=== PATIENT | female | born 1940 | race Caucasian/White ===

== ENCOUNTER 2020-07-28 12:00 | Outpatient (REF) | payer MEDICARE, OTHER, SELFPAY ==
[2020-07-28 12:43] LABS: MANUAL DIFF FLAG NO
[2020-07-28 12:44] LABS: Basophils Percent Auto 0.4 % (0-2); Eosinophils Absolute Auto 0.2 X10*3/uL (0.0-0.4); Eosinophils Percent Auto 2.5 % (0-4); Hematocrit 37.9 % (37-47); Hemoglobin 11.9 g/dl (12.0-16.0); Imm Gran Abs Auto 0.03 X10*3/uL (0.00-0.03); Imm Gran Pct Auto 0.3 % (0.0-0.4); Lymphocytes Absolute Auto 2.7 X10*3/uL (1.2-4.9); Lymphocytes Percent Auto 28.1 % (20-40); Mean Corpuscular HGB Conc 31.4 g/dl (31.0-35.0); Mean Corpuscular Hemoglobin 23.7 pg (27.0-33.0); Mean Corpuscular Volume 75.5 fL (80-98); Mean Platelet Volume 9.7 fL (9.4-12.3); Monocytes Absolute Auto 0.7 X10*3/uL (0.1-1.2); Monocytes Percent Auto 7.6 % (2-11); Neutrophils Absolute Auto 5.9 X10*3/uL (2.0-8.3); Neutrophils Percent Auto 61.1 % (45-73); Platelet Count 372 X10*3/uL (160-400); Red Blood Count 5.02 X10*6/uL (4.20-5.50); Red Cell Distribution Width 14.3 % (11.0-16.0); White Blood Count 9.7 X10*3/uL (4.8-10.8)
[2020-07-28 12:50] LABS: Estimated Average Glucose 169 mg/dL; Hemoglobin A1c % 7.5 %
[2020-07-28 13:11] LABS: Anion Gap 17 (12-20); Blood Urea Nitrogen 25 mg/dL (9-16); Calcium 9.7 mg/dL (8.4-10.2); Carbon Dioxide 32 mmol/L (22-29); Chloride 98 mmol/L (96-108); Cholesterol 172 mg/dL; Estimated Glomerular Filt Rate 57; Glucose Fasting 95 mg/dL (60-99); HDL Cholesterol 57 mg/dL; LDL Cholesterol Calculated 94 mg/dl; Sodium 143 mmol/L (135-145); Triglycerides 107 mg/dL
== END 2020-07-28 12:01 | disposition home or self-care (01) ==
LOC: HO.LAB 12:00
PROVIDERS: PCP Internal Medicine; Visit Provider Nurse Practitioner Family
DX: I25.10 Atherosclerotic heart disease of native coronary artery without angina pectoris (principal); I10 Essential (primary) hypertension; E11.65 Type 2 diabetes mellitus with hyperglycemia; J32.9 Chronic sinusitis, unspecified
CPT/HCPCS: 36415; 80048; 80061; 83036; 85025

== ENCOUNTER 2020-08-12 09:36 | Outpatient (REF) | payer MEDICARE, OTHER, SELFPAY ==
--- NOTE | 2020-08-12 09:43 | XR_ITS ---
EXAMINATION: XR SHOULDER, LEFT CLINICAL INFORMATION: Pain COMPARISON: None TECHNIQUE: AP external rotation, Grashey, scapular Y, and axillary views of the left shoulder. FINDINGS: Humeral head may be slightly high with respect to the glenoid. Bone alignment is otherwise normal. No fracture or dislocation is seen. There is arthritis at the acromioclavicular joint. There is a small undersurface acromial osteophyte. Soft tissues are unremarkable. XR/XR shoulder LT min 2V IMPRESSION: Arthritis at the acromioclavicular joint and undersurface acromial osteophyte. High humeral head with respect to the glenoid questionable for rotator cuff disease.
== END 2020-08-12 09:37 | disposition home or self-care (01) ==
LOC: HO.XRAY 09:36
PROVIDERS: PCP Internal Medicine; Visit Provider Internal Medicine
DX: E11.65 Type 2 diabetes mellitus with hyperglycemia (principal)
CPT/HCPCS: 73030

== ENCOUNTER 2020-08-17 08:28 | Outpatient (REF) | payer MEDICARE, OTHER, SELFPAY | END 2020-08-17 08:29 | disposition home or self-care (01) | LOC: HO.HOSX 08:28 | PROVIDERS: Visit Provider Orthopaedic Surgery | DX: Z13.89 Encounter for screening for other disorder (principal) ==

== ENCOUNTER → 2020-09-03 09:24 | Outpatient (BNVA) | payer MEDICARE, OTHER, SELFPAY | PROVIDERS: Visit Provider Orthopaedic Surgery | DX: M12.819 Other specific arthropathies, not elsewhere classified, unspecified shoulder (principal) | CPT/HCPCS: 99202 ==

== ENCOUNTER 2020-11-19 09:08 | Outpatient (REF) | payer MEDICARE, OTHER, SELFPAY ==
[2020-11-19 09:42] LABS: MANUAL DIFF FLAG NO
[2020-11-19 09:45] LABS: Basophils Absolute Auto 0.1 X10*3/uL (0.0-0.2); Basophils Percent Auto 0.6 % (0-2); Eosinophils Absolute Auto 0.2 X10*3/uL (0.0-0.4); Eosinophils Percent Auto 2.5 % (0-4); Hematocrit 35.5 % (37-47); Hemoglobin 11.1 g/dl (12.0-16.0); Imm Gran Abs Auto 0.05 X10*3/uL (0.00-0.03); Imm Gran Pct Auto 0.5 % (0.0-0.4); Lymphocytes Absolute Auto 2.7 X10*3/uL (1.2-4.9); Mean Corpuscular HGB Conc 31.3 g/dl (31.0-35.0); Mean Corpuscular Hemoglobin 23.4 pg (27.0-33.0); Mean Corpuscular Volume 74.9 fL (80-98); Mean Platelet Volume 9.5 fL (9.4-12.3); Monocytes Absolute Auto 0.7 X10*3/uL (0.1-1.2); Monocytes Percent Auto 7.9 % (2-11); Neutrophils Absolute Auto 5.6 X10*3/uL (2.0-8.3); Neutrophils Percent Auto 59.5 % (45-73); Platelet Count 347 X10*3/uL (160-400); Red Blood Count 4.74 X10*6/uL (4.20-5.50); Red Cell Distribution Width 14.9 % (11.0-16.0); White Blood Count 9.4 X10*3/uL (4.8-10.8)
[2020-11-19 09:57] LABS: Estimated Average Glucose 169 mg/dL; Hemoglobin A1c % 7.5 %
[2020-11-19 10:08] LABS: Alanine Aminotransferase 15 U/L (0-31); Albumin Level 4.4 g/dL (3.5-5.0); Alkaline Phosphatase 113 U/L (39-117); Anion Gap 14 (12-20); Aspartate Amino Transferase 11 U/L (5-31); Bilirubin Total 0.4 mg/dL (0.0-1.0); Blood Urea Nitrogen 22 mg/dL (9-16); Calcium 9.6 mg/dL (8.4-10.2); Carbon Dioxide 34 mmol/L (22-29); Chloride 99 mmol/L (96-108); Cholesterol 195 mg/dL; Estimated Glomerular Filt Rate 49; Glucose Fasting 98 mg/dL (60-99); HDL Cholesterol 56 mg/dL; Iron 36 mcg/dL (30-160); LDL Cholesterol Calculated 108 mg/dl; Percent Iron Saturation 8 % (15-50); Potassium 4.2 mmol/L (3.3-5.1); Sodium 143 mmol/L (135-145); Total Iron Binding Capacity 441 mcg/dL (228-428); Total Protein 7.7 g/dL (6.5-8.0); Triglycerides 155 mg/dL; Unsaturated Iron Binding 405 ug/dL
[2020-11-19 10:25] LABS: Creatinine Urine 53.17 mg/dL; Microalbum/Creatinine Ratio Ur 379.9 ug/mg cr
[2020-11-19 11:43] LABS: Folate 9.8 ng/mL (> or = 4.0); Vitamin B12 338 pg/mL (200-900)
== END 2020-11-19 09:09 | disposition home or self-care (01) ==
LOC: HO.LAB 09:08
PROVIDERS: PCP Internal Medicine; Visit Provider Internal Medicine
DX: E11.65 Type 2 diabetes mellitus with hyperglycemia (principal); E78.5 Hyperlipidemia, unspecified; D64.9 Anemia, unspecified
CPT/HCPCS: 36415; 80053; 80061; 82043; 82607; 82746; 83036; 83540; 85025

== ENCOUNTER 2021-05-04 07:59 | Outpatient (REF) | payer MEDICARE, OTHER, SELFPAY ==
[2021-05-04 08:22] LABS: MANUAL DIFF FLAG NO
[2021-05-04 09:13] LABS: Basophils Percent Auto 0.4 % (0-2); Eosinophils Absolute Auto 0.2 X10*3/uL (0.0-0.4); Eosinophils Percent Auto 1.6 % (0-4); Hemoglobin 11.8 g/dl (12.0-16.0); Imm Gran Abs Auto 0.04 X10*3/uL (0.00-0.03); Imm Gran Pct Auto 0.4 % (0.0-0.4); Lymphocytes Absolute Auto 2.4 X10*3/uL (1.2-4.9); Lymphocytes Percent Auto 22.9 % (20-40); Mean Corpuscular HGB Conc 31.9 g/dl (31.0-35.0); Mean Corpuscular Hemoglobin 23.5 pg (27.0-33.0); Mean Corpuscular Volume 73.7 fL (80-98); Mean Platelet Volume 9.8 fL (9.4-12.3); Monocytes Absolute Auto 0.7 X10*3/uL (0.1-1.2); Monocytes Percent Auto 6.9 % (2-11); Neutrophils Percent Auto 67.8 % (45-73); Platelet Count 345 X10*3/uL (160-400); Red Blood Count 5.02 X10*6/uL (4.20-5.50); Red Cell Distribution Width 15.3 % (11.0-16.0); White Blood Count 10.3 X10*3/uL (4.8-10.8)
[2021-05-04 09:33] LABS: Creatinine Urine 35.99 mg/dL; Microalbum/Creatinine Ratio Ur 575.1 ug/mg cr
[2021-05-04 09:41] LABS: Alanine Aminotransferase 14 U/L (0-31); Albumin Level 4.4 g/dL (3.5-5.0); Alkaline Phosphatase 113 U/L (39-117); Anion Gap 16 (12-20); Aspartate Amino Transferase 12 U/L (5-31); Bilirubin Total 0.5 mg/dL (0.0-1.0); Blood Urea Nitrogen 20 mg/dL (9-16); Calcium 10.1 mg/dL (8.4-10.2); Carbon Dioxide 29 mmol/L (22-29); Chloride 100 mmol/L (96-108); Cholesterol 183 mg/dL; Estimated Glomerular Filt Rate 48; Glucose Fasting 131 mg/dL (60-99); HDL Cholesterol 57 mg/dL; LDL Cholesterol Calculated 107 mg/dl; Potassium 4.1 mmol/L (3.3-5.1); Sodium 141 mmol/L (135-145); Total Protein 7.8 g/dL (6.5-8.0); Triglycerides 95 mg/dL
[2021-05-08 12:45] LABS: Vitamin D 25-OH, D2 <4 ng/mL; Vitamin D 25-OH, D3 34 ng/mL; Vitamin D 25-OH, Total 34 ng/mL (30-100)
== END 2021-05-04 08:00 | disposition home or self-care (01) ==
LOC: HO.LAB 07:59
PROVIDERS: PCP Internal Medicine; Visit Provider Internal Medicine
DX: E11.65 Type 2 diabetes mellitus with hyperglycemia (principal); D64.9 Anemia, unspecified; E78.5 Hyperlipidemia, unspecified; E55.9 Vitamin D deficiency, unspecified
CPT/HCPCS: 36415; 80053; 80061; 82043; 82306; 85025

== ENCOUNTER → 2021-06-03 11:52 | Outpatient (REF) | payer MEDICARE, OTHER, SELFPAY ==
--- NOTE | 2021-06-03 12:05 | ECG_ITS ---
Test Reason : chest pain Blood Pressure : / mmHG Vent. Rate : 085 BPM Atrial Rate : 085 BPM P-R Int : 212 ms QRS Dur : 126 ms QT Int : 386 ms P-R-T Axes : 084 046 063 degrees QTc Int : 459 ms Sinus rhythm with 1st degree A-V block Right bundle branch block Nonspecific ST abnormality Abnormal ECG No previous ECGs available Referred By: Pam Montoya Electronically Signed By:LIAM CARRANZA MD
== END ==
LOC: HO.CARD 11:52
PROVIDERS: PCP Internal Medicine; Visit Provider Internal Medicine
DX: R07.9 Chest pain, unspecified (principal)
CPT/HCPCS: 93005

== ENCOUNTER 2021-06-23 06:37 | Outpatient (REF) | payer MEDICARE, OTHER, SELFPAY ==
[2021-06-23 06:42] LABS: MANUAL DIFF FLAG NO
[2021-06-23 07:20] LABS: Basophils Absolute Auto 0.1 X10*3/uL (0.0-0.2); Basophils Percent Auto 0.7 % (0-2); Eosinophils Absolute Auto 0.2 X10*3/uL (0.0-0.4); Eosinophils Percent Auto 1.8 % (0-4); Hematocrit 38.2 % (37.0-47.0); Hemoglobin 12.5 g/dl (12.0-16.0); Imm Gran Abs Auto 0.02 X10*3/uL (0.00-0.03); Imm Gran Pct Auto 0.2 % (0.0-0.4); Lymphocytes Absolute Auto 3.2 X10*3/uL (1.2-4.9); Lymphocytes Percent Auto 37.6 % (20-40); Mean Corpuscular HGB Conc 32.7 g/dl (31.0-35.0); Mean Corpuscular Hemoglobin 24.8 pg (27.0-33.0); Mean Corpuscular Volume 75.6 fL (80.0-98.0); Mean Platelet Volume 9.9 fL (9.4-12.3); Monocytes Absolute Auto 0.8 X10*3/uL (0.1-1.2); Monocytes Percent Auto 9.1 % (2-11); Neutrophils Absolute Auto 4.2 x10*3/uL (2.0-8.3); Neutrophils Percent Auto 50.6 % (45-73); Platelet Count 323 X10*3/uL (160-400); Red Blood Count 5.05 X10*6/uL (4.20-5.50); Red Cell Distribution Width 14.3 % (11.0-16.0); White Blood Count 8.4 X10*3/uL (4.8-10.8)
[2021-06-23 07:42] LABS: Alanine Aminotransferase 14 U/L (0-31); Albumin Level 4.6 g/dL (3.5-5.0); Alkaline Phosphatase 92 U/L (39-117); Anion Gap 16 (12-20); Aspartate Amino Transferase 12 U/L (5-31); Bilirubin Total 0.5 mg/dL (0.0-1.0); Blood Urea Nitrogen 31 mg/dL (9-16); Calcium 10.1 mg/dL (8.4-10.2); Carbon Dioxide 31 mmol/L (22-29); Chloride 99 mmol/L (96-108); Estimated Glomerular Filt Rate 42; Glucose Random 147 mg/dL (60-115); Magnesium 1.6 mg/dL (1.6-2.6); Potassium 4.3 mmol/L (3.3-5.1); Sodium 142 mmol/L (135-145); Total Protein 8.1 g/dL (6.5-8.0)
== END 2021-06-23 06:38 | disposition home or self-care (01) ==
LOC: HO.LAB 06:37
PROVIDERS: PCP Internal Medicine; Visit Provider Internal Medicine
DX: I48.91 Unspecified atrial fibrillation (principal); E11.65 Type 2 diabetes mellitus with hyperglycemia; G62.9 Polyneuropathy, unspecified
CPT/HCPCS: 36415; 80053; 83735; 85025

== ENCOUNTER → 2021-07-13 08:53 | Outpatient (BNVA) | payer MEDICARE, OTHER, SELFPAY | PROVIDERS: PCP Internal Medicine; Referring Provider Internal Medicine; Visit Provider Nurse Practitioner Family | DX: G47.19 Other hypersomnia (principal); G47.9 Sleep disorder, unspecified; R06.83 Snoring | CPT/HCPCS: 99202 ==

== ENCOUNTER → 2021-08-12 12:55 | Outpatient (BNVA) | payer MEDICARE, OTHER, SELFPAY | PROVIDERS: PCP Internal Medicine; Referring Provider Internal Medicine; Visit Provider Internal Medicine Cardiovascular Disease | DX: I48.0 Paroxysmal atrial fibrillation (principal) | CPT/HCPCS: 93005; 99202 ==

== ENCOUNTER → 2021-09-01 08:59 | Outpatient (REF) | payer MEDICARE, OTHER, SELFPAY ==
--- NOTE | ~2021-09-01 | MM_ITS ---
EXAMINATION: BONE DENSITOMETRY CLINICAL INDICATION: Encounter for screening for osteoporosis. COMPARISON: This is the patient's baseline examination. TECHNIQUE: Using a GoGoPin DXA System (software version: 13.1) manufactured by [employer], dual-energy x-ray absorptiometry was performed of the lumbar spine and left hip. The images are of good technical quality. Summary results are attached. FINDINGS: AP SPINE L1-L4: BMD 0.934 g/cm2, Z-score -0.1, T-score -2.0, osteopenia. LEFT FEMUR, NECK: BMD 0.694 g/cm2, Z-score -0.2, T-score -2.5, osteoporosis. LEFT FEMUR, TOTAL: BMD 0.858 g/cm2, Z-score 1.0, T-score -1.2, osteopenia. IDENTIFIED RISK FACTORS: Menopause, history of fracture (adult), anticonvulsants, height loss. HISTORY OF FRACTURE: Shoulder. MEDICATIONS: None listed. MM/XR DEXA axial skeleton IMPRESSION: 1. DIAGNOSIS: Osteoporosis based on the lowest T-score value of -2.5 in the femoral neck applying World Health Organization criteria. 2. 10 10-YEAR FRACTURE RISK PREDICTION, FRAX: According to the guidelines, FRAX calculation should only be performed on patients in the osteopenia bone density category. Therefore, FRAX was not performed on this patient. 3. Treatment Recommendations: NOF guidelines recommend consideration for treatment in postmenopausal women and men age 50 and older presenting with the following: -A hip or vertebral (clinical or morphometric) fracture. -T-score less than or equal to -2.5 at the femoral neck or spine after appropriate evaluation to exclude secondary causes. -Low bone mass at the hip or spine and a 10-year fracture probability by FRAX of greater than or equal to 3% for hip fracture or greater than or equal to 20% for major osteoporotic fracture based on the [place] adapted WHO algorithm. 4. Other Recommendations: All treatment decisions require clinical judgment and consideration of individual patient factors, including patient preferences, comorbidities, previous drug use, risk factors not captured in the FRAX model (e.g. frailty, falls, vitamin D deficiency, increased bone turnover, interval significant decline in bone density) and possible under or overestimation of fracture risk by FRAX. Additional medical evaluation for secondary cause of low bone mineral density may be appropriate. FUTURE SCAN RECOMMENDATION: People with diagnosed cases of osteoporosis or at high risk for fracture should have regular bone mineral density tests. For patients eligible for Medicare, routine testing is allowed once every 2 years. The testing frequency can be increased to one year for patients who have rapidly progressing disease, those who are receiving or discontinuing medical therapy to restore bone mass, or have additional risk factors.
== END ==
LOC: HO.SL 08:59
PROVIDERS: Visit Provider Nurse Practitioner Family
DX: Z13.820 Encounter for screening for osteoporosis (principal); G47.19 Other hypersomnia; G47.9 Sleep disorder, unspecified; R06.83 Snoring; R29.890 Loss of height; Z78.0 Asymptomatic menopausal state; Z79.899 Other long term (current) drug therapy
CPT/HCPCS: 77080; 95806

== ENCOUNTER 2021-09-04 07:48 | Outpatient (REF) | payer MEDICARE, OTHER, SELFPAY ==
--- NOTE | ~2021-09-04 | MM_ITS ---
EXAMINATION: MM SCREENING DIGITAL BREAST TOMOSYNTHESIS, BILATERAL CLINICAL INFORMATION: Screening. Asymptomatic. The lifetime risk of breast cancer based on the Tyrer-Cuzick Model is under 2%. COMPARISON: Outside mammography: 07/01/2019 ([facility]) TECHNIQUE: Digital breast tomosynthesis is performed in both the craniocaudal and mediolateral oblique views along with computer-aided detection (CAD). Synthesized 2D images are generated from the tomosynthesis. FINDINGS: The breasts are heterogeneously dense, which may obscure small masses (ACR BI-RADS breast composition Category c). Parenchymal pattern is similar to outside exam. There is no significant mass or architectural abnormality. Biopsy clip marker again seen adjacent to old stable nodule mid upper outer right breast. There are scattered bilateral round and coarse and vascular calcifications again seen. The axilla and skin contours are unremarkable. No significant changes. MM/MM tomosynthesis screening BI IMPRESSION: No mammographic evidence of malignancy. ASSESSMENT: BI-RADS 2: Benign RECOMMENDATION: Routine annual mammography screening. This patient's information was entered into a reminder system with a target due date for their next mammogram.
== END 2021-09-04 07:49 | disposition home or self-care (01) ==
LOC: HO.MAMMO 07:48
PROVIDERS: PCP Internal Medicine; Visit Provider Internal Medicine
DX: Z12.31 Encounter for screening mammogram for malignant neoplasm of breast (principal)
CPT/HCPCS: 77063; 77067

== ENCOUNTER 2021-09-22 14:48 | Outpatient (REF) | payer MEDICARE, OTHER, SELFPAY ==
[2021-09-22 15:55] LABS: MANUAL DIFF FLAG NO
[2021-09-22 16:27] LABS: Basophils Percent Auto 0.5 % (0-2); Eosinophils Absolute Auto 0.1 X10*3/uL (0.0-0.4); Eosinophils Percent Auto 1.4 % (0-4); Hematocrit 34.6 % (37.0-47.0); Imm Gran Abs Auto 0.02 X10*3/uL (0.00-0.03); Imm Gran Pct Auto 0.2 % (0.0-0.4); Lymphocytes Absolute Auto 2.7 X10*3/uL (1.2-4.9); Lymphocytes Percent Auto 31.1 % (20-40); Mean Corpuscular HGB Conc 31.8 g/dl (31.0-35.0); Mean Corpuscular Hemoglobin 24.5 pg (27.0-33.0); Mean Corpuscular Volume 77.1 fL (80.0-98.0); Mean Platelet Volume 9.7 fL (9.4-12.3); Monocytes Absolute Auto 0.6 X10*3/uL (0.1-1.2); Monocytes Percent Auto 7.2 % (2-11); Neutrophils Absolute Auto 5.1 x10*3/uL (2.0-8.3); Neutrophils Percent Auto 59.6 % (45-73); Platelet Count 310 X10*3/uL (160-400); Red Blood Count 4.49 X10*6/uL (4.20-5.50); Red Cell Distribution Width 14.5 % (11.0-16.0); White Blood Count 8.5 X10*3/uL (4.8-10.8)
[2021-09-22 16:56] LABS: Alanine Aminotransferase 13 U/L (0-31); Albumin Level 4.2 g/dL (3.5-5.0); Alkaline Phosphatase 118 U/L (39-117); Anion Gap 13 (12-20); Aspartate Amino Transferase 12 U/L (5-31); Bilirubin Total 0.4 mg/dL (0.0-1.0); Blood Urea Nitrogen 26 mg/dL (9-16); Calcium 9.9 mg/dL (8.4-10.2); Carbon Dioxide 31 mmol/L (22-29); Chloride 100 mmol/L (96-108); Estimated Glomerular Filt Rate 45; Glucose Random 145 mg/dL (60-115); Phosphorus 2.9 mg/dL (2.7-4.5); Potassium 4.5 mmol/L (3.3-5.1); Sodium 139 mmol/L (135-145); Total Protein 7.4 g/dL (6.5-8.0)
[2021-09-22 17:17] LABS: Free T4 (Free Thyroxine) 1.01 ng/dL (0.71-1.85); Thyroid Stimulating Hormone 2.31 uIU/mL (0.32-4.0); Vitamin D 25-OH Total 24.8 ng/mL (>30)
[2021-09-22 17:24] LABS: Creatinine Urine 57.29 mg/dL; Microalbum/Creatinine Ratio Ur 352.5 ug/mg cr
[2021-09-23 14:33] LABS: Calcium (PTHI) 9.6 mg/dL (8.6-10.4); PTHI 54 pg/mL (14-64)
[2021-09-24 15:51] LABS: Calcium, Ionized 4.9 mg/dL (4.8-5.6)
[2021-09-26 11:41] LABS: Alkaline Phosphatase Bone 19.6 mcg/L (see note)
[2021-09-27 13:27] LABS: Prot Elec - Albumin 4.1 g/dL (3.8-4.8); Prot Elec - Alpha1 0.3 g/dL (0.2-0.3); Prot Elec - Alpha2 0.7 g/dL (0.5-0.9); Prot Elec - Beta 1 0.6 g/dL (0.4-0.6); Prot Elec - Beta 2 0.6 g/dL (0.2-0.5); Prot Elec - Gamma 0.9 g/dL (0.8-1.7); Prot Elec - Total Protein 7.2 g/dL (6.1-8.1)
== END 2021-09-22 14:49 | disposition home or self-care (01) ==
LOC: HO.LAB 14:48
PROVIDERS: PCP Internal Medicine; Visit Provider Internal Medicine
DX: M81.0 Age-related osteoporosis without current pathological fracture (principal); E55.9 Vitamin D deficiency, unspecified; D64.9 Anemia, unspecified; I48.0 Paroxysmal atrial fibrillation; E11.9 Type 2 diabetes mellitus without complications
CPT/HCPCS: 36415; 80053; 82043; 82306; 82330; 83970; 84075; 84100; 84165; 84439; 84443; 85025; 99202

== ENCOUNTER 2021-09-23 | Outpatient (REF) | payer MEDICARE, OTHER, SELFPAY ==
[2021-09-29 06:32] LABS: N-Telopeptide 34 (see note); NTXCreaRU 34 mg/dL (20-275)
== END 2021-09-23 00:01 | disposition home or self-care (01) ==
LOC: HO.LNP
PROVIDERS: Visit Provider Internal Medicine
DX: M81.0 Age-related osteoporosis without current pathological fracture (principal)
CPT/HCPCS: 82523

== ENCOUNTER 2021-09-25 08:35 | Outpatient (REF) | payer MEDICARE, OTHER, SELFPAY ==
[2021-09-25 09:28] LABS: Total Volume 24 Hour Urine 1400 mL
[2021-09-25 09:37] LABS: Creatinine, 24Hr Urine 0.6 G/Day (1.0-2.0); Creatinine, mg/dL 43.29
[2021-09-26 18:32] LABS: Calcium, 24 Hr Urine 36 mg/24 h; Calcium/Creatinine Ratio 55 mg/g creat (30-275); Creatinine 24Hr Urine 0.66 g/24 h (0.50-2.15)
== END 2021-09-25 08:36 | disposition home or self-care (01) ==
LOC: HO.LNP 08:35
PROVIDERS: Visit Provider Internal Medicine
DX: M81.0 Age-related osteoporosis without current pathological fracture (principal)
CPT/HCPCS: 82340; 82523; 82570

== ENCOUNTER → 2021-10-01 15:03 | Outpatient (BNVA) | payer MEDICARE, OTHER, SELFPAY | PROVIDERS: PCP Internal Medicine; Visit Provider Nurse Practitioner Family | DX: G47.9 Sleep disorder, unspecified (principal) | CPT/HCPCS: 99212 ==

== ENCOUNTER → 2021-10-07 11:44 | Outpatient (BNV) | payer MEDICARE, OTHER, SELFPAY | PROVIDERS: PCP Internal Medicine; Referring Provider Internal Medicine; Visit Provider Internal Medicine Medical Oncology | DX: R77.9 Abnormality of plasma protein, unspecified (principal); D64.9 Anemia, unspecified | CPT/HCPCS: 99203; 99212; 99213; 99214 ==

== ENCOUNTER 2021-10-14 09:33 | Outpatient (REF) | payer MEDICARE, OTHER, SELFPAY ==
[2021-10-14 10:35] LABS: Alanine Aminotransferase 15 U/L (0-31); Albumin Level 4.3 g/dL (3.5-5.0); Alkaline Phosphatase 116 U/L (39-117); Anion Gap 15 (12-20); Aspartate Amino Transferase 11 U/L (5-31); Bilirubin Total 0.5 mg/dL (0.0-1.0); Blood Urea Nitrogen 24 mg/dL (9-16); Calcium 9.9 mg/dL (8.4-10.2); Carbon Dioxide 27 mmol/L (22-29); Chloride 103 mmol/L (96-108); Cholesterol 191 mg/dL; Estimated Glomerular Filt Rate 49; Glucose Fasting 131 mg/dL (60-99); HDL Cholesterol 61 mg/dL; LDL Cholesterol Calculated 110 mg/dl; Potassium 4.6 mmol/L (3.3-5.1); Sodium 140 mmol/L (135-145); Total Protein 7.6 g/dL (6.5-8.0); Triglycerides 100 mg/dL
[2021-10-20 13:16] LABS: Vitamin D 25-OH, D2 <4 ng/mL; Vitamin D 25-OH, D3 36 ng/mL; Vitamin D 25-OH, Total 36 ng/mL (30-100)
== END 2021-10-14 09:34 | disposition home or self-care (01) ==
LOC: HO.LAB 09:33
PROVIDERS: PCP Internal Medicine; Visit Provider Internal Medicine
DX: E78.5 Hyperlipidemia, unspecified (principal); E11.65 Type 2 diabetes mellitus with hyperglycemia; E55.9 Vitamin D deficiency, unspecified
CPT/HCPCS: 36415; 80053; 80061; 82306

== ENCOUNTER → 2021-12-16 10:22 | Outpatient (BNVA) | payer MEDICARE, OTHER, SELFPAY | PROVIDERS: PCP Internal Medicine; Visit Provider Internal Medicine | DX: M81.0 Age-related osteoporosis without current pathological fracture (principal); E55.9 Vitamin D deficiency, unspecified; M25.512 Pain in left shoulder | CPT/HCPCS: Q3014 ==

== ENCOUNTER 2021-12-17 06:58 | Outpatient (REF) | payer MEDICARE, OTHER, MEDICAID, SELFPAY ==
--- NOTE | ~2021-12-17 | XR_ITS ---
EXAMINATION: XR SHOULDER, LEFT XR HUMERUS, LEFT CLINICAL INFORMATION: Left shoulder pain COMPARISON: None TECHNIQUE: Four views of the left shoulder. 2 views of the left humerus. FINDINGS: Left shoulder: No fracture or dislocation. The glenohumeral joint is well aligned with small marginal osteophytes. Mild hypertrophic degenerative change of the acromioclavicular joint. The visualized lung is clear. The visualized ribs are intact. Left humerus: No fracture or cortical disruption. Appropriate alignment at the elbow. The soft tissues are unremarkable. XR/XR humerus LT IMPRESSION: Mild degenerative change of the left shoulder.
--- NOTE | ~2021-12-17 | XR_ITS ---
EXAMINATION: XR SHOULDER, LEFT XR HUMERUS, LEFT CLINICAL INFORMATION: Left shoulder pain COMPARISON: None TECHNIQUE: Four views of the left shoulder. 2 views of the left humerus. FINDINGS: Left shoulder: No fracture or dislocation. The glenohumeral joint is well aligned with small marginal osteophytes. Mild hypertrophic degenerative change of the acromioclavicular joint. The visualized lung is clear. The visualized ribs are intact. Left humerus: No fracture or cortical disruption. Appropriate alignment at the elbow. The soft tissues are unremarkable. XR/XR shoulder LT min 2V IMPRESSION: Mild degenerative change of the left shoulder.
[2021-12-17 08:01] LABS: Alanine Aminotransferase 11 U/L (0-31); Albumin Level 4.1 g/dL (3.5-5.0); Alkaline Phosphatase 122 U/L (39-117); Anion Gap 13 (12-20); Aspartate Amino Transferase 10 U/L (5-31); Bilirubin Total 0.3 mg/dL (0.0-1.0); Blood Urea Nitrogen 21 mg/dL (9-16); Calcium 9.9 mg/dL (8.4-10.2); Carbon Dioxide 29 mmol/L (22-29); Chloride 103 mmol/L (96-108); Estimated Glomerular Filt Rate 50; Glucose Random 127 mg/dL (60-115); Potassium 4.9 mmol/L (3.3-5.1); Sodium 140 mmol/L (135-145); Total Protein 7.4 g/dL (6.5-8.0)
[2021-12-17 08:16] LABS: Vitamin D 25-OH Total 35.3 ng/mL (>30)
[2021-12-21 13:41] LABS: Calcium (PTHI) 9.6 mg/dL (8.6-10.4); PTHI 48 pg/mL (16-77)
== END 2021-12-17 06:59 | disposition home or self-care (01) ==
LOC: HO.LAB 06:58
PROVIDERS: PCP Internal Medicine; Visit Provider Internal Medicine
DX: M25.512 Pain in left shoulder (principal); E55.9 Vitamin D deficiency, unspecified; M81.0 Age-related osteoporosis without current pathological fracture
CPT/HCPCS: 36415; 73030; 73060; 80053; 82306; 83970; 84100

== ENCOUNTER 2022-01-21 07:06 | Outpatient (REF) | payer MEDICARE, OTHER, MEDICAID, SELFPAY ==
[2022-01-21 07:32] LABS: MANUAL DIFF FLAG NO
[2022-01-21 07:41] LABS: Basophils Percent Auto 0.5 % (0-2); Eosinophils Absolute Auto 0.2 X10*3/uL (0.0-0.4); Eosinophils Percent Auto 3.1 % (0-4); Hematocrit 34.3 % (37.0-47.0); Hemoglobin 10.8 g/dl (12.0-16.0); Imm Gran Abs Auto 0.03 X10*3/uL (0.00-0.03); Imm Gran Pct Auto 0.4 % (0.0-0.4); Lymphocytes Absolute Auto 2.3 X10*3/uL (1.2-4.9); Lymphocytes Percent Auto 29.7 % (20-40); Mean Corpuscular HGB Conc 31.5 g/dl (31.0-35.0); Mean Corpuscular Hemoglobin 24.6 pg (27.0-33.0); Mean Corpuscular Volume 78.1 fL (80.0-98.0); Mean Platelet Volume 9.2 fL (9.4-12.3); Monocytes Absolute Auto 0.6 X10*3/uL (0.1-1.2); Monocytes Percent Auto 8.2 % (2-11); Neutrophils Absolute Auto 4.5 x10*3/uL (2.0-8.3); Neutrophils Percent Auto 58.1 % (45-73); Platelet Count 302 X10*3/uL (160-400); Red Blood Count 4.39 X10*6/uL (4.20-5.50); Red Cell Distribution Width 13.5 % (11.0-16.0); White Blood Count 7.8 X10*3/uL (4.8-10.8)
[2022-01-21 08:12] LABS: Alanine Aminotransferase 9 U/L (0-31); Albumin Level 4.3 g/dL (3.5-5.0); Alkaline Phosphatase 127 U/L (39-117); Anion Gap 13 (12-20); Aspartate Amino Transferase 9 U/L (5-31); Bilirubin Total 0.2 mg/dL (0.0-1.0); Blood Urea Nitrogen 25 mg/dL (9-16); Calcium 9.5 mg/dL (8.4-10.2); Carbon Dioxide 29 mmol/L (22-29); Chloride 105 mmol/L (96-108); Cholesterol 176 mg/dL; Estimated Glomerular Filt Rate 49; Glucose Fasting 123 mg/dL (60-99); HDL Cholesterol 63 mg/dL; LDL Cholesterol Calculated 90 mg/dl; Potassium 4.7 mmol/L (3.3-5.1); Sodium 142 mmol/L (135-145); Total Protein 7.5 g/dL (6.5-8.0); Triglycerides 115 mg/dL
[2022-01-21 08:34] LABS: Vitamin D 25-OH Total 38.7 ng/mL (>30)
[2022-01-21 10:21] LABS: Creatinine Urine 34.46 mg/dL; Microalbum/Creatinine Ratio Ur 838.6 ug/mg cr
== END 2022-01-21 07:07 | disposition home or self-care (01) ==
LOC: HO.LAB 07:06
PROVIDERS: PCP Internal Medicine; Visit Provider Internal Medicine
DX: E78.5 Hyperlipidemia, unspecified (principal); E55.9 Vitamin D deficiency, unspecified; D64.9 Anemia, unspecified; I48.0 Paroxysmal atrial fibrillation; E11.9 Type 2 diabetes mellitus without complications
CPT/HCPCS: 36415; 80053; 80061; 82043; 82306; 85025

== ENCOUNTER 2022-01-28 06:54 | Outpatient (REF) | payer MEDICARE, OTHER, MEDICAID, SELFPAY ==
[2022-01-28 07:40] LABS: MANUAL DIFF FLAG NO
[2022-01-28 07:42] LABS: Basophils Percent Auto 0.3 % (0-2); Eosinophils Absolute Auto 0.2 X10*3/uL (0.0-0.4); Eosinophils Percent Auto 2.2 % (0-4); Hematocrit 32.3 % (37.0-47.0); Hemoglobin 10.4 g/dl (12.0-16.0); Imm Gran Abs Auto 0.04 X10*3/uL (0.00-0.03); Imm Gran Pct Auto 0.4 % (0.0-0.4); Lymphocytes Percent Auto 32.8 % (20-40); Mean Corpuscular HGB Conc 32.2 g/dl (31.0-35.0); Mean Corpuscular Hemoglobin 24.7 pg (27.0-33.0); Mean Corpuscular Volume 76.7 fL (80.0-98.0); Mean Platelet Volume 9.4 fL (9.4-12.3); Monocytes Absolute Auto 0.7 X10*3/uL (0.1-1.2); Monocytes Percent Auto 8.2 % (2-11); Neutrophils Absolute Auto 5.1 x10*3/uL (2.0-8.3); Neutrophils Percent Auto 56.1 % (45-73); Platelet Count 311 X10*3/uL (160-400); Red Blood Count 4.21 X10*6/uL (4.20-5.50); Red Cell Distribution Width 13.5 % (11.0-16.0)
== END 2022-01-28 06:55 | disposition home or self-care (01) ==
LOC: HO.MDS 06:54
PROVIDERS: PCP Internal Medicine; Visit Provider Internal Medicine Medical Oncology
DX: D50.9 Iron deficiency anemia, unspecified (principal)
CPT/HCPCS: 36415; 85025; 96365; J2916

== ENCOUNTER 2022-02-01 14:09 | Outpatient (REF) | payer MEDICARE, OTHER, MEDICAID, SELFPAY | END 2022-02-01 14:10 | disposition home or self-care (01) | LOC: HO.MDS 14:09 | PROVIDERS: Visit Provider Internal Medicine Medical Oncology | DX: D50.9 Iron deficiency anemia, unspecified (principal) | CPT/HCPCS: 96365; J2916 ==

== ENCOUNTER 2022-02-09 12:44 | Outpatient (REF) | payer MEDICARE, OTHER, MEDICAID, SELFPAY | END 2022-02-09 12:45 | disposition home or self-care (01) | LOC: HO.MDS 12:44 | PROVIDERS: Visit Provider Internal Medicine Medical Oncology | DX: D50.9 Iron deficiency anemia, unspecified (principal) | CPT/HCPCS: 96365; J2916 ==

== ENCOUNTER 2022-02-16 10:45 | Outpatient (REF) | payer MEDICARE, MEDICAID, SELFPAY ==
[2022-02-16 11:12] LABS: MANUAL DIFF FLAG NO
[2022-02-16 11:18] LABS: Basophils Percent Auto 0.5 % (0-2); Eosinophils Absolute Auto 0.3 X10*3/uL (0.0-0.4); Eosinophils Percent Auto 3.2 % (0-4); Hematocrit 34.7 % (37.0-47.0); Hemoglobin 11.2 g/dl (12.0-16.0); Imm Gran Abs Auto 0.03 X10*3/uL (0.00-0.03); Imm Gran Pct Auto 0.4 % (0.0-0.4); Lymphocytes Absolute Auto 2.7 X10*3/uL (1.2-4.9); Lymphocytes Percent Auto 33.7 % (20-40); Mean Corpuscular HGB Conc 32.3 g/dl (31.0-35.0); Mean Corpuscular Hemoglobin 25.3 pg (27.0-33.0); Mean Corpuscular Volume 78.3 fL (80.0-98.0); Mean Platelet Volume 9.3 fL (9.4-12.3); Monocytes Absolute Auto 0.6 X10*3/uL (0.1-1.2); Monocytes Percent Auto 7.7 % (2-11); Neutrophils Absolute Auto 4.4 x10*3/uL (2.0-8.3); Neutrophils Percent Auto 54.5 % (45-73); Platelet Count 309 X10*3/uL (160-400); Red Blood Count 4.43 X10*6/uL (4.20-5.50); Red Cell Distribution Width 14.5 % (11.0-16.0); White Blood Count 8.1 X10*3/uL (4.8-10.8)
== END 2022-02-16 10:46 | disposition home or self-care (01) ==
LOC: HO.MDS 10:45
PROVIDERS: Visit Provider Internal Medicine Medical Oncology
DX: D50.9 Iron deficiency anemia, unspecified (principal); M81.0 Age-related osteoporosis without current pathological fracture; M25.512 Pain in left shoulder; E55.9 Vitamin D deficiency, unspecified
CPT/HCPCS: 36415; 85025; 96365; 99212; J2916

== ENCOUNTER 2022-02-23 13:55 | Outpatient (REF) | payer MEDICARE, OTHER, MEDICAID, SELFPAY | END 2022-02-23 13:56 | disposition home or self-care (01) | LOC: HO.MDS 13:55 | PROVIDERS: Visit Provider Internal Medicine Medical Oncology | DX: D50.9 Iron deficiency anemia, unspecified (principal) | CPT/HCPCS: 96365; J2916 ==

== ENCOUNTER 2022-03-02 14:17 | Outpatient (REF) | payer MEDICARE, OTHER, SELFPAY ==
[2022-03-02 14:52] LABS: MANUAL DIFF FLAG NO
[2022-03-02 14:55] LABS: Basophils Absolute Auto 0.1 X10*3/uL (0.0-0.2); Basophils Percent Auto 0.5 % (0-2); Eosinophils Absolute Auto 0.2 X10*3/uL (0.0-0.4); Eosinophils Percent Auto 1.9 % (0-4); Hematocrit 35.4 % (37.0-47.0); Hemoglobin 11.6 g/dl (12.0-16.0); Imm Gran Abs Auto 0.03 X10*3/uL (0.00-0.03); Imm Gran Pct Auto 0.3 % (0.0-0.4); Lymphocytes Percent Auto 31.4 % (20-40); Mean Corpuscular HGB Conc 32.8 g/dl (31.0-35.0); Mean Corpuscular Hemoglobin 25.7 pg (27.0-33.0); Mean Corpuscular Volume 78.3 fL (80.0-98.0); Mean Platelet Volume 9.5 fL (9.4-12.3); Monocytes Absolute Auto 0.7 X10*3/uL (0.1-1.2); Monocytes Percent Auto 7.4 % (2-11); Neutrophils Absolute Auto 5.5 x10*3/uL (2.0-8.3); Neutrophils Percent Auto 58.5 % (45-73); Platelet Count 288 X10*3/uL (160-400); Red Blood Count 4.52 X10*6/uL (4.20-5.50); Red Cell Distribution Width 14.8 % (11.0-16.0); White Blood Count 9.5 X10*3/uL (4.8-10.8)
== END 2022-03-02 14:18 | disposition home or self-care (01) ==
LOC: HO.MDS 14:17
PROVIDERS: Visit Provider Internal Medicine Medical Oncology
DX: D50.9 Iron deficiency anemia, unspecified (principal)
CPT/HCPCS: 36415; 85025; 96365; J2916

== ENCOUNTER 2022-03-09 14:12 | Outpatient (REF) | payer MEDICARE, OTHER, MEDICAID, SELFPAY | END 2022-03-09 14:13 | disposition home or self-care (01) | LOC: HO.MDS 14:12 | PROVIDERS: Visit Provider Internal Medicine Medical Oncology | DX: D50.9 Iron deficiency anemia, unspecified (principal) | CPT/HCPCS: 96365; J2916 ==

== ENCOUNTER 2022-03-17 11:20 | Outpatient (REF) | payer MEDICARE, OTHER, MEDICAID, SELFPAY | END 2022-03-17 11:21 | disposition home or self-care (01) | LOC: HO.MDS 11:20 | PROVIDERS: Visit Provider Internal Medicine Medical Oncology | DX: D50.9 Iron deficiency anemia, unspecified (principal); I48.0 Paroxysmal atrial fibrillation; I45.10 Unspecified right bundle-branch block; I10 Essential (primary) hypertension; I25.10 Atherosclerotic heart disease of native coronary artery without angina pectoris | CPT/HCPCS: 96365; 99212; J2916 ==

== ENCOUNTER 2022-03-22 06:44 | Outpatient (REF) | payer MEDICARE, OTHER, MEDICAID, SELFPAY ==
[2022-03-22 06:58] LABS: MANUAL DIFF FLAG NO
[2022-03-22 07:13] LABS: Basophils Absolute Auto 0.1 X10*3/uL (0.0-0.2); Basophils Percent Auto 0.7 % (0-2); Eosinophils Absolute Auto 0.3 X10*3/uL (0.0-0.4); Eosinophils Percent Auto 3.3 % (0-4); Hematocrit 38.8 % (37.0-47.0); Hemoglobin 12.4 g/dl (12.0-16.0); Imm Gran Abs Auto 0.04 X10*3/uL (0.00-0.03); Imm Gran Pct Auto 0.5 % (0.0-0.4); Lymphocytes Absolute Auto 2.6 X10*3/uL (1.2-4.9); Lymphocytes Percent Auto 29.8 % (20-40); Mean Corpuscular Hemoglobin 25.8 pg (27.0-33.0); Mean Corpuscular Volume 80.7 fL (80.0-98.0); Mean Platelet Volume 9.3 fL (9.4-12.3); Monocytes Absolute Auto 0.7 X10*3/uL (0.1-1.2); Monocytes Percent Auto 7.9 % (2-11); Neutrophils Absolute Auto 5.1 x10*3/uL (2.0-8.3); Neutrophils Percent Auto 57.8 % (45-73); Platelet Count 270 X10*3/uL (160-400); Red Blood Count 4.81 X10*6/uL (4.20-5.50); Red Cell Distribution Width 15.2 % (11.0-16.0); White Blood Count 8.8 X10*3/uL (4.8-10.8)
[2022-03-22 07:38] LABS: Alanine Aminotransferase 13 U/L (0-31); Albumin Level 4.4 g/dL (3.5-5.0); Alkaline Phosphatase 107 U/L (39-117); Anion Gap 17 (12-20); Aspartate Amino Transferase 10 U/L (5-31); Bilirubin Total 0.4 mg/dL (0.0-1.0); Blood Urea Nitrogen 22 mg/dL (9-16); Calcium 9.9 mg/dL (8.4-10.2); Carbon Dioxide 27 mmol/L (22-29); Chloride 103 mmol/L (96-108); Cholesterol 170 mg/dL; Estimated Glomerular Filt Rate 48; Glucose Fasting 113 mg/dL (60-99); HDL Cholesterol 56 mg/dL; LDL Cholesterol Calculated 87 mg/dl; Potassium 4.8 mmol/L (3.3-5.1); Sodium 142 mmol/L (135-145); Total Protein 7.5 g/dL (6.5-8.0); Triglycerides 139 mg/dL
[2022-03-24 12:26] LABS: Calcium (PTHI) 9.7 mg/dL (8.6-10.4); PTHI 43 pg/mL (16-77)
== END 2022-03-22 06:45 | disposition home or self-care (01) ==
LOC: HO.LAB 06:44
PROVIDERS: Internal Medicine; PCP Internal Medicine; Visit Provider Internal Medicine
DX: M81.0 Age-related osteoporosis without current pathological fracture (principal); E11.65 Type 2 diabetes mellitus with hyperglycemia; E78.5 Hyperlipidemia, unspecified; D64.9 Anemia, unspecified
CPT/HCPCS: 36415; 80053; 80061; 83970; 85025

== ENCOUNTER → 2022-04-04 13:23 | Outpatient (BNVA) | payer MEDICARE, OTHER, MEDICAID, SELFPAY | PROVIDERS: PCP Internal Medicine; Visit Provider Internal Medicine | DX: G47.9 Sleep disorder, unspecified (principal); M81.0 Age-related osteoporosis without current pathological fracture | CPT/HCPCS: 96372; 99212 ==

== ENCOUNTER 2022-04-20 13:54 | Outpatient (REF) | payer MEDICARE, OTHER, MEDICAID, SELFPAY ==
--- NOTE | 2022-04-21 16:32 | MHC.AU.MED ---
Medical Clearance for Hearing Instrumentation Date: 04/20/22 Patient Name: Kristin Villagomez Date of : 1940 Primary Care Provider: Referring Provider: SHU Flores We have seen your patient on 04/20/22 and have determined that they are a candidate for amplification (See accompanying report). Specifically, they would benefit from: Hearing aid use in both ears There is a statute that addresses Medical Evaluation Requirements prior to fitting a patient with a hearing aid. According to [place] statute 265 CMR:6.03(1), (a) General. Except as provided in 265 CMR 6.03(1)(b), a certified hearing instrument dispenser shall not sell a hearing aid unless the prospective user has presented to the certified hearing instrument dispenser a written statement signed by a licensed physician that states that the patient's hearing loss has been medically evaluated and the patient may be considered a candidate for a hearing aid. The medical evaluation must have taken place within the preceding six months. Please note: Due to the [place] Statute referenced above, we cannot accept a signature other than that of a licensed physician. VICE PRESIDENT OF HUMAN RESOURCES and PA signatures cannot be accepted. I am in agreement with the above recommendation. There is no medical contraindication for hearing instrumentation. Physician Signature Date Physician Name (Printed)
--- NOTE | 2022-04-21 16:44 | MHC.AU.HAS ---
Hearing Aid Evaluation Date of Visit: 04/20/22 Psych Rn Used: Macedonian- In Person Historical Information: Description of Hearing: Within normal sloping to moderately-severe through 4000 Hz rising to moderate sensorineural hearing loss, bilaterally Hearing Aid Prescription: Based on the individual?s shared listening needs, communication environments, dexterity, desire for connectivity, and personal preferences, the following prescription for amplification has been made: Right ear: Plow Shaker: [employer] Model: SheZoom P70-R Battery Size: Rechargeable Color: Biege 01/H0 Safety Advisor: 1M Type of Dome: Small vented Left ear: Left ear prescription to be same as Right Hearing Aid above: Plan of Care: Patient wishes to purchase hearing aids as prescribed Action Taken/Action Needed: Medical Clearance to be requested from PCP/ENT, Hearing Instrument Fitting to be scheduled when materials arrive Primary Diagnosis: H90.3 Bilateral Sensorineural Hearing Loss Signature: Provider: Noemi Hussein, NEY-A
== END 2022-04-20 13:55 | disposition home or self-care (01) ==
LOC: HO.SH 13:54
PROVIDERS: Visit Provider Nurse Practitioner Family
DX: H90.3 Sensorineural hearing loss, bilateral (principal)
CPT/HCPCS: 92557; 92591

== ENCOUNTER 2022-04-25 07:05 | Outpatient (REF) | payer MEDICARE, OTHER, MEDICAID, SELFPAY ==
[2022-04-25 09:04] LABS: Albumin Level 4.5 g/dL (3.5-5.0); Estimated Glomerular Filt Rate 50
[2022-04-27 12:37] LABS: Calcium (PTHI) 9.2 mg/dL (8.6-10.4); PTHI 95 pg/mL (16-77)
== END 2022-04-25 07:06 | disposition home or self-care (01) ==
LOC: HO.LAB 07:05
PROVIDERS: PCP Internal Medicine; Visit Provider Internal Medicine
DX: M81.0 Age-related osteoporosis without current pathological fracture (principal)
CPT/HCPCS: 36415; 82040; 82565; 83970

== ENCOUNTER 2022-05-26 14:06 | Outpatient (REF) | payer MEDICARE, OTHER, MEDICAID, SELFPAY ==
--- NOTE | ~2022-05-26 | XR_ITS ---
EXAMINATION: XR CHEST CLINICAL INFORMATION: Acute bronchitis COMPARISON: None TECHNIQUE: 2 views of the chest were obtained. FINDINGS: There is opacity seen anteriorly on the lateral view at the lung base, unclear if it is the right middle lobe or lingula. No pleural effusion or pneumothorax. Calcified aortic arch. Normal heart size. Degenerative changes of the shoulders and spine with right humeral head suture anchors. XR/XR chest 2V IMPRESSION: Opacity seen anteriorly on the lateral view, which could reflect pneumonia or pneumonitis in the right middle lobe or lingula. The report will be called to the ordering clinician by a [facility] Physician Icing Coater.
[2022-05-26 14:53] LABS: Influenza A PCR NEGATIVE (Negative); Influenza B PCR NEGATIVE (Negative); Resp Syncy Virus RNA Qual PCR POSITIVE (Negative); SARS COV2 PCR INHOUSE NEGATIVE (Negative)
== END 2022-05-26 14:07 | disposition home or self-care (01) ==
LOC: HO.HMGCX 14:06
PROVIDERS: PCP Internal Medicine; Visit Provider Nurse Practitioner Family
DX: J02.9 Acute pharyngitis, unspecified (principal); Z20.822 Contact with and (suspected) exposure to COVID-19
CPT/HCPCS: 0241U; 71046

== ENCOUNTER → 2022-06-07 12:16 | Outpatient (BNVA) | payer MEDICARE, OTHER, MEDICAID, SELFPAY | PROVIDERS: PCP Internal Medicine; Visit Provider Internal Medicine | DX: K62.5 Hemorrhage of anus and rectum (principal); I48.0 Paroxysmal atrial fibrillation; D64.9 Anemia, unspecified; Z80.0 Family history of malignant neoplasm of digestive organs | CPT/HCPCS: 99202 ==

== ENCOUNTER → 2022-06-14 13:54 | Outpatient (REF) | payer MEDICARE, OTHER, MEDICAID, SELFPAY ==
--- NOTE | 2022-06-14 13:58 | CA_ITS ---
Transthoracic Echocardiogram Patient (Last, First, Middle): Kristin Valdivia T Gender: Female Date of : 1940 Age: 81 Procedure Date: 06/14/2022 Procedure Type: Transthoracic Echocardiogram Location: OP Height: 160.02 cm Weight: 60.78 kg BSA: 1.63 m2 Heart Rate: bpm BP: 150 / 74 mmHg Weatherization Director: LUIS Referring MD: Helen Bai CHARGE MASTER COORDINATORMichael Symptoms: I48.0 - Paroxysmal atrial fibrillation Study Quality: Adequate ECG Rhythm: Sinus Conclusions: - The left ventricular systolic function is normal. The visually estimated ejection fraction is between 55-60%. - There is mild calcification of the aortic valve. - There is mild mitral annular calcification. - There is mild to moderate tricuspid valve regurgitation. - Mild pulmonary hypertension is present. Findings Left Ventricle Normal left ventricular cavity size. There is normal left ventricular wall thickness. The left ventricular systolic function is normal. The visually estimated ejection fraction is between 55-60%. There is no evidence of regional wall motion abnormalities. LV peak GLS -19.7%. Right Ventricle Normal right ventricular cavity size and systolic function. Atria Both atria are normal in size. Aortic Valve There is a normal trileaflet aortic valve. There is mild calcification of the aortic valve. There is no aortic valve stenosis. There is no aortic valve regurgitation. Mitral Valve The mitral valve appears normal. There is mild mitral annular calcification. There is trace mitral valve regurgitation. There is no mitral valve stenosis. Pulmonic Valve The pulmonic valve is likely normal. Tricuspid Valve Normal tricuspid valve structure. There is mild to moderate tricuspid valve regurgitation. Mild pulmonary hypertension is present. Great Vessels The asc aorta is normal in size. Venous The inferior vena cava is normal in size and collapses greater than 50% with inspiration. Pericardium/Pleural There is no evidence of pericardial effusion. Prior Study Comparison No prior study available for comparison. Measurements 2D Linear Measurements IVSd: 0.90 0.6-0.9/0.6-1.0 cm LVIDd: 4.47 3.9-5.3/4.2-5.9 cm LVIDd Index: 2.74 2.4-3.2/2.2-3.1 cm/m2 LVIDs: 2.63 2.0-3.6 cm LVPWd: 0.98 0.7-1.1 cm LA Diam: 3.40 2.7-3.8/3.0-4.0 cm LAIDs Index: 2.09 1.5-2.3 cm/m2 LV Mass: 173.53 67-162/88-224 g LV Mass Index: 106.46 43-95/49-115 g/m2 LVOT Diam: 2.00 3.0+(-)1.3 cm 2D Systolic Function EF 4C: 57.10 >55% Mitral Valve MV VTI: 0.26 MV Pk [place]: 1.13 MV Mn [place]: 0.85 MV Pk Grad: 5.00 MV Mn Grad: 3.00 MV Pk E: 0.91 MV PK A: 1.10 MV Decel Time: 183.00 E/A: 0.80 E'Lateral: 8.49 E'Medial: 6.64 E/E' Med: 13.80 E/E' Lat: 10.80 PHT: 54.00 MVA PHT: 4.07 MVA Continuity: 2.83 Decel Colbert: 4.98 Aortic Valve AoV Pk [place]: 1.48 AoV Mn [place]: 1.13 AoV VTI: 0.33 AoV Pk Grad: 9.00 Aov Mn Grad: 6.00 VINNY Cont.VTI: 2.16 LVOT LVOT Pk [place]: 1.07 LVOT Mn [place]: 0.68 LVOT VTI: 0.23 LVOT Pk Grad: 5.00 LVOT Mn Grad: 2.00 LVOT Diam: 2.00 LVOT Area: 3.14 Diastolic Function MV Pk E: 0.91 MV Pk A: 1.10 E/A: 0.80 E'Medial: 6.64 E/E' Med: 13.80 E' Laterial: 8.49 E/E' Lat: 10.80 Right Ventricle TAPSE (mm): 24.40 TVS' [place]: 13.20 Tricuspid Valve TR Pk [place]: 2.99 TR Pk Grad: 36.00 RA Press: 3.00 RVSP: 39.00 Great Vessels Aorta Sinus of Valsalva: 2.67 2.0-3.[address] Ridge: 2.14 1.7-3.4 cm Ao Asc: 2.60 2.1-3.4 cm Updated in Other Vendor System with Status of Final Donte Mccarthy MD electronically signed on 06/16/2022 12:46:58 PM with status of Final
== END ==
LOC: HO.CARD 13:54
PROVIDERS: PCP Internal Medicine; Visit Provider Nurse Practitioner Family
DX: I45.10 Unspecified right bundle-branch block (principal); I48.0 Paroxysmal atrial fibrillation
CPT/HCPCS: 93306; 93356

== ENCOUNTER 2022-06-20 09:42 | Outpatient (REF) | payer MEDICARE, OTHER, MEDICAID, SELFPAY ==
[2022-06-20 12:06] LABS: Alanine Aminotransferase 21 U/L (0-31); Albumin Level 4.4 g/dL (3.5-5.0); Alkaline Phosphatase 110 U/L (39-117); Anion Gap 16 (12-20); Aspartate Amino Transferase 12 U/L (5-31); Bilirubin Total 0.5 mg/dL (0.0-1.0); Blood Urea Nitrogen 24 mg/dL (9-16); Calcium 9.6 mg/dL (8.4-10.2); Carbon Dioxide 26 mmol/L (22-29); Chloride 102 mmol/L (96-108); Cholesterol 165 mg/dL; Estimated Glomerular Filt Rate 40; Glucose Fasting 161 mg/dL (60-99); HDL Cholesterol 61 mg/dL; LDL Cholesterol Calculated 90 mg/dl; Potassium 4.9 mmol/L (3.3-5.1); Sodium 139 mmol/L (135-145); Total Protein 7.6 g/dL (6.5-8.0); Triglycerides 73 mg/dL
[2022-06-20 12:12] LABS: Vitamin D 25-OH Total 35.4 ng/mL (>30)
[2022-06-20 12:19] LABS: Creatinine Urine 125.22 mg/dL
== END 2022-06-20 09:43 | disposition home or self-care (01) ==
LOC: HO.LAB 09:42
PROVIDERS: PCP Internal Medicine; Visit Provider Internal Medicine
DX: E55.9 Vitamin D deficiency, unspecified (principal); E78.5 Hyperlipidemia, unspecified; E11.65 Type 2 diabetes mellitus with hyperglycemia
CPT/HCPCS: 36415; 80053; 80061; 82043; 82306

== ENCOUNTER 2022-10-03 15:05 | Outpatient (REF) | payer MEDICARE, OTHER, MEDICAID, SELFPAY ==
--- NOTE | ~2022-10-03 | MM_ITS ---
EXAMINATION: MM SCREENING DIGITAL BREAST TOMOSYNTHESIS, BILATERAL CLINICAL INFORMATION: Screening. Asymptomatic. COMPARISON: Mammography: September 04, 2021 and July 01, 2019 TECHNIQUE: Digital breast tomosynthesis is performed in both the craniocaudal and mediolateral oblique views along with computer-aided detection (CAD). Synthesized 2D images are generated from the tomosynthesis. FINDINGS: The breasts are heterogeneously dense, which may obscure small masses (ACR BI-RADS breast composition Category c). There are no new significant masses, abnormal calcifications, or other abnormalities. There are 2 stable circumscribed densities retroareolar region of the right breast. MM/MM tomosynthesis screening BI IMPRESSION: No significant changes from prior exam. ASSESSMENT: BI-RADS 2: Benign RECOMMENDATION: Routine annual mammography screening. This patient's information was entered into a reminder system with a target due date for their next mammogram.
[2022-10-03 16:50] LABS: Alanine Aminotransferase 10 U/L (0-31); Albumin Level 4.4 g/dL (3.5-5.0); Alkaline Phosphatase 99 U/L (39-117); Anion Gap 18 (12-20); Aspartate Amino Transferase 9 U/L (5-31); Bilirubin Total 0.4 mg/dL (0.0-1.0); Blood Urea Nitrogen 26 mg/dL (9-16); Calcium 10.1 mg/dL (8.4-10.2); Carbon Dioxide 28 mmol/L (22-29); Chloride 102 mmol/L (96-108); Estimated Glomerular Filt Rate 45; Glucose Random 123 mg/dL (60-115); Phosphorus 3.4 mg/dL (2.7-4.5); Potassium 4.6 mmol/L (3.3-5.1); Sodium 143 mmol/L (135-145); Total Protein 7.4 g/dL (6.5-8.0)
[2022-10-03 17:07] LABS: Vitamin D 25-OH Total 33.3 ng/mL (>30)
[2022-10-04 11:48] LABS: Calcium (PTHI) 10.1 mg/dL (8.6-10.4); PTHI 44 pg/mL (16-77)
[2022-10-06 19:27] LABS: Alkaline Phosphatase Bone 9.8 mcg/L (see note)
[2022-10-10 16:39] LABS: N-Telopeptide 19 (see note); NTXCreaRU 54 mg/dL (20-275)
== END 2022-10-03 15:06 | disposition home or self-care (01) ==
LOC: HO.MAMMO 15:05
PROVIDERS: Absent Provider Internal Medicine; PCP Internal Medicine; Visit Provider Internal Medicine
DX: Z12.31 Encounter for screening mammogram for malignant neoplasm of breast (principal); M81.0 Age-related osteoporosis without current pathological fracture; E55.9 Vitamin D deficiency, unspecified
CPT/HCPCS: 36415; 77063; 77067; 80053; 82306; 82523; 83970; 84075; 84100

== ENCOUNTER → 2022-10-12 13:27 | Outpatient (BNVA) | payer MEDICARE, OTHER, MEDICAID, SELFPAY | PROVIDERS: PCP Internal Medicine; Visit Provider Internal Medicine | DX: M81.0 Age-related osteoporosis without current pathological fracture (principal); E55.9 Vitamin D deficiency, unspecified | CPT/HCPCS: 96372; 99212 ==

== ENCOUNTER → 2022-10-13 13:50 | Outpatient (BNVA) | payer MEDICARE, OTHER, MEDICAID, SELFPAY | PROVIDERS: PCP Internal Medicine; Referring Provider Internal Medicine; Visit Provider Internal Medicine Cardiovascular Disease | DX: I48.0 Paroxysmal atrial fibrillation (principal); I10 Essential (primary) hypertension | CPT/HCPCS: 93005; 99212 ==

== ENCOUNTER 2022-10-19 06:52 | Outpatient (REF) | payer MEDICARE, OTHER, SELFPAY ==
[2022-10-19 08:25] LABS: Creatinine Urine 43.29 mg/dL; Microalbum/Creatinine Ratio Ur 639.8 ug/mg cr
[2022-10-19 08:27] LABS: Alanine Aminotransferase 11 U/L (0-31); Albumin Level 4.3 g/dL (3.5-5.0); Alkaline Phosphatase 97 U/L (39-117); Anion Gap 13 (12-20); Aspartate Amino Transferase 11 U/L (5-31); Bilirubin Total 0.5 mg/dL (0.0-1.0); Blood Urea Nitrogen 21 mg/dL (9-16); Calcium 9.5 mg/dL (8.4-10.2); Carbon Dioxide 31 mmol/L (22-29); Chloride 105 mmol/L (96-108); Cholesterol 183 mg/dL; Estimated Glomerular Filt Rate 51; Glucose Fasting 104 mg/dL (60-99); HDL Cholesterol 60 mg/dL; LDL Cholesterol Calculated 101 mg/dl; Potassium 5.2 mmol/L (3.3-5.1); Sodium 144 mmol/L (135-145); Total Protein 7.1 g/dL (6.5-8.0); Triglycerides 110 mg/dL
[2022-10-21 15:34] LABS: Calcium (PTHI) 9.5 mg/dL (8.6-10.4); PTHI 43 pg/mL (16-77)
== END 2022-10-19 06:53 | disposition home or self-care (01) ==
LOC: HO.LAB 06:52
PROVIDERS: Internal Medicine; PCP Internal Medicine; Visit Provider Internal Medicine
DX: E11.22 Type 2 diabetes mellitus with diabetic chronic kidney disease (principal); N18.30 Chronic kidney disease, stage 3 unspecified; M81.0 Age-related osteoporosis without current pathological fracture; E55.9 Vitamin D deficiency, unspecified; E78.5 Hyperlipidemia, unspecified
CPT/HCPCS: 36415; 80053; 80061; 82043; 82306; 83970

== ENCOUNTER 2023-01-30 15:18 | Outpatient (AMB) | payer MEDICARE, OTHER, MEDICAID, SELFPAY ==
--- NOTE | 2023-01-30 15:30 | MHC.OFFVIS ---
Intake Vital Signs 01/30/23 15:31 Height 5 ft 3 in Weight 134 lb 7.712 oz BMI 23.8 BP 120/60 Blood Pressure Location Lt brachial Position Sitting Pulse 72 Intake Visit Reasons: 3 month follow up Intake Note: 3 mo follow up. pt states she sometimes has palpitations. Pt states it happens when lying down. Pt states she also gets loss of balance Knife Finisher Required: Yes Knife Finisher Language: Validation Intern Name: [id number] Marissa ma Information Interpreted: clinical only Allergies No Known Allergies Allergy (Verified 01/30/23 15:40) Medication List - Last Reconciled 01/30/23 by Sabas Mcduffie MD [adult diapers As directed] albuterol sulfate 90 mcg/actuation 2 puffs inhalation Q4-6H PRN 30 days amlodipine 5 mg PO DAILY 90 days apixaban (Eliquis) 5 mg PO BID 90 days benzonatate 100 mg PO TID PRN blood sugar diagnostic TEST 3 TIMES DAILY calcium carbonate 600 mg PO DAILY 30 days cholecalciferol (vitamin D3) 25 mcg PO DAILY 90 days commode (bedside commode) As directed denosumab (Prolia) 60 mg subcut [id number] dexamethasone 4 mg PO DAILY dulaglutide (Trulicity) 1.5 mg (0.5 mL) subcut QWEEK 90 days fluticasone propionate 50 mcg/actuation 1 spray intranasal DAILY gabapentin 100 mg PO DAILY 90 days glipizide 5 mg PO DAILY guaifenesin ER 600 mg PO BID isosorbide mononitrate ER 30 mg PO DAILY 90 days levalbuterol tartrate 45 mcg/actuation (Xopenex HFA) 2 puffs inhalation Q4-6H PRN magnesium oxide 400 mg PO DAILY 90 days metformin 1,000 mg PO BID 90 days metoprolol succinate ER 100 mg PO DAILY 90 days omeprazole 40 mg PO DAILY omeprazole 20 mg PO DAILY 90 days rosuvastatin 10 mg PO DAILY 90 days tizanidine 2 mg PO Q8H PRN underpads (Certainty Underpads) Use 1 to 2 times a day HPI HPI Comments History of Present Illness Details Pleasant 82-year-old female with history of paroxysmal atrial fibrillation and hypertension here for follow-up. She recently got admitted to [facility] with pneumonia. She was in the hospital for couple days and then went home and started complaining of some chest discomfort and was brought back to the emergency department and was noticed to be in AFib with RVR. She was treated with rate control and appears she did well after that and reverted back to sinus rhythm. In the office she is in sinus rhythm. She is otherwise not complaining of any other issues. No chest discomfort shortness of breath. She had mild chest discomfort when she went in the emergency department. Taking her medications regularly. Blood pressure control is optimal. 01/30/23: She is here for follow-up. She has been doing well. No chest discomfort shortness of breath. No palpitations. She is taking medications regularly. On apixaban for anticoagulation. She is on Toprol XL 100 mg daily. 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 [facility] Medical History Abnormal EKG Abnormal SPEP Age related osteoporosis Anemia Atrial fibrillation with rapid ventricular response Coronary artery disease GERD (gastroesophageal reflux disease) Hyperlipidemia LDL goal <100 Hypertension Hypomagnesemia Left shoulder pain Left shoulder pain Microalbuminuria Neuropathy JONNY (obstructive sleep apnea) Osteoporosis Physical exam Screening for osteoporosis Type 2 diabetes mellitus with hyperglycemia Urinary incontinence Vitamin D deficiency Surgical History History of surgery on arm Hx of breast biopsy Hx of dilation and curettage Family History Mother Diabetes mellitus Father No problems noted. Sister Lymphoma Breast cancer Brother Colon cancer Social History Household Members: Family Housing: House Are you a primary day care teacher to a significant other at home: No Do you presently have visiting nurse or other home services: Yes (insurance nurse) Alcohol intake: never Patient Tobacco Use Status: Never used Tobacco e-Cigarette/Vaping Use: Never Used Second Hand Smoke Exposure: No service: No Current occupational status: disabled Cognitive needs: No Hearing needs: No Vision needs: Yes Review of Systems Const Denies chills, Denies fatigue, Denies fever(s), Denies frequent falls, Denies weight gain and Denies weight loss Card Denies chest pain, Denies leg edema, Denies lightheadedness, Denies dyspnea, Denies dyspnea on exertion, Denies orthopnea and Denies other (loss of consciousness) Resp Denies cough, Denies dyspnea and Denies dyspnea on exertion GI Denies hematochezia and Denies change in stool character Musc Denies muscle weakness Neuro Denies frequent falls Endo Denies fatigue Physical Exam Vital Signs: BMI result Body Mass Index 23.8 GENERAL APPEARANCE: in no acute distress, pleasant. NECK: no carotid bruit, no jugular venous distention. SKIN: no suspicious lesions, warm and dry. HEART: no murmurs, regular rate and rhythm. LUNGS: clear to auscultation bilaterally. ABDOMEN: soft, nontender. EXTREMITIES: no edema. PERIPHERAL PULSES: equal. NEUROLOGIC: No gross deficits, AAO X 3 Assessment & Plan Assessment & Plan (1) Hypertension: Code(s): I10 - Essential (primary) hypertension Qualifiers: Hypertension type: essential hypertension Qualified Code(s): I10 - Essential (primary) hypertension (2) PAF (paroxysmal atrial fibrillation): Code(s): I48.0 - Paroxysmal atrial fibrillation Plan Pleasant 82-year-old female who is here for follow-up. She has history of paroxysmal atrial fibrillation the setting of pneumonia. She had chest discomfort when she had AFib with RVR. With chest discomfort improved after AFib converted to sinus rhythm. She has not had any further chest discomfort on follow-up. She is in sinus rhythm. Taking Toprol XL and apixaban at this point. Blood pressure control is good. Clinically stable. She was advised to reach out to us if she developed any chest discomfort, palpitations or shortness of breath. Thank you for allowing me to participate in the care of your patient. Please feel free to contact me if you have any questions. Coding Level of Care Code Est Pt Level 4 (45096) Diagnoses Hypertension I10 Hypertension type: essential hypertension PAF (paroxysmal atrial fibrillation) I48.0
[2023-01-30 15:31] VITALS: BP 120/60; PULSE 72; BMI 23.8
== END 2023-01-30 16:06 | disposition home or self-care (01) ==
PROVIDERS: Visit Provider Internal Medicine Cardiovascular Disease
DX: I10 Essential (primary) hypertension (principal); I48.0 Paroxysmal atrial fibrillation
CPT/HCPCS: 99214

== ENCOUNTER → 2023-01-30 15:18 | Outpatient (BNVA) | payer MEDICARE, OTHER, MEDICAID, SELFPAY | PROVIDERS: Visit Provider Internal Medicine Cardiovascular Disease | DX: I48.0 Paroxysmal atrial fibrillation (principal); I25.10 Atherosclerotic heart disease of native coronary artery without angina pectoris; I10 Essential (primary) hypertension; E87.5 Hyperkalemia; Z79.01 Long term (current) use of anticoagulants; Z79.899 Other long term (current) drug therapy | CPT/HCPCS: 99212 ==

== ENCOUNTER 2023-02-15 07:30 | Outpatient (REF) | payer MEDICARE, OTHER, MEDICAID, SELFPAY ==
[2023-02-15 08:57] LABS: Albumin Level 4.2 g/dL (3.5-5.0); Calcium 9.2 mg/dL (8.4-10.2); Potassium 4.4 mmol/L (3.3-5.1)
== END 2023-02-15 07:31 | disposition home or self-care (01) ==
LOC: HO.LAB 07:30
PROVIDERS: Internal Medicine; PCP Internal Medicine; Visit Provider Internal Medicine
DX: E87.5 Hyperkalemia (principal); M81.0 Age-related osteoporosis without current pathological fracture
CPT/HCPCS: 36415; 82040; 82310; 84132

== ENCOUNTER 2023-02-22 15:52 | Outpatient (AMB) | payer MEDICARE, OTHER, SELFPAY ==
[2023-02-22 15:55] VITALS: BP 120/82; BMI 24.0
--- NOTE | 2023-02-22 15:55 | A.OFFPC_ITS ---
Vital Signs 02/22/23 15:55 Height 5 ft 3 in Weight 135 lb 9.349 oz BMI 24.0 BP 120/82 Blood Pressure Location Lt brachial Position Sitting Intake Visit Reasons: dm Intake Note: Patient here for a follow up DM Airport Screener Required: No Accompanied by: Daughter Allergies No Known Allergies Allergy (Verified 02/22/23 16:33) Medication List - Last Reconciled 02/22/23 by Pam Montoya MD [adult diapers As directed] albuterol sulfate 90 mcg/actuation 2 puffs inhalation Q4-6H PRN 30 days amlodipine 5 mg PO DAILY 90 days apixaban (Eliquis) 5 mg PO BID 90 days benzonatate 100 mg PO TID PRN blood sugar diagnostic TEST 3 TIMES DAILY calcium carbonate 600 mg PO DAILY 30 days cholecalciferol (vitamin D3) 25 mcg PO DAILY 90 days commode (bedside commode) As directed denosumab (Prolia) 60 mg subcut [id number] dexamethasone 4 mg PO DAILY dulaglutide (Trulicity) 1.5 mg (0.5 mL) subcut QWEEK 90 days fluticasone propionate 50 mcg/actuation 1 spray intranasal DAILY gabapentin 100 mg PO DAILY 90 days glipizide 5 mg PO DAILY guaifenesin ER 600 mg PO BID isosorbide mononitrate ER 30 mg PO DAILY 90 days levalbuterol tartrate 45 mcg/actuation (Xopenex HFA) 2 puffs inhalation Q4-6H PRN magnesium oxide 400 mg PO DAILY 90 days metformin 1,000 mg PO BID 90 days metoprolol succinate ER 100 mg PO DAILY 90 days omeprazole 40 mg PO DAILY omeprazole 20 mg PO DAILY 90 days rosuvastatin 10 mg PO DAILY 90 days tizanidine 2 mg PO Q8H PRN underpads (Certainty Underpads) Use 1 to 2 times a day Tobacco use date assessed: 12/07/22 Fall risk assessment: No Falls in past year Last assessed Fall Risk: 02/22/23 Dental Screening Dental Screen Date: 02/22/23 Did you have a dental visit in the last 12 months?: Yes Did you have a dental problem in the last 6 months where you did not have access to dental care?: No Was dental information given to patient?: Patient has dentist HPI HPI Comments History of Present Illness Details This is an 82-year-old female with diabetes mellitus type 2 with hyperglycemia, hypertension, paroxysmal atrial fibrillation and hyperlipidemia that comes today accompanied by daughter which is her healthcare proxy for follow-up on her conditions. A1c within goal. Blood pressure stable. On chronic anticoagulation for atrial fibrillation and denies any palpitations. Last LDL was not on goal and rosuvastatin was increased. Will repeat lipid panel for the next appointment. Doing well. [facility] Medical History Abnormal EKG Abnormal SPEP Age related osteoporosis Anemia Atrial fibrillation with rapid ventricular response Coronary artery disease GERD (gastroesophageal reflux disease) Hyperlipidemia LDL goal <100 Hypertension Hypomagnesemia Left shoulder pain Left shoulder pain Microalbuminuria Neuropathy JONNY (obstructive sleep apnea) Osteoporosis Physical exam Screening for osteoporosis Type 2 diabetes mellitus with hyperglycemia Urinary incontinence Vitamin D deficiency Surgical History History of surgery on arm Hx of breast biopsy Hx of dilation and curettage Family History Mother Diabetes mellitus Father No problems noted. Sister Lymphoma Breast cancer Brother Colon cancer Social History Household Members: Family Housing: House Are you a primary child care center assistant director to a significant other at home: No Do you presently have visiting nurse or other home services: Yes (insurance nurse) Alcohol intake: never Patient Tobacco Use Status: Never used Tobacco e-Cigarette/Vaping Use: Never Used Second Hand Smoke Exposure: No service: No Current occupational status: disabled Cognitive needs: No Hearing needs: No Vision needs: Yes Questionnaire Thrive Questionnaire Date Thrive assessed: 08/31/22 LINDSAY-7 AMB Questionnaire LINDSAY-7 Date LINDSAY - 7 assessed: 08/31/22 Source: Developed by Drs. Jayro Wan, Tara Gutierrez, Bryant Reno and colleagues, with an educational adore from [employer]. Review of Systems Const All systems reviewed & are unremarkable except as noted in HPI and below Eyes Reports no additional complaints, Denies change in vision and Denies other visual disturbances Card Denies chest pain at rest, Denies chest pain with activity, Denies edema, Denies irregular heart rhythm, Denies claudication, Denies dyspnea, Denies dyspnea on exertion, Denies orthopnea, Denies paroxysmal nocturnal dyspnea and Denies slow heart rate Resp Denies cough, Denies dyspnea and Denies dyspnea on exertion GI Denies abdominal pain, Denies change in bowel habits, Denies excessive flatus, Denies nausea and Denies vomiting Denies urinary incontinence, Denies urinary hesitancy and Denies urinary urgency Musc Denies abnormal gait, Denies atrophy, Denies deformity and Denies limited range of motion Skin/Breast Denies bleeding lesions, Denies changing lesions and Denies rash Neuro Denies abnormal gait and Denies lack of coordination Physical exam (Primary Care) Vital Signs: Last Vital Signs BP 120/82 02/22/23 15:55 BMI result Body Mass Index 24.0 Tobacco/Smoking Status: Tobacco use Status Tobacco use date assessed 12/07/22 02/22/23 16:07 Patient Tobacco Use Status Never used Tobacco 02/22/23 16:07 e-Cigarette/Vaping Use Never Used 02/22/23 16:07 Thrive Assessment: Date of Thrive Assessment Date Thrive assessed 08/31/22 02/22/23 16:07 Eyes General: appearance normal, both eyes and all related structures Eyelids: Yes eyelids normal Conjunctivae: conjunctivae normal Neck Neck: Yes normal visual inspection and Yes supple Resp Effort & Inspection: normal respiratory effort Auscultation: clear to auscultation bilaterally Cardio Jugular venous distension: no JVD Rate: regular rate Rhythm: regular rhythm Heart sounds: S1 normal heart sound present and S2 normal heart sound present Extrem General: Yes full ROM Office Procedures Advance Care Planning Advance Care Planning discussion: Completed/Scanned Date of discussion: 02/22/23 Who was present: Daughter, patient, infertility medical assistant and me Forms completed: Health Care Proxy Time spent: 1-15 minutes, on File Actual minutes spent: 2 Results AMB Hemoglobin A1c AMB Hemoglobin A1c 6.9 % Last Edit by JIM Mcneill on 02/22/23 16:1 1 Results Reviewed Results Reviewed: Laboratory Last Values Hgb A1c (Clinic) 6.9 % (4.0-6.0) H 02/22/23 16:08 Assessment and Plan Assessment & Plan (1) PAF (paroxysmal atrial fibrillation): Code(s): I48.0 - Paroxysmal atrial fibrillation Plan: Continue metoprolol and chronic anticoagulation. The goal is heart rate control. (2) Hypertension: Code(s): I10 - Essential (primary) hypertension Qualifiers: Hypertension type: essential hypertension Qualified Code(s): I10 - Essential (primary) hypertension Plan: Continue amlodipine. Blood pressure goal is equal or less than 130/80. (3) Hyperlipidemia LDL goal <70: Code(s): E78.5 - Hyperlipidemia, unspecified Plan: Continue rosuvastatin 10 mg once a day. Repeat lipid panel. LDL goal is less than 70. (4) Type 2 diabetes mellitus with hyperglycemia: Code(s): E11.65 - Type 2 diabetes mellitus with hyperglycemia Qualifiers: Diabetes mellitus bed bug exterminator insulin use: without bed bug exterminator use Qualified Code(s): E11.65 - Type 2 diabetes mellitus with hyperglycemia Plan: Continue Trulicity, glipizide and metformin. A1c goal is equal or less than 7% Orders: Orders Comprehensive [place]. Panel Fast 4 Months E78.5 - Hyperlipidemia, unspecified Lipid Panel 4 Months E78.5 - Hyperlipidemia, unspecified Magnesium 4 Months E83.42 - Hypomagnesemia Microalbumin, Random (w Creat) 4 Months E11.9 - Type 2 diabetes mellitus without complications AMB Hemoglobin A1c Today E11.65 - Type 2 diabetes mellitus with hyperglycemia Coding Level of Care Code Est Pt Level 4 (25846) Diagnoses PAF (paroxysmal atrial fibrillation) I48.0 Hypertension I10 Hypertension type: essential hypertension Hyperlipidemia LDL goal <70 E78.5 Type 2 diabetes mellitus with hyperglycemia E11.65 Diabetes mellitus correction insulin use: without bed bug exterminator use CPT Codes Advance Care Planning - Time spent: 1-15 minutes, on File ([id number]) Time Spent (min) 25
== END 2023-02-22 16:47 | disposition home or self-care (01) ==
PROVIDERS: Visit Provider Internal Medicine
DX: I48.0 Paroxysmal atrial fibrillation (principal); I10 Essential (primary) hypertension; E78.5 Hyperlipidemia, unspecified; E11.65 Type 2 diabetes mellitus with hyperglycemia; Z00.00 Encounter for general adult medical examination without abnormal findings
CPT/HCPCS: 1123F; 83036; 99214

== ENCOUNTER 2023-04-10 16:01 | Outpatient (REF) | payer MEDICARE, OTHER, MEDICAID, SELFPAY ==
[2023-04-10 17:26] LABS: Alanine Aminotransferase 10 U/L (0-31); Albumin Level 4.2 g/dL (3.5-5.0); Alkaline Phosphatase 71 U/L (39-117); Anion Gap 11 (12-20); Aspartate Amino Transferase 9 U/L (5-31); Bilirubin Total 0.3 mg/dL (0.0-1.0); Blood Urea Nitrogen 18 mg/dL (9-16); Calcium 9.5 mg/dL (8.4-10.2); Carbon Dioxide 29 mmol/L (22-29); Chloride 104 mmol/L (96-108); Estimated Glomerular Filt Rate 43; Glucose Random 147 mg/dL (60-115); Phosphorus 2.3 mg/dL (2.7-4.5); Potassium 4.3 mmol/L (3.3-5.1); Sodium 140 mmol/L (135-145); Total Protein 7.1 g/dL (6.5-8.0)
[2023-04-10 17:46] LABS: Vitamin D 25-OH Total 50.7 ng/mL (>30)
[2023-04-11 16:14] LABS: Calcium (PTHI) 9.3 mg/dL (8.6-10.4); PTHI 28 pg/mL (16-77)
== END 2023-04-10 16:02 | disposition home or self-care (01) ==
LOC: HO.LAB 16:01
PROVIDERS: PCP Internal Medicine; Visit Provider Internal Medicine
DX: M81.0 Age-related osteoporosis without current pathological fracture (principal); E55.9 Vitamin D deficiency, unspecified
CPT/HCPCS: 36415; 80053; 82306; 83970; 84100

== ENCOUNTER 2023-04-11 10:00 | Outpatient (REF) | payer MEDICARE, OTHER, MEDICAID, SELFPAY ==
[2023-04-18 07:03] LABS: N-Telopeptide 20 (see note); NTXCreaRU 31 mg/dL (20-275)
== END 2023-04-11 10:01 | disposition home or self-care (01) ==
LOC: HO.LNP 10:00
PROVIDERS: Visit Provider Internal Medicine
DX: M81.0 Age-related osteoporosis without current pathological fracture (principal)
CPT/HCPCS: 82523

== ENCOUNTER 2023-04-21 15:39 | Outpatient (AMB) | payer MEDICARE, OTHER, MEDICAID, SELFPAY ==
--- NOTE | 2023-04-21 15:36 | AM.OFFVISNUR ---
Intake Intake Visit Reasons: Prolia Allergies No Known Allergies Allergy (Verified 04/10/23 15:38) Office Meds Prolia 60 mg/mL subcutaneous syringe Performing Provider: Jayro Devine MD Performing Location: [facility] Endocrinology Administered by: Jimmy Hutchinson RN on 04/21/23 15:36 Dose Route Admin Location Dispensed Lot Number Expiration Date NDC Swing Saw Operator 60 mg subcut L arm 1 mL [id number] 09/20/25 AMGEN Coding Assessment & Plan Assessment & Plan Orders: Orders AMB Denosumab Injection Patient Supplied Today M81.0 - Age-related osteoporosis without current pathological fracture
== END 2023-04-21 15:42 | disposition home or self-care (01) ==
LOC: HO.ENCR 15:40
PROVIDERS: PCP Internal Medicine; Visit Provider Internal Medicine Endocrinology, Diabetes & Metabolism
DX: M81.0 Age-related osteoporosis without current pathological fracture (principal)

== ENCOUNTER → 2023-04-21 15:39 | Outpatient (BNVA) | payer MEDICARE, OTHER, MEDICAID, SELFPAY | PROVIDERS: PCP Internal Medicine; Visit Provider Internal Medicine Endocrinology, Diabetes & Metabolism | DX: M81.0 Age-related osteoporosis without current pathological fracture (principal) | CPT/HCPCS: 96372; J0897 ==

== ENCOUNTER 2023-06-07 15:00 | Outpatient (AMB) | payer MEDICARE, OTHER, MEDICAID, SELFPAY ==
[2023-06-07 15:14] VITALS: BP 120/72; PULSE 85; BMI 24.2
--- NOTE | 2023-06-07 15:14 | MHC.OFFVIS ---
Intake Vital Signs 06/07/23 15:14 Height 5 ft 3 in Weight 136 lb 10.986 oz BMI 24.2 BP 120/72 Blood Pressure Location Lt brachial Position Sitting Pulse 85 Intake Visit Reasons: 4 month follow up Intake Note: 4 month follow-up feeling good Instructional Resource Teacher Required: Yes Instructional Resource Teacher Name: Theodore ma Housekeeping Manager: Housekeeping Manager Present Accompanied by: Daughter Allergies No Known Allergies Allergy (Verified 04/10/23 15:38) Medication List - Last Reconciled 06/07/23 by Sabas Mcduffie MD [adult diapers As directed] albuterol sulfate 90 mcg/actuation 2 puffs inhalation Q4-6H PRN 30 days amlodipine 5 mg PO DAILY 90 days apixaban (Eliquis) 5 mg PO BID 90 days blood sugar diagnostic TEST 3 TIMES DAILY cholecalciferol (vitamin D3) 25 mcg PO DAILY 90 days commode (bedside commode) As directed denosumab (Prolia) 60 mg subcut [id number] dulaglutide (Trulicity) 1.5 mg (0.5 mL) subcut QWEEK 90 days gabapentin 100 mg PO DAILY 90 days isosorbide mononitrate ER 30 mg PO DAILY 90 days levalbuterol tartrate 45 mcg/actuation (Xopenex HFA) 2 puffs inhalation Q4-6H PRN magnesium oxide 400 mg PO DAILY 90 days metformin 1,000 mg PO BID 90 days metoprolol succinate ER 100 mg PO DAILY 90 days omeprazole 20 mg PO DAILY 90 days rosuvastatin 10 mg PO DAILY 90 days tizanidine 2 mg PO Q8H PRN underpads (Certainty Underpads) Use 1 to 2 times a day HPI HPI Comments History of Present Illness Details Pleasant 82-year-old female with history of paroxysmal atrial fibrillation and hypertension here for follow-up. She recently got admitted to [facility] with pneumonia. She was in the hospital for couple days and then went home and started complaining of some chest discomfort and was brought back to the emergency department and was noticed to be in AFib with RVR. She was treated with rate control and appears she did well after that and reverted back to sinus rhythm. In the office she is in sinus rhythm. She is otherwise not complaining of any other issues. No chest discomfort shortness of breath. She had mild chest discomfort when she went in the emergency department. Taking her medications regularly. Blood pressure control is optimal. 01/30/23: She is here for follow-up. She has been doing well. No chest discomfort shortness of breath. No palpitations. She is taking medications regularly. On apixaban for anticoagulation. She is on Toprol XL 100 mg daily. Not physically active but does some filler feeder without any significant issues. 06/07/2023: She returns for follow-up. She has been doing well. No significant palpitations. No chest discomfort or shortness of breath. Taking medications regularly. Blood pressure control is good. [facility] Medical History Abnormal EKG Abnormal SPEP Age related osteoporosis Anemia Atrial fibrillation with rapid ventricular response Coronary artery disease GERD (gastroesophageal reflux disease) Hyperlipidemia LDL goal <100 Hypertension Hypomagnesemia Left shoulder pain Left shoulder pain Microalbuminuria Neuropathy JONNY (obstructive sleep apnea) Osteoporosis Physical exam Screening for osteoporosis Type 2 diabetes mellitus with hyperglycemia Urinary incontinence Vitamin D deficiency Surgical History History of surgery on arm Hx of breast biopsy Hx of dilation and curettage Family History Mother Diabetes mellitus Father No problems noted. Sister Lymphoma Breast cancer Brother Colon cancer Social History Household Members: Family Housing: House Are you a primary ambulatory care to a significant other at home: No Do you presently have visiting nurse or other home services: Yes (insurance nurse) Alcohol intake: never Patient Tobacco Use Status: Never used Tobacco e-Cigarette/Vaping Use: Never Used Second Hand Smoke Exposure: No service: No Current occupational status: disabled Cognitive needs: No Hearing needs: No Vision needs: Yes Review of Systems Const Denies chills, Denies fatigue, Denies fever(s), Denies frequent falls, Denies weakness, Denies weight gain and Denies weight loss ENT Denies dizziness Card Denies chest pain, Denies leg edema, Denies lightheadedness, Denies palpitations, Denies dyspnea, Denies dyspnea on exertion, Denies orthopnea and Denies other (loss of consciousness) Resp Denies cough, Denies dyspnea and Denies dyspnea on exertion GI Denies hematochezia and Denies change in stool character Musc Denies abnormal gait, Denies muscle weakness, Denies numbness, Denies radiating pain into limb and Denies tingling Neuro Denies abnormal gait, Denies dizziness, Denies frequent falls, Denies numbness, Denies tingling and Denies weakness Endo Denies fatigue and Denies palpitations Physical Exam Vital Signs: Last Vital Signs Pulse 85 06/07/23 15:14 BP 120/72 06/07/23 15:14 BMI result Body Mass Index 24.2 GENERAL APPEARANCE: in no acute distress, pleasant. NECK: no carotid bruit, no jugular venous distention. SKIN: no suspicious lesions, warm and dry. HEART: no murmurs, regular rate and rhythm. LUNGS: clear to auscultation bilaterally. ABDOMEN: soft, nontender. EXTREMITIES: no edema. PERIPHERAL PULSES: equal. NEUROLOGIC: No gross deficits, AAO X 3 Assessment & Plan Assessment & Plan (1) Hypertension: Code(s): I10 - Essential (primary) hypertension Qualifiers: Hypertension type: essential hypertension Qualified Code(s): I10 - Essential (primary) hypertension (2) PAF (paroxysmal atrial fibrillation): Code(s): I48.0 - Paroxysmal atrial fibrillation Plan Pleasant 82-year-old female who is here for follow-up. Doing well. No chest discomfort shortness of breath. She had previously experienced chest discomfort while she had AFib with RVR and was in the emergency department. Since AFib has been controlled she has no further chest pains. Overall she is clinically stable. Blood pressure control is good too. Continue medications as before. She will see us back in 6 months. Thank you for allowing me to participate in the care of your patient. Please feel free to contact me if you have any questions. Coding Level of Care Code Est Pt Level 4 (07592) Diagnoses Essential hypertension I10 Hypertension type: essential hypertension PAF (paroxysmal atrial fibrillation) I48.0
== END 2023-06-07 16:28 | disposition home or self-care (01) ==
PROVIDERS: PCP Internal Medicine; Visit Provider Internal Medicine Cardiovascular Disease
DX: I10 Essential (primary) hypertension (principal); I48.0 Paroxysmal atrial fibrillation
CPT/HCPCS: 99214

== ENCOUNTER → 2023-06-07 15:00 | Outpatient (BNVA) | payer MEDICARE, OTHER, MEDICAID, SELFPAY | PROVIDERS: PCP Internal Medicine; Visit Provider Internal Medicine Cardiovascular Disease | DX: I48.0 Paroxysmal atrial fibrillation (principal); I10 Essential (primary) hypertension | CPT/HCPCS: 99212 ==

== ENCOUNTER 2023-06-29 09:12 | Outpatient (REF) | payer MEDICARE, OTHER, MEDICAID, SELFPAY ==
[2023-06-29 10:52] LABS: Creatinine Urine 59.06 mg/dL; Microalbum/Creatinine Ratio Ur 433.4 ug/mg cr (<30)
[2023-06-29 10:57] LABS: Alanine Aminotransferase 10 U/L (0-31); Albumin Level 4.2 g/dL (3.5-5.0); Alkaline Phosphatase 79 U/L (39-117); Anion Gap 14 (12-20); Aspartate Amino Transferase 11 U/L (5-31); Bilirubin Total 0.4 mg/dL (0.0-1.0); Blood Urea Nitrogen 19 mg/dL (9-16); Calcium 10.3 mg/dL (8.4-10.2); Carbon Dioxide 32 mmol/L (22-29); Chloride 102 mmol/L (96-108); Cholesterol 110 mg/dL (<200); Estimated Glomerular Filt Rate 48; Glucose Fasting 148 mg/dL (60-99); HDL Cholesterol 52 mg/dL (>40); LDL Cholesterol Calculated 44 mg/dL (<100); Magnesium 1.7 mg/dL (1.6-2.6); Potassium 4.7 mmol/L (3.3-5.1); Sodium 143 mmol/L (135-145); Total Protein 7.7 g/dL (6.5-8.0); Triglycerides 73 mg/dL (<150)
== END 2023-06-29 09:13 | disposition home or self-care (01) ==
LOC: HO.LAB 09:12
PROVIDERS: PCP Internal Medicine; Visit Provider Internal Medicine
DX: E11.9 Type 2 diabetes mellitus without complications (principal); E78.5 Hyperlipidemia, unspecified; E83.42 Hypomagnesemia
CPT/HCPCS: 36415; 80053; 80061; 82043; 82570; 83735

== ENCOUNTER 2023-07-04 15:21 | Outpatient (AMB) | payer MEDICARE, OTHER, MEDICAID, SELFPAY ==
--- NOTE | 2023-07-04 15:23 | MHC.PC.OV ---
Vital Signs 07/04/23 15:26 Height 5 ft 3 in Weight 137 lb BMI 24.3 BP 120/70 Blood Pressure Location Lt brachial Position Sitting Intake Visit Reasons: 4 month f/u Intake Note: Patient here for a 4 month follow up Bale Piler Required: No Accompanied by: Daughter Allergies No Known Allergies Allergy (Verified 07/04/23 15:39) Medication List - Last Reconciled 07/04/23 by Pam Montoya MD [adult diapers As directed] albuterol sulfate 90 mcg/actuation 2 puffs inhalation Q4-6H PRN 30 days amlodipine 5 mg PO DAILY 90 days apixaban (Eliquis) 5 mg PO BID 90 days blood sugar diagnostic TEST 3 TIMES DAILY cholecalciferol (vitamin D3) 25 mcg PO DAILY 90 days commode (bedside commode) As directed denosumab (Prolia) 60 mg subcut [id number] dulaglutide (Trulicity) 1.5 mg (0.5 mL) subcut QWEEK 90 days gabapentin 100 mg PO DAILY 90 days isosorbide mononitrate ER 30 mg PO DAILY 90 days levalbuterol tartrate 45 mcg/actuation (Xopenex HFA) 2 puffs inhalation Q4-6H PRN magnesium oxide 400 mg PO DAILY 90 days metformin 1,000 mg PO BID 90 days metoprolol succinate ER 100 mg PO DAILY 90 days omeprazole 20 mg PO DAILY 90 days rosuvastatin 10 mg PO DAILY 90 days tizanidine 2 mg PO Q8H PRN underpads (Certainty Underpads) Use 1 to 2 times a day Tobacco use date assessed: 12/07/22 Fall risk assessment: No Falls in past year Last assessed Fall Risk: 07/04/23 Dental Screening Dental Screen Date: 07/04/23 Did you have a dental visit in the last 12 months?: No Did you have a dental problem in the last 6 months where you did not have access to dental care?: No Was dental information given to patient?: Patient has dentist HPI HPI Comments History of Present Illness Details This is an 82-year-old female with diabetes mellitus type 2, hypertension, hyperlipidemia and atrial fibrillation that comes accompanied by daughter for follow-up on her conditions. A1c elevated and patient would like to add glipizide 5 mg once a day. She had prednisone about 2 weeks ago which can be the cause of the hyperglycemia. Blood pressure stable. LDL within goal. On chronic anticoagulation for atrial fibrillation that is follow by cardiology. Denies any active bleeding. Denies any chest pain or shortness of breath. [facility] Medical History (Updated 07/04/23 @ 15:54 by Pam Montoya MD) Left shoulder pain Hyperlipidemia LDL goal <100 Abnormal SPEP Vitamin D deficiency Osteoporosis Age related osteoporosis Physical exam Hypomagnesemia Atrial fibrillation with rapid ventricular response Urinary incontinence Abnormal EKG Screening for osteoporosis Neuropathy Microalbuminuria JONNY (obstructive sleep apnea) Left shoulder pain Anemia GERD (gastroesophageal reflux disease) Coronary artery disease Hypertension Type 2 diabetes mellitus with hyperglycemia Surgical History History of surgery on arm Hx of dilation and curettage Hx of breast biopsy Family History Mother Diabetes mellitus Father No problems noted. Sister Lymphoma Breast cancer Brother Colon cancer Social History Household Members: Family Housing: House Are you a primary medication care manager to a significant other at home: No Do you presently have visiting nurse or other home services: Yes (insurance nurse) Alcohol intake: never Patient Tobacco Use Status: Never used Tobacco e-Cigarette/Vaping Use: Never Used Second Hand Smoke Exposure: No service: No Current occupational status: disabled Cognitive needs: No Hearing needs: No Vision needs: Yes Questionnaire Thrive Questionnaire Date Thrive assessed: 08/31/22 LINDSAY-7 AMB Questionnaire LINDSAY-7 Date LINDSAY - 7 assessed: 08/31/22 Source: Developed by Drs. Jayro Wan, Tara Gutierrez, Bryant Reno and colleagues, with an educational adore from [employer]. Review of Systems Const All systems reviewed & are unremarkable except as noted in HPI and below Eyes Reports no additional complaints, Denies change in vision and Denies other visual disturbances Card Denies chest pain at rest, Denies chest pain with activity, Denies edema, Denies irregular heart rhythm, Denies claudication, Denies dyspnea, Denies dyspnea on exertion, Denies orthopnea, Denies paroxysmal nocturnal dyspnea and Denies slow heart rate Resp Denies cough, Denies dyspnea and Denies dyspnea on exertion GI Denies abdominal pain, Denies change in bowel habits, Denies excessive flatus, Denies nausea and Denies vomiting Denies urinary incontinence, Denies urinary hesitancy and Denies urinary urgency Musc Denies abnormal gait, Denies atrophy, Denies deformity and Denies limited range of motion Skin/Breast Denies bleeding lesions, Denies changing lesions and Denies rash Neuro Denies abnormal gait, Denies behavioral changes and Denies lack of coordination Psych Denies behavioral changes Physical exam (Primary Care) Vital Signs: Last Vital Signs BP 120/70 07/04/23 15:26 BMI result Body Mass Index 24.3 Tobacco/Smoking Status: Tobacco use Status Tobacco use date assessed 12/07/22 07/04/23 15:25 Patient Tobacco Use Status Never used Tobacco 07/04/23 15:25 e-Cigarette/Vaping Use Never Used 07/04/23 15:25 Thrive Assessment: Date of Thrive Assessment Date Thrive assessed 08/31/22 07/04/23 15:25 Eyes General: appearance normal, both eyes and all related structures Eyelids: Yes eyelids normal Conjunctivae: conjunctivae normal Neck Neck: Yes normal visual inspection and Yes supple Resp Effort & Inspection: normal respiratory effort Auscultation: clear to auscultation bilaterally Cardio Jugular venous distension: no JVD Rate: regular rate Rhythm: regular rhythm Heart sounds: S1 normal heart sound present and S2 normal heart sound present Extrem General: Yes full ROM Office Procedures Flu Questionnaire Does the patient have a severe egg allergy?: No Results AMB Hemoglobin A1c AMB Hemoglobin A1c 8.1 % Last Edit by JIM Mcneill on 07/04/23 15:40 Immunizations flu vacc [id number] 6mos up(PF) 60 mcg(15 mcgx4)/0.5 mL IM syringe Performing Provider: Pam Montoya MD [facility] Documented (not given) by: JIM Mcneill on 07/04/23 15:30 Reason Not Given: Patient Refused Results Reviewed Results Reviewed: Laboratory Last Values Hgb A1c (Clinic) 8.1 % (4.0-6.0) H 07/04/23 15:23 Assessment and Plan Assessment & Plan (1) Type 2 diabetes mellitus with hyperglycemia: Code(s): E11.65 - Type 2 diabetes mellitus with hyperglycemia Qualifiers: Diabetes mellitus mcc insulin use: without mcc use Qualified Code(s): E11.65 - Type 2 diabetes mellitus with hyperglycemia Plan: Continue metformin and Trulicity. Start glipizide. A1c goal is equal or less than 7%. (2) Hypertension: Code(s): I10 - Essential (primary) hypertension Qualifiers: Hypertension type: essential hypertension Qualified Code(s): I10 - Essential (primary) hypertension Plan: Continue amlodipine. Blood pressure goal is equal or less than 130/80. (3) Atrial fibrillation with rapid ventricular response: Code(s): I48.91 - Unspecified atrial fibrillation Plan: Continue metoprolol and Eliquis. The goal is heart rate control. Follow-up with Cardiology. (4) Hyperlipidemia LDL goal <70: Code(s): E78.5 - Hyperlipidemia, unspecified Plan: Continue statins. LDL goal is less than 70. Orders: Orders Influenza [id number] Immunization Today Z23 - Encounter for immunization Vitamin D 25-OH Total 4 Months E55.9 - Vitamin D deficiency, unspecified Comprehensive [place]. Panel Fast 4 Months E78.5 - Hyperlipidemia, unspecified AMB Hemoglobin A1c Today E11.65 - Type 2 diabetes mellitus with hyperglycemia Lipid Panel 4 Months E78.5 - Hyperlipidemia, unspecified Microalbumin, Random (w Creat) 4 Months E11.9 - Type 2 diabetes mellitus without complications Referrals Ear/Nose/Throat Referral H91.90 - Unspecified hearing loss, unspecified ear Medications: New glipizide 5 mg PO DAILY 90 days 90 tabs 1RF Coding Level of Care Code Est Pt Level 4 (45829) Diagnoses Type 2 diabetes mellitus with hyperglycemia, without long-term current use of insulin E11.65 Diabetes mellitus rn long term care insulin use: without rn long term care use Essential hypertension I10 Hypertension type: essential hypertension Atrial fibrillation with rapid ventricular response I48.91 Hyperlipidemia LDL goal <70 E78.5 Time Spent (min) 23
[2023-07-04 15:26] VITALS: BP 120/70; BMI 24.3
== END 2023-07-04 15:54 | disposition home or self-care (01) ==
PROVIDERS: PCP Internal Medicine; Visit Provider Internal Medicine
DX: E11.65 Type 2 diabetes mellitus with hyperglycemia (principal); I48.91 Unspecified atrial fibrillation; I10 Essential (primary) hypertension; E78.5 Hyperlipidemia, unspecified
CPT/HCPCS: 83036; 99214

== ENCOUNTER 2023-08-03 12:51 | Outpatient (AMB) | payer MEDICARE, OTHER, MEDICAID, SELFPAY ==
[2023-08-03 12:57] VITALS: BP 144/62; PULSE 87; BMI 23.5
--- NOTE | 2023-08-03 12:57 | MHC.OFFVIS ---
Intake Vital Signs 08/03/23 12:57 Height 5 ft 3 in Weight 132 lb 11.492 oz BMI 23.5 BP 144/62 H Blood Pressure Location Lt brachial Position Sitting Pulse 87 Pulse Source Pulse Oximeter Intake Visit Reasons: F/U Osteoporosis/CONFIRMED Intake Note: Patient presents today to follow up on Osteoporosis. Last seen by Dr. Patel on 10/12/2022. Computing Services Director Required: Yes Computing Services Director Language: Analytics Specialist Name: Clemencia medical staff Information Interpreted: non-clinical & clinical Accompanied by: Daughter Allergies No Known Allergies Allergy (Verified 08/03/23 13:03) HPI HPI Comments History of Present Illness Details 83 YO Female with PMHx Osteoporosis, DM2, CKD Stage 3, AFib on chronic AC with eliquis who is seen in F/U for Osteoporosis. The patient last saw Dr. Patel on 10/12/2022 First diagnosed in 2021 with her first DXA. She began treatment for her Osteoporosis with Prolia with her first injection 04/04/2022. After her initial visit we completed a biochemical assessment for secondary causes of Osteoporosis, which did reveal an abnormal SPEP. She was referred to Heme-Onc and underwent additional testing, and per Heme-Onc no evidence of multiple myeloma or MGUS. No history of pathologic fracture or ONJ. Has 0-1 servings of dietary calcium per day in the form of milk and cheese. Takes Calcium citrate 600 mg PO BID. She takes Vitamin D 1000 IU daily. Uses PPI daily and also anticoagulant eliquis since June 2021. Denies ever using antiepileptic or glucocorticoid medication. Does no scheduled exercise. Fracture history: Fractured her R shoulder in 2011 in [place], this was traumatic. 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 Menses was regular. . Breastfed for 9-12 months in total. Menopause was age 49. She did not use HRT. Denies a history of Kidney stones. Denies a family history of Osteoporosis or hip fracture. UTD on dental cleanings and sees dentist every 6 months. No planned upcoming dental work or extractions. DXA: 09/01/2021 FINDINGS: AP SPINE L1-L4: BMD 0.934 g/cm2, Z-score -0.1, T-score -2.0, osteopenia. LEFT FEMUR, NECK: BMD 0.694 g/cm2, Z-score -0.2, T-score -2.5, osteoporosis. LEFT FEMUR, TOTAL: BMD 0.858 g/cm2, Z-score 1.0, T-score -1.2, osteopenia. Labs: Laboratory Tests 10/03/22 10/03/22 10/03/22 15:43 15:45 15:45 Creatinine 1.15 Estimated GFR 45 N-Telopeptide X-li nked 19 25-OH Vitamin D To matias 33.3 PTH Intact 44 Calcium (PTH Intac t) 10.1 Currently on Prolia since 04/14 . No fx in back or hip [facility] Medical History Left shoulder pain Hyperlipidemia LDL goal <100 Abnormal SPEP Vitamin D deficiency Osteoporosis Age related osteoporosis Physical exam Hypomagnesemia Atrial fibrillation with rapid ventricular response Urinary incontinence Abnormal EKG Screening for osteoporosis Neuropathy Microalbuminuria JONNY (obstructive sleep apnea) Left shoulder pain Anemia GERD (gastroesophageal reflux disease) Coronary artery disease Hypertension Type 2 diabetes mellitus with hyperglycemia Surgical History History of surgery on arm Hx of dilation and curettage Hx of breast biopsy Family History Mother Diabetes mellitus Father No problems noted. Sister Lymphoma Breast cancer Brother Colon cancer Social History Household Members: Family Housing: House Are you a primary restorative care technician to a significant other at home: No Do you presently have visiting nurse or other home services: Yes (insurance nurse) Alcohol intake: never Patient Tobacco Use Status: Never used Tobacco e-Cigarette/Vaping Use: Never Used Second Hand Smoke Exposure: No service: No Current occupational status: disabled Cognitive needs: No Hearing needs: No Vision needs: Yes Physical Exam Vital Signs: Last Vital Signs Pulse 87 08/03/23 12:57 BP 144/62 H 08/03/23 12:57 BMI result Body Mass Index 23.5 Assessment & Plan Assessment & Plan (1) Osteoporosis: Code(s): M81.0 - Age-related osteoporosis without current pathological fracture Plan: This 83-year-old female with a history of osteoporosis and negative secondary workup currently being treated with Prolia since 04/04/2022. We will continue Prolia injections but will recheck DEXA bone density. If bone density is stable or improved, could consider converting to oral bisphosphonate for 1 year but would not use intravenous bisphosphonate considering diminished GFR. I talked to her and her daughter about transitioning to a bisphosphonate but they are going to wait after the repeat bone density and next injection of Prolia for discussion about transitioning at next visit Orders: Orders Albumin Level 4 Weeks M81.0 - Age-related osteoporosis without current pathological fracture XR DEXA axial skeleton Today M81.0 - Age-related osteoporosis without current pathological fracture Basic Metabolic Panel 4 Weeks M81.0 - Age-related osteoporosis without current pathological fracture Calcium 4 Weeks M81.0 - Age-related osteoporosis without current pathological fracture Coding Level of Care Code Est Pt Level 3 (76702) Diagnoses Osteoporosis M81.0
== END 2023-08-03 13:49 | disposition home or self-care (01) ==
PROVIDERS: PCP Internal Medicine; Visit Provider Internal Medicine Endocrinology, Diabetes & Metabolism
DX: M81.0 Age-related osteoporosis without current pathological fracture (principal)
CPT/HCPCS: 99213

== ENCOUNTER → 2023-08-03 12:51 | Outpatient (BNVA) | payer MEDICARE, OTHER, MEDICAID, SELFPAY | PROVIDERS: Visit Provider Internal Medicine Endocrinology, Diabetes & Metabolism | DX: M81.0 Age-related osteoporosis without current pathological fracture (principal) | CPT/HCPCS: 99212 ==

== ENCOUNTER 2023-09-15 07:20 | Outpatient (REF) | payer MEDICARE, OTHER, MEDICAID, SELFPAY ==
[2023-09-15 08:47] LABS: Albumin Level 4.2 g/dL (3.5-5.0); Anion Gap 14 (12-20); Blood Urea Nitrogen 18 mg/dL (9-16); Calcium 9.6 mg/dL (8.4-10.2); Carbon Dioxide 26 mmol/L (22-29); Chloride 106 mmol/L (96-108); Estimated Glomerular Filt Rate 47; Glucose Random 165 mg/dL (60-115); Potassium 4.9 mmol/L (3.3-5.1); Sodium 141 mmol/L (135-145)
== END 2023-09-15 07:21 | disposition home or self-care (01) ==
LOC: HO.LAB 07:20
PROVIDERS: Internal Medicine Endocrinology, Diabetes & Metabolism; PCP Internal Medicine; Visit Provider Internal Medicine
DX: M81.0 Age-related osteoporosis without current pathological fracture (principal)
CPT/HCPCS: 36415; 80048; 82040

== ENCOUNTER 2023-09-21 07:50 | Outpatient (AMB) | payer MEDICARE, OTHER, MEDICAID, SELFPAY ==
--- NOTE | 2023-09-21 07:51 | MHC.PC.OV ---
Vital Signs 09/21/23 07:52 09/21/23 09:52 Height 5 ft 3 in Weight 130 lb BMI 23.0 BP 160/68 H 160/70 H Blood Pressure Location Lt brachial Lt brachial Position Sitting Sitting Intake Visit Reasons: 4 month f/u DM Intake Note: Patient here for a 4 month follow up Live Out Nanny Required: No Accompanied by: Daughter Allergies No Known Allergies Allergy (Verified 09/21/23 08:20) Medication List - Last Reconciled 09/21/23 by Pam Montoya MD [adult diapers As directed] albuterol sulfate 90 mcg/actuation 2 puffs inhalation Q4-6H PRN 30 days amlodipine 5 mg PO DAILY 90 days apixaban (Eliquis) 5 mg PO BID 90 days blood sugar diagnostic TEST 3 TIMES DAILY cholecalciferol (vitamin D3) 25 mcg PO DAILY 90 days commode (bedside commode) As directed denosumab (Prolia) 60 mg subcut [id number] dulaglutide (Trulicity) 1.5 mg (0.5 mL) subcut QWEEK 90 days dulaglutide (Trulicity) 0.75 mg (0.5 mL) subcut QWEEK 90 days gabapentin 100 mg PO DAILY 90 days glipizide 10 mg (2 x 5 mg) PO DAILY 90 days isosorbide mononitrate ER 30 mg PO DAILY 90 days levalbuterol tartrate 45 mcg/actuation (Xopenex HFA) 2 puffs inhalation Q4-6H PRN magnesium oxide 400 mg PO DAILY 90 days metformin 1,000 mg PO BID 90 days metoprolol succinate ER 100 mg PO DAILY 90 days omeprazole 20 mg PO DAILY 90 days rosuvastatin 10 mg PO DAILY 90 days tizanidine 2 mg PO Q8H PRN underpads (Certainty Underpads) Use 1 to 2 times a day Tobacco use date assessed: 09/21/23 Fall risk assessment: No Falls in past year Last assessed Fall Risk: 09/21/23 Dental Screening Dental Screen Date: 09/21/23 Did you have a dental visit in the last 12 months?: No Was dental information given to patient?: Patient has dentist HPI HPI Comments History of Present Illness Details This is an 83-year-old female with diabetes mellitus type 2, hypertension, hyperlipidemia, age-related osteoporosis, COPD and paroxysmal atrial fibrillation that comes today accompanied by daughter which is the patient access specialist for follow-up on her conditions. Last A1c was elevated in June and I will discontinue glipizide and start her on Jardiance. Blood pressure elevated today and will be recheck in 3 weeks by nurse navigator. She has not take her blood pressure medications yet. LDL was within goal. Has osteoporosis follow by Endocrinology and they will decide the next office visit if she will be on Prolia or medications. Has COPD follow by pulmonology and only use rescue inhaler as per patient. 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 She follows with cardiology for her atrial fibrillation and is on chronic anticoagulation. She denies any active bleeding. She also has chronic kidney disease stage 3 with GFR of 47 with elevated microalbumin that is follow by Nephrology once a year. Aware she has to avoid NSAIDs. [facility] Medical History (Updated 09/21/23 @ 10:40 by Pam Montoya MD) Left shoulder pain Hyperlipidemia LDL goal <100 Abnormal SPEP Vitamin D deficiency Osteoporosis Age related osteoporosis Physical exam Hypomagnesemia Atrial fibrillation with rapid ventricular response Urinary incontinence Abnormal EKG Screening for osteoporosis Neuropathy Microalbuminuria JONNY (obstructive sleep apnea) Left shoulder pain Anemia GERD (gastroesophageal reflux disease) Coronary artery disease Hypertension Type 2 diabetes mellitus with hyperglycemia Surgical History History of surgery on arm Hx of dilation and curettage Hx of breast biopsy Family History Mother Diabetes mellitus Father No problems noted. Sister Lymphoma Breast cancer Brother Colon cancer Social History Household Members: Family Housing: House Are you a primary director of patient care to a significant other at home: No Do you presently have visiting nurse or other home services: Yes (insurance nurse) Alcohol intake: never Patient Tobacco Use Status: Never used Tobacco e-Cigarette/Vaping Use: Never Used Second Hand Smoke Exposure: No service: No Current occupational status: disabled Cognitive needs: No Hearing needs: No Vision needs: Yes Questionnaire PHQ-9 Over the last 2 weeks, how often have you been bothered by any of the following problems? 1. Little interest or pleasure in doing things: not at all 2. Feeling down, depressed, or hopeless: not at all 3. Trouble falling or staying asleep, or sleeping too much: not at all 4. Feeling tired or having little energy: not at all 5. Poor appetite or overeating: not at all 6. Feeling bad about yourself - or that you are a failure or have let yourself or your family down: not at all 7. Trouble concentrating on things, such as reading the newspaper or watching television: not at all 8. Moving or speaking so slowly that other people could have noticed. Or the opposite - being so fidgety or restless that you have been moving around a lot more than usual: not at all 9. Thoughts that you would be better off or of hurting yourself in some way: not at all Total score: 0 Depression Screening Interpretation: Negative Depression Screening Done: Yes 48531 - PHQ-9 Billing: Yes Source: Developed by Drs. Jayro Wan, Tara Gutierrez, Bryant Reno and colleagues, with an educational adore from [employer]. Thrive Questionnaire Date Thrive assessed: 09/21/23 I am a: Patient What is your living situation today?: I have a steady place to live Within the past 12 months, did the food you bought not last and you didn't have the money to get more?: Never true Within the past 12 months, did you worry whether your food would run out before you got money to buy more?: Never true Do you have trouble paying for medicines?: No Do you have trouble getting transportation to medical appointments?: No Do you have trouble paying your heating and electricity bill?: No Do you have trouble taking care of your child, family member or friend?: No Do you have trouble with day-to-day activities such as bathing, preparing meals, shopping, managing finances, etc.?: Yes Are you currently unemployed and looking for a job?: No Are you interested in more education?: No Please select the resources that you would like help with: None Currently or been in a relationship where the following occur: no concerns reported THRIVE Score: 0 AUDIT C Alcohol Use Questionnaire (AUDIT-C) 1. How often do you have a drink containing alcohol?: Never Total Score: 0 LINDSAY-7 AMB Questionnaire LINDSAY-7 Date LINDSAY - 7 assessed: 09/21/23 Feeling nervous, anxious, or on edge: 1 = Several days Not being able to stop or control worryin = Not at all Worrying too much about different things: 0 = Not at all Trouble relaxin = Not at all Being so restless that it is hard to sit still: 0 = Not at all Becoming easily annoyed or irritable: 0 = Not at all Feeling afraid as if something awful might happen: 0 = Not at all Total LINDSAY-7 score (0-4 normal; 5-9 mild; 10-14 moderate; 15-21 severe): 1 Source: Developed by Drs. Jayro Wan, Tara Gutierrez, Bryant Reno and colleagues, with an educational adore from [employer]. LINDSAY-7 Assessment Billing LINDSAY-7 Assessment Tool: LINDSAY-7 Assessment 62356 Review of Systems Const All systems reviewed & are unremarkable except as noted in HPI and below Eyes Reports no additional complaints, Denies change in vision and Denies other visual disturbances Card Denies chest pain at rest, Denies chest pain with activity, Denies edema, Denies irregular heart rhythm, Denies claudication, Denies dyspnea, Denies dyspnea on exertion, Denies orthopnea, Denies paroxysmal nocturnal dyspnea and Denies slow heart rate Resp Denies cough, Denies dyspnea and Denies dyspnea on exertion GI Denies abdominal pain, Denies change in bowel habits, Denies excessive flatus, Denies nausea and Denies vomiting Denies urinary incontinence, Denies urinary hesitancy and Denies urinary urgency Musc Denies abnormal gait, Denies atrophy, Denies deformity and Denies limited range of motion Skin/Breast Denies bleeding lesions, Denies changing lesions and Denies rash Neuro Denies abnormal gait, Denies behavioral changes and Denies lack of coordination Psych Denies behavioral changes Physical exam (Primary Care) Vital Signs: Last Vital Signs BP 160/70 H 09/21/23 09:52 BMI result Body Mass Index 23.0 Tobacco/Smoking Status: Tobacco use Status Tobacco use date assessed 09/21/23 09/21/23 08:01 Patient Tobacco Use Status Never used Tobacco 09/21/23 07:56 e-Cigarette/Vaping Use Never Used 09/21/23 07:56 PHQ-9: PHQ-9 Score PHQ-9: Total score 0 09/21/23 09:57 Depression Screening Interpretation: Negative Thrive Assessment: Date of Thrive Assessment Date Thrive assessed 09/21/23 09/21/23 07:56 Currently or been in a relationship where the following occur: no concerns reported Eyes General: appearance normal, both eyes and all related structures Eyelids: Yes eyelids normal Conjunctivae: conjunctivae normal Neck Neck: Yes normal visual inspection and Yes supple Resp Effort & Inspection: normal respiratory effort Auscultation: clear to auscultation bilaterally Cardio Jugular venous distension: no JVD Rate: regular rate Rhythm: regular rhythm Heart sounds: S1 normal heart sound present and S2 normal heart sound present Extrem General: Yes full ROM Assessment and Plan Assessment & Plan (1) Type 2 diabetes mellitus with hyperglycemia: Code(s): E11.65 - Type 2 diabetes mellitus with hyperglycemia Qualifiers: Diabetes mellitus senior care insulin use: without senior care use Qualified Code(s): E11.65 - Type 2 diabetes mellitus with hyperglycemia Plan: Continue Trulicity and metformin. Start Jardiance. Discontinue glipizide. A1c goal is equal or less than 7%. (2) Hypertension: Code(s): I10 - Essential (primary) hypertension Qualifiers: Hypertension type: essential hypertension Qualified Code(s): I10 - Essential (primary) hypertension Plan: Continue amlodipine. Blood pressure goal is equal or less than 130/80. Recheck blood pressure with nurse navigator in 3 weeks. (3) PAF (paroxysmal atrial fibrillation): Code(s): I48.0 - Paroxysmal atrial fibrillation Plan: Continue metoprolol and Doac. The goal is heart rate control. Follow-up with Cardiology. (4) COPD (chronic obstructive pulmonary disease): Comment: Follow by pulmonology Dr. Gee Code(s): J44.9 - Chronic obstructive pulmonary disease, unspecified Plan: Continue rescue inhaler as needed. Follow-up with pulmonology. (5) Hyperlipidemia LDL goal <70: Code(s): E78.5 - Hyperlipidemia, unspecified Plan: Continue statins. (6) CKD (chronic kidney disease) stage 3, GFR 30-59 ml/min: Code(s): N18.30 - Chronic kidney disease, stage 3 unspecified Qualifiers: Chronic kidney disease stage 3 subtype: stage 3a (GFR 45-59) Qualified Code(s): N18.31 - Chronic kidney disease, stage 3a Plan: Follow-up with nephrology. Avoid NSAIDs. Keep blood pressure within goal. (7) Age related osteoporosis: Code(s): M81.0 - Age-related osteoporosis without current pathological fracture Qualifiers: Presence of current pathological fracture: without current pathological fracture Qualified Code(s): M81.0 - Age-related osteoporosis without current pathological fracture Plan: Continue Prolia. Follow-up with endocrinology to see if she will keep Prolia or not. Orders: Orders Microalbumin, Random (w Creat) 4 Months E11.9 - Type 2 diabetes mellitus without complications Lipid Panel 4 Months E78.5 - Hyperlipidemia, unspecified Comprehensive Advance. Panel Fast 4 Months E11.65 - Type 2 diabetes mellitus with hyperglycemia Medications: New empagliflozin (Jardiance) 10 mg PO DAILY 90 days 90 tabs 1RF alprazolam 0.5 mg PO DAILY 6 days PRN 6 tabs 0RF anxiety Refilled omeprazole 20 mg PO DAILY 90 days 90 caps 3RF K21.9 - Gastro-esophageal reflux disease without esophagitis Discontinued dulaglutide (Trulicity) Discontinued Reason: Patient Completed Course 1.5 mg (0.5 mL) subcut QWEEK 90 days 6.5 mL 1RF E11.65 - Type 2 diabetes mellitus with hyperglycemia glipizide Discontinued Reason: Patient Completed Course 10 mg (2 x 5 mg) PO DAILY 90 days 180 tabs 1RF Coding Level of Care Code Est Pt Level 4 (01688) Diagnoses Type 2 diabetes mellitus with hyperglycemia, without long-term current use of insulin E11.65 Diabetes mellitus senior care insulin use: without long term care administrator use Essential hypertension I10 Hypertension type: essential hypertension PAF (paroxysmal atrial fibrillation) I48.0 COPD (chronic obstructive pulmonary disease) J44.9 Hyperlipidemia LDL goal <70 E78.5 Stage 3a chronic kidney disease N18.31 Chronic kidney disease stage 3 subtype: stage 3a (GFR 45-59) Age-related osteoporosis without current pathological fracture M81.0 Presence of current pathological fracture: without current pathological fracture Additional Codes LINDSAY-7 Assessment Billing - LINDSAY-7 Assessment Tool: LINDSAY-7 Assessment 40194 ([id number]) Time Spent (min) 25
[2023-09-21 07:52] VITALS: BP 160/68; BMI 23.0
[2023-09-21 09:52] VITALS: BP 160/70
== END 2023-09-21 08:44 | disposition home or self-care (01) ==
PROVIDERS: PCP Internal Medicine; Visit Provider Internal Medicine
DX: E11.65 Type 2 diabetes mellitus with hyperglycemia (principal); I48.0 Paroxysmal atrial fibrillation; J44.9 Chronic obstructive pulmonary disease, unspecified; E78.5 Hyperlipidemia, unspecified; M81.0 Age-related osteoporosis without current pathological fracture
CPT/HCPCS: 99214

== ENCOUNTER 2023-09-29 15:36 | Outpatient (REF) | payer MEDICARE, OTHER, MEDICAID, SELFPAY ==
[2023-09-29 17:34] LABS: Alanine Aminotransferase 10 U/L (0-31); Albumin Level 4.2 g/dL (3.5-5.0); Alkaline Phosphatase 83 U/L (39-117); Anion Gap 16 (12-20); Aspartate Amino Transferase 12 U/L (5-31); Bilirubin Total 0.3 mg/dL (0.0-1.0); Blood Urea Nitrogen 19 mg/dL (9-16); Calcium 9.2 mg/dL (8.4-10.2); Carbon Dioxide 25 mmol/L (22-29); Chloride 105 mmol/L (96-108); Cholesterol 106 mg/dL (<200); Estimated Glomerular Filt Rate 47; Glucose Fasting 152 mg/dL (60-99); HDL Cholesterol 48 mg/dL (>40); LDL Cholesterol Calculated 42 mg/dL (<100); Potassium 4.5 mmol/L (3.3-5.1); Sodium 141 mmol/L (135-145); Total Protein 7.5 g/dL (6.5-8.0); Triglycerides 81 mg/dL (<150)
[2023-09-29 17:56] LABS: Vitamin D 25-OH Total 55.2 ng/mL (>30)
[2023-09-29 22:35] LABS: Creatinine Urine 100.88 mg/dL; Microalbum/Creatinine Ratio Ur 397.5 ug/mg cr (<30)
== END 2023-09-29 15:37 | disposition home or self-care (01) ==
LOC: HO.LAB 15:36
PROVIDERS: PCP Internal Medicine; Visit Provider Internal Medicine Endocrinology, Diabetes & Metabolism
DX: E11.65 Type 2 diabetes mellitus with hyperglycemia (principal); E55.9 Vitamin D deficiency, unspecified; E78.5 Hyperlipidemia, unspecified
CPT/HCPCS: 36415; 80053; 80061; 82043; 82306; 82570

== ENCOUNTER 2023-10-05 13:57 | Outpatient (REF) | payer MEDICARE, OTHER, MEDICAID, SELFPAY ==
--- NOTE | ~2023-10-05 | MM_ITS ---
EXAMINATION: MM SCREENING DIGITAL BREAST TOMOSYNTHESIS, BILATERAL CLINICAL INFORMATION: Screening. Asymptomatic. COMPARISON: Mammography: 10/03/2022, 09/04/2021, 07/01/2019 ([facility]) TECHNIQUE: Digital breast tomosynthesis is performed in both the craniocaudal and mediolateral oblique views along with computer-aided detection (CAD). Synthesized 2D images are generated from the tomosynthesis. FINDINGS: The breasts are heterogeneously dense, which may obscure small masses (ACR BI-RADS breast composition Category c). Parenchymal pattern is similar to prior exams. There is no significant mass or architectural abnormality. Biopsy clip marker again seen adjacent to old stable nodule mid upper outer right breast. There are scattered bilateral round and coarse and vascular calcifications again seen. Calcifications in the posterior one third right breast, lower inner quadrant, are stable. The axilla and skin contours are unremarkable. No significant changes. MM/MM tomosynthesis screening BI IMPRESSION: No mammographic evidence of malignancy. ASSESSMENT: BI-RADS BI-RADS 2 - Benign Findings RECOMMENDATION: Routine annual mammography screening. 1 year F/U This examination should not preclude the clinical evaluation of a suspicious palpable abnormality. This patient's information was entered into a reminder system with a target due date for their next mammogram.
--- NOTE | ~2023-10-05 | MM_ITS ---
EXAMINATION: BONE DENSITOMETRY CLINICAL INDICATION: Age-related osteoporosis without current pathological fracture. COMPARISON: Baseline BD dated 09/01/2021. TECHNIQUE: Using a [employer] DXA System (software version: 13.1) manufactured by [employer], dual-energy x-ray absorptiometry was performed of the lumbar spine and left hip. The images are of good technical quality. Summary results are attached. FINDINGS: LEFT FEMUR, NECK: Current: BMD 0.711 g/cm2, Z-score 0.1, T-score -2.4, osteopenia. Baseline: BMD 0.694 g/cm2. LEFT FEMUR, TOTAL: Current: BMD 0.864 g/cm2, Z-score 1.2, T-score -1.1, osteopenia, 0.7% increase from baseline (<5% change is not significant). Baseline: BMD 0.858 g/cm2. AP SPINE L1-L4: Current: BMD 0.962 g/cm2, Z-score 0.2, T-score -1.8, osteopenia, 3.0% increase from baseline (<5% change is not significant). Baseline: BMD 0.934 g/cm2. IDENTIFIED RISK FACTORS: Menopause, osteoporosis, history of fracture (adult), height loss, anticonvulsant. HISTORY OF FRACTURE: Shoulder. MEDICATIONS: Calcium, vitamin D, Prolia. MM/XR DEXA axial skeleton IMPRESSION: 1. DIAGNOSIS: Osteopenia based on the lowest T-score value of -2.4 in the femoral neck applying World Health Organization criteria. 2. 10-YEAR FRACTURE RISK PREDICTION, FRAX: Not performed in this patient on estrogen or bone building treatments. 3. Treatment Recommendations: NOF guidelines recommend consideration for treatment in postmenopausal women and men age 50 and older presenting with the following: -A hip or vertebral (clinical or morphometric) fracture. -T-score less than or equal to -2.5 at the femoral neck or spine after appropriate evaluation to exclude secondary causes. -Low bone mass at the hip or spine and a 10-year fracture probability by FRAX of greater than or equal to 3% for hip fracture or greater than or equal to 20% for major osteoporotic fracture based on the [place] adapted WHO algorithm. 4. Other Recommendations: All treatment decisions require clinical judgment and consideration of individual patient factors, including patient preferences, comorbidities, previous drug use, risk factors not captured in the FRAX model (e.g. frailty, falls, vitamin D deficiency, increased bone turnover, interval significant decline in bone density) and possible under or overestimation of fracture risk by FRAX. Additional medical evaluation for secondary cause of low bone mineral density may be appropriate. FUTURE SCAN RECOMMENDATION: People with diagnosed cases of osteoporosis or at high risk for fracture should have regular bone mineral density tests. For patients eligible for Medicare, routine testing is allowed once every 2 years. The testing frequency can be increased to one year for patients who have rapidly progressing disease, those who are receiving or discontinuing medical therapy to restore bone mass, or have additional risk factors.
== END 2023-10-05 13:58 | disposition home or self-care (01) ==
LOC: HO.MAMMO 13:57
PROVIDERS: PCP Internal Medicine; Visit Provider Internal Medicine Endocrinology, Diabetes & Metabolism
DX: Z12.31 Encounter for screening mammogram for malignant neoplasm of breast (principal); Z13.820 Encounter for screening for osteoporosis; Z78.0 Asymptomatic menopausal state; M81.0 Age-related osteoporosis without current pathological fracture
CPT/HCPCS: 77063; 77067; 77080

== ENCOUNTER → 2023-10-05 13:59 | Outpatient (BNV) | payer MEDICARE, OTHER, MEDICAID, SELFPAY | PROVIDERS: PCP Internal Medicine; Visit Provider Radiology Diagnostic Radiology | DX: Z12.31 Encounter for screening mammogram for malignant neoplasm of breast (principal) | CPT/HCPCS: 77063; 77067 ==

== ENCOUNTER 2023-10-19 14:40 | Outpatient (AMB) | payer MEDICARE, OTHER, MEDICAID, SELFPAY ==
--- NOTE | 2023-10-19 15:04 | AM.OFFVISNUR ---
Intake Intake Visit Reasons: prolia Allergies No Known Allergies Allergy (Verified 09/21/23 08:20) Office Meds Prolia 60 mg/mL subcutaneous syringe Performing Provider: Jayro Devine [place] [facility] [place] Administered by: Clemencia Hampton LPN on 10/19/23 15:04 Dose Route Admin Location Dispensed Lot Number Expiration Date NDC Multimedia Assistant 60 mg subcut Left upper arm 1 mL [id number] 01/20/26 [employer]GEN Coding Assessment & Plan Assessment & Plan Orders: Orders AMB Denosumab Injection Patient Supplied Today M81.0 - Age-related osteoporosis without current pathological fracture Medications: Discontinued denosumab (Prolia) Discontinued Reason: Doctor's Order 60 mg subcut [id number] 1 mL 2RF
== END 2023-10-19 15:01 | disposition home or self-care (01) ==
PROVIDERS: PCP Internal Medicine; Visit Provider Internal Medicine Endocrinology, Diabetes & Metabolism
DX: M81.0 Age-related osteoporosis without current pathological fracture (principal)

== ENCOUNTER → 2023-10-19 14:40 | Outpatient (BNVA) | payer MEDICARE, OTHER, MEDICAID, SELFPAY | PROVIDERS: PCP Internal Medicine; Visit Provider Internal Medicine Endocrinology, Diabetes & Metabolism | DX: M81.0 Age-related osteoporosis without current pathological fracture (principal); Z79.620 Long term (current) use of immunosuppressive biologic | CPT/HCPCS: 96372; J0897 ==

== ENCOUNTER 2023-12-06 15:15 | Outpatient (AMB) | payer MEDICARE, OTHER, MEDICAID, SELFPAY ==
[2023-12-06 15:23] VITALS: BP 134/60; PULSE 77; BMI 23.2
--- NOTE | 2023-12-06 15:23 | A.OFFVIS_ITS ---
Vital Signs 12/06/23 15:23 Height 5 ft 3 in Weight 130 lb 15.273 oz BMI 23.2 BP 134/60 Blood Pressure Location Lt brachial Position Sitting Pulse 77 Intake Visit Reasons: 6 mth f/up Software Engineer Backend Required: Yes Software Engineer Backend Name: [email or web address] Accompanied by: Daughter Allergies No Known Allergies Allergy (Verified 09/21/23 08:20) Medication List - Last Reconciled 12/06/23 by Sabas Mcduffie MD [adult diapers As directed] albuterol sulfate 90 mcg/actuation 2 puffs inhalation Q4-6H PRN 30 days alendronate 70 mg PO QWEEK alprazolam 0.5 mg PO DAILY PRN 6 days amlodipine 5 mg PO DAILY 90 days apixaban (Eliquis) 5 mg PO BID 90 days blood sugar diagnostic TEST 3 TIMES DAILY cholecalciferol (vitamin D3) 25 mcg PO DAILY 90 days commode (bedside commode) As directed dulaglutide (Trulicity) 0.75 mg (0.5 mL) subcut QWEEK 90 days empagliflozin (Jardiance) 10 mg PO DAILY 90 days gabapentin 100 mg PO DAILY 90 days isosorbide mononitrate ER 30 mg PO DAILY 90 days levalbuterol tartrate 45 mcg/actuation (Xopenex HFA) 2 puffs inhalation Q4-6H PRN magnesium oxide 400 mg PO DAILY 90 days metformin 1,000 mg PO BID 90 days metoprolol succinate ER 100 mg PO DAILY 90 days omeprazole 20 mg PO DAILY 90 days rosuvastatin 10 mg PO DAILY 90 days tizanidine 2 mg PO Q8H PRN underpads (Certainty Underpads) Use 1 to 2 times a day walker As directed HPI Comments Details: Pleasant 83-year-old female with history of paroxysmal atrial fibrillation and hypertension here for follow-up. She recently got admitted to [facility] with pneumonia. She was in the hospital for couple days and then went home and started complaining of some chest discomfort and was brought back to the emergency department and was noticed to be in AFib with RVR. She was treated with rate control and appears she did well after that and reverted back to sinus rhythm. In the office she is in sinus rhythm. She is otherwise not complaining of any other issues. No chest discomfort shortness of breath. She had mild chest discomfort when she went in the emergency department. Taking her medications regularly. Blood pressure control is optimal. 01/30/23: She is here for follow-up. She has been doing well. No chest discomfort shortness of breath. No palpitations. She is taking medications regularly. On apixaban for anticoagulation. She is on Toprol XL 100 mg daily. 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 06/07/2023: She returns for follow-up. She has been doing well. No significant palpitations. No chest discomfort or shortness of breath. Taking medications regularly. Blood pressure control is good. 12/06/2023: She returns for follow-up. She has not had any further chest pains. No palpitations. Taking medications regularly. No concern for bleeding. [facility] Medical History (Updated 10/08/23 @ 13:11 by Pam Montoya MD) Left shoulder pain Hyperlipidemia LDL goal <100 Abnormal SPEP Vitamin D deficiency Osteoporosis Age related osteoporosis Physical exam Hypomagnesemia Atrial fibrillation with rapid ventricular response Urinary incontinence Abnormal EKG Screening for osteoporosis Neuropathy Microalbuminuria JONNY (obstructive sleep apnea) Left shoulder pain Anemia GERD (gastroesophageal reflux disease) Coronary artery disease Hypertension Type 2 diabetes mellitus with hyperglycemia Surgical History History of surgery on arm Hx of dilation and curettage Hx of breast biopsy Family History Mother Diabetes mellitus Father No problems noted. Sister Lymphoma Breast cancer Brother Colon cancer Social History Household Members: Family Housing: House Are you a primary resident care spec to a significant other at home: No Do you presently have visiting nurse or other home services: Yes (insurance nurse) Alcohol intake: never Patient Tobacco Use Status: Never used Tobacco e-Cigarette/Vaping Use: Never Used Second Hand Smoke Exposure: No service: No Current occupational status: disabled Cognitive needs: No Hearing needs: No Vision needs: Yes Review of Systems Const Denies chills, Denies fatigue, Denies fever(s), Denies frequent falls, Denies weakness, Denies weight gain and Denies weight loss ENT Denies dizziness Card Denies chest pain, Denies leg edema, Denies lightheadedness, Denies palpitations, Denies dyspnea and Denies dyspnea on exertion Resp Denies cough, Denies dyspnea and Denies dyspnea on exertion GI Denies hematochezia Musc Denies abnormal gait, Denies muscle weakness, Denies numbness, Denies radiating pain into limb and Denies tingling Neuro Denies abnormal gait, Denies dizziness, Denies frequent falls, Denies numbness, Denies tingling and Denies weakness Endo Denies fatigue and Denies palpitations Physical Exam Vital Signs: Last Vital Signs Pulse 77 12/06/23 15:23 BP 134/60 12/06/23 15:23 BMI result Body Mass Index 23.2 GENERAL APPEARANCE: in no acute distress, pleasant. NECK: no carotid bruit, no jugular venous distention. SKIN: no suspicious lesions, warm and dry. HEART: no murmurs, regular rate and rhythm. LUNGS: clear to auscultation bilaterally. ABDOMEN: soft, nontender. EXTREMITIES: no edema. PERIPHERAL PULSES: equal. NEUROLOGIC: No gross deficits, AAO X 3 Office Procedures EKG Details: Sinus rhythm 77 beats per minute, normal axis, right bundle-branch block, QTC 427 milliseconds. [id number], Complete Assessment & Plan Assessment & Plan (1) Hypertension: Code(s): I10 - Essential (primary) hypertension Category: Medical Qualifiers: Hypertension type: essential hypertension Qualified Code(s): I10 - Essential (primary) hypertension (2) Right bundle branch block: Code(s): I45.10 - Unspecified right bundle-branch block Category: Medical (3) PAF (paroxysmal atrial fibrillation): Code(s): I48.0 - Paroxysmal atrial fibrillation Category: Medical Plan Pleasant 83-year-old female who is here for follow-up. Doing well. No chest discomfort or shortness of breath. She had previously experienced chest discomfort while she had AFib with RVR and was in the emergency department. Since AFib has been controlled she has no further chest pains. Overall she is clinically stable. Blood pressure control is good too. Continue medications as before. She will see us back in 6 months. Thank you for allowing me to participate in the care of your patient. Please feel free to contact me if you have any questions. Coding Level of Care Code Est Pt Level 4 (91200) Diagnoses Essential hypertension I10 Hypertension type: essential hypertension Right bundle branch block I45.10 PAF (paroxysmal atrial fibrillation) I48.0 CPT Codes EKG - CPT: 57892-[id number], Complete ([id number])
== END 2023-12-06 15:53 | disposition home or self-care (01) ==
PROVIDERS: PCP Internal Medicine; Visit Provider Internal Medicine Cardiovascular Disease
DX: I10 Essential (primary) hypertension (principal); I45.10 Unspecified right bundle-branch block; I48.0 Paroxysmal atrial fibrillation
CPT/HCPCS: 93010; 99214

== ENCOUNTER → 2023-12-06 15:15 | Outpatient (BNVA) | payer MEDICARE, OTHER, MEDICAID, SELFPAY | PROVIDERS: PCP Internal Medicine; Visit Provider Internal Medicine Cardiovascular Disease | DX: I48.0 Paroxysmal atrial fibrillation (principal); I45.10 Unspecified right bundle-branch block; I10 Essential (primary) hypertension; R94.31 Abnormal electrocardiogram [ECG] [EKG] | CPT/HCPCS: 93005; 99212 ==

== ENCOUNTER 2024-01-12 07:12 | Outpatient (REF) | payer MEDICARE, OTHER, MEDICAID, SELFPAY ==
[2024-01-12 08:29] LABS: Alanine Aminotransferase 10 U/L (0-31); Albumin Level 4.2 g/dL (3.5-5.0); Alkaline Phosphatase 64 U/L (39-117); Anion Gap 13 (12-20); Aspartate Amino Transferase 10 U/L (5-31); Bilirubin Total 0.3 mg/dL (0.0-1.0); Blood Urea Nitrogen 31 mg/dL (9-16); Calcium 9.9 mg/dL (8.4-10.2); Carbon Dioxide 30 mmol/L (22-29); Chloride 106 mmol/L (96-108); Cholesterol 116 mg/dL (<200); Estimated Glomerular Filt Rate 55; Glucose Fasting 120 mg/dL (60-99); HDL Cholesterol 56 mg/dL (>40); LDL Cholesterol Calculated 47 mg/dL (<100); Sodium 144 mmol/L (135-145); Total Protein 7.4 g/dL (6.5-8.0); Triglycerides 65 mg/dL (<150)
[2024-01-12 09:49] LABS: Creatinine Urine 35.56 mg/dL; Microalbum/Creatinine Ratio Ur 525.8 ug/mg cr (<30)
[2024-01-14 22:53] LABS: TS Negative Control Passed; TS Panel A 4; TS Panel B 2; TS Positive Control Passed; TSpotTB Negative (Negative)
== END 2024-01-12 07:13 | disposition home or self-care (01) ==
LOC: HO.LAB 07:12
PROVIDERS: PCP Internal Medicine; Visit Provider Internal Medicine
DX: E78.5 Hyperlipidemia, unspecified (principal); E11.9 Type 2 diabetes mellitus without complications; Z11.1 Encounter for screening for respiratory tuberculosis
CPT/HCPCS: 36415; 80053; 80061; 82043; 82570; 86481

== ENCOUNTER 2024-01-18 16:54 | Outpatient (AMB) | payer MEDICARE, OTHER, MEDICAID, SELFPAY ==
--- NOTE | 2024-01-18 17:06 | A.OFFPC_ITS ---
Vital Signs 01/18/24 17:09 Height 5 ft 3 in Weight 132 lb BMI 23.4 BP 138/50 L Blood Pressure Location Lt brachial Position Sitting Intake Visit Reasons: Physical Exam Intake Note: Patient here for a physical exam Mechanical Intern Required: No Accompanied by: Grand Child Allergies No Known Allergies Allergy (Verified 01/18/24 17:26) Medication List - Last Reconciled 01/18/24 by Pam Montoya MD [adult diapers As directed] albuterol sulfate 90 mcg/actuation 2 puffs inhalation Q4-6H PRN 30 days alendronate 70 mg PO QWEEK alprazolam 0.5 mg PO DAILY PRN 6 days amlodipine 5 mg PO DAILY 90 days apixaban (Eliquis) 5 mg PO BID 90 days blood sugar diagnostic TEST 3 TIMES DAILY cholecalciferol (vitamin D3) 25 mcg PO DAILY 90 days commode (bedside commode) As directed dulaglutide (Trulicity) 0.75 mg (0.5 mL) subcut QWEEK 90 days empagliflozin (Jardiance) 10 mg PO DAILY 90 days gabapentin 100 mg PO DAILY 90 days isosorbide mononitrate ER 30 mg PO DAILY 90 days levalbuterol tartrate 45 mcg/actuation (Xopenex HFA) 2 puffs inhalation Q4-6H PRN magnesium oxide 400 mg PO DAILY 90 days metformin 1,000 mg PO BID 90 days metoprolol succinate ER 100 mg PO DAILY 90 days omeprazole 20 mg PO DAILY 90 days rosuvastatin 10 mg PO DAILY 90 days tizanidine 2 mg PO Q8H PRN underpads (Certainty Underpads) Use 1 to 2 times a day walker As directed Tobacco use date assessed: 09/21/23 Fall risk assessment: No Falls in past year Last assessed Fall Risk: 01/18/24 Dental Screening Dental Screen Date: 09/21/23 HPI HPI Comments History of Present Illness Details This is an 83-year-old female with diabetes mellitus type 2, chronic kidney disease stage 3, COPD and paroxysmal atrial fibrillation that comes for her physical exam. Mammogram done 2023 was normal. Bone DXA scan done 2023 showed osteopenia and this is follow by Endocrinology as well as diabetes. A1c slightly elevated and dietary changes were advised. Chronic kidney disease is follow by Nephrology and has been stable. COPD has also been stable and requires rescue inhaler less than once a month. Paroxysmal atrial fibrillation is follow by cardiology and the goal is heart rate control. Comes accompanied by granddaughter and complains of eye pain occasionally would like to see Ophthalmology. Also has lost a balance and once a walker with break and seat. [facility] Medical History (Updated 01/19/24 @ 07:52 by Pam Montoya MD) Left shoulder pain Hyperlipidemia LDL goal <100 Abnormal SPEP Vitamin D deficiency Osteoporosis Age related osteoporosis Physical exam Hypomagnesemia Atrial fibrillation with rapid ventricular response Urinary incontinence Abnormal EKG Screening for osteoporosis Neuropathy Microalbuminuria JONNY (obstructive sleep apnea) Left shoulder pain Anemia GERD (gastroesophageal reflux disease) Coronary artery disease Hypertension Type 2 diabetes mellitus with hyperglycemia Surgical History History of surgery on arm Hx of dilation and curettage Hx of breast biopsy Family History Mother Diabetes mellitus Father No problems noted. Sister Lymphoma Breast cancer Brother Colon cancer Social History Household Members: Family Housing: House Are you a primary medicare coordinator to a significant other at home: No Do you presently have visiting nurse or other home services: Yes (insurance nurse) Alcohol intake: never Patient Tobacco Use Status: Never used Tobacco e-Cigarette/Vaping Use: Never Used Second Hand Smoke Exposure: No service: No Current occupational status: disabled Cognitive needs: No Hearing needs: No Vision needs: Yes Questionnaire Thrive Questionnaire Date Thrive assessed: 09/21/23 LINDSAY-7 AMB Questionnaire LINDSAY-7 Date LINDSAY - 7 assessed: 09/21/23 Source: Developed by Drs. Jayro Wan, Tara Gutierrez, Bryant Reno and colleagues, with an educational adore from [employer]. Review of Systems Const All systems reviewed & are unremarkable except as noted in HPI and below Card Denies chest pain at rest, Denies chest pain with activity, Denies edema, Denies irregular heart rhythm, Denies claudication, Denies dyspnea, Denies dyspnea on exertion, Denies orthopnea, Denies paroxysmal nocturnal dyspnea and Denies slow heart rate Resp Denies cough, Denies dyspnea and Denies dyspnea on exertion GI Denies abdominal pain, Denies change in bowel habits, Denies excessive flatus, Denies nausea and Denies vomiting Denies urinary incontinence, Denies urinary hesitancy and Denies urinary urgency Musc Denies abnormal gait, Denies atrophy, Denies deformity and Denies limited range of motion Skin/Breast Denies bleeding lesions, Denies changing lesions and Denies rash Neuro Denies abnormal gait and Denies lack of coordination Physical exam (Primary Care) Vital Signs: Last Vital Signs BP 138/50 L 01/18/24 17:09 BMI result Body Mass Index 23.4 Tobacco/Smoking Status: Tobacco use Status Tobacco use date assessed 09/21/23 01/18/24 17:07 Patient Tobacco Use Status Never used Tobacco 01/18/24 17:07 e-Cigarette/Vaping Use Never Used 01/18/24 17:07 Thrive Assessment: Date of Thrive Assessment Date Thrive assessed 09/21/23 01/18/24 17:07 Const Orientation/consciousness: patient oriented x3 HENMT Head: Yes normal to inspection, Yes normocephalic and Yes atraumatic Ears: external ears normal Eyes General: appearance normal, both eyes and all related structures Eyelids: Yes eyelids normal Conjunctivae: conjunctivae normal Neck Neck: Yes normal visual inspection and Yes supple Resp Effort & Inspection: normal respiratory effort Auscultation: clear to auscultation bilaterally Cardio Jugular venous distension: no JVD Rate: regular rate Rhythm: regular rhythm Heart sounds: S1 normal heart sound present and S2 normal heart sound present GI Inspection: Yes normal to inspection Palpation (GI): Soft to palpation and nontender Auscultation: normal bowel sounds Skin General skin exam: no rashes or lesions noted Neuro General: patient oriented x3 and no focal motor deficits Extrem General: Yes full ROM Psych Appearance: grossly normal Results AMB Hemoglobin A1c AMB Hemoglobin A1c 7.8 % Last Edit by JIM Mcneill on 01/18/24 17:1 9 Results Reviewed Results Reviewed: Laboratory Last Values Hgb A1c (Clinic) 7.8 % (4.0-6.0) H 01/18/24 17:05 Assessment and Plan Assessment & Plan (1) Physical exam: Code(s): Z00.00 - Encounter for general adult medical examination without abnormal findings Plan: Repeat in a year. (2) CKD (chronic kidney disease) stage 3, GFR 30-59 ml/min: Code(s): N18.30 - Chronic kidney disease, stage 3 unspecified Qualifiers: Chronic kidney disease stage 3 subtype: stage 3a (GFR 45-59) Qualified Code(s): N18.31 - Chronic kidney disease, stage 3a Plan: Avoid NSAIDs. Follow-up with nephrology. (3) Type 2 diabetes mellitus with hyperglycemia: Code(s): E11.65 - Type 2 diabetes mellitus with hyperglycemia Qualifiers: Diabetes mellitus residential insulin use: without drilling plant operator use Qualified Code(s): E11.65 - Type 2 diabetes mellitus with hyperglycemia Plan: Continue Jardiance. A1c goal is equal or less than 7%. (4) COPD (chronic obstructive pulmonary disease): Comment: Follow by pulmonology Dr. Gee Code(s): J44.9 - Chronic obstructive pulmonary disease, unspecified Plan: Use rescue inhaler as needed. Follow with pulmonology. (5) PAF (paroxysmal atrial fibrillation): Code(s): I48.0 - Paroxysmal atrial fibrillation Plan: Continue Eliquis. The goal is heart rate control. (6) Eye pain: Code(s): H57.10 - Ocular pain, unspecified eye Qualifiers: Laterality: left Qualified Code(s): H57.12 - Ocular pain, left eye Plan: Referred to Ophthalmology. (7) Loss of balance: Code(s): R26.89 - Other abnormalities of gait and mobility Plan: Walker ordered. Orders: Orders AMB Hemoglobin A1c 01/18/24 E11.65 - Type 2 diabetes mellitus with hyperglycemia Lipid Panel 4 Months E78.5 - Hyperlipidemia, unspecified Comprehensive [place]. Panel Fast 4 Months I48.0 - Paroxysmal atrial fibrillation Microalbumin, Random (w Creat) 4 Months E11.9 - Type 2 diabetes mellitus without complications Referrals Ophthalmology Referral H57.10 - Ocular pain, unspecified eye Medications: Changed From walker As directed 1 ea 0RF G62.9 - Polyneuropathy, unspecified, M81.0 - Age-related osteoporosis without current pathological fracture, R26.89 - Other abnormalities of gait and mobility To walker with brakes and seat 1 ea 0RF G62.9 - Polyneuropathy, unspecified, M81.0 - Age-related osteoporosis without current pathological fracture, R26.89 - Other abnormalities of gait and mobility Coding Level of Care Code Est Pt Level 3 (50901) Est Pt Prev Care >65y(32840) Diagnoses Physical exam Z00.00 Stage 3a chronic kidney disease N18.31 Chronic kidney disease stage 3 subtype: stage 3a (GFR 45-59) Type 2 diabetes mellitus with hyperglycemia, without long-term current use of insulin E11.65 Diabetes mellitus drilling plant operator insulin use: without drilling plant operator use COPD (chronic obstructive pulmonary disease) J44.9 PAF (paroxysmal atrial fibrillation) I48.0 Pain of left eye H57.12 Laterality: left Loss of balance R26.89 Time Spent (min) 35
[2024-01-18 17:09] VITALS: BP 138/50; BMI 23.4
== END 2024-01-18 17:34 | disposition home or self-care (01) ==
PROVIDERS: PCP Internal Medicine; Visit Provider Internal Medicine
DX: E11.65 Type 2 diabetes mellitus with hyperglycemia (principal)
CPT/HCPCS: 83036; 99397

== ENCOUNTER 2024-02-09 06:30 | Outpatient (REF) | payer MEDICARE, OTHER, MEDICAID, SELFPAY ==
[2024-02-09 07:59] LABS: Appearance Urine Clear; Color Urine Yellow; Glucose Urine UA >=1000 mg/dL (Negative); Leukocyte Esterase Urine Negative (Negative); Nitrite Urine Negative (Negative); PH 7.5 (5.0-9.0); UMIC TRIGGER UACC YES; Urine Blood Negative (Negative); Urine Ketones Negative (Negative); Urine Protein 30 (1+) mg/dL (Neg-Trace)
[2024-02-09 08:04] LABS: Bacteria Urine 2+ (None Seen); Hyaline Casts Urine 0-2 /LPF (0-2); RBC Urine 0-2 /HPF (0-2); Squamous Epithelial Cell Urine 0-2 /HPF (0-2); WBC Urine 0-5 /HPF (0-5)
== END 2024-02-09 06:31 | disposition home or self-care (01) ==
LOC: HO.LAB 06:30
PROVIDERS: PCP Internal Medicine; Visit Provider Internal Medicine
DX: R82.90 Unspecified abnormal findings in urine (principal)
CPT/HCPCS: 81001

== ENCOUNTER 2024-02-13 07:00 | Outpatient (REF) | payer MEDICARE, OTHER, MEDICAID, SELFPAY ==
[2024-02-13 09:07] LABS: Appearance Urine Clear; Color Urine Yellow; Glucose Urine UA 500 mg/dL (Negative); Leukocyte Esterase Urine Moderate (2+) (Negative); Nitrite Urine Negative (Negative); UMIC TRIGGER UACC YES; Urine Blood Negative (Negative); Urine Ketones Negative (Negative); Urine Protein 30 (1+) mg/dL (Neg-Trace)
[2024-02-13 09:10] LABS: Bacteria Urine 4+ (None Seen); Hyaline Casts Urine 0-2 /LPF (0-2); RBC Urine 0-2 /HPF (0-2); Squamous Epithelial Cell Urine 0-2 /HPF (0-2); UACC Culture Trigger YES; WBC Urine >50 /HPF (0-5)
== END 2024-02-13 07:01 | disposition home or self-care (01) ==
LOC: HO.LAB 07:00
PROVIDERS: PCP Internal Medicine; Visit Provider Internal Medicine
DX: R30.0 Dysuria (principal); R39.9 Unspecified symptoms and signs involving the genitourinary system
CPT/HCPCS: 81001; 81003; 87086; 87088; 87186

== ENCOUNTER 2024-03-02 08:07 | Outpatient (REF) | payer MEDICARE, OTHER, MEDICAID, SELFPAY ==
[2024-03-02 08:52] LABS: Calcium 9.9 mg/dL (8.4-10.2)
== END 2024-03-02 08:08 | disposition home or self-care (01) ==
LOC: HO.LAB 08:07
PROVIDERS: PCP Internal Medicine; Visit Provider Internal Medicine Endocrinology, Diabetes & Metabolism
DX: M81.0 Age-related osteoporosis without current pathological fracture (principal)
CPT/HCPCS: 36415; 82310

== ENCOUNTER 2024-03-06 14:43 | Outpatient (AMB) | payer MEDICARE, OTHER, MEDICAID, SELFPAY ==
--- NOTE | 2024-03-06 14:45 | MHC.OFFVIS ---
Vital Signs 03/06/24 14:46 Height 5 ft 3 in Weight 134 lb 14.766 oz BMI 23.9 BP 154/48 H Blood Pressure Location Lt brachial Position Sitting Pulse 68 Pulse Source Pulse Oximeter Intake Visit Reasons: Osteoporosis-confirmed Intake Note: Patient present today for Osteoporosis. Procurement Officer Required: Yes Procurement Officer Language: Pediatric Intensive Physician Services: Procurement Officer Present Procurement Officer Name: Jaron [id number] Information Interpreted: non-clinical & clinical Accompanied by: Daughter Allergies No Known Allergies Allergy (Verified 03/06/24 14:56) Medication List - Last Reconciled 03/06/24 by Jayro Devine MD [adult diapers As directed] albuterol sulfate 90 mcg/actuation 2 puffs inhalation Q4-6H PRN 30 days alendronate 70 mg PO QWEEK alprazolam 0.5 mg PO DAILY PRN 6 days amlodipine 5 mg PO DAILY 90 days apixaban (Eliquis) 5 mg PO BID 90 days blood sugar diagnostic TEST 3 TIMES DAILY cholecalciferol (vitamin D3) 25 mcg PO DAILY 90 days commode (bedside commode) As directed dulaglutide (Trulicity) 0.75 mg (0.5 mL) subcut QWEEK 90 days empagliflozin (Jardiance) 10 mg PO DAILY 90 days gabapentin 100 mg PO DAILY 90 days isosorbide mononitrate ER 30 mg PO DAILY 90 days levalbuterol tartrate 45 mcg/actuation (Xopenex HFA) 2 puffs inhalation Q4-6H PRN magnesium oxide 400 mg PO DAILY 90 days metformin 1,000 mg PO BID 90 days metoprolol succinate ER 100 mg PO DAILY 90 days nitrofurantoin macrocrystal 100 mg PO BID 5 days omeprazole 20 mg PO DAILY 90 days rosuvastatin 10 mg PO DAILY 90 days tizanidine 2 mg PO Q8H PRN underpads (Certainty Underpads) Use 1 to 2 times a day walker with brakes and seat HPI Comments Details: 83 YO Female with PMHx Osteoporosis, DM2, CKD Stage 3, AFib on chronic AC with eliquis who is seen in F/U for Osteoporosis. First diagnosed in 2021 with her first DXA. She began treatment for her Osteoporosis with Prolia with her first injection 04/04/2022. After her initial visit we completed a biochemical assessment for secondary causes of Osteoporosis, which did reveal an abnormal SPEP. She was referred to Heme-Onc and underwent additional testing, and per Heme-Onc no evidence of multiple myeloma or MGUS. No history of pathologic fracture or ONJ. Has 0-1 servings of dietary calcium per day in the form of milk and cheese. Takes Calcium citrate 600 mg PO BID. She takes Vitamin D 1000 IU daily. Uses PPI daily and also anticoagulant eliquis since June 2021. Denies ever using antiepileptic or glucocorticoid medication. Does no scheduled exercise. Fracture history: Fractured her R shoulder in 2011 in [place], this was traumatic. Height loss: Has lost 1 inch in height PATIENT CARE ASSISTANT history: Menarche was age 15. Menses was regular. . Breastfed for 9-12 months in total. Menopause was age 49. She did not use HRT. Denies a history of Kidney stones. Denies a family history of Osteoporosis or hip fracture. UTD on dental cleanings and sees dentist every 6 months. No planned upcoming dental work or extractions. DXA: 09/01/2021 FINDINGS: AP SPINE L1-L4: BMD 0.934 g/cm2, Z-score -0.1, T-score -2.0, osteopenia. LEFT FEMUR, NECK: BMD 0.694 g/cm2, Z-score -0.2, T-score -2.5, osteoporosis. LEFT FEMUR, TOTAL: BMD 0.858 g/cm2, Z-score 1.0, T-score -1.2, osteopenia. Labs: Laboratory Tests 10/03/22 10/03/22 10/03/22 15:43 15:45 15:45 Creatinine 1.15 Estimated GFR 45 N-Telopeptide X-linked 19 25-OH Vitamin D Total 33.3 PTH Intact 44 Calcium (PTH Intact) 10.1 Currently on Prolia since 04/14 . No fx in back or hip [facility] Medical History (Updated 01/25/24 @ 11:29 by Pam Montoya MD) Left shoulder pain Hyperlipidemia LDL goal <100 Abnormal SPEP Vitamin D deficiency Osteoporosis Age related osteoporosis Physical exam Hypomagnesemia Atrial fibrillation with rapid ventricular response Urinary incontinence Abnormal EKG Screening for osteoporosis Neuropathy Microalbuminuria JONNY (obstructive sleep apnea) Left shoulder pain Anemia GERD (gastroesophageal reflux disease) Coronary artery disease Hypertension Type 2 diabetes mellitus with hyperglycemia Surgical History History of surgery on arm Hx of dilation and curettage Hx of breast biopsy Family History Mother Diabetes mellitus Father No problems noted. Sister Lymphoma Breast cancer Brother Colon cancer Social History Household Members: Family Housing: House Are you a primary manager of care to a significant other at home: No Do you presently have visiting nurse or other home services: Yes (insurance nurse) Alcohol intake: never Patient Tobacco Use Status: Never used Tobacco e-Cigarette/Vaping Use: Never Used Second Hand Smoke Exposure: No service: No Current occupational status: disabled Cognitive needs: No Hearing needs: No Vision needs: Yes Physical Exam Vital Signs: Last Vital Signs Pulse 68 03/06/24 14:46 BP 154/48 H 03/06/24 14:46 BMI result Body Mass Index 23.9 Assessment & Plan Assessment & Plan (1) Osteoporosis: Code(s): M81.0 - Age-related osteoporosis without current pathological fracture Category: Medical Plan: This 83-year-old female with a history of osteoporosis and negative secondary workup currently being treated with Prolia since 04/04/2022. Receive last Prolia injection 10/19/2023 We will transition to alendronate 70 mg Q weekly on 04/20/2024 and check urine NTX 3 months later . Assuming bone turnover markers suppressed we will give alendronate for full year Orders: Orders Collagen Crosslinks NTX Today M81.0 - Age-related osteoporosis without current pathological fracture Coding Level of Care Code Est Pt Level 3 (89506) Diagnoses Osteoporosis M81.0
[2024-03-06 14:46] VITALS: BP 154/48; PULSE 68; BMI 23.9
== END 2024-03-06 15:10 | disposition home or self-care (01) ==
PROVIDERS: PCP Internal Medicine; Visit Provider Internal Medicine Endocrinology, Diabetes & Metabolism
DX: M81.0 Age-related osteoporosis without current pathological fracture (principal)
CPT/HCPCS: 99213

== ENCOUNTER → 2024-03-06 14:43 | Outpatient (BNVA) | payer MEDICARE, OTHER, MEDICAID, SELFPAY | PROVIDERS: PCP Internal Medicine; Visit Provider Internal Medicine Endocrinology, Diabetes & Metabolism | DX: M81.0 Age-related osteoporosis without current pathological fracture (principal); E11.22 Type 2 diabetes mellitus with diabetic chronic kidney disease; N18.30 Chronic kidney disease, stage 3 unspecified; I48.91 Unspecified atrial fibrillation; Z79.01 Long term (current) use of anticoagulants | CPT/HCPCS: 99212 ==

== ENCOUNTER 2024-04-13 07:20 | Outpatient (REF) | payer MEDICARE, OTHER, MEDICAID, SELFPAY ==
[2024-04-18 16:12] LABS: N-Telopeptide 27 (see note); NTXCreaRU 29 mg/dL (20-275)
== END 2024-04-13 07:21 | disposition home or self-care (01) ==
LOC: HO.LAB 07:20
PROVIDERS: PCP Internal Medicine; Visit Provider Internal Medicine Endocrinology, Diabetes & Metabolism
DX: M81.0 Age-related osteoporosis without current pathological fracture (principal)
CPT/HCPCS: 82523

== ENCOUNTER 2024-06-03 06:46 | Outpatient (REF) | payer MEDICARE, OTHER, MEDICAID, SELFPAY ==
[2024-06-03 07:52] LABS: Appearance Urine Clear; Color Urine Yellow; Glucose Urine UA 500 mg/dL (Negative); Leukocyte Esterase Urine Small (1+) (Negative); Nitrite Urine Negative (Negative); UMIC TRIGGER UACC YES; Urine Blood Negative (Negative); Urine Ketones Negative (Negative); Urine Protein 30 (1+) mg/dL (Neg-Trace)
[2024-06-03 07:58] LABS: Bacteria Urine 4+ (None Seen); Hyaline Casts Urine 0-2 /LPF (0-2); RBC Urine 0-2 /HPF (0-2); Squamous Epithelial Cell Urine 0-2 /HPF (0-2); UACC Culture Trigger YES; WBC Urine 21-50 /HPF (0-5)
[2024-06-03 07:58] LABS: Alanine Aminotransferase 13 U/L (0-31); Alkaline Phosphatase 83 U/L (39-117); Anion Gap 15 (12-20); Aspartate Amino Transferase 13 U/L (5-31); Bilirubin Total 0.3 mg/dL (0.0-1.0); Blood Urea Nitrogen 21 mg/dL (9-16); Calcium 8.9 mg/dL (8.4-10.2); Carbon Dioxide 27 mmol/L (22-29); Chloride 106 mmol/L (96-108); Cholesterol 115 mg/dL (<200); Estimated Glomerular Filt Rate 49; Glucose Fasting 127 mg/dL (60-99); HDL Cholesterol 60 mg/dL (>40); LDL Cholesterol Calculated 42 mg/dL (<100); Potassium 4.5 mmol/L (3.3-5.1); Sodium 143 mmol/L (135-145); Total Protein 7.1 g/dL (6.5-8.0); Triglycerides 66 mg/dL (<150)
[2024-06-03 08:06] LABS: Creatinine Urine 29.98 mg/dL; Microalbum/Creatinine Ratio Ur 610.4 ug/mg cr (<30)
[2024-06-06 05:09] LABS: TS Negative Control Passed; TS Panel A 3; TS Panel B 3; TS Positive Control Passed; TSpotTB Negative (Negative)
== END 2024-06-03 06:47 | disposition home or self-care (01) ==
LOC: HO.LAB 06:46
PROVIDERS: PCP Internal Medicine; Visit Provider Internal Medicine
DX: I48.0 Paroxysmal atrial fibrillation (principal); E11.9 Type 2 diabetes mellitus without complications; E78.5 Hyperlipidemia, unspecified; Z11.1 Encounter for screening for respiratory tuberculosis; R39.9 Unspecified symptoms and signs involving the genitourinary system
CPT/HCPCS: 36415; 80053; 80061; 81001; 82043; 82570; 86481; 87086; 87147

== ENCOUNTER 2024-06-06 15:30 | Outpatient (AMB) | payer MEDICARE, OTHER, MEDICAID, SELFPAY ==
[2024-06-06 15:43] VITALS: BP 132/80; BMI 24.1
--- NOTE | 2024-06-06 15:43 | MHC.PC.OV ---
Vital Signs 06/06/24 15:43 Height 5 ft 3 in Weight 136 lb BMI 24.1 BP 132/80 Blood Pressure Location Lt brachial Position Sitting Intake Visit Reasons: 4 month - see comments Intake Note: Patient here for a 4 month follow up Order Desk Caller Required: No Accompanied by: Daughter Allergies No Known Allergies Allergy (Verified 06/06/24 16:05) Medication List - Last Reconciled 06/06/24 by Pam Montoya MD [adult diapers As directed] albuterol sulfate 90 mcg/actuation 2 puffs inhalation Q4-6H PRN 30 days alendronate 70 mg PO QWEEK alprazolam 0.5 mg PO DAILY PRN 6 days amlodipine 5 mg PO DAILY 90 days apixaban (Eliquis) 5 mg PO BID 90 days blood sugar diagnostic TEST 3 TIMES DAILY cholecalciferol (vitamin D3) 25 mcg PO DAILY 90 days commode (bedside commode) As directed dulaglutide (Trulicity) 1.5 mg (0.5 mL) subcut QWEEK 90 days empagliflozin (Jardiance) 10 mg PO DAILY 90 days gabapentin 100 mg PO DAILY 90 days isosorbide mononitrate ER 30 mg PO DAILY 90 days levalbuterol tartrate 45 mcg/actuation (Xopenex HFA) 2 puffs inhalation Q4-6H PRN magnesium oxide 400 mg PO DAILY 90 days metformin 1,000 mg PO BID 90 days metoprolol succinate ER 100 mg PO DAILY 90 days omeprazole 20 mg PO DAILY 90 days rosuvastatin 10 mg PO DAILY 90 days tizanidine 2 mg PO Q8H PRN underpads (Certainty Underpads) Use 1 to 2 times a day walker with brakes and seat Tobacco use date assessed: 09/21/23 Fall risk assessment: No Falls in past year Last assessed Fall Risk: 06/06/24 Dental Screening Dental Screen Date: 06/06/24 Did you have a dental visit in the last 12 months?: No Did you have a dental problem in the last 6 months where you did not have access to dental care?: No Was dental information given to patient?: Patient has dentist HPI HPI Comments History of Present Illness Details This is an 83-year-old female with diabetes mellitus type 2, hypertension, hyperlipidemia, paroxysmal atrial fibrillation, COPD and chronic kidney disease stage 3 that comes today for follow-up on her conditions. A1c within goal being 7% today. Blood pressure stable. LDL within goal being less than 70. On chronic anticoagulation for atrial fibrillation which is follow by cardiology and the goal is heart rate control. COPD stable with long-acting inhaler and use rescue inhaler less than 2 times a month. Denies any chest pain or shortness on breath. She was advised by me to take Eliquis once a day due to hematuria but last urinalysis showed no hematuria therefore I told her to restart Eliquis twice a day. [facility] Medical History (Updated 06/07/24 @ 17:32 by Pam Montoya MD) Left shoulder pain Hyperlipidemia LDL goal <100 Abnormal SPEP Vitamin D deficiency Osteoporosis Age related osteoporosis Physical exam Hypomagnesemia Atrial fibrillation with rapid ventricular response Urinary incontinence Abnormal EKG Screening for osteoporosis Neuropathy Microalbuminuria JONNY (obstructive sleep apnea) Left shoulder pain Anemia GERD (gastroesophageal reflux disease) Coronary artery disease Hypertension Type 2 diabetes mellitus with hyperglycemia Surgical History History of surgery on arm Hx of dilation and curettage Hx of breast biopsy Family History Mother Diabetes mellitus Father No problems noted. Sister Lymphoma Breast cancer Brother Colon cancer Social History Household Members: Family Housing: House Are you a primary acute care occupational therapist to a significant other at home: No Do you presently have visiting nurse or other home services: Yes (insurance nurse) Alcohol intake: never Patient Tobacco Use Status: Never used Tobacco e-Cigarette/Vaping Use: Never Used Second Hand Smoke Exposure: No service: No Current occupational status: disabled Cognitive needs: No Hearing needs: No Vision needs: Yes Questionnaire Thrive Questionnaire Date Thrive assessed: 09/21/23 LINDSAY-7 AMB Questionnaire LINDSAY-7 Date LINDSAY - 7 assessed: 09/21/23 Source: Developed by Drs. Jayro Wan, Tara Gutierrez, Bryant Reno and colleagues, with an educational adore from [employer]. Review of Systems Const All systems reviewed & are unremarkable except as noted in HPI and below Card Denies chest pain at rest, Denies chest pain with activity, Denies edema, Denies irregular heart rhythm, Denies claudication, Denies dyspnea, Denies dyspnea on exertion, Denies orthopnea, Denies paroxysmal nocturnal dyspnea and Denies slow heart rate Resp Denies cough, Denies dyspnea and Denies dyspnea on exertion Physical exam (Primary Care) Vital Signs: Last Vital Signs BP 132/80 06/06/24 15:43 BMI result Body Mass Index 24.1 Tobacco/Smoking Status: Tobacco use Status Tobacco use date assessed 09/21/23 06/06/24 15:45 Patient Tobacco Use Status Never used Tobacco 06/06/24 15:45 e-Cigarette/Vaping Use Never Used 06/06/24 15:45 Thrive Assessment: Date of Thrive Assessment Date Thrive assessed 09/21/23 06/06/24 15:45 Resp Effort & Inspection: normal respiratory effort Auscultation: clear to auscultation bilaterally Cardio Jugular venous distension: no JVD Rate: regular rate Rhythm: regular rhythm Heart sounds: S1 normal heart sound present and S2 normal heart sound present Extrem General: Yes full ROM Office Procedures Flu Questionnaire Does the patient have a severe egg allergy?: No Results AMB Hemoglobin A1c AMB Hemoglobin A1c 7.0 % Last Edit by JIM Mcneill on 06/06/24 16:10 Immunizations Fluarix Triv [id number] (PF) 45 mcg (15 mcg x 3)/0.5 mL IM syringe Performing Provider: Pam Montoya MD Performing Location: [facility] Documented (not given) by: JIM Mcneill on 06/06/24 15:50 Reason Not Given: Patient Refused Results Reviewed Results Reviewed: Laboratory Last Values Hgb A1c (Clinic) 7.0 % (4.0-6.0) H 06/06/24 15:42 Coding Level of Care Code Est Pt Level 4 (13238) Complex EM visit Add On G2211 Diagnoses COPD (chronic obstructive pulmonary disease) J44.9 PAF (paroxysmal atrial fibrillation) I48.0 Stage 3a chronic kidney disease N18.31 Chronic kidney disease stage 3 subtype: stage 3a (GFR 45-59) Type 2 diabetes mellitus with hyperglycemia, without long-term current use of insulin E11.65 Diabetes mellitus correction insulin use: without intermediate school teacher use Essential hypertension I10 Hypertension type: essential hypertension Hyperlipidemia LDL goal <70 E78.5 Time Spent (min) 25 Assessment & Plan Assessment & Plan (1) COPD (chronic obstructive pulmonary disease): Comment: Follow by pulmonology Dr. Gee Code(s): J44.9 - Chronic obstructive pulmonary disease, unspecified Category: Medical Plan: Continue long-acting inhaler. Use rescue inhaler as needed. (2) PAF (paroxysmal atrial fibrillation): Code(s): I48.0 - Paroxysmal atrial fibrillation Category: Medical Plan: Continue metoprolol. Restart Eliquis twice a day. Follow-up with Cardiology. The goal is heart rate control. (3) CKD (chronic kidney disease) stage 3, GFR 30-59 ml/min: Code(s): N18.30 - Chronic kidney disease, stage 3 unspecified Category: Medical Qualifiers: Chronic kidney disease stage 3 subtype: stage 3a (GFR 45-59) Qualified Code(s): N18.31 - Chronic kidney disease, stage 3a Plan: Avoid NSAIDs. Keep blood pressure within goal. (4) Type 2 diabetes mellitus with hyperglycemia: Code(s): E11.65 - Type 2 diabetes mellitus with hyperglycemia Category: Medical Qualifiers: Diabetes mellitus intermediate school teacher insulin use: without intermediate school teacher use Qualified Code(s): E11.65 - Type 2 diabetes mellitus with hyperglycemia Plan: Continue Trulicity, Jardiance and metformin. A1c goal is equal or less than 7%. (5) Hypertension: Code(s): I10 - Essential (primary) hypertension Category: Medical Qualifiers: Hypertension type: essential hypertension Qualified Code(s): I10 - Essential (primary) hypertension Plan: Continue amlodipine. Blood pressure goal is equal or less than 130/80. (6) Hyperlipidemia LDL goal <70: Code(s): E78.5 - Hyperlipidemia, unspecified Category: Medical Plan: Continue statins. Continue low-cholesterol diet. LDL goal is less than 70. Orders: Orders Influenza [id number] Immunization 06/06/24 Z23 - Encounter for immunization Vitamin D 25-OH Total 4 Months E55.9 - Vitamin D deficiency, unspecified AMB Hemoglobin A1c 06/06/24 E11.65 - Type 2 diabetes mellitus with hyperglycemia Lipid Panel 4 Months E78.5 - Hyperlipidemia, unspecified Microalbumin, Random (w Creat) 4 Months R80.9 - Proteinuria, unspecified Comprehensive [place]. Panel Fast 4 Months N18.31 - Chronic kidney disease, stage 3a Medications: New cane As directed 1 ea 0RF G62.9 - Polyneuropathy, unspecified, R26.89 - Other abnormalities of gait and mobility
== END 2024-06-06 16:23 | disposition home or self-care (01) ==
PROVIDERS: PCP Internal Medicine; Visit Provider Internal Medicine
DX: J44.9 Chronic obstructive pulmonary disease, unspecified (principal); I48.0 Paroxysmal atrial fibrillation; N18.31 Chronic kidney disease, stage 3a; E11.65 Type 2 diabetes mellitus with hyperglycemia; I10 Essential (primary) hypertension; E78.5 Hyperlipidemia, unspecified

== ENCOUNTER → 2024-06-06 15:30 | Outpatient (BNVA) | payer MEDICARE, OTHER, MEDICAID, SELFPAY | PROVIDERS: PCP Internal Medicine; Visit Provider Internal Medicine | DX: J44.9 Chronic obstructive pulmonary disease, unspecified (principal); I48.0 Paroxysmal atrial fibrillation; E11.65 Type 2 diabetes mellitus with hyperglycemia; I12.9 Hypertensive chronic kidney disease with stage 1 through stage 4 chronic kidney disease, or unspecified chronic kidney disease; E11.22 Type 2 diabetes mellitus with diabetic chronic kidney disease; N18.31 Chronic kidney disease, stage 3a; E78.5 Hyperlipidemia, unspecified | CPT/HCPCS: 83036; 90471; 99212 ==

== ENCOUNTER 2024-06-24 12:58 | Outpatient (AMB) | payer MEDICARE, OTHER, MEDICAID, SELFPAY ==
--- NOTE | 2024-06-24 14:48 | MHC.OFFWIV ---
Intake Vital Signs 06/24/24 14:49 Height 5 ft 3 in Weight 137 lb BMI 24.3 BP 110/62 Blood Pressure Location Rt brachial Position Sitting Pulse 91 Pulse Source Pulse Oximeter Temp 98.2 F Temp Source Oral Pulse Oximetry (%) 95 Oxygen Delivery Method Room Air Intake Visit Reasons: EP cough, congestion Intake Note: Patient here for cough, chest congestion, fevers, slight sob and wheezing that has been present for 8 days. Patient Tobacco Use Status: Never used Tobacco Allergies No Known Allergies Allergy (Verified 06/24/24 14:57) Do you need a note to return to daycare/school/sports/work: No HPI HPI Comments History of Present Illness Details Patient is an 83-year-old female with diabetes mellitus type 2, hypertension, hyperlipidemia, paroxysmal atrial fibrillation, COPD and chronic kidney disease stage 3 that comes today complaining of 8 days of a productive cough with white mucus, wheezing and shortness of breath. She is here with her daughter who is interpreting for her. She denies any fevers, headaches, sinus pain or ear pain. Her daughter tells me she has had multiple rounds of pneumonia and usually needs 2 antibiotics to clear her pneumonia. She had a recent hospitalization last winter for bilateral pneumonia. [facility] Medical History (Updated 06/24/24 @ 15:15 by Cristlea Marks PA-C) Left shoulder pain Hyperlipidemia LDL goal <100 Abnormal SPEP Vitamin D deficiency Osteoporosis Age related osteoporosis Physical exam Hypomagnesemia Atrial fibrillation with rapid ventricular response Urinary incontinence Abnormal EKG Screening for osteoporosis Neuropathy Microalbuminuria JONNY (obstructive sleep apnea) Left shoulder pain Anemia GERD (gastroesophageal reflux disease) Coronary artery disease Hypertension Type 2 diabetes mellitus with hyperglycemia Surgical History History of surgery on arm Hx of dilation and curettage Hx of breast biopsy Family History Mother Diabetes mellitus Father No problems noted. Sister Lymphoma Breast cancer Brother Colon cancer Social History Household Members: Family Housing: House Are you a primary landcare officer to a significant other at home: No Do you presently have visiting nurse or other home services: Yes (insurance nurse) Alcohol intake: never Patient Tobacco Use Status: Never used Tobacco e-Cigarette/Vaping Use: Never Used Second Hand Smoke Exposure: No service: No Current occupational status: disabled Cognitive needs: No Hearing needs: No Vision needs: Yes Review of Systems Const All systems reviewed & are unremarkable except as noted in HPI and below Physical Exam Vital Signs: Last Vital Signs Temp 98.2 F 06/24/24 14:49 Pulse 91 06/24/24 14:49 BP 110/62 06/24/24 14:49 Pulse Ox 95 06/24/24 14:49 Oxygen Delivery Method Room Air 06/24/24 14:49 BMI result Body Mass Index 24.3 Const General: cooperative, healthy appearing, comfortable and no acute distress Orientation/consciousness: patient oriented x3 Limitations: no limitations HEENT Head: Yes normal to inspection Ears: hearing grossly normal bilaterally, external ears normal and TM's normal bilaterally General nose exam: Normal external nose present, Normal nares present and No nasal discharge present Face and sinus: Yes normal facial exam and Yes sinuses nontender Mouth: Normal oral and palatal mucosa present and moist mucous membranes Throat: Yes tonsils normal, Yes uvula midline and Yes posterior oropharynx abnormal (Erythema) Eyes General: appearance normal, both eyes and all related structures Neck Neck: Yes normal visual inspection Resp Effort & Inspection: normal respiratory effort, able to speak in complete sentences, no respiratory distress, not tachypneic, no tripod positioning and no use of accessory muscles Auscultation: no crackles, no rales, no rhonchi, no wheezes and diminished lung sounds Cardio Rate: regular rate Rhythm: regular rhythm Heart sounds: normal S1 and S2 Skin General skin exam: no rashes or lesions noted Neuro General: patient oriented x3 Extrem General: Yes normal to inspection and Yes no clubbing, cyanosis or edema Assessment & Plan Assessment & Plan (1) URI (upper respiratory infection): Code(s): J06.9 - Acute upper respiratory infection, unspecified Qualifiers: URI type: unspecified URI Qualified Code(s): J06.9 - Acute upper respiratory infection, unspecified Plan: Vital signs are stable, patient well-appearing, lung sounds are clear but dim. We will send a Z-Sandoval for the anti-inflammatory effects as well as Tessalon Perles. We tested for flu COVID and RSV and I will have the patient get a chest x-ray today to rule out a pneumonia. If they do have pneumonia, I will send a 2nd antibiotic to her pharmacy. She tells me she has plenty of inhalers. Orders: Orders SARS-CoV2/FLU/RSV Today J06.9 - Acute upper respiratory infection, unspecified XR chest 2V Today R05.9 - Cough, unspecified Medications: New azithromycin For 250 mg dose pack: take 500 mg today (day 1), then 250 mg for 4 days (days 2-5) PO 6 tabs 0RF benzonatate 200 mg PO TID PRN 14 caps 0RF cough Coding Level of Care Code Est Pt Level 4 (73055) Diagnoses Upper respiratory tract infection, unspecified type J06.9 URI type: unspecified URI
[2024-06-24 14:49] VITALS: BP 110/62; PULSE 91; TEMP 36.8; O2SAT 95; BMI 24.3
== END 2024-06-24 15:36 | disposition home or self-care (01) ==
PROVIDERS: PCP Internal Medicine; Visit Provider Physician Assistant
DX: J06.9 Acute upper respiratory infection, unspecified (principal)

== ENCOUNTER 2024-06-24 12:58 | Outpatient (REF) | payer MEDICARE, OTHER, MEDICAID, SELFPAY ==
[2024-06-24 20:00] LABS: Influenza A PCR NEGATIVE (Negative); Influenza B PCR NEGATIVE (Negative); Resp Syncy Virus RNA Qual PCR NEGATIVE (Negative); SARS COV2 PCR INHOUSE NEGATIVE (Negative)
== END 2024-06-24 12:59 | disposition home or self-care (01) ==
LOC: HO.LAB 12:58
PROVIDERS: Physician Assistant; PCP Internal Medicine
DX: Z13.89 Encounter for screening for other disorder (principal)
CPT/HCPCS: 0241U; 99212

== ENCOUNTER 2024-06-24 15:13 | Outpatient (REF) | payer MEDICARE, OTHER, MEDICAID, SELFPAY ==
--- NOTE | ~2024-06-24 | XR_ITS ---
EXAMINATION: XR CHEST CLINICAL INFORMATION: R05.9 - Cough, unspecified COMPARISON: None available. TECHNIQUE: 2 views of the chest were obtained. FINDINGS: The cardiac silhouette is normal. There is mild diffuse bronchial wall thickening. There are no areas of consolidation. There are no pleural effusions or pneumothoraces. The bones and soft tissues are unremarkable for the patient's age. XR/XR chest 2V IMPRESSION: Bronchial wall thickening may be infectious and/or inflammatory in etiology. Electronically signed by: Rosa M Connell MD 06/24/2024 04:11 PM ULISES
== END 2024-06-24 15:14 | disposition home or self-care (01) ==
LOC: HO.HMGCX 15:13
PROVIDERS: PCP Internal Medicine; Visit Provider Physician Assistant
DX: R05.9 Cough, unspecified (principal); J06.9 Acute upper respiratory infection, unspecified
CPT/HCPCS: 0241U; 71046; 99212

== ENCOUNTER 2024-06-29 08:11 | Outpatient (REF) | payer MEDICARE, OTHER, MEDICAID, SELFPAY ==
[2024-06-29 10:51] LABS: Appearance Urine Clear; Color Urine Yellow; Glucose Urine UA >=1000 mg/dL (Negative); Leukocyte Esterase Urine Trace (Negative); Nitrite Urine Negative (Negative); PH 5.5 (5.0-9.0); Specific Gravity - Urine 1.015 (1.005-1.025); UMIC TRIGGER UACC YES; Urine Blood Negative (Negative); Urine Ketones Negative (Negative); Urine Protein 100 (2+) mg/dL (Neg-Trace)
[2024-06-29 10:56] LABS: Bacteria Urine None Seen (None Seen); Hyaline Casts Urine 0-2 /LPF (0-2); RBC Urine 0-2 /HPF (0-2); Squamous Epithelial Cell Urine 0-2 /HPF (0-2); UACC Culture Trigger YES
== END 2024-06-29 08:12 | disposition home or self-care (01) ==
LOC: HO.LAB 08:11
PROVIDERS: PCP Internal Medicine; Referring Provider Internal Medicine Endocrinology, Diabetes & Metabolism; Visit Provider Internal Medicine
DX: R30.0 Dysuria (principal)
CPT/HCPCS: 81001; 87086

== ENCOUNTER 2024-07-04 14:03 | Outpatient (AMB) | payer MEDICARE, OTHER, MEDICAID, SELFPAY ==
--- NOTE | 2024-07-04 14:08 | A.OFFVIS_ITS ---
Vital Signs 07/04/24 14:09 Height 5 ft 3 in Weight 136 lb 10.986 oz BMI 24.2 BP 128/62 Blood Pressure Location Rt brachial Position Sitting Pulse 84 Pulse Source Pulse Oximeter Intake Visit Reasons: Osteoporosis Intake Note: Patient present today for Osteoporosis. Sessions Clerk Required: Yes Sessions Clerk Language: Sinhala Accompanied by: Daughter Allergies No Known Allergies Allergy (Verified 06/24/24 14:57) HPI Comments Details: 83 YO Female with PMHx Osteoporosis, DM2, CKD Stage 3, AFib on chronic AC with eliquis who is seen in F/U for Osteoporosis. First diagnosed in 2021 with her first DXA. She began treatment for her Osteoporosis with Prolia with her first injection 04/04/2022. After her initial visit we completed a biochemical assessment for secondary causes of Osteoporosis, which did reveal an abnormal SPEP. She was referred to Heme-Onc and underwent additional testing, and per Heme-Onc no evidence of multiple myeloma or MGUS. No history of pathologic fracture or ONJ. Has 0-1 servings of dietary calcium per day in the form of milk and cheese. Takes Calcium citrate 600 mg PO BID. She takes Vitamin D 1000 IU daily. Uses PPI daily and also anticoagulant eliquis since June 2021. Denies ever using antiepileptic or glucocorticoid medication. Does no scheduled exercise. Fracture history: Fractured her R shoulder in 2011 in [place], this was traumatic. 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 Menses was regular. . Breastfed for 9-12 months in total. Menopause was age 49. She did not use HRT. Denies a history of Kidney stones. Denies a family history of Osteoporosis or hip fracture. UTD on dental cleanings and sees dentist every 6 months. No planned upcoming dental work or extractions. DXA: 09/01/2021 FINDINGS: AP SPINE L1-L4: BMD 0.934 g/cm2, Z-score -0.1, T-score -2.0, osteopenia. LEFT FEMUR, NECK: BMD 0.694 g/cm2, Z-score -0.2, T-score -2.5, osteoporosis. LEFT FEMUR, TOTAL: BMD 0.858 g/cm2, Z-score 1.0, T-score -1.2, osteopenia. Labs: Laboratory Tests 10/03/22 10/03/22 10/03/22 15:43 15:45 15:45 Creatinine 1.15 Estimated GFR 45 N-Telopeptide X-linked 19 25-OH Vitamin D Total 33.3 PTH Intact 44 Calcium (PTH Intact) 10.1 Wason Prolia since 04/14 Transitioned to alendronate in 03/2024 . No fx back or hip PFSH Medical History Left shoulder pain Hyperlipidemia LDL goal <100 Abnormal SPEP Vitamin D deficiency Osteoporosis Age related osteoporosis Physical exam Hypomagnesemia Atrial fibrillation with rapid ventricular response Urinary incontinence Abnormal EKG Screening for osteoporosis Neuropathy Microalbuminuria JONNY (obstructive sleep apnea) Left shoulder pain Anemia GERD (gastroesophageal reflux disease) Coronary artery disease Hypertension Type 2 diabetes mellitus with hyperglycemia Surgical History History of surgery on arm Hx of dilation and curettage Hx of breast biopsy Family History Mother Diabetes mellitus Father No problems noted. Sister Lymphoma Breast cancer Brother Colon cancer Social History Household Members: Family Housing: House Are you a primary group care worker to a significant other at home: No Do you presently have visiting nurse or other home services: Yes (insurance nurse) Alcohol intake: never Patient Tobacco Use Status: Never used Tobacco e-Cigarette/Vaping Use: Never Used Second Hand Smoke Exposure: No service: No Current occupational status: disabled Cognitive needs: No Hearing needs: No Vision needs: Yes Physical Exam Vital Signs: BMI result Body Mass Index 24.2 Assessment & Plan Assessment & Plan (1) Osteoporosis: Code(s): M81.0 - Age-related osteoporosis without current pathological fracture Category: Medical Plan: This 83-year-old female with a history of osteoporosis and negative secondary workup currently being treated with Prolia since 04/04/2022. Receive last Prolia injection 10/19/2023 Plan to continue alendronate 70 mg Q weekly check urine NTX Assuming bone turnover markers suppressed we will give alendronate for full year Orders: Orders Collagen Crosslinks NTX 1 Week M81.0 - Age-related osteoporosis without current pathological fracture Coding Level of Care Code Est Pt Level 3 (62617) Diagnoses Osteoporosis M81.0
[2024-07-04 14:09] VITALS: BP 128/62; PULSE 84; BMI 24.2
== END 2024-07-04 14:31 | disposition home or self-care (01) ==
PROVIDERS: PCP Internal Medicine; Visit Provider Internal Medicine Endocrinology, Diabetes & Metabolism
DX: M81.0 Age-related osteoporosis without current pathological fracture (principal)
CPT/HCPCS: 99213

== ENCOUNTER → 2024-07-04 14:03 | Outpatient (BNVA) | payer MEDICARE, OTHER, MEDICAID, SELFPAY | PROVIDERS: PCP Internal Medicine; Visit Provider Internal Medicine Endocrinology, Diabetes & Metabolism | DX: M81.0 Age-related osteoporosis without current pathological fracture (principal) | CPT/HCPCS: 99212 ==

== ENCOUNTER 2024-07-08 13:20 | Outpatient (AMB) | payer MEDICARE, OTHER, MEDICAID, SELFPAY ==
[2024-07-08 13:39] VITALS: BP 110/50; PULSE 95; BMI 24.3
--- NOTE | 2024-07-08 13:39 | A.OFFVIS_ITS ---
Vital Signs 07/08/24 13:39 Height 5 ft 3 in Weight 137 lb 2.04 oz BMI 24.3 BP 110/50 L Blood Pressure Location Lt brachial Position Sitting Pulse 95 Pulse Source Pulse Oximeter Intake Visit Reasons: 6m follow up Intake Note: 6 myh f/up Artificial Stone Setter Required: Yes Artificial Stone Setter Language: Wool Grower Name: [id number]/[email or web address] Accompanied by: Daughter Allergies No Known Allergies Allergy (Verified 06/24/24 14:57) Medication List - Last Reconciled 07/08/24 by Sabas Mcduffie MD [adult diapers As directed] albuterol sulfate 90 mcg/actuation 2 puffs inhalation Q4-6H PRN 30 days alendronate 70 mg PO QWEEK alprazolam 0.5 mg PO DAILY PRN 6 days amlodipine 5 mg PO DAILY 90 days amoxicillin-pot clavulanate 875-125 mg 1 tab PO Q12H apixaban (Eliquis) 5 mg PO BID 90 days azithromycin For 250 mg dose pack: take 500 mg today (day 1), then 250 mg for 4 days (days 2-5) PO benzonatate 200 mg PO TID PRN blood sugar diagnostic TEST 3 TIMES DAILY cane As directed cholecalciferol (vitamin D3) 25 mcg PO DAILY 90 days commode (bedside commode) As directed dulaglutide (Trulicity) 1.5 mg (0.5 mL) subcut QWEEK 90 days empagliflozin (Jardiance) 10 mg PO DAILY 90 days fluconazole 150 mg PO Q3D 2 doses gabapentin 100 mg PO DAILY 90 days isosorbide mononitrate ER 30 mg PO DAILY 90 days levalbuterol tartrate 45 mcg/actuation (Xopenex HFA) 2 puffs inhalation Q4-6H PRN magnesium oxide 400 mg PO DAILY 90 days metformin 1,000 mg PO BID 90 days metoprolol succinate ER 100 mg PO DAILY 90 days omeprazole 20 mg PO DAILY 90 days [One touch Ultra Blue test strips USe once a day] rosuvastatin 10 mg PO DAILY 90 days tizanidine 2 mg PO Q8H PRN underpads (Certainty Underpads) Use 1 to 2 times a day walker with brakes and seat HPI Comments Details: Pleasant 83-year-old female with history of paroxysmal atrial fibrillation and hypertension here for follow-up. She recently got admitted to [facility] with pneumonia. She was in the hospital for couple days and then went home and started complaining of some chest discomfort and was brought back to the emergency department and was noticed to be in AFib with RVR. She was treated with rate control and appears she did well after that and reverted back to sinus rhythm. In the office she is in sinus rhythm. She is otherwise not complaining of any other issues. No chest discomfort shortness of breath. She had mild chest discomfort when she went in the emergency department. Taking her medications regularly. Blood pressure control is optimal. 01/30/23: She is here for follow-up. She has been doing well. No chest discomfort shortness of breath. No palpitations. She is taking medications regularly. On apixaban for anticoagulation. She is on Toprol XL 100 mg daily. 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 06/07/2023: She returns for follow-up. She has been doing well. No significant palpitations. No chest discomfort or shortness of breath. Taking medications regularly. Blood pressure control is good. 12/06/2023: She returns for follow-up. She has not had any further chest pains. No palpitations. Taking medications regularly. No concern for bleeding. 07/08/2024: She is here for follow-up. She is denying palpitations. No consistent chest pains. Occasionally feels left-sided sharp chest pains. She is recovering from pneumonia and is completing antibiotic course. Taking medicines otherwise regularly. COUNTS INCLUDE 234 BEDS AT THE [facility] Medical History Left shoulder pain Hyperlipidemia LDL goal <100 Abnormal SPEP Vitamin D deficiency Osteoporosis Age related osteoporosis Physical exam Hypomagnesemia Atrial fibrillation with rapid ventricular response Urinary incontinence Abnormal EKG Screening for osteoporosis Neuropathy Microalbuminuria JONNY (obstructive sleep apnea) Left shoulder pain Anemia GERD (gastroesophageal reflux disease) Coronary artery disease Hypertension Type 2 diabetes mellitus with hyperglycemia Surgical History History of surgery on arm Hx of dilation and curettage Hx of breast biopsy Family History Mother Diabetes mellitus Father No problems noted. Sister Lymphoma Breast cancer Brother Colon cancer Social History Household Members: Family Housing: House Are you a primary critical care technician to a significant other at home: No Do you presently have visiting nurse or other home services: Yes (insurance nurse) Alcohol intake: never Patient Tobacco Use Status: Never used Tobacco e-Cigarette/Vaping Use: Never Used Second Hand Smoke Exposure: No service: No Current occupational status: disabled Cognitive needs: No Hearing needs: No Vision needs: Yes Review of Systems Const Denies chills, Denies fatigue, Denies fever(s), Denies frequent falls, Denies weakness, Denies weight gain and Denies weight loss ENT Denies dizziness Card Denies chest pain, Denies leg edema, Denies lightheadedness, Denies palpitation s, Denies dyspnea and Denies dyspnea on exertion Resp Denies cough, Denies dyspnea and Denies dyspnea on exertion GI Denies hematochezia Musc Denies abnormal gait, Denies muscle weakness, Denies numbness, Denies radiating pain into limb and Denies tingling Neuro Denies abnormal gait, Denies dizziness, Denies frequent falls, Denies numbness, Denies tingling and Denies weakness Endo Denies fatigue and Denies palpitations Physical Exam Vital Signs: Last Vital Signs Pulse 95 07/08/24 13:39 BP 110/50 L 07/08/24 13:39 BMI result Body Mass Index 24.3 GENERAL APPEARANCE: in no acute distress, pleasant. NECK: no carotid bruit, no jugular venous distention. SKIN: no suspicious lesions, warm and dry. HEART: no murmurs, regular rate and rhythm. LUNGS: clear to auscultation bilaterally. ABDOMEN: soft, nontender. EXTREMITIES: no edema. PERIPHERAL PULSES: equal. NEUROLOGIC: No gross deficits, AAO X 3 Assessment & Plan Assessment & Plan (1) Hypertension: Code(s): I10 - Essential (primary) hypertension Category: Medical Qualifiers: Hypertension type: essential hypertension Qualified Code(s): I10 - Essential (primary) hypertension (2) Right bundle branch block: Code(s): I45.10 - Unspecified right bundle-branch block Category: Medical (3) PAF (paroxysmal atrial fibrillation): Code(s): I48.0 - Paroxysmal atrial fibrillation Category: Medical Plan Pleasant 83-year-old female who is here for follow-up. Doing well. No concerning chest discomfort or shortness of breath. She is been stable from atrial fibrillation point of view. She recently had pneumonia and has been on antibiotics. Some sharp chest pains which could be related to pneumonia. Continue anticoagulation with apixaban 5 mg twice a day. Clinically stable and will see us back in 6 months. Thank you for allowing me to participate in the care of your patient. Please feel free to contact me if you have any questions. Coding Level of Care Code Est Pt Level 4 (28051) Diagnoses Essential hypertension I10 Hypertension type: essential hypertension Right bundle branch block I45.10 PAF (paroxysmal atrial fibrillation) I48.0
== END 2024-07-08 14:04 | disposition home or self-care (01) ==
PROVIDERS: PCP Internal Medicine; Visit Provider Internal Medicine Cardiovascular Disease
DX: I10 Essential (primary) hypertension (principal); I45.10 Unspecified right bundle-branch block; I48.0 Paroxysmal atrial fibrillation
CPT/HCPCS: 99214

== ENCOUNTER → 2024-07-08 13:20 | Outpatient (BNVA) | payer MEDICARE, OTHER, MEDICAID, SELFPAY | PROVIDERS: PCP Internal Medicine; Visit Provider Internal Medicine Cardiovascular Disease | DX: I48.0 Paroxysmal atrial fibrillation (principal); I10 Essential (primary) hypertension; I45.10 Unspecified right bundle-branch block | CPT/HCPCS: 99212 ==

== ENCOUNTER 2024-07-12 09:23 | Outpatient (REF) | payer MEDICARE, OTHER, MEDICAID, SELFPAY ==
[2024-07-12 18:15] LABS: Bacterial Vaginosis PCR NEGATIVE (Negative); Candida Group PCR NOT DETECTED (Not Detect); Candida glab krusei PCR NOT DETECTED (Not Detect); Trichomonas vaginalis PCR NOT DETECTED (Not Detect)
== END 2024-07-12 09:24 | disposition home or self-care (01) ==
LOC: HO.LAB 09:23
PROVIDERS: PCP Internal Medicine; Visit Provider Advanced Practice Midwife
DX: N89.8 Other specified noninflammatory disorders of vagina (principal)
CPT/HCPCS: 0352U; 99202

== ENCOUNTER 2024-07-12 09:23 | Outpatient (AMB) | payer MEDICARE, OTHER, MEDICAID, SELFPAY ==
--- NOTE | 2024-07-12 09:28 | A.OFFVIS_ITS ---
Vital Signs 07/12/24 09:29 Height 5 ft 3 in Weight 137 lb BMI 24.3 BP 118/60 Intake Visit Reasons: disorder of vag/Internal Referral Intake Note: Daughter Liz Information Clerk Brokerage Required: Yes Information Clerk Brokerage Language: Prepared Foods Supervisor Services: Information Clerk Brokerage Present Information Clerk Brokerage Name: Samara Director Strategic Planning: Director Strategic Planning Present (Samara) Accompanied by: Daughter Allergies No Known Allergies Allergy (Verified 07/12/24 09:29) HPI Comments Details: Patient is here today with concerns of vaginal discharge, accompanied by her daughter Liz Philippe who is her FIBER PRODUCT CUTTING MACHINE OPERATOR. She reports the discharge does not have an odor it is clear in color, she denies pelvic pain, or urinary symptoms. She has not been sexually active in over 40 years. [facility] Medical History Left shoulder pain Hyperlipidemia LDL goal <100 Abnormal SPEP Vitamin D deficiency Osteoporosis Age related osteoporosis Physical exam Hypomagnesemia Atrial fibrillation with rapid ventricular response Urinary incontinence Abnormal EKG Screening for osteoporosis Neuropathy Microalbuminuria JONYN (obstructive sleep apnea) Left shoulder pain Anemia GERD (gastroesophageal reflux disease) Coronary artery disease Hypertension Type 2 diabetes mellitus with hyperglycemia Surgical History History of surgery on arm Hx of dilation and curettage Hx of breast biopsy Family History Mother Diabetes mellitus Father No problems noted. Sister Lymphoma Breast cancer Brother Colon cancer Social History Household Members: Family Housing: House Are you a primary patient care secretary to a significant other at home: No Do you presently have visiting nurse or other home services: Yes (insurance nurse) Alcohol intake: never Patient Tobacco Use Status: Never used Tobacco e-Cigarette/Vaping Use: Never Used Second Hand Smoke Exposure: No service: No Current occupational status: disabled Cognitive needs: No Hearing needs: No Vision needs: Yes Review of Systems Const All systems reviewed & are unremarkable except as noted in HPI and below Physical Exam Vital Signs: Last Vital Signs BP 118/60 07/12/24 09:29 BMI result Body Mass Index 24.3 Const General: cooperative, healthy appearing and no acute distress Orientation/consciousness: patient oriented x3 GI Inspection: Yes normal to inspection Palpation (GI): Soft to palpation and Other GI palpation findings present (Nontender) Rectal Exam - Female: visual inspection normal General: Yes bladder normal to palpation External Female Exam: normal appearance of the urethra Speculum Exam - Vagina: normal appearance of the vagina, normal palpation, normal vaginal discharge (Clear scant amount) and vagina atrophic Speculum Exam - Cervix: normal appearance of the cervix and normal palpation Bimanual exam- vagina & uterus: normal bimanual exam, normal palpation, uterine size normal, bladder normal to palpation, normal palpation, uterine shape normal and non-tender Bimanual Exam- Adnexa, other: normal adnexae Neuro General: patient oriented x3 Assessment & Plan Assessment & Plan (1) Vaginal pruritus: Code(s): N89.8 - Other specified noninflammatory disorders of vagina Category: Medical (2) Vaginal discharge: Code(s): N89.8 - Other specified noninflammatory disorders of vagina Plan BV panel taken, await results for final plan of care. The patient expressed understanding and agreement with the plan of care. All of her questions and concerns were addressed to the best of my ability. This note is constructed using voice recognition software. While every effort has been made to ensure accuracy, architectural manager errors may have been included. Orders: Orders Bacterial Vaginosis Panel Today N89.8 - Other specified noninflammatory disorders of vagina Coding Level of Care Code New Pt Level 3 (02127) Diagnoses Vaginal pruritus N89.8 Vaginal discharge N89.8
[2024-07-12 09:29] VITALS: BP 118/60; BMI 24.3
== END 2024-07-12 10:08 | disposition home or self-care (01) ==
PROVIDERS: PCP Internal Medicine; Visit Provider Advanced Practice Midwife
DX: N89.8 Other specified noninflammatory disorders of vagina (principal)
CPT/HCPCS: 99203

== ENCOUNTER 2024-09-21 08:47 | Outpatient (REF) | payer MEDICARE, OTHER, MEDICAID, SELFPAY ==
[2024-09-21 09:01] LABS: MANUAL DIFF FLAG NO
[2024-09-21 09:26] LABS: Basophils Percent Auto 0.5 % (0-2); Eosinophils Absolute Auto 0.1 X10*3/uL (0.0-0.4); Eosinophils Percent Auto 1.3 % (0-4); Hematocrit 36.7 % (37.0-47.0); Hemoglobin 12.1 g/dl (12.0-16.0); Imm Gran Abs Auto 0.04 X10*3/uL (0.00-0.03); Imm Gran Pct Auto 0.5 % (0.0-0.4); Lymphocytes Absolute Auto 2.2 X10*3/uL (1.2-4.9); Lymphocytes Percent Auto 28.9 % (20-40); Mean Corpuscular Hemoglobin 25.7 pg (27.0-33.0); Mean Corpuscular Volume 77.9 fL (80.0-98.0); Mean Platelet Volume 9.3 fL (9.4-12.3); Monocytes Absolute Auto 0.7 X10*3/uL (0.1-1.2); Monocytes Percent Auto 9.4 % (2-11); Neutrophils Absolute Auto 4.4 x10*3/uL (2.0-8.3); Neutrophils Percent Auto 59.4 % (45-73); Platelet Count 262 X10*3/uL (160-400); Red Blood Count 4.71 X10*6/uL (4.20-5.50); Red Cell Distribution Width 13.5 % (11.0-16.0); White Blood Count 7.4 X10*3/uL (4.8-10.8)
[2024-09-21 11:20] LABS: Microalbum/Creatinine Ratio Ur 412.6 ug/mg cr (<30)
[2024-09-21 11:32] LABS: Alanine Aminotransferase 17 U/L (0-31); Albumin Level 4.1 g/dL (3.5-5.0); Alkaline Phosphatase 70 U/L (39-117); Anion Gap 13 (12-20); Aspartate Amino Transferase 15 U/L (5-31); Bilirubin Total 0.5 mg/dL (0.0-1.0); Blood Urea Nitrogen 27 mg/dL (9-16); Calcium 9.7 mg/dL (8.4-10.2); Carbon Dioxide 28 mmol/L (22-29); Chloride 107 mmol/L (96-108); Cholesterol 115 mg/dL (<200); Estimated Glomerular Filt Rate 57; Glucose Fasting 138 mg/dL (60-99); HDL Cholesterol 55 mg/dL (>40); LDL Cholesterol Calculated 42 mg/dL (<100); Potassium 4.8 mmol/L (3.3-5.1); Sodium 143 mmol/L (135-145); Total Protein 7.7 g/dL (6.5-8.0); Triglycerides 90 mg/dL (<150)
[2024-09-21 11:48] LABS: Vitamin D 25-OH Total 53.3 ng/mL (>30)
== END 2024-09-21 08:48 | disposition home or self-care (01) ==
LOC: HO.LAB 08:47
PROVIDERS: PCP Internal Medicine; Visit Provider Internal Medicine
DX: R80.9 Proteinuria, unspecified (principal); N18.31 Chronic kidney disease, stage 3a; E55.9 Vitamin D deficiency, unspecified; D64.9 Anemia, unspecified; E78.5 Hyperlipidemia, unspecified
CPT/HCPCS: 36415; 80053; 80061; 82043; 82306; 82570; 85025

== ENCOUNTER 2024-10-10 15:50 | Outpatient (REF) | payer MEDICARE, OTHER, MEDICAID, SELFPAY ==
--- OUTSIDE RECORDS SUMMARY | 2024-10-10 17:57 | XMS_ITS | Clinical Summary ---
Author Organization [facility]. Address [address] [address] Phone Care Team Providers Care Men'S Leather Dress Belt Maker Name Role Phone Pam Wills MD Primary Care Provider [phone] Allergies No known active allergies Medications amLODIPine (NORVASC) 5 MG tablet Take 5 mg by mouth 1 (one) time each day 05/08/2021 Active Trulicity 1.5 MG/0.5ML solution pen-injector INJECT 1 DOSE UNDER THE SKIN ONCE A WEEK 03/30/2021 Active gabapentin (NEURONTIN) 100 MG capsule Take 100 mg by mouth 1 (one) time each day 05/08/2021 Active OneTouch Ultra test strip TEST THREE TIMES DAILY 04/16/2021 Active metFORMIN (GLUCOPHAGE) 1000 MG tablet Take 1,000 mg by mouth 2 (two) times a day 04/13/2021 Active omeprazole (PriLOSEC) [address] capsule Take 20 mg by mouth 1 (one) time each day 05/08/2021 Active potassium chloride 10 MEQ CR tablet Take 10 mEq by mouth 1 (one) time each day Do not crush, chew, or split. Active ALBUTEROL IN Inhale Active apixaban (ELIQUIS) 5 MG tablet Take 5 mg by mouth 2 (two) times a day Active Magnesium 400 MG tablet Take by mouth Active METOPROLOL SUCCINATE PO Take 100 mg by mouth daily Active isosorbide mononitrate (IMDUR) 30 MG 24 hr tablet Take 30 mg by mouth 1 (one) time each day Do not crush or chew. Active magnesium oxide (MAG-OX) 400 MG tablet Take 400 mg by mouth 1 (one) time each day Active hydrOXYzine (ATARAX) 25 MG tablet Take 25 mg by mouth 3 (three) times a day if needed for itching Active metoprolol tartrate (LOPRESSOR) 100 MG tablet Take 100 mg by mouth 2 (two) times a day Active Active Problems Problem Noted Date Diagnosed Date Proteinuria 05/11/2021 Stage 3a chronic kidney disease 05/11/2021 Type 2 diabetes mellitus wit h diabetic chronic kidney disease 05/11/2021 Renal osteodystrophy 05/11/2021 Family History Relation Status Comments Father Mother Social History Tobacco Use Types Packs/Day Years Used Date Smoking Tobacco: Never Assessed Tobacco Cessation:Counseling Given: No Alcohol Use Standard Drinks/Week Comments Never 0 (1 standard drink = 0.6 oz pur e alcohol) Comments Unknown Sex and Gender Information Value Date Recorded Sex Assigned at Not on file Legal Sex Female 11:15 AM EDT Gender Identity Not on file Sexual Orientation Not on file Last Filed Vital Signs Vital Sign Reading Time Taken Comments Blood Pressure 161/66 05/22/2024 2:49 PM EDT Pulse 76 05/22/2024 2:49 PM EDT Temperature - - Respiratory Rate - - Oxygen Saturation 95% 05/22/2024 2:49 PM EDT Inhaled Oxygen Concentration - - Weight 62.5 kg (137 lb 12.8 oz) 05/22/2024 2:49 PM EDT Height - - Body Mass Index - - Plan of Treatment Upcoming Encounters Date Type Department Care Team (Late st Contact Info) Description 11/20/2024 3:00 PM EDT Office Visit [facility] [address] [phone] Jaylon Barreto MD [address] [address] Health Maintenance Due Date Last Done Comments Diabetes: Ophthalmology Exam 05/11/2021 Diabetes: Pedal Pulse Checked 05/11/2021 Diabetes: Sensory Foot Exam 05/11/2021 Diabetes: Visual Foot Exam 05/11/2021 Influenza Vaccine (#1) 2024 05/29/2015 Diabetes: Hemoglobin A1C 12/02/2024 025, 06/05/2019, 11/13/2015 Pneumococcal Vaccine: 65+ Years Completed 05/03/2017, 05/01/2015 Hepatitis B Vaccine Aged Out No longe r eligible based on patient's age to complete this topic Procedures Procedure Name Priority Date/Time Associated Diagnosis Comments EXT RESULT ENTRY Routine 11/13/2015 from Last 3 Months or Most Recently Relevant to Health Maintenance Results * (ABNORMAL) EXT RESULT ENTRY (11/13/2015) Sodium 143 137 - 147 Potassium 4.9 3.4 - 5.5 Chloride 99 99 - 108 Bicarbonate (CO2) 30 22 - 30 mmol/L Anion Gap 14 <=30 MMOL/L BUN 23(A) 4 - 21 mg/dL Creatinine 1.10 0.50 - 1.10 mg/dL Calcium 9.9 8.7 - 10.7 mg/dL Hemoglobin A1C 8.5(A) 4.0 - 6.0 Cholesterol 164 0 - 200 11/13/2015 Historical Provider LAB BLOOD ORDERABLES Lesa l Result from Last 3 Months or Most Recently Relevant to Health Maintenance Insurance [employer] MEDICARE [employer]ARE Care Teams Men'S Leather Dress Belt Maker Relationship Specialty Start Date End Date Pam Wills MD [address] [place], [place] PCP - General Internal Medicine 05/11/21
--- OUTSIDE RECORDS SUMMARY | 2024-10-10 17:57 | XMS_ITS | Encounter Summary ---
Author Organization [facility] Address [address] [facility] [address] [place] [address] Phone Care Team Providers Care Vamp Throater Name Role Phone Pam Wills MD Primary Care Provider Encounter Details Date Type Department Care Team (Late Contact Info) Description 08/03/2021 Documentation Only [facility] [address] [facility] [address] [place] [phone] Jaylon Barreto MD [address] [phone] Social History Tobacco Use Types Packs/Day Years Used Date Smoking Tobacco: Never Assessed Comments Unknown Sex and Gender Information Value Date Recorded Sex Assigned at Not on file Legal Sex Female 11:15 AM EDT Gender Identity Not on file Sexual Orientation Not on file COVID-19 Exposure Response Date Recorded In the last month, have you been in contact with someone who was confirmed or suspected to have Coronavirus / COVID-19? No / Unsure 07/08/2021 8:27 AM EST documented as of this encounter Plan of Treatment Upcoming Encounters Date Type Department Care Team (Late Contact Info) Description 11/20/2024 3:00 PM EDT [facility] Visit [facility] [address] [phone] Jaylon Barreto MD [address] [phone] documented as of this encounter Visit Diagnoses Not on filedocumented in this encounter Care Teams Vamp Throater Relationship Specialty Start Date End Date Pam Wills MD [address] [place], [place] PCP - General Internal Medicine 05/11/21 documented as of this encounter
--- OUTSIDE RECORDS SUMMARY | 2024-10-10 17:57 | XMS_ITS | Clinical Summary ---
Author Organization 175 [facility] Address [address] [place] [address] Phone Care Team Providers Care Customer Service Specialist Name Role Phone Best Diaz MD Primary Care Provider [phone] Allergies No known active allergies Medications magnesium oxide (MAG-OX) 400 mg magnesium tablet Take 1 tablet (400 mg total) by mouth 1 (one) time each day. Active albuterol HFA (PROAIR HFA ; PROVENTIL HFA ; VENTOLIN HFA) 90 mcg/actuation inhaler Inhale 1-2 puffs by mouth every 6 (six) hours if needed for wheezing or shortness of breath (Cough). 02/25/20 23 Active amLODIPine (NORVASC) 5 mg tablet Take 1 tablet (5 mg total) by mouth 1 (one) time each day. 11/12/19 20 Active apixaban (ELIQUIS) 5 mg tablet Take 1 tablet (5 mg total) by mouth 2 (two) times a day. Active azelastine-fluti casone 137-50 mcg/spray spray,non-aeroso l Administer 1 spray into affected nostril(s) 2 (two) times a day. 04/25/20 17 Active budesonide (PULMICORT) 0.25 mg/2 mL nebulizer solution Inhale 2 mL (0.25 mg total) by mouth 1 (one) time each day. 10/06/19 025 Active calcium carbonate-vit D3-min 600 mg calcium- 400 unit tablet Take 1 tablet by mouth 2 (two) times a day. 05/01/20 Active cholecalciferol (VITAMIN D-3) 25 mcg (1,000 unit) capsule Take 1 capsule (1,000 Units total) by mouth 1 (one) time each day. 01/12/20 Active denosumab (Prolia) 60 mg/mL syringe syringe Inject 1 mL (60 mg total) under the skin 1 (one) time. 02/19/20 Active dulaglutide (Trulicity) 1.5 mg/0.5 mL pen injector injection Inject 0.5 mL (1.5 mg total) under the skin 1 (one) time per week. Monday12/10/19 Active fluticasone-salm eterol (ADVAIR DISKUS) 250-50 mcg/dose diskus inhaler Inhale 1 puff by mouth. Active fluticasone propionate (FLONASE) 50 mcg/actuation nasal spray Administer 2 sprays into affected nostril(s) 1 (one) time each day if needed for allergies. 10/10/19 Active gabapentin (NEURONTIN) 100 mg capsule Take 1 capsule (100 mg total) by mouth at bedtime. 11/12/19 Active hydrOXYzine HCL (ATARAX) 25 mg tablet Take 1 tablet (25 mg total) by mouth 3 times daily as needed. Active isosorbide mononitrate (IMDUR) 30 mg 24 hr tablet Take 1 tablet (30 mg total) by mouth 1 (one) time each day. 02/05/20 Active metFORMIN (GLUCOPHAGE) 1,000 mg tablet Take 1 tablet (1,000 mg total) by mouth 2 (two) times a day with meals. 11/12/19 Active montelukast (SINGULAIR) 10 mg tablet Take 1 tablet (10 mg total) by mouth at bedtime. 11/12/19 Active omeprazole (PriLOSEC) [address] capsule Take 1 capsule (20 mg total) by mouth 1 (one) time each day. 05/05/20 Active tiZANidine (ZANAFLEX) 2 mg tablet Take 1 tablet (2 mg total) by mouth 1 (one) time each day. Active ipratropium (ATROVENT) 0.02 % nebulizer solutionIndicati ons:COPD exacerbation (CMS/HCC) Take 2.5 mL (0.5 mg total) by nebulization 4 (four) times a day. 75 mL 08/28/19 25 026 Active Additional Information Patient taking differently:0.5 mg nebulization4 times daily PRN, WHEEZING/SOB, Reported on 09/04/2024 metoprolol succinate (TOPROL-XL) 100 mg 24 hr tabletIndication s:hypertension Take 1 tablet (100 mg total) by mouth 1 (one) time each day. Do not crush or chew. Active alendronate (FOSAMAX) 70 mg tablet Take 1 tablet (70 mg total) by mouth every 7 (seven) days. 08/22/19 25 Active Jardiance 10 mg tablet Take 1 tablet (10 mg total) by mouth 1 (one) time each day. 06/16/20 24 Active rosuvastatin (CRESTOR) 10 mg tablet Take 1 tablet (10 mg total) by mouth 1 (one) time each day. 08/11/19 25 Active guaiFENesin (HUMIBID 3) 400 mg tablet Take 1 tablet (400 mg total) by mouth 3 (three) times a day for 10 days. 30 each 09/06/19 25 025 benzonatate (TESSALON) 200 mg capsule Take 1 capsule (200 mg total) by mouth 3 (three) times a day if needed for cough. Do not crush or chew. 42 capsule 09/06/19 25 025 cefpodoxime (VANTIN) 200 mg tablet Take 1 tablet (200 mg total) by mouth 2 (two) times a day for 5 days. 10 each 09/07/19 25 025 azithromycin (ZITHROMAX) 500 mg tablet Take 1 tablet (500 mg total) by mouth 1 (one) time each day for 5 days. 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 Continue with Wixela 500 mcg twice a day Continue with Pulmicort Adrenal adenoma 10/21/2016 Mass of colon 08/22/2016 Anxiety 10/09/2015 Insomnia 10/09/2015 Arthritis 05/01/2015 CAD (coronary artery disease) 05/01/2015 Resolved Problems Problem Noted Date Diagnosed Date Resolved Date Sepsis with acute renal fail ure without septic shock, due to unspecified organism, unspecified acute renal failure type 09/04/2024 Encounters Date Type Department Care Team Description 09/04/2024 8:45 AM EST - 09/06/2024 12:42 PM [facility] Hospital Encounter [facility] Unit [address] [place] [phone] Osmany Oquendo MD Bukalo, Nermina, MD Zipagan, James T, MD Sepsis with acute renal failure without septic shock, due to unspecified organism, unspecified acute renal failure type (CMS/HCC) (Primary Dx) Discharge Disposition: Home-Health Care [facility] 08/28/2024 5:53 PM EST - 08/29/2024 1:35 AM [facility] Emergency [facility] Emergency [address] [place] [phone] COPD exacerbation (CMS/HCC) (Primary Dx) Discharge Disposition: Home or Self Care 08/27/2024 2:00 AM EST - 08/27/2024 3:33 AM [facility] Emergency [facility] Emergency [address] [place] [phone] Marshall Smith MD Pneumonia of right middle lobe due to infectious organism (Primary Dx) Discharge Disposition: Home or Self Care from Last 3 Months Immunizations Name Administration Dates Next Due Influenza trivalent, 0.5mL, preservative free (Fluarix; FluLaval; Fluzone) ages 6mo and older (Afluria) 3 years and older 05/29/2015 Influenza trivalent, with pr eservative (Fluzone; Afluria) 6mo and older 05/03/2017 Pneumococcal conjugate 13 va lent (Prevnar 13, PCV13) 2mo and older 05/03/2017 Pneumococcal polysaccharide 23 valent (Pneumovax 23) 2yo and older 05/01/2015 Surgical History Surgery Date Site/Laterality Comments BREAST LUMPECTOMY PROCEDURE: HISTORICAL BREAST LUMPECTOMY SHOULDER SURGERY PROCEDURE: HISTORICAL SHOULDER SURGERY Medical History Medical History Date Comments CAD (coronary artery disease) 05/01/2015 DX :CAD (coronary artery disease) Adrenal adenoma 10/21/2016 DX:Adrenal adeno ma Allergic rhinitis 04/25/2017 DX:Allergic rh initis Anxiety 10/09/2015 DX:Anxiety Arthritis 05/01/2015 DX:Arthritis Asthma 04/25/2017 DX:Asthma Diabetes mellitus type 2 wit h neurological manifestations (CMS/HCC) 05/03/2017 DX:Diabetes sudhir itus type 2 with neurological manifestations (HCC) Hyperlipidemia 05/03/2017 DX:Hyperlipidemi a Hypertension 05/03/2017 DX:Hypertension Insomnia 10/09/2015 DX:Insomnia Mass of colon 08/22/2016 DX:Mass of colon Social History Tobacco Use Types Packs/Day Years Used Date Smoking Tobacco: Never Smokeless Tobacco: Never Alcohol Use Standard Drinks/Week Comments No 0 (1 standard drink = 0.6 oz pur e alcohol) Interpersonal Safety Answer Date Record ed Physical Abuse 09/05/2024 Verbal Abuse 09/05/2024 Comments Unknown Sex and Gender Information Value Date Recorded Sex Assigned at Female 08/28/2024 8:55 PM EST Legal Sex Female 8:25 AM EST Gender Identity Female 08/28/2024 8:55 PM EST Sexual Orientation Straight 08/28/2024 8: 55 PM EST Obstetrics History Last Filed Vital Signs Vital Sign Reading Time Taken Comments Blood Pressure 152/63 09/06/2024 8:18 AM EST Pulse 78 09/06/2024 8:18 AM EST Temperature 36.8 ??C (98.2 ??F) 09/06/2024 8:18 AM ES T Respiratory Rate 15 09/06/2024 8:18 AM EST Oxygen Saturation 97% 09/06/2024 8:18 AM EST Inhaled Oxygen Concentration - - Weight 59.9 kg (132 lb) 09/04/2024 8:50 AM EST Height 157.5 cm (5' 2 ) 09/04/2024 8:50 AM EST Body Mass Index 24.14 09/04/2024 8:50 AM EST Plan of Treatment Upcoming Encounters Date Type Department Care Team (Late st Contact Info) Description 10/22/2024 11:30 AM EDT Office Visit Pulmonolgy - [place] [address] [phone] Fco Parsons MD [address] [address] 12/03/2024 1:30 PM EDT Office Visit Infectious Disease - [place] [address] [phone] Natalie Govea MD [address] [address] Health Maintenance Due Date Last Done Comments Diabetes: Annual Foot Exam 1950 Diabetes: Annual Retina Eye Exam 1950 DTaP,Tdap,and Td Vaccines (1 - Tdap) 1958 Zoster Vaccines (1 of 2) 1989 RSV Immunization Patients 60+ Years Old (1 - 1-dose 75+ series) 2014 Depression Screening 06/26/2022 Medicare Annual Wellness Visit 06/26/2022 Osteoporosis Screening (Bone Density Screening) 06/26/2022 Social Influencers of Health Screening 06/26/2022 Diabetes: Annual Urine Albumin-Creatinine Ratio (uACR) 07/09/2022 06/05/2019 COVID-19 Vaccine ( - season) 2024 Influenza Vaccine (#1) 2024 05/03/2017, 2014 Breast Cancer Screening 04/04/2024 07/11/20 19, 07/01/2019, 06/28/2018 Cholesterol Screening (Lipid Panel) 06/05/2024 06/05/2019 Diabetes: Blood Sugar Control Test (HGBA1C) 03/04/2025 09/04/2024, 06/05/2019, 06/05/2019 Diabetes: Annual GFR (Glomerular Filtration Rate) 09/05/2025 09/05/2024, 09/04/2024, 08/28/2024, Additional history exists Hypertension/CHF/CAD Annual BMP Blood Test 09/05/2025 09/05/2024, 09/04/2024, 08/28/2024, Additional history exists Falls Risk Assessment 09/06/2025 09/06/2024 Pneumococcal Vaccine: 50+ Years Completed 05/03/2017, 05/01/2015 HIB Vaccines Aged Out No longer eligi ble based on patient's age to complete this topic HPV Vaccines Aged Out No longer eligi ble based on patient's age to complete this topic Hepatitis A Vaccines Aged Out No long er eligible based on patient's age to complete this topic Hepatitis B Vaccines Aged Out No long er eligible based on patient's age to complete this topic IPV Vaccines Aged Out No longer eligi ble based on patient's age to complete this topic MMR Vaccines Aged Out No longer eligi ble based on patient's age to complete this topic Meningococcal ACWY Vaccine Aged Out N o longer eligible based on patient's age to complete this topic Meningococcal B Vacine Aged Out No lo nger eligible based on patient's age to complete this topic RSV Immunization Patients Under 20 months Aged Out No longer eligible based on patient's age to complete this topic Varicella Vaccines Aged Out No longer eligible based on patient's age to complete this topic Procedures Procedure Name Priority Date/Time Associated Diagnosis Comments ECG ANNOTATED 09/07/2024 POCT GLUCOSE BLOOD Routine 09/06/2024 11 :30 AM EST POCT GLUCOSE BLOOD Routine 09/06/2024 8: 19 AM EST COMPLETE BLOOD COUNT Timed 09/06/2024 6:53 AM EST SST - GOLD Routine 09/06/2024 6:52 AM EST EXTRA TUBES Routine 09/06/2024 6:52 AM EST POCT GLUCOSE BLOOD Routine 09/05/2024 8: 27 PM EST POCT GLUCOSE BLOOD Routine 09/05/2024 3: 57 PM EST HEPATIC FUNCTION PANEL STAT 12:31 PM EST ACTIVATED PARTIAL THROMBOPLASTIN TIME STAT 09/05/2024 12:31 PM EST PROTHROMBIN TIME WITH INR STAT 09/05/2024 12:31 PM EST POCT GLUCOSE BLOOD Routine 09/05/2024 11 :38 AM EST POCT GLUCOSE BLOOD Routine 09/05/2024 7: 34 AM EST CBC WITH AUTO DIFFERENTIAL STAT 09/05/2024 6:38 AM EST CBC AND DIFFERENTIAL STAT 09/05/2024 6:38 AM EST BASIC METABOLIC PANEL STAT 09/05/2024 6:38 AM EST LACTATE STAT 09/05/2024 6:38 AM EST POCT GLUCOSE BLOOD Routine 09/04/2024 8: 52 PM EST POCT GLUCOSE BLOOD Routine 09/04/2024 5: 07 PM EST LEGIONELLA ANTIGEN URINE, EIA STAT 09/04/2024 12:28 PM EST STREPTOCOCCUS PNEUMONIAE ANTIBODIES, IGG, 23 SEROTYPES Routine 09/04/2024 11:55 AM EST POCT GLUCOSE BLOOD Routine 09/04/2024 11 :38 AM EST LACTATE STAT 09/04/2024 11:20 AM EST TROPONIN I HIGH SENSITIVITY STAT 09/04/2024 10:[address] CHEST WO CONTRAST STAT 09/04/2024 9:19 AM EST HEMOGLOBIN A1C Add-On 09/04/2024 9:10 AM EST LACTATE STAT 09/04/2024 9:10 AM EST CBC WITH AUTO DIFFERENTIAL STAT 09/04/2024 9:10 AM EST CBC AND DIFFERENTIAL STAT 09/04/2024 9:10 AM EST CULTURE BLOOD STAT 09/04/2024 9:10 AM EST TROPONIN I HIGH SENSITIVITY STAT 09/04/2024 9:02 AM EST RESPIRATORY VIRUS PANEL MOLECULAR STUDY STAT 09/04/2024 9:02 AM EST B-TYPE NATRIURETIC PEPTIDE STAT 09/04/2024 9:00 AM EST BASIC METABOLIC PANEL STAT 09/04/2024 9:00 AM EST CULTURE BLOOD STAT 09/04/2024 9:00 AM EST ECG 12-LEAD STAT 09/04/2024 8:56 AM EST [facility]ITICAL [facility]ARE 30-74 MINUTES Routine 09/04/2024 8:41 AM EST POCT GLUCOSE BLOOD Routine 08/28/2024 9: 53 PM EST RESPIRATORY VIRUS PANEL MOLECULAR STUDY STAT 08/28/2024 8:50 PM EST ECG 12-LEAD STAT 08/28/2024 7:38 PM EST TROPONIN I HIGH SENSITIVITY STAT 08/28/2024 7:30 PM EST XR CHEST 2 VIEWS STAT 08/28/2024 6:40 PM EST CBC WITH AUTO DIFFERENTIAL STAT 08/28/2024 6:18 PM EST B-TYPE NATRIURETIC PEPTIDE STAT 08/28/2024 6:18 PM EST MAGNESIUM STAT 08/28/2024 6:18 PM EST LIPASE STAT 08/28/2024 6:18 PM EST COMPREHENSIVE METABOLIC PANEL STAT 08/28/2024 6:18 PM EST CBC AND DIFFERENTIAL STAT 08/28/2024 6:18 PM EST TROPONIN I HIGH SENSITIVITY STAT 08/28/2024 6:18 PM EST ECG 12-LEAD STAT 08/28/2024 6:09 PM EST ECG ANNOTATED 08/28/2024 XR CHEST 2 VIEWS STAT 08/27/2024 1:34 AM EST TROPONIN I HIGH SENSITIVITY STAT 08/27/2024 12:53 AM EST ECG 12-LEAD STAT 08/27/2024 12:48 AM EST ECG ANNOTATED 08/27/2024 CBC WITH AUTO DIFFERENTIAL STAT 08/26/2024 11:04 PM EST B-TYPE NATRIURETIC PEPTIDE STAT 08/26/2024 11:04 PM EST MAGNESIUM STAT 08/26/2024 11:04 PM EST LIPASE STAT 08/26/2024 11:04 PM EST COMPREHENSIVE METABOLIC PANEL STAT 08/26/2024 11:04 PM EST CBC AND DIFFERENTIAL STAT 08/26/2024 11:04 PM EST TROPONIN I HIGH SENSITIVITY STAT 08/26/2024 11:04 PM EST ECG 12-LEAD STAT 08/26/2024 10:59 PM EST RESPIRATORY VIRUS PANEL MOLECULAR STUDY STAT 08/26/2024 10:47 PM EST DOMINIC SCREENING DIGITAL Routine 07/01/2019 4:51 PM EST Encounter for screening mammogram for malignant neoplasm of breast HM URINE ALBUMIN CREATININE RATIO Routine 06/05/2019 LIPID PANEL Routine 06/05/2019 from Last 3 Months or Most Recently Relevant to Health Maintenance Results * ECG-Annotated (09/07/2024) Only the most recent of3 resultswithin the time period is included. us Provider Onbase MD ECG ORDERABLES Final Result * (ABNORMAL) POCT Glucose, blood (09/06/2024 11:30 AM EST) Only the most recent of10 resultswithin the time period is included. Glucose POCT 330(H) 70 - 100 mg/dL 09/06/2024 11:32 AM EST [facility] Blood Capillary blood specimen / Unknown 09/06/2024 11:30 AM EST 09/06/2024 11:33 AM EST John Cope MD LAB POINT OF CARE TE ST DOCKED DEVICE UNSOLICITED RESULTS Final Result [facility] [address] [place] [address], [place] [phone] * (ABNORMAL) CBC - Every 3 Days (09/06/2024 6:53 AM EST) WBC 11.8(H) 4.8 - 10.8 K/[facility] LAB HEMETOLOGY METHOD 09/06/2024 7:36 AM EST [facility] RBC 5.00(H) 3.80 - 4.80 M/mcL LAB HEMETOLOGY METHOD 09/06/2024 7:36 AM [facility] Hemoglobin 12.9 11.5 - 16.0 g/dL LAB HEMETOLOGY METHOD 09/06/2024 7:36 AM [facility] Hematocrit 38.8 35.0 - 47.0 % LAB HEMETOLOGY METHOD 09/06/2024 7:36 AM [facility] MCV 77.4(L) 79.0 - 98.0 FL LAB HEMETOLOGY METHOD 09/06/2024 7:36 AM [facility] MCH 25.7(L) 27.0 - 32.0 pcg LAB HEMETOLOGY METHOD 09/06/2024 7:36 AM [facility] MCHC 33.2 32.0 - 37.0 g/dL LAB HEMETOLOGY METHOD 09/06/2024 7:36 AM [facility] RDW 13.5 11.0 - 15.0 % LAB HEMETOLOGY METHOD 09/06/2024 7:36 AM [facility] Platelets 328 130 - 400 K/mcL LAB HEMETOLOGY METHOD 09/06/2024 7:36 AM [facility] MPV 9.2 7.0 - 11.0 FL LAB HEMETOLOGY METHOD 09/06/2024 7:36 AM [facility] NRBC 0.0 <1.0 % LAB HEMETOLOGY METHOD 09/06/2024 7:36 AM [facility] NRBC Absolute 0.00 <0.10 K/mcL LAB HEMETOLOGY METHOD 09/06/2024 7:36 AM [facility] Blood Venous blood specimen / Unknown Venipuncture / Unknown 09/06/2024 6:53 AM EST 09/06/2024 7:20 AM EST us John Cope MD LAB BLOOD ORDERABLES Final Re sult Performing Organization Address City/[facility]/ZIP Co de Phone Number [facility] [address] [place] [address], [place] [phone] * SST tube (09/06/2024 6:52 AM EST) Extra Tube Hold for add-ons. 09/06/2024 9:01 AM EST [facility] Comment:Auto resulted. Blood Venous blood specimen / Unknown Venipuncture / Unknown 09/06/2024 6:52 AM EST 09/06/2024 7:29 AM EST us John Cope MD LAB BLOOD ORDERABLES Final Re sult Performing Organization Address [facility]/ZIP Co de Phone Number [facility] [address] [place] [address], [place] [phone] * Activated Partial Thromboplastin Time - STAT (09/05/2024 12:31 PM EST) aPTT 24.1 24.1 - 39.3 sec LAB COAGULATION METHOD 09/05/2024 12:56 PM EST [facility] Blood Venous blood specimen / Unknown Venipuncture / Unknown 09/05/2024 12:31 PM EST 09/05/2024 12:42 PM EST us John Cope MD LAB BLOOD ORDERABLES Final Re sult Performing Organization Address [facility]/ZIP Co de Phone Number [facility] [address] [place] [address], [place] [phone] * Prothrombin Time with INR - STAT (09/05/2024 12:31 PM EST) Protime 12.3 10.6 - 13.9 sec LAB COAGULATION METHOD 09/05/2024 12:56 PM [facility] INR 1.0 LAB COAGULATION METHOD 09/05/2024 12:56 PM [facility] Blood Venous blood specimen / Unknown Venipuncture / Unknown 09/05/2024 12:31 PM EST 09/05/2024 12:42 PM EST us John Cope MD LAB BLOOD ORDERABLES Final Re sult [facility] [address] [place] [address], [place] [phone] * Hepatic Function Panel - STAT (09/05/2024 12:31 PM EST) Total Protein 6.9 6.0 - 8.0 g/dL LAB CHEMISTRY METHOD 09/05/2024 1:20 PM [facility] Albumin 3.5 3.2 - 5.0 g/dL LAB CHEMISTRY METHOD 09/05/2024 1:20 PM [facility] Total Bilirubin 0.8 0.0 - 1.4 mg/dL LAB CHEMISTRY METHOD 09/05/2024 1:20 PM [facility] Bilirubin, Direct 0.2 0.0 - 0.3 mg/dL LAB CHEMISTRY METHOD 09/05/2024 1:20 PM [facility] Bilirubin, Indirect 0.6 0.0 - 1.1 mg/dL LAB CHEMISTRY METHOD 09/05/2024 1:20 PM [facility] ALT (SGPT) 21 10 - 60 unit/L LAB CHEMISTRY METHOD 09/05/2024 1:20 PM [facility] AST (SGOT) 13 10 - 42 unit/L LAB CHEMISTRY METHOD 09/05/2024 1:20 PM [facility] Alkaline Phosphatase 67 42 - 121 unit/L LAB CHEMISTRY METHOD 09/05/2024 1:20 PM [facility] Blood Venous blood specimen / Unknown Venipuncture / Unknown 09/05/2024 12:31 PM EST 09/05/2024 12:42 PM EST us John Cope MD LAB BLOOD ORDERABLES Final Re sult [facility] [address] [place] [address], * (ABNORMAL) CBC auto differential (09/05/2024 6:38 AM EST) Only the most recent of4 resultswithin the time period is included. WBC 11.7(H) 4.8 - 10.8 K/mcL LAB HEMETOLOGY METHOD 09/05/2024 7:05 AM [facility] RBC 4.90(H) 3.80 - 4.80 M/mcL LAB HEMETOLOGY METHOD 09/05/2024 7:05 AM [facility] Hemoglobin 12.7 11.5 - 16.0 g/dL LAB HEMETOLOGY METHOD 09/05/2024 7:05 AM [facility] Hematocrit 38.0 35.0 - 47.0 % LAB HEMETOLOGY METHOD 09/05/2024 7:05 AM [facility] MCV 77.4(L) 79.0 - 98.0 FL LAB HEMETOLOGY METHOD 09/05/2024 7:05 AM [facility] MCH 25.9(L) 27.0 - 32.0 pcg LAB HEMETOLOGY METHOD 09/05/2024 7:05 AM [facility] MCHC 33.4 32.0 - 37.0 g/dL LAB HEMETOLOGY METHOD 09/05/2024 7:05 AM [facility] RDW 13.4 11.0 - 15.0 % LAB HEMETOLOGY METHOD 09/05/2024 7:05 AM [facility] Platelets 339 130 - 400 K/mcL LAB HEMETOLOGY METHOD 09/05/2024 7:05 AM [facility] MPV 9.2 7.0 - 11.0 FL LAB HEMETOLOGY METHOD 09/05/2024 7:05 AM [facility] NRBC 0.0 <1.0 % LAB HEMETOLOGY METHOD 09/05/2024 7:05 AM [facility] NRBC Absolute 0.00 <0.10 K/mcL LAB HEMETOLOGY METHOD 09/05/2024 7:05 AM [facility] Neutrophils Relative 65.4 % LAB HEMETOLOGY METHOD 09/05/2024 7:05 AM [facility] Lymphocytes Relative 25.1 % LAB HEMETOLOGY METHOD 09/05/2024 7:05 AM [facility] Monocytes Relative 7.9 % LAB HEMETOLOGY METHOD 09/05/2024 7:05 AM [facility] Eosinophils Relative 0.4 % LAB HEMETOLOGY METHOD 09/05/2024 7:05 AM [facility] Basophils Relative 0.1 % LAB HEMETOLOGY METHOD 09/05/2024 7:05 AM [facility] Immature Granulocytes Relative 1.1 % LAB HEMETOLOGY METHOD 09/05/2024 7:05 AM [facility] Neutrophils Absolute 7.66(H) 1.50 - 7.00 K/mcL LAB HEMETOLOGY METHOD 09/05/2024 7:05 AM [facility] Lymphocytes Absolute 2.94 1.00 - 5.00 K/mcL LAB HEMETOLOGY METHOD 09/05/2024 7:05 AM [facility] Monocytes Absolute 0.93 0.20 - 1.00 K/mcL LAB HEMETOLOGY METHOD 09/05/2024 7:05 AM [facility] Eosinophils Absolute 0.05 0.00 - 0.50 K/mcL LAB HEMETOLOGY METHOD 09/05/2024 7:05 AM EST [facility] Basophils Absolute 0.01 0.00 - 0.20 K/[facility] HEMETOLOGY METHOD 09/05/2024 7:05 AM [facility] Immature Granulocytes Absolute 0.13(H) 0.00 - 0.03 K/[facility] HEMETOLOGY METHOD 09/05/2024 7:05 AM EST [facility] Blood Venous blood specimen / Unknown Venipuncture / Unknown 09/05/2024 6:38 AM EST 09/05/2024 6:47 AM EST [facility] BLOOD ORDERABLES Final Res ult Performing Organization Address [facility]/ZIP Co de Phone Number [facility] [address] [place] [address], * Lactate (09/05/2024 6:38 AM EST) Only the most recent of3 resultswithin the time period is included. Lactate 1.5 0.4 - 2.0 mmol/L LAB CHEMISTRY METHOD 09/05/2024 7:19 AM EST [facility] Blood Venous blood specimen / Unknown Venipuncture / Unknown 09/05/2024 6:38 AM EST 09/05/2024 6:47 AM EST [facility] [place] [facility] BLOOD ORDERABLES Final Res ult Performing Organization Address [facility]/ZIP Co de Phone Number [facility] [address] [place] [address], [place] [phone] * (ABNORMAL) Basic metabolic panel (09/05/2024 6:38 AM EST) Only the most recent of2 resultswithin the time period is included. Sodium 138 133 - 145 mmol/L LAB CHEMISTRY METHOD 09/05/2024 7:21 AM [facility] Potassium 4.5 3.5 - 5.5 mmol/L LAB CHEMISTRY METHOD 09/05/2024 7:21 AM [facility] Chloride 104 96 - 110 mmol/L LAB CHEMISTRY METHOD 09/05/2024 7:21 AM [facility] CO2 30 21 - 32 mmol/L LAB CHEMISTRY METHOD 09/05/2024 7:21 AM [facility] Anion Gap 4 3 - 11 LAB CHEMISTRY METHOD 09/05/2024 7:21 AM [facility] Glucose 171(H) 70 - 100 mg/dL LAB CHEMISTRY METHOD 09/05/2024 7:21 AM [facility] BUN 36(H) 5 - 25 mg/dL LAB CHEMISTRY METHOD 09/05/2024 7:21 AM [facility] Creatinine 1.08 0.50 - 1.10 mg/dL LAB CHEMISTRY METHOD 09/05/2024 7:21 AM [facility] eGFR 50(L) >=60 mL/min/1. 73m2 LAB CHEMISTRY METHOD 09/05/2024 7:21 AM [facility] Comment:Calculation based on the??Chronic Kidney Disease Epidemiology Collaboration (CKD-EPI) equation refit??without adjustment for race. BUN/Creatinine Ratio 33.3 LAB CHEMISTRY METHOD 09/05/2024 7:21 AM [facility] Calcium 10.2 8.5 - 10.5 mg/dL LAB CHEMISTRY METHOD 09/05/2024 7:21 AM [facility] Blood Venous blood specimen / Unknown Venipuncture / Unknown 09/05/2024 6:38 AM EST 09/05/2024 6:46 AM EST us Andres GARCIA LAB BLOOD ORDERABLES Final Res ult [facility] [address] [place] [address], * Legionella antigen urine, EIA (09/04/2024 12:28 PM EST) Legionella Antigen, Ur Negative Negative 09/04/2024 2:21 PM EST [facility] Urine Urine specimen from urethra / Unknown Non-blood Collection / Unknown 09/04/2024 12:28 PM EST 09/04/2024 12:42 PM EST Narrative [facility] - 09/04/2024 2:21 PM EST Negative for Legionella pneumophilia serogroup 1 antigen. This presumptive result suggests no current or recent infection due to L. pneumophilia serogroup 1. Culture is recommended if Legionella infection is till suspected, as other serogroups and species of Legionella are not detected by this test. us Laron Maldonado MD LAB URINE ORDERABLES Final Res ult [facility] [address] [place] [address], * Streptococcus pneumoniae antibodies, IgG, 23 serotypes (09/04/2024 11:55 AM EST) Pathologist [facility] Serotype 1 (1) 1.1 >=1.0 mcg/mL 09/10/2024 3:22 PM EST [facility] Serotype 2 (2) 4.9 >=1.0 mcg/mL 09/10/2024 3:22 PM EST [facility] Serotype 3 (3) 0.2 >=1.0 mcg/mL 09/10/2024 3:22 PM EST [facility] Serotype 4 (4) 0.1 >=1.0 mcg/mL 09/10/2024 3:22 PM EST [facility] Serotype 5 (5) 0.2 >=1.0 mcg/mL 09/10/2024 3:22 PM EST [facility] Serotype 8 (8) 0.5 >=1.0 mcg/mL 09/10/2024 3:22 PM EST [facility] Serotype 9 (9N) 0.3 >=1.0 mcg/mL 09/10/2024 3:22 PM EST [facility] Serotype 12F (12) 0.3 >=1.0 mcg/mL 09/10/2024 3:22 PM EST [facility] Serotype 14 (14) 5.7 >=1.0 mcg/mL 09/10/2024 3:22 PM EST [facility] Serotype 17 (17F) 0.2 >=1.0 mcg/mL 09/10/2024 3:22 PM EST [facility] Serotype 19 (19F) 1.0 >=1.0 mcg/mL 09/10/2024 3:22 PM EST [facility] Serotype 20 (20) 1.5 >=1.0 mcg/mL 09/10/2024 3:22 PM EST [facility] Serotype 22F (22) 0.5 >=1.0 mcg/mL 09/10/2024 3:22 PM EST [facility] Serotype 23 (23F) 0.2 >=1.0 mcg/mL 09/10/2024 3:22 PM EST [facility] Serotype 6B 0.1 >=1.0 mcg/mL 09/10/2024 3:22 PM EST [facility] Serotype 10A 0.8 >=1.0 mcg/mL 09/10/2024 3:22 PM EST [facility] Serotype 11A 0.1 >=1.0 mcg/mL 09/10/2024 3:22 PM EST [facility] Serotype 7F 0.6 >=1.0 mcg/mL 09/10/2024 3:22 PM EST [facility] Serotype 15B 0.9 >=1.0 mcg/mL 09/10/2024 3:22 PM EST [facility] Serotype 18C 0.1 >=1.0 mcg/mL 09/10/2024 3:22 PM EST [facility] Serotype 19A SEE BELOW >=1.0 mcg/mL 09/10/2024 3:22 PM EST [facility] Comment:RESULT: Unable to pe rform test due to a reagent issue. Serotype 9V 0.1 >=1.0 mcg/mL 09/10/2024 3:22 PM EST [facility] Serotype 33F 0.6 >=1.0 mcg/mL 09/10/2024 3:22 PM EST [facility] Interpretation SEE BELOW 09/10/2024 3:22 PM EST [facility] Comment: Overall interpretation of pneumococcal antibody serology panel can be based on the reported 22 serotypes. Evaluation of the immune response following pneumococcal vaccination can be assessed by measuring serotype-specific Streptococcus pneumonia IgG antibodies. Either of the following conditions is consistent with a normal response to Streptococcus pneumonia vaccination: 1. When comparing pre and post-vaccination samples, antibody concentrations increased by at least 2-fold for either >50% of serotypes in children <6 years of age or >70% of serotypes for individuals >6 years of age. 2. In either a pre- or post-vaccination sample, antibody concentrations >=1.0 mcg/mL for either >50% of serotypes for children <6 years of age or >70% of serotypes for individuals >6 years of age. Results >=1.0 mcg/mL or those showing a >=2-fold change are consistent with an immune response, but are not necessarily sufficient to provide protection against infection. ADDITIONAL INFORMATION This test was developed and its performance characteristics determined by [facility] in a manner consistent with CLIA requirements. This test has not been cleared or approved by the U.S. Food and Drug Administration. Test Performed by: [facility] [place] [address] [employer] Engine Mechanic: Iris Ruiz Ph.D.; CLIA# [id number] Blood Venous blood specimen / Unknown Venipuncture / Unknown 09/04/2024 11:55 AM EST 09/04/2024 12:00 PM EST us Laron Maldonado MD LAB BLOOD ORDERABLES Final Res ult [facility] [address] [place] [address] * Troponin I high sensitivity (09/04/2024 10:37 AM EST) Only the most recent of6 resultswithin the time period is included. [facility] High Sensitivity Troponin I 6 <=54 ng/L LAB CHEMISTRY METHOD 09/04/2024 11:09 AM EST [facility] Blood Venous blood specimen / Unknown Venipuncture / Unknown 09/04/2024 10:37 AM EST 09/04/2024 10:44 AM EST Narrative [facility] - 09/04/2024 11:09 AM EST High levels of biotin in samples may falsely decrease hsTroponin values. ??Use caution when interpreting hsTroponin results in patients taking biotin who exhibit renal impairment (eGFR <60) or in patients taking more than 20 mg/day of biotin. us Osmany Britni Oquendo MD LAB BLOOD ORDERABLES Final Resu lt [facility] ([facility]) [facility] [address] [place] [address], [place] [phone] * CT Chest wo Contrast (09/04/2024 9:19 AM EST) Anatomical Region Laterality Modality Body Computed Tomogra phy 09/04/2024 9:37 AM EST Impressions 09/04/2024 9:41 AM EST No acute findings in the chest. 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 Hepatic steatosis with hepatic surface nodularity raising the possibility of early cirrhosis. -------- FINAL REPORT -------- Dictated By: JUSTIN MONCADA Dictated Date: 09/04/2024 09:37 ET Assigned Physician: JUSTIN MONCADA Reviewed and Electronically Signed By: JUSTIN MONCADA Signed Date: 09/04/2024 09:41 ET Workstation ID: [id number] Transcribed By: Self Edit Transcribed Date: 09/04/2024 09:37 ET Narrative 09/04/2024 9:41 AM EST PROCEDURE: Chest CT INDICATION: Cough TECHNIQUE: Chest CT without contrast. Multi planar reformats were created and interpreted. The examination was performed utilizing dose reduction techniques. ??Total DLP 200 COMPARISON: ??10/28/[address] abdomen/pelvis 07/06/2016 FINDINGS: LUNGS/PLEURA: Improved diffuse bronchial wall thickening, centrilobular nodularity, mild bronchiectasis, mucous plugging, and atelectasis most pronounced in the right middle and lower lobes. ??No new consolidation, pleural effusion, or pneumothorax. MEDIASTINUM: Small thyroid nodules are similar compared to prior. ??No mediastinal or hilar lymphadenopathy. ??Esophagus is within normal limits. ??Cardiac chambers are normal in size. ??No pericardial effusion. ??No significant coronary artery calcifications CHEST WALL: No axillary lymphadenopathy or superficial hematoma. UPPER ABDOMEN:Hepatic steatosis with hepatomegaly and nodular liver contour suggesting cirrhosis. ??Right adrenal nodule is unchanged compatible with an adenoma. BONES: Right rotator cuff repair. ??Degenerative changes seen throughout the bones. Procedure Note Justin Moncada MD - 09/04/2024 PROCEDURE: Chest CT INDICATION: Cough TECHNIQUE: Chest CT without contrast. Multi planar reformats were createdand interpreted. The examination was performed utilizing dose reductiontechniques. Total DLP 200 COMPARISON: 10/28/[address] abdomen/pelvis 07/06/2016 FINDINGS: LUNGS/PLEURA: Improved diffuse bronchial wall thickening, centrilobularnodularity, mild bronchiectasis, mucous plugging, and atelectasis mostpronounced in the right middle and lower lobes. No new consolidation,pleural effusion, or pneumothorax. MEDIASTINUM: Small thyroid nodules are similar compared to prior. Nomediastinal or hilar lymphadenopathy. Esophagus is within normal limits.Cardiac chambers are normal in size. No pericardial effusion. Nosignificant coronary artery calcifications CHEST WALL: No axillary lymphadenopathy or superficial hematoma. UPPER ABDOMEN:Hepatic steatosis with hepatomegaly and nodular livercontour suggesting cirrhosis. Right adrenal nodule is unchangedcompatible with an adenoma. BONES: Right rotator cuff repair. Degenerative changes seen throughoutthe bones. IMPRESSION: No acute findings in the chest. 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 Hepatic steatosis with hepatic surface nodularity raising the possibilityof early cirrhosis. -------- FINAL REPORT -------- Dictated By: JUSTIN MONCADA Dictated Date: 09/04/2024 09:37 ET Assigned Physician: JUSTIN MONCADA Reviewed and Electronically Signed By: JUSTIN MONCADA Signed Date: 09/04/2024 09:41 ET Workstation ID: [id number] Transcribed By: Self Edit Transcribed Date: 09/04/2024 09:37 ET Osmany Oquendo MD IMG CT PROCEDURES Final Result * Blood Culture, Peripheral Draw #2 (09/04/2024 9:10 AM EST) Only the most recent of2 resultswithin the time period is included. [facility] Culture, Blood No growth at 5 days 09/09/2024 10:01 AM EST [facility] Blood Venous blood specimen / Unknown Venipuncture / Unknown 09/04/2024 9:10 AM EST 09/04/2024 9:21 AM EST Osmany Oquendo MD LAB MICROBIOLOGY - GENERAL ORDE RABLES Final Result Performing Organization Address [facility]/ZIP Co de Phone Number [facility] [address] [place] [address], [place] [phone] * (ABNORMAL) Hemoglobin A1c (09/04/2024 9:10 AM EST) [facility] Hemoglobin A1C 8.5(H) <6.5 % LAB CHEMISTRY METHOD 09/04/2024 5:11 PM EST [facility] Mean Bld Glu Estim. 197 mg/dL LAB CHEMISTRY METHOD 09/04/2024 5:11 PM EST [facility] Blood Venous blood specimen / Unknown Venipuncture / Unknown 09/04/2024 9:10 AM EST 09/04/2024 9:26 AM EST Laron Maldonado MD LAB BLOOD ORDERABLES Final Res ult Performing Organization Address [facility]/ZIP Co de Phone Number [facility] [address] [place] [address], [place] [phone] * Respiratory virus panel molecular study (09/04/2024 9:02 AM EST) Only the most recent of3 resultswithin the time period is included. [facility] Adenovirus Detection by PCR Not Detected Not Detected LAB MICROBIOLOGY METHOD 09/04/2024 10:45 AM [facility] Influenza A PCR Not Detected Not Detected LAB MICROBIOLOGY METHOD 09/04/2024 10:45 AM [facility] Influenza B PCR Not Detected Not Detected LAB MICROBIOLOGY METHOD 09/04/2024 10:45 AM [facility] Coronavirus 229E Not Detected Not Detected LAB MICROBIOLOGY METHOD 09/04/2024 10:45 AM [facility] Coronavirus HKU1 Not Detected Not Detected LAB MICROBIOLOGY METHOD 09/04/2024 10:45 AM [facility] Coronavirus OC43 Not Detected Not Detected LAB MICROBIOLOGY METHOD 09/04/2024 10:45 AM [facility] Coronavirus NL63 Not Detected Not Detected LAB MICROBIOLOGY METHOD 09/04/2024 10:45 AM [facility] Parainfluenza Virus 1 Not Detected Not Detected LAB MICROBIOLOGY METHOD 09/04/2024 10:45 AM [facility] Parainfluenza Virus 2 Not Detected Not Detected LAB MICROBIOLOGY METHOD 09/04/2024 10:45 AM [facility] Parainfluenza Virus 3 Not Detected Not Detected LAB MICROBIOLOGY METHOD 09/04/2024 10:45 AM [facility] Parainfluenza Virus 4 Not Detected Not Detected LAB MICROBIOLOGY METHOD 09/04/2024 10:45 AM [facility] RSV PCR Not Detected Not Detected LAB MICROBIOLOGY METHOD 09/04/2024 10:45 AM [facility] Human Metapneumovirus A and B Not Detected Not Detected LAB MICROBIOLOGY METHOD 09/04/2024 10:45 AM [facility] Rhinovirus/Entero virus Not Detected Not Detected LAB MICROBIOLOGY METHOD 09/04/2024 10:45 AM [facility] Bordetella pertussis Not Detected Not Detected LAB MICROBIOLOGY METHOD 09/04/2024 10:45 AM EST [facility] Bordetella parapertussis Not Detected Not Detected LAB MICROBIOLOGY METHOD 09/04/2024 10:45 AM EST [facility] Mycoplasma pneumo by PCR Not Detected Not Detected LAB MICROBIOLOGY METHOD 09/04/2024 10:45 AM EST [facility] Chlamydia pneumoniae Not Detected Not Detected LAB MICROBIOLOGY METHOD 09/04/2024 10:45 AM EST [facility] SARS COV-2 Not Detected Not Detected LAB MICROBIOLOGY METHOD 09/04/2024 10:45 AM [facility] Swab Nasopharyngeal structure / Unknown Non-blood Collection / Unknown 09/04/2024 9:02 AM EST 09/04/2024 9:26 AM EST [facility] - 09/04/2024 10:45 AM EST Testing was performed using the [employer] ([email or web address]) Respiratory Pathogen PCR Assay. All results must be correlated with the clinical findings. Results should not be used as the sole basis for diagnosis. False Negative results may occur from the presence of sequence variants in the region targeted by the assay or the presence of inhibitors. Results may be affected by concurrent antiviral/antimicrobial therapy or levels of organisms that are below the limit of detection. [facility] Britni Oquendo MD LAB [facility]BIOLOGY - [facility] Final Result [facility] [address] [place] [address], * B-type natriuretic peptide (09/04/2024 9:00 AM EST) Only the most recent of3 resultswithin the time period is included. BNP 75 <=100 pcg/mL LAB CHEMISTRY METHOD 09/04/2024 10:21 AM EST [facility] Blood Venous blood specimen / Unknown Venipuncture / Unknown 09/04/2024 9:00 AM EST 09/04/2024 9:26 AM EST us Osmany Oquendo MD LAB BLOOD ORDERABLES Final Resu lt Performing Organization Address [facility]/ZIP Co de Phone Number [facility] [address] [place] [address], * ECG 12 lead (09/04/2024 8:56 AM EST) Only the most recent of5 resultswithin the time period is included. Ventricular Rate ECG 116 BPM [facility] Atrial Rate 116 BPM [facility] P-R Interval 162 ms [facility] QRS Duration 120 ms G[facility] Q-T Interval 338 ms GEM[facility] QTc 469 ms GEMUSE P Wave [place] 36 degrees GEMUSE R [place] 61 degrees GEMUSE T [place] 61 degrees GEMUSE ECG Interpretation Sinus tachycardia Possible Left atrial enlargement Right bundle branch block Abnormal ECG When compared with ECG of 28-AUG-2024 19:38, Premature atrial complexes are no longer Present ST now depressed in Anterior leads Confirmed by FALGUNI REDDY ([id number]) on 09/04/2024 4:05:47 PM [facility] 09/04/2024 8:56 AM EST 09/04/2024 4:05 PM EST us Osmany Oquendo MD ECG ORDERABLES Final Result Performing Organization Address [facility] Co de Phone Number [facility] * [facility] 30-74 MINUTES (09/04/2024 8:41 AM EST) Narrative Osmany Oquendo MD - 09/04/2024 8:41 AM EST Osmany Oquendo MD ? 09/09/2024 ??4:00 PM Critical Care Performed by: Osmany Oquendo MD Authorized by: Osmany Oquendo MD ?? Critical care provider statement: ??Critical care time (minutes): ??45 ??Critical care time was exclusive of: ??Separately billable procedures and treating other patients ??Critical care was necessary to treat or prevent imminent or life-threatening deterioration of the following conditions: ??Sepsis ??Critical care was time spent personally by me on the following activities: ??Development of treatment plan with patient or surrogate, discussions with consultants, pulse oximetry, re-evaluation of patient's condition, review of old charts, ordering and review of radiographic studies, ordering and review of laboratory studies, ordering and performing treatments and interventions, examination of patient, evaluation of patient's response to treatment and obtaining history from patient or surrogate ??I assumed direction of critical care for this patient from another provider in my specialty: no ?Care discussed with: admitting provider ?? Comments: ?? 84-year-old female presents with a chief complaint of shortness of breath, productive cough, found to have an elevated white blood cell count, tachycardia, as well as tachypnea on exam. ??Given that she met SIRS criteria as well as a source of infection likely in the lungs and given this, she meets sepsis criteria. ??She also has an DANIELLE and lactic acidosis and meets criteria for sepsis with endorgan damage. Osmany Oquendo MD IN CLINIC/BEDSIDE ORDERABLES Fi nal Result * XR Chest 2 Views (08/28/2024 6:40 PM EST) Only the most recent of2 resultswithin the time period is included. Anatomical Region Laterality Modality Body Radiographic Rosey ging 08/29/2024 12:1 4 AM EST Impressions 08/29/2024 12:16 AM EST FINDINGS/IMPRESSION: NO ACUTE FINDINGS. Normal heart size without pulmonary vascular congestion or effusion. ??No consolidation. ??No pneumothorax. ??Degenerative osseous changes and post procedure changes of the right shoulder. -------- FINAL REPORT -------- Dictated By: Antwan Delgado Dictated Date: 08/29/2024 00:14 ET Assigned Physician: Antwan Delgado Reviewed and Electronically Signed By: Antwan Delgado Signed Date: 08/29/2024 00:16 ET Workstation ID: [id number] Transcribed By: Self Edit Transcribed Date: 08/29/2024 00:14 ET Narrative 08/29/2024 12:16 AM EST XR CHEST 2 VIEWS INDICATION: chest pain TECHNIQUE: XR CHEST 2 VIEWS COMPARISON: 08/27/2024 Procedure Note Antwan Delgado MD - 08/29/2024 XR CHEST 2 VIEWS INDICATION: chest pain TECHNIQUE: XR CHEST 2 VIEWS COMPARISON: 08/27/2024 IMPRESSION: FINDINGS/IMPRESSION: NO ACUTE FINDINGS. Normal heart size without pulmonary vascular congestion or effusion. Noconsolidation. No pneumothorax. Degenerative osseous changes and postprocedure changes of the right shoulder. -------- FINAL REPORT -------- Dictated By: Antwan Delgado Dictated Date: 08/29/2024 00:14 ET Assigned Physician: Antwan Delgado Reviewed and Electronically Signed By: Antwan Delgado Signed Date: 08/29/2024 00:16 ET Workstation ID: [id number] Transcribed By: Self Edit Transcribed Date: 08/29/2024 00:14 ET Asa Giles MD IMG XR PROCEDURES Final R esult * Magnesium (08/28/2024 6:18 PM EST) Only the most recent of2 resultswithin the time period is included. Magnesium 1.9 1.9 - 2.6 mg/dL LAB CHEMISTRY METHOD 08/28/2024 7:45 PM EST [facility] Blood Venous blood specimen / Unknown Venipuncture / Unknown 08/28/2024 6:18 PM EST 08/28/2024 7:04 PM EST Asa Giles MD LAB BLOOD ORDERABLES Lesa l Result [facility] [address] [place] [address], [place] [phone] * (ABNORMAL) Lipase (08/28/2024 6:18 PM EST) Only the most recent of2 resultswithin the time period is included. Lipase 111(H) 13 - 75 unit/L LAB CHEMISTRY METHOD 08/28/2024 7:45 PM EST [facility] Blood Venous blood specimen / Unknown Venipuncture / Unknown 08/28/2024 6:18 PM EST 08/28/2024 7:04 PM EST us Asa Giles MD LAB BLOOD ORDERABLES Lesa reginald Result [facility] [address] [place] [address], * (ABNORMAL) Comprehensive metabolic panel (08/28/2024 6:18 PM EST) Only the most recent of2 resultswithin the time period is included. Sodium 135 133 - 145 mmol/L LAB CHEMISTRY METHOD 08/28/2024 7:46 PM [facility] Potassium 3.8 3.5 - 5.5 mmol/L LAB CHEMISTRY METHOD 08/28/2024 7:46 PM [facility] Chloride 99 96 - 110 mmol/L LAB CHEMISTRY METHOD 08/28/2024 7:46 PM [facility] CO2 25 21 - 32 mmol/L LAB CHEMISTRY METHOD 08/28/2024 7:46 PM [facility] Anion Gap 11 3 - 11 LAB CHEMISTRY METHOD 08/28/2024 7:46 PM [facility] Glucose 182(H) 70 - 100 mg/dL LAB CHEMISTRY METHOD 08/28/2024 7:46 PM [facility] BUN 20 5 - 25 mg/dL LAB CHEMISTRY METHOD 08/28/2024 7:46 PM [facility] Creatinine 1.23(H) 0.50 - 1.10 mg/dL LAB CHEMISTRY METHOD 08/28/2024 7:46 PM [facility] eGFR 43(L) >=60 mL/min/1. 73m2 LAB CHEMISTRY METHOD 08/28/2024 7:46 PM [facility] Comment:Calculation based on the??Chronic Kidney Disease Epidemiology Collaboration (CKD-EPI) equation refit??without adjustment for race. BUN/Creatinine Ratio 16.3 LAB CHEMISTRY METHOD 08/28/2024 7:46 PM [facility] Calcium 9.2 8.5 - 10.5 mg/dL LAB CHEMISTRY METHOD 08/28/2024 7:46 PM [facility] AST (SGOT) 16 10 - 42 unit/L LAB CHEMISTRY METHOD 08/28/2024 7:46 PM [facility] ALT (SGPT) 24 10 - 60 unit/L LAB CHEMISTRY METHOD 08/28/2024 7:46 PM [facility] Alkaline Phosphatase 81 42 - 121 unit/L LAB CHEMISTRY METHOD 08/28/2024 7:46 PM [facility] Total Protein 7.4 6.0 - 8.0 g/dL LAB CHEMISTRY METHOD 08/28/2024 7:46 PM [facility] Albumin 3.8 3.2 - 5.0 g/dL LAB CHEMISTRY METHOD 08/28/2024 7:46 PM [facility] Total Bilirubin 0.4 0.0 - 1.4 mg/dL LAB CHEMISTRY METHOD 08/28/2024 7:46 PM [facility] Blood Venous blood specimen / Unknown Venipuncture / Unknown 08/28/2024 6:18 PM EST 08/28/2024 7:04 PM EST us Asa Giles MD LAB BLOOD ORDERABLES Lesa l Result [facility] [address] [place] [address], * DOMINIC SCREENING DIGITAL (07/01/2019 4:51 PM EST) Anatomical Region Laterality Modality Mammography 07/01/2019 12:3 0 PM EST Narrative 07/01/2019 4:51 PM [facility] Diagnostic Imaging Department [address] [place] [address] Patient: ??KRISTIN VALDIVIA ?/Age/Sex: 1940 - 78 - F Unit#: ??[id number] ? Location/Status: ??SPDIMAM/REG CLI ? Mnemonic/Ordering Site: ??DIGSC/SPMAM Ordering Physician: ??GRISELDA VELAZQUEZ MD Dominic Screening Digital - 07/01/191316 INDICATION: SCREENING COMPARISON: No prior studies are available for comparison. TECHNIQUE: CC and MLO views of the breasts were obtained, using full field digital mammography with 3D tomosynthesis views in the MLO projection. Computer aided detection with the [employer] 7.2-H was employed. Patient reports 2 sisters with breast cancer diagnosed in their 50's. FINDINGS: The breasts contain heterogeneously dense tissues, which may lower sensitivity of mammography in this patient. No suspicious masses, suspicious microcalcifications, or areas of architectural distortion are identified. ??Benign-appearing breast and vascular calcifications are present bilaterally. Metallic biopsy marker is present on the right. ?? There are no secondary signs of breast malignancy. ??Compared to the prior exam, no adverse interval change. IMPRESSION: ??No specific mammographic evidence of breast malignancy. Lack of an imaging correlate should not deter or delay biopsy of a clinically significant palpable finding. BI-RADS ??- Category 2 - Benign finding 3342F, 7025F Annual screening mammography is recommended. Patient entered into a reminder system with a target date for the next mammogram. ([id number] / [id number]) , ??[id number] Dictating Physician: ??BRODY SMITH MD Electronically Signed by: ??BRODY SMITH MD Dic Date/Time: ??07/01/19 1646 Sign date/Time: ??07/01/19 1651 Procedure Note Brody Smith - 07/13/2022 [facility] Diagnostic Imaging Department [address] [place] [id number] Patient: MERI MCGREGORKRISTINO.B./Age/Sex: 1940 - 78 - F Unit#: [id number] Location/Status: SPDIMA/REG CLI Mnemonic/Ordering Site: [facility] Ordering Physician: GRISELDA VELAZQUEZ MD Dominic Screening Digital - 07/01/19 - 1317 INDICATION: SCREENING COMPARISON: No prior studies are available for comparison. TECHNIQUE: CC and MLO views of the breasts were obtained, using full field digital mammography with 3D tomosynthesis views in the MLO projection. Computer aided detection with the [employer] 7.2-H was employed. Patient reports 2 sisters with breast cancer diagnosed in their 50's. FINDINGS: The breasts contain heterogeneously dense tissues, which may lowersensitivity of mammography in this patient. No suspicious masses, suspicious microcalcifications, or areas ofarchitectural distortion are identified. Benign-appearing breast and vascularcalcifications are present bilaterally. Metallic biopsy marker is present on the right.There are no secondary signs of breast malignancy. Compared to the prior exam,no adverse interval change. IMPRESSION: No specific mammographic evidence of breast malignancy. Lack of an imaging correlate should not deter or delay biopsy of aclinically significant palpable finding. BI-RADS - Category 2 - Benign finding 3342F, 7025F Annual screening mammography is recommended. Patient entered into a reminder system with a target date for the next mammogram. [id number] / [id number]) , [id number] Dictating Physician: BRODY SMITH MD Electronically Signed by: BRODY SMITH MD Dic Date/Time: 07/01/19 1646 Sign date/Time: 07/01/19 1651 Griselda Velazquez MD IMG BI PROCEDURES Final Result * HM Urine Albumin Creatinine Ratio (06/05/2019) Urine Albumin Creatinine Ratio abstracted Historical Provider HEALTH MAINTENANCE Final Result * (ABNORMAL) Lipid panel (06/05/2019) LDL/HDL Ratio 3 0 - 4 Triglycerides 136 0 - 150 mg/dL Cholesterol 192 0 - 200 mg/dL HDL 56 >=40 mg/dL LDL Cholesterol 109(A) 0 - 100 mg/dL Blood Venous blood specimen / Unknown Historical Provider LAB BLOOD ORDERABLES Lesa l Result from Last 3 Months or Most Recently Relevant to Health Maintenance Insurance [employer] MEDICARE MEDICAID - [place] Advance Directives Documents on File Type Date Recorded 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 Health Care Decision (hx) 03/17/2017 AD MCG[place]AN DIRECTIVE Health Care Decision (hx) 03/17/2017 AD [place]CG[place] DIRECTIVE Health Care Decision (hx) 03/17/2017 AD [place]CG[place] DIRECTIVE Health Care Decision (hx) 03/17/2017 AD [place]CG[place] DIRECTIVE Health Care Decision (hx) 03/17/2017 AD [place]CG[place] DIRECTIVE Health Care Decision (hx) 03/17/2017 AD [place]CG[place] DIRECTIVE Health Care Decision (hx) 03/17/2017 AD [place]CG[place] DIRECTIVE Health Care Decision (hx) 03/17/2017 AD [place]CG[place]AN DIRECTIVE Health Care Decision (hx) 03/17/2017 AD MCG[place]AN DIRECTIVE Health Care Decision (hx) 03/17/2017 AD MCG[place] DIRECTIVE Health Care Decision (hx) 03/17/2017 AD [place]CG[place] DIRECTIVE Health Care Decision (hx) 03/17/2017 Liz Oliva DVANCE DIRECTIVE Healthcare Agents on File Name Relationship Healthcare Agent Relationshi p Communication Liz Starr Daughter Health Care Agent [phone] (Mobile) Care Teams Customer Service Specialist Relationship Specialty Start Date End Date Best Diaz MD [address] [place] [address] [address] [facility] [place] [address] PCP - General 07/13/23
--- OUTSIDE RECORDS SUMMARY | 2024-10-10 17:58 | XMS_ITS | Clinical Summary ---
Author Organization [email or web address] [facility] Address [address] [place] [address] Care Team Providers Care Money Examiner Name Role Phone Pam Wills MD Primary Care Provid er Allergies No known active allergies Medications Medication Sig Dispensed Refills Start Date End Date Status amLODIPine (NORVASC) tablet 5 mg Take 5 mg by mouth. 0 11/12/2019 Active apixaban (ELIQUIS) 5 MG TABS tablet Take 5 mg by mouth. 0 Active Cholecalciferol (Vitamin D3) 25 MCG (1000 UT) CAPS 0 01/11/2022 Active Prolia 60 MG/ML SOSY injection 0 02/18/2022 Active dulaglutide (Trulicity) 1.5 MG/0.5ML subcutaneous pen-injector INJECT 1 DOSE UNDER THE SKIN ONCE A WEEK 0 12/09/2020 Active gabapentin (NEURONTIN) 100 MG capsule Take 100 mg by mouth. 0 11/12/2019 Active hydrOXYzine (ATARAX) 25 MG tablet Take 25 mg by mouth 3 (three) times a day as needed. 0 Active isosorbide mononitrate (IMDUR) 30 MG 24 hr tablet Take 30 mg by mouth. 0 02/05/2020 Active Magnesium 400 MG TABS Take by mouth. 0 Active metFORMIN (GLUCOPHAGE) tablet 1000 mg Take 1,000 mg by mouth. 0 11/12/2019 Active metoprolol tartrate (LOPRESSOR) 100 MG tablet Take 100 mg by mouth. 0 Active omeprazole (PriLOSEC) 20 MG capsule Take 20 mg by mouth. 0 05/05/2020 Active potassium chloride ER (K-DUR) 10 MEQ tablet Take 10 mEq by mouth. 0 11/12/2019 Active Active Problems No known active problems Social History Tobacco Use Types Packs/Day Years Used Date Smoking Tobacco: Never Smokeless Tobacco: Never Alcohol Use Standard Drinks/Week Comments Never 0 (1 standard drink = 0.6 oz pur e alcohol) Sex and Gender Information Value Date Recorded Sex Assigned at Not on file Gender Identity Not on file Sexual Orientation Not on file Job Start Date Occupation Industry Not on file Not on file Not on file Last Filed Vital Signs Vital Sign Reading Time Taken Comments Blood Pressure 147/51 04/11/2022 8:04 AM EDT Pulse 76 04/11/2022 8:04 AM EDT Temperature 36.7 ??C (98 ??F) 04/11/2022 8:04 AM EDT Respiratory Rate - - Oxygen Saturation 96% 04/11/2022 8:04 AM EDT Inhaled Oxygen Concentration - - Weight 61.7 kg (136 lb) 04/11/2022 8:04 AM EDT Height - - Body Mass Index - - Plan of Treatment Health Maintenance Due Date Last Done Comments COVID-19 Vaccine (#1) 01/14/1941 Depression Screening 1951 Preventative Health Evaluation 1957 DTap / Tdap / Td (1 - Tdap) 1958 Shingrix-Zoster Vaccine (1 o f 2) 1989 Fall Risk Assessment 2004 Osteoporosis Screening (DEXA Scan) 2004 RSV Adult > 60+ Yrs or (1 - 1-dose 75+ series) 2014 Influenza Vaccine (#1) 2024 05/03/2017 Pneumococcal Vaccine Completed 05/03/2017, 05/01/2015 Hepatitis B Vaccines Aged Out No long er eligible based on patient's age to complete this topic RSV Ped < 20 months Aged Out No longe r eligible based on patient's age to complete this topic Care Teams Money Examiner Relationship Specialty Start Date End Date Pam Wills MD [address] [facility] [address] [facility] [place] [address] PCP - General Internal Medicine 02/02/22
== END 2024-10-10 15:51 | disposition home or self-care (01) ==
LOC: HO.MAMMO 15:50
PROVIDERS: PCP Internal Medicine; Visit Provider Internal Medicine
DX: Z12.31 Encounter for screening mammogram for malignant neoplasm of breast (principal)
CPT/HCPCS: 77063; 77067

== ENCOUNTER → 2024-10-10 16:15 | Outpatient (BNV) | payer MEDICARE, OTHER, MEDICAID, SELFPAY | PROVIDERS: PCP Internal Medicine; Visit Provider Internal Medicine | DX: Z12.31 Encounter for screening mammogram for malignant neoplasm of breast (principal) | CPT/HCPCS: 77063; 77067 ==

== ENCOUNTER 2024-10-16 07:55 | Outpatient (AMB) | payer MEDICARE, OTHER, MEDICAID, SELFPAY ==
--- NOTE | 2024-10-16 08:07 | MHC.PC.OV ---
Vital Signs 10/16/24 08:11 Height 5 ft 3 in Weight 136 lb BMI 24.1 BP 140/80 H Blood Pressure Location Lt brachial Position Sitting Intake Visit Reasons: dm Network Director Required: Yes Network Director Language: Rolled Seat Trimmer Name: Pam Montoya MD Information Interpreted: non-clinical & clinical Accompanied by: Daughter Allergies amlodipine Adverse Reaction (Intermediate, Verified 10/16/24 08:43) leg edema empagliflozin [From Jardiance] Adverse Reaction (Verified 10/16/24 08:43) vaginal candidiasis Medication List - Last Reconciled 10/16/24 by Pam Montoya MD [adult diapers As directed] albuterol sulfate 90 mcg/actuation 2 puffs inhalation Q4-6H PRN 30 days alendronate 70 mg PO QWEEK amlodipine 5 mg PO DAILY 90 days apixaban (Eliquis) 5 mg PO BID 90 days blood sugar diagnostic TEST 3 TIMES DAILY blood-glucose meter (Next Big Sound Ultra2 Meter) As directed- TID cane As directed cholecalciferol (vitamin D3) 25 mcg PO DAILY 90 days commode (bedside commode) As directed dulaglutide (Trulicity) 1.5 mg (0.5 mL) subcut QWEEK 90 days empagliflozin (Jardiance) 10 mg PO DAILY 90 days gabapentin 100 mg PO DAILY 90 days isosorbide mononitrate ER 30 mg PO DAILY 90 days levalbuterol tartrate 45 mcg/actuation (Xopenex HFA) 2 puffs inhalation Q4-6H PRN magnesium oxide 400 mg PO DAILY 90 days metformin 1,000 mg PO BID 90 days metoprolol succinate ER 100 mg PO DAILY 90 days omeprazole 20 mg PO DAILY 90 days [One touch Ultra Blue test strips Use 3 times a day] prednisone 10 mg PO DIRECTED 8 days rosuvastatin 10 mg PO DAILY 90 days tizanidine 2 mg PO Q8H PRN underpads (Certainty Underpads) Use 1 to 2 times a day walker with brakes and seat Tobacco use date assessed: 10/16/24 Fall risk assessment: No Falls in past year Last assessed Fall Risk: 10/16/24 Dental Screening Dental Screen Date: 10/16/24 Did you have a dental visit in the last 12 months?: No Did you have a dental problem in the last 6 months where you did not have access to dental care?: No Was dental information given to patient?: Patient has dentist HPI HPI Comments History of Present Illness Details The patient is an 84-year-old female presenting with a follow-up for management of her chronic conditions, including hypertension, diabetes, and COPD. She has a long-standing history of hypertension that has recently worsened to a reading of 140/80 mmHg, despite ongoing treatment with amlodipine. There are concerns about peripheral edema potentially related to amlodipine. Her diabetes is not optimally controlled, as evidenced by an increase in HbA1c from 7 to 9.1%. Additionally, the patient is managing diabetes-related neuropathy with gabapentin and recently started Jardiance. The intention of Jardiance was to control blood glucose but has resulted in unwanted side effects, including vaginal candidiasis. Hyperlipidemia is stable with controlled LDL cholesterol. Osteopenia is addressed with alendronate. She suffers from microalbuminuria, indicating possible kidney dysfunction. Previously, she had respiratory issues, including bacterial pneumonia and episodes of bronchitis, related to COPD. Lung conditions are attributed to past environmental factors. [facility] Medical History Left shoulder pain Hyperlipidemia LDL goal <100 Abnormal SPEP Vitamin D deficiency Osteoporosis Age related osteoporosis Physical exam Hypomagnesemia Atrial fibrillation with rapid ventricular response Urinary incontinence Abnormal EKG Screening for osteoporosis Neuropathy Microalbuminuria JONNY (obstructive sleep apnea) Left shoulder pain Anemia GERD (gastroesophageal reflux disease) Coronary artery disease Hypertension Type 2 diabetes mellitus with hyperglycemia Surgical History History of surgery on arm Hx of dilation and curettage Hx of breast biopsy Family History Mother Diabetes mellitus Father No problems noted. Sister Lymphoma Breast cancer Brother Colon cancer Social History Household Members: Family Housing: House Are you a primary lawn care specialist to a significant other at home: No Do you presently have visiting nurse or other home services: Yes (insurance nurse) Alcohol intake: never Patient Tobacco Use Status: Never used Tobacco e-Cigarette/Vaping Use: Never Used Second Hand Smoke Exposure: No service: No Current occupational status: disabled Cognitive needs: No Hearing needs: No Vision needs: Yes Questionnaire PHQ-9 Over the last 2 weeks, how often have you been bothered by any of the following problems? 1. Little interest or pleasure in doing things: not at all 2. Feeling down, depressed, or hopeless: not at all 3. Trouble falling or staying asleep, or sleeping too much: not at all 4. Feeling tired or having little energy: not at all 5. Poor appetite or overeating: not at all 6. Feeling bad about yourself - or that you are a failure or have let yourself or your family down: not at all 7. Trouble concentrating on things, such as reading the newspaper or watching television: not at all 8. Moving or speaking so slowly that other people could have noticed. Or the opposite - being so fidgety or restless that you have been moving around a lot more than usual: not at all 9. Thoughts that you would be better off or of hurting yourself in some way: not at all Total score: 0 Depression Screening Interpretation: Negative Depression Screening Done: Yes 00221 - PHQ-9 Billing: Yes Source: Developed by Drs. Jayro Wan, Tara Gutierrez, Bryant Reno and colleagues, with an educational adore from [employer]. Thrive Questionnaire Date Thrive assessed: 10/16/24 I am a: Patient What is your living situation today?: I have a steady place to live Within the past 12 months, did the food you bought not last and you didn't have the money to get more?: Never true Within the past 12 months, did you worry whether your food would run out before you got money to buy more?: Never true Do you have trouble paying for medicines?: No Do you have trouble getting transportation to medical appointments?: No Do you have trouble paying your heating and electricity bill?: No Do you have trouble taking care of your child, family member or friend?: No Do you have trouble with day-to-day activities such as bathing, preparing meals, shopping, managing finances, etc.?: No Are you currently unemployed and looking for a job?: No Are you interested in more education?: No Please select the resources that you would like help with: None Currently or been in a relationship where the following occur: No concerns reported THRIVE Score: 0 AUDIT C Alcohol Use Questionnaire (AUDIT-C) 1. How often do you have a drink containing alcohol?: Never Total Score: 0 Score Reviewed/Action Taken: No LINDSAY-7 AMB Questionnaire LINDSAY-7 Date LINDSAY - 7 assessed: 10/16/24 Feeling nervous, anxious, or on edge: 0 = Not at all Not being able to stop or control worryin = Not at all Worrying too much about different things: 0 = Not at all Trouble relaxin = Not at all Being so restless that it is hard to sit still: 0 = Not at all Becoming easily annoyed or irritable: 0 = Not at all Feeling afraid as if something awful might happen: 0 = Not at all Total LINDSAY-7 score (0-4 normal; 5-9 mild; 10-14 moderate; 15-21 severe): 0 Source: Developed by Drs. Jayro Wan, Tara Gutierrez, Bryant Reno and colleagues, with an educational adore from [employer]. LINDSAY-7 Assessment Billing LINDSAY-7 Assessment Tool: LINDSAY-7 Assessment 82438 Review of Systems Const All systems reviewed & are unremarkable except as noted in HPI and below Card Denies chest pain at rest, Denies chest pain with activity, Denies edema, Denies irregular heart rhythm, Denies claudication, Denies dyspnea, Denies dyspnea on exertion, Denies orthopnea, Denies paroxysmal nocturnal dyspnea and Denies slow heart rate Resp Denies cough, Denies dyspnea and Denies dyspnea on exertion GI Denies abdominal pain, Denies change in bowel habits, Denies excessive flatus, Denies nausea and Denies vomiting Denies urinary incontinence, Denies urinary hesitancy and Denies urinary urgency Neuro Denies lack of coordination Physical exam (Primary Care) Vital Signs: Last Vital Signs BP 140/80 H 10/16/24 08:11 BMI result Body Mass Index 24.1 Tobacco/Smoking Status: Tobacco use Status Tobacco use date assessed 10/16/24 10/16/24 08:17 Patient Tobacco Use Status Never used Tobacco 10/16/24 08:08 e-Cigarette/Vaping Use Never Used 10/16/24 08:08 PHQ-9: PHQ-9 Score PHQ-9: Total score 0 10/16/24 08:21 Depression Screening Interpretation: Negative Thrive Assessment: Date of Thrive Assessment Date Thrive assessed 10/16/24 10/16/24 08:17 Currently or been in a relationship where the following occur: No concerns reported Resp Effort & Inspection: normal respiratory effort Auscultation: clear to auscultation bilaterally Cardio Jugular venous distension: no JVD Rate: regular rate Rhythm: regular rhythm Heart sounds: S1 normal heart sound present and S2 normal heart sound present Extrem General: Yes full ROM Results AMB Hemoglobin A1c AMB Hemoglobin A1c 9.1 % Last Edit by JIM Mcneill on 10/16/24 08:18 Results Reviewed Results Reviewed: Laboratory Last Values Hgb A1c (Clinic) 9.1 % (4.0-6.0) H 10/16/24 08:06 Coding Level of Care Code Est Pt Level 4 (75300) Complex EM visit Add On G2211 Diagnoses COPD (chronic obstructive pulmonary disease) J44.9 Hyperlipidemia LDL goal <70 E78.5 Vaginal pruritus N89.8 PAF (paroxysmal atrial fibrillation) I48.0 Stage 3a chronic kidney disease N18.31 Chronic kidney disease stage 3 subtype: stage 3a (GFR 45-59) Age-related osteoporosis without current pathological fracture M81.0 Presence of current pathological fracture: without current pathological fracture Type 2 diabetes mellitus with hyperglycemia, without long-term current use of insulin E11.65 Diabetes mellitus senior care insulin use: without senior care use Essential hypertension I10 Hypertension type: essential hypertension Additional Codes LINDSAY-7 Assessment Billing - LINDSAY-7 Assessment Tool: LINDSAY-7 Assessment 13338 ([id number]) PHQ-9 - 22122 - PHQ-9 Billing: Yes ([id number]) Time Spent (min) 30 Assessment & Plan Assessment & Plan (1) COPD (chronic obstructive pulmonary disease): Comment: Follow by pulmonology Dr. Gee Code(s): J44.9 - Chronic obstructive pulmonary disease, unspecified Category: Medical (2) Hyperlipidemia LDL goal <70: Code(s): E78.5 - Hyperlipidemia, unspecified Category: Medical (3) Vaginal pruritus: Code(s): N89.8 - Other specified noninflammatory disorders of vagina Category: Medical (4) PAF (paroxysmal atrial fibrillation): Code(s): I48.0 - Paroxysmal atrial fibrillation Category: Medical (5) CKD (chronic kidney disease) stage 3, GFR 30-59 ml/min: Code(s): N18.30 - Chronic kidney disease, stage 3 unspecified Category: Medical Qualifiers: Chronic kidney disease stage 3 subtype: stage 3a (GFR 45-59) Qualified Code(s): N18.31 - Chronic kidney disease, stage 3a (6) Age related osteoporosis: Code(s): M81.0 - Age-related osteoporosis without current pathological fracture Category: Medical Qualifiers: Presence of current pathological fracture: without current pathological fracture Qualified Code(s): M81.0 - Age-related osteoporosis without current pathological fracture (7) Type 2 diabetes mellitus with hyperglycemia: Code(s): E11.65 - Type 2 diabetes mellitus with hyperglycemia Category: Medical Qualifiers: Diabetes mellitus predatory animal exterminator insulin use: without predatory animal exterminator use Qualified Code(s): E11.65 - Type 2 diabetes mellitus with hyperglycemia (8) Hypertension: Code(s): I10 - Essential (primary) hypertension Category: Medical Qualifiers: Hypertension type: essential hypertension Qualified Code(s): I10 - Essential (primary) hypertension Plan Discontinue amlodipine due to peripheral edema and start losartan for better hypertensive and renal management. Discontinue Jardiance, introduce pioglitazone, and adjust gabapentin dosage to better manage diabetes and neuropathy. Continue rosuvastatin for hyperlipidemia and alendronate for osteopenia. Address and review COPD management with a specialist, maintaining focus on lifestyle and adequate dietary intake. Monitor condition and efficacy regularly with follow-up appointments. Patient was informed and verbally consented to the use of an ambient scribe for clinic note documentation during this visit. The patient and I discussed the management changes for her chronic conditions, including ceasing amlodipine and beginning losartan to address hypertension and renal concerns. I explained the discontinuation of Jardiance to resolve vaginal candidiasis and introduced pioglitazone as an alternative for diabetes management. We reviewed potential side effects, especially for new medications affecting blood pressure or glucose control. The patient was informed of regular follow-ups to assess the efficacy and safety of these adjustments. We addressed the benefits of continuing rosuvastatin and alendronate therapy. I provided anticipatory guidance, emphasizing the importance of monitoring symptoms and following the prescribed plan. Orders: Orders AMB Hemoglobin A1c Today E11.65 - Type 2 diabetes mellitus with hyperglycemia Lipid Panel 4 Months E78.5 - Hyperlipidemia, unspecified Microalbumin, Random (w Creat) 4 Months R80.9 - Proteinuria, unspecified Vitamin B12 and Folate 4 Months E53.8 - Deficiency of other specified B group vitamins Vitamin D 25-OH Total 4 Months E55.9 - Vitamin D deficiency, unspecified Comprehensive [place]. Panel Fast 4 Months N18.31 - Chronic kidney disease, stage 3a Referrals Ear/Nose/Throat Referral H91.90 - Unspecified hearing loss, unspecified ear Medications: New losartan 25 mg PO DAILY 90 tabs 0RF 90 days pioglitazone 30 mg PO DAILY 90 tabs 1RF 90 days fluconazole may repeat second dose 72 hrs after first dose if symptoms persist 150 mg PO Q3D 2 tabs 0RF 2 doses Changed From tizanidine 2 mg PO Q8H PRN 14 tabs 0RF muscle spasticity To tizanidine 2 mg PO Q8H PRN 90 tabs 0RF muscle spasticity 30 days From gabapentin 100 mg PO DAILY 90 days 90 caps 0RF To gabapentin 200 mg (2 x 100 mg) PO BEDTIME 180 caps 1RF 90 days Discontinued empagliflozin (Jardiance) Discontinued Reason: Patient Completed Course 10 mg PO DAILY 90 days 90 tabs 1RF amlodipine Discontinued Reason: Patient Completed Course 5 mg PO DAILY 90 days 90 tabs 3RF Patient Instructions: - Stop taking amlodipine and start losartan as directed for blood pressure. - Discontinue Jardiance and take pioglitazone once daily for diabetes management. - Adjust gabapentin dose to 200 mg at bedtime. - Continue taking rosuvastatin for cholesterol management. - Maintain alendronate as previously directed to manage osteopenia. - Monitor blood pressure and glucose regularly and report any unusual symptoms. - Attend all follow-up appointments and adhere to recommended tests and evaluations.
[2024-10-16 08:11] VITALS: BP 140/80; BMI 24.1
== END 2024-10-16 08:53 | disposition home or self-care (01) ==
LOC: HO.HMCH 07:55
PROVIDERS: PCP Internal Medicine; Visit Provider Internal Medicine
DX: I12.9 Hypertensive chronic kidney disease with stage 1 through stage 4 chronic kidney disease, or unspecified chronic kidney disease (principal); J44.9 Chronic obstructive pulmonary disease, unspecified; I48.0 Paroxysmal atrial fibrillation; N18.31 Chronic kidney disease, stage 3a; E11.65 Type 2 diabetes mellitus with hyperglycemia; E78.5 Hyperlipidemia, unspecified; N89.8 Other specified noninflammatory disorders of vagina; M81.0 Age-related osteoporosis without current pathological fracture

== ENCOUNTER → 2024-10-16 07:55 | Outpatient (BNVA) | payer MEDICARE, OTHER, MEDICAID, SELFPAY | PROVIDERS: PCP Internal Medicine; Visit Provider Internal Medicine | DX: J44.9 Chronic obstructive pulmonary disease, unspecified (principal); E78.5 Hyperlipidemia, unspecified; N89.8 Other specified noninflammatory disorders of vagina; I48.0 Paroxysmal atrial fibrillation; M81.0 Age-related osteoporosis without current pathological fracture; I12.9 Hypertensive chronic kidney disease with stage 1 through stage 4 chronic kidney disease, or unspecified chronic kidney disease; E11.22 Type 2 diabetes mellitus with diabetic chronic kidney disease; N18.31 Chronic kidney disease, stage 3a; E11.65 Type 2 diabetes mellitus with hyperglycemia | CPT/HCPCS: 83036; 96127; 99212 ==

== ENCOUNTER 2024-10-26 08:51 | Outpatient (REF) | payer MEDICARE, OTHER, MEDICAID, SELFPAY ==
--- OUTSIDE RECORDS SUMMARY | 2024-10-26 08:53 | XMS_ITS | Encounter Summary ---
Author Organization [facility] Address [address] [facility] [address] [place] [address] Phone Care Team Providers Care Water Leak Repairer Name Role Phone Pam Wills MD Primary Care Provider [phone] Encounter Details Date Type Department Care Team (Late Contact Info) Description 08/03/2021 Documentation Only [facility] [address] [facility] [address] [place] [phone] Jaylon Barreto MD [address] [address] Social History Tobacco Use Types [...] Department Care Team (Late Contact Info) Description 10/21/2025 3:00 PM EDT Office Visit [facility] [address] [address] Jaylon Barreto MD [address] [phone] documented as of this encounter Visit Diagnoses Not on filedocumented in this encounter Care Teams Water Leak Repairer Relationship Specialty Start Date End Date Pam Wills MD [address] [place], [place] PCP - General Internal Medicine 05/11/21 documented as of this encounter
--- OUTSIDE RECORDS SUMMARY | 2024-10-26 08:53 | XMS_ITS | Encounter Summary ---
Author Organization [place] [address] Care Team Providers Care Security Support Analyst Name Role Phone Best Diaz MD Primary Care Provider [phone] Reason for Visit * Reason Onset Date Comments Fitting for DME 10/23/2024 Respiratory [facility] supplies [facility] Encounter Details Date Type Department Care Team (Late st Contact Info) Description 10/23/[address] [place] [address] Rio Diaz MA Fitting for DME ([facility] supplies [facility]) Social History Tobacco Use Types Packs/Day Years [...] Orientation Straight 08/28/2024 8: 55 PM EST documented as of this encounter Functional Status * Are you deaf or do you have serious difficulty hearing? Answer Date of Assessment Author No 08/27/2024 3:32 AM EST Britni Fuentes RN * Are you blind or do you have serious difficulty seeing, even when wearing glasses? Answer Date of Assessment Author No 08/27/2024 3:32 AM Lore Morrison RN * Do you have serious difficulty walking or climbing stairs? Answer Date of Assessment Author No 08/27/2024 3:32 AM Britni Morrison RN * Do you have serious difficulty dressing or bathing? Answer Date of Assessment Author No 08/27/2024 3:32 AM Britni Morrison RN * Because of a physical, mental, or emotional condition, do you have serious difficulty doing errandsalone such as visiting the doctor? Answer Date of Assessment Author No 08/27/2024 3:32 AM Britni Morrison RN documented as of this encounter Mental Status * Because of a physical, mental, or emotional condition, do you have serious difficulty concentrating, remembering, or making decisions? (5 years old or older) Answer Entry Date Author No 08/27/2024 3:32 AM Britni Morrison RN documented in this encounter Progress Notes * Rio Diaz MA - 10/23/2024 2:58 PM EDT Respiratory Supplies faxed to [facility]. documented in this encounter Plan of Treatment Upcoming Encounters Date Type Department Care Team (Late st Contact Info) Description 12/03/2024 1:30 PM EDT Office Visit Infectious Disease - [place] [address] [phone] Natalie Govea MD [address] [address] 05/08/2025 10:45 AM EDT Office Visit Pulmonolgy - [place] [address] [phone] Fco Parsons MD [address] [address] documented as of this encounter Visit Diagnoses Not on filedocumented in this encounter Care Teams Security Support Analyst Relationship Specialty Start Date End Date Best Diaz MD [address] [facility] [place] [address] PCP - General 07/13/23 documented as of this encounter
--- OUTSIDE RECORDS SUMMARY | 2024-10-26 08:53 | XMS_ITS | Encounter Summary ---
Author Organization [facility] Address [address] [place] [address] Care Team Providers Care Spanish Linguist Name Role Phone Best Diaz MD Primary Care Provider [phone] Reason for Visit * Reason Comments Asthma 6 mth f/u asthma Encounter Details Date Type Department Care Team ([facility] st Contact Info) Description 10/22/2024 11:30 AM EDT [facility] [address] [phone] Fco Parsons MD [address] [address] Asthma-COPD overlap syndrome (CMS/HCC) (Primary Dx); PAKO (mycobacterium avium-intracellulare) (CMS/HCC) Social History Tobacco Use Types Packs/Day Years Used Date Smoking Tobacco: Never Smokeless Tobacco: Never Tobacco Cessation:Counseling Given: Not Answered Alcohol Use Standard Drinks/Week Comments No 0 [...] PM EST documented as of this encounter Last Filed Vital Signs Vital Sign Reading Time Taken Comments Blood Pressure 126/58 10/22/2024 11:48 AM EDT Pulse 105 10/22/2024 11:48 AM EDT Temperature 36.6 ??C (97.8 ??F) 10/22/2024 11:48 AM E DT Respiratory Rate 20 10/22/2024 11:48 AM EDT Oxygen Saturation 97% 10/22/2024 11:48 AM EDT Inhaled Oxygen Concentration - - Weight 61.2 kg (135 lb) 10/22/2024 11:48 AM EDT Height 160 cm (5' 3 ) 10/22/2024 11:48 AM EDT Body Mass Index 23.91 10/22/2024 11:48 AM EDT documented in this encounter Functional Status * Are you deaf or do you have serious difficulty hearing? Answer Date of Assessment Author No 08/27/2024 3:32 AM Britni Morrison RN * Are you blind or do [...] Britni Morrison RN documented in this encounter Ordered Prescriptions Prescription Sig Dispense Quantity Refills Last Filled Start Date End Date albuterol HFA (PROAIR HFA ; PROVENTIL HFA ; VENTOLIN HFA) 90 mcg/actuation inhaler Inhale 2 puffs by mouth every 6 (six) hours if needed for wheezing. 6.7 g 3 10/22/2024 10/22/2025 fluticasone-salmet milo (ADVAIR DISKUS) 250-50 mcg/dose diskus inhaler Inhale 1 puff by mouth 2 (two) times a day. 1 each 11 10/22/2024 10/22/2025 documented in this encounter Progress Notes * Fco Parsons MD - 10/22/2024 11:30 AM EDT ADULT PULMONARY CONSULT CHIEF COMPLAINT or REASON FOR CONSULTATION: Asthma (6 mth f/u asthma) HISTORY OF PRESENT ILLNESS: Kristin Villagomez is a 84 y.o. years old, female with a history of chronic bronchiectasis and history of MAC chronic infections. I last saw her 6 months ago, she was admitted for exacerbation in August, this was likely due to viral etiology is multiple members of her family was sick at home. A CT scan of the chest on June 2023 show resolution of some infiltrates and opacities in the rightlung. She is coming today accompanied by her daughter. Currently on Wixela and rarely needs as needed albuterol. She has no chronic cough, chest pain or weight loss. ALLERGIES: No Known Allergies ACTIVE MEDICATIONS: Outpatient Medications Marked as Taking for the 10/22/24 encounter (Office Visit) with Fco Parsons MD Medication Sig Dispense Refill albuterol HFA (PROAIR HFA ; PROVENTIL HFA ; VENTOLIN HFA) 90 mcg/actuation inhaler Inhale 1-2 puffsby mouth every 6 (six) hours if needed for wheezing or shortness of breath (Cough). alendronate (FOSAMAX) 70 mg tablet Take 1 tablet (70 mg total) by mouth every 7 (seven) days. amLODIPine (NORVASC) 5 mg tablet Take 1 tablet (5 mg total) by mouth 1 (one) time each day. apixaban (ELIQUIS) 5 mg tablet Take 1 tablet (5 mg total) by mouth 2 (two) times a day. calcium carbonate-vit D3-min 600 mg calcium- 400 unit tablet Take 1 tablet by mouth 2 (two) times aday. cholecalciferol (VITAMIN D-3) 25 mcg (1,000 unit) capsule Take 1 capsule (1,000 Units total) by mouth 1 (one) time each day. denosumab (Prolia) 60 mg/mL syringe syringe Inject 1 mL (60 mg total) under the skin 1 (one) time. dulaglutide (Trulicity) 1.5 mg/0.5 mL pen injector injection Inject 0.5 mL (1.5 mg total) under theskin 1 (one) time per week. MONDAY fluticasone propionate (FLONASE) 50 mcg/actuation nasal spray Administer 2 sprays into affected nostril(s) 1 (one) time each day if needed for allergies. fluticasone-salmeterol (ADVAIR DISKUS) 250-50 mcg/dose diskus inhaler Inhale 1 puff by mouth 2 (two) times a day. 1 gabapentin (NEURONTIN) 100 mg capsule Take 1 capsule (100 mg total) by mouth at bedtime. isosorbide mononitrate (IMDUR) 30 mg 24 hr tablet Take 1 tablet (30 mg total) by mouth 1 (one) timeeach day. Jardiance 10 mg tablet Take 1 tablet (10 mg total) by mouth 1 (one) time each day. magnesium oxide (MAG-OX) 400 mg magnesium tablet Take 1 tablet (400 mg total) by mouth 1 (one) timeeach day. metFORMIN (GLUCOPHAGE) 1,000 mg tablet Take 1 tablet (1,000 mg total) by mouth 2 (two) times a day with meals. metoprolol succinate (TOPROL-XL) 100 mg 24 hr tablet Take 1 tablet (100 mg total) by mouth 1 (one) time each day. Do not crush or chew. omeprazole (PriLOSEC) [address] capsule Take 1 capsule (20 mg total) by mouth 1 (one) time each day. rosuvastatin (CRESTOR) 10 mg tablet Take 1 tablet (10 mg total) by mouth 1 (one) time each day. tiZANidine (ZANAFLEX) 2 mg tablet Take 1 tablet (2 mg total) by mouth 1 (one) time each day. [DISCONTINUED] fluticasone-salmeterol (ADVAIR DISKUS) 250-50 mcg/dose diskus inhaler Inhale 1 puff by mouth. PROVIDER ATTESTS THAT THE MEDICATION LIST WAS OBTAINED, REVIEWED AND UPDATED. 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 OCCUPATION OR OCCUPATION EXPOSURE: SOCIAL HISTORY Social History Socioeconomic History Marital status: Spouse name: Not on file Number of children: Not on file Years of education: Not on file Highest education level: Not on file Occupational History Not on file Tobacco Use Smoking status: Never Smokeless tobacco: Never Substance and Sexual Activity Alcohol use: No Drug use: No Sexual activity: Not on file Other Topics Concern Not on file Social History Narrative Not on file IMMUNIZATION: Immunization History Administered Date(s) Administered Influenza trivalent, 0.5mL, preservative free (Fluarix; FluLaval; Fluzone) ages 6mo and older (Afluria) 3 years and older 05/29/2015 Influenza trivalent, with preservative (Fluzone; Afluria) 6mo and older 05/03/2017 Pneumococcal conjugate 13 valent (Prevnar 13, PCV13) 2mo and older 05/03/2017 Pneumococcal polysaccharide 23 valent (Pneumovax 23) 2yo and older 05/01/2015 PHYSICAL EXAM: Visit Vitals BP 126/58 (Patient Position: Sitting, BP Cuff Size: Adult) Pulse 105 Temp 36.6 ??C (97.8 ??F) (Temporal) Resp 20 Ht 1.6 m (63 ) Wt 61.2 kg (135 lb) SpO2 97% BMI 23.91 kg/m?? Smoking Status Never BSA 1.64 m?? APPEARANCE: Alert and in no acute distress. Elderly, here with daughter EYES: Conjunctiva and sclera normal. NOSE/SINUS: Nares normal. Septum midline. Mucosa No drainage or sinus tenderness. MOUTH/THROAT: no erythema or exudates. Mallampati class 2 NECK: Neck supple, thyroid symmetric and of normal size. HEART: RRR with normal S1 and S2, no murmurs, no gallops, no JVD appreciated. LUNG: CTA b/l, no wheezing or bronchial bs ABDOMEN: Bowel sounds normoactive, soft, non-tender EXTREMITIES: no clubbing, cyanosis, or edema. LYMPH NODES: No cervical and supra-clavicular lymphadenopathy. NEURO: Awake, alert and oriented x 3, no focalization Derm: no rash DIAGNOSTIC DATA: CARDIOPULMONARY TEST: Last Pulmonary function Test showed: Last Pulmonary function Test showed: Impression FEV1/FVC 53%. FEV1 0.87 and 51%. FVC 70%. No bronchodilator response. TLC 85%. RV 106%. DLCO 56%. Shape of flow volume loop show neither intrathoracic nor extrathoracic obstruction. Moderately severe obstruction. No restriction. When adjusted no decrease in diffusion. Last Resulted: 02/23/23 RADIOLOGIST IMAGING:FINDINGS: LUNGS/PLEURA: Improved diffuse bronchial wall thickening, centrilobular nodularity, mild bronchiectasis, mucous plugging, and atelectasis most pronounced in the right middle and lower lobes. No new consolidation, pleural effusion, or pneumothorax. MEDIASTINUM: Small thyroid nodules are similar compared to prior. No mediastinal or hilar lymphadenopathy. Esophagus is within normal limits. Cardiac chambers are normal in size. No pericardial effusion. No significant coronary artery calcifications CHEST WALL: No axillary lymphadenopathy or superficial hematoma. UPPER ABDOMEN:Hepatic steatosis with hepatomegaly and nodular liver contour suggesting cirrhosis. Right adrenal nodule is unchanged compatible with an adenoma. BONES: Right rotator cuff repair. Degenerative changes seen throughout the bones. IMPRESSION: No acute findings in the chest. 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 Hepatic steatosis with hepatic surface nodularity raising the possibility of early cirrhosis. -------- FINAL REPORT -------- Dictated By: HUGO MURILLO Dictated Date: 09/04/2024 09:37 ET ASSESSMENT: ICD-10-CM ICD-9-CM 1. Asthma-COPD overlap syndrome ([facility]) J44.89 493.20 Respiratory Care Supplies 2. PAKO (mycobacterium avium-intracellulare) ([facility]) A31.0 031.0 PLAN: The patient will continue Wixela and as needed albuterol, the last chest x-ray 6 weeks ago showed no acute infiltrates. She has chronic cough, hemoptysis or significant weight loss. Will continue watching the PAKO infection. I will get her a new Acapella airway clearing device - Follow up with Best Diaz MD for the other co-morbilities. - I spend 32 Minutes on this visit. The patient was educated about his problems, where assessment and plan was reviewed and explained, All questions were answered. This includes: Preparing to see the patient, obtaining and/or reviewing separately obtained history, performing a medically appropriate exam, ordering medications, tests, or procedures, documenting clinical information in the electronic health record, and independently interpreting results. RETURN TO THE NEXT VISIT: Based on physical exam, symptomatology, tests requested and baseline pulmonary evaluation/disease, I instructed the patient to come back to see me in 6 mths for reevaluation after the test has been done or earlier if the patient needed. Thanks Best Diaz MD for allowing me to have the opportunity to assist in the care of this patient. documented in this encounter Plan of Treatment Upcoming Encounters Date Type Department Care Team (Late st Contact Info) Description 12/03/2024 1:30 PM EDT Office Visit Infectious Disease - [place] [address] [phone] Natalie Govea MD [address] [address] 05/08/2025 10:45 AM EDT Office Visit Pulmonolgy - [place] [address] [phone] Fco Parsons MD 175 [facility] [address] [place] [address] documented as of this encounter Visit Diagnoses Diagnosis Asthma-COPD overlap syndrome ([facility])- Primary PAKO (mycobacterium avium-intracellulare) ([facility]) Pulmonary diseases due to other mycobacteria documented in this encounter Discontinued Medications Medication Sig Discontinue Reason Start Date End Da te fluticasone-salmeterol (ADVAIR DISKUS) 250-50 mcg/dose diskus inhaler Inhale 1 puff by mouth. Reorder 10/22/2024 documented as of this encounter Orders General Supply Count Last Ordered Date First Or dered Date RESPIRATORY CARE SUPPLIES 1 10/22/2024 documented in this encounter Care Teams Spanish Linguist Relationship Specialty Start Date End Date Best Diaz MD [address] [place] [address] [address] [facility] [place] [address] PCP - General 07/13/23 documented as of this encounter
--- OUTSIDE RECORDS SUMMARY | 2024-10-26 08:53 | XMS_ITS | Clinical Summary ---
Author Organization [facility]. Address [address] [phone] Phone Care Team Providers Care Academic Success Coordinator Name Role Phone Pam Wills MD Primary Care Provider [phone] Allergies No known active allergies Medications amLODIPine [...] chronic kidney disease 05/11/2021 Renal osteodystrophy 05/11/2021 Encounters Date Type Department Care Team Description 10/17/2024 1:15 PM EDT [facility] Visit [facility] [address] [place] [address] Jaylon Barreto MD Stage 3a chronic kidney disease (HCC) (Primary Dx); Renal osteodystrophy; Persistent proteinuria from Last 3 Months Family History Relation Status Comments Father Mother [...] Sign Reading Time Taken Comments Blood Pressure 140/70 10/17/2024 1:04 PM EDT Pulse 100 10/17/2024 1:04 PM EDT Temperature - - Respiratory Rate - - Oxygen Saturation 94% 10/17/2024 1:04 PM EDT Inhaled Oxygen Concentration - - Weight 62.5 kg (137 lb 12.8 oz) 05/22/2024 2:49 PM EDT Height - - Body Mass Index - - Plan of Treatment Upcoming Encounters Date Type Department Care Team (Late st Contact Info) Description 10/21/2025 3:00 PM EDT Office Visit [facility] [address] [facility] [address] [place] [address] Jaylon Barreto MD [address] [phone] Health Maintenance Due Date Last Done Comments [...] Most Recently Relevant to Health Maintenance Insurance [facility] [place] [address] [facility] [employer] Care Teams Academic Success Coordinator Relationship Specialty Start Date End Date Pam Wills MD [address] [place] [address] PCP - General Internal Medicine 05/11/21
--- OUTSIDE RECORDS SUMMARY | 2024-10-26 08:53 | XMS_ITS | Clinical Summary ---
Author Organization 175 [facility] Address [address] [place] [address] Phone Care Team Providers Care Microbiology Lab Analyst Name Role Phone Best Diaz MD Primary Care Provider [phone] Allergies No known active allergies Medications magnesium [...] mouth 1 (one) time each day. 10/06/19 24 025 Active calcium carbonate-vit D3-min 600 mg [...] 1 (one) time per week. Monday12/10/19 Active fluticasone propionate (FLONASE) 50 mcg/actuation nasal [...] mg total) by mouth at bedtime. 11/12/19 20 Active omeprazole (PriLOSEC) [address] capsule Take 1 capsule (20 mg total) by mouth 1 (one) time each day. 05/05/20 Active tiZANidine (ZANAFLEX) 2 mg tablet Take 1 tablet (2 mg total) by mouth 1 (one) time each day. Active ipratropium (ATROVENT) 0.02 % nebulizer solutionIndicati ons:COPD exacerbation ([facility]) Take 2.5 mL (0.5 mg total) by nebulization 4 (four) times a day. 75 mL 08/28/19 25 026 Active Additional Information Patient not taking.Reported on 10/22/2024 metoprolol succinate (TOPROL-XL) 100 mg 24 hr [...] (one) time each day. 08/11/19 25 Active fluticasone-salm eterol (ADVAIR DISKUS) 250-50 mcg/dose diskus inhaler Inhale 1 puff by mouth 2 (two) times a day. 1 each 11 10/23/19 25 026 Active albuterol HFA (PROAIR HFA ; PROVENTIL HFA ; VENTOLIN HFA) 90 mcg/actuation inhaler Inhale 2 puffs by mouth every 6 (six) hours if needed for wheezing. 6.7 g 3 10/23/19 25 026 Active fluticasone-salm eterol (ADVAIR DISKUS) 250-50 mcg/dose diskus inhaler Inhale 1 puff by mouth. 025 Discontinu ed(Reorder ) benzonatate (TESSALON) 200 mg capsule Take 1 capsule (200 mg total) by mouth 3 (three) times a day if needed for cough. Do not crush or chew. 42 capsule 09/06/19 25 025 Active Problems Problem Noted Date [...] Encounters Date Type Department Care Team Description 10/23/2024 Telephone Pulmonolgy [facility] [address] [phone] Rio Diaz [place] Fitting for DME (Respiratory Care supplies [employer]) 10/22/2024 11:30 AM EDT [facility] [address] [phone] Fco Parsons MD Asthma-COPD overlap syndrome (CMS/HCC) (Primary Dx); PAKO (mycobacterium avium-intracellulare) (CMS/HCC) 09/04/2024 8:45 AM EST - 09/06/2024 12:42 PM EST Hospital Encounter [facility] [address] [place] [address] Osmany Oquendo MD Bukalo, Nermina, MD Zipagan, James T, MD Sepsis with acute renal failure without septic shock, due to unspecified organism, unspecified acute renal failure type (CMS/HCC) (Primary Dx) Discharge Disposition: Home-Health Care [facility] 08/28/2024 5:53 PM EST - 08/29/2024 1:35 AM EST Emergency [facility] Emergency [address] [place] [address] COPD exacerbation (CMS/HCC) (Primary Dx) Discharge Disposition: Home or Self Care 08/27/2024 2:00 AM EST - 08/27/2024 3:33 AM EST Emergency [facility] Emergency [address] [place] [address] Marshall Smith MD Pneumonia of right middle [...] 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) Hyperlipidemia 05/03/2017 DX:Hyperlipidemi a Hypertension 05/03/2017 DX:Hypertension [...] Mass Index 23.91 10/22/2024 11:48 AM EDT Plan of Treatment Upcoming Encounters Date Type Department Care Team (Late st Contact Info) Description 12/03/2024 1:30 PM EDT Office Visit Infectious Disease - [place] [address] [phone] Natalie Govea MD [address] [address] 05/08/2025 10:45 AM EDT Office Visit Pulmonolgy - [place] [address] [phone] Fco Parsons MD [address] [address] Health Maintenance Due Date Last Done Comments Diabetes: Annual Foot Exam 1950 Diabetes: Annual Retina Eye Exam 1950 DTaP,Tdap,and Td Vaccines (1 - Tdap) 1958 Zoster Vaccines (1 of 2) 1989 RSV Immunization Adult Patients (1 - 1-dose 75+ series) 2014 Depression Screening 06/26/2022 Medicare Annual Wellness Visit 06/26/2022 Osteoporosis Screening (Bone Density Screening) 06/26/2022 Social Influencers of Health Screening 06/26/2022 Diabetes: Annual Urine Albumin-Creatinine Ratio (uACR) 07/09/2022 06/05/2019 COVID-19 Vaccine ( season) 2024 Breast Cancer Screening 04/04/2024 07/11/20 19, 07/01/2019, 06/28/2018 Cholesterol Screening (Lipid Panel) 06/05/2024 06/05/2019 Diabetes: Blood Sugar Control Test (HGBA1C) 03/04/2025 09/04/2024, 06/05/2019, 06/05/2019 Influenza Vaccine (Season Ended) 2025 05/03/2017, 05/29/2015 Diabetes: Annual GFR (Glomerular Filtration Rate) 09/05/2025 [...] ECG 12-LEAD STAT 09/04/2024 8:56 AM EST OR CRITICAL CARE 30-74 MINUTES Routine 09/04/2024 8:41 [...] - 100 mg/dL 09/06/2024 11:32 AM EST [facility] Blood Capillary blood specimen / Unknown 09/06/2024 11:30 AM EST 09/06/2024 11:33 AM EST us John Cope MD LAB POINT OF CARE TE ST DOCKED DEVICE UNSOLICITED RESULTS Final Result [facility] [address] [place] [address], * (ABNORMAL) CBC - Every 3 Days (09/06/2024 6:53 AM EST) WBC 11.8(H) 4.8 - 10.8 K/mcL LAB HEMETOLOGY METHOD 09/06/2024 7:36 AM [facility] RBC 5.00(H) 3.80 - 4.80 M/mcL LAB HEMETOLOGY METHOD 09/06/2024 7:36 AM [facility] Hemoglobin 12.9 11.5 - 16.0 g/dL LAB HEMETOLOGY METHOD 09/06/2024 7:36 AM [facility] Hematocrit 38.8 35.0 - 47.0 % LAB HEMETOLOGY METHOD 09/06/2024 7:36 AM [facility] MCV 77.4(L) 79.0 - 98.0 FL LAB HEMETOLOGY METHOD 09/06/2024 7:36 AM [facility] MCH 25.7(L) 27.0 - 32.0 pcg LAB HEMETOLOGY METHOD 09/06/2024 7:36 AM [facility] MCHC 33.2 32.0 - 37.0 g/dL LAB HEMETOLOGY METHOD 09/06/2024 7:36 AM [facility] RDW 13.5 11.0 - 15.0 % LAB HEMETOLOGY METHOD 09/06/2024 7:36 AM [facility] Platelets 328 130 - 400 K/mcL LAB HEMETOLOGY METHOD 09/06/2024 7:36 AM [facility] MPV 9.2 7.0 - 11.0 FL LAB HEMETOLOGY METHOD 09/06/2024 7:36 AM [facility] NRBC 0.0 <1.0 % LAB HEMETOLOGY METHOD 09/06/2024 7:36 AM EST [facility] NRBC Absolute 0.00 <0.10 K/mcL LAB HEMETOLOGY METHOD 09/06/2024 7:36 AM EST [facility] Blood Venous blood specimen / Unknown Venipuncture / Unknown 09/06/2024 6:53 AM EST 09/06/2024 7:20 AM EST John Cope MD LAB BLOOD ORDERABLES Final Re sult Performing Organization Address [facility]/ZIP Co de Phone Number [facility] [address] [place] [address], [place] [phone] * SST tube (09/06/2024 6:52 AM EST) Extra Tube Hold for add-ons. 09/06/2024 9:01 AM EST [facility] Comment:Auto resulted. Blood Venous blood specimen / Unknown Venipuncture / Unknown 09/06/2024 6:52 AM EST 09/06/2024 7:29 AM EST us John Cope MD LAB BLOOD ORDERABLES Final Re sult Performing Organization Address [facility]/ZIP Co de Phone Number [facility] [address] [place] [address], [place] [phone] * Activated Partial Thromboplastin Time - STAT (09/05/2024 12:31 PM EST) aPTT 24.1 24.1 - 39.3 sec LAB COAGULATION METHOD 09/05/2024 12:56 PM EST [facility] Blood Venous blood specimen / Unknown Venipuncture / Unknown 09/05/2024 12:31 PM EST 09/05/2024 12:42 PM EST us John Cope MD LAB BLOOD ORDERABLES Final Re sult Performing Organization Address [facility]/ZIP Co de Phone Number [facility] [address] [place] [address], [place] [phone] * Prothrombin Time with INR - STAT (09/05/2024 12:31 PM EST) [facility] Protime 12.3 10.6 - 13.9 sec LAB COAGULATION METHOD 09/05/2024 12:56 PM EST [facility] INR 1.0 LAB COAGULATION METHOD 09/05/2024 12:56 PM [facility] Blood Venous blood specimen / Unknown Venipuncture / Unknown 09/05/2024 12:31 PM EST 09/05/2024 12:42 PM EST John Cope MD LAB BLOOD ORDERABLES Final Re sult Performing Organization Address [facility]/ZIP Co de Phone Number [facility] [address] [place] [address], [place] [phone] * Hepatic Function Panel - STAT (09/05/2024 12:31 PM EST) [facility] Total Protein 6.9 6.0 - 8.0 g/dL LAB CHEMISTRY METHOD 09/05/2024 1:20 PM [facility] Albumin 3.5 3.2 - 5.0 g/dL LAB CHEMISTRY METHOD 09/05/2024 1:20 PM [facility] Total Bilirubin 0.8 0.0 - 1.4 mg/dL LAB CHEMISTRY METHOD 09/05/2024 1:20 PM [facility] Bilirubin, Direct 0.2 0.0 - 0.3 mg/dL LAB CHEMISTRY METHOD 09/05/2024 1:20 PM [facility] Bilirubin, Indirect 0.6 0.0 - 1.1 mg/dL LAB CHEMISTRY METHOD 09/05/2024 1:20 PM [facility] ALT (SGPT) 21 10 - 60 unit/L LAB CHEMISTRY METHOD 09/05/2024 1:20 PM [facility] AST (SGOT) 13 10 - 42 unit/L LAB CHEMISTRY METHOD 09/05/2024 1:20 PM [facility] Alkaline Phosphatase 67 42 - 121 unit/L LAB CHEMISTRY METHOD 09/05/2024 1:20 PM [facility] Blood Venous blood specimen / Unknown Venipuncture / Unknown 09/05/2024 12:31 PM EST 09/05/2024 12:42 PM EST us John Cope MD LAB BLOOD ORDERABLES Final Re sult [facility] [address] [place] [address], [place] [phone] * (ABNORMAL) CBC auto differential (09/05/2024 6:38 AM EST) Only the most recent of4 resultswithin the time period is included. WBC 11.7(H) 4.8 - 10.8 K/mcL LAB HEMETOLOGY METHOD 09/05/2024 7:05 AM [facility] RBC 4.90(H) 3.80 - 4.80 M/mcL LAB HEMETOLOGY METHOD 09/05/2024 7:05 AM [facility] Hemoglobin 12.7 11.5 - 16.0 g/dL LAB HEMETOLOGY METHOD 09/05/2024 7:05 AM [facility] Hematocrit 38.0 35.0 - 47.0 % LAB HEMETOLOGY METHOD 09/05/2024 7:05 AM [facility] MCV 77.4(L) 79.0 - 98.0 FL LAB HEMETOLOGY METHOD 09/05/2024 7:05 AM [facility] MCH 25.9(L) 27.0 - 32.0 pcg LAB HEMETOLOGY METHOD 09/05/2024 7:05 AM [facility] MCHC 33.4 32.0 - 37.0 g/dL LAB HEMETOLOGY METHOD 09/05/2024 7:05 AM [facility] RDW 13.4 11.0 - 15.0 % LAB HEMETOLOGY METHOD 09/05/2024 7:05 AM [facility] Platelets 339 130 - 400 K/mcL LAB HEMETOLOGY METHOD 09/05/2024 7:05 AM [facility] MPV 9.2 7.0 - 11.0 FL LAB HEMETOLOGY METHOD 09/05/2024 7:05 AM [facility] NRBC 0.0 <1.0 % LAB HEMETOLOGY METHOD 09/05/2024 7:05 AM [facility] NRBC Absolute 0.00 <0.10 K/mcL LAB HEMETOLOGY METHOD 09/05/2024 7:05 AM [facility] Neutrophils Relative 65.4 % LAB HEMETOLOGY METHOD 09/05/2024 7:05 AM [facility] Lymphocytes Relative 25.1 % LAB HEMETOLOGY METHOD 09/05/2024 7:05 AM [facility] Monocytes Relative 7.9 % LAB HEMETOLOGY METHOD 09/05/2024 7:05 AM [facility] Eosinophils Relative 0.4 % LAB HEMETOLOGY METHOD 09/05/2024 7:05 AM [facility] Basophils Relative 0.1 % LAB HEMETOLOGY METHOD 09/05/2024 7:05 AM [facility] Immature Granulocytes Relative 1.1 % LAB HEMETOLOGY METHOD 09/05/2024 7:05 AM [facility] Neutrophils Absolute 7.66(H) 1.50 - 7.00 K/mcL LAB HEMETOLOGY METHOD 09/05/2024 7:05 AM EST [facility] Lymphocytes Absolute 2.94 1.00 - 5.00 K/mcL LAB HEMETOLOGY METHOD 09/05/2024 7:05 AM EST [facility] Monocytes Absolute 0.93 0.20 - 1.00 K/mcL LAB HEMETOLOGY METHOD 09/05/2024 7:05 AM EST [facility] Eosinophils Absolute 0.05 0.00 - 0.50 K/mcL LAB HEMETOLOGY METHOD 09/05/2024 7:05 AM EST [facility] Basophils Absolute 0.01 0.00 - 0.20 K/mcL LAB HEMETOLOGY METHOD 09/05/2024 7:[address] [facility]) [facility] Immature Granulocytes Absolute 0.13(H) 0.00 - 0.03 K/mcL LAB HEMETOLOGY METHOD 09/05/2024 7:05 AM [facility] Blood Venous blood specimen / Unknown Venipuncture / Unknown 09/05/2024 6:38 AM EST 09/05/2024 6:47 AM EST us Andres GARCIA LAB BLOOD ORDERABLES Final Res ult Performing Organization Address City/[facility]/ZIP Co de Phone Number [facility] [address] [place] [address], * Lactate (09/05/2024 6:38 AM EST) Only the most recent of3 resultswithin the time period is included. Lactate 1.5 0.4 - 2.0 mmol/L LAB CHEMISTRY METHOD 09/05/2024 7:19 AM EST [facility] Blood Venous blood specimen / Unknown Venipuncture / Unknown 09/05/2024 6:38 AM EST 09/05/2024 6:47 AM EST us Andres GARCIA LAB BLOOD ORDERABLES Final Res ult [facility] [address] [place] [address], [place] [phone] * (ABNORMAL) Basic metabolic panel (09/05/2024 6:38 AM EST) Only the most recent of2 resultswithin the time period is included. Sodium 138 133 - 145 mmol/L LAB CHEMISTRY METHOD 09/05/2024 7:21 AM [facility] Potassium 4.5 3.5 - 5.5 mmol/L LAB CHEMISTRY METHOD 09/05/2024 7:21 AM [facility] Chloride 104 96 - 110 mmol/L LAB CHEMISTRY METHOD 09/05/2024 7:21 AM [facility] CO2 30 21 - 32 mmol/L LAB CHEMISTRY METHOD 09/05/2024 7:21 AM [facility] Anion Gap 4 3 - 11 LAB CHEMISTRY METHOD 09/05/2024 7:21 AM [facility] Glucose 171(H) 70 - 100 mg/dL LAB CHEMISTRY METHOD 09/05/2024 7:21 AM [facility] BUN 36(H) 5 - 25 mg/dL LAB CHEMISTRY METHOD 09/05/2024 7:21 AM [facility] Creatinine 1.08 0.50 - 1.10 mg/dL LAB CHEMISTRY METHOD 09/05/2024 7:21 AM [facility] eGFR 50(L) >=60 mL/min/1. 73m2 LAB CHEMISTRY METHOD 09/05/2024 7:21 AM [facility] Comment:Calculation based on the??Chronic Kidney Disease Epidemiology Collaboration (CKD-EPI) equation refit??without adjustment for race. BUN/Creatinine Ratio 33.3 LAB CHEMISTRY METHOD 09/05/2024 7:21 AM [facility] Calcium 10.2 8.5 - 10.5 mg/dL LAB CHEMISTRY METHOD 09/05/2024 7:21 AM [facility] Blood Venous blood specimen / Unknown Venipuncture / Unknown 09/05/2024 6:38 AM EST 09/05/2024 6:46 AM EST Andres GARCIA LAB BLOOD ORDERABLES Final Res ult Performing Organization Address [facility] de Phone Number [facility] [address] [place] [address], * Legionella antigen urine, EIA (09/04/2024 12:28 PM EST) Legionella Antigen, Ur Negative Negative 09/04/2024 2:21 PM EST [facility] Urine Urine specimen from urethra / Unknown Non-blood Collection / Unknown 09/04/2024 12:28 PM EST 09/04/2024 12:42 PM EST Narrative [facility] - 09/04/2024 2:21 PM EST Negative for Legionella pneumophilia serogroup 1 antigen. This presumptive result suggests no current or recent infection due to L. pneumophilia serogroup 1. Culture is recommended if Legionella infection is till suspected, as other serogroups and species of Legionella are not detected by this test. Laron Maldonado MD LAB URINE ORDERABLES Final Res ult Performing Organization Address [facility] de Phone Number [facility] [address] [place] [address], * Streptococcus pneumoniae antibodies, IgG, 23 serotypes (09/04/2024 11:55 AM EST) Serotype 1 (1) 1.1 >=1.0 mcg/mL 09/10/2024 [...] BELOW >=1.0 mcg/mL 09/10/2024 3:22 PM EST [facility] Comment:RESULT: Unable to pe rform test due to a reagent issue. Serotype 9V 0.1 >=1.0 mcg/mL 09/10/2024 3:22 PM EST [facility] Serotype 33F 0.6 >=1.0 mcg/mL 09/10/2024 3:22 PM EST [facility] Interpretation SEE BELOW 09/10/2024 3:22 PM EST [facility] Comment: Overall interpretation of pneumococcal antibody serology [...] developed and its performance characteristics determined by [facility] in a manner consistent with CLIA requirements. This test has not been cleared or approved by the U.S. Food and Drug Administration. Test Performed by: [facility] - [address] [address] Spinning Mule Operator: Iris Ruiz Ph.D.; CLIA# [id number] Blood Venous blood specimen / Unknown Venipuncture / Unknown 09/04/2024 11:55 AM EST 09/04/2024 12:00 PM EST us Laron Maldonado MD LAB BLOOD ORDERABLES Final Res ult [facility] [address] [place] [address] * Troponin I high sensitivity (09/04/2024 10:37 AM EST) Only the most recent of6 resultswithin the time period is included. High Sensitivity Troponin I 6 <=54 ng/L LAB CHEMISTRY METHOD 09/04/2024 11:09 AM EST [facility] Blood Venous blood specimen / Unknown Venipuncture / Unknown 09/04/2024 10:37 AM EST 09/04/2024 10:44 AM EST Narrative [facility] - 09/04/2024 11:09 AM EST High levels of biotin in samples may falsely decrease hsTroponin values. ??Use caution when interpreting hsTroponin results in patients taking biotin who exhibit renal impairment (eGFR <60) or in patients taking more than 20 mg/day of biotin. us Osmany Oquendo MD LAB BLOOD ORDERABLES Final Resu lt Performing Organization Address [facility]/ZIP Co de Phone Number [facility] [address] [place] [address], * CT Chest wo Contrast (09/04/2024 9:19 [...] Signed Date: 09/04/2024 09:41 ET Workstation ID: [id number] Transcribed By: Self Edit Transcribed Date: 09/04/2024 [...] Signed Date: 09/04/2024 09:41 ET Workstation ID: [id number] Transcribed By: Self Edit Transcribed Date: 09/04/2024 09:37 ET us Osmany Oquendo MD IMG CT PROCEDURES Final Result * Blood Culture, Peripheral Draw #2 (09/04/2024 9:10 AM EST) Only the most recent of2 resultswithin the time period is included. [facility] Culture, Blood No growth at 5 days 09/09/2024 10:01 AM EST [facility] Blood Venous blood specimen / Unknown Venipuncture / Unknown 09/04/2024 9:10 AM EST 09/04/2024 9:21 AM EST us Osmany Oquendo MD LAB MICROBIOLOGY - [facility] Final Result [facility] [address] [place] [address], [place] [phone] * (ABNORMAL) Hemoglobin A1c (09/04/2024 9:10 AM EST) Pathologist [facility] Hemoglobin A1C 8.5(H) <6.5 % LAB CHEMISTRY METHOD 09/04/2024 5:11 PM EST [facility] Mean Bld Glu Estim. 197 mg/dL LAB CHEMISTRY METHOD 09/04/2024 5:11 PM EST [facility] Blood Venous blood specimen / Unknown Venipuncture / Unknown 09/04/2024 9:10 AM EST 09/04/2024 9:26 AM EST us Laron Maldonado MD LAB BLOOD ORDERABLES Final Res ult [facility] [address] [place] [address], * Respiratory virus panel molecular study (09/04/2024 9:02 AM EST) Only the most recent of3 resultswithin the time period is included. Adenovirus Detection by PCR Not Detected Not Detected LAB MICROBIOLOGY METHOD 09/04/2024 10:45 AM EST [facility] Influenza A PCR Not Detected Not Detected LAB MICROBIOLOGY METHOD 09/04/2024 10:45 AM EST [facility] Influenza B PCR Not Detected Not Detected LAB MICROBIOLOGY METHOD 09/04/2024 10:45 AM EST [facility] Coronavirus 229E Not Detected Not Detected LAB MICROBIOLOGY METHOD 09/04/2024 10:45 AM EST [facility] Coronavirus HKU1 Not Detected Not Detected LAB MICROBIOLOGY METHOD 09/04/2024 10:45 AM EST [facility] Coronavirus OC43 Not Detected Not Detected LAB MICROBIOLOGY METHOD 09/04/2024 10:45 AM EST [facility] Coronavirus NL63 Not Detected Not Detected LAB MICROBIOLOGY METHOD 09/04/2024 10:45 AM EST [facility] Parainfluenza Virus 1 Not Detected Not Detected LAB MICROBIOLOGY METHOD 09/04/2024 10:45 AM EST [facility] Parainfluenza Virus 2 Not Detected Not Detected LAB MICROBIOLOGY METHOD 09/04/2024 10:45 AM [facility] Parainfluenza Virus 3 Not Detected Not Detected LAB MICROBIOLOGY METHOD 09/04/2024 10:45 AM [facility] Parainfluenza Virus 4 Not Detected Not Detected LAB MICROBIOLOGY METHOD 09/04/2024 10:45 AM [facility] RSV PCR Not Detected Not Detected LAB MICROBIOLOGY METHOD 09/04/2024 10:45 AM EST [facility] Human Metapneumovirus A and B Not Detected Not Detected LAB MICROBIOLOGY METHOD 09/04/2024 10:45 AM EST [facility] Rhinovirus/Entero virus Not Detected Not Detected LAB MICROBIOLOGY METHOD 09/04/2024 10:45 AM [facility] Bordetella pertussis Not Detected Not Detected LAB MICROBIOLOGY METHOD 09/04/2024 10:45 AM EST [facility] Bordetella parapertussis Not Detected Not Detected LAB MICROBIOLOGY METHOD 09/04/2024 10:45 AM [facility] Mycoplasma pneumo by PCR Not Detected Not Detected LAB MICROBIOLOGY METHOD 09/04/2024 10:45 AM [facility] Chlamydia pneumoniae Not Detected Not Detected LAB MICROBIOLOGY METHOD 09/04/2024 10:45 AM [facility] SARS COV-2 Not Detected Not Detected LAB MICROBIOLOGY METHOD 09/04/2024 10:45 AM [facility] Swab Nasopharyngeal structure / Unknown Non-blood Collection / Unknown 09/04/2024 9:02 AM EST 09/04/2024 9:[address] [facility] - 09/04/2024 10:45 AM EST Testing was performed using the [employer] Respiratory Pathogen PCR Assay. All results must [...] that are below the limit of detection. Osmany Oquendo MD LAB MICROBIOLOGY - GENERAL GEOVANNY MEANS Final Result [facility] [address] [place] [address], * B-type natriuretic peptide (09/04/2024 9:00 AM EST) Only the most recent of3 resultswithin the time period is included. BNP 75 <=100 pcg/mL LAB CHEMISTRY METHOD 09/04/2024 10:21 AM EST [facility] Blood Venous blood specimen / Unknown Venipuncture / Unknown 09/04/2024 9:00 AM EST 09/04/2024 9:26 AM EST Osmany Oquendo MD LAB BLOOD ORDERABLES Final Resu lt Performing Organization Address City/[facility]/ZIP Co de Phone Number [facility]) [facility] [address] [place] [address], [place] [phone] * ECG 12 lead (09/04/2024 8:56 AM EST) Only the most recent of5 resultswithin the time period is included. Ventricular Rate ECG 116 BPM GEMUSE Atrial Rate 116 BPM GEMUSE P-R Interval 162 ms GEMUSE QRS Duration 120 ms GEMUSE Q-T Interval 338 ms GEMUSE QTc 469 ms GEMUSE P Wave [place] 36 degrees GEMUSE R [place] 61 degrees GEMUSE T [place] 61 degrees GEMUSE ECG Interpretation Sinus tachycardia Possible Left atrial enlargement Right bundle branch block Abnormal ECG When compared with ECG of 28-AUG-2024 19:38, Premature atrial complexes are no longer Present ST now depressed in Anterior leads Confirmed by FALGUNI REDDY ([id number]) on 09/04/2024 4:05:47 PM GEMUSE 09/04/2024 8:56 AM EST 09/04/2024 4:05 PM EST Osmany Oquendo MD ECG ORDERABLES Final Result Performing Organization Address City/[facility]/ZIP Co de Phone Number GEMUSE * OR CRITICAL CARE 30-74 MINUTES (09/04/2024 8:41 AM [...] Signed Date: 08/29/2024 00:16 ET Workstation ID: [id number] Transcribed By: Self Edit Transcribed Date: 08/29/2024 [...] Signed Date: 08/29/2024 00:16 ET Workstation ID: [id number] Transcribed By: Self Edit Transcribed Date: 08/29/2024 00:14 ET Asa Giles MD IMG XR PROCEDURES Final R esult * Magnesium (08/28/2024 6:18 PM EST) Only the most recent of2 resultswithin the time period is included. Magnesium 1.9 1.9 - 2.6 mg/dL LAB CHEMISTRY METHOD 08/28/2024 7:45 PM EST [facility] Blood Venous blood specimen / Unknown Venipuncture / Unknown 08/28/2024 6:18 PM EST 08/28/2024 7:04 PM EST Asa Giles MD LAB BLOOD ORDERABLES Lesa l Result [facility] [address] [place] [address], [place] [phone] * (ABNORMAL) Lipase (08/28/2024 6:18 PM EST) Only the most recent of2 resultswithin the time period is included. Lipase 111(H) 13 - 75 unit/L LAB CHEMISTRY METHOD 08/28/2024 7:45 PM [facility] Blood Venous blood specimen / Unknown Venipuncture / Unknown 08/28/2024 6:18 PM EST 08/28/2024 7:04 PM EST us Asa Giles MD LAB BLOOD ORDERABLES Lesa l Result [facility] [address] [place] [address], * (ABNORMAL) Comprehensive metabolic panel (08/28/2024 6:18 PM EST) Only the most recent of2 resultswithin the time period is included. Sodium 135 133 - 145 mmol/L LAB CHEMISTRY METHOD 08/28/2024 7:46 PM [facility] Potassium 3.8 3.5 - 5.5 mmol/L LAB CHEMISTRY METHOD 08/28/2024 7:46 PM [facility] Chloride 99 96 - 110 mmol/L LAB CHEMISTRY METHOD 08/28/2024 7:46 PM [facility] CO2 25 21 - 32 mmol/L LAB CHEMISTRY METHOD 08/28/2024 7:46 PM [facility] Anion Gap 11 3 - 11 LAB CHEMISTRY METHOD 08/28/2024 7:46 PM [facility] Glucose 182(H) 70 - 100 mg/dL LAB CHEMISTRY METHOD 08/28/2024 7:46 PM [facility] BUN 20 5 - 25 mg/dL LAB CHEMISTRY METHOD 08/28/2024 7:46 PM [facility] Creatinine 1.23(H) 0.50 - 1.10 mg/dL LAB CHEMISTRY METHOD 08/28/2024 7:46 PM [facility] eGFR 43(L) >=60 mL/min/1. 73m2 LAB CHEMISTRY METHOD 08/28/2024 7:46 PM [facility] Comment:Calculation based on the??Chronic Kidney Disease Epidemiology Collaboration (CKD-EPI) equation refit??without adjustment for race. BUN/Creatinine Ratio 16.3 LAB CHEMISTRY METHOD 08/28/2024 7:46 PM [facility] Calcium 9.2 8.5 - 10.5 mg/dL LAB CHEMISTRY METHOD 08/28/2024 7:46 PM [facility] AST (SGOT) 16 10 - 42 unit/L LAB CHEMISTRY METHOD 08/28/2024 7:46 PM [facility] ALT (SGPT) 24 10 - 60 unit/L LAB CHEMISTRY METHOD 08/28/2024 7:46 PM [facility] Alkaline Phosphatase 81 42 - 121 unit/L LAB CHEMISTRY METHOD 08/28/2024 7:46 PM [facility] Total Protein 7.4 6.0 - 8.0 g/dL LAB CHEMISTRY METHOD 08/28/2024 7:46 PM [facility] Albumin 3.8 3.2 - 5.0 g/dL LAB CHEMISTRY METHOD 08/28/2024 7:46 PM [facility] Total Bilirubin 0.4 0.0 - 1.4 mg/dL LAB CHEMISTRY METHOD 08/28/2024 7:46 PM [facility] Blood Venous blood specimen / Unknown Venipuncture / Unknown 08/28/2024 6:18 PM EST 08/28/2024 7:04 PM EST us Asa Giles MD LAB BLOOD ORDERABLES Lesa l Result [facility] [address] [place] [address], * DOMINIC SCREENING DIGITAL (07/01/2019 4:51 PM EST) Anatomical Region Laterality Modality Mammography 07/01/2019 12:3 0 PM EST Narrative 07/01/2019 4:51 PM EST [facility] Diagnostic Imaging Department [address] [place] [id number] Patient: ??KRISTIN VALDIVIA ?/Age/Sex: 1940 - Unit#: ??[id number] ? Location/Status: ??SPDIMAM/REG CLI ? Mnemonic/Ordering Site: ??DIGSC/SPMAM Ordering Physician: ??GRISELDA VELAZQUEZ MD Dominic Screening Digital - 07/01/19 - 1317 INDICATION: SCREENING COMPARISON: No prior studies are available for comparison. TECHNIQUE: CC and MLO views of the breasts were obtained, using full field digital mammography with 3D tomosynthesis views in the MLO projection. Computer aided detection with the Meditech 7.2-H was employed. Patient reports 2 sisters [...] date for the next mammogram. ([id number] / [id number]) , ??[id number] Dictating Physician: ??BRODY SMITH MD Electronically Signed by: ??BRODY SMITH MD Dic Date/Time: ??07/01/191645 Sign date/Time: ??07/01/19 165 Procedure Note Bordy Smith - 07/13/2022 [facility] Diagnostic Imaging Department [address] [place], [place] [id number] Patient: MERI MCGREGORKRISTIN /Age/Sex: 1940 - 78 - F Unit#: [id number] Location/Status: [facility] Mnemonic/Ordering Site: [facility] Ordering Physician: GRISELDA VELAZQUEZ MD Dominic Screening Digital - 07/01/19 - 1316 INDICATION: SCREENING COMPARISON: No prior studies are available for comparison. TECHNIQUE: CC and MLO views of the breasts were obtained, using full field digital mammography with 3D tomosynthesis views in the MLO projection. Computer aided detection with the Meditech 7.2-H was employed. Patient reports 2 sisters [...] a target date for the next mammogram. [id number] / [id number]) , [id number] Dictating Physician: BRODY SMITH MD Electronically Signed by: BRODY SMITH MD Dic Date/Time: 07/01/19 1646 Sign date/Time: 07/01/19 1651 Griselda Velazquez MD IMG BI PROCEDURES Final Result * Urine Albumin Creatinine Ratio (06/05/2019) Urine Albumin [...] Documents on File Type Date Recorded Patient Explosive Expert Expl anation Health Care Decision (hx) 03/17/2017 [...] Communication Liz Starr Daughter Health Care Agent Care Teams Microbiology Lab Analyst Relationship Specialty Start Date End Date Best Diaz MD [address] [place] [address] [address] [facility] [place] [address] PCP - General 07/13/23
[2024-11-01 20:58] LABS: N-Telopeptide 12 (see note); NTXCreaRU 71 mg/dL (20-275)
== END 2024-10-26 08:52 | disposition home or self-care (01) ==
LOC: HO.LAB 08:51
PROVIDERS: PCP Internal Medicine; Visit Provider Internal Medicine Endocrinology, Diabetes & Metabolism
DX: M81.0 Age-related osteoporosis without current pathological fracture (principal)
CPT/HCPCS: 82523

== ENCOUNTER 2024-11-04 10:13 | Outpatient (AMB) | payer MEDICARE, OTHER, MEDICAID, SELFPAY ==
--- NOTE | 2024-11-04 10:20 | A.OFFVIS_ITS ---
Vital Signs 11/04/24 10:22 Height 5 ft 2.8 in Weight 133 lb 6.075 oz BMI 23.8 BP 140/58 H Blood Pressure Location Rt brachial Position Sitting Pulse 100 Pulse Source Pulse Oximeter Pulse Oximetry (%) 98 Oxygen Delivery Method Room Air Intake Visit Reasons: osteoporosis Intake Note: Patient present today for Osteoporosis follow up. Assistant Professor Of Religion Required: No Accompanied by: Grandchild Allergies amlodipine Adverse Reaction (Intermediate, Verified 11/04/24 10:25) leg edema empagliflozin [From Jardiance] Adverse Reaction (Verified 11/04/24 10:25) vaginal candidiasis Medication List - Last Reconciled 11/04/24 by Jayro Devine MD [adult diapers As directed] albuterol sulfate 90 mcg/actuation 2 puffs inhalation Q4-6H PRN 30 days alendronate 70 mg PO QWEEK apixaban (Eliquis) 5 mg PO BID 90 days blood sugar diagnostic TEST 3 TIMES DAILY blood-glucose meter ([employer] Ultra2 Meter) As directed- TID cane As directed cholecalciferol (vitamin D3) 25 mcg PO DAILY 90 days commode (bedside commode) As directed dulaglutide (Trulicity) 1.5 mg (0.5 mL) subcut QWEEK 90 days fluconazole 150 mg PO Q3D 2 doses fluticasone propion-salmeterol 100-50 mcg/dose (Wixela Inhub) 1 inh inhalation BID gabapentin 200 mg (2 x 100 mg) PO BEDTIME 90 days isosorbide mononitrate ER 30 mg PO DAILY 90 days levalbuterol tartrate 45 mcg/actuation (Xopenex HFA) 2 puffs inhalation Q4-6H PRN losartan 25 mg PO DAILY 90 days magnesium oxide 400 mg PO DAILY 90 days metformin 1,000 mg PO BID 90 days metoprolol succinate ER 100 mg PO DAILY 90 days omeprazole 20 mg PO DAILY 90 days [One touch Ultra Blue test strips Use 3 times a day] pioglitazone 30 mg PO DAILY 90 days prednisone 10 mg PO DIRECTED 8 days rosuvastatin 10 mg PO DAILY 90 days tizanidine 2 mg PO Q8H PRN 30 days underpads (Certainty Underpads) Use 1 to 2 times a day walker with brakes and seat HPI Comments Details: 84 YO Female with PMHx Osteoporosis, DM2, CKD Stage 3, AFib on chronic AC with eliquis who is seen in F/U for Osteoporosis. First diagnosed in 2021 with her first DXA. She began treatment for her Osteoporosis with Prolia with her first injection 04/04/2022. After her initial visit we completed a biochemical assessment for secondary causes of Osteoporosis, which did reveal an abnormal SPEP. She was referred to Heme-Onc and underwent additional testing, and per Heme-Onc no evidence of multiple myeloma or MGUS. No history of pathologic fracture or ONJ. Has 0-1 servings of dietary calcium per day in the form of milk and cheese. Takes Calcium citrate 600 mg PO BID. She takes Vitamin D 1000 IU daily. Uses PPI daily and also anticoagulant eliquis since June 2021. Denies ever using antiepileptic or glucocorticoid medication. Does no scheduled exercise. Fracture history: Fractured her R shoulder in 2011 in [place], this was traumatic. Height loss: Has lost 1 inch in height [employer] history: Menarche was age 15. Menses was regular. . Breastfed for 9-12 months in total. Menopause was age 49. She did not use HRT. Denies a history of Kidney stones. Denies a family history of Osteoporosis or hip fracture. UTD on dental cleanings and sees dentist every 6 months. No planned upcoming dental work or extractions. DXA: 09/01/2021 FINDINGS: AP SPINE L1-L4: BMD 0.934 g/cm2, Z-score -0.1, T-score -2.0, osteopenia. LEFT FEMUR, NECK: BMD 0.694 g/cm2, Z-score -0.2, T-score -2.5, osteoporosis. LEFT FEMUR, TOTAL: BMD 0.858 g/cm2, Z-score 1.0, T-score -1.2, osteopenia. Labs: Laboratory Tests 10/03/22 10/03/22 10/03/22 15:43 15:45 15:45 Creatinine 1.15 Estimated GFR 45 N-Telopeptide X-linked 19 25-OH Vitamin D Total 33.3 PTH Intact 44 Calcium (PTH Intact) 10.1 Was on Prolia since 04/14 Transitioned to alendronate in 03/2024 . No fx back or hip [facility] History Left shoulder pain Hyperlipidemia LDL goal <100 Abnormal SPEP Vitamin D deficiency Osteoporosis Age related osteoporosis Physical exam Hypomagnesemia Atrial fibrillation with rapid ventricular response Urinary incontinence Abnormal EKG Screening for osteoporosis Neuropathy Microalbuminuria JONNY (obstructive sleep apnea) Left shoulder pain Anemia GERD (gastroesophageal reflux disease) Coronary artery disease Hypertension Type 2 diabetes mellitus with hyperglycemia Surgical History History of surgery on arm Hx of dilation and curettage Hx of breast biopsy Family History Mother Diabetes mellitus Father No problems noted. Sister Lymphoma Breast cancer Brother Colon cancer Social History Household Members: Family Housing: House Are you a primary child care associate to a significant other at home: No Do you presently have visiting nurse or other home services: Yes (insurance nurse) Alcohol intake: never Patient Tobacco Use Status: Never used Tobacco e-Cigarette/Vaping Use: Never Used Second Hand Smoke Exposure: No service: No Current occupational status: disabled Cognitive needs: No Hearing needs: No Vision needs: Yes Physical Exam Vital Signs: Last Vital Signs Pulse 100 11/04/24 10:22 BP 140/58 H 11/04/24 10:22 Pulse Ox 98 11/04/24 10:22 Oxygen Delivery Method Room Air 11/04/24 10:22 BMI result Body Mass Index 23.8 Assessment & Plan Assessment & Plan (1) Osteoporosis: Code(s): M81.0 - Age-related osteoporosis without current pathological fracture Category: Medical Plan: This 83-year-old female with a history of osteoporosis and negative secondary workup currently being treated with Prolia since 04/04/2022. last Prolia injection 03/2024. Urine NTX is suppressed Plan to continue alendronate 70 mg Q weekly for full year until 03/2025 . Consider substituting another agent for pioglitazone as this may have a negative effect on bone density Orders: Orders Collagen Crosslinks NTX 4 Months M81.0 - Age-related osteoporosis without current pathological fracture Coding Level of Care Code Est Pt Level 3 (08223) Diagnoses Osteoporosis M81.0
[2024-11-04 10:22] VITALS: BP 140/58; PULSE 100; O2SAT 98; BMI 23.8
--- OUTSIDE RECORDS SUMMARY | 2024-11-04 11:38 | XMS_ITS | Clinical Summary ---
Author Organization [facility]. Address [address] [address] Phone Care Team Providers Care Bottle Blowing Machine Tender Name Role Phone Pam Wills MD Primary Care Provider [phone] Allergies No known active allergies Medications amLODIPine [...] Office Visit [facility] [address] [place] [address] Jaylon Barreto MD Stage 3a chronic kidney [...] Office Visit [facility] [address] [facility] [address] [place] [address] Jaylon Barreto MD [address] [phone] Health Maintenance Due Date Last Done Comments Diabetes: Ophthalmology Exam 05/11/2021 Diabetes: Pedal Pulse Checked 05/11/2021 Diabetes: Sensory Foot Exam 05/11/2021 Diabetes: Visual Foot Exam 05/11/2021 Diabetes: Hemoglobin A1C 12/02/2024 025, 06/05/2019, 11/13/2015 Influenza Vaccine (Season Ended) 2025 05/29/2015 Pneumococcal Vaccine: 50+ Years Completed 05/03/2017, 05/01/2015 Hepatitis B Vaccine [...] Most Recently Relevant to Health Maintenance Insurance [facility] Medicare [facility] Medicare Care Teams Bottle Blowing Machine Tender Relationship Specialty Start Date End Date Pam Wills MD [address] [place] [address] PCP - General Internal Medicine 05/11/21
--- OUTSIDE RECORDS SUMMARY | 2024-11-04 11:38 | XMS_ITS | Encounter Summary ---
Author Organization [facility] Address [address] [facility] [address] [place] [address] Phone Care Team Providers Care Md Urologist Name Role Phone Pam Wills MD Primary Care Provider [phone] Encounter Details Date Type Department Care Team (Late Contact Info) Description 08/03/2021 Documentation Only [facility] [address] [facility] [address] [place] [phone] Jaylon Barreto MD [address] [phone] Social History Tobacco Use Types [...] Visit [facility] [address] [phone] Jaylon Barreto MD [address] [phone] documented as of this encounter Visit Diagnoses Not on filedocumented in this encounter Care Teams Md Urologist Relationship Specialty Start Date End Date Pam Wills MD [address] [place], [place] PCP - General Internal Medicine 05/11/21 documented as of this encounter
--- OUTSIDE RECORDS SUMMARY | 2024-11-04 11:38 | XMS_ITS | Encounter Summary ---
Author Organization [employer] Address [address] [place] [address] Care Team Providers Care Heavy Equipment Rental Manager Name Role Phone Pam Montoya MD Primary Care Provider [phone] Reason for Referral * Cardiac Stress Testing (Routine) - Pending Review Specialty Diagnoses / Procedures Referred By Obi schwartz Referred To Contact Cardiology Diagnoses Chest pain at rest Procedures Nuclear stress test with myocardial perfusion KS MYOCARDIAL PERFUSION IMAGING TOMOGRAPHIC MULTI STUDIES AT REST OR STRESS KS MYOCARDIAL PERFUSION IMAGING TOMOGRAPHIC SINGLE STUDY AT REST OR STRESS KS CARDIOVASCULAR STRESS TEST GLOBAL KS CV TMST/BIKE MAX/SUBMAX CONTINUOUS ECG MON/PHARM STRESS SUPVSR ONLY KS CV STRESS TEST/BIKE CONT ECG MON/PHARM STRESS INTERP & REPORT ONLY KS TEST STRESS CARDIOVASCULAR TRACING ONLY Vineet Mcclellan MD [address] [place] [phone] Phone: tel: fax: [facility] Referral ID Status Reason Start Date Expiration Date V isits Requested Visits Authorized [id number] Pending Review 10/31/2024 10/31/2025 3 3 Reason for Visit * Reason Comments Dizziness Hypertension * Auth/Cert (Routine) Specialty Diagnoses / Procedures Referred By Obi t Referred To Contact Diagnoses Chest pain Procedures . Sondhi, Rodger, MD [address] [place] [address] Phone: tel: fax: [facility] [address] [place] [address] Phone: tel: Referral ID Status Reason Start Date Expiration Date Visits Re quested Visits Authorized [id number] 1 1 Encounter Details Date Type Department Care Team (Latest Contact Info) Description 10/30/2024 5:00 PM EDT - 10/31/2024 11:43 AM EDT Hospital Encounter [facility] [address] [place] [address] Mark Woodard MD [address] [place], [place] [phone] Rodger De La O MD [address] [place] [address] Eliseo Lacy MD [address] [place] [address] [phone] Vineet Mcclellan MD [address] [place] [phone] Chest pain at rest (Primary Dx) Discharge Disposition: Home-Health Care Svc Social History Tobacco Use Types Packs/Day Years [...] Sign Reading Time Taken Comments Blood Pressure 124/54 10/31/2024 9:09 AM EDT Pulse 71 10/31/2024 9:09 AM EDT Temperature 36.7 ??C (98 ??F) 10/31/2024 9:09 AM EDT Respiratory Rate 18 10/31/2024 9:09 AM EDT Oxygen Saturation 99% 10/31/2024 9:09 AM EDT Inhaled Oxygen Concentration - - Weight 61.2 kg (135 lb) 10/30/2024 3:01 PM EDT Height 160 cm (5' 3 ) 10/30/2024 3:01 PM EDT Body Mass Index 23.91 10/30/2024 3:01 PM EDT documented in this encounter Functional Status * Are you deaf or do you have serious difficulty hearing? Answer Date of Assessment Author No 10/30/2024 9:22 PM EDT Alyx Suarez RN * Are you blind or do you have serious difficulty seeing, even when wearing glasses? Answer Date of Assessment Author No 10/30/2024 9:22 PM EDT Alyx Suarez RN * Do you have serious difficulty walking or climbing stairs? Answer Date of Assessment Author No 10/30/2024 9:22 PM EDT Alyx Suarez RN * Do you have serious difficulty dressing or bathing? Answer Date of Assessment Author No 10/30/2024 9:22 PM EDT Alyx Suarez RN * Because of a physical, mental, or emotional condition, do you have serious difficulty doing errandsalone such as visiting the doctor? Answer Date of Assessment Author No 10/30/2024 9:22 PM EDT Alyx Suarez RN documented as of this encounter Mental Status * Because of a physical, mental, or emotional condition, do you have serious difficulty concentrating, remembering, or making decisions? (5 years old or older) Answer Entry Date Author No 10/30/2024 9:22 PM EDT Alyx Suarez RN documented in this encounter Discharge Summaries * Vineet Mcclellan MD - 10/31/2024 11:43 AM EDT Images from the original note were not included. DURAND DISCHARGE SUMMARY Patient Information Kristin Villagomez : 1940 [84 y.o.] Admitting Provider Rodger De La O MD Discharge Provider Ochoa Hall MD, No att. providers found Primary Care Physician Pam Montoya MD Admission Date 10/30/2024 Discharge Date 10/31/2024 Summary of Hospital Problems Primary Discharge Diagnosis: Chest pain Uncontrolled hypertension Secondary Discharge Diagnosis: Diabetes mellitus Paroxysmal atrial fibrillation with secondary hypercoagulable state Question of CAD Type 2 diabetes mellitus Asthma Anxiety and depression Osteoarthritis Discharge Destination: Home, health services Code Status at Discharge: Full code Hospital Course Summary As taken from the history and physical: This is an 84-year-old Kazakh-speaking only female with a past medical history significant for hypertension, paroxysmal atrial fibrillation currently anticoagulated on Eliquis, hyperlipidemia, type2 diabetes mellitus, CAD, anxiety and depression, asthma who presents to the emergency department today from adult daycare for an evaluation of chest pain. Patient was at adult daycare where she goes for socialization during the day while her daughter works and reports that she noted that her blood pressure was elevated all day. She reports that the nurse at the daycare facility gave her her blood pressure medication however her blood pressure continued to be elevated and then she felt nervous followed by dizziness, palpitations and chest pressure. At time of my evaluation, patient's blood pressure has improved, she has noted to have Nitropaste onher chest and she is currently denying dizziness, palpitations or chest pressure at this time. Chest x-ray: Slight increase in left lower lobe density however overall no acute cardiopulmonary findings or changes from prior, per my read, official read pending. ECG NSR Initial laboratory results: CMP reveals random glucose 160, BUN/creatinine 26/0.99, calculated GFR 56, magnesium 1.7, lipase 88, BNP 60, troponins 4 with a repeat of 6. In the emergency department the above was performed and patient received 2024 mg p.o. aspirin and half inch Nitro-Bid was placed. The decision was made to admit patient for medical management. The patient was then admitted to medicine for further evaluation and treatment. The following issues were addressed: Patient is an elderly female with past medical history as above who presented to the hospital from her daycare program secondary to a sensation of fever, palpitations, dizziness, ascending pressure from the belly up to the chest. She has a history of regular episode which she feels panic anxiety, but this time, she also presented some chest tightness and palpitations. [facility] pressure was elevated therefore her daughter was contacted and she picked her up to bring her to the hospital, [facility] was [facility] elevated. Initial workup was unrevealing, she was given aspirin and Nitropaste and admitted to medicine for further evaluation and treatment. Her troponin was normal x 3 within this morning, her EKG shows chronic right bundle branch block without acute ischemic changes, chest x-ray shows clear lungs, CRP was normal, magnesium was slightly low complexity medical decision making.. Glucose was at goal. The patient was restarted on her chronic medications and her blood pressure normalized. Today the patient is feeling back to baseline, she has ambulated to the bathroom without recurrence of the pain, her telemetry shows sinus rhythm without ectopy. There is noevidence of acute coronary syndrome, she has a history of paroxysmal atrial fibrillation, it is possible that she had an episode of A-fib with cannot corroborate as her EKG was in sinus when she arrived, she is on chronic beta-cem for rate control. She claims a history of angina since age 17 and has been on nitrates ever since, according to her daughter, has never had a formal ischemia evaluation although she follows with a tanning wheel operator at [place]. Given her stability, she is deemed to be stable for discharge and will request an outpatient stress test with nuclear imaging, I will increaseher Imdur to 60 mg daily given that adding nitroglycerin provided good control of the blood pressure. No other acute issues were observed, patient will follow with PCP within a week and she was provided with information to contact the cardiology office to confirm her stress test appointment. Providers consulted: None Procedures done: XR Chest 2 Views Final Result FINDINGS/IMPRESSION: Lungs are clear. No pleural effusion or pneumothorax. Cardiac silhouette is normal in size. Degenerative changes seen throughout the bones. -------- FINAL REPORT -------- Dictated By: JUSTIN MONCADA Dictated Date: 10/31/2024 11:27 ET Assigned Physician: JUSTIN MONCADA Reviewed and Electronically Signed By: JUSTIN MONCADA Signed Date: 10/31/2024 11:27 ET Workstation ID: [id number] Transcribed By: Self Edit Transcribed Date: 10/31/2024 11:27 ET Nuclear stress test with myocardial perfusion (Results Pending) Condition upon discharge Patient is an elderly female, not in acute distress, somewhat anxious, currently denies any pain orshortness of breath, no nausea vomiting, appetite is good, no urinary symptoms, no peripheral edema, no palpitations, no dizziness or lightheadedness, no recent syncope. Visit Vitals BP 124/54 (BP Location: Left arm, Patient Position: Lying) Pulse 71 Temp 36.7 ??C (98 ??F) (Oral) Resp 18 Temp (24hrs), Av.7 ??C (98 ??F), Min:36.4 ??C (97.5 ??F), Max:36.8 ??C (98.3 ??F) Elderly female, interviewed , not in acute distress, normocephalic, atraumatic, moist oral mucosa, some temporal muscle wasting, no visible JVD, no bruit, lungs with scattered rhonchi, chronic fine crackles from her history of PAKO infection for which she has declined treatment, no increased work of breathing, heart regular with no murmurs, abdomen soft and nontender, extremities without clubbing, cyanosis or edema, no open wounds were observed. She is alert orient x 3, speech is clear, face symmetric, grossly nonfocal. . Body mass index is 23.91 kg/m??. No results found for: PTWT , PTHT 45 Minutes were spent in patient care including [id number] time, chart review, discussion with providers, documentation, order builder. Moderate complexity medical decision making. This note was written using Fresh[employer] speech recognition software which is prone to typographical errors. If questions occur please do not hesitate to call this provider. Follow-Up Instructions and Recommendations Primary care provider (PCP) Pam Montoya MD [address] [place] [address] , [address] [facility]A: [facility] [phone] Discharge Procedure Orders Discharge Diet: Return to previous diet Order Specific Question Answer Comments General Instructions for your diet at home Return to previous diet Restrict your activities and rest today, may resume normal activity tomorrow Primary care provider (PCP) Order Specific Question Answer Comments Follow-Up Within: 7 Nuclear stress test with myocardial perfusion Standing Status: Future Standing Exp. Date: 10/31/25 Scheduling Instructions: PREFERRED SCHEDULE LOCATION: Order Specific Question Answer Comments What stress agent should be used? Regadenoson (Lexiscan) Is this test being performed specifically to assess myocardial viability WITH THALLIUM? No In what REGION should this be scheduled? [facility] [[id number]] There are no outpatient Patient Instructions on file for this admission. Discharge Medications Your medication list CHANGE how you take these medications Instructions Last Dose Given Next Dose Due isosorbide mononitrate 60 mg 24 hr tablet Commonly known as: IMDUR What changed: medication strength how much to take additional instructions Take 1 tablet (60 mg total) by mouth 1 (one) time each day. Do not crush or chew. CONTINUE taking these medications Instructions Last Dose Given Next Dose Due albuterol HFA 90 mcg/actuation inhaler Commonly known as: PROAIR HFA ; PROVENTIL HFA ; VENTOLIN HFA Inhale 2 puffs by mouth every 6 (six) hours if needed for wheezing. alendronate 70 mg tablet Commonly known as: FOSAMAX Take 1 tablet (70 mg total) by mouth every 7 (seven) days. apixaban 5 mg tablet Commonly known as: ELIQUIS Take 1 tablet (5 mg total) by mouth 2 (two) times a day. cholecalciferol 25 mcg (1,000 unit) capsule Commonly known as: VITAMIN D-3 Take 1 capsule (1,000 Units total) by mouth 1 (one) time each day. fluticasone-salmeterol 250-50 mcg/dose diskus inhaler Commonly known as: ADVAIR DISKUS Inhale 1 puff by mouth 2 (two) times a day. gabapentin 100 mg capsule Commonly known as: NEURONTIN Take 1 capsule (100 mg total) by mouth at bedtime. losartan 25 mg tablet Commonly known as: COZAAR Take 1 tablet (25 mg total) by mouth 1 (one) time each day. magnesium oxide 400 mg magnesium tablet Commonly known as: MAG-OX Take 1 tablet (400 mg total) by mouth 1 (one) time each day. metFORMIN 1,000 mg tablet Commonly known as: GLUCOPHAGE Take 1 tablet (1,000 mg total) by mouth 2 (two) times a day with meals. metoprolol succinate 100 mg 24 hr tablet Commonly known as: TOPROL-XL Take 1 tablet (100 mg total) by mouth 1 (one) time each day. Do not crush or chew. omeprazole [address] capsule Commonly known as: PriLOSEC Take 1 capsule (20 mg total) by mouth 1 (one) time each day. pioglitazone 30 mg tablet Commonly known as: ACTOS Take 1 tablet (30 mg total) by mouth 1 (one) time each day. rosuvastatin 10 mg tablet Commonly known as: CRESTOR Take 1 tablet (10 mg total) by mouth 1 (one) time each day. tiZANidine 2 mg tablet Commonly known as: ZANAFLEX Take 1 tablet (2 mg total) by mouth every 8 (eight) hours if needed for muscle spasms. Trulicity 1.5 mg/0.5 mL pen injector injection Generic drug: dulaglutide Inject 0.5 mL (1.5 mg total) under the skin 1 (one) time per week. MONDAY Where to Get Your Medications These medications were sent to [id number] AT [address] [address] Hours: 24-hours isosorbide mononitrate 60 mg 24 hr tablet documented in this encounter Discharge Instructions * Discharge Instructions* Vineet Mcclellan MD - 10/31/2024 11:02 AM EDT Follow-up with PCP within a week for recheck Read carefully handout provided Please note the increase of the dose of isosorbide. You will be contacted by the cardiology office of [facility] with an appointment tiarra outpatient stress test, please call [phone] in 1 week if you have not been contacted with an appointment by then. * Attachments The following attachments cannot be sent through Care Everywhere. * Chest Pain (Greenlandic) documented in this encounter Medications at Time of Discharge albuterol HFA (PROAIR HFA ; PROVENTIL HFA ; VENTOLIN HFA) 90 mcg/actuation inhaler Inhale 2 puffs by mouth every 6 (six) hours if needed for wheezing. 6.7 g 3 10/22/2024 10/22/2025 alendronate (FOSAMAX) 70 mg tablet Take 1 tablet (70 mg total) by mouth every 7 (seven) days. 08/22/2024 apixaban (ELIQUIS) 5 mg tablet Take 1 tablet (5 mg total) by mouth 2 (two) times a day. cholecalciferol (VITAMIN D-3) 25 mcg (1,000 unit) capsule Take 1 capsule (1,000 Units total) by mouth 1 (one) time each day. 01/11/2022 dulaglutide (Trulicity) 1.5 mg/0.5 mL pen injector injection Inject 0.5 mL (1.5 mg total) under the skin 1 (one) time per week. Monday12/09/2020 fluticasone-salme terol (ADVAIR DISKUS) 250-50 mcg/dose diskus inhaler Inhale 1 puff by mouth 2 (two) times a day. 1 each 10/22/2024 10/22/2025 gabapentin (NEURONTIN) 100 mg capsule Take 1 capsule (100 mg total) by mouth at bedtime. 11/12/2019 isosorbide mononitrate (IMDUR) 60 mg 24 hr tablet Take 1 tablet (60 mg total) by mouth 1 (one) time each day. Do not crush or chew. 30 each 10/31/2024 10/31/2025 losartan (COZAAR) 25 mg tablet Take 1 tablet (25 mg total) by mouth 1 (one) time each day. 10/16/2024 magnesium oxide (MAG-OX) 400 mg magnesium tablet Take 1 tablet (400 mg total) by mouth 1 (one) time each day. metFORMIN (GLUCOPHAGE) 1,000 mg tablet Take 1 tablet (1,000 mg total) by mouth 2 (two) times a day with meals. 11/12/2019 metoprolol succinate (TOPROL-XL) 100 mg 24 hr tabletIndications :hypertension Take 1 tablet (100 mg total) by mouth 1 (one) time each day. Do not crush or chew. omeprazole (PriLOSEC) [address] capsule Take 1 capsule (20 mg total) by mouth 1 (one) time each day. 05/05/2020 pioglitazone (ACTOS) 30 mg tablet Take 1 tablet (30 mg total) by mouth 1 (one) time each day. 10/16/2024 rosuvastatin (CRESTOR) 10 mg tablet Take 1 tablet (10 mg total) by mouth 1 (one) time each day. 08/11/2024 tiZANidine (ZANAFLEX) 2 mg tablet Take 1 tablet (2 mg total) by mouth every 8 (eight) hours if needed for muscle spasms. documented as of this encounter Ordered Prescriptions Prescription Sig Dispense Quantity Refills Last Filled Start Date End Date isosorbide mononitrate (IMDUR) 60 mg 24 hr tablet Take 1 tablet (60 mg total) by mouth 1 (one) time each day. Do not crush or chew. 30 each 10/31/2024 10/31/2025 documented in this encounter Discharge Disposition Disposition Code Departure Means Destination Comment s Home-Health Care Svc documented in this encounter Progress Notes * Sona Hills RN - 10/31/2024 12:05 PM EDT 10/31/24 1150 Initial Transition Plan Initial [facility] Other[facility]Comment[facility] Back up Transition Plan Back up Transition plan Other(Comment) ([facility]) Discharge Planning Contact (Name, Phone #, Relationship) for DC Planning Liz Starr [phone] Living Arrangements Family members Type of Residence Private residence Assistive Devices Walker;Cane Support Systems Children;Immediate family (grandchildren) Medication Coverage Has Med Coverage Under Insurance Plan Yes Anticipated Discharge Needs Home Health RN Discipline following for SNF placement Irrigation System Operator Informed Choice Informed Choice Given? Yes Transportation Final Discharge Disposition Other (Comment) (Home with [facility]) Patient lives at home with daughter in two level home and first floor set up. She is active with [facility] program and agency is aware of hospitalization. Discharge home with family. Dr. Hall updated.. * Alyx Suarez RN - 10/31/2024 2:00 AM EDT ED RN HANDOFF (All Sosa Below Must Be Completed) Reason/Diagnosis for Admission:observation for angina/chest pressure Type of Admission: [] Medsurg, [x] Telemetry Already in a Hospital Bed: [x] Yes / [] No Room Considerations/Precautions (ex: fever, diarrhea, or any infectious concerns): [] Yes / [x] No Shape Hand: [x] Yes / [] No If YES, Cardiac Rhythm: [x] NSR, [] SB, [] ST, [] A-FIB, [] A-Flutter, [] Pacemaker, [] 1st Degree HB, [] 2nd Degree HB, [] 3rd Degree HB Reason for Shape Hand:chest pain VS: Visit Vitals BP 135/64 (BP Location: Right arm, Patient Position: Lying) Pulse 75 Temp 36.7 ??C (98 ??F) (Oral) Resp 17 Ht 1.6 m (63 ) Wt 61.2 kg (135 lb) SpO2 96% BMI 23.91 kg/m?? Smoking Status Never BSA 1.64 m?? Current Mental Status: A/O x [x]4, []3, []2, []1 Current Ambulation Status:ambulatory with standby assist IV Access: [x] Yes / [] No Field IV present: [x] Yes / [] No Hx of Violence: [] Yes / [] No / [x] Unknown Fall Risk:[] Yes / [x] No Yellow Bracelet Applied [] Yes / [x] No Yellow Socks Applied [] Yes / [x] No Patient Belongings inventoried and BL completed: [x] Yes / [] No Patient belongings stored in the security closet: [] Yes (If Yes please supply Security bag #): [x] No Patient Medications stored in Pharmacy: [] Yes (If Yes please supply Medication Security bag #): [x] No ED Summary of Care: History of angina-[facility] when patient felt dizzy and reported chest pressure. Cxr negative,labs/troponins negative x 2. Nitro paste on and pt pain free. Daughter at bedside and very helpful. Pt speaks bulgarian Submitted by and Phone Extension:[phone] * Alyx Suarez RN - 10/30/2024 10:56 PM EDT Patient in hospital bed * Jemal Taylor RN - 10/30/2024 3:04 PM EDT Pt was at adult daycare today and started to feel anxious and dizzy. Her daughter was called and she was brought to ED. Continues with mild dizziness and is a little unsteady on her feet. Initially denied having and chest pain but then started to talk about some chest pressure she was having which made her anxious in the first place. Denies SOB, denies N/V. * Mark Woodard MD - 10/30/2024 2:51 PM EDT This is a split/shared visit with RADHA Romero. I personally performed the medical decision making (MDM) for the care of this patient on 10/30/2024 as documented below 84-year-old female presents for chest pain and hypertension. Hypertensive to the most 190 systolic.Troponins 4 and 6, EKG nonischemic. Pain improved with nitro, possible angina NSTEMI, admitted. Mark Woodard MD 10/30/24 8:56 PM EDT Emergency Medicine Note Patient Name: Kristin Villgaomez Initial Evaluation: 10/30/2024 : 1940 Patient's PCP: Pam Montoya MD Emergency Physician: Mark Woodard MD History of Present Illness Chief Complaint: Chief Complaint Patient presents with Dizziness Hypertension HPI: PT is a 84 yo F here today for chief complaint of chest pressure. Patient reports she has a history of coronary artery disease diabetes hypertension. Hyperlipidemia. She was in a adult day program which she goes there for social support. States that she been developed a chest pressure. Her blood pressure was elevated in 180s it has been high all day. She does report she has a longstanding history of angina. Her symptoms feel similar. However this 1 is not going away. Non-smoker. ROS: I have performed a ROS with the pertinent positives and negatives documented in the history ofpresent illness. Previous History Past Medical History: Diagnosis Date Adrenal adenoma 10/21/2016 DX:Adrenal adenoma Allergic rhinitis 04/25/2017 DX:Allergic rhinitis Anxiety 10/09/2015 DX:Anxiety Arthritis 05/01/2015 DX:Arthritis Asthma 04/25/2017 DX:Asthma CAD (coronary artery disease) 05/01/2015 DX:CAD (coronary artery disease) Diabetes mellitus type 2 with neurological manifestations (CMS/HCC) 05/03/2017 DX:Diabetes mellitus type 2 with neurological manifestations (HCC) Hyperlipidemia 05/03/2017 DX:Hyperlipidemia Hypertension 05/03/2017 DX:Hypertension Insomnia 10/09/2015 DX:Insomnia Mass of colon 08/22/2016 DX:Mass of colon Past Surgical History: Procedure Laterality Date BREAST LUMPECTOMY PROCEDURE: HISTORICAL BREAST LUMPECTOMY SHOULDER SURGERY PROCEDURE: HISTORICAL SHOULDER SURGERY Social History Tobacco Use Smoking status: Never Smokeless tobacco: Never Substance Use Topics Alcohol use: No Drug use: No No family history on file. has No Known Allergies. No current facility-administered medications on file prior to encounter. Current Outpatient Medications on File Prior to Encounter Medication Sig Dispense Refill losartan (COZAAR) 25 mg tablet Take 1 tablet (25 mg total) by mouth 1 (one) time each day. pioglitazone (ACTOS) 30 mg tablet Take 1 tablet (30 mg total) by mouth 1 (one) time each day. albuterol HFA (PROAIR HFA ; PROVENTIL HFA ; VENTOLIN HFA) 90 mcg/actuation inhaler Inhale 1-2 puffsby mouth every 6 (six) hours if needed for wheezing or shortness of breath (Cough). albuterol HFA (PROAIR HFA ; PROVENTIL HFA ; VENTOLIN HFA) 90 mcg/actuation inhaler Inhale 2 puffs by mouth every 6 (six) hours if needed for wheezing. 6.7 g 3 alendronate (FOSAMAX) 70 mg tablet Take 1 tablet (70 mg total) by mouth every 7 (seven) days. amLODIPine (NORVASC) 5 mg tablet Take 1 tablet (5 mg total) by mouth 1 (one) time each day. apixaban (ELIQUIS) 5 mg tablet Take 1 tablet (5 mg total) by mouth 2 (two) times a day. azelastine-fluticasone 137-50 mcg/spray spray,non-aerosol Administer 1 spray into affected nostril(s) 2 (two) times a day. (Patient not taking: Reported on 10/22/2024) budesonide (PULMICORT) 0.25 mg/2 mL nebulizer solution Inhale 2 mL (0.25 mg total) by mouth 1 (one)time each day. (Patient not taking: Reported on 10/22/2024) calcium carbonate-vit D3-min 600 mg calcium- 400 [...] 2 (two) times a day. 1 each gabapentin (NEURONTIN) 100 mg capsule Take 1 capsule (100 mg total) by mouth at bedtime. hydrOXYzine HCL (ATARAX) 25 mg tablet Take 1 tablet (25 mg total) by mouth 3 times daily as needed.(Patient not taking: Reported on 10/22/2024) ipratropium (ATROVENT) 0.02 % nebulizer solution Take 2.5 mL (0.5 mg total) by nebulization 4 (four) times a day. (Patient not taking: Reported on 10/22/2024) 75 mL 0 isosorbide mononitrate (IMDUR) 30 mg 24 hr [...] each day. Do not crush or chew. montelukast (SINGULAIR) 10 mg tablet Take 1 tablet (10 mg total) by mouth at bedtime. (Patient not taking: Reported on 10/22/2024) omeprazole (PriLOSEC) [address] capsule Take 1 capsule (20 mg total) by mouth 1 (one) time each day. rosuvastatin (CRESTOR) 10 mg tablet Take 1 tablet (10 mg total) by mouth 1 (one) time each day. tiZANidine (ZANAFLEX) 2 mg tablet Take 1 tablet (2 mg total) by mouth every 8 (eight) hours if needed for muscle spasms. Physical Exam ED Triage Vitals Temp Heart Rate Resp BP 10/30/24 1501 10/30/24 1501 10/30/24 1501 10/30/24 1501 36.8 ??C (98.3 ??F) 94 18 (!) 188/73 SpO2 Temp Source Heart Rate Source Patient Position 10/30/24 1501 10/30/24 1501 10/30/24 1501 10/30/24 1706 97 % Oral Monitor Lying BP Location FiO2 (%) 10/30/24 1706 -- Left arm General: Well-appearing, well nourished, in no acute distress HEENT: PERRL, EOMI, external ears and nose appear unremarkable, airway is patent Neck: Supple, full range of motion Chest: Clear to auscultation; no evidence of respiratory distress Circulatory: RRR, extremities well perfused Abdomen: Non-distended, Non-Tender Extremities: Normal ROM, No edema Skin: Warm and dry Neuro: Alert and oriented, no focal deficits Results Labs Reviewed COMPREHENSIVE METABOLIC PANEL - Abnormal Result Value Sodium 135 Potassium 4.6 Chloride 100 CO2 30 Anion Gap 5 Glucose 160 (*) BUN 26 (*) Creatinine 0.99 eGFR 56 (*) BUN/Creatinine Ratio 26.3 Calcium 10.0 AST (SGOT) 6 (*) ALT (SGPT) 15 Alkaline Phosphatase 82 Total Protein 7.6 Albumin 3.9 Total Bilirubin 0.3 LIPASE - Abnormal Lipase 80 (*) MAGNESIUM - Abnormal Magnesium 1.7 (*) CBC WITH AUTO DIFFERENTIAL - Abnormal WBC 10.7 RBC 4.70 Hemoglobin 12.0 Hematocrit 38.3 MCV 81.0 MCH 25.4 (*) MCHC 31.3 (*) RDW 13.3 Platelets 293 MPV 10.0 NRBC 0.0 NRBC Absolute 0.00 Neutrophils Relative 68.1 Lymphocytes Relative 22.9 Monocytes Relative 7.2 Eosinophils Relative 0.7 Basophils Relative 0.5 Immature Granulocytes Relative 0.6 Neutrophils Absolute 7.27 (*) Lymphocytes Absolute 2.44 Monocytes Absolute 0.77 Eosinophils Absolute 0.08 Basophils Absolute 0.05 Immature Granulocytes Absolute 0.06 (*) POCT GLUCOSE, BLOOD - Abnormal Glucose POCT 132 (*) TROPONIN I HIGH SENSITIVITY - Normal High Sensitivity Troponin I 4 Narrative: High levels of biotin in samples may falsely decrease hsTroponin values. Use caution when interpreting hsTroponin results in patients taking biotin who exhibit renal impairment (eGFR <60) or in patients taking more than 20 mg/day of biotin. TROPONIN I HIGH SENSITIVITY - Normal High Sensitivity Troponin I 6 Narrative: High levels of biotin in samples may falsely decrease hsTroponin values. Use caution when interpreting hsTroponin results in patients taking biotin who exhibit renal impairment (eGFR <60) or in patients taking more than 20 mg/day of biotin. B-TYPE NATRIURETIC PEPTIDE - Normal BNP 60 C-REACTIVE PROTEIN - Normal C-Reactive Protein <0.29 CBC AND DIFFERENTIAL Narrative: The following orders were created for panel order CBC and differential. Procedure Abnormality Status --------- ------ CBC auto differential[[id number]] Abnormal Final result Please view results for these tests on the individual orders. Abnormal Labs Reviewed COMPREHENSIVE METABOLIC PANEL - Abnormal; Notable for the following components: Result Value Glucose 160 (*) BUN 26 (*) eGFR 56 (*) AST (SGOT) 6 (*) All other components within normal limits LIPASE - Abnormal; Notable for the following components: Lipase 80 (*) All other components within normal limits MAGNESIUM - Abnormal; Notable for the following components: Magnesium 1.7 (*) All other components within normal limits CBC WITH AUTO DIFFERENTIAL - Abnormal; Notable for the following components: MCH 25.4 (*) MCHC 31.3 (*) Neutrophils Absolute 7.27 (*) Immature Granulocytes Absolute 0.06 (*) All other components within normal limits POCT GLUCOSE, BLOOD - Abnormal; Notable for the following components: Glucose POCT 132 (*) All other components within normal limits XR Chest 2 Views (Results Pending) I have discussed the incidental/abnormal imaging and/or lab abnormalities with the patient and haveinstructed them the need for further evaluation and workup with their primary care doctor. I have provided the patient with a paper copy of the abnormality. The laboratory results, imaging results and other diagnostic exam results were reviewed in the EMR. EKG Interpretation Critical Care Time None ? Medical Decision Making Medications bisacodyL (DULCOLAX) EC tablet 10 mg (has no administration in time range) acetaminophen (TYLENOL) tablet 1,000 mg (has no administration in time range) nitroglycerin (NITRO-BID) 2 % ointment 0.5 inch (0.5 inches Topical Given 10/30/24 174) aspirin chewable tablet 324 mg (324 mg oral Given 10/30/24 184) ED Course as of 10/30/242054Oct 30, 2024 173 High Sensitivity Troponin I: 4 [DD] 1833 Pt with heart score 5 notable for age, risk factors, cp releived with ntg, will admit. Considered possibility of unstable angina, nstemi, stemi, ptx, pneumonia. [DD] ED Course User Index [DD] RADHA Romero Clinical Impressions as of 10/30/242054 Chest pain at rest Procedures Procedures Diagnosis 1. Chest pain at rest Disposition Observation ED Prescriptions None Physician Attestation RADHA Romero 10/30/24 1735 RADHA Romero 10/30/24 175 RADHA Romero 10/30/24 185 Mark Woodard MD 10/30/242055 documented in this encounter Plan of Treatment Upcoming Encounters Date Type Department Care Team (Late st Contact Info) Description 12/03/2024 1:30 PM EDT Office Visit Infectious Disease - [place] [address] [place] [phone] Natalie Govea MD [address] [place] [address] 05/08/2025 10:45 AM EDT Office Visit Pulmonolgy - [place] [address] [place] [phone] Fco Parsons MD [address] [place] [address] Scheduled Orders Name Type Priority Associated Diagnoses Orde r Schedule Nuclear stress test with myocardial perfusion Cardiac Nuclear Medicine Routine Chest pain at rest Expected: 11/07/2024, Expires: 10/31/2025 documented as of this encounter Procedures Procedure Name Priority Date/Time Associated Diagnosis Comments ECG ANNOTATED 11/01/2024 TROPONIN I HIGH SENSITIVITY STAT 10/31/2024 8:48 AM EDT POCT GLUCOSE BLOOD Routine 10/31/2024 7: 30 AM EDT COMPLETE BLOOD COUNT Routine 10/31/2024 5:20 AM EDT BASIC METABOLIC PANEL Routine 10/31/2024 5:20 AM EDT ECG ANNOTATED 10/31/2024 POCT GLUCOSE BLOOD Routine 10/30/2024 11 :34 PM EDT POCT GLUCOSE BLOOD Routine 10/30/2024 8: 33 PM EDT XR CHEST 2 VIEWS STAT 10/30/2024 6:13 PM EDT ECG 12-LEAD STAT 10/30/2024 6:04 PM EDT TROPONIN I HIGH SENSITIVITY STAT 10/30/2024 5:12 PM EDT TROPONIN I HIGH SENSITIVITY STAT 10/30/2024 3:09 PM EDT CBC WITH AUTO DIFFERENTIAL STAT 10/30/2024 3:09 PM EDT CBC AND DIFFERENTIAL STAT 10/30/2024 3:09 PM EDT C-REACTIVE PROTEIN STAT Add-on 10/30/2024 3: 09 PM EDT B-TYPE NATRIURETIC PEPTIDE STAT 10/30/2024 3:09 PM EDT MAGNESIUM STAT 10/30/2024 3:09 PM EDT LIPASE STAT 10/30/2024 3:09 PM EDT COMPREHENSIVE METABOLIC PANEL STAT 10/30/2024 3:09 PM EDT ECG 12-LEAD STAT 10/30/2024 2:57 PM EDT documented in this encounter Results * ECG-Annotated (11/01/2024) us Provider Onbase MD ECG ORDERABLES Final Result * Troponin I high sensitivity (10/31/2024 8:48 AM EDT) High Sensitivity Troponin I 6 <=54 ng/L LAB CHEMISTRY METHOD 10/31/2024 9:[address] [facility] Blood Venous blood specimen / Unknown Venipuncture / Unknown 10/31/2024 8:48 AM EDT 10/31/2024 8:[address] [facility] - 10/31/2024 9:33 AM EDT High levels of biotin in samples may falsely decrease hsTroponin values. ??Use caution when interpreting hsTroponin results in patients taking biotin who exhibit renal impairment (eGFR <60) or in patients taking more than 20 mg/day of biotin. us Vineet Mcclellan MD LAB BLOOD ORDERABLES F inal Result Performing Organization Address [facility]/ZIP Co de Phone Number [facility] [address] [place] [address], [place] [phone] * (ABNORMAL) POCT Glucose, blood (10/31/2024 7:30 AM EDT) [facility] Glucose POCT 116(H) 70 - 100 mg/dL 10/31/2024 7:[address] [facility] Blood Capillary blood specimen / Unknown 10/31/2024 7:30 AM EDT 10/31/2024 7:32 AM EDT us Vineet Mcclellan MD LAB POINT OF C ARE TEST DOCKED DEVICE UNSOLICITED RESULTS Final Result Performing Organization Address [facility] de Phone Number [facility] [address] [place] [address], [place] [phone] * (ABNORMAL) Complete blood count (10/31/2024 5:20 AM EDT) [facility] WBC 7.5 4.8 - 10.8 K/mcL LAB HEMETOLOGY METHOD 10/31/2024 6:[address] [facility] RBC 4.50 3.80 - 4.80 M/mcL LAB HEMETOLOGY METHOD 10/31/2024 6:[address] [facility] Hemoglobin 11.4(L) 11.5 - 16.0 g/dL LAB HEMETOLOGY METHOD 10/31/2024 6:[address] [facility] Hematocrit 36.3 35.0 - 47.0 % LAB HEMETOLOGY METHOD 10/31/2024 6:[address] [facility] MCV 80.1 79.0 - 98.0 FL LAB HEMETOLOGY METHOD 10/31/2024 6:[address] [facility] MCH 25.2(L) 27.0 - 32.0 pcg LAB HEMETOLOGY METHOD 10/31/2024 6:[address] [facility] MCHC 31.4(L) 32.0 - 37.0 g/dL LAB HEMETOLOGY METHOD 10/31/2024 6:[address] [facility] RDW 13.5 11.0 - 15.0 % LAB HEMETOLOGY METHOD 10/31/2024 6:[address] [facility] Platelets 274 130 - 400 K/mcL LAB HEMETOLOGY METHOD 10/31/2024 6:[address] [facility] MPV 9.9 7.0 - 11.0 FL LAB HEMETOLOGY METHOD 10/31/2024 6:[address] [facility] NRBC 0.0 <1.0 % LAB HEMETOLOGY METHOD 10/31/2024 6:[address] [facility] NRBC Absolute 0.00 <0.10 K/mcL LAB HEMETOLOGY METHOD 10/31/2024 6:[address] [facility] Blood Venous blood specimen / Unknown Venipuncture / Unknown 10/31/2024 5:20 AM EDT 10/31/2024 5:54 AM EDT us Rodger De La O MD LAB BLOOD ORDERABLES Final Resu lt [facility] [address] [place] [address], * (ABNORMAL) Basic metabolic panel (10/31/2024 5:20 AM EDT) Sodium 138 133 - 145 mmol/L LAB CHEMISTRY METHOD 10/31/2024 6:43 AM [facility] Potassium 4.2 3.5 - 5.5 mmol/L LAB CHEMISTRY METHOD 10/31/2024 6:43 AM [facility] Chloride 104 96 - 110 mmol/L LAB CHEMISTRY METHOD 10/31/2024 6:43 AM [facility] CO2 33(H) 21 - 32 mmol/L LAB CHEMISTRY METHOD 10/31/2024 6:43 AM [facility] Anion Gap 1(L) 3 - 11 LAB CHEMISTRY METHOD 10/31/2024 6:43 AM [facility] Glucose 106(H) 70 - 100 mg/dL LAB CHEMISTRY METHOD 10/31/2024 6:43 AM [facility] BUN 25 5 - 25 mg/dL LAB CHEMISTRY METHOD 10/31/2024 6:43 AM [facility] Creatinine 0.84 0.50 - 1.10 mg/dL LAB CHEMISTRY METHOD 10/31/2024 6:43 AM [facility] eGFR 68 >=60 mL/min/1. 73m2 LAB CHEMISTRY METHOD 10/31/2024 6:43 AM [facility] Comment:Calculation based on the??Chronic Kidney Disease Epidemiology Collaboration (CKD-EPI) equation refit??without adjustment for race. BUN/Creatinine Ratio 29.8 LAB CHEMISTRY METHOD 10/31/2024 6:43 AM [facility] Calcium 9.6 8.5 - 10.5 mg/dL LAB CHEMISTRY METHOD 10/31/2024 6:43 AM [facility] Blood Venous blood specimen / Unknown Venipuncture / Unknown 10/31/2024 5:20 AM EDT 10/31/2024 5:55 AM EDT Rodger De La O MD LAB BLOOD ORDERABLES Final Resu lt Performing Organization Address [facility]/ZIP Co de Phone Number [facility] [address] [place] [address], [place] [phone] * ECG-Annotated (10/31/2024) Provider Onbase ECG ORDERABLES Final Result * (ABNORMAL) POCT Glucose, blood (10/30/2024 11:34 PM EDT) Glucose POCT 172(H) 70 - 100 mg/dL 10/30/2024 11:[address] [facility] Blood Capillary blood specimen / Unknown 10/30/2024 11:34 PM EDT 10/30/2024 11:36 PM EDT Eliseo Lacy MD LAB POINT OF CARE T EST DOCKED DEVICE UNSOLICITED RESULTS Final Result Performing Organization Address [facility]/ZIP Co de Phone Number [facility] [address] [place] [address], [place] [phone] * (ABNORMAL) POCT Glucose, blood (10/30/2024 8:33 PM EDT) Glucose POCT 132(H) 70 - 100 mg/dL 10/30/2024 8:[address] [facility] Blood Capillary blood specimen / Unknown 10/30/2024 8:33 PM EDT 10/30/2024 8:34 PM EDT Eliseo Lacy MD LAB POINT OF CARE T EST DOCKED DEVICE UNSOLICITED RESULTS Final Result Performing Organization Address City/[facility]/ZIP Co de Phone Number [facility] [address] [place] [address], [place] [phone] * XR Chest 2 Views (10/30/2024 6:13 PM EDT) Anatomical Region Laterality Modality Body Radiographic Rosey ging 10/31/2024 11:2 7 AM EDT Impressions 10/31/2024 11:27 AM EDT FINDINGS/IMPRESSION: Lungs are clear. ??No pleural effusion or pneumothorax. ??Cardiac silhouette is normal in size. ??Degenerative changes seen throughout the bones. -------- FINAL REPORT -------- Dictated By: JUSTIN MONCADA Dictated Date: 10/31/2024 11:27 ET Assigned Physician: JUSTIN MONCADA Reviewed and Electronically Signed By: JUSTIN MONCADA Signed Date: 10/31/2024 11:27 ET Workstation ID: [id number] Transcribed By: Self Edit Transcribed Date: 10/31/2024 11:27 ET Narrative 10/31/2024 11:27 AM EDT XR CHEST 2 VIEWS INDICATION: ??Pain TECHNIQUE: XR CHEST 2 VIEWS COMPARISON: 08/28/2024 Procedure Note Justin Moncada MD - 10/31/2024 XR CHEST 2 VIEWS INDICATION: Pain TECHNIQUE: XR CHEST 2 VIEWS COMPARISON: 08/28/2024 IMPRESSION: FINDINGS/IMPRESSION: Lungs are clear. No pleural effusion orpneumothorax. Cardiac silhouette is normal in size. Degenerative changesseen throughout the bones. -------- FINAL REPORT -------- Dictated By: JUSTIN MONCADA Dictated Date: 10/31/2024 11:27 ET Assigned Physician: JUSTIN MONCADA Reviewed and Electronically Signed By: JUSTIN MONCADA Signed Date: 10/31/2024 11:27 ET Workstation ID: [id number] Transcribed By: Self Edit Transcribed Date: 10/31/2024 11:27 ET us Mark Woodard MD IMG XR PROCEDURES Final Result * ECG 12 lead (10/30/2024 6:04 PM EDT) Ventricular Rate ECG 79 BPM GEMUSE Atrial Rate 79 BPM GEMUSE P-R Interval 182 ms GEMUSE QRS Duration 122 ms GEMUSE Q-T Interval 382 ms GEMUSE QTc 438 ms GEMUSE P Wave [place] 70 degrees GEMUSE R [place] 57 degrees GEMUSE T [place] 60 degrees GEMUSE ECG Interpretation Normal sinus rhythm Right bundle branch block Abnormal ECG When compared with ECG of 30-OCT-2024 14:57, No significant change was found Confirmed by MD Edgardo Spooner ([id number]) on 11/01/2024 1:06:52 AM GEMUSE 10/30/2024 6:04 PM EDT 11/01/2024 1:06 AM EDT Mark Woodard MD ECG ORDERABLES Final Result Performing Organization Address [facility] de Phone Number GEMUSE * Troponin I high sensitivity (10/30/2024 5:12 PM EDT) [facility] High Sensitivity Troponin I 6 <=54 ng/L LAB CHEMISTRY METHOD 10/30/2024 6:[address] [facility] Blood Venous blood specimen / Unknown Venipuncture / Unknown 10/30/2024 5:12 PM EDT 10/30/2024 5:[address] [facility] - 10/30/2024 6:05 PM EDT High levels of biotin in samples may falsely decrease hsTroponin values. ??Use caution when interpreting hsTroponin results in patients taking biotin who exhibit renal impairment (eGFR <60) or in patients taking more than 20 mg/day of biotin. Mark Woodard MD LAB BLOOD ORDERABLES Final Resu lt Performing Organization Address [facility] Co de Phone Number [facility] [address] [place] [address], * C-reactive protein (10/30/2024 3:09 PM EDT) [facility] C-Reactive Protein <0.29 <=0.50 mg/dL LAB CHEMISTRY METHOD 10/30/2024 8:[address] [facility] Blood Venous blood specimen / Unknown Venipuncture / Unknown 10/30/2024 3:09 PM EDT 10/30/2024 3:19 PM EDT us Eliseo Lacy MD LAB BLOOD ORDERABLES Final Result [facility] [address] [place] [address], * (ABNORMAL) CBC auto differential (10/30/2024 3:09 PM EDT) WBC 10.7 4.8 - 10.8 K/mcL LAB HEMETOLOGY METHOD 10/30/2024 3:[address] [facility] RBC 4.70 3.80 - 4.80 M/mcL LAB HEMETOLOGY METHOD 10/30/2024 3:[address] [facility] Hemoglobin 12.0 11.5 - 16.0 g/dL LAB HEMETOLOGY METHOD 10/30/2024 3:[address] [facility] Hematocrit 38.3 35.0 - 47.0 % LAB HEMETOLOGY METHOD 10/30/2024 3:[address] [facility] MCV 81.0 79.0 - 98.0 FL LAB HEMETOLOGY METHOD 10/30/2024 3:[address] [facility] MCH 25.4(L) 27.0 - 32.0 pcg LAB HEMETOLOGY METHOD 10/30/2024 3:[address] [facility] MCHC 31.3(L) 32.0 - 37.0 g/dL LAB HEMETOLOGY METHOD 10/30/2024 3:[address] [facility] RDW 13.3 11.0 - 15.0 % LAB HEMETOLOGY METHOD 10/30/2024 3:[address] [facility] Platelets 293 130 - 400 K/mcL LAB HEMETOLOGY METHOD 10/30/2024 3:29 PM [facility] MPV 10.0 7.0 - 11.0 FL LAB HEMETOLOGY METHOD 10/30/2024 3:29 PM [facility] NRBC 0.0 <1.0 % LAB HEMETOLOGY METHOD 10/30/2024 3:29 PM [facility] NRBC Absolute 0.00 <0.10 K/mcL LAB HEMETOLOGY METHOD 10/30/2024 3:29 PM [facility] Neutrophils Relative 68.1 % LAB HEMETOLOGY METHOD 10/30/2024 3:29 PM [facility] Lymphocytes Relative 22.9 % LAB HEMETOLOGY METHOD 10/30/2024 3:29 PM [facility] Monocytes Relative 7.2 % LAB HEMETOLOGY METHOD 10/30/2024 3:29 PM [facility] Eosinophils Relative 0.7 % LAB HEMETOLOGY METHOD 10/30/2024 3:29 PM [facility] Basophils Relative 0.5 % LAB HEMETOLOGY METHOD 10/30/2024 3:29 PM [facility] Immature Granulocytes Relative 0.6 % LAB HEMETOLOGY METHOD 10/30/2024 3:29 PM [facility] Neutrophils Absolute 7.27(H) 1.50 - 7.00 K/mcL LAB HEMETOLOGY METHOD 10/30/2024 3:29 PM [facility] Lymphocytes Absolute 2.44 1.00 - 5.00 K/mcL LAB HEMETOLOGY METHOD 10/30/2024 3:29 PM [facility] Monocytes Absolute 0.77 0.20 - 1.00 K/mcL LAB HEMETOLOGY METHOD 10/30/2024 3:29 PM [facility] Eosinophils Absolute 0.08 0.00 - 0.50 K/[facility] LAB HEMETOLOGY METHOD 10/30/2024 3:[address] [facility] Basophils Absolute 0.05 0.00 - 0.20 K/[facility] LAB HEMETOLOGY METHOD 10/30/2024 3:[address] [facility] Immature Granulocytes Absolute 0.06(H) 0.00 - 0.03 K/[facility] LAB HEMETOLOGY METHOD 10/30/2024 3:[address] [facility] Blood Venous blood specimen / Unknown Venipuncture / Unknown 10/30/2024 3:09 PM EDT 10/30/2024 3:19 PM EDT Mrak Woodard MD LAB BLOOD ORDERABLES Final Resu lt Performing Organization Address [facility]/ZIP Co de Phone Number [facility] [address] [place] [address], [place] [phone] * B-type natriuretic peptide (10/30/2024 3:09 PM EDT) Pathologist [facility] BNP 60 <=100 pcg/mL LAB CHEMISTRY METHOD 10/30/2024 4:[address] [facility] Blood Venous blood specimen / Unknown Venipuncture / Unknown 10/30/2024 3:09 PM EDT 10/30/2024 3:19 PM EDT Mark Woodard MD LAB BLOOD ORDERABLES Final Resu lt Performing Organization Address [facility]/ZIP Co de Phone Number [facility] [address] [place] [address], [place] [phone] * (ABNORMAL) Magnesium (10/30/2024 3:09 PM EDT) Magnesium 1.7(L) 1.9 - 2.6 mg/dL LAB CHEMISTRY METHOD 10/30/2024 4:[address] [facility] Blood Venous blood specimen / Unknown Venipuncture / Unknown 10/30/2024 3:09 PM EDT 10/30/2024 3:19 PM EDT Mark Woodard MD LAB BLOOD ORDERABLES Final Resu lt Performing Organization Address City/[facility]/ZIP Co de Phone Number [facility] [address] [place] [address], [place] [phone] * (ABNORMAL) Lipase (10/30/2024 3:09 PM EDT) Lipase 80(H) 13 - 75 unit/L LAB CHEMISTRY METHOD 10/30/2024 4:[address] [facility] Blood Venous blood specimen / Unknown Venipuncture / Unknown 10/30/2024 3:09 PM EDT 10/30/2024 3:19 PM EDT Mark Woodard MD LAB BLOOD ORDERABLES Final Resu lt Performing Organization Address City/[facility]/ZIP Co de Phone Number [facility] [address] [place] [address], [place] [phone] * (ABNORMAL) Comprehensive metabolic panel (10/30/2024 3:09 PM EDT) Sodium 135 133 - 145 mmol/L LAB CHEMISTRY METHOD 10/30/2024 4:[address] [facility] Potassium 4.6 3.5 - 5.5 mmol/L LAB CHEMISTRY METHOD 10/30/2024 4:[address] [facility] Chloride 100 96 - 110 mmol/L LAB CHEMISTRY METHOD 10/30/2024 4:[address] [facility] CO2 30 21 - 32 mmol/L LAB CHEMISTRY METHOD 10/30/2024 4:[address] [facility] Anion Gap 5 3 - 11 LAB CHEMISTRY METHOD 10/30/2024 4:40 PM [facility] Glucose 160(H) 70 - 100 mg/dL LAB CHEMISTRY METHOD 10/30/2024 4:40 PM [facility] BUN 26(H) 5 - 25 mg/dL LAB CHEMISTRY METHOD 10/30/2024 4:40 PM [facility] Creatinine 0.99 0.50 - 1.10 mg/dL LAB CHEMISTRY METHOD 10/30/2024 4:40 PM [facility] eGFR 56(L) >=60 mL/min/1. 73m2 LAB CHEMISTRY METHOD 10/30/2024 4:40 PM [facility] Comment:Calculation based on the??Chronic Kidney Disease Epidemiology Collaboration (CKD-EPI) equation refit??without adjustment for race. BUN/Creatinine Ratio 26.3 LAB CHEMISTRY METHOD 10/30/2024 4:40 PM [facility] Calcium 10.0 8.5 - 10.5 mg/dL LAB CHEMISTRY METHOD 10/30/2024 4:40 PM [facility] AST (SGOT) 6(L) 10 - 42 unit/L LAB CHEMISTRY METHOD 10/30/2024 4:40 PM [facility] ALT (SGPT) 15 10 - 60 unit/L LAB CHEMISTRY METHOD 10/30/2024 4:40 PM [facility] Alkaline Phosphatase 82 42 - 121 unit/L LAB CHEMISTRY METHOD 10/30/2024 4:40 PM [facility] Total Protein 7.6 6.0 - 8.0 g/dL LAB CHEMISTRY METHOD 10/30/2024 4:40 PM [facility] Albumin 3.9 3.2 - 5.0 g/dL LAB CHEMISTRY METHOD 10/30/2024 4:40 PM [facility] Total Bilirubin 0.3 0.0 - 1.4 mg/dL LAB CHEMISTRY METHOD 10/30/2024 4:[address] [facility] Blood Venous blood specimen / Unknown Venipuncture / Unknown 10/30/2024 3:09 PM EDT 10/30/2024 3:19 PM EDT Mark Woodard MD LAB BLOOD ORDERABLES Final Resu lt Performing Organization Address [facility] Co de Phone Number [facility] [address] [place] [address], [place] [phone] * Troponin I high sensitivity (10/30/2024 3:09 PM EDT) [facility] High Sensitivity Troponin I 4 <=54 ng/L LAB CHEMISTRY METHOD 10/30/2024 4:[address] [facility] Blood Venous blood specimen / Unknown Venipuncture / Unknown 10/30/2024 3:09 PM EDT 10/30/2024 3:[address] [facility] - 10/30/2024 4:25 PM EDT High levels of biotin in samples may falsely decrease hsTroponin values. ??Use caution when interpreting hsTroponin results in patients taking biotin who exhibit renal impairment (eGFR <60) or in patients taking more than 20 mg/day of biotin. Mark Woodard MD LAB BLOOD ORDERABLES Final Resu lt Performing Organization Address [facility] Co de Phone Number [facility] [address] [place] [address], [place] [phone] * ECG 12 lead (10/30/2024 2:57 PM EDT) [facility] Ventricular Rate ECG 100 BPM GEMUSE Atrial Rate 100 BPM GEMUSE P-R Interval 182 ms GEMUSE QRS Duration 120 ms GEMUSE Q-T Interval 352 ms GEMUSE QTc 454 ms GEMUSE P Wave [place] 78 degrees GEMUSE R [place] 34 degrees GEMUSE T [place] 58 degrees GEMUSE ECG Interpretation Normal sinus rhythm Right bundle branch block Abnormal ECG When compared with ECG of 04-SEP-2024 08:56, No significant change was found Confirmed by MD Reynoso Christopher ([id number]) on 11/01/2024 1:05:15 AM GEMUSE 10/30/2024 2:57 PM EDT 11/01/2024 1:05 AM EDT us Mark Woodard MD ECG ORDERABLES Final Result JACOB documented in this encounter Visit Diagnoses Diagnosis Chest pain- Primary Unspecified chest pain Chest pain at rest Unspecified chest pain Hypertension Unspecified essential hypertension Paroxysmal atrial fibrillation (CMS/HCC V24, CMS/HCC V28) Atrial fibrillation documented in this encounter Admitting Diagnoses Diagnosis Chest pain Unspecified chest pain documented in this encounter Administered Medications Inactive Administered Medications - up to 3 most recent administrations Medication Order MAR Action Action Date Dose Rate Site acetaminophen (TYLENOL) tablet 1,000 mg 1,000 mg, oral, Every 8 hours scheduled, First dose on Mon10/30/24 at 2200, Scheduled medication for mild pain apixaban (ELIQUIS) tablet 5 mg 5 mg, oral, 2 times daily, First dose on Mon10/30/24 at 2306, Indication: VTE/PE Prophylaxis Given 10/31/2024 10:10 AM EDT 5 mg aspirin chewable tablet 324 mg 324 mg, oral, Once, On Mon10/30/24 at 1833, For 1 dose Given 10/30/2024 6:47 PM EDT 324 mg atorvastatin (LIPITOR) tablet 40 mg 40 mg, oral, Daily, First dose (after last modification) on Mon11/01/24 at 0900 bisacodyL (DULCOLAX) EC tablet 10 mg 10 mg, oral, Daily PRN, constipation, Starting on Mon10/30/24 at 1843, 1st line for treatment of constipation - give scheduled if no bowel movement in past 24 hours. Do not crush, chew, or split. budesonide (PULMICORT) 1 mg/2 mL nebulizer solution 1 mg 1 mg, nebulization, Daily, First dose on Mon10/31/24 at 0800, Rinse mouth with water after use to reduce aftertaste and incidence of candidiasis. Do not swallow. Therapeutic substitution for ADVAIR DISKUS 500/50 is budesonide neb daily and formoterol neb twice daily. dextrose (D50W) 50% injection 12.5 g 12.5 g, intravenous, Every 15 min PRN, low blood sugar, moderate hypoglycemia *Patient is Unconscious, NPO, unable to swallow: BG 54 - 69 mg/dl*, Starting on Mon10/30/24 at 2340 dextrose (D50W) 50% injection 25 g 25 g, intravenous, Every 15 min PRN, low blood sugar, severe hypoglycemia *Patient is Unconscious, NPO, unable to swallow: BG LESS than 54 mg/dL*, Starting on Mon10/30/24 at 2340 dextrose 15 gram/60 mL oral solution 15 g 15 g, oral, Every 15 min PRN, low blood sugar, hypoglycemia *Patient conscious AND able to drink and swallow safely*, Starting on Mon10/30/24 at 2340 dextrose 15 gram/60 mL oral solution 30 g 30 g, oral, Every 15 min PRN, low blood sugar, hypoglycemia *Patient conscious AND able to drink and swallow safely*, Starting on Mon10/30/24 at 2340 formoterol (PERFOROMIST) 20 mcg/2 mL nebulizer solution 20 mcg 20 mcg, nebulization, 2 times daily, First dose on Mon10/30/24 at 2306, Therapeutic substitution for ADVAIR DISKUS 500/50 is budesonide neb daily and formoterol neb twice daily. gabapentin (NEURONTIN) capsule 100 mg 100 mg, oral, Nightly, First dose on Mon10/30/24 at 2306 Given 10/30/2024 11:17 PM EDT 100 mg Glucagon HCl (rDNA) injection 1 mg 1 mg, intramuscular, Once as needed, low blood sugar, severe hypoglycemia, Starting on Mon10/30/24 at 2340, For 1 dose insulin lispro injection 1-6 Units 1-6 Units, subcutaneous, 4 times daily before meals and nightly, First dose on Mon10/30/24 at 2341, Indication: Total Daily Dose (TDD) LESS than 40 units Correction Scale: Low Dose Administer with meal and/or mealtime dose of insulin to correct high blood glucose If mealtime insulin dose not given (e.g. patient NPO or not eating), still administer correction factor for high blood glucose Given 10/30/2024 11:48 PM EDT 1 Units Left Upper Arm (Back) isosorbide mononitrate (IMDUR) 24 hr tablet 30 mg 30 mg, oral, Daily, First dose on Mon10/31/24 at 0900, Do not crush or chew. Given 10/31/2024 10:11 AM EDT 30 mg isosorbide mononitrate (IMDUR) 24 hr tablet 30 mg 30 mg, oral, Once, On Mon10/31/24 at 1057, For 1 dose, Total 60 mg today Do not crush or chew. Given 10/31/2024 11:28 AM EDT 30 mg losartan (COZAAR) tablet 25 mg 25 mg, oral, Daily, First dose on Mon10/31/24 at 0900 Given 10/31/2024 10:10 AM EDT 25 mg magnesium oxide (MAG-OX) tablet 400 mg 400 mg, oral, Daily, First dose on Mon10/31/24 at 0900 Given 10/31/2024 10:10 AM EDT 400 mg metoprolol succinate (TOPROL-XL) 24 Hour tablet 100 mg 100 mg, oral, Daily, First dose on Mon10/31/24 at 0900, Do not crush or chew., Indications: hypertensionIndications: hypertension Given 10/31/2024 10:10 AM EDT 100 mg nitroglycerin (NITRO-BID) 2 % ointment 0.5 inch 0.5 inch, Topical, Once, On Mon10/30/24 at 1732, For 1 dose Given 10/30/2024 5:41 PM EDT 0.5 inches pantoprazole (PROTONIX) EC tablet 40 mg 40 mg, oral, Every morning before breakfast, First dose on Mon10/31/24 at 0700, Do not crush, chew, or split. Given 10/31/2024 6:15 AM EDT 40 mg documented in this encounter Discontinued Medications Medication Sig Discontinue Reason Start Date End Da te azelastine-fluticasone 137-50 mcg/spray spray,non-aerosol Administer 1 spray into affected nostril(s) 2 (two) times a day. 04/25/2017 10/30/2024 budesonide (PULMICORT) 0.25 mg/2 mL nebulizer solution Inhale 2 mL (0.25 mg total) by mouth 1 (one) time each day. 10/06/2023 10/30/2024 calcium carbonate-vit D3-min 600 mg calcium- 400 unit tablet Take 1 tablet by mouth 2 (two) times a day. 05/01/2015 10/30/2024 denosumab (Prolia) 60 mg/mL syringe syringe Inject 1 mL (60 mg total) under the skin 1 (one) time. 02/18/2022 10/30/2024 fluticasone propionate (FLONASE) 50 mcg/actuation nasal spray Administer 2 sprays into affected nostril(s) 1 (one) time each day if needed for allergies. 10/09/2018 10/30/2024 hydrOXYzine HCL (ATARAX) 25 mg tablet Take 1 tablet (25 mg total) by mouth 3 times daily as needed. 10/30/2024 montelukast (SINGULAIR) 10 mg tablet Take 1 tablet (10 mg total) by mouth at bedtime. 11/12/2019 10/30/2024 ipratropium (ATROVENT) 0.02 % nebulizer solutionIndications:CO PD exacerbation (CMS/HCC V24, CMS/HCC V28) Take 2.5 mL (0.5 mg total) by nebulization 4 (four) times a day. 08/28/2024 10/30/2024 Jardiance 10 mg tablet Take 1 tablet (10 mg total) by mouth 1 (one) time each day. 06/16/2024 10/30/2024 albuterol HFA (PROAIR HFA ; PROVENTIL HFA ; VENTOLIN HFA) 90 mcg/actuation inhaler Inhale 1-2 puffs by mouth every 6 (six) hours if needed for wheezing or shortness of breath (Cough). 02/24/2023 10/30/2024 amLODIPine (NORVASC) 5 mg tablet Take 1 tablet (5 mg total) by mouth 1 (one) time each day. 11/12/2019 10/30/2024 isosorbide mononitrate (IMDUR) 30 mg 24 hr tablet Take 1 tablet (30 mg total) by mouth 1 (one) time each day. Stop Taking at Discharge 02/05/2020 10/31/2024 documented as of this encounter Historical Medications * This list may reflect changes made after this encounter. pioglitazone (ACTOS) 30 mg tablet Take 1 tablet (30 mg total) by mouth 1 (one) time each day. 10/16/2024 losartan (COZAAR) 25 mg tablet Take 1 tablet (25 mg total) by mouth 1 (one) time each day. 10/16/2024 added in this encounter Active and Recently Administered Medications Times are shown in EDT. 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 2318 (Not Given - Provider: Alyx Suarez RN - Reason: Patient/Resident/Agent refused - education provided - Comment: provider aware) 1010 (Given - Provider: Luana Mantilla RN) aspirin chewable tablet 324 mg (COMPLETED) 324 mg, oral, Once, On Mon10/30/24 at 1833, For 1 dose 1847 (Given - Provider: Dianna Freeman, THANG) atorvastatin (LIPITOR) tablet 40 mg 40 mg, oral, Daily, First dose (after last modification) on Mon11/01/24 at 0900 budesonide (PULMICORT) 1 mg/2 mL nebulizer solution 1 mg(Linked Group 1) 1 mg, nebulization, Daily, First dose on Mon10/31/24 at 0800, Rinse mouth with water after use to reduce aftertaste and incidence of candidiasis. Do not swallow. Therapeutic substitution for ADVAIR DISKUS 500/50 is budesonide neb daily and formoterol neb twice daily. 0842 (Not Given - Provider: Juhi Hernandez RRT - Reason: Patient/Resident/Agent refused - education provided ) formoterol (PERFOROMIST) 20 mcg/2 mL nebulizer solution 20 mcg(Linked Group 1) 20 mcg, nebulization, 2 times daily, First dose on Mon10/30/24 at 2306, Therapeutic substitution for ADVAIR DISKUS 500/50 is budesonide neb daily and formoterol neb twice daily. 2318 (Not Given - Provider: Alyx Suarez RN - Reason: Other - Comment: patient declined-she doesn't take this med) 0842 (Not Given - Provider: Juhi Hernandez RRT - Reason: Patient/Resident/Agent refused - education provided ) gabapentin (NEURONTIN) capsule 100 mg 100 mg, oral, Nightly, First dose on Mon10/30/24 at 2306 2317 (Given - Provider: Alyx Suarez RN) insulin lispro injection 1-6 Units 1-6 Units, subcutaneous, 4 times daily before meals and nightly, First dose on Mon10/30/24 at 2341, Indication: Total Daily Dose (TDD) LESS than 40 units Correction Scale: Low Dose Administer with meal and/or mealtime dose of insulin to correct high blood glucose If mealtime insulin dose not given (e.g. patient NPO or not eating), still administer correction factor for high blood glucose 2348 (Given - Provider: Alyx Suarez RN) 0747 (Not Given - Provider: Luana Mantilla RN - Reason: Order parameters not met - Comment: glucose [id number] (Canceled Entry - Provider: Automatic Discharge Provider - Comment: Automatically canceled at discontinue of medication order) isosorbide mononitrate (IMDUR) 24 hr tablet 30 mg (CANCELED) 30 mg, oral, Daily, First dose on Mon10/31/24 at 0900, Do not crush or chew. 1011 (Given - Provid er: Luana Mantilla RN) isosorbide mononitrate (IMDUR) 24 hr tablet 30 mg (COMPLETED) 30 mg, oral, Once, On Mon10/31/24 at 1057, For 1 dose, Total 60 mg today Do not crush or chew. 1128 (Given - Provid er: Luana Mantilla RN) losartan (COZAAR) tablet 25 mg 25 mg, oral, Daily, First dose on Mon10/31/24 at 0900 1010 (Given - Provid er: Luana Mantilla RN) magnesium oxide (MAG-OX) tablet 400 mg 400 mg, oral, Daily, First dose on Mon10/31/24 at 0900 1010 (Given - Provid er: Luana Mantilla RN) metoprolol succinate (TOPROL-XL) 24 Hour tablet 100 mg 100 mg, oral, Daily, First dose on Mon10/31/24 at 0900, Do not crush or chew., Indications: hypertension 1010 (Given - Provid er: Luana Mantilla RN) nitroglycerin (NITRO-BID) 2 % ointment 0.5 inch (COMPLETED) 0.5 inch, Topical, Once, On Mon10/30/24 at 1732, For 1 dose 1741 (Given - Provider: Dianna Freeman RN) pantoprazole (PROTONIX) EC tablet 40 mg 40 mg, oral, Every morning before breakfast, First dose on Mon10/31/24 at 0700, Do not crush, chew, or split. 0615 (Given - Provid er: Concetta Fernandez RN) PRN Medication Order 10/29/2024 10/30/2024 10/31/2024 bisacodyL (DULCOLAX) EC tablet 10 mg 10 mg, oral, Daily PRN, constipation, Starting on Mon10/30/24 at 1843, 1st line for treatment of constipation - give scheduled if no bowel movement in past 24 hours. Do not crush, chew, or split. dextrose (D50W) 50% injection 12.5 g 12.5 g, intravenous, Every 15 min PRN, low blood sugar, moderate hypoglycemia *Patient is Unconscious, NPO, unable to swallow: BG 54 - 69 mg/dl*, Starting on Mon10/30/24 at 2340 dextrose (D50W) 50% injection 25 g 25 g, intravenous, Every 15 min PRN, low blood sugar, severe hypoglycemia *Patient is Unconscious, NPO, unable to swallow: BG LESS than 54 mg/dL*, Starting on Mon10/30/24 at 2340 dextrose 15 gram/60 mL oral solution 15 g 15 g, oral, Every 15 min PRN, low blood sugar, hypoglycemia *Patient conscious AND able to drink and swallow safely*, Starting on Mon10/30/24 at 2340 dextrose 15 gram/60 mL oral solution 30 g 30 g, oral, Every 15 min PRN, low blood sugar, hypoglycemia *Patient conscious AND able to drink and swallow safely*, Starting on Mon10/30/24 at 2340 Glucagon HCl (rDNA) injection 1 mg 1 mg, intramuscular, Once as needed, low blood sugar, severe hypoglycemia, Starting on Mon10/30/24 at 2340, For 1 dose Linked Groups Order Group 1: budesonide (PULMICORT) 1 mg/2 mL nebulizer solution 1 mgJump to med 1 mg, nebulization, Daily, First dose on Mon10/31/24 at 0800, Rinse mouth with water after use to reduce aftertaste and incidence of candidiasis. Do not swallow. Therapeutic substitution for ADVAIR DISKUS 500/50 is budesonide neb daily and formoterol neb twice daily. And formoterol (PERFOROMIST) 20 mcg/2 mL nebulizer solution 20 mcgJump to med 20 mcg, nebulization, 2 times daily, First dose on Mon10/30/24 at 2306, Therapeutic substitution for ADVAIR DISKUS 500/50 is budesonide neb daily and formoterol neb twice daily. documented in this encounter Orders Medications Ordered That [place] ht Not Have Been Administered Count Last Ordered Date First Ordered Date acetaminophen (TYLENOL) tablet 1,000 mg 1 0 10/30/2024 atorvastatin (LIPITOR) tablet 40 mg 2 10/30 bisacodyL (DULCOLAX) EC tablet 10 mg 1 03/2025 budesonide (PULMICORT) 1 mg/ 2 mL nebulizer solution 1 mg 1 10/30/2024 dextrose (D50W) 50% injection 12.5 g 1 03/2025 dextrose (D50W) 50% injection 25 g 1 2024 dextrose 15 gram/60 mL oral solution 15 g 1 10/30/2024 dextrose 15 gram/60 mL oral solution 30 g 1 10/30/2024 formoterol (PERFOROMIST) 20 mcg/2 mL nebulizer solution 20 mcg 1 10/30/2024 Glucagon HCl (rDNA) injection 1 mg 1 2024 Lab Orders Without Results Count Last Ordered D ate First Ordered Date POCT GLUCOSE, BLOOD 1 10/31/2024 Diet Count Last Ordered Date First Orde red Date ADULT DISCHARGE DIET 1 10/31/2024 Nursing Count Last Ordered Date First Orde red Date ACTIVITY 1 10/31/2024 FOLLOW UP PRIMARY PHYSICIAN 1 10/31/2024 Admission Count Last Ordered Date First Orde red Date INITIATE OBSERVATION STATUS 1 10/30/2024 Transfer Count Last Ordered Date First Orde red Date ED TO FLOOR BED REQUEST 1 10/30/2024 Discharge Count Last Ordered Date First Orde red Date DISCHARGE PATIENT 1 10/31/2024 documented in this encounter Care Teams Heavy Equipment Rental Manager Relationship Specialty Start Date End Date Pam Montoya MD 2 [facility] , [facility] [address] [facility] D/B/A: [facility] MERYL Braga PCP - General Internal Medicine 10/30/24 documented as of this encounter
--- OUTSIDE RECORDS SUMMARY | 2024-11-04 11:38 | XMS_ITS | Clinical Summary ---
Author Organization [employer] [facility] Address [address] [place] [address] Care Team Providers Care Reading Intervention Teacher Name Role Phone Pam Wills MD Primary [...] age to complete this topic Care Teams Reading Intervention Teacher Relationship Specialty Start Date End Date Pam Wills MD 2 [facility] [address] [facility] D/B/A: [facility] MERYL Braga [id number] PCP - General Internal Medicine 02/02/22
--- OUTSIDE RECORDS SUMMARY | 2024-11-04 11:38 | XMS_ITS | Clinical Summary ---
Author Organization 175 [facility] Address [address] [place] [address] Phone Care Team Providers Care Marker Shipments Name Role Phone Pam Montoya MD Primary Care Provider [phone] Allergies No known active allergies Medications magnesium oxide (MAG-OX) 400 mg magnesium tablet Take 1 tablet (400 mg total) by mouth 1 (one) time each day. Active apixaban (ELIQUIS) 5 mg tablet Take 1 tablet (5 mg total) by mouth 2 (two) times a day. Active cholecalciferol (VITAMIN D-3) 25 mcg (1,000 unit) capsule Take 1 capsule (1,000 Units total) by mouth 1 (one) time each day. 022 Active dulaglutide (Trulicity) 1.5 mg/0.5 mL pen injector injection Inject 0.5 mL (1.5 mg total) under the skin 1 (one) time per week. Monday 021 Active gabapentin (NEURONTIN) 100 mg capsule Take 1 capsule (100 mg total) by mouth at bedtime. Active metFORMIN (GLUCOPHAGE) 1,000 mg tablet Take 1 tablet (1,000 mg total) by mouth 2 (two) times a day with meals. 020 Active omeprazole (PriLOSEC) [address] capsule Take 1 capsule (20 mg total) by mouth 1 (one) time each day. Active tiZANidine (ZANAFLEX) 2 mg tablet Take 1 tablet (2 mg total) by mouth every 8 (eight) hours if needed for muscle spasms. Active metoprolol succinate (TOPROL-XL) 100 mg 24 hr tabletIndicatio ns:hypertension Take 1 tablet (100 mg total) by mouth 1 (one) time each day. Do not crush or chew. Active alendronate (FOSAMAX) 70 mg tablet Take 1 tablet (70 mg total) by mouth every 7 (seven) days. Active rosuvastatin (CRESTOR) 10 mg tablet Take 1 tablet (10 mg total) by mouth 1 (one) time each day. Active fluticasone-karolina meterol (ADVAIR DISKUS) 250-50 mcg/dose diskus inhaler Inhale 1 puff by mouth 2 (two) times a day. 1 each 11 025 2025 Active albuterol HFA (PROAIR HFA ; PROVENTIL HFA ; VENTOLIN HFA) 90 mcg/actuation inhaler Inhale 2 puffs by mouth every 6 (six) hours if needed for wheezing. 6.7 g 3 025 2025 Active losartan (COZAAR) 25 mg tablet Take 1 tablet (25 mg total) by mouth 1 (one) time each day. Active pioglitazone (ACTOS) 30 mg tablet Take 1 tablet (30 mg total) by mouth 1 (one) time each day. Active isosorbide mononitrate (IMDUR) 60 mg 24 hr tablet Take 1 tablet (60 mg total) by mouth 1 (one) time each day. Do not crush or chew. 30 each 025 2025 Active albuterol HFA (PROAIR HFA ; PROVENTIL HFA ; VENTOLIN HFA) 90 mcg/actuation inhaler Inhale 1-2 puffs by mouth every 6 (six) hours if needed for wheezing or shortness of breath (Cough). 023 2024 Discontinued amLODIPine (NORVASC) 5 mg tablet Take 1 tablet (5 mg total) by mouth 1 (one) time each day. 020 2024 Discontinued azelastine-flut icasone 137-50 mcg/spray spray,non-aeros ol Administer 1 spray into affected nostril(s) 2 (two) times a day. 017 2024 Discontinued budesonide (PULMICORT) 0.25 mg/2 mL nebulizer solution Inhale 2 mL (0.25 mg total) by mouth 1 (one) time each day. 024 2024 Discontinued calcium carbonate-vit D3-min 600 mg calcium- 400 unit tablet Take 1 tablet by mouth 2 (two) times a day. 015 2024 Discontinued denosumab (Prolia) 60 mg/mL syringe syringe Inject 1 mL (60 mg total) under the skin 1 (one) time. 022 2024 Discontinued fluticasone-karolina meterol (ADVAIR DISKUS) 250-50 mcg/dose diskus inhaler Inhale 1 puff by mouth. 2024 Discontinued(R eorder) fluticasone propionate (FLONASE) 50 mcg/actuation nasal spray Administer 2 sprays into affected nostril(s) 1 (one) time each day if needed for allergies. 019 2024 Discontinued hydrOXYzine HCL (ATARAX) 25 mg tablet Take 1 tablet (25 mg total) by mouth 3 times daily as needed. 2024 Discontinued isosorbide mononitrate (IMDUR) 30 mg 24 hr tablet Take 1 tablet (30 mg total) by mouth 1 (one) time each day. 020 2024 Discontinued(S top Taking at Discharge) montelukast (SINGULAIR) 10 mg tablet Take 1 tablet (10 mg total) by mouth at bedtime. 020 2024 Discontinued ipratropium (ATROVENT) 0.02 % nebulizer solutionIndicat ions:COPD exacerbation (CMS/HCC V24, CMS/HCC V28) Take 2.5 mL (0.5 mg total) by nebulization 4 (four) times a day. 75 mL 025 2024 Discontinued Jardiance 10 mg tablet Take 1 tablet (10 mg total) by mouth 1 (one) time each day. 024 2024 Discontinued benzonatate (TESSALON) 200 mg capsule Take 1 capsule (200 mg total) by mouth 3 (three) times a day if needed for cough. Do not crush or chew. 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 Govea on November 2024 Diabetes mellitus type 2 wit h neurological manifestations ([facility] V24, [facility] V28) 05/03/2017 Hyperlipidemia 05/03/2017 Hypertension 05/03/2017 Allergic rhinitis 04/25/2017 Asthma-COPD overlap syndrome ([facility] V24, [facility]/ [facility] V28) 04/25/2017 Overview (04/03/2024): Last Assessment & Plan: [...] unspecified organism, unspecified acute renal failure type ([facility] V24, [facility] V28) 09/04/2024 09/06/2024 Encounters Date Type Department Care Team Description 10/30/2024 5:00 PM EDT - 10/31/2024 11:43 AM EDT Hospital Encounter [facility] Emergency [address] [place] [address] Mark Woodard MD Sondhi, Vikram, MD Jones, Christopher, MD Santoyo-Pachec o, Omar D, MD Chest pain at rest (Primary Dx) Discharge Disposition: Home-Health Care [facility] [address] [phone] Rio Diaz [place] Fitting for DME ([employer]) 10/22/2024 11:30 AM EDT [facility] [address] [phone] Fco Parsons MD Asthma-COPD overlap syndrome ([facility] V24, [facility] V28) (Primary Dx); PAKO (mycobacterium avium-intracellulare) ([facility] V24, [facility] V28) 09/04/2024 8:45 AM EST - 09/06/2024 12:42 PM [facility] [address] [place] [address] Osmany Oquendo MD Bukalo, Nermina, MD Zipagan, James T, MD Sepsis with acute renal failure without septic shock, due to unspecified organism, unspecified acute renal failure type ([facility] V24, [facility] V28) (Primary Dx) Discharge Disposition: Home-Health Care [facility] 08/28/2024 5:53 PM EST - 08/29/2024 1:35 AM [facility] Emergency [address] [place] [address] COPD exacerbation ([facility] V24, [facility] V28) (Primary Dx) Discharge Disposition: Home or Self Care 08/27/2024 2:00 AM EST - 08/27/2024 3:33 AM [facility] Emergency [address] [place] [phone] Marshall Smith MD Pneumonia of right middle [...] mellitus type 2 wit h neurological manifestations ([facility]/HCC V24, CMS/HCC V28) 05/03/2017 DX:Diabetes mellitus type 2 with neurological manifestations ([facility]) Hyperlipidemia 05/03/2017 DX:Hyperlipidemi a Hypertension 05/03/2017 DX:Hypertension [...] Mass Index 23.91 10/30/2024 3:01 PM EDT Plan of Treatment Upcoming Encounters Date Type Department Care Team (Late st Contact Info) Description 12/03/2024 1:30 PM EDT Office Visit Infectious Disease - [place] [address] [phone] Natalie Govea MD [address] [phone] 05/08/2025 10:45 AM EDT Office Visit Pulmonolgy - [place] [address] [phone] Fco Parsons MD [address] [phone] Health Maintenance Due Date Last Done Comments [...] 06/05/2019 COVID-19 Vaccine ( - season) 2024 Breast Cancer Screening 04/04/2024 07/11/20 19, 07/01/2019, 06/28/2018 Cholesterol Screening (Lipid Panel) 06/05/2024 06/05/2019 Diabetes: Blood Sugar Control Test (HGBA1C) 03/04/2025 09/04/2024, 06/05/2019, 06/05/2019 Influenza Vaccine (Season Ended) 2025 05/03/2017, 05/29/2015 Falls Risk Assessment 09/06/2025 09/06/2024 Diabetes: Annual GFR (Glomerular Filtration Rate) 10/31/2025 10/31/2024, 10/30/2024, 09/05/2024, Additional history exists Hypertension/CHF/CAD Annual BMP Blood Test 10/31/2025 10/31/2024, 10/30/2024, 09/05/2024, Additional history exists Pneumococcal Vaccine: 50+ Years Completed 05/03/2017, 05/01/2015 [...] age to complete this topic Meningococcal B Vaccine Aged Out No l onger eligible based on patient's age to complete [...] HIGH SENSITIVITY STAT 10/30/2024 5:12 PM EDT C-REACTIVE PROTEIN STAT Add-on 10/30/2024 3: 09 PM EDT CBC WITH AUTO DIFFERENTIAL STAT 10/30/2024 3:09 PM EDT B-TYPE NATRIURETIC PEPTIDE STAT 10/30/2024 3:09 PM EDT MAGNESIUM STAT 10/30/2024 3:09 PM EDT LIPASE STAT 10/30/2024 3:09 PM EDT COMPREHENSIVE METABOLIC PANEL STAT 10/30/2024 3:09 PM EDT CBC AND DIFFERENTIAL STAT 10/30/2024 3:09 PM EDT TROPONIN I HIGH SENSITIVITY STAT 10/30/2024 3:09 PM EDT ECG 12-LEAD STAT 10/30/2024 2:57 PM EDT ECG ANNOTATED 09/07/2024 POCT GLUCOSE BLOOD Routine [...] ECG 12-LEAD STAT 09/04/2024 8:56 AM EST [place] [facility] 30-74 MINUTES Routine 09/04/2024 8:41 [...] Relevant to Health Maintenance Results * ECG-Annotated (11/01/2024) Only the most recent of5 resultswithin the time period is included. us Provider Onbase ECG ORDERABLES Final Result * Troponin I high sensitivity (10/31/2024 8:48 AM EDT) Only the most recent of9 resultswithin the time period is included. High Sensitivity Troponin I 6 <=54 ng/L LAB CHEMISTRY METHOD 10/31/2024 9:33 AM EDT [facility] Blood Venous blood specimen / Unknown Venipuncture / Unknown 10/31/2024 8:48 AM EDT 10/31/2024 8:55 AM EDT Narrative [facility] - 10/31/2024 9:33 AM EDT High levels of biotin in samples may falsely decrease hsTroponin values. ??Use caution when interpreting hsTroponin results in patients taking biotin who exhibit renal impairment (eGFR <60) or in patients taking more than 20 mg/day of biotin. Vineet Mcclellan MD LAB BLOOD ORDERABLES F inal Result Performing Organization Address City/[facility]/ZIP Co de Phone Number [facility] [address] [place] [address], * (ABNORMAL) POCT Glucose, blood (10/31/2024 7:30 AM EDT) Only the most recent of13 resultswithin the time period is included. [facility] Glucose POCT 116(H) 70 - 100 mg/dL 10/31/2024 7:31 AM EDT [facility] Blood Capillary blood specimen / Unknown 10/31/2024 7:30 AM EDT 10/31/2024 7:32 AM EDT us Vineet Mcclellan MD LAB POINT OF C ARE TEST DOCKED DEVICE UNSOLICITED RESULTS Final Result Performing Organization Address [facility]/ZIP Co de Phone Number [facility] [address] [place] [address], [place] [phone] * (ABNORMAL) Complete blood count (10/31/2024 5:20 AM EDT) Only the most recent of2 resultswithin the time period is included. [facility] WBC 7.5 4.8 - 10.8 K/mcL LAB HEMETOLOGY METHOD 10/31/2024 6:24 AM EDT [facility] RBC 4.50 3.80 - 4.80 M/mcL LAB HEMETOLOGY METHOD 10/31/2024 6:24 AM EDT [facility] Hemoglobin 11.4(L) 11.5 - 16.0 g/dL LAB HEMETOLOGY METHOD 10/31/2024 6:24 AM EDT [facility] Hematocrit 36.3 35.0 - 47.0 % LAB HEMETOLOGY METHOD 10/31/2024 6:24 AM EDT [facility] MCV 80.1 79.0 - 98.0 FL LAB HEMETOLOGY METHOD 10/31/2024 6:24 AM EDT [facility] MCH 25.2(L) 27.0 - 32.0 pcg LAB HEMETOLOGY METHOD 10/31/2024 6:24 AM EDT [facility] MCHC 31.4(L) 32.0 - 37.0 g/dL LAB HEMETOLOGY METHOD 10/31/2024 6:24 AM EDT [facility] RDW 13.5 11.0 - 15.0 % LAB HEMETOLOGY METHOD 10/31/2024 6:24 AM EDT [facility] Platelets 274 130 - 400 K/mcL LAB HEMETOLOGY METHOD 10/31/2024 6:24 AM EDT [facility] MPV 9.9 7.0 - 11.0 FL LAB HEMETOLOGY METHOD 10/31/2024 6:24 AM EDT [facility] NRBC 0.0 <1.0 % LAB HEMETOLOGY METHOD 10/31/2024 6:24 AM EDT [facility] NRBC Absolute 0.00 <0.10 K/mcL LAB HEMETOLOGY METHOD 10/31/2024 6:24 AM T [facility] Blood Venous blood specimen / Unknown Venipuncture / Unknown 10/31/2024 5:20 AM EDT 10/31/2024 5:54 AM EDT us Rodger De La O MD LAB BLOOD ORDERABLES Final Resu lt [facility] [address] [place] [address], * (ABNORMAL) Basic metabolic panel (10/31/2024 5:20 AM EDT) Only the most recent of3 resultswithin the time period is included. Sodium 138 133 - 145 mmol/L LAB CHEMISTRY METHOD 10/31/2024 6:43 AM [facility] Potassium 4.2 3.5 - 5.5 mmol/L LAB CHEMISTRY METHOD 10/31/2024 6:43 AM [facility] Chloride 104 96 - 110 mmol/L LAB CHEMISTRY METHOD 10/31/2024 6:43 AM [facility] CO2 33(H) 21 - 32 mmol/L LAB CHEMISTRY METHOD 10/31/2024 6:43 AM [facility] Anion Gap 1(L) 3 - 11 LAB CHEMISTRY METHOD 10/31/2024 6:43 AM [facility] Glucose 106(H) 70 - 100 mg/dL LAB CHEMISTRY METHOD 10/31/2024 6:43 AM [facility] BUN 25 5 - 25 mg/dL LAB CHEMISTRY METHOD 10/31/2024 6:43 AM [facility] Creatinine 0.84 0.50 - 1.10 mg/dL LAB CHEMISTRY METHOD 10/31/2024 6:43 AM [facility] eGFR 68 >=60 mL/min/1. 73m2 LAB CHEMISTRY METHOD 10/31/2024 6:43 AM [facility] Comment:Calculation based on the??Chronic Kidney Disease Epidemiology Collaboration (CKD-EPI) equation refit??without adjustment for race. BUN/Creatinine Ratio 29.8 LAB CHEMISTRY METHOD 10/31/2024 6:43 AM [facility] Calcium 9.6 8.5 - 10.5 mg/dL LAB CHEMISTRY METHOD 10/31/2024 6:43 AM [facility] Blood Venous blood specimen / Unknown Venipuncture / Unknown 10/31/2024 5:20 AM EDT 10/31/2024 5:55 AM EDT us Rodger De La O MD LAB BLOOD ORDERABLES Final Resu lt [facility] [address] [place] [address], [place] [phone] * XR Chest 2 Views (10/30/2024 6:13 PM EDT) Only the most recent of3 resultswithin the time period is included. Anatomical [...] Signed Date: 10/31/2024 11:27 ET Workstation ID: [id number] Transcribed By: Self Edit Transcribed Date: 10/31/2024 [...] Signed Date: 10/31/2024 11:27 ET Workstation ID: [id number] Transcribed By: Self Edit Transcribed Date: 10/31/2024 11:27 ET Mark Woodard MD IMG XR PROCEDURES Final Result * ECG 12 lead (10/30/2024 6:04 PM EDT) Only the most recent of7 resultswithin the time period is included. [facility] Ventricular Rate ECG 79 BPM GEMUSE Atrial Rate 79 BPM GEMUSE P-R Interval 182 ms GEMUSE QRS Duration 122 ms GEMUSE Q-T Interval 382 ms GEMUSE QTc 438 ms GEMUSE P Wave [place] 70 degrees GEMUSE R [place] 57 degrees GEMUSE T [place] 60 degrees GEMUSE ECG Interpretation Normal sinus rhythm Right bundle branch block Abnormal ECG When compared with ECG of 30-OCT-2024 14:57, No significant change was found Confirmed by MD Edgardo, [facility] ([id number][facility] on 11/01/2024 1:06:52 AM GEMUSE 10/30/2024 6:04 PM EDT 11/01/2024 1:06 AM EDT us Mark Woodard MD ECG ORDERABLES Final Result GEMUSE * (ABNORMAL) CBC auto differential (10/30/2024 3:09 PM EDT) Only the most recent of5 resultswithin the time period is included. [facility] WBC 10.7 4.8 - 10.8 K/mcL LAB HEMETOLOGY METHOD 10/30/2024 3:29 PM EDT [facility] RBC 4.70 3.80 - 4.80 M/mcL LAB HEMETOLOGY METHOD 10/30/2024 3:29 PM EDT [facility] Hemoglobin 12.0 11.5 - 16.0 g/dL LAB HEMETOLOGY METHOD 10/30/2024 3:29 PM EDT [facility] Hematocrit 38.3 35.0 - 47.0 % LAB HEMETOLOGY METHOD 10/30/2024 3:29 PM EDT [facility] MCV 81.0 79.0 - 98.0 FL LAB HEMETOLOGY METHOD 10/30/2024 3:29 PM EDT [facility] MCH 25.4(L) 27.0 - 32.0 pcg LAB HEMETOLOGY METHOD 10/30/2024 3:29 PM [facility] MCHC 31.3(L) 32.0 - 37.0 g/dL LAB HEMETOLOGY METHOD 10/30/2024 3:29 PM [facility] RDW 13.3 11.0 - 15.0 % LAB HEMETOLOGY METHOD 10/30/2024 3:29 PM [facility] Platelets 293 130 - 400 K/mcL LAB HEMETOLOGY METHOD 10/30/2024 3:29 PM [facility] MPV 10.0 7.0 - 11.0 FL LAB HEMETOLOGY METHOD 10/30/2024 3:29 PM [facility] NRBC 0.0 <1.0 % LAB HEMETOLOGY METHOD 10/30/2024 3:29 PM [facility] NRBC Absolute 0.00 <0.10 K/mcL LAB HEMETOLOGY METHOD 10/30/2024 3:29 PM [facility] Neutrophils Relative 68.1 % LAB HEMETOLOGY METHOD 10/30/2024 3:29 PM [facility] Lymphocytes Relative 22.9 % LAB HEMETOLOGY METHOD 10/30/2024 3:29 PM [facility] Monocytes Relative 7.2 % LAB HEMETOLOGY METHOD 10/30/2024 3:29 PM [facility] Eosinophils Relative 0.7 % LAB HEMETOLOGY METHOD 10/30/2024 3:29 PM [facility] Basophils Relative 0.5 % LAB HEMETOLOGY METHOD 10/30/2024 3:29 PM [facility] Immature Granulocytes Relative 0.6 % LAB HEMETOLOGY METHOD 10/30/2024 3:29 PM [facility] Neutrophils Absolute 7.27(H) 1.50 - 7.00 K/mcL LAB HEMETOLOGY METHOD 10/30/2024 3:29 PM EDT [facility] Lymphocytes Absolute 2.44 1.00 - 5.00 K/mcL LAB HEMETOLOGY METHOD 10/30/2024 3:29 PM EDT [facility] Monocytes Absolute 0.77 0.20 - 1.00 K/mcL LAB HEMETOLOGY METHOD 10/30/2024 3:29 PM EDT [facility] Eosinophils Absolute 0.08 0.00 - 0.50 K/mcL LAB HEMETOLOGY METHOD 10/30/2024 3:29 PM EDT [facility] Basophils Absolute 0.05 0.00 - 0.20 K/mcL LAB HEMETOLOGY METHOD 10/30/2024 3:29 PM EDT [facility] Immature Granulocytes Absolute 0.06(H) 0.00 - 0.03 K/mcL LAB HEMETOLOGY METHOD 10/30/2024 3:29 PM EDT [facility] Blood Venous blood specimen / Unknown Venipuncture / Unknown 10/30/2024 3:09 PM EDT 10/30/2024 3:19 PM EDT us Mark Woodard MD LAB BLOOD ORDERABLES Final Resu lt [facility] [address] [place] [address], * C-reactive protein (10/30/2024 3:09 PM EDT) C-Reactive Protein <0.29 <=0.50 mg/dL LAB CHEMISTRY METHOD 10/30/2024 8:44 PM EDT [facility] Blood Venous blood specimen / Unknown Venipuncture / Unknown 10/30/2024 3:09 PM EDT 10/30/2024 3:19 PM EDT us Eliseo Lacy MD LAB BLOOD ORDERABLES Final Result Performing Organization Address [facility] Co de Phone Number [facility] [address] [place] [address], [place] [phone] * B-type natriuretic peptide (10/30/2024 3:09 PM EDT) Only the most recent of4 resultswithin the time period is included. BNP 60 <=100 pcg/mL LAB CHEMISTRY METHOD 10/30/2024 4:44 PM EDT [facility] Blood Venous blood specimen / Unknown Venipuncture / Unknown 10/30/2024 3:09 PM EDT 10/30/2024 3:19 PM EDT Mark Woodard MD LAB BLOOD ORDERABLES Final Resu lt Performing Organization Address [facility] de Phone Number [facility] [address] [place] [address], [place] [phone] * (ABNORMAL) Magnesium (10/30/2024 3:09 PM EDT) Only the most recent of3 resultswithin the time period is included. Magnesium 1.7(L) 1.9 - 2.6 mg/dL LAB CHEMISTRY METHOD 10/30/2024 4:24 PM EDT [facility] Blood Venous blood specimen / Unknown Venipuncture / Unknown 10/30/2024 3:09 PM EDT 10/30/2024 3:19 PM EDT us Mark Woodard MD LAB BLOOD ORDERABLES Final Resu lt Performing Organization Address [facility] Co de Phone Number [facility] [address] [place] [address], [place] [phone] * (ABNORMAL) Lipase (10/30/2024 3:09 PM EDT) Only the most recent of3 resultswithin the time period is included. Lipase 80(H) 13 - 75 unit/L LAB CHEMISTRY METHOD 10/30/2024 4:40 PM T [facility] Blood Venous blood specimen / Unknown Venipuncture / Unknown 10/30/2024 3:09 PM EDT 10/30/2024 3:19 PM EDT us Mark Woodard MD LAB BLOOD ORDERABLES Final Resu lt [facility] [address] [place] [address], [place] [phone] * (ABNORMAL) Comprehensive metabolic panel (10/30/2024 3:09 PM EDT) Only the most recent of3 resultswithin the time period is included. Pathologist [facility] Sodium 135 133 - 145 mmol/L LAB CHEMISTRY METHOD 10/30/2024 4:40 PM [facility] Potassium 4.6 3.5 - 5.5 mmol/L LAB CHEMISTRY METHOD 10/30/2024 4:40 PM [facility] Chloride 100 96 - 110 mmol/L LAB CHEMISTRY METHOD 10/30/2024 4:40 PM [facility] CO2 30 21 - 32 mmol/L LAB CHEMISTRY METHOD 10/30/2024 4:40 PM [facility] Anion Gap 5 3 - 11 LAB CHEMISTRY METHOD 10/30/2024 4:40 PM [facility] Glucose 160(H) 70 - 100 mg/dL LAB CHEMISTRY METHOD 10/30/2024 4:40 PM [facility] BUN 26(H) 5 - 25 mg/dL LAB CHEMISTRY METHOD 10/30/2024 4:40 PM [facility] Creatinine 0.99 0.50 - 1.10 mg/dL LAB CHEMISTRY METHOD 10/30/2024 4:40 PM [facility] eGFR 56(L) >=60 mL/min/1. 73m2 LAB CHEMISTRY METHOD 10/30/2024 4:40 PM [facility] Comment:Calculation based on the??Chronic Kidney Disease Epidemiology Collaboration (CKD-EPI) equation refit??without adjustment for race. BUN/Creatinine Ratio 26.3 LAB CHEMISTRY METHOD 10/30/2024 4:40 PM [facility] Calcium 10.0 8.5 - 10.5 mg/dL LAB CHEMISTRY METHOD 10/30/2024 4:40 PM [facility] AST (SGOT) 6(L) 10 - 42 unit/L LAB CHEMISTRY METHOD 10/30/2024 4:40 PM [facility] ALT (SGPT) 15 10 - 60 unit/L LAB CHEMISTRY METHOD 10/30/2024 4:40 PM [facility] Alkaline Phosphatase 82 42 - 121 unit/L LAB CHEMISTRY METHOD 10/30/2024 4:40 PM [facility] Total Protein 7.6 6.0 - 8.0 g/dL LAB CHEMISTRY METHOD 10/30/2024 4:40 PM [facility] Albumin 3.9 3.2 - 5.0 g/dL LAB CHEMISTRY METHOD 10/30/2024 4:40 PM [facility] Total Bilirubin 0.3 0.0 - 1.4 mg/dL LAB CHEMISTRY METHOD 10/30/2024 4:40 PM [facility] Blood Venous blood specimen / Unknown Venipuncture / Unknown 10/30/2024 3:09 PM EDT 10/30/2024 3:19 PM EDT us Mark Woodard MD LAB BLOOD ORDERABLES Final Resu lt [facility] [address] [place] [address], [place] [phone] * SST tube (09/06/2024 6:52 AM EST) Pathologist [facility] Extra Tube Hold for add-ons. 09/06/2024 9:01 AM EST [facility] Comment:Auto resulted. Blood Venous blood specimen / Unknown Venipuncture / Unknown 09/06/2024 6:52 AM EST 09/06/2024 7:29 AM EST us John Cope MD LAB BLOOD ORDERABLES Final Re sult Performing Organization Address City/[facility]/ZIP Co de Phone Number [facility] [address] [place] [address], [place] [phone] * Activated Partial Thromboplastin Time - STAT (09/05/2024 12:31 PM EST) Pathologist [facility] aPTT 24.1 24.1 - 39.3 sec LAB COAGULATION METHOD 09/05/2024 12:56 PM EST [facility] Blood Venous blood specimen / Unknown Venipuncture / Unknown 09/05/2024 12:31 PM EST 09/05/2024 12:42 PM EST us John Cope MD LAB BLOOD ORDERABLES Final Re sult [facility] [address] [place] [address], [place] [phone] * Prothrombin Time with INR - STAT (09/05/2024 12:31 PM EST) Pathologist [facility] Protime 12.3 10.6 - 13.9 sec LAB COAGULATION METHOD 09/05/2024 12:56 PM [facility] INR 1.0 LAB COAGULATION METHOD 09/05/2024 12:56 PM [facility] Blood Venous blood specimen / Unknown Venipuncture / Unknown 09/05/2024 12:31 PM EST 09/05/2024 12:42 PM EST John Cope MD LAB BLOOD ORDERABLES Final Re sult [facility] [address] [place] [address], [place] [phone] * Hepatic Function Panel - STAT (09/05/2024 12:31 PM EST) Total Protein 6.9 6.0 - 8.0 g/dL LAB CHEMISTRY METHOD 09/05/2024 1:20 PM EST [facility] Albumin 3.5 3.2 - 5.0 g/dL LAB CHEMISTRY METHOD 09/05/2024 1:20 PM [facility] Total Bilirubin 0.8 0.0 - 1.4 mg/dL LAB CHEMISTRY METHOD 09/05/2024 1:20 PM [facility] Bilirubin, Direct 0.2 0.0 - 0.3 mg/dL LAB CHEMISTRY METHOD 09/05/2024 1:20 PM EST [facility] Bilirubin, Indirect 0.6 0.0 - 1.1 mg/dL LAB CHEMISTRY METHOD 09/05/2024 1:20 PM [facility] ALT (SGPT) 21 10 - 60 unit/L LAB CHEMISTRY METHOD 09/05/2024 1:20 PM [facility] AST (SGOT) 13 10 - 42 unit/L LAB CHEMISTRY METHOD 09/05/2024 1:20 PM [facility] Alkaline Phosphatase 67 42 - 121 unit/L LAB CHEMISTRY METHOD 09/05/2024 1:20 PM [facility] Blood Venous blood specimen / Unknown Venipuncture / Unknown 09/05/2024 12:31 PM EST 09/05/2024 12:42 PM EST John Cope MD LAB BLOOD ORDERABLES Final Re sult Performing Organization Address [facility]/ZIP Co de Phone Number [facility] [address] [place] [address], [place] [phone] * Lactate (09/05/2024 6:38 AM EST) Only the most recent of3 resultswithin the time period is included. Lactate 1.5 0.4 - 2.0 mmol/L LAB CHEMISTRY METHOD 09/05/2024 7:19 AM EST [facility] Blood Venous blood specimen / Unknown Venipuncture / Unknown 09/05/2024 6:38 AM EST 09/05/2024 6:47 AM EST Andres GARCIA LAB BLOOD ORDERABLES Final Res ult Performing Organization Address [facility] Co de Phone Number [facility] [address] [place] [address], * Legionella antigen urine, EIA (09/04/2024 12:28 PM EST) Legionella Antigen, Ur Negative Negative 09/04/2024 2:21 PM EST [facility] Urine Urine specimen from urethra / Unknown Non-blood Collection / Unknown 09/04/2024 12:28 PM EST 09/04/2024 12:42 PM EST Narrative [facility] - 09/04/2024 2:21 PM EST Negative for Legionella pneumophilia serogroup 1 antigen. This presumptive result suggests no current or recent infection due to L. pneumophilia serogroup 1. Culture is recommended if Legionella infection is till suspected, as other serogroups and species of Legionella are not detected by this test. Laron Maldonado MD LAB URINE ORDERABLES Final Res ult Performing Organization Address [facility]/ZIP Co de Phone Number [facility] [address] [place] [address], * Streptococcus pneumoniae antibodies, IgG, 23 serotypes (09/04/2024 11:55 AM EST) [facility] Serotype 1 (1) 1.1 >=1.0 mcg/mL [...] Interpretation SEE BELOW 09/10/2024 3:22 PM EST [facility] Comment: Overall interpretation of pneumococcal antibody [...] developed and its performance characteristics determined by [facility] in a manner consistent with CLIA requirements. This test has not been cleared or approved by the U.S. Food and Drug Administration. Test Performed by: [facility] [address] [place] [address] Flaker Tender: Iris Ruiz Ph.D.; CLIA# [id number] Blood Venous blood specimen / Unknown Venipuncture / Unknown 09/04/2024 11:55 AM EST 09/04/2024 12:00 PM EST us Laron Maldonado MD LAB BLOOD ORDERABLES Final Res ult [facility] [address] [place] [address] * CT Chest wo Contrast (09/04/2024 9:19 [...] Signed Date: 09/04/2024 09:41 ET Workstation ID: [id number] Transcribed By: Self Edit Transcribed Date: 09/04/2024 [...] Signed Date: 09/04/2024 09:41 ET Workstation ID: [id number] Transcribed By: Self Edit Transcribed Date: 09/04/2024 09:37 ET [facility] Britni Oquendo MD IMG CT PROCEDURES Final Result * Blood Culture, Peripheral Draw #2 (09/04/2024 9:10 AM EST) Only the most recent of2 resultswithin the time period is included. [facility] Culture, Blood No growth at 5 days 09/09/2024 10:01 AM EST [facility] Blood Venous blood specimen / Unknown Venipuncture / Unknown 09/04/2024 9:10 AM EST 09/04/2024 9:21 AM EST Osmany Oquendo MD LAB MICROBIOLOGY - [facility] Final Result [facility] [address] [place] [address], [place] [phone] * (ABNORMAL) Hemoglobin A1c (09/04/2024 9:10 AM EST) [facility] Hemoglobin A1C 8.5(H) <6.5 % LAB CHEMISTRY METHOD 09/04/2024 5:11 PM [facility] Mean Bld Glu Estim. 197 mg/dL LAB CHEMISTRY METHOD 09/04/2024 5:11 PM [facility] Blood Venous blood specimen / Unknown Venipuncture / Unknown 09/04/2024 9:10 AM EST 09/04/2024 9:26 AM EST Laron Maldonado MD LAB BLOOD ORDERABLES Final Res ult [facility] [address] [place] [address], [place] [phone] * Respiratory virus panel molecular study (09/04/2024 9:02 AM EST) Only the most recent of3 resultswithin the time period is included. [facility] Adenovirus Detection by PCR Not Detected Not Detected LAB MICROBIOLOGY METHOD 09/04/2024 10:45 AM EST [facility] Influenza A PCR Not Detected Not Detected LAB MICROBIOLOGY METHOD 09/04/2024 10:45 AM [facility] Influenza B PCR Not Detected Not Detected LAB MICROBIOLOGY METHOD 09/04/2024 10:45 AM [facility] Coronavirus 229E Not Detected Not Detected LAB MICROBIOLOGY METHOD 09/04/2024 10:45 AM [facility] Coronavirus HKU1 Not Detected Not Detected LAB MICROBIOLOGY METHOD 09/04/2024 10:45 AM [facility] Coronavirus OC43 Not Detected Not Detected LAB MICROBIOLOGY METHOD 09/04/2024 10:45 AM [facility] Coronavirus NL63 Not Detected Not Detected LAB MICROBIOLOGY METHOD 09/04/2024 10:45 AM [facility] Parainfluenza Virus 1 Not Detected Not Detected LAB MICROBIOLOGY METHOD 09/04/2024 10:45 AM [facility] Parainfluenza Virus 2 Not Detected Not Detected LAB MICROBIOLOGY METHOD 09/04/2024 10:45 AM [facility] Parainfluenza Virus 3 Not Detected Not Detected LAB MICROBIOLOGY METHOD 09/04/2024 10:45 AM [facility] Parainfluenza Virus 4 Not Detected Not Detected LAB MICROBIOLOGY METHOD 09/04/2024 10:45 AM [facility] RSV PCR Not Detected Not Detected LAB MICROBIOLOGY METHOD 09/04/2024 10:45 AM [facility] Human Metapneumovirus A and B Not Detected Not Detected LAB MICROBIOLOGY METHOD 09/04/2024 10:45 AM [facility] Rhinovirus/Entero virus Not Detected Not Detected LAB MICROBIOLOGY METHOD 09/04/2024 10:45 AM [facility] Bordetella pertussis Not Detected Not Detected LAB MICROBIOLOGY METHOD 09/04/2024 10:45 AM [facility] Bordetella parapertussis Not Detected Not Detected LAB MICROBIOLOGY METHOD 09/04/2024 10:45 AM EST [facility] Mycoplasma pneumo by PCR Not Detected Not Detected LAB MICROBIOLOGY METHOD 09/04/2024 10:45 AM EST [facility] Chlamydia pneumoniae Not Detected Not Detected LAB MICROBIOLOGY METHOD 09/04/2024 10:45 AM EST [facility] SARS COV-2 Not Detected Not Detected LAB MICROBIOLOGY METHOD 09/04/2024 10:45 AM EST [facility] Swab Nasopharyngeal structure / Unknown Non-blood Collection / Unknown 09/04/2024 9:02 AM EST 09/04/2024 9:26 AM EST [facility] - 09/04/2024 10:45 AM EST Testing was performed using the [employer] Respiratory Pathogen PCR Assay. All results must [...] Osmany Oquendo MD LAB MICROBIOLOGY - [facility] Final Result [facility] [address] [place] [address], * [place] CRITICAL CARE 30-74 MINUTES (09/04/2024 8:41 AM [...] meets criteria for sepsis with endorgan damage. us Osmany Oquendo MD IN CLINIC/BEDSIDE ORDERABLES Fi nal Result * DOMINIC SCREENING DIGITAL (07/01/2019 4:51 PM EST) Anatomical Region Laterality Modality Mammography 07/01/2019 12:3 0 PM EST Narrative 07/01/2019 4:51 PM EST [facility] Diagnostic Imaging Department [address] [place], [place] [id number] Patient: ??KRISTIN VALDIVIA ?/Age/Sex: 1940 - 78 - F Unit#: ??[id number] ? Location/Status: ??SPDIMAM/REG CLI ? Mnemonic/Ordering Site: ??DIGSC/SPMAM Ordering Physician: ??GRISELDA VELAZQUEZ MD Dominic Screening Digital - 07/01/19 - 1317 INDICATION: SCREENING COMPARISON: No prior studies are available for comparison. TECHNIQUE: CC and MLO views of the breasts were obtained, using full field digital mammography with 3D tomosynthesis views in the MLO projection. Computer aided detection with the Rewarder.2-WebKite was employed. Patient reports 2 sisters with [...] date for the next mammogram. (G0202 / [id number]) , ??[id number] Dictating Physician: ??BRODY SMITH MD Electronically Signed by: ??BRODY SMITH MD Dic Date/Time: ??07/01/19 1646 Sign date/Time: ??07/01/19 1651 Procedure Note Brody Smith - 07/13/2022 [facility] Diagnostic Imaging Department [address] [place] [address] [id number] Patient: KRISTIN VALDIVIA /Age/Sex: 1940 - 78 - F Unit#: [id number] Location/Status: SPDIMAM/REG CLI Mnemonic/Ordering Site: [facility] Ordering Physician: GRISELDA VELAZQUEZ MD Dominic Screening Digital - 07/01/19 - 1316 INDICATION: SCREENING COMPARISON: No prior studies are available for comparison. TECHNIQUE: CC and MLO views of the breasts were obtained, using full field digital mammography with 3D tomosynthesis views in the MLO projection. Computer aided detection with the REES46 7.2-H was employed. Patient reports 2 sisters [...] a target date for the next mammogram. 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 Do not modify or discontinue any currently active code status orders. * Full Code - Default Date Activated Date Inactivated Comments 10/30/2024 6:46 PM 10/30/2024 11:28 PM This is order is used when code status has not been discussed with the patient, or code status is otherwise unknown/unconfirmed To update the patient's code status, place a code status order. Do not modify or discontinue any currently active code status orders. Healthcare Agents on File Name Relationship Healthcare Agent [facility] Communication Liz Townsendquez Daughter Health Care Agent Care Teams Marker Shipments Relationship Specialty Start Date End Date Pam Montoya MD [address] [place] [address] , [address] [facility]ician [facility] D/B/A: [facility] MERYL Braga PCP - General Internal Medicine 10/30/24
== END 2024-11-04 10:43 | disposition home or self-care (01) ==
LOC: HO.ENCR 10:15
PROVIDERS: PCP Internal Medicine; Visit Provider Internal Medicine Endocrinology, Diabetes & Metabolism
DX: M81.0 Age-related osteoporosis without current pathological fracture (principal)
CPT/HCPCS: 99213

== ENCOUNTER → 2024-11-04 10:13 | Outpatient (BNVA) | payer MEDICARE, OTHER, MEDICAID, SELFPAY | PROVIDERS: PCP Internal Medicine; Visit Provider Internal Medicine Endocrinology, Diabetes & Metabolism | DX: M81.0 Age-related osteoporosis without current pathological fracture (principal) | CPT/HCPCS: 99212 ==

== ENCOUNTER 2024-11-07 09:23 | Outpatient (AMB) | payer MEDICARE, OTHER, MEDICAID, SELFPAY ==
[2024-11-07 10:05] VITALS: BP 136/60; PULSE 88; O2SAT 96; BMI 23.9
--- NOTE | 2024-11-07 10:05 | MHC.PC.OV ---
Vital Signs 11/07/24 10:05 Height 5 ft 2.8 in Weight 134 lb BMI 23.9 BP 136/60 Blood Pressure Location Lt brachial Position Sitting Pulse 88 Pulse Source Pulse Oximeter Pulse Oximetry (%) 96 Oxygen Delivery Method Room Air Intake Visit Reasons: Jacey 10/31 high Bp/ dm Chair Trimmer Required: No Accompanied by: Daughter Allergies amlodipine Adverse Reaction (Intermediate, Verified 11/07/24 10:12) leg edema empagliflozin [From Jardiance] Adverse Reaction (Verified 11/07/24 10:12) vaginal candidiasis Medication List - Last Reconciled 11/07/24 by Pam Montoya MD [adult diapers As directed] albuterol sulfate 90 mcg/actuation 2 puffs inhalation Q4-6H PRN 30 days alendronate 70 mg PO QWEEK apixaban (Eliquis) 5 mg PO BID 90 days blood sugar diagnostic TEST 3 TIMES DAILY blood-glucose meter (Cloudmach Ultra2 Meter) As directed- TID cane As directed cholecalciferol (vitamin D3) 25 mcg PO DAILY 90 days commode (bedside commode) As directed dulaglutide (Trulicity) 1.5 mg (0.5 mL) subcut QWEEK 90 days fluticasone propion-salmeterol 100-50 mcg/dose (Wixela Inhub) 1 inh inhalation BID gabapentin 200 mg (2 x 100 mg) PO BEDTIME 90 days isosorbide mononitrate ER 30 mg PO DAILY 90 days levalbuterol tartrate 45 mcg/actuation (Xopenex HFA) 2 puffs inhalation Q4-6H PRN losartan 25 mg PO DAILY 90 days magnesium oxide 400 mg PO DAILY 90 days metformin 1,000 mg PO BID 90 days metoprolol succinate ER 100 mg PO DAILY 90 days omeprazole 20 mg PO DAILY 90 days [One touch Ultra Blue test strips Use 3 times a day] pioglitazone 30 mg PO DAILY 90 days rosuvastatin 10 mg PO DAILY 90 days tizanidine 2 mg PO Q8H PRN 30 days underpads (Certainty Underpads) Use 1 to 2 times a day walker with brakes and seat Tobacco use date assessed: 10/16/24 Dental Screening Dental Screen Date: 10/16/24 HPI HPI Comments History of Present Illness Details The patient is an 84-year-old female presenting with issues related to osteoporosis and diabetes management. She is currently receiving endocrine care for osteoporosis, having been prescribed alendronate and has noted concerns about bone health impacts due to pioglitazone, which she has been advised to discontinue. Her diabetes management has been challenging; hemoglobin A1c levels last recorded at 9.1% indicate suboptimal control. She experiences blood sugar fluctuations, which may correlate to recent viral infection episodes. Treatment adjustments include an increased dose of Trulicity while managing her condition with metformin use. 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 An appointment with pulmonology was last attended in October. The patient?s cardiovascular health is maintained with Losartan and Eliquis. She reports medication allergies to amlodipine and Jardiance. [facility] Medical History (Updated 11/07/24 @ 10:31 by Pam Montoya MD) COPD (chronic obstructive pulmonary disease) Left shoulder pain Hyperlipidemia LDL goal <100 Abnormal SPEP Vitamin D deficiency Osteoporosis Age related osteoporosis Physical exam Hypomagnesemia Atrial fibrillation with rapid ventricular response Urinary incontinence Abnormal EKG Screening for osteoporosis Neuropathy Microalbuminuria JONNY (obstructive sleep apnea) Left shoulder pain Anemia GERD (gastroesophageal reflux disease) Coronary artery disease Hypertension Type 2 diabetes mellitus with hyperglycemia Surgical History History of surgery on arm Hx of dilation and curettage Hx of breast biopsy Family History Mother Diabetes mellitus Father No problems noted. Sister Lymphoma Breast cancer Brother Colon cancer Social History Household Members: Family Housing: House Are you a primary career representative to a significant other at home: No Do you presently have visiting nurse or other home services: Yes (insurance nurse) Alcohol intake: never Patient Tobacco Use Status: Never used Tobacco e-Cigarette/Vaping Use: Never Used Second Hand Smoke Exposure: No service: No Current occupational status: disabled Cognitive needs: No Hearing needs: No Vision needs: Yes Questionnaire Thrive Questionnaire Date Thrive assessed: 10/16/24 LINDSAY-7 AMB Questionnaire LINDSAY-7 Date LINDSAY - 7 assessed: 10/16/24 Source: Developed by Drs. Jayro L. SocoTara olivo, Bryant Reno and colleagues, with an educational adore from [employer]. Review of Systems Const All systems reviewed & are unremarkable except as noted in HPI and below Card Denies chest pain at rest, Denies chest pain with activity, Denies edema, Denies irregular heart rhythm, Denies claudication, Denies dyspnea, Denies dyspnea on exertion, Denies orthopnea, Denies paroxysmal nocturnal dyspnea and Denies slow heart rate Resp Denies cough, Denies dyspnea and Denies dyspnea on exertion Physical exam (Primary Care) Vital Signs: Last Vital Signs Pulse 88 11/07/24 10:05 BP 136/60 11/07/24 10:05 Pulse Ox 96 11/07/24 10:05 Oxygen Delivery Method Room Air 11/07/24 10:05 BMI result Body Mass Index 23.9 Tobacco/Smoking Status: Tobacco use Status Tobacco use date assessed 10/16/24 11/07/24 10:09 Patient Tobacco Use Status Never used Tobacco 11/07/24 10:09 e-Cigarette/Vaping Use Never Used 11/07/24 10:09 Thrive Assessment: Date of Thrive Assessment Date Thrive assessed 10/16/24 11/07/24 10:09 Resp Effort & Inspection: normal respiratory effort Auscultation: clear to auscultation bilaterally Cardio Jugular venous distension: no JVD Rate: regular rate Rhythm: regular rhythm Heart sounds: S1 normal heart sound present and S2 normal heart sound present Extrem General: Yes full ROM Coding Level of Care Code Est Pt Level 4 (27729) Complex EM visit Add On G2211 Diagnoses Type 2 diabetes mellitus with hyperglycemia, without long-term current use of insulin E11.65 Diabetes mellitus [facility] insulin use: without exterminator termite use Mycobacterial infection, 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 Hyperlipidemia LDL goal <70 E78.5 PAF (paroxysmal atrial fibrillation) I48.0 Asthma-COPD overlap syndrome J44.89 Time Spent (min) 23 Assessment & Plan Assessment & Plan (1) Type 2 diabetes mellitus with hyperglycemia: Code(s): E11.65 - Type 2 diabetes mellitus with hyperglycemia Category: Medical Qualifiers: Diabetes mellitus exterminator termite insulin use: without [facility] use Qualified Code(s): E11.65 - Type 2 diabetes mellitus with hyperglycemia (2) Mycobacterial infection, 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: Comment: Decline Infectious disease treatment Code(s): A31.9 - Mycobacterial infection, unspecified Category: Medical (3) Hyperlipidemia LDL goal <70: Code(s): E78.5 - Hyperlipidemia, unspecified Category: Medical (4) Hyperlipidemia LDL goal <70: Code(s): E78.5 - Hyperlipidemia, unspecified Category: Medical (5) PAF (paroxysmal atrial fibrillation): Code(s): I48.0 - Paroxysmal atrial fibrillation Category: Medical (6) Asthma-COPD overlap syndrome: Code(s): J44.89 - Other specified chronic obstructive pulmonary disease Category: Medical Plan Referral to endocrinology for focused diabetes management, aim to stabilize her condition. Her condition of osteoporosis continues under endocrinology care. For respiratory issues, management includes Wexela, and follow-ups are planned with pulmonary services. Losartan continues for hypertension, with Eliquis addressing atrial fibrillation. The patient is advised to maintain current appointments and medications unless otherwise instructed.: Patient was informed and verbally consented to the use of an ambient scribe for clinic note documentation during this visit. Today, we discussed the removal of pioglitazone due to potential adverse effects on her bone health and the increase in her Trulicity dose to address high blood glucose levels, confirmed through recent lab work showing a hemoglobin A1c of 9.1%. Counseling was provided on the necessity for consistent diabetes management, and I initiated a referral for endocrinology focused on diabetes. I reiterated adherence to her prescribed medications for respiratory and cardiac conditions while providing education on recognizing symptoms warranting medical attention. Regular monitoring will ensure adjustment of therapy according to future assessments, and plans for follow-up were made accordingly. Orders: Referrals Endocrinology Referral E11.65 - Type 2 diabetes mellitus with hyperglycemia Medications: New dulaglutide (Trulicity) 3 mg (0.5 mL) subcut QWEEK 6.5 mL 3RF 90 days E11.65 - Type 2 diabetes mellitus with hyperglycemia Discontinued pioglitazone Discontinued Reason: Patient Completed Course 30 mg PO DAILY 90 days 90 tabs 1RF dulaglutide (Trulicity) Discontinued Reason: Patient Completed Course 1.5 mg (0.5 mL) subcut QWEEK 90 days 6.5 mL 1RF Patient Instructions: - Continue taking Losartan and Eliquis as prescribed. - Take new Trulicity dose as instructed, check with pharmacy for schedule. - Avoid altering medication dosages without consultations. - Attend scheduled appointments with cardiology and pending endocrinology consultations. - Monitor blood sugar levels and report significant changes. - Maintain the current asthma/COPD management plan. - Follow up on respiratory appointments as scheduled. - Alert healthcare provider if experiencing adverse symptoms or new health issues.
--- OUTSIDE RECORDS SUMMARY | 2024-11-07 10:37 | XMS_ITS | Clinical Summary ---
Author Organization [facility]. Address [address] [address] Phone Care Team Providers Care Help Desk Assistant Name Role Phone Pam Wills MD Primary Care Provider [phone] Allergies No known active allergies Medications amLODIPine [...] Office Visit [facility] [address] [place] [address] Jaylon Barreto MD Stage 3a chronic kidney [...] Office Visit [facility] [address] [facility] [address] [place] [address] Jaylon Barreto MD [address] [phone] Health Maintenance Due Date Last Done Comments [...] Recently Relevant to Health Maintenance Insurance [facility] Medicare [employer] Medicare Care Teams Help Desk Assistant Relationship Specialty Start Date End Date Pam Wills MD [address] [place] [address] PCP - General Internal Medicine 05/11/21
--- OUTSIDE RECORDS SUMMARY | 2024-11-07 10:37 | XMS_ITS | Clinical Summary ---
Author Organization [employer] [facility] Address [address] [place] [address] Care Team Providers Care Manager Bilingual Name Role Phone Pam Wills MD Primary [...] age to complete this topic Care Teams Manager Bilingual Relationship Specialty Start Date End Date Pam Wills MD [address] [facility] [address], [address] [facility] D/B/A: [facility] MERYL Braga [id number] PCP - General Internal Medicine 02/02/22
--- OUTSIDE RECORDS SUMMARY | 2024-11-07 10:37 | XMS_ITS | Clinical Summary ---
Author Organization 175 [facility] Address [address] [place] [address] Phone Care Team Providers Care Puppy Trainer Name Role Phone Pam Montyoa MD Primary Care Provider [phone] Allergies No known active allergies Medications magnesium [...] (one) time each day. 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 Govea on November 2024 Diabetes mellitus type 2 wit h neurological manifestations ([facility] V24, [facility] V28) 05/03/2017 Hyperlipidemia 05/03/2017 Hypertension 05/03/2017 Allergic rhinitis 04/25/2017 Asthma-COPD overlap syndrome ([facility] V24, [facility] V28) 04/25/2017 Overview (04/03/2024): Last Assessment [...] unspecified organism, unspecified acute renal failure type ([facility] V24, [facility] V28) 09/04/2024 09/06/2024 Encounters Date Type Department Care Team Description 10/30/2024 5:00 PM EDT - 10/31/2024 11:43 AM EDT Hospital Encounter [facility] Emergency [address] [place] [address] Mark Woodard MD Sondhi, Vikram, MD Jones, Christopher, MD Santoyo-Pachec o, Omar D, MD Chest pain at rest (Primary Dx) Discharge Disposition: [place] [facility] [place]20[facility] [address] [address] Rio Diaz [place] Fitting for DME ([employer]) 10/22/2024 11:30 AM EDT [facility] [address] [address] Fco Parsons MD Asthma-COPD overlap syndrome ([facility] V24, [facility] V28) (Primary Dx); PAKO (mycobacterium avium-intracellulare) ([facility] V24, [facility] V28) 09/04/2024 8:45 AM EST - 09/06/2024 12:42 PM [facility] [address] [place] [phone] Osmany Oquendo MD Bukalo, Nermina, MD Zipagan, James T, MD Sepsis with acute renal failure without septic shock, due to unspecified organism, unspecified acute renal failure type ([facility] V24, [facility] V28) (Primary Dx) Discharge Disposition: [place] [facility] 08/28/2024 5:53 PM EST - 08/29/2024 1:35 AM [facility] Emergency [address] [place] [phone] COPD exacerbation ([facility] V24, [facility] V28) (Primary Dx) Discharge Disposition: Home or Self Care 08/27/2024 2:00 AM EST - 08/27/2024 3:33 AM [facility] Emergency [address] [place] [phone] Marshall Smith MD Pneumonia of right middle [...] mellitus type 2 wit h neurological manifestations (CMS/HCC V24, CMS/HCC V28) 05/03/2017 DX:Diabetes mellitus type 2 with neurological manifestations ([facility]) Hyperlipidemia 05/03/2017 DX:Hyperlipidemi a Hypertension 05/03/2017 DX:Hypertension [...] Care Team (Late st Contact Info) Description 11/15/2024 1:00 PM EDT Ancillary Procedure [facility] [address] [place] [address] 12/03/2024 1:30 PM EDT Office Visit Infectious Disease - [place] 175 [facility] [address] [place] [address] Natalie Govea MD [address] [address] 05/08/2025 10:45 AM EDT Office Visit Pulmonolgy - [place] 175 [facility] [address] [place] [address] Fco Parsons MD [address] [address] Health Maintenance Due Date Last Done Comments [...] ECG 12-LEAD STAT 09/04/2024 8:56 AM EST MD CRITICAL CARE 30-74 MINUTES Routine 09/04/2024 8:41 [...] LAB CHEMISTRY METHOD 10/31/2024 9:33 AM EDT [facility] Blood Venous blood specimen / Unknown Venipuncture / Unknown 10/31/2024 8:48 AM EDT 10/31/2024 8:55 AM EDT Narrative [facility] - 10/31/2024 9:33 AM EDT High levels of biotin in samples may falsely decrease hsTroponin values. ??Use caution when interpreting hsTroponin results in patients taking biotin who exhibit renal impairment (eGFR <60) or in patients taking more than 20 mg/day of biotin. us Vineet Mcclellan MD LAB BLOOD ORDERABLES F inal Result [facility] [address] [place] [address], [place] [phone] * (ABNORMAL) POCT Glucose, blood (10/31/2024 7:30 AM EDT) Only the most recent of13 resultswithin the time period is included. Pathologist [facility] Glucose POCT 116(H) 70 - 100 mg/dL 10/31/2024 7:31 AM EDT [facility] Blood Capillary blood specimen / Unknown 10/31/2024 7:30 AM EDT 10/31/2024 7:32 AM EDT us Vineet Mcclellan MD LAB POINT OF C ARE TEST DOCKED DEVICE UNSOLICITED RESULTS Final Result Performing Organization Address [facility]/ZIP Co de Phone Number [facility] [address] [place] [address], [place] [phone] * (ABNORMAL) Complete blood count (10/31/2024 5:20 AM EDT) Only the most recent of2 resultswithin the time period is included. [facility] WBC 7.5 4.8 - 10.8 K/mcL LAB HEMETOLOGY METHOD 10/31/2024 6:24 AM EDT [facility] RBC 4.50 3.80 - 4.80 M/mcL LAB HEMETOLOGY METHOD 10/31/2024 6:24 AM EDT [facility] Hemoglobin 11.4(L) 11.5 - 16.0 g/dL LAB HEMETOLOGY METHOD 10/31/2024 6:24 AM EDT [facility] Hematocrit 36.3 35.0 - 47.0 % LAB HEMETOLOGY METHOD 10/31/2024 6:24 AM EDT [facility] MCV 80.1 79.0 - 98.0 FL LAB HEMETOLOGY METHOD 10/31/2024 6:24 AM EDT [facility] MCH 25.2(L) 27.0 - 32.0 pcg LAB HEMETOLOGY METHOD 10/31/2024 6:24 AM EDT [facility] MCHC 31.4(L) 32.0 - 37.0 g/dL LAB HEMETOLOGY METHOD 10/31/2024 6:24 AM EDT [facility] RDW 13.5 11.0 - 15.0 % LAB HEMETOLOGY METHOD 10/31/2024 6:24 AM EDT [facility] Platelets 274 130 - 400 K/mcL LAB HEMETOLOGY METHOD 10/31/2024 6:24 AM EDT [facility] MPV 9.9 7.0 - 11.0 FL LAB HEMETOLOGY METHOD 10/31/2024 6:24 AM EDT [facility] NRBC 0.0 <1.0 % LAB HEMETOLOGY METHOD 10/31/2024 6:24 AM EDT [facility] NRBC Absolute 0.00 <0.10 K/mcL LAB HEMETOLOGY METHOD 10/31/2024 6:24 AM [facility] Blood Venous blood specimen / Unknown Venipuncture / Unknown 10/31/2024 5:20 AM EDT 10/31/2024 5:54 AM EDT us Rodger De La O MD LAB BLOOD ORDERABLES Final Resu lt [facility] [address] [place] [address], * (ABNORMAL) Basic metabolic panel (10/31/2024 5:20 AM EDT) Only the most recent of3 resultswithin the time period is included. Sodium 138 133 - 145 mmol/L LAB CHEMISTRY METHOD 10/31/2024 6:43 AM EDT [facility] Potassium 4.2 3.5 - 5.5 mmol/L LAB CHEMISTRY METHOD 10/31/2024 6:43 AM [facility] Chloride 104 96 - 110 mmol/L LAB CHEMISTRY METHOD 10/31/2024 6:43 AM [facility] CO2 33(H) 21 - 32 mmol/L LAB CHEMISTRY METHOD 10/31/2024 6:43 AM [facility] Anion Gap 1(L) 3 - 11 LAB CHEMISTRY METHOD 10/31/2024 6:43 AM [facility] Glucose 106(H) 70 - 100 mg/dL LAB CHEMISTRY METHOD 10/31/2024 6:43 AM [facility] BUN 25 5 - 25 mg/dL LAB CHEMISTRY METHOD 10/31/2024 6:43 AM [facility] Creatinine 0.84 0.50 - 1.10 mg/dL LAB CHEMISTRY METHOD 10/31/2024 6:43 AM [facility] eGFR 68 >=60 mL/min/1. 73m2 LAB CHEMISTRY METHOD 10/31/2024 6:43 AM [facility] Comment:Calculation based on the??Chronic Kidney Disease Epidemiology Collaboration (CKD-EPI) equation refit??without adjustment for race. BUN/Creatinine Ratio 29.8 LAB CHEMISTRY METHOD 10/31/2024 6:43 AM [facility] Calcium 9.6 8.5 - 10.5 mg/dL LAB CHEMISTRY METHOD 10/31/2024 6:43 AM [facility] Blood Venous blood specimen / Unknown Venipuncture / Unknown 10/31/2024 5:20 AM EDT 10/31/2024 5:55 AM EDT us Rodger De La O MD LAB BLOOD ORDERABLES Final Resu lt [facility] [address] [place] [address], [place] [phone] * XR Chest 2 Views (10/30/2024 6:13 [...] Signed Date: 10/31/2024 11:27 ET Workstation ID: [id number] Transcribed By: Self Edit Transcribed Date: 10/31/2024 [...] Signed Date: 10/31/2024 11:27 ET Workstation ID: [id number] Transcribed By: Self Edit Transcribed Date: 10/31/2024 11:27 ET Mark Woodard MD IMG XR PROCEDURES Final Result * ECG 12 lead (10/30/2024 6:04 PM EDT) Only the most recent of7 resultswithin the time period is included. Ventricular Rate ECG 79 BPM GEMUSE Atrial Rate 79 BPM GEMUSE P-R Interval 182 ms GEMUSE QRS Duration 122 ms GEMUSE Q-T Interval 382 ms GEMUSE QTc 438 ms GEMUSE P Wave Burgin 70 degrees GEMUSE R Burgin 57 degrees GEMUSE T Burgin 60 degrees GEMUSE ECG Interpretation Normal sinus rhythm Right bundle branch block Abnormal ECG When compared with ECG of 30-OCT-2024 14:57, No significant change was found Confirmed by MD Edgardo, Eliseo ([id number]) on 11/01/2024 1:06:52 AM GEMUSE 10/30/2024 6:04 PM EDT 11/01/2024 1:06 AM EDT Mark Woodard MD ECG ORDERABLES Final Result GEMUSE * (ABNORMAL) CBC auto differential (10/30/2024 3:09 PM EDT) Only the most recent of5 resultswithin the time period is included. Pathologist [facility] WBC 10.7 4.8 - 10.8 K/mcL LAB HEMETOLOGY METHOD 10/30/2024 3:29 PM EDT [facility] RBC 4.70 3.80 - 4.80 M/mcL LAB HEMETOLOGY METHOD 10/30/2024 3:29 PM EDT [facility] Hemoglobin 12.0 11.5 - 16.0 g/dL LAB HEMETOLOGY METHOD 10/30/2024 3:29 PM EDT [facility] Hematocrit 38.3 35.0 - 47.0 % LAB HEMETOLOGY METHOD 10/30/2024 3:29 PM EDT [facility] MCV 81.0 79.0 - 98.0 FL LAB HEMETOLOGY METHOD 10/30/2024 3:29 PM EDT [facility] MCH 25.4(L) 27.0 - 32.0 pcg LAB HEMETOLOGY METHOD 10/30/2024 3:29 PM [facility] MCHC 31.3(L) 32.0 - 37.0 g/dL LAB HEMETOLOGY METHOD 10/30/2024 3:29 PM [facility] RDW 13.3 11.0 - 15.0 % LAB HEMETOLOGY METHOD 10/30/2024 3:29 PM [facility] Platelets 293 130 - 400 K/mcL LAB HEMETOLOGY METHOD 10/30/2024 3:29 PM [facility] MPV 10.0 7.0 - 11.0 FL LAB HEMETOLOGY METHOD 10/30/2024 3:29 PM [facility] NRBC 0.0 <1.0 % LAB HEMETOLOGY METHOD 10/30/2024 3:29 PM [facility] NRBC Absolute 0.00 <0.10 K/mcL LAB HEMETOLOGY METHOD 10/30/2024 3:29 PM [facility] Neutrophils Relative 68.1 % LAB HEMETOLOGY METHOD 10/30/2024 3:29 PM [facility] Lymphocytes Relative 22.9 % LAB HEMETOLOGY METHOD 10/30/2024 3:29 PM [facility] Monocytes Relative 7.2 % LAB HEMETOLOGY METHOD 10/30/2024 3:29 PM [facility] Eosinophils Relative 0.7 % LAB HEMETOLOGY METHOD 10/30/2024 3:29 PM [facility] Basophils Relative 0.5 % LAB HEMETOLOGY METHOD 10/30/2024 3:29 PM [facility] Immature Granulocytes Relative 0.6 % LAB HEMETOLOGY METHOD 10/30/2024 3:29 PM [facility] Neutrophils Absolute 7.27(H) 1.50 - 7.00 K/mcL LAB HEMETOLOGY METHOD 10/30/2024 3:29 PM EDT [facility] Lymphocytes Absolute 2.44 1.00 - 5.00 K/mcL LAB HEMETOLOGY METHOD 10/30/2024 3:29 PM EDT [facility] Monocytes Absolute 0.77 0.20 - 1.00 K/mcL LAB HEMETOLOGY METHOD 10/30/2024 3:29 PM EDT [facility] Eosinophils Absolute 0.08 0.00 - 0.50 K/[facility] LAB HEMETOLOGY METHOD 10/30/2024 3:29 PM EDT [facility] Basophils Absolute 0.05 0.00 - 0.20 K/mcL LAB HEMETOLOGY METHOD 10/30/2024 3:29 PM EDT [facility] Immature Granulocytes Absolute 0.06(H) 0.00 - 0.03 K/[facility] LAB HEMETOLOGY METHOD 10/30/2024 3:29 PM EDT [facility] Blood Venous blood specimen / Unknown Venipuncture / Unknown 10/30/2024 3:09 PM EDT 10/30/2024 3:19 PM EDT Mark Woodard MD LAB BLOOD ORDERABLES Final Resu lt [facility] [address] [place] [address], * C-reactive protein (10/30/2024 3:09 PM EDT) C-Reactive Protein <0.29 <=0.50 mg/dL LAB CHEMISTRY METHOD 10/30/2024 8:44 PM EDT [facility] Blood Venous blood specimen / Unknown Venipuncture / Unknown 10/30/2024 3:09 PM EDT 10/30/2024 3:19 PM EDT Eliseo Lacy MD LAB BLOOD ORDERABLES Final Result Performing Organization Address [facility] de Phone Number [facility] [address] [place] [address], [place] [phone] * B-type natriuretic peptide (10/30/2024 3:09 PM EDT) Only the most recent of4 resultswithin the time period is included. BNP 60 <=100 pcg/mL LAB CHEMISTRY METHOD 10/30/2024 4:44 PM EDT [facility] Blood Venous blood specimen / Unknown Venipuncture / Unknown 10/30/2024 3:09 PM EDT 10/30/2024 3:19 PM EDT Mark Woodard MD LAB BLOOD ORDERABLES Final Resu lt Performing Organization Address [facility] de Phone Number [facility] [address] [place] [address], [place] [phone] * (ABNORMAL) Magnesium (10/30/2024 3:09 PM EDT) Only the most recent of3 resultswithin the time period is included. Magnesium 1.7(L) 1.9 - 2.6 mg/dL LAB CHEMISTRY METHOD 10/30/2024 4:24 PM EDT [facility] Blood Venous blood specimen / Unknown Venipuncture / Unknown 10/30/2024 3:09 PM EDT 10/30/2024 3:19 PM EDT us Mark Woodard MD LAB BLOOD ORDERABLES Final Resu lt Performing Organization Address [facility]/ZIP Co de Phone Number [facility] [address] [place] [address], [place] [phone] * (ABNORMAL) Lipase (10/30/2024 3:09 PM EDT) Only the most recent of3 resultswithin the time period is included. Lipase 80(H) 13 - 75 unit/L LAB CHEMISTRY METHOD 10/30/2024 4:40 PM [facility] Blood Venous blood specimen / Unknown Venipuncture / Unknown 10/30/2024 3:09 PM EDT 10/30/2024 3:19 PM EDT us Mark Woodard MD LAB BLOOD ORDERABLES Final Resu lt [facility] [address] [place] [address], * (ABNORMAL) Comprehensive metabolic panel (10/30/2024 3:09 PM EDT) Only the most recent of3 resultswithin the time period is included. Sodium 135 133 - 145 mmol/L LAB CHEMISTRY METHOD 10/30/2024 4:40 PM [facility] Potassium 4.6 3.5 - 5.5 mmol/L LAB CHEMISTRY METHOD 10/30/2024 4:40 PM [facility] Chloride 100 96 - 110 mmol/L LAB CHEMISTRY METHOD 10/30/2024 4:40 PM [facility] CO2 30 21 - 32 mmol/L LAB CHEMISTRY METHOD 10/30/2024 4:40 PM [facility] Anion Gap 5 3 - 11 LAB CHEMISTRY METHOD 10/30/2024 4:40 PM [facility] Glucose 160(H) 70 - 100 mg/dL LAB CHEMISTRY METHOD 10/30/2024 4:40 PM [facility] BUN 26(H) 5 - 25 mg/dL LAB CHEMISTRY METHOD 10/30/2024 4:40 PM [facility] Creatinine 0.99 0.50 - 1.10 mg/dL LAB CHEMISTRY METHOD 10/30/2024 4:40 PM [facility] eGFR 56(L) >=60 mL/min/1. 73m2 LAB CHEMISTRY METHOD 10/30/2024 4:40 PM [facility] Comment:Calculation based on the??Chronic Kidney Disease Epidemiology Collaboration (CKD-EPI) equation refit??without adjustment for race. BUN/Creatinine Ratio 26.3 LAB CHEMISTRY METHOD 10/30/2024 4:40 PM T [facility] Calcium 10.0 8.5 - 10.5 mg/dL LAB CHEMISTRY METHOD 10/30/2024 4:40 PM [facility] AST (SGOT) 6(L) 10 - 42 unit/L LAB CHEMISTRY METHOD 10/30/2024 4:40 PM [facility] ALT (SGPT) 15 10 - 60 unit/L LAB CHEMISTRY METHOD 10/30/2024 4:40 PM [facility] Alkaline Phosphatase 82 42 - 121 unit/L LAB CHEMISTRY METHOD 10/30/2024 4:40 PM [facility] Total Protein 7.6 6.0 - 8.0 g/dL LAB CHEMISTRY METHOD 10/30/2024 4:40 PM [facility] Albumin 3.9 3.2 - 5.0 g/dL LAB CHEMISTRY METHOD 10/30/2024 4:40 PM [facility] Total Bilirubin 0.3 0.0 - 1.4 mg/dL LAB CHEMISTRY METHOD 10/30/2024 4:40 PM [facility] Blood Venous blood specimen / Unknown Venipuncture / Unknown 10/30/2024 3:09 PM EDT 10/30/2024 3:19 PM EDT us Mark Woodard MD LAB BLOOD ORDERABLES Final Resu lt [facility] [address] [place] [address], [place] [phone] * SST tube (09/06/2024 6:52 AM EST) Extra Tube Hold for add-ons. 09/06/2024 9:01 AM EST [facility] Comment:Auto resulted. Blood Venous blood specimen / Unknown Venipuncture / Unknown 09/06/2024 6:52 AM EST 09/06/2024 7:29 AM EST us John Cope MD LAB BLOOD ORDERABLES Final Re sult [facility] [address] [place] [address], [place] [phone] * Activated Partial Thromboplastin Time - STAT (09/05/2024 12:31 PM EST) Pathologist [facility] aPTT 24.1 24.1 - 39.3 sec LAB COAGULATION METHOD 09/05/2024 12:56 PM EST [facility] Blood Venous blood specimen / Unknown Venipuncture / Unknown 09/05/2024 12:31 PM EST 09/05/2024 12:42 PM EST us John Cope MD LAB BLOOD ORDERABLES Final Re sult [facility] [address] [place] [address], [place] [phone] * Prothrombin Time with INR - STAT (09/05/2024 12:31 PM EST) Protime 12.3 10.6 - 13.9 sec LAB COAGULATION METHOD 09/05/2024 12:56 PM [facility] INR 1.0 LAB COAGULATION METHOD 09/05/2024 12:56 PM [facility] Blood Venous blood specimen / Unknown Venipuncture / Unknown 09/05/2024 12:31 PM EST 09/05/2024 12:42 PM EST us John Cope MD LAB BLOOD ORDERABLES Final Re sult Performing Organization Address [facility]/ZIP Co de Phone Number [facility] [address] [place] [address], [place] [phone] * Hepatic Function Panel - STAT (09/05/2024 12:31 PM EST) Total Protein 6.9 6.0 - 8.0 g/dL LAB CHEMISTRY METHOD 09/05/2024 1:20 PM EST [facility] Albumin 3.5 3.2 - 5.0 g/dL LAB CHEMISTRY METHOD 09/05/2024 1:20 PM EST [facility] Total Bilirubin 0.8 0.0 - 1.4 mg/dL LAB CHEMISTRY METHOD 09/05/2024 1:20 PM EST [facility] Bilirubin, Direct 0.2 0.0 - 0.3 mg/dL LAB CHEMISTRY METHOD 09/05/2024 1:20 PM EST [facility] Bilirubin, Indirect 0.6 0.0 - 1.1 mg/dL LAB CHEMISTRY METHOD 09/05/2024 1:20 PM EST [facility] ALT (SGPT) 21 10 - 60 unit/L LAB CHEMISTRY METHOD 09/05/2024 1:20 PM [facility] AST (SGOT) 13 10 - 42 unit/L LAB CHEMISTRY METHOD 09/05/2024 1:20 PM EST [facility] Alkaline Phosphatase 67 42 - 121 unit/L LAB CHEMISTRY METHOD 09/05/2024 1:20 PM [facility] Blood Venous blood specimen / Unknown Venipuncture / Unknown 09/05/2024 12:31 PM EST 09/05/2024 12:42 PM EST John Cope MD LAB BLOOD ORDERABLES Final Re sult Performing Organization Address City/[facility]/ZIP Co de Phone Number [facility] [address] [place] [address], * Lactate (09/05/2024 6:38 AM EST) Only the most recent of3 resultswithin the time period is included. Lactate 1.5 0.4 - 2.0 mmol/L LAB CHEMISTRY METHOD 09/05/2024 7:19 AM EST [facility] Blood Venous blood specimen / Unknown Venipuncture / Unknown 09/05/2024 6:38 AM EST 09/05/2024 6:47 AM EST Andres GARCIA LAB BLOOD ORDERABLES Final Res ult Performing Organization Address [facility] de Phone Number [facility] [address] [place] [address], * Legionella antigen urine, EIA (09/04/2024 12:28 PM EST) Legionella Antigen, Ur Negative Negative 09/04/2024 2:21 PM EST [facility] Urine Urine specimen from urethra / Unknown Non-blood Collection / Unknown 09/04/2024 12:28 PM EST 09/04/2024 12:42 PM EST Narrative [facility] - 09/04/2024 2:21 PM [...] ORDERABLES Final Res ult Performing Organization Address [facility] Co de Phone Number [facility] [address] [place] [address], * Streptococcus pneumoniae antibodies, IgG, 23 serotypes (09/04/2024 11:55 AM EST) [facility] Serotype 1 (1) 1.1 >=1.0 mcg/mL [...] developed and its performance characteristics determined by [facility] in a manner consistent with CLIA requirements. This test has not been cleared or approved by the U.S. Food and Drug Administration. Test Performed by: [facility] [address] [place] [address] Laborer [employer]ip[employer]: Iris Ruiz Ph.D.; CLIA# [id number] Blood Venous blood specimen / Unknown Venipuncture / Unknown 09/04/2024 11:55 AM EST 09/04/2024 12:00 PM EST us Laron Maldonado MD LAB BLOOD ORDERABLES Final Res ult MIKAEL LACKEY [address] [place] [address] * CT Chest wo Contrast (09/04/2024 9:19 [...] Signed Date: 09/04/2024 09:41 ET Workstation ID: [id number] Transcribed By: Self Edit Transcribed Date: 09/04/2024 [...] Signed Date: 09/04/2024 09:41 ET Workstation ID: [id number] Transcribed By: Self Edit Transcribed Date: 09/04/2024 09:37 ET [facility] B Jere [facility] CT PROCEDURES Final Result * Blood Culture, Peripheral Draw #2 (09/04/2024 9:10 AM EST) Only the most recent of2 resultswithin the time period is included. [facility] Culture, Blood No growth at 5 days 09/09/2024 10:01 AM EST [facility] Blood Venous blood specimen / Unknown Venipuncture / Unknown 09/04/2024 9:10 AM EST 09/04/2024 9:21 AM EST Osmany Oquendo MD LAB MICROBIOLOGY - GENERAL [facility] Final Result Performing Organization Address City/[facility]/ZIP Co de Phone Number [facility] [address] [place] [address], [place] [phone] * (ABNORMAL) Hemoglobin A1c (09/04/2024 9:10 AM EST) [facility] Hemoglobin A1C 8.5(H) <6.5 % LAB CHEMISTRY METHOD 09/04/2024 5:11 PM EST [facility] Mean Bld Glu Estim. 197 mg/dL LAB CHEMISTRY METHOD 09/04/2024 5:11 PM [facility] Blood Venous blood specimen / Unknown Venipuncture / Unknown 09/04/2024 9:10 AM EST 09/04/2024 9:26 AM EST Laron Maldonado MD LAB BLOOD ORDERABLES Final Res ult [facility] [address] [place] [address], [place] [phone] * Respiratory virus panel molecular study (09/04/2024 9:02 AM EST) Only the most recent of3 resultswithin the time period is included. [facility] Adenovirus Detection by PCR Not Detected Not Detected LAB MICROBIOLOGY METHOD 09/04/2024 10:45 AM EST [facility] Influenza A PCR Not Detected Not Detected LAB MICROBIOLOGY METHOD 09/04/2024 10:45 AM [facility] Influenza B PCR Not Detected Not Detected LAB MICROBIOLOGY METHOD 09/04/2024 10:45 AM [facility] Coronavirus 229E Not Detected Not Detected LAB MICROBIOLOGY METHOD 09/04/2024 10:45 AM [facility] Coronavirus HKU1 Not Detected Not Detected LAB MICROBIOLOGY METHOD 09/04/2024 10:45 AM [facility] Coronavirus OC43 Not Detected Not Detected LAB MICROBIOLOGY METHOD 09/04/2024 10:45 AM [facility] Coronavirus NL63 Not Detected Not Detected LAB MICROBIOLOGY METHOD 09/04/2024 10:45 AM [facility] Parainfluenza Virus 1 Not Detected Not Detected LAB MICROBIOLOGY METHOD 09/04/2024 10:45 AM [facility] Parainfluenza Virus 2 Not Detected Not Detected LAB MICROBIOLOGY METHOD 09/04/2024 10:45 AM [facility] Parainfluenza Virus 3 Not Detected Not Detected LAB MICROBIOLOGY METHOD 09/04/2024 10:45 AM [facility] Parainfluenza Virus 4 Not Detected Not Detected LAB MICROBIOLOGY METHOD 09/04/2024 10:45 AM [facility] RSV PCR Not Detected Not Detected LAB MICROBIOLOGY METHOD 09/04/2024 10:45 AM [facility] Human Metapneumovirus A and B Not Detected Not Detected LAB MICROBIOLOGY METHOD 09/04/2024 10:45 AM [facility] Rhinovirus/Entero virus Not Detected Not Detected LAB MICROBIOLOGY METHOD 09/04/2024 10:45 AM [facility] Bordetella pertussis Not Detected Not Detected LAB MICROBIOLOGY METHOD 09/04/2024 10:45 AM [facility] Bordetella parapertussis Not Detected Not Detected LAB MICROBIOLOGY METHOD 09/04/2024 10:45 AM [facility] Mycoplasma pneumo by PCR Not Detected Not Detected LAB MICROBIOLOGY METHOD 09/04/2024 10:45 AM EST [facility] Chlamydia pneumoniae Not Detected Not Detected LAB MICROBIOLOGY METHOD 09/04/2024 10:45 AM EST [facility] SARS COV-2 Not Detected Not Detected LAB MICROBIOLOGY METHOD 09/04/2024 10:45 AM EST [facility] Swab Nasopharyngeal structure / Unknown Non-blood Collection / Unknown 09/04/2024 9:02 AM EST 09/04/2024 9:26 AM EST Narrative [facility] - 09/04/2024 10:45 AM EST Testing was performed using the [employer] Respiratory Pathogen PCR Assay. All results must [...] that are below the limit of detection. us Osmany Oquendo MD LAB MICROBIOLOGY - GENERAL [facility] Final Result [facility] [address] [place] [address], * MD CRITICAL CARE 30-74 MINUTES (09/04/2024 8:41 AM [...] PM EST Narrative 07/01/2019 4:[address] [facility] Diagnostic Imaging Department [address] [place], [place] [id number] Patient: ??KRISTIN VALDIVIA ?/Age/Sex: 1940 - 78 - F Unit#: ??[id number] ? Location/Status: ??SPDIMAM/REG CLI ? Mnemonic/Ordering Site: ??DIGSC/SPMAM Ordering Physician: ??GRISELDA VELAZQUEZ MD Dominic Screening Digital - 07/01/19 - 1317 INDICATION: SCREENING COMPARISON: No prior studies are available for comparison. TECHNIQUE: CC and MLO views of the breasts were obtained, using full field digital mammography with 3D tomosynthesis views in the MLO projection. Computer aided detection with the [employer] was employed. Patient reports 2 sisters with [...] date for the next mammogram. ([id number] / [id number]) , ??[id number] Dictating Physician: ??BRODY SMITH MD Electronically Signed by: ??BRODY SMITH MD Dic Date/Time: ??07/01/19 1646 Sign date/Time: ??07/01/19 1651 Procedure Note Brody Smith - 07/13/2022 [facility] Diagnostic Imaging Department [address] [place] [id number] Patient: KRISTIN VALDIVIA/Age/Sex: 1940 - 78 - F Unit#: [id number] Location/Status: SPDIMAM/REG CLI Mnemonic/Ordering Site: [facility] Ordering Physician: GRISELDA VELAZQUEZ MD Dominic Screening Digital - 07/01/19 - 1317 INDICATION: SCREENING COMPARISON: No prior studies are available for comparison. TECHNIQUE: CC and MLO views of the breasts were obtained, using full field digital mammography with 3D tomosynthesis views in the MLO projection. Computer aided detection with the [employer] was employed. Patient reports 2 sisters [...] a target date for the next mammogram. [id number] / [id number]) , [id number] Dictating Physician: BRODY SMITH MD Electronically Signed by: BRODY SMITH MD Dic Date/Time: 07/01/19 1644 Sign date/Time: 07/01/19 1651 Griselda Velazquez MD [...] Insurance [employer] MEDICARE MEDICA[place] - [place] 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
--- OUTSIDE RECORDS SUMMARY | 2024-11-07 10:37 | XMS_ITS | Encounter Summary ---
Author Organization [facility] Address [address] [facility] [address] [place] [address] Phone Care Team Providers Care Farm Equipment Technician Name Role Phone Pam Wills MD Primary Care Provider [phone] Encounter Details Date Type Department Care Team (Late Contact Info) Description 08/03/2021 Documentation Only [facility] [address] [facility] [address] [place] [phone] Jaylon Barreto MD [address] [phone] Social History Tobacco Use Types [...] Visit [facility] [address] [address] Jaylon Barreto MD [address] [address] documented as of this encounter Visit Diagnoses Not on filedocumented in this encounter Care Teams Farm Equipment Technician Relationship Specialty Start Date End Date Pam Wills MD [address] [place], [place] PCP - General Internal Medicine 05/11/21 documented as of this encounter
== END 2024-11-07 10:25 | disposition home or self-care (01) ==
LOC: HO.HMCH 09:24
PROVIDERS: PCP Internal Medicine; Visit Provider Internal Medicine
DX: E78.5 Hyperlipidemia, unspecified (principal); E11.65 Type 2 diabetes mellitus with hyperglycemia; I48.0 Paroxysmal atrial fibrillation; J44.89 Other specified chronic obstructive pulmonary disease; A31.9 Mycobacterial infection, unspecified

== ENCOUNTER → 2024-11-07 09:23 | Outpatient (BNVA) | payer MEDICARE, OTHER, MEDICAID, SELFPAY | PROVIDERS: PCP Internal Medicine; Visit Provider Internal Medicine | DX: E11.65 Type 2 diabetes mellitus with hyperglycemia (principal); A31.9 Mycobacterial infection, unspecified; E78.5 Hyperlipidemia, unspecified; I48.0 Paroxysmal atrial fibrillation; J44.89 Other specified chronic obstructive pulmonary disease; Z79.01 Long term (current) use of anticoagulants; Z79.899 Other long term (current) drug therapy | CPT/HCPCS: 99212 ==

== ENCOUNTER 2024-11-15 07:29 | Outpatient (AMB) | payer MEDICARE, OTHER, MEDICAID, SELFPAY ==
--- NOTE | 2024-11-15 07:28 | A.OFFVIS_ITS ---
Vital Signs 11/15/24 07:35 Height 5 ft 2.8 in Weight 134 lb 4.184 oz BMI 23.9 BP 142/48 H Blood Pressure Location Lt brachial Position Sitting Pulse 101 H Pulse Source Pulse Oximeter Pulse Oximetry (%) 93 Oxygen Delivery Method Room Air Intake Visit Reasons: T2DM Intake Note: Patient present today for Type 2 Diabetes Mellitus Last Diabetic eye exam: 06/2024 Last Podiatry Visit: Doesn't have one Random Glucose: 155 mg/dl HgA1C: 9.1% 10/16/24 Food And Nutrition Teacher Required: Yes Food And Nutrition Teacher Language: Jumbo Operator Services: Food And Nutrition Teacher Present Food And Nutrition Teacher Name: Jin [id number] Information Interpreted: non-clinical & clinical Accompanied by: Daughter Allergies amlodipine Adverse Reaction (Intermediate, Verified 11/15/24 08:33) leg edema empagliflozin [From Jardiance] Adverse Reaction (Verified 11/15/24 08:33) vaginal candidiasis HPI Comments Details: 84 YO Female with PMHx Osteoporosis, DM2, CKD Stage 3, AFib on chronic AC with eliquis who is seen for diabetes consult. She is followed by Dr. Devine for osteoporosis. Was initially started on treatment with metformin. Was not controlled and she was started on Jardiance but had c/o vaginal itching from jardiance. Trulicity was started at 1.5mg and was increased to 3.0 mg weekly. She is having symptoms at the higher dose has little appetite and has lost 3 lb over the last month. Both the patient and daughter are asking if the Trulicity can be decreased back to 1.5 mg. Current regimen: Metformin 1000mg bid Trulicity 3.0 weekly. Checks sugars 3 times per day. am: 120's later in the day: 150-160's Reports low sugars:no lows Most recent A1C 9.1% on 10/16/2024, up from prior 7% on 06/06/2025. Family history of T2DM in mother. No retinopathy: Has eyes checked yearly, last eye exam 07/16, Dr. Dalton, has cataracts Has neuropathy, last foot exam today in the office, sees podiatry. On gabapentin Has nephropathy, on ARB. UA positive for protein EGFR 57 Has HLD, on statin. Last LDL 42 as measured on 09/2024. Has CAD and AFib with rapid response on Eliquis. Followed regularly by Cardiology Diet: Balanced but does get some concentrated sweets that the intermediate she is at NO recent diabetes education. [facility] Medical History (Updated 11/07/24 @ 10:31 by Pam Montoya MD) COPD (chronic obstructive pulmonary disease) Left shoulder pain Hyperlipidemia LDL goal <100 Abnormal SPEP Vitamin D deficiency Osteoporosis Age related osteoporosis Physical exam Hypomagnesemia Atrial fibrillation with rapid ventricular response Urinary incontinence Abnormal EKG Screening for osteoporosis Neuropathy Microalbuminuria JONNY (obstructive sleep apnea) Left shoulder pain Anemia GERD (gastroesophageal reflux disease) Coronary artery disease Hypertension Type 2 diabetes mellitus with hyperglycemia Surgical History History of surgery on arm Hx of dilation and curettage Hx of breast biopsy Family History Mother Diabetes mellitus Father No problems noted. Sister Lymphoma Breast cancer Brother Colon cancer Social History Household Members: Family Housing: House Are you a primary home child care provider to a significant other at home: No Do you presently have visiting nurse or other home services: Yes (insurance nurse) Alcohol intake: never Patient Tobacco Use Status: Never used Tobacco e-Cigarette/Vaping Use: Never Used Second Hand Smoke Exposure: No service: No Current occupational status: disabled Cognitive needs: No Hearing needs: No Vision needs: Yes Physical Exam Absence of Cushingoid features. Absence of acromegalic features. Neck exam reveals nl size thyroid about 15 gms. No thyroid nodules palpable. No carotid bruits present. Lungs CTA. Heart S1 S2, Reg R/R. No M/R/ G. Skin exam reveals absence of vitiligo or acanthosis nigricans. Abdominal exam reveals Soft NT/ND with NA BS. No organomegaly present. Const Other: Absence of Cushingoid features. Absence of acromegalic features. Neck exam reveals nl size thyroid about 15 gms. No thyroid nodules palpable. Heart S1 S2, Reg R/R. No M/R G. Skin exam reveals absence of vitiligo or acanthosis nigricans. No edema Foot exam deferred will do next month Neck Other: . Extrem Other: Visual exam of foot performed. No ulcerations or open lesions. No onchomycosis, no callouses.Pulses 2 + distally Sensation intact to monofilament exam. Vibratory sensation sensed is intact with 128 Hz tuning fork Assessment & Plan Assessment & Plan (1) Type 2 diabetes mellitus with hyperglycemia: Code(s): E11.65 - Type 2 diabetes mellitus with hyperglycemia Category: Medical Qualifiers: Diabetes mellitus keno terminal operator insulin use: without retirement use Qualified Code(s): E11.65 - Type 2 diabetes mellitus with hyperglycemia Plan: 84-year-old with type 2 diabetes with known CAD, neuropathy and nephropathy who is currently well-controlled with metformin twice daily and Trulicity 3.0 mg per history from both the patient and daughter on log readings. She is checking her sugar 3 times daily. She is having symptoms of fullness and no appetite in his requesting to decreased to 1.5mg on the Trulicity. Her daughter today requests a letter today for the patient's intermediate for no added salt sodium and no concentrated sweets. I will see the patient back in 1 month with her log book. Given her age an A1c of 8% or average 180 would be acceptable. If her numbers increase beyond this we could consider acarbose or once daily insulin. Medications: New dulaglutide (Trulicity) 1.5 mg (0.5 mL) subcut QWEEK 28 days 2 mL 6RF Patient Instructions: Take 15 carb carbohydrate grams to treat a low sugar (3-4 glucose tablets, half a glass of juice or 15 carbohydrate grams of soft candy such as gummie snacks). Recheck your sugar in 15 minutes and re-treat again with 15 carbohydrate grams if low or still with symptoms. Do not drive a car or operate machinery if you do not know what your blood sugar is, if it is low or in excess of 300. Coding Level of Care Code New Pt Level 4 (40006) Complex EM visit Add On G2211 Diagnoses Type 2 diabetes mellitus with hyperglycemia, without long-term current use of insulin E11.65 Diabetes mellitus retirement insulin use: without retirement use Time Spent (min) 30 Comment Time spent reviewing labs/provider notes, face to face, chart doc
--- OUTSIDE RECORDS SUMMARY | 2024-11-15 07:31 | XMS_ITS | Clinical Summary ---
Author Organization [facility]. Address [address] [address] Phone Care Team Providers Care Tuber Machine Operator Helper Name Role Phone Pam Wills MD Primary Care Provider [phone] Allergies No known active allergies Medications amLODIPine [...] Office Visit [facility] [address] [place] [address] Jaylon Barreto MD Stage 3a chronic kidney [...] Office Visit [facility] [address] [facility] [address] [place] [address] Jaylon Barreto MD [address] [phone] Health Maintenance Due Date Last Done Comments [...] Most Recently Relevant to Health Maintenance Insurance [facility] Medicare [facility] Medicare Care Teams Tuber Machine Operator Helper Relationship Specialty Start Date End Date Pam Wills MD [address] [place] [address] PCP - General Internal Medicine 05/11/21
--- OUTSIDE RECORDS SUMMARY | 2024-11-15 07:31 | XMS_ITS | Clinical Summary ---
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 Govea on November 2024 Diabetes mellitus type 2 wit h neurological manifestations ([facility] V24, [facility] V28) 05/03/2017 Hyperlipidemia 05/03/2017 Hypertension 05/03/2017 Allergic rhinitis 04/25/2017 Asthma-COPD overlap syndrome ([facility] V24, [facility] V28) 04/25/2017 Overview (04/03/2024): Last Assessment [...] unspecified organism, unspecified acute renal failure type ([facility] V24, [facility] V28) 09/04/2024 09/06/2024 Encounters Date Type Department Care Team Description 10/30/2024 5:00 PM EDT - 10/31/2024 11:43 AM EDT Hospital Encounter [facility] Emergency [address] [place] [address] Mark Woodard MD Sondhi, Vikram, MD Jones, Christopher, MD Santoyo-Pachec o, Omar D, MD Chest pain at rest (Primary Dx) Discharge Disposition: [place] [facility] [place]23[facility]20[facility] [address] [address] Rio Diaz [place] Fitting for DME ([employer]) 10/22/2024 11:30 AM EDT [facility] [address] [address] Fco Parsons MD Asthma-COPD overlap syndrome ([facility] V24, [facility] V28) (Primary Dx); PAKO (mycobacterium avium-intracellulare) ([facility] V24, [facility] V28) 09/04/2024 8:45 AM EST - 09/06/2024 12:42 PM [facility] Unit [address] [place] [id number] Osmany Oquendo MD Bukalo, Nermina, MD Zipagan, James T, MD Sepsis with acute renal failure without septic shock, due to unspecified organism, unspecified acute renal failure type ([facility] V24, [facility] V28) (Primary Dx) Discharge Disposition: [place] [facility] 08/28/2024 5:53 PM EST - 08/29/2024 1:35 AM [facility] Emergency [address] [place] [phone] COPD exacerbation ([facility] V24, [facility] V28) (Primary Dx) Discharge Disposition: Home or Self Care 08/27/2024 2:00 AM EST - 08/27/2024 3:33 AM [facility] Emergency [address] [place] [phone] Marshall Smith MD Pneumonia of right middle [...] DX:Diabetes mellitus type 2 with neurological manifestations ([facility]) Hyperlipidemia 05/03/2017 DX:Hyperlipidemi a Hypertension 05/03/2017 [...] Description 11/15/2024 1:00 PM EDT Ancillary Procedure [facility] [address] [place] [address] 12/03/2024 1:30 PM EDT Office Visit Infectious Disease - [place] 175 [facility] [address] [place] [address] Natalie Govea MD [address] [address] 05/08/2025 10:45 AM EDT Office Visit Pulmonolgy - [place] 175 [facility] [address] [place] [address] Fco Parsons MD [address] [address] Health Maintenance Due Date Last Done Comments [...] LAB CHEMISTRY METHOD 10/31/2024 9:33 AM EDT [facility] Blood Venous blood specimen / Unknown Venipuncture / Unknown 10/31/2024 8:48 AM EDT 10/31/2024 8:55 AM EDT Narrative [facility] - 10/31/2024 9:33 AM EDT High levels of biotin in samples may falsely decrease hsTroponin values. ??Use caution when interpreting hsTroponin results in patients taking biotin who exhibit renal impairment (eGFR <60) or in patients taking more than 20 mg/day of biotin. us Vineet Mcclellan MD LAB BLOOD ORDERABLES F inal Result [facility] [address] [place] [address], [place] [phone] * (ABNORMAL) POCT Glucose, blood (10/31/2024 7:30 AM EDT) Only the most recent of13 resultswithin the time period is included. Pathologist [facility] Glucose POCT 116(H) 70 - 100 mg/dL 10/31/2024 7:31 AM EDT [facility] Blood Capillary blood specimen / Unknown 10/31/2024 7:30 AM EDT 10/31/2024 7:32 AM EDT us Vineet Mcclellan MD LAB POINT OF C ARE TEST DOCKED DEVICE UNSOLICITED RESULTS Final Result Performing Organization Address [facility]/ZIP Co de Phone Number [facility] [address] [place] [address], [place] [phone] * (ABNORMAL) Complete blood count (10/31/2024 5:20 AM EDT) Only the most recent of2 resultswithin the time period is included. [facility] WBC 7.5 4.8 - 10.8 K/mcL LAB HEMETOLOGY METHOD 10/31/2024 6:24 AM EDT [facility] RBC 4.50 3.80 - 4.80 M/mcL LAB HEMETOLOGY METHOD 10/31/2024 6:24 AM EDT [facility] Hemoglobin 11.4(L) 11.5 - 16.0 g/dL LAB HEMETOLOGY METHOD 10/31/2024 6:24 AM EDT [facility] Hematocrit 36.3 35.0 - 47.0 % LAB HEMETOLOGY METHOD 10/31/2024 6:24 AM EDT [facility] MCV 80.1 79.0 - 98.0 FL LAB HEMETOLOGY METHOD 10/31/2024 6:24 AM EDT [facility] MCH 25.2(L) 27.0 - 32.0 pcg LAB HEMETOLOGY METHOD 10/31/2024 6:24 AM EDT [facility] MCHC 31.4(L) 32.0 - 37.0 g/dL LAB HEMETOLOGY METHOD 10/31/2024 6:24 AM EDT [facility] RDW 13.5 11.0 - 15.0 % LAB HEMETOLOGY METHOD 10/31/2024 6:24 AM EDT [facility] Platelets 274 130 - 400 K/mcL LAB HEMETOLOGY METHOD 10/31/2024 6:24 AM EDT [facility] MPV 9.9 7.0 - 11.0 FL LAB HEMETOLOGY METHOD 10/31/2024 6:24 AM EDT [facility] NRBC 0.0 <1.0 % LAB HEMETOLOGY METHOD 10/31/2024 6:24 AM EDT [facility] NRBC Absolute 0.00 <0.10 K/mcL LAB HEMETOLOGY METHOD 10/31/2024 6:24 AM [facility] Blood Venous blood specimen / Unknown Venipuncture / Unknown 10/31/2024 5:20 AM EDT 10/31/2024 5:54 AM EDT us Rodger De La O MD LAB BLOOD ORDERABLES Final Resu lt [facility] [address] [place] [address], * (ABNORMAL) Basic metabolic panel (10/31/2024 5:20 AM EDT) Only the most recent of3 resultswithin the time period is included. Sodium 138 133 - 145 mmol/L LAB CHEMISTRY METHOD 10/31/2024 6:43 AM EDT [facility] Potassium 4.2 3.5 - 5.5 mmol/L LAB CHEMISTRY METHOD 10/31/2024 6:43 AM [facility] Chloride 104 96 - 110 mmol/L LAB CHEMISTRY METHOD 10/31/2024 6:43 AM [facility] CO2 33(H) 21 - 32 mmol/L LAB CHEMISTRY METHOD 10/31/2024 6:43 AM [facility] Anion Gap 1(L) 3 - 11 LAB CHEMISTRY METHOD 10/31/2024 6:43 AM [facility] Glucose 106(H) 70 - 100 mg/dL LAB CHEMISTRY METHOD 10/31/2024 6:43 AM [facility] BUN 25 5 - 25 mg/dL LAB CHEMISTRY METHOD 10/31/2024 6:43 AM [facility] Creatinine 0.84 0.50 - 1.10 mg/dL LAB CHEMISTRY METHOD 10/31/2024 6:43 AM [facility] eGFR 68 >=60 mL/min/1. 73m2 LAB CHEMISTRY METHOD 10/31/2024 6:43 AM [facility] Comment:Calculation based on the??Chronic Kidney Disease Epidemiology Collaboration (CKD-EPI) equation refit??without adjustment for race. BUN/Creatinine Ratio 29.8 LAB CHEMISTRY METHOD 10/31/2024 6:43 AM [facility] Calcium 9.6 8.5 - 10.5 mg/dL LAB CHEMISTRY METHOD 10/31/2024 6:43 AM [facility] Blood Venous blood specimen / Unknown Venipuncture / Unknown 10/31/2024 5:20 AM EDT 10/31/2024 5:55 AM EDT us Rodger De La O MD LAB BLOOD ORDERABLES Final Resu lt [facility] [address] [place] [address], [place] [phone] * XR Chest 2 Views (10/30/2024 6:13 [...] Signed Date: 10/31/2024 11:27 ET Workstation ID: [id number] Transcribed By: Self Edit Transcribed Date: 10/31/2024 [...] Signed Date: 10/31/2024 11:27 ET Workstation ID: [id number] Transcribed By: Self Edit Transcribed Date: 10/31/2024 [...] GEMUSE QTc 438 ms GEMUSE P Wave [place] 70 degrees GEMUSE R [place] 57 degrees GEMUSE T [place] 60 degrees GEMUSE ECG Interpretation Normal sinus [...] resultswithin the time period is included. Pathologist [facility] WBC 10.7 4.8 - 10.8 K/mcL LAB HEMETOLOGY METHOD 10/30/2024 3:29 PM EDT [facility] RBC 4.70 3.80 - 4.80 M/mcL LAB HEMETOLOGY METHOD 10/30/2024 3:29 PM EDT [facility] Hemoglobin 12.0 11.5 - 16.0 g/dL LAB HEMETOLOGY METHOD 10/30/2024 3:29 PM EDT [facility] Hematocrit 38.3 35.0 - 47.0 % LAB HEMETOLOGY METHOD 10/30/2024 3:29 PM EDT [facility] MCV 81.0 79.0 - 98.0 FL LAB HEMETOLOGY METHOD 10/30/2024 3:29 PM EDT [facility] MCH 25.4(L) 27.0 - 32.0 pcg LAB HEMETOLOGY METHOD 10/30/2024 3:29 PM [facility] MCHC 31.3(L) 32.0 - 37.0 g/dL LAB HEMETOLOGY METHOD 10/30/2024 3:29 PM [facility] RDW 13.3 11.0 - 15.0 % LAB HEMETOLOGY METHOD 10/30/2024 3:29 PM [facility] Platelets 293 130 - 400 K/mcL LAB HEMETOLOGY METHOD 10/30/2024 3:29 PM [facility] MPV 10.0 7.0 - 11.0 FL LAB HEMETOLOGY METHOD 10/30/2024 3:29 PM [facility] NRBC 0.0 <1.0 % LAB HEMETOLOGY METHOD 10/30/2024 3:29 PM [facility] NRBC Absolute 0.00 <0.10 K/mcL LAB HEMETOLOGY METHOD 10/30/2024 3:29 PM [facility] Neutrophils Relative 68.1 % LAB HEMETOLOGY METHOD 10/30/2024 3:29 PM [facility] Lymphocytes Relative 22.9 % LAB HEMETOLOGY METHOD 10/30/2024 3:29 PM [facility] Monocytes Relative 7.2 % LAB HEMETOLOGY METHOD 10/30/2024 3:29 PM [facility] Eosinophils Relative 0.7 % LAB HEMETOLOGY METHOD 10/30/2024 3:29 PM [facility] Basophils Relative 0.5 % LAB HEMETOLOGY METHOD 10/30/2024 3:29 PM [facility] Immature Granulocytes Relative 0.6 % LAB HEMETOLOGY METHOD 10/30/2024 3:29 PM [facility] Neutrophils Absolute 7.27(H) 1.50 - 7.00 K/mcL LAB HEMETOLOGY METHOD 10/30/2024 3:29 PM EDT [facility] Lymphocytes Absolute 2.44 1.00 - 5.00 K/mcL LAB HEMETOLOGY METHOD 10/30/2024 3:29 PM EDT [facility] Monocytes Absolute 0.77 0.20 - 1.00 K/mcL LAB HEMETOLOGY METHOD 10/30/2024 3:29 PM EDT [facility] Eosinophils Absolute 0.08 0.00 - 0.50 K/[facility] LAB HEMETOLOGY METHOD 10/30/2024 3:29 PM EDT [facility] Basophils Absolute 0.05 0.00 - 0.20 K/mcL LAB HEMETOLOGY METHOD 10/30/2024 3:29 PM EDT [facility] Immature Granulocytes Absolute 0.06(H) 0.00 - 0.03 K/[facility] LAB HEMETOLOGY METHOD 10/30/2024 3:29 PM EDT [facility] Blood Venous blood specimen / Unknown Venipuncture / Unknown 10/30/2024 3:09 PM EDT 10/30/2024 3:19 PM EDT Mark Woodard MD LAB BLOOD ORDERABLES Final Resu lt [facility] [address] [place] [address], * C-reactive protein (10/30/2024 3:09 PM EDT) C-Reactive Protein <0.29 <=0.50 mg/dL LAB CHEMISTRY METHOD 10/30/2024 8:44 PM EDT [facility] Blood Venous blood specimen / Unknown Venipuncture / Unknown 10/30/2024 3:09 PM EDT 10/30/2024 3:19 PM EDT Eliseo Lacy MD LAB BLOOD ORDERABLES Final Result Performing Organization Address [facility] de Phone Number [facility] [address] [place] [address], [place] [phone] * B-type natriuretic peptide (10/30/2024 3:09 PM EDT) Only the most recent of4 resultswithin the time period is included. BNP 60 <=100 pcg/mL LAB CHEMISTRY METHOD 10/30/2024 4:44 PM EDT [facility] Blood Venous blood specimen / Unknown Venipuncture / Unknown 10/30/2024 3:09 PM EDT 10/30/2024 3:19 PM EDT Mark Woodard MD LAB BLOOD ORDERABLES Final Resu lt Performing Organization Address [facility] de Phone Number [facility] [address] [place] [address], [place] [phone] * (ABNORMAL) Magnesium (10/30/2024 3:09 PM EDT) Only the most recent of3 resultswithin the time period is included. Magnesium 1.7(L) 1.9 - 2.6 mg/dL LAB CHEMISTRY METHOD 10/30/2024 4:24 PM EDT [facility] Blood Venous blood specimen / Unknown Venipuncture / Unknown 10/30/2024 3:09 PM EDT 10/30/2024 3:19 PM EDT us Mark Woodard MD LAB BLOOD ORDERABLES Final Resu lt Performing Organization Address [facility]/ZIP Co de Phone Number [facility] [address] [place] [address], [place] [phone] * (ABNORMAL) Lipase (10/30/2024 3:09 PM EDT) Only the most recent of3 resultswithin the time period is included. Lipase 80(H) 13 - 75 unit/L LAB CHEMISTRY METHOD 10/30/2024 4:40 PM [facility] Blood Venous blood specimen / Unknown Venipuncture / Unknown 10/30/2024 3:09 PM EDT 10/30/2024 3:19 PM EDT us Mark Woodard MD LAB BLOOD ORDERABLES Final Resu lt [facility] [address] [place] [address], * (ABNORMAL) Comprehensive metabolic panel (10/30/2024 3:09 PM EDT) Only the most recent of3 resultswithin the time period is included. Sodium 135 133 - 145 mmol/L LAB CHEMISTRY METHOD 10/30/2024 4:40 PM [facility] Potassium 4.6 3.5 - 5.5 mmol/L LAB CHEMISTRY METHOD 10/30/2024 4:40 PM [facility] Chloride 100 96 - 110 mmol/L LAB CHEMISTRY METHOD 10/30/2024 4:40 PM [facility] CO2 30 21 - 32 mmol/L LAB CHEMISTRY METHOD 10/30/2024 4:40 PM [facility] Anion Gap 5 3 - 11 LAB CHEMISTRY METHOD 10/30/2024 4:40 PM [facility] Glucose 160(H) 70 - 100 mg/dL LAB CHEMISTRY METHOD 10/30/2024 4:40 PM [facility] BUN 26(H) 5 - 25 mg/dL LAB CHEMISTRY METHOD 10/30/2024 4:40 PM [facility] Creatinine 0.99 0.50 - 1.10 mg/dL LAB CHEMISTRY METHOD 10/30/2024 4:40 PM [facility] eGFR 56(L) >=60 mL/min/1. 73m2 LAB CHEMISTRY METHOD 10/30/2024 4:40 PM [facility] Comment:Calculation based on the??Chronic Kidney Disease Epidemiology Collaboration (CKD-EPI) equation refit??without adjustment for race. BUN/Creatinine Ratio 26.3 LAB CHEMISTRY METHOD 10/30/2024 4:40 PM T [facility] Calcium 10.0 8.5 - 10.5 mg/dL LAB CHEMISTRY METHOD 10/30/2024 4:40 PM [facility] AST (SGOT) 6(L) 10 - 42 unit/L LAB CHEMISTRY METHOD 10/30/2024 4:40 PM [facility] ALT (SGPT) 15 10 - 60 unit/L LAB CHEMISTRY METHOD 10/30/2024 4:40 PM [facility] Alkaline Phosphatase 82 42 - 121 unit/L LAB CHEMISTRY METHOD 10/30/2024 4:40 PM [facility] Total Protein 7.6 6.0 - 8.0 g/dL LAB CHEMISTRY METHOD 10/30/2024 4:40 PM [facility] Albumin 3.9 3.2 - 5.0 g/dL LAB CHEMISTRY METHOD 10/30/2024 4:40 PM [facility] Total Bilirubin 0.3 0.0 - 1.4 mg/dL LAB CHEMISTRY METHOD 10/30/2024 4:40 PM [facility] Blood Venous blood specimen / Unknown Venipuncture / Unknown 10/30/2024 3:09 PM EDT 10/30/2024 3:19 PM EDT us Mark Woodard MD LAB BLOOD ORDERABLES Final Resu lt [facility] [address] [place] [address], [place] [phone] * SST tube (09/06/2024 6:52 AM EST) Extra Tube Hold for add-ons. 09/06/2024 9:01 AM EST [facility] Comment:Auto resulted. Blood Venous blood specimen / Unknown Venipuncture / Unknown 09/06/2024 6:52 AM EST 09/06/2024 7:29 AM EST us John Cope MD LAB BLOOD ORDERABLES Final Re sult [facility] [address] [place] [address], [place] [phone] * Activated Partial Thromboplastin Time - STAT (09/05/2024 12:31 PM EST) Pathologist [facility] aPTT 24.1 24.1 - 39.3 sec LAB COAGULATION METHOD 09/05/2024 12:56 PM EST [facility] Blood Venous blood specimen / Unknown Venipuncture / Unknown 09/05/2024 12:31 PM EST 09/05/2024 12:42 PM EST us John Cope MD LAB BLOOD ORDERABLES Final Re sult [facility] [address] [place] [address], [place] [phone] * Prothrombin Time with INR - STAT (09/05/2024 12:31 PM EST) Protime 12.3 10.6 - 13.9 sec LAB COAGULATION METHOD 09/05/2024 12:56 PM [facility] INR 1.0 LAB COAGULATION METHOD 09/05/2024 12:56 PM [facility] Blood Venous blood specimen / Unknown Venipuncture / Unknown 09/05/2024 12:31 PM EST 09/05/2024 12:42 PM EST us John Cope MD LAB BLOOD ORDERABLES Final Re sult Performing Organization Address [facility]/ZIP Co de Phone Number [facility] [address] [place] [address], [place] [phone] * Hepatic Function Panel - STAT (09/05/2024 12:31 PM EST) Total Protein 6.9 6.0 - 8.0 g/dL LAB CHEMISTRY METHOD 09/05/2024 1:20 PM EST [facility] Albumin 3.5 3.2 - 5.0 g/dL LAB CHEMISTRY METHOD 09/05/2024 1:20 PM EST [facility] Total Bilirubin 0.8 0.0 - 1.4 mg/dL LAB CHEMISTRY METHOD 09/05/2024 1:20 PM EST [facility] Bilirubin, Direct 0.2 0.0 - 0.3 mg/dL LAB CHEMISTRY METHOD 09/05/2024 1:20 PM EST [facility] Bilirubin, Indirect 0.6 0.0 - 1.1 mg/dL LAB CHEMISTRY METHOD 09/05/2024 1:20 PM EST [facility] ALT (SGPT) 21 10 - 60 unit/L LAB CHEMISTRY METHOD 09/05/2024 1:20 PM [facility] AST (SGOT) 13 10 - 42 unit/L LAB CHEMISTRY METHOD 09/05/2024 1:20 PM EST [facility] Alkaline Phosphatase 67 42 - 121 unit/L LAB CHEMISTRY METHOD 09/05/2024 1:20 PM [facility] Blood Venous blood specimen / Unknown Venipuncture / Unknown 09/05/2024 12:31 PM EST 09/05/2024 12:42 PM EST John Cope MD LAB BLOOD ORDERABLES Final Re sult Performing Organization Address City/[facility]/ZIP Co de Phone Number [facility] [address] [place] [address], * Lactate (09/05/2024 6:38 AM EST) Only the most recent of3 resultswithin the time period is included. Lactate 1.5 0.4 - 2.0 mmol/L LAB CHEMISTRY METHOD 09/05/2024 7:19 AM EST [facility] Blood Venous blood specimen / Unknown Venipuncture / Unknown 09/05/2024 6:38 AM EST 09/05/2024 6:47 AM EST Andres GARCIA LAB BLOOD ORDERABLES Final Res ult Performing Organization Address [facility] de Phone Number [facility] [address] [place] [address], * Legionella antigen urine, EIA (09/04/2024 12:28 PM EST) Legionella Antigen, Ur Negative Negative 09/04/2024 2:21 PM EST [facility] Urine Urine specimen from urethra / Unknown Non-blood Collection / Unknown 09/04/2024 12:28 PM EST 09/04/2024 12:42 PM EST Narrative [facility] - 09/04/2024 2:21 PM EST Negative for Legionella pneumophilia serogroup 1 antigen. This presumptive result suggests no current or recent infection due to L. pneumophilia serogroup 1. Culture is recommended if Legionella infection is till suspected, as other serogroups and species of Legionella are not detected by this test. Laron Maldonado MD LAB URINE ORDERABLES Final Res ult Performing Organization Address [facility] Co de Phone Number [facility] [address] [place] [address], * Streptococcus pneumoniae antibodies, IgG, 23 serotypes (09/04/2024 11:55 AM EST) [facility] Serotype 1 (1) 1.1 >=1.0 mcg/mL [...] developed and its performance characteristics determined by [facility] in a manner consistent with CLIA requirements. This test has not been cleared or approved by the U.S. Food and Drug Administration. Test Performed by: [facility] [address] [place] [address] Electrochemist: Iris Ruiz Ph.D.; CLIA# [id number] Blood Venous blood specimen / Unknown Venipuncture / Unknown 09/04/2024 11:55 AM EST 09/04/2024 12:00 PM EST us Laron Maldonado MD LAB BLOOD ORDERABLES Final Res ult MIKAEL LACKEY [address] [place] [address] * CT Chest wo Contrast (09/04/2024 9:19 [...] Signed Date: 09/04/2024 09:41 ET Workstation ID: [id number] Transcribed By: Self Edit Transcribed Date: 09/04/2024 [...] Signed Date: 09/04/2024 09:41 ET Workstation ID: [id number] Transcribed By: Self Edit Transcribed Date: 09/04/2024 09:37 ET [facility] B Jere [facility] CT PROCEDURES Final Result * Blood Culture, Peripheral Draw #2 (09/04/2024 9:10 AM EST) Only the most recent of2 resultswithin the time period is included. [facility] Culture, Blood No growth at 5 days 09/09/2024 10:01 AM EST [facility] Blood Venous blood specimen / Unknown Venipuncture / Unknown 09/04/2024 9:10 AM EST 09/04/2024 9:21 AM EST Osmany Oquendo MD LAB MICROBIOLOGY - [facility] Final Result Performing Organization Address City/[facility]/ZIP Co de Phone Number [facility] [address] [place] [address], [place] [phone] * (ABNORMAL) Hemoglobin A1c (09/04/2024 9:10 AM EST) [facility] Hemoglobin A1C 8.5(H) <6.5 % LAB CHEMISTRY METHOD 09/04/2024 5:11 PM EST [facility] Mean Bld Glu Estim. 197 mg/dL LAB CHEMISTRY METHOD 09/04/2024 5:11 PM [facility] Blood Venous blood specimen / Unknown Venipuncture / Unknown 09/04/2024 9:10 AM EST 09/04/2024 9:26 AM EST Laron Maldonado MD LAB BLOOD ORDERABLES Final Res ult [facility] [address] [place] [address], [place] [phone] * Respiratory virus panel molecular study (09/04/2024 9:02 AM EST) Only the most recent of3 resultswithin the time period is included. [facility] Adenovirus Detection by PCR Not Detected Not Detected LAB MICROBIOLOGY METHOD 09/04/2024 10:45 AM EST [facility] Influenza A PCR Not Detected Not Detected LAB MICROBIOLOGY METHOD 09/04/2024 10:45 AM [facility] Influenza B PCR Not Detected Not Detected LAB MICROBIOLOGY METHOD 09/04/2024 10:45 AM [facility] Coronavirus 229E Not Detected Not Detected LAB MICROBIOLOGY METHOD 09/04/2024 10:45 AM [facility] Coronavirus HKU1 Not Detected Not Detected LAB MICROBIOLOGY METHOD 09/04/2024 10:45 AM [facility] Coronavirus OC43 Not Detected Not Detected LAB MICROBIOLOGY METHOD 09/04/2024 10:45 AM [facility] Coronavirus NL63 Not Detected Not Detected LAB MICROBIOLOGY METHOD 09/04/2024 10:45 AM [facility] Parainfluenza Virus 1 Not Detected Not Detected LAB MICROBIOLOGY METHOD 09/04/2024 10:45 AM [facility] Parainfluenza Virus 2 Not Detected Not Detected LAB MICROBIOLOGY METHOD 09/04/2024 10:45 AM [facility] Parainfluenza Virus 3 Not Detected Not Detected LAB MICROBIOLOGY METHOD 09/04/2024 10:45 AM [facility] Parainfluenza Virus 4 Not Detected Not Detected LAB MICROBIOLOGY METHOD 09/04/2024 10:45 AM [facility] RSV PCR Not Detected Not Detected LAB MICROBIOLOGY METHOD 09/04/2024 10:45 AM [facility] Human Metapneumovirus A and B Not Detected Not Detected LAB MICROBIOLOGY METHOD 09/04/2024 10:45 AM [facility] Rhinovirus/Entero virus Not Detected Not Detected LAB MICROBIOLOGY METHOD 09/04/2024 10:45 AM [facility] Bordetella pertussis Not Detected Not Detected LAB MICROBIOLOGY METHOD 09/04/2024 10:45 AM [facility] Bordetella parapertussis Not Detected Not Detected LAB MICROBIOLOGY METHOD 09/04/2024 10:45 AM [facility] Mycoplasma pneumo by PCR Not Detected Not Detected LAB MICROBIOLOGY METHOD 09/04/2024 10:45 AM EST [facility] Chlamydia pneumoniae Not Detected Not Detected LAB MICROBIOLOGY METHOD 09/04/2024 10:45 AM EST [facility] SARS COV-2 Not Detected Not Detected LAB MICROBIOLOGY METHOD 09/04/2024 10:45 AM EST [facility] Swab Nasopharyngeal structure / Unknown Non-blood Collection / Unknown 09/04/2024 9:02 AM EST 09/04/2024 9:26 AM EST Narrative [facility] - 09/04/2024 10:45 AM EST Testing was performed using the [employer] Respiratory Pathogen PCR Assay. All results must [...] Oquendo MD LAB MICROBIOLOGY - GENERAL ORDE [facility] Final Result [facility] [address] [place] [address], * [place] [facility] 30-74 MINUTES (09/04/2024 [...] PM EST Narrative 07/01/2019 4:51 PM EST [facility] Diagnostic Imaging Department [address] [place], [place] [id number] Patient: ??KRISTIN VALDIVIA ?/Age/Sex: 1940 - 78 - F Unit#: ??[id number] ? Location/Status: ??SPDIMAM/REG CLI ? Mnemonic/Ordering Site: ??DIGSC/SPMAM Ordering Physician: ??GRISELDA VELAZQUEZ MD Dominic Screening Digital - 07/01/19 - 1317 INDICATION: SCREENING COMPARISON: No prior studies are available for comparison. TECHNIQUE: CC and MLO views of the breasts were obtained, using full field digital mammography with 3D tomosynthesis views in the MLO projection. Computer aided detection with the Estify.2-Narrative Science was employed. Patient reports 2 sisters with [...] date for the next mammogram. ([id number] / [id number]) , ??[id number] Dictating Physician: ??BRODY SMITH MD Electronically Signed by: ??BRODY SMITH MD Dic Date/Time: ??07/01/19 1646 Sign date/Time: ??07/01/19 1651 Procedure Note Brody Smith - 07/13/2022 [facility] Diagnostic Imaging Department [address] [place] [id number] Patient: KRISTIN VALDIVIA/Age/Sex: 1940 - 78 - F Unit#: [id number] Location/Status: SPDIMAM/REG CLI Mnemonic/Ordering Site: [facility] Ordering Physician: GRISELDA VELAZQUEZ MD Dominic Screening Digital - 07/01/19 - 1317 INDICATION: SCREENING COMPARISON: No prior studies are available for comparison. TECHNIQUE: CC and MLO views of the breasts were obtained, using full field digital mammography with 3D tomosynthesis views in the MLO projection. Computer aided detection with the [employer]uc[employer] 7.2-H was employed. Patient reports 2 sisters [...] a target date for the next mammogram. [id number] / [id number]) , [id number] Dictating Physician: BRODY SMITH MD Electronically Signed by: BRODY SMITH MD Dic Date/Time: 07/01/19 1640 Sign date/Time: 07/01/19 1651 Griselda Velazquez MD [...] Insurance [employer] MEDICARE MEDICAID - [place] [facility] Advance Directives Documents on File Type Date Recorded Patient Petrology Teacher Expl anation Health Care Decision (hx) 03/17/2017 [...] Agents on File Name Relationship Healthcare Agent [facility] p Communication Liz Starr Daughter Health Care Agent Care Teams Lead Cook Relationship Specialty Start Date End Date Pam Montoya MD [address] [place] [address] , [address] [facility] D/B/A: [facility] [place] PCP - General Internal Medicine 10/30/24
--- OUTSIDE RECORDS SUMMARY | 2024-11-15 07:31 | XMS_ITS | Clinical Summary ---
Author Organization [employer] [facility] Address [address] [place] [address] Care Team Providers Care Admissions Rn Name Role Phone Pam Wills MD Primary [...] age to complete this topic Care Teams Admissions Rn Relationship Specialty Start Date End Date Pam Wills MD [address] [facility] [address], [address] [facility] D/B/A: [facility] [place] [address] PCP - General Internal Medicine 02/02/22
--- OUTSIDE RECORDS SUMMARY | 2024-11-15 07:31 | XMS_ITS | Encounter Summary ---
Author Organization [facility] Address [address] [facility] [address] [facility] [facility] [address] [place] [address] Phone Care Team Providers Care Corrective And Manual Arts Therapist Name Role Phone Pam Wills MD Primary Care Provider [phone] Encounter Details Date Type Department Care Team (Late Contact Info) Description 08/03/2021 Documentation Only [facility] [address] [facility] [address] [place] [phone] Jaylon Barreto MD [address] [address] Social History Tobacco Use Types [...] Visit [facility] [address] [address] Jaylon Barreto MD [address] [address] documented as of this encounter Visit Diagnoses Not on filedocumented in this encounter Care Teams Corrective And Manual Arts Therapist Relationship Specialty Start Date End Date Pam Wills MD [address] [place], [place] PCP - General Internal Medicine 05/11/21 documented as of this encounter
[2024-11-15 07:35] VITALS: BP 142/48; PULSE 101; O2SAT 93; BMI 23.9
[2024-11-15 07:50] LABS: Glucose, Whole Blood 155 mg/dL (60-115)
== END 2024-11-15 08:09 | disposition home or self-care (01) ==
LOC: HO.ENCR 07:29
PROVIDERS: PCP Internal Medicine; Visit Provider Nurse Practitioner Adult Health
DX: E11.65 Type 2 diabetes mellitus with hyperglycemia (principal)
CPT/HCPCS: 99204; G2211

== ENCOUNTER → 2024-11-15 07:29 | Outpatient (BNVA) | payer MEDICARE, OTHER, MEDICAID, SELFPAY | PROVIDERS: PCP Internal Medicine; Visit Provider Nurse Practitioner Adult Health | DX: Z13.89 Encounter for screening for other disorder (principal) | CPT/HCPCS: 82947; 99202 ==

== ENCOUNTER 2024-11-15 08:17 | Outpatient (AMB) | payer MEDICARE, OTHER, MEDICAID, SELFPAY ==
--- OUTSIDE RECORDS SUMMARY | 2024-11-15 08:22 | XMS_ITS | Clinical Summary ---
Author Organization [facility]. Address [address] [address] Phone Care Team Providers Care Body Liner Name Role Phone Pam Wills MD Primary Care Provider [phone] Allergies No known active allergies Medications amLODIPine [...] Office Visit [facility] [address] [place] [address] Jaylon Barreto MD Stage 3a chronic kidney [...] Office Visit [facility] [address] [facility] [address] [place] [address] Jaylon Barreto MD [address] [phone] Health Maintenance Due Date Last Done Comments [...] Relevant to Health Maintenance Insurance [facility] Medicare [facility] Medicare Care Teams Body Liner Relationship Specialty Start Date End Date Pam Wills MD [address] [place] [address] PCP - General Internal Medicine 05/11/21
--- OUTSIDE RECORDS SUMMARY | 2024-11-15 08:23 | XMS_ITS | Clinical Summary ---
Author Organization [employer] [facility] Address [address] [place] [address] Care Team Providers Care Financial Associate Name Role Phone Pam Wills MD Primary [...] age to complete this topic Care Teams Financial Associate Relationship Specialty Start Date End Date Pam Wills MD [address] [facility] [address], [address] [facility] D/B/A: [facility] [place] [address] PCP - General Internal Medicine 02/02/22
--- OUTSIDE RECORDS SUMMARY | 2024-11-15 08:23 | XMS_ITS | Encounter Summary ---
Author Organization [facility] Address [address] [facility] [address] [place] [address] Phone Care Team Providers Care Contact Assembler Name Role Phone Pam Wills MD Primary Care Provider [phone] Encounter Details Date Type Department Care Team (Late Contact Info) Description 08/03/2021 Documentation Only [facility] [address] [facility] [address] [place] [phone] Jaylon Barreto MD [address] [phone] Social History Tobacco Use Types [...] Visit [facility] [address] [address] Jaylon Barreto MD [address] [address] documented as of this encounter Visit Diagnoses Not on filedocumented in this encounter Care Teams Contact Assembler Relationship Specialty Start Date End Date Pam Wills MD [address] [place], [place] PCP - General Internal Medicine 05/11/21 documented as of this encounter
--- OUTSIDE RECORDS SUMMARY | 2024-11-15 08:23 | XMS_ITS | Clinical Summary ---
Author Organization 175 [facility] Address [address] [place] [address] Phone Care Team Providers Care Verifier Name Role Phone Pam Montoya MD Primary Care Provider [phone] Allergies No known active allergies Medications magnesium [...] Noted Date Diagnosed Date Paroxysmal atrial fibrillation ([facility] V24, 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 Govea on November 2024 Diabetes mellitus type 2 wit h neurological manifestations ([facility] V24, [facility] V28) 05/03/2017 Hyperlipidemia 05/03/2017 Hypertension 05/03/2017 Allergic rhinitis 04/25/2017 Asthma-COPD overlap syndrome ([facility] V24, [facility] V28) 04/25/2017 Overview (04/03/2024): Last [...] unspecified organism, unspecified acute renal failure type ([facility] V24, [facility] V28) 09/04/2024 09/06/2024 Encounters Date Type Department Care Team Description 10/30/2024 5:00 PM EDT - 10/31/2024 11:43 AM EDT Hospital Encounter [facility] Emergency [address] [place] [address] Mark Woodard MD Sondhi, Vikram, MD Jones, Christopher, MD Santoyo-Pachec o, Omar D, MD Chest pain at rest (Primary Dx) Discharge Disposition: [place] [facility] [place] [address] [address] [place] Fitting for DME ([employer]) 10/22/2024 11:30 AM EDT [facility] [address] [address] Fco Parsons MD Asthma-COPD overlap syndrome ([facility] V24, [facility] V28) (Primary Dx); PAKO (mycobacterium avium-intracellulare) ([facility] V24, [facility] V28) 09/04/2024 8:45 AM EST - 09/06/2024 12:42 PM [facility] [address] [place] [phone] Osmany Oquendo MD Bukalo, Nermina, MD Zipagan, James T, MD Sepsis with acute renal failure without septic shock, due to unspecified organism, unspecified acute renal failure type ([facility] V24, [facility] V28) (Primary Dx) Discharge Disposition: [place] [facility] 08/28/2024 5:53 PM EST - 08/29/2024 1:35 AM [facility] Emergency [address] [place] [phone] COPD exacerbation ([facility] V24, [facility] V28) (Primary Dx) Discharge Disposition: Home or Self Care 08/27/2024 2:00 AM EST - 08/27/2024 3:33 AM [facility] Emergency [address] [place] [phone] Marshall Smith MD Pneumonia of right middle [...] DX:Diabetes mellitus type 2 with neurological manifestations ([facility]) Hyperlipidemia 05/03/2017 DX:Hyperlipidemi a Hypertension 05/03/2017 DX:Hypertension [...] Description 11/15/2024 1:00 PM EDT Ancillary Procedure [facility] [address] [place] [address] 12/03/2024 1:30 PM EDT Office Visit Infectious Disease - [place] [address] [facility] [address] [place] [address] Natalie Govea MD [address] [address] 05/08/2025 10:45 AM EDT Office Visit Pulmonolgy - [place] [address] [facility] [address] [place] [address] Fco Parsons MD [address] [address] Health Maintenance Due Date Last Done Comments [...] ECG 12-LEAD STAT 09/04/2024 8:56 AM EST [facility] 30-74 MINUTES Routine 09/04/2024 8:41 [...] LAB CHEMISTRY METHOD 10/31/2024 9:33 AM EDT [facility] Blood Venous blood specimen / Unknown Venipuncture / Unknown 10/31/2024 8:48 AM EDT 10/31/2024 8:55 AM EDT Narrative [facility] - 10/31/2024 9:33 AM EDT High levels of biotin in samples may falsely decrease hsTroponin values. ??Use caution when interpreting hsTroponin results in patients taking biotin who exhibit renal impairment (eGFR <60) or in patients taking more than 20 mg/day of biotin. us Vineet Mcclellan MD LAB BLOOD ORDERABLES F inal Result [facility] [address] [place] [address], [place] [phone] * (ABNORMAL) POCT Glucose, blood (10/31/2024 7:30 AM EDT) Only the most recent of13 resultswithin the time period is included. Pathologist [facility] Glucose POCT 116(H) 70 - 100 mg/dL 10/31/2024 7:31 AM EDT [facility] Blood Capillary blood specimen / Unknown 10/31/2024 7:30 AM EDT 10/31/2024 7:32 AM EDT us Vineet Mcclellan MD LAB POINT OF C ARE TEST DOCKED DEVICE UNSOLICITED RESULTS Final Result Performing Organization Address [facility]/ZIP Co de Phone Number [facility] [address] [place] [address], [place] [phone] * (ABNORMAL) Complete blood count (10/31/2024 5:20 AM EDT) Only the most recent of2 resultswithin the time period is included. [facility] WBC 7.5 4.8 - 10.8 K/mcL LAB HEMETOLOGY METHOD 10/31/2024 6:24 AM EDT [facility] RBC 4.50 3.80 - 4.80 M/mcL LAB HEMETOLOGY METHOD 10/31/2024 6:24 AM EDT [facility] Hemoglobin 11.4(L) 11.5 - 16.0 g/dL LAB HEMETOLOGY METHOD 10/31/2024 6:24 AM EDT [facility] Hematocrit 36.3 35.0 - 47.0 % LAB HEMETOLOGY METHOD 10/31/2024 6:24 AM EDT [facility] MCV 80.1 79.0 - 98.0 FL LAB HEMETOLOGY METHOD 10/31/2024 6:24 AM EDT [facility] MCH 25.2(L) 27.0 - 32.0 pcg LAB HEMETOLOGY METHOD 10/31/2024 6:24 AM EDT [facility] MCHC 31.4(L) 32.0 - 37.0 g/dL LAB HEMETOLOGY METHOD 10/31/2024 6:24 AM EDT [facility] RDW 13.5 11.0 - 15.0 % LAB HEMETOLOGY METHOD 10/31/2024 6:24 AM EDT [facility] Platelets 274 130 - 400 K/mcL LAB HEMETOLOGY METHOD 10/31/2024 6:24 AM EDT [facility] MPV 9.9 7.0 - 11.0 FL LAB HEMETOLOGY METHOD 10/31/2024 6:24 AM EDT [facility] NRBC 0.0 <1.0 % LAB HEMETOLOGY METHOD 10/31/2024 6:24 AM EDT [facility] NRBC Absolute 0.00 <0.10 K/mcL LAB HEMETOLOGY METHOD 10/31/2024 6:24 AM [facility] Blood Venous blood specimen / Unknown Venipuncture / Unknown 10/31/2024 5:20 AM EDT 10/31/2024 5:54 AM EDT us Rodger De La O MD LAB BLOOD ORDERABLES Final Resu lt [facility] [address] [place] [address], * (ABNORMAL) Basic metabolic panel (10/31/2024 5:20 AM EDT) Only the most recent of3 resultswithin the time period is included. Sodium 138 133 - 145 mmol/L LAB CHEMISTRY METHOD 10/31/2024 6:43 AM EDT [facility] Potassium 4.2 3.5 - 5.5 mmol/L LAB CHEMISTRY METHOD 10/31/2024 6:43 AM [facility] Chloride 104 96 - 110 mmol/L LAB CHEMISTRY METHOD 10/31/2024 6:43 AM [facility] CO2 33(H) 21 - 32 mmol/L LAB CHEMISTRY METHOD 10/31/2024 6:43 AM [facility] Anion Gap 1(L) 3 - 11 LAB CHEMISTRY METHOD 10/31/2024 6:43 AM [facility] Glucose 106(H) 70 - 100 mg/dL LAB CHEMISTRY METHOD 10/31/2024 6:43 AM [facility] BUN 25 5 - 25 mg/dL LAB CHEMISTRY METHOD 10/31/2024 6:43 AM [facility] Creatinine 0.84 0.50 - 1.10 mg/dL LAB CHEMISTRY METHOD 10/31/2024 6:43 AM [facility] eGFR 68 >=60 mL/min/1. 73m2 LAB CHEMISTRY METHOD 10/31/2024 6:43 AM [facility] Comment:Calculation based on the??Chronic Kidney Disease Epidemiology Collaboration (CKD-EPI) equation refit??without adjustment for race. BUN/Creatinine Ratio 29.8 LAB CHEMISTRY METHOD 10/31/2024 6:43 AM [facility] Calcium 9.6 8.5 - 10.5 mg/dL LAB CHEMISTRY METHOD 10/31/2024 6:43 AM [facility] Blood Venous blood specimen / Unknown Venipuncture / Unknown 10/31/2024 5:20 AM EDT 10/31/2024 5:55 AM EDT us Rodger De La O MD LAB BLOOD ORDERABLES Final Resu lt [facility] [address] [place] [address], [place] [phone] * XR Chest 2 Views (10/30/2024 6:13 [...] Signed Date: 10/31/2024 11:27 ET Workstation ID: [id number] Transcribed By: Self Edit Transcribed Date: 10/31/2024 [...] Signed Date: 10/31/2024 11:27 ET Workstation ID: [id number] Transcribed By: Self Edit Transcribed Date: 10/31/2024 [...] GEMUSE QTc 438 ms GEMUSE P Wave [place] 70 degrees GEMUSE R [place] 57 degrees GEMUSE T [place] 60 degrees GEMUSE ECG Interpretation Normal sinus [...] the time period is included. Pathologist [facility] WBC 10.7 4.8 - 10.8 K/mcL LAB HEMETOLOGY METHOD 10/30/2024 3:29 PM EDT [facility] RBC 4.70 3.80 - 4.80 M/mcL LAB HEMETOLOGY METHOD 10/30/2024 3:29 PM EDT [facility] Hemoglobin 12.0 11.5 - 16.0 g/dL LAB HEMETOLOGY METHOD 10/30/2024 3:29 PM EDT [facility] Hematocrit 38.3 35.0 - 47.0 % LAB HEMETOLOGY METHOD 10/30/2024 3:29 PM EDT [facility] MCV 81.0 79.0 - 98.0 FL LAB HEMETOLOGY METHOD 10/30/2024 3:29 PM EDT [facility] MCH 25.4(L) 27.0 - 32.0 pcg LAB HEMETOLOGY METHOD 10/30/2024 3:29 PM [facility] MCHC 31.3(L) 32.0 - 37.0 g/dL LAB HEMETOLOGY METHOD 10/30/2024 3:29 PM [facility] RDW 13.3 11.0 - 15.0 % LAB HEMETOLOGY METHOD 10/30/2024 3:29 PM [facility] Platelets 293 130 - 400 K/mcL LAB HEMETOLOGY METHOD 10/30/2024 3:29 PM [facility] MPV 10.0 7.0 - 11.0 FL LAB HEMETOLOGY METHOD 10/30/2024 3:29 PM [facility] NRBC 0.0 <1.0 % LAB HEMETOLOGY METHOD 10/30/2024 3:29 PM [facility] NRBC Absolute 0.00 <0.10 K/mcL LAB HEMETOLOGY METHOD 10/30/2024 3:29 PM [facility] Neutrophils Relative 68.1 % LAB HEMETOLOGY METHOD 10/30/2024 3:29 PM [facility] Lymphocytes Relative 22.9 % LAB HEMETOLOGY METHOD 10/30/2024 3:29 PM [facility] Monocytes Relative 7.2 % LAB HEMETOLOGY METHOD 10/30/2024 3:29 PM [facility] Eosinophils Relative 0.7 % LAB HEMETOLOGY METHOD 10/30/2024 3:29 PM [facility] Basophils Relative 0.5 % LAB HEMETOLOGY METHOD 10/30/2024 3:29 PM [facility] Immature Granulocytes Relative 0.6 % LAB HEMETOLOGY METHOD 10/30/2024 3:29 PM [facility] Neutrophils Absolute 7.27(H) 1.50 - 7.00 K/mcL LAB HEMETOLOGY METHOD 10/30/2024 3:29 PM EDT [facility] Lymphocytes Absolute 2.44 1.00 - 5.00 K/mcL LAB HEMETOLOGY METHOD 10/30/2024 3:29 PM EDT [facility] Monocytes Absolute 0.77 0.20 - 1.00 K/mcL LAB HEMETOLOGY METHOD 10/30/2024 3:29 PM EDT [facility] Eosinophils Absolute 0.08 0.00 - 0.50 K/[facility] LAB HEMETOLOGY METHOD 10/30/2024 3:29 PM EDT [facility] Basophils Absolute 0.05 0.00 - 0.20 K/mcL LAB HEMETOLOGY METHOD 10/30/2024 3:29 PM EDT [facility] Immature Granulocytes Absolute 0.06(H) 0.00 - 0.03 K/[facility] LAB HEMETOLOGY METHOD 10/30/2024 3:29 PM EDT [facility] Blood Venous blood specimen / Unknown Venipuncture / Unknown 10/30/2024 3:09 PM EDT 10/30/2024 3:19 PM EDT Mark Woodard MD LAB BLOOD ORDERABLES Final Resu lt [facility] [address] [place] [address], * C-reactive protein (10/30/2024 3:09 PM EDT) C-Reactive Protein <0.29 <=0.50 mg/dL LAB CHEMISTRY METHOD 10/30/2024 8:44 PM EDT [facility] Blood Venous blood specimen / Unknown Venipuncture / Unknown 10/30/2024 3:09 PM EDT 10/30/2024 3:19 PM EDT Eliseo Lacy MD LAB BLOOD ORDERABLES Final Result Performing Organization Address [facility] de Phone Number [facility] [address] [place] [address], [place] [phone] * B-type natriuretic peptide (10/30/2024 3:09 PM EDT) Only the most recent of4 resultswithin the time period is included. BNP 60 <=100 pcg/mL LAB CHEMISTRY METHOD 10/30/2024 4:44 PM EDT [facility] Blood Venous blood specimen / Unknown Venipuncture / Unknown 10/30/2024 3:09 PM EDT 10/30/2024 3:19 PM EDT Mark Woodard MD LAB BLOOD ORDERABLES Final Resu lt Performing Organization Address [facility] de Phone Number [facility] [address] [place] [address], [place] [phone] * (ABNORMAL) Magnesium (10/30/2024 3:09 PM EDT) Only the most recent of3 resultswithin the time period is included. Magnesium 1.7(L) 1.9 - 2.6 mg/dL LAB CHEMISTRY METHOD 10/30/2024 4:24 PM EDT [facility] Blood Venous blood specimen / Unknown Venipuncture / Unknown 10/30/2024 3:09 PM EDT 10/30/2024 3:19 PM EDT us Mark Woodard MD LAB BLOOD ORDERABLES Final Resu lt Performing Organization Address [facility]/ZIP Co de Phone Number [facility] [address] [place] [address], [place] [phone] * (ABNORMAL) Lipase (10/30/2024 3:09 PM EDT) Only the most recent of3 resultswithin the time period is included. Lipase 80(H) 13 - 75 unit/L LAB CHEMISTRY METHOD 10/30/2024 4:40 PM [facility] Blood Venous blood specimen / Unknown Venipuncture / Unknown 10/30/2024 3:09 PM EDT 10/30/2024 3:19 PM EDT us Mark Woodard MD LAB BLOOD ORDERABLES Final Resu lt [facility] [address] [place] [address], * (ABNORMAL) Comprehensive metabolic panel (10/30/2024 3:09 PM EDT) Only the most recent of3 resultswithin the time period is included. Sodium 135 133 - 145 mmol/L LAB CHEMISTRY METHOD 10/30/2024 4:40 PM [facility] Potassium 4.6 3.5 - 5.5 mmol/L LAB CHEMISTRY METHOD 10/30/2024 4:40 PM [facility] Chloride 100 96 - 110 mmol/L LAB CHEMISTRY METHOD 10/30/2024 4:40 PM [facility] CO2 30 21 - 32 mmol/L LAB CHEMISTRY METHOD 10/30/2024 4:40 PM [facility] Anion Gap 5 3 - 11 LAB CHEMISTRY METHOD 10/30/2024 4:40 PM [facility] Glucose 160(H) 70 - 100 mg/dL LAB CHEMISTRY METHOD 10/30/2024 4:40 PM [facility] BUN 26(H) 5 - 25 mg/dL LAB CHEMISTRY METHOD 10/30/2024 4:40 PM [facility] Creatinine 0.99 0.50 - 1.10 mg/dL LAB CHEMISTRY METHOD 10/30/2024 4:40 PM [facility] eGFR 56(L) >=60 mL/min/1. 73m2 LAB CHEMISTRY METHOD 10/30/2024 4:40 PM [facility] Comment:Calculation based on the??Chronic Kidney Disease Epidemiology Collaboration (CKD-EPI) equation refit??without adjustment for race. BUN/Creatinine Ratio 26.3 LAB CHEMISTRY METHOD 10/30/2024 4:40 PM T [facility] Calcium 10.0 8.5 - 10.5 mg/dL LAB CHEMISTRY METHOD 10/30/2024 4:40 PM [facility] AST (SGOT) 6(L) 10 - 42 unit/L LAB CHEMISTRY METHOD 10/30/2024 4:40 PM [facility] ALT (SGPT) 15 10 - 60 unit/L LAB CHEMISTRY METHOD 10/30/2024 4:40 PM [facility] Alkaline Phosphatase 82 42 - 121 unit/L LAB CHEMISTRY METHOD 10/30/2024 4:40 PM [facility] Total Protein 7.6 6.0 - 8.0 g/dL LAB CHEMISTRY METHOD 10/30/2024 4:40 PM [facility] Albumin 3.9 3.2 - 5.0 g/dL LAB CHEMISTRY METHOD 10/30/2024 4:40 PM [facility] Total Bilirubin 0.3 0.0 - 1.4 mg/dL LAB CHEMISTRY METHOD 10/30/2024 4:40 PM [facility] Blood Venous blood specimen / Unknown Venipuncture / Unknown 10/30/2024 3:09 PM EDT 10/30/2024 3:19 PM EDT us Mark Woodard MD LAB BLOOD ORDERABLES Final Resu lt [facility] [address] [place] [address], [place] [phone] * SST tube (09/06/2024 6:52 AM EST) Extra Tube Hold for add-ons. 09/06/2024 9:01 AM EST [facility] Comment:Auto resulted. Blood Venous blood specimen / Unknown Venipuncture / Unknown 09/06/2024 6:52 AM EST 09/06/2024 7:29 AM EST us John Cope MD LAB BLOOD ORDERABLES Final Re sult [facility] [address] [place] [address], [place] [phone] * Activated Partial Thromboplastin Time - STAT (09/05/2024 12:31 PM EST) Pathologist [facility] aPTT 24.1 24.1 - 39.3 sec LAB COAGULATION METHOD 09/05/2024 12:56 PM EST [facility] Blood Venous blood specimen / Unknown Venipuncture / Unknown 09/05/2024 12:31 PM EST 09/05/2024 12:42 PM EST us John Cope MD LAB BLOOD ORDERABLES Final Re sult [facility] [address] [place] [address], [place] [phone] * Prothrombin Time with INR - STAT (09/05/2024 12:31 PM EST) Protime 12.3 10.6 - 13.9 sec LAB COAGULATION METHOD 09/05/2024 12:56 PM [facility] INR 1.0 LAB COAGULATION METHOD 09/05/2024 12:56 PM [facility] Blood Venous blood specimen / Unknown Venipuncture / Unknown 09/05/2024 12:31 PM EST 09/05/2024 12:42 PM EST us John Cope MD LAB BLOOD ORDERABLES Final Re sult Performing Organization Address [facility]/ZIP Co de Phone Number [facility] [address] [place] [address], [place] [phone] * Hepatic Function Panel - STAT (09/05/2024 12:31 PM EST) Total Protein 6.9 6.0 - 8.0 g/dL LAB CHEMISTRY METHOD 09/05/2024 1:20 PM EST [facility] Albumin 3.5 3.2 - 5.0 g/dL LAB CHEMISTRY METHOD 09/05/2024 1:20 PM EST [facility] Total Bilirubin 0.8 0.0 - 1.4 mg/dL LAB CHEMISTRY METHOD 09/05/2024 1:20 PM EST [facility] Bilirubin, Direct 0.2 0.0 - 0.3 mg/dL LAB CHEMISTRY METHOD 09/05/2024 1:20 PM EST [facility] Bilirubin, Indirect 0.6 0.0 - 1.1 mg/dL LAB CHEMISTRY METHOD 09/05/2024 1:20 PM EST [facility] ALT (SGPT) 21 10 - 60 unit/L LAB CHEMISTRY METHOD 09/05/2024 1:20 PM [facility] AST (SGOT) 13 10 - 42 unit/L LAB CHEMISTRY METHOD 09/05/2024 1:20 PM EST [facility] Alkaline Phosphatase 67 42 - 121 unit/L LAB CHEMISTRY METHOD 09/05/2024 1:20 PM [facility] Blood Venous blood specimen / Unknown Venipuncture / Unknown 09/05/2024 12:31 PM EST 09/05/2024 12:42 PM EST John Cope MD LAB BLOOD ORDERABLES Final Re sult Performing Organization Address City/[facility]/ZIP Co de Phone Number [facility] [address] [place] [address], * Lactate (09/05/2024 6:38 AM EST) Only the most recent of3 resultswithin the time period is included. Lactate 1.5 0.4 - 2.0 mmol/L LAB CHEMISTRY METHOD 09/05/2024 7:19 AM EST [facility] Blood Venous blood specimen / Unknown Venipuncture / Unknown 09/05/2024 6:38 AM EST 09/05/2024 6:47 AM EST Andres GARCIA LAB BLOOD ORDERABLES Final Res ult Performing Organization Address [facility] de Phone Number [facility] [address] [place] [address], * Legionella antigen urine, EIA (09/04/2024 12:28 PM EST) Legionella Antigen, Ur Negative Negative 09/04/2024 2:21 PM EST [facility] Urine Urine specimen from urethra / Unknown Non-blood Collection / Unknown 09/04/2024 12:28 PM EST 09/04/2024 12:42 PM EST Narrative [facility] - 09/04/2024 2:21 PM [...] ORDERABLES Final Res ult Performing Organization Address [facility] Co de Phone Number [facility] [address] [place] [address], * Streptococcus pneumoniae antibodies, IgG, 23 serotypes (09/04/2024 11:55 AM EST) [facility] Serotype 1 (1) 1.1 >=1.0 mcg/mL [...] developed and its performance characteristics determined by [facility] in a manner consistent with CLIA requirements. This test has not been cleared or approved by the U.S. Food and Drug Administration. Test Performed by: [facility] [address] [place] [address] Director Food Safety: Iris Ruiz Ph.D.; CLIA# [id number] Blood Venous blood specimen / Unknown Venipuncture / Unknown 09/04/2024 11:55 AM EST 09/04/2024 12:00 PM EST us Laron Maldonado MD LAB BLOOD ORDERABLES Final Res ult MIKAEL LACKEY [address] [place] [address] * CT Chest wo Contrast (09/04/2024 9:19 [...] Signed Date: 09/04/2024 09:41 ET Workstation ID: [id number] Transcribed By: Self Edit Transcribed Date: 09/04/2024 [...] Signed Date: 09/04/2024 09:41 ET Workstation ID: [id number] Transcribed By: Self Edit Transcribed Date: 09/04/2024 09:37 ET [facility] B Jere [facility] CT PROCEDURES Final Result * Blood Culture, Peripheral Draw #2 (09/04/2024 9:10 AM EST) Only the most recent of2 resultswithin the time period is included. [facility] Culture, Blood No growth at 5 days 09/09/2024 10:01 AM EST [facility] Blood Venous blood specimen / Unknown Venipuncture / Unknown 09/04/2024 9:10 AM EST 09/04/2024 9:21 AM EST Osmany Oquendo MD LAB MICROBIOLOGY - [facility] Final Result Performing Organization Address City/[facility]/ZIP Co de Phone Number [facility] [address] [place] [address], [place] [phone] * (ABNORMAL) Hemoglobin A1c (09/04/2024 9:10 AM EST) [facility] Hemoglobin A1C 8.5(H) <6.5 % LAB CHEMISTRY METHOD 09/04/2024 5:11 PM EST [facility] Mean Bld Glu Estim. 197 mg/dL LAB CHEMISTRY METHOD 09/04/2024 5:11 PM [facility] Blood Venous blood specimen / Unknown Venipuncture / Unknown 09/04/2024 9:10 AM EST 09/04/2024 9:26 AM EST Laron Maldonado MD LAB BLOOD ORDERABLES Final Res ult [facility] [address] [place] [address], [place] [phone] * Respiratory virus panel molecular study (09/04/2024 9:02 AM EST) Only the most recent of3 resultswithin the time period is included. [facility] Adenovirus Detection by PCR Not Detected Not Detected LAB MICROBIOLOGY METHOD 09/04/2024 10:45 AM EST [facility] Influenza A PCR Not Detected Not Detected LAB MICROBIOLOGY METHOD 09/04/2024 10:45 AM [facility] Influenza B PCR Not Detected Not Detected LAB MICROBIOLOGY METHOD 09/04/2024 10:45 AM [facility] Coronavirus 229E Not Detected Not Detected LAB MICROBIOLOGY METHOD 09/04/2024 10:45 AM [facility] Coronavirus HKU1 Not Detected Not Detected LAB MICROBIOLOGY METHOD 09/04/2024 10:45 AM [facility] Coronavirus OC43 Not Detected Not Detected LAB MICROBIOLOGY METHOD 09/04/2024 10:45 AM [facility] Coronavirus NL63 Not Detected Not Detected LAB MICROBIOLOGY METHOD 09/04/2024 10:45 AM [facility] Parainfluenza Virus 1 Not Detected Not Detected LAB MICROBIOLOGY METHOD 09/04/2024 10:45 AM [facility] Parainfluenza Virus 2 Not Detected Not Detected LAB MICROBIOLOGY METHOD 09/04/2024 10:45 AM [facility] Parainfluenza Virus 3 Not Detected Not Detected LAB MICROBIOLOGY METHOD 09/04/2024 10:45 AM [facility] Parainfluenza Virus 4 Not Detected Not Detected LAB MICROBIOLOGY METHOD 09/04/2024 10:45 AM [facility] RSV PCR Not Detected Not Detected LAB MICROBIOLOGY METHOD 09/04/2024 10:45 AM [facility] Human Metapneumovirus A and B Not Detected Not Detected LAB MICROBIOLOGY METHOD 09/04/2024 10:45 AM [facility] Rhinovirus/Entero virus Not Detected Not Detected LAB MICROBIOLOGY METHOD 09/04/2024 10:45 AM [facility] Bordetella pertussis Not Detected Not Detected LAB MICROBIOLOGY METHOD 09/04/2024 10:45 AM [facility] Bordetella parapertussis Not Detected Not Detected LAB MICROBIOLOGY METHOD 09/04/2024 10:45 AM [facility] Mycoplasma pneumo by PCR Not Detected Not Detected LAB MICROBIOLOGY METHOD 09/04/2024 10:45 AM EST [facility] Chlamydia pneumoniae Not Detected Not Detected LAB MICROBIOLOGY METHOD 09/04/2024 10:45 AM EST [facility] SARS COV-2 Not Detected Not Detected LAB MICROBIOLOGY METHOD 09/04/2024 10:45 AM EST [facility] Swab Nasopharyngeal structure / Unknown Non-blood Collection / Unknown 09/04/2024 9:02 AM EST 09/04/2024 9:26 AM EST Narrative [facility] - 09/04/2024 10:45 AM EST Testing was performed using the AWAK Respiratory Pathogen PCR Assay. All results must [...] Oquendo MD LAB MICROBIOLOGY - GENERAL ORDE [facility] Final Result [facility] [address] [place] [address], * [place] [facility] 30-74 MINUTES (09/04/2024 8:41 AM [...] PM EST Narrative 07/01/2019 4:51 PM EST [facility] Diagnostic Imaging Department [address] [place], [place] [id number] Patient: ??KRISTIN VALDIVIA ?/Age/Sex: 1940 - 78 - F Unit#: ??[id number] ? Location/Status: ??SPDIMAM/REG CLI ? Mnemonic/Ordering Site: ??DIGSC/SPMAM Ordering Physician: ??GRISELDA VELAZQUEZ MD Dominic Screening Digital - 07/01/19 - 1317 INDICATION: SCREENING COMPARISON: No prior studies are available for comparison. TECHNIQUE: CC and MLO views of the breasts were obtained, using full field digital mammography with 3D tomosynthesis views in the MLO projection. Computer aided detection with the Aisle50.2-CityFibre was employed. Patient reports 2 sisters with [...] date for the next mammogram. ([id number] / [id number]) , ??[id number] Dictating Physician: ??BRODY SMITH MD Electronically Signed by: ??BRODY SMITH MD Dic Date/Time: ??07/01/19 1646 Sign date/Time: ??07/01/19 1651 Procedure Note Brody Smith - 07/13/2022 [facility] Diagnostic Imaging Department [address] [place] [id number] Patient: KRISTIN VALDIVIA/Age/Sex: 1940 - 78 - F Unit#: [id number] Location/Status: SPDIMAM/REG CLI Mnemonic/Ordering Site: [facility] Ordering Physician: GRISELDA VELAZQUEZ MD Dominic Screening Digital - 07/01/19 - 1317 INDICATION: SCREENING COMPARISON: No prior studies are available for comparison. TECHNIQUE: CC and MLO views of the breasts were obtained, using full field digital mammography with 3D tomosynthesis views in the MLO projection. Computer aided detection with the Klinq 7.2-H was employed. Patient reports 2 sisters [...] a target date for the next mammogram. 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
[2024-11-15 08:29] VITALS: BP 148/62; PULSE 96; BMI 23.7
--- NOTE | 2024-11-15 08:29 | A.OFFVIS_ITS ---
Vital Signs 11/15/24 08:29 Height 5 ft 2.8 in Weight 133 lb 2.547 oz BMI 23.7 BP 148/62 H Blood Pressure Location Rt brachial Position Sitting Pulse 96 Pulse Source Pulse Oximeter Intake Visit Reasons: [facility] followup 10/30/24 chest pain Er Medical Technician Required: Yes Er Medical Technician Language: Jig And Fixture Builder Name: voice frankel [id number] Sprinkling System Installer: Sprinkling System Installer Present Allergies amlodipine Adverse Reaction (Intermediate, Verified 11/15/24 08:33) leg edema empagliflozin [From Jardiance] Adverse Reaction (Verified 11/15/24 08:33) vaginal candidiasis Medication List - Last Reconciled 11/15/24 by GEOVANY MathisC [adult diapers As directed] albuterol sulfate 90 mcg/actuation 2 puffs inhalation Q4-6H PRN 30 days alendronate 70 mg PO QWEEK apixaban (Eliquis) 5 mg PO BID 90 days blood sugar diagnostic TEST 3 TIMES DAILY blood-glucose meter (Posmetrics Ultra2 Meter) As directed- TID cane As directed cholecalciferol (vitamin D3) 25 mcg PO DAILY 90 days commode (bedside commode) As directed dulaglutide (Trulicity) 1.5 mg subcut QWEEK dulaglutide (Trulicity) 1.5 mg (0.5 mL) subcut QWEEK 28 days fluticasone propion-salmeterol 100-50 mcg/dose (Wixela Inhub) 1 inh inhalation BID gabapentin 300 mg PO BEDTIME isosorbide mononitrate ER 30 mg PO DAILY 90 days isosorbide mononitrate ER 60 mg PO DAILY levalbuterol tartrate 45 mcg/actuation (Xopenex HFA) 2 puffs inhalation Q4-6H PRN losartan 25 mg PO DAILY 90 days magnesium oxide 400 mg PO DAILY magnesium oxide 400 mg PO DAILY 90 days metformin 1,000 mg PO BID 90 days metoprolol succinate ER 100 mg PO DAILY 90 days omeprazole 20 mg PO DAILY 90 days [One touch Ultra Blue test strips Use 3 times a day] rosuvastatin 10 mg PO DAILY 90 days tizanidine 2 mg PO Q8H PRN 30 days underpads (Certainty Underpads) Use 1 to 2 times a day walker with brakes and seat [facility]PI [facility] chest pain: Details: Kristin hall is an 84-year-old female past medical history of hypertension, hyperlipidemia, diabetes, paroxysmal atrial fibrillation, sleep apnea who was recently seen at [facility] with reports of chest discomfort and hypertension. She ruled out for ACS. They did order an outpatient nuclear stress test which is scheduled for next week. There was no change in her home medications. Today she reports that she has been doing well since her hospital discharge. She will notice brief heart palpitations at times that last sec. When she has the palpitation she notices discomfort in her chest. She has not on by physical activity. She has no concerning shortness of breath, PND, orthopnea or edema. No lightheadedness, presyncope, syncope, falls. She is taking her medications as directed. No bleeding issues reported. Daughter is present. [facility] Medical History COPD (chronic obstructive pulmonary disease) Left shoulder pain Hyperlipidemia LDL goal <100 Abnormal SPEP Vitamin D deficiency Osteoporosis Age related osteoporosis Physical exam Hypomagnesemia Atrial fibrillation with rapid ventricular response Urinary incontinence Abnormal EKG Screening for osteoporosis Neuropathy Microalbuminuria JONNY (obstructive sleep apnea) Left shoulder pain Anemia GERD (gastroesophageal reflux disease) Coronary artery disease Hypertension Type 2 diabetes mellitus with hyperglycemia Surgical History History of surgery on arm Hx of dilation and curettage Hx of breast biopsy Family History Mother Diabetes mellitus Father No problems noted. Sister Lymphoma Breast cancer Brother Colon cancer Social History Household Members: Family Housing: House Are you a primary foster care case manager to a significant other at home: No Do you presently have visiting nurse or other home services: Yes (insurance nurse) Alcohol intake: never Patient Tobacco Use Status: Never used Tobacco e-Cigarette/Vaping Use: Never Used Second Hand Smoke Exposure: No service: No Current occupational status: disabled Cognitive needs: No Hearing needs: No Vision needs: Yes Review of Systems Const All systems reviewed & are unremarkable except as noted in HPI and below ENT Denies dizziness Card Details: palpitations Reports chest pain, Denies chest pain at rest, Denies chest pain with activity, Reports rapid heart rate, Denies pedal edema, Denies edema, Denies leg edema, Denies lightheadedness, Denies palpitations, Denies dyspnea, Denies dyspnea on exertion and Denies orthopnea Resp Denies cough, Denies dyspnea and Denies dyspnea on exertion GI Denies hematochezia and Denies change in stool character Musc Denies abnormal gait, Denies limited range of motion, Denies muscle cramps, Denies muscle weakness, Denies numbness, Denies radiating pain into limb, Denies stiffness and Denies tingling Neuro Denies abnormal gait, Denies dizziness, Denies numbness and Denies tingling Endo Denies palpitations Physical Exam Vital Signs: Last Vital Signs Pulse 96 11/15/24 08:29 BP 148/62 H 11/15/24 08:29 BMI result Body Mass Index 23.7 Const General: cooperative, healthy appearing, comfortable and no acute distress Orientation/consciousness: patient oriented x3 Neck Neck: Yes normal visual inspection Resp Effort & Inspection: normal respiratory effort Auscultation: clear to auscultation bilaterally, no rales, no rhonchi and no wheezes Cardio Rate: regular rate Rhythm: regular rhythm Heart sounds: S1 normal heart sound present, S2 normal heart sound present, no gallops, no murmurs and no rubs Neuro General: patient oriented x3 Extrem General: Yes normal to inspection, No no pedal edema and No calf tenderness Psych Appearance: grossly normal Mental Status: mental status grossly normal Speech and movement: Normal speech and movement present Assessment & Plan Assessment & Plan (1) PAF (paroxysmal atrial fibrillation): Code(s): I48.0 - Paroxysmal atrial fibrillation Category: Medical Plan: History of paroxysmal atrial fibrillation as treated with heart rate control. She is on metoprolol for rate control. She is on Eliquis for anticoagulation. Recent reports of heart palpitations and discomfort in her chest at [facility] evaluation. EKGs reviewed and they do show only sinus rhythm. It sounds like she is having paroxysmal AFib episodes. Pulse rate and blood pressure are elevated today. Will add an additional metoprolol XL 50 mg daily we taken in the evening. Continue metoprolol XL 100 mg in the a.m.. Will check a Holter monitor to assess for PAF and heart rate. Will check an echocardiogram to assess for structural disease. Cardiology follow-up in 1 month, sooner if needed. (2) Chest discomfort: Code(s): R07.89 - Other chest pain Category: Medical Plan: Reports of chest discomfort with her heart palpitations. She was recently evaluated at [facility] for her chest discomfort symptom and ruled out for ACS. They did order an outpatient nuclear stress test which is scheduled for next week. (3) Hypertension: Code(s): I10 - Essential (primary) hypertension Category: Medical Qualifiers: Hypertension type: essential hypertension Qualified Code(s): I10 - Essential (primary) hypertension Plan: Blood pressure goal less than 130/80. Elevated today. Increasing metoprolol. (4) Hyperlipidemia LDL goal <70: Code(s): E78.5 - Hyperlipidemia, unspecified Category: Medical Plan: [place] LDL goal less than 70 in patient with diabetes. Labs done 09/21/2024 showed LDL 42. Continue rosuvastatin. (5) Hospital discharge follow-up: Code(s): Z09 - Encounter for follow-up examination after completed treatment for conditions other than malignant neoplasm Category: Medical Plan: [facility] discharge summary reviewed. Plan Time spent on chart review, documentation, interview and assessment Orders: Orders CA echo transthoracic complete Today LATRICE Mathis I48.91 - Unspecified atrial fibrillation, R07.89 - Other chest pain ECG 3 day holter monitor Today LATRICE Mathis I48.91 - Unspecified atrial fibrillation Medications: New metoprolol succinate ER Take 1 tablet each night Continue to take Metoprolol xl 100mg daily in am 50 mg PO DAILY 30 tabs 5RF LATRICE Mathis Changed From gabapentin 200 mg (2 x 100 mg) PO BEDTIME 90 days 180 caps 1RF To gabapentin 300 mg PO BEDTIME Pam Montoya MD Coding Level of Care Code Est Pt Level 4 (75822) Complex EM visit Add On G2211 Diagnoses PAF (paroxysmal atrial fibrillation) I48.0 Chest discomfort R07.89 Essential hypertension I10 Hypertension type: essential hypertension Hyperlipidemia LDL goal <70 E78.5 Hospital discharge follow-up Z09 Time Spent (min) 28
== END 2024-11-15 09:27 | disposition home or self-care (01) ==
LOC: HO.HCS 08:18
PROVIDERS: PCP Internal Medicine; Visit Provider Nurse Practitioner Family
DX: I48.0 Paroxysmal atrial fibrillation (principal); R07.89 Other chest pain; I10 Essential (primary) hypertension; E78.5 Hyperlipidemia, unspecified; Z09 Encounter for follow-up examination after completed treatment for conditions other than malignant neoplasm
CPT/HCPCS: 99214; G2211

== ENCOUNTER → 2024-11-15 09:28 | Outpatient (REF) | payer MEDICARE, OTHER, MEDICAID, SELFPAY ==
--- NOTE | 2024-11-15 09:32 | HM_ITS ---
* Total monitoring time 3 days. * Underlying rhythm is sinus with an average rate of 80/Min. * Rare supraventricular ectopy. * Rare ventricular ectopy. * No significant pauses or high-grade AV blocks. * Patient markers used with sinus rhythm, sinus tachycardia, PVC. * Irregular heartbeat in patient diary correlates with sinus rhythm, mild sinus tachycardia, PVC. Chest pain correlates with sinus rhythm. MTDD
--- OUTSIDE RECORDS SUMMARY | 2024-11-15 09:40 | XMS_ITS | Clinical Summary ---
Author Organization [email or web address] [facility] Address [address] [place] [address] Care Team Providers Care Filter Tank Operator Name Role Phone Pam Wills MD Primary [...] age to complete this topic Care Teams Filter Tank Operator Relationship Specialty Start Date End Date Pam Wills MD [address] [facility] [address], [address] [facility] Physician Associ D/B/A: [facility] [place] [id number] PCP - General Internal Medicine 02/02/22
--- OUTSIDE RECORDS SUMMARY | 2024-11-15 09:40 | XMS_ITS | Encounter Summary ---
Author Organization [facility] Address [address] [facility] [address] [place] [address] Phone Care Team Providers Care Emergency Communications Operator Name Role Phone Pam Wills MD Primary Care Provider [phone] Encounter Details Date Type Department Care Team (Late Contact Info) Description 08/03/2021 Documentation Only [facility] [address] [facility] [address] [place] [id number] Jaylon Barreto MD [address] [address] Social History Tobacco Use Types [...] Visit [facility] [address] [address] Jaylon Barreto MD [address] [address] documented as of this encounter Visit Diagnoses Not on filedocumented in this encounter Care Teams Emergency Communications Operator Relationship Specialty Start Date End Date Pam Wills MD [address] [place], [place] PCP - General Internal Medicine 05/11/21 documented as of this encounter
--- OUTSIDE RECORDS SUMMARY | 2024-11-15 09:40 | XMS_ITS | Clinical Summary ---
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 Govea on November 2024 Diabetes mellitus type 2 wit h neurological manifestations ([facility] V24, [facility] V28) 05/03/2017 Hyperlipidemia 05/03/2017 Hypertension 05/03/2017 Allergic rhinitis 04/25/2017 Asthma-COPD overlap syndrome ([facility] V24, [facility] V28) 04/25/2017 Overview (04/03/2024): Last [...] unspecified organism, unspecified acute renal failure type ([facility] V24, [facility] V28) 09/04/2024 09/06/2024 Encounters Date Type Department Care Team Description 10/30/2024 5:00 PM EDT - 10/31/2024 11:43 AM EDT Hospital Encounter [facility] [address] [place] [address] Mark Woodard MD Sondhi, Vikram, MD Jones, Christopher, MD Santoyo-Pachec o, Omar D, MD Chest pain at rest (Primary Dx) Discharge Disposition: [place] [facility] [place] [address] [address] [place] Diaz [place] Fitting for DME ([employer]) 10/22/2024 11:30 AM EDT [facility] [address] [address] Fco Parsons MD Asthma-COPD overlap syndrome ([facility] V24, [facility] V28) (Primary Dx); PAKO (mycobacterium avium-intracellulare) ([facility] V24, [facility] V28) 09/04/2024 8:45 AM EST - 09/06/2024 12:42 PM [facility] [address] [place] [phone] Osmany Oquendo MD Bukalo, Nermina, MD Zipagan, James T, MD Sepsis with acute renal failure without septic shock, due to unspecified organism, unspecified acute renal failure type ([facility] V24, [facility] V28) (Primary Dx) Discharge Disposition: [place] [facility] 08/28/2024 5:53 PM EST - 08/29/2024 1:35 AM [facility] Emergency [address] [place] [phone] COPD exacerbation ([facility] V24, [facility] V28) (Primary Dx) Discharge Disposition: Home or Self Care 08/27/2024 2:00 AM EST - 08/27/2024 3:33 AM [facility] Emergency [address] [place] [phone] Marshall Smith MD Pneumonia of right middle [...] DX:Diabetes mellitus type 2 with neurological manifestations ([facility]) Hyperlipidemia 05/03/2017 DX:Hyperlipidemi a Hypertension 05/03/2017 DX:Hypertension [...] Team (Late st Contact Info) Description 11/20/2024 7:30 AM EDT Ancillary Procedure [facility] [address] [place] [address] 12/03/2024 1:30 PM EDT Office Visit Infectious Disease - [place] 175 [facility] [address] [place] [address] Natalie Govea MD [address] [address] 05/08/2025 10:45 AM EDT Office Visit Pulmonolgy - [place] 175 [facility] [address] [place] [address] Fco Parsons MD [address] [address] Health Maintenance Due Date Last Done Comments [...] ECG 12-LEAD STAT 09/04/2024 8:56 AM EST [facility] 30-74 MINUTES Routine 09/04/2024 8:41 [...] LAB CHEMISTRY METHOD 10/31/2024 9:33 AM EDT [facility] Blood Venous blood specimen / Unknown Venipuncture / Unknown 10/31/2024 8:48 AM EDT 10/31/2024 8:55 AM EDT Narrative [facility] - 10/31/2024 9:33 AM EDT High levels of biotin in samples may falsely decrease hsTroponin values. ??Use caution when interpreting hsTroponin results in patients taking biotin who exhibit renal impairment (eGFR <60) or in patients taking more than 20 mg/day of biotin. us Vineet Mcclellan MD LAB BLOOD ORDERABLES F inal Result [facility] [address] [place] [address], [place] [phone] * (ABNORMAL) POCT Glucose, blood (10/31/2024 7:30 AM EDT) Only the most recent of13 resultswithin the time period is included. Pathologist [facility] Glucose POCT 116(H) 70 - 100 mg/dL 10/31/2024 7:31 AM EDT [facility] Blood Capillary blood specimen / Unknown 10/31/2024 7:30 AM EDT 10/31/2024 7:32 AM EDT us Vineet Mcclellan MD LAB POINT OF C ARE TEST DOCKED DEVICE UNSOLICITED RESULTS Final Result Performing Organization Address [facility]/ZIP Co de Phone Number [facility] [address] [place] [address], [place] [phone] * (ABNORMAL) Complete blood count (10/31/2024 5:20 AM EDT) Only the most recent of2 resultswithin the time period is included. [facility] WBC 7.5 4.8 - 10.8 K/mcL LAB HEMETOLOGY METHOD 10/31/2024 6:24 AM EDT [facility] RBC 4.50 3.80 - 4.80 M/mcL LAB HEMETOLOGY METHOD 10/31/2024 6:24 AM EDT [facility] Hemoglobin 11.4(L) 11.5 - 16.0 g/dL LAB HEMETOLOGY METHOD 10/31/2024 6:24 AM EDT [facility] Hematocrit 36.3 35.0 - 47.0 % LAB HEMETOLOGY METHOD 10/31/2024 6:24 AM EDT [facility] MCV 80.1 79.0 - 98.0 FL LAB HEMETOLOGY METHOD 10/31/2024 6:24 AM EDT [facility] MCH 25.2(L) 27.0 - 32.0 pcg LAB HEMETOLOGY METHOD 10/31/2024 6:24 AM EDT [facility] MCHC 31.4(L) 32.0 - 37.0 g/dL LAB HEMETOLOGY METHOD 10/31/2024 6:24 AM EDT [facility] RDW 13.5 11.0 - 15.0 % LAB HEMETOLOGY METHOD 10/31/2024 6:24 AM EDT [facility] Platelets 274 130 - 400 K/mcL LAB HEMETOLOGY METHOD 10/31/2024 6:24 AM EDT [facility] MPV 9.9 7.0 - 11.0 FL LAB HEMETOLOGY METHOD 10/31/2024 6:24 AM EDT [facility] NRBC 0.0 <1.0 % LAB HEMETOLOGY METHOD 10/31/2024 6:24 AM EDT [facility] NRBC Absolute 0.00 <0.10 K/mcL LAB HEMETOLOGY METHOD 10/31/2024 6:24 AM [facility] Blood Venous blood specimen / Unknown Venipuncture / Unknown 10/31/2024 5:20 AM EDT 10/31/2024 5:54 AM EDT us Rodger De La O MD LAB BLOOD ORDERABLES Final Resu lt [facility] [address] [place] [address], * (ABNORMAL) Basic metabolic panel (10/31/2024 5:20 AM EDT) Only the most recent of3 resultswithin the time period is included. Sodium 138 133 - 145 mmol/L LAB CHEMISTRY METHOD 10/31/2024 6:43 AM EDT [facility] Potassium 4.2 3.5 - 5.5 mmol/L LAB CHEMISTRY METHOD 10/31/2024 6:43 AM [facility] Chloride 104 96 - 110 mmol/L LAB CHEMISTRY METHOD 10/31/2024 6:43 AM [facility] CO2 33(H) 21 - 32 mmol/L LAB CHEMISTRY METHOD 10/31/2024 6:43 AM [facility] Anion Gap 1(L) 3 - 11 LAB CHEMISTRY METHOD 10/31/2024 6:43 AM [facility] Glucose 106(H) 70 - 100 mg/dL LAB CHEMISTRY METHOD 10/31/2024 6:43 AM [facility] BUN 25 5 - 25 mg/dL LAB CHEMISTRY METHOD 10/31/2024 6:43 AM [facility] Creatinine 0.84 0.50 - 1.10 mg/dL LAB CHEMISTRY METHOD 10/31/2024 6:43 AM [facility] eGFR 68 >=60 mL/min/1. 73m2 LAB CHEMISTRY METHOD 10/31/2024 6:43 AM [facility] Comment:Calculation based on the??Chronic Kidney Disease Epidemiology Collaboration (CKD-EPI) equation refit??without adjustment for race. BUN/Creatinine Ratio 29.8 LAB CHEMISTRY METHOD 10/31/2024 6:43 AM [facility] Calcium 9.6 8.5 - 10.5 mg/dL LAB CHEMISTRY METHOD 10/31/2024 6:43 AM [facility] Blood Venous blood specimen / Unknown Venipuncture / Unknown 10/31/2024 5:20 AM EDT 10/31/2024 5:55 AM EDT us Rodger De La O MD LAB BLOOD ORDERABLES Final Resu lt [facility] [address] [place] [address], [place] [phone] * XR Chest 2 Views (10/30/2024 6:13 [...] Signed Date: 10/31/2024 11:27 ET Workstation ID: [id number] Transcribed By: Self Edit Transcribed Date: 10/31/2024 [...] Signed Date: 10/31/2024 11:27 ET Workstation ID: [id number] Transcribed By: Self Edit Transcribed Date: 10/31/2024 [...] GEMUSE QTc 438 ms GEMUSE P Wave [place] 70 degrees GEMUSE R [place] 57 degrees GEMUSE T [place] 60 degrees GEMUSE ECG Interpretation Normal sinus [...] resultswithin the time period is included. Pathologist [facility] WBC 10.7 4.8 - 10.8 K/mcL LAB HEMETOLOGY METHOD 10/30/2024 3:29 PM EDT [facility] RBC 4.70 3.80 - 4.80 M/mcL LAB HEMETOLOGY METHOD 10/30/2024 3:29 PM EDT [facility] Hemoglobin 12.0 11.5 - 16.0 g/dL LAB HEMETOLOGY METHOD 10/30/2024 3:29 PM EDT [facility] Hematocrit 38.3 35.0 - 47.0 % LAB HEMETOLOGY METHOD 10/30/2024 3:29 PM EDT [facility] MCV 81.0 79.0 - 98.0 FL LAB HEMETOLOGY METHOD 10/30/2024 3:29 PM EDT [facility] MCH 25.4(L) 27.0 - 32.0 pcg LAB HEMETOLOGY METHOD 10/30/2024 3:29 PM [facility] MCHC 31.3(L) 32.0 - 37.0 g/dL LAB HEMETOLOGY METHOD 10/30/2024 3:29 PM [facility] RDW 13.3 11.0 - 15.0 % LAB HEMETOLOGY METHOD 10/30/2024 3:29 PM [facility] Platelets 293 130 - 400 K/mcL LAB HEMETOLOGY METHOD 10/30/2024 3:29 PM [facility] MPV 10.0 7.0 - 11.0 FL LAB HEMETOLOGY METHOD 10/30/2024 3:29 PM [facility] NRBC 0.0 <1.0 % LAB HEMETOLOGY METHOD 10/30/2024 3:29 PM [facility] NRBC Absolute 0.00 <0.10 K/mcL LAB HEMETOLOGY METHOD 10/30/2024 3:29 PM [facility] Neutrophils Relative 68.1 % LAB HEMETOLOGY METHOD 10/30/2024 3:29 PM [facility] Lymphocytes Relative 22.9 % LAB HEMETOLOGY METHOD 10/30/2024 3:29 PM [facility] Monocytes Relative 7.2 % LAB HEMETOLOGY METHOD 10/30/2024 3:29 PM [facility] Eosinophils Relative 0.7 % LAB HEMETOLOGY METHOD 10/30/2024 3:29 PM [facility] Basophils Relative 0.5 % LAB HEMETOLOGY METHOD 10/30/2024 3:29 PM [facility] Immature Granulocytes Relative 0.6 % LAB HEMETOLOGY METHOD 10/30/2024 3:29 PM [facility] Neutrophils Absolute 7.27(H) 1.50 - 7.00 K/mcL LAB HEMETOLOGY METHOD 10/30/2024 3:29 PM EDT [facility] Lymphocytes Absolute 2.44 1.00 - 5.00 K/mcL LAB HEMETOLOGY METHOD 10/30/2024 3:29 PM EDT [facility] Monocytes Absolute 0.77 0.20 - 1.00 K/mcL LAB HEMETOLOGY METHOD 10/30/2024 3:29 PM EDT [facility] Eosinophils Absolute 0.08 0.00 - 0.50 K/[facility] LAB HEMETOLOGY METHOD 10/30/2024 3:29 PM EDT [facility] Basophils Absolute 0.05 0.00 - 0.20 K/mcL LAB HEMETOLOGY METHOD 10/30/2024 3:29 PM EDT [facility] Immature Granulocytes Absolute 0.06(H) 0.00 - 0.03 K/[facility] LAB HEMETOLOGY METHOD 10/30/2024 3:29 PM EDT [facility] Blood Venous blood specimen / Unknown Venipuncture / Unknown 10/30/2024 3:09 PM EDT 10/30/2024 3:19 PM EDT Mark Woodard MD LAB BLOOD ORDERABLES Final Resu lt [facility] [address] [place] [address], * C-reactive protein (10/30/2024 3:09 PM EDT) C-Reactive Protein <0.29 <=0.50 mg/dL LAB CHEMISTRY METHOD 10/30/2024 8:44 PM EDT [facility] Blood Venous blood specimen / Unknown Venipuncture / Unknown 10/30/2024 3:09 PM EDT 10/30/2024 3:19 PM EDT Eliseo Lacy MD LAB BLOOD ORDERABLES Final Result Performing Organization Address [facility] de Phone Number [facility] [address] [place] [address], [place] [phone] * B-type natriuretic peptide (10/30/2024 3:09 PM EDT) Only the most recent of4 resultswithin the time period is included. BNP 60 <=100 pcg/mL LAB CHEMISTRY METHOD 10/30/2024 4:44 PM EDT [facility] Blood Venous blood specimen / Unknown Venipuncture / Unknown 10/30/2024 3:09 PM EDT 10/30/2024 3:19 PM EDT Mark Woodard MD LAB BLOOD ORDERABLES Final Resu lt Performing Organization Address [facility] de Phone Number [facility] [address] [place] [address], [place] [phone] * (ABNORMAL) Magnesium (10/30/2024 3:09 PM EDT) Only the most recent of3 resultswithin the time period is included. Magnesium 1.7(L) 1.9 - 2.6 mg/dL LAB CHEMISTRY METHOD 10/30/2024 4:24 PM EDT [facility] Blood Venous blood specimen / Unknown Venipuncture / Unknown 10/30/2024 3:09 PM EDT 10/30/2024 3:19 PM EDT us Mark Woodard MD LAB BLOOD ORDERABLES Final Resu lt Performing Organization Address [facility]/ZIP Co de Phone Number [facility] [address] [place] [address], [place] [phone] * (ABNORMAL) Lipase (10/30/2024 3:09 PM EDT) Only the most recent of3 resultswithin the time period is included. Lipase 80(H) 13 - 75 unit/L LAB CHEMISTRY METHOD 10/30/2024 4:40 PM [facility] Blood Venous blood specimen / Unknown Venipuncture / Unknown 10/30/2024 3:09 PM EDT 10/30/2024 3:19 PM EDT us Mark Woodard MD LAB BLOOD ORDERABLES Final Resu lt [facility] [address] [place] [address], * (ABNORMAL) Comprehensive metabolic panel (10/30/2024 3:09 PM EDT) Only the most recent of3 resultswithin the time period is included. Sodium 135 133 - 145 mmol/L LAB CHEMISTRY METHOD 10/30/2024 4:40 PM [facility] Potassium 4.6 3.5 - 5.5 mmol/L LAB CHEMISTRY METHOD 10/30/2024 4:40 PM [facility] Chloride 100 96 - 110 mmol/L LAB CHEMISTRY METHOD 10/30/2024 4:40 PM [facility] CO2 30 21 - 32 mmol/L LAB CHEMISTRY METHOD 10/30/2024 4:40 PM [facility] Anion Gap 5 3 - 11 LAB CHEMISTRY METHOD 10/30/2024 4:40 PM [facility] Glucose 160(H) 70 - 100 mg/dL LAB CHEMISTRY METHOD 10/30/2024 4:40 PM [facility] BUN 26(H) 5 - 25 mg/dL LAB CHEMISTRY METHOD 10/30/2024 4:40 PM [facility] Creatinine 0.99 0.50 - 1.10 mg/dL LAB CHEMISTRY METHOD 10/30/2024 4:40 PM [facility] eGFR 56(L) >=60 mL/min/1. 73m2 LAB CHEMISTRY METHOD 10/30/2024 4:40 PM [facility] Comment:Calculation based on the??Chronic Kidney Disease Epidemiology Collaboration (CKD-EPI) equation refit??without adjustment for race. BUN/Creatinine Ratio 26.3 LAB CHEMISTRY METHOD 10/30/2024 4:40 PM T [facility] Calcium 10.0 8.5 - 10.5 mg/dL LAB CHEMISTRY METHOD 10/30/2024 4:40 PM [facility] AST (SGOT) 6(L) 10 - 42 unit/L LAB CHEMISTRY METHOD 10/30/2024 4:40 PM [facility] ALT (SGPT) 15 10 - 60 unit/L LAB CHEMISTRY METHOD 10/30/2024 4:40 PM [facility] Alkaline Phosphatase 82 42 - 121 unit/L LAB CHEMISTRY METHOD 10/30/2024 4:40 PM [facility] Total Protein 7.6 6.0 - 8.0 g/dL LAB CHEMISTRY METHOD 10/30/2024 4:40 PM [facility] Albumin 3.9 3.2 - 5.0 g/dL LAB CHEMISTRY METHOD 10/30/2024 4:40 PM [facility] Total Bilirubin 0.3 0.0 - 1.4 mg/dL LAB CHEMISTRY METHOD 10/30/2024 4:40 PM [facility] Blood Venous blood specimen / Unknown Venipuncture / Unknown 10/30/2024 3:09 PM EDT 10/30/2024 3:19 PM EDT us Mark Woodard MD LAB BLOOD ORDERABLES Final Resu lt [facility] [address] [place] [address], [place] [phone] * SST tube (09/06/2024 6:52 AM EST) Extra Tube Hold for add-ons. 09/06/2024 9:01 AM EST [facility] Comment:Auto resulted. Blood Venous blood specimen / Unknown Venipuncture / Unknown 09/06/2024 6:52 AM EST 09/06/2024 7:29 AM EST us John Cope MD LAB BLOOD ORDERABLES Final Re sult [facility] [address] [place] [address], [place] [phone] * Activated Partial Thromboplastin Time - STAT (09/05/2024 12:31 PM EST) Pathologist [facility] aPTT 24.1 24.1 - 39.3 sec LAB COAGULATION METHOD 09/05/2024 12:56 PM EST [facility] Blood Venous blood specimen / Unknown Venipuncture / Unknown 09/05/2024 12:31 PM EST 09/05/2024 12:42 PM EST us John Cope MD LAB BLOOD ORDERABLES Final Re sult [facility] [address] [place] [address], [place] [phone] * Prothrombin Time with INR - STAT (09/05/2024 12:31 PM EST) Protime 12.3 10.6 - 13.9 sec LAB COAGULATION METHOD 09/05/2024 12:56 PM [facility] INR 1.0 LAB COAGULATION METHOD 09/05/2024 12:56 PM [facility] Blood Venous blood specimen / Unknown Venipuncture / Unknown 09/05/2024 12:31 PM EST 09/05/2024 12:42 PM EST us John Cope MD LAB BLOOD ORDERABLES Final Re sult Performing Organization Address [facility]/ZIP Co de Phone Number [facility] [address] [place] [address], [place] [phone] * Hepatic Function Panel - STAT (09/05/2024 12:31 PM EST) Total Protein 6.9 6.0 - 8.0 g/dL LAB CHEMISTRY METHOD 09/05/2024 1:20 PM EST [facility] Albumin 3.5 3.2 - 5.0 g/dL LAB CHEMISTRY METHOD 09/05/2024 1:20 PM EST [facility] Total Bilirubin 0.8 0.0 - 1.4 mg/dL LAB CHEMISTRY METHOD 09/05/2024 1:20 PM EST [facility] Bilirubin, Direct 0.2 0.0 - 0.3 mg/dL LAB CHEMISTRY METHOD 09/05/2024 1:20 PM EST [facility] Bilirubin, Indirect 0.6 0.0 - 1.1 mg/dL LAB CHEMISTRY METHOD 09/05/2024 1:20 PM EST [facility] ALT (SGPT) 21 10 - 60 unit/L LAB CHEMISTRY METHOD 09/05/2024 1:20 PM [facility] AST (SGOT) 13 10 - 42 unit/L LAB CHEMISTRY METHOD 09/05/2024 1:20 PM EST [facility] Alkaline Phosphatase 67 42 - 121 unit/L LAB CHEMISTRY METHOD 09/05/2024 1:20 PM [facility] Blood Venous blood specimen / Unknown Venipuncture / Unknown 09/05/2024 12:31 PM EST 09/05/2024 12:42 PM EST John Cope MD LAB BLOOD ORDERABLES Final Re sult Performing Organization Address City/[facility]/ZIP Co de Phone Number [facility] [address] [place] [address], * Lactate (09/05/2024 6:38 AM EST) Only the most recent of3 resultswithin the time period is included. Lactate 1.5 0.4 - 2.0 mmol/L LAB CHEMISTRY METHOD 09/05/2024 7:19 AM EST [facility] Blood Venous blood specimen / Unknown Venipuncture / Unknown 09/05/2024 6:38 AM EST 09/05/2024 6:47 AM EST Andres GARCIA LAB BLOOD ORDERABLES Final Res ult Performing Organization Address [facility] de Phone Number [facility] [address] [place] [address], * Legionella antigen urine, EIA (09/04/2024 12:28 PM EST) Legionella Antigen, Ur Negative Negative 09/04/2024 2:21 PM EST [facility] Urine Urine specimen from urethra / Unknown Non-blood Collection / Unknown 09/04/2024 12:28 PM EST 09/04/2024 12:42 PM EST Narrative [facility] - 09/04/2024 2:21 PM [...] ORDERABLES Final Res ult Performing Organization Address [facility] Co de Phone Number [facility] [address] [place] [address], * Streptococcus pneumoniae antibodies, IgG, 23 serotypes (09/04/2024 11:55 AM EST) [facility] Serotype 1 (1) 1.1 >=1.0 mcg/mL 09/10/2024 [...] and its performance characteristics determined by [facility] in a manner consistent with CLIA requirements. This test has not been cleared or approved by the U.S. Food and Drug Administration. Test Performed by: [facility] [address] [place] [address] National Sales Executive: Iris Ruiz Ph.D.; CLIA# [id number] Blood Venous blood specimen / Unknown Venipuncture / Unknown 09/04/2024 11:55 AM EST 09/04/2024 12:00 PM EST us Laron Maldonado MD LAB BLOOD ORDERABLES Final Res ult MIKAEL LACKEY [address] [place] [address] * CT Chest wo Contrast (09/04/2024 9:19 [...] Signed Date: 09/04/2024 09:41 ET Workstation ID: [id number] Transcribed By: Self Edit Transcribed Date: 09/04/2024 [...] Signed Date: 09/04/2024 09:41 ET Workstation ID: [id number] Transcribed By: Self Edit Transcribed Date: 09/04/2024 09:37 ET [facility] B Jere [facility] CT PROCEDURES Final Result * Blood Culture, Peripheral Draw #2 (09/04/2024 9:10 AM EST) Only the most recent of2 resultswithin the time period is included. [facility] Culture, Blood No growth at 5 days 09/09/2024 10:01 AM EST [facility] Blood Venous blood specimen / Unknown Venipuncture / Unknown 09/04/2024 9:10 AM EST 09/04/2024 9:21 AM EST Osmany Oquendo MD LAB MICROBIOLOGY - [facility]AL [facility] Final Result Performing Organization Address City/[facility]/ZIP Co de Phone Number [facility] [address] [place] [address], [place] [phone] * (ABNORMAL) Hemoglobin A1c (09/04/2024 9:10 AM EST) [facility] Hemoglobin A1C 8.5(H) <6.5 % LAB CHEMISTRY METHOD 09/04/2024 5:11 PM EST [facility] Mean Bld Glu Estim. 197 mg/dL LAB CHEMISTRY METHOD 09/04/2024 5:11 PM [facility] Blood Venous blood specimen / Unknown Venipuncture / Unknown 09/04/2024 9:10 AM EST 09/04/2024 9:26 AM EST Laron Maldonado MD LAB BLOOD ORDERABLES Final Res ult [facility] [address] [place] [address], [place] [phone] * Respiratory virus panel molecular study (09/04/2024 9:02 AM EST) Only the most recent of3 resultswithin the time period is included. [facility] Adenovirus Detection by PCR Not Detected Not Detected LAB MICROBIOLOGY METHOD 09/04/2024 10:45 AM EST [facility] Influenza A PCR Not Detected Not Detected LAB MICROBIOLOGY METHOD 09/04/2024 10:45 AM [facility] Influenza B PCR Not Detected Not Detected LAB MICROBIOLOGY METHOD 09/04/2024 10:45 AM [facility] Coronavirus 229E Not Detected Not Detected LAB MICROBIOLOGY METHOD 09/04/2024 10:45 AM [facility] Coronavirus HKU1 Not Detected Not Detected LAB MICROBIOLOGY METHOD 09/04/2024 10:45 AM [facility] Coronavirus OC43 Not Detected Not Detected LAB MICROBIOLOGY METHOD 09/04/2024 10:45 AM [facility] Coronavirus NL63 Not Detected Not Detected LAB MICROBIOLOGY METHOD 09/04/2024 10:45 AM [facility] Parainfluenza Virus 1 Not Detected Not Detected LAB MICROBIOLOGY METHOD 09/04/2024 10:45 AM [facility] Parainfluenza Virus 2 Not Detected Not Detected LAB MICROBIOLOGY METHOD 09/04/2024 10:45 AM [facility] Parainfluenza Virus 3 Not Detected Not Detected LAB MICROBIOLOGY METHOD 09/04/2024 10:45 AM [facility] Parainfluenza Virus 4 Not Detected Not Detected LAB MICROBIOLOGY METHOD 09/04/2024 10:45 AM [facility] [facility] RSV PCR Not Detected Not Detected LAB MICROBIOLOGY METHOD 09/04/2024 10:45 AM [facility] Human Metapneumovirus A and B Not Detected Not Detected LAB MICROBIOLOGY METHOD 09/04/2024 10:45 AM [facility] Rhinovirus/Entero virus Not Detected Not Detected LAB MICROBIOLOGY METHOD 09/04/2024 10:45 AM [facility] Bordetella pertussis Not Detected Not Detected LAB MICROBIOLOGY METHOD 09/04/2024 10:45 AM [facility] Bordetella parapertussis Not Detected Not Detected LAB MICROBIOLOGY METHOD 09/04/2024 10:45 AM [facility] Mycoplasma pneumo by PCR Not Detected Not Detected LAB MICROBIOLOGY METHOD 09/04/2024 10:45 AM EST [facility] Chlamydia pneumoniae Not Detected Not Detected LAB MICROBIOLOGY METHOD 09/04/2024 10:45 AM EST [facility] SARS COV-2 Not Detected Not Detected LAB MICROBIOLOGY METHOD 09/04/2024 10:45 AM EST [facility] Swab Nasopharyngeal structure / Unknown Non-blood Collection / Unknown 09/04/2024 9:02 AM EST 09/04/2024 9:26 AM EST Narrative [facility] - 09/04/2024 10:45 AM EST Testing was performed using the [place] Respiratory Pathogen PCR Assay. All results must [...] Oquendo MD LAB MICROBIOLOGY - GENERAL [facility] Final Result [facility] [address] [place] [address], * [facility] CRITICAL CARE 30-74 MINUTES (09/04/2024 8:41 AM [...] EST Narrative 07/01/2019 4:51 PM EST [facility] Diagnostic Imaging Department [address] [place], [place] [id number] Patient: ??KRISTIN VALDIVIA ?/Age/Sex: 1940 - 78 - F Unit#: ??[id number] ? Location/Status: ??SPDIMAM/REG CLI ? Mnemonic/Ordering Site: ??DIGSC/SPMAM Ordering Physician: ??GRISELDA VELAZQUEZ MD Dominic Screening Digital - 07/01/19 - 1317 INDICATION: SCREENING COMPARISON: No prior studies are available for comparison. TECHNIQUE: CC and MLO views of the breasts were obtained, using full field digital mammography with 3D tomosynthesis views in the MLO projection. Computer aided detection with the [employer] was employed. Patient reports 2 sisters with [...] date for the next mammogram. ([id number] / [id number]) , ??[id number] Dictating Physician: ??BRODY SMITH MD Electronically Signed by: ??BRODY SMITH MD Dic Date/Time: ??07/01/19 1646 Sign date/Time: ??07/01/19 1651 Procedure Note Brody Smith - 07/13/2022 [facility] Diagnostic Imaging Department [address] [place] [id number] Patient: KRISTIN VALDIVIA/Age/Sex: 1940 - 78 - F Unit#: [id number] Location/Status: SPDIMAM/REG CLI Mnemonic/Ordering Site: [facility] Ordering Physician: GRISELDA VELAZQUEZ MD Dominic Screening Digital - 07/01/19 - 1317 INDICATION: SCREENING COMPARISON: No prior studies are available for comparison. TECHNIQUE: CC and MLO views of the breasts were obtained, using full field digital mammography with 3D tomosynthesis views in the MLO projection. Computer aided detection with the [employer] 7.2-H was employed. Patient reports 2 sisters [...] a target date for the next mammogram. [id number] / [id number]) , [id number] Dictating Physician: BRODY SMITH MD Electronically Signed by: BRODY SMITH MD Dic Date/Time: 07/01/19 164 Sign date/Time: 07/01/19 1651 Griselda Velazquez MD [...] Insurance [employer] MEDICARE MED[place] - [place] [facility] Advance Directives Documents on File Type Date Recorded Patient Environmental Science Technician Expl anation Health Care Decision (hx) 03/17/2017 [...] on File Name Relationship Healthcare Agent [facility] Communication Liz Starr Daughter Health Care Agent Care Teams Appliance Service Representative Relationship Specialty Start Date End Date Pam Montoya MD [address] [place] [address] , [address] [facility] D[facility]A: [facility] [place] PCP - General Internal Medicine 10/30/24
--- OUTSIDE RECORDS SUMMARY | 2024-11-15 09:40 | XMS_ITS | Clinical Summary ---
Author Organization [facility]. Address [address] [address] Phone Care Team Providers Care Teacher Instrumental Name Role Phone Pam Wills MD Primary Care Provider [phone] Allergies No known active allergies Medications amLODIPine [...] [facility] Visit [facility] [address] [place] [address] Jaylon Barreto MD Stage 3a chronic kidney [...] Office Visit [facility] [address] [facility] [address] [place] [address] Jaylon Barreto MD [address] [phone] Health Maintenance Due Date Last Done Comments [...] Most Recently Relevant to Health Maintenance Insurance [facility] Medicare [facility] Medicare Care Teams Teacher Instrumental Relationship Specialty Start Date End Date Pam Wills MD [address] [place] [address] PCP - General Internal Medicine 05/11/21
== END ==
LOC: HO.CARD 09:28
PROVIDERS: Visit Provider Nurse Practitioner Family
DX: I48.91 Unspecified atrial fibrillation (principal)
CPT/HCPCS: 82947; 93242; 99202; 99212

== ENCOUNTER 2024-12-07 08:53 | Outpatient (REF) | payer MEDICARE, OTHER, MEDICAID, SELFPAY ==
[2024-12-07 09:57] LABS: Appearance Urine Clear; Color Urine Yellow; Glucose Urine UA Negative (Negative); Leukocyte Esterase Urine Trace (Negative); Nitrite Urine Negative (Negative); PH 7.5 (5.0-9.0); UMIC TRIGGER UACC YES; Urine Blood Negative (Negative); Urine Ketones Negative (Negative); Urine Protein 30 (1+) mg/dL (Neg-Trace)
[2024-12-07 10:02] LABS: Bacteria Urine None Seen (None Seen); Hyaline Casts Urine 0-2 /LPF (0-2); RBC Urine 0-2 /HPF (0-2); Squamous Epithelial Cell Urine 0-2 /HPF (0-2); WBC Urine 0-5 /HPF (0-5)
== END 2024-12-07 08:54 | disposition home or self-care (01) ==
LOC: HO.LAB 08:53
PROVIDERS: PCP Internal Medicine; Referring Provider Internal Medicine Endocrinology, Diabetes & Metabolism; Visit Provider Internal Medicine
DX: R39.9 Unspecified symptoms and signs involving the genitourinary system (principal)
CPT/HCPCS: 81001

== ENCOUNTER 2024-12-13 08:01 | Outpatient (AMB) | payer MEDICARE, OTHER, MEDICAID, SELFPAY ==
--- NOTE | 2024-12-13 07:45 | A.OFFVIS_ITS ---
Vital Signs 12/13/24 08:12 Height 5 ft 2.8 in Weight 134 lb 7.712 oz BMI 24.0 BP 122/48 L Blood Pressure Location Rt brachial Position Sitting Pulse 72 Pulse Source Pulse Oximeter Pulse Oximetry (%) 96 Oxygen Delivery Method Room Air Intake Visit Reasons: T2DM Intake Note: Patient presents today for a follow-up on Type 2 Diabetes Mellitus: Last Diabetic eye exam was on: 06/2024 Last Podiatry exam was on: Patient does not see a Brand Director Most recent HbA1c: 9.1%, 10/16/2024 Random Glucose- 176 mg/dL, Today [employer] Make Up Helper Required: Yes [employer] Make Up Helper Language: Motion Picture Critic Services: [employer] Make Up Helper Offered & Declined [employer] Make Up Helper Name: JIM Burgess/STEPHEN MCKEON Information Interpreted: non-clinical & clinical Accompanied by: Daughter Allergies amlodipine Adverse Reaction (Intermediate, Verified 11/15/24 08:33) leg edema empagliflozin [From Jardiance] Adverse Reaction (Verified 11/15/24 08:33) vaginal candidiasis HPI Comments Details: 84 YO Female with PMHx Osteoporosis, DM2, CKD Stage 3, AFib on chronic AC with eliquis who is seen for diabetes consult. She is followed by Dr. Devine for osteoporosis. Was initially started on treatment with metformin. Was not controlled and she was started on Jardiance but had c/o vaginal itching from jardiance. Trulicity was started at 1.5mg and was increased to 3.0 mg weekly. She was having symptoms at the higher dose and had little appetite and this dose was decreased to 1.5mg weekly. Current DM meds metformin 1000mg bid Trulicity 1.5mg weekly. Most recent A1C 9.1% on 10/16/2024, up from prior 7% on 06/06/2025. Log book readings: avg 154 am 125-163 pm two readings 135 and 279 Today's 2 hour postprandial was 176 in the office Family history of T2DM in mother. No retinopathy: Has eyes checked yearly, last eye exam 07/16, Dr. Dalton, has cataracts Has neuropathy, last foot exam today in the office, sees podiatry. On gabapentin Has nephropathy, on ARB. UA positive for protein EGFR 57 Has HLD, on statin. Last LDL 42 as measured on 09/2024. Has CAD and AFib with rapid response on Eliquis. Followed regularly by Cardiology Denies symptoms of chest pain, dyspnea or claudication. Diet: Balanced but does get some concentrated sweets that the alf she is at NO recent diabetes education. [facility] Medical History COPD (chronic obstructive pulmonary disease) Left shoulder pain Hyperlipidemia LDL goal <100 Abnormal SPEP Vitamin D deficiency Osteoporosis Age related osteoporosis Physical exam Hypomagnesemia Atrial fibrillation with rapid ventricular response Urinary incontinence Abnormal EKG Screening for osteoporosis Neuropathy Microalbuminuria JONNY (obstructive sleep apnea) Left shoulder pain Anemia GERD (gastroesophageal reflux disease) Coronary artery disease Hypertension Type 2 diabetes mellitus with hyperglycemia Surgical History History of surgery on arm Hx of dilation and curettage Hx of breast biopsy Family History Mother Diabetes mellitus Father No problems noted. Sister Lymphoma Breast cancer Brother Colon cancer Social History Household Members: Family Housing: House Are you a primary special needs caregiver to a significant other at home: No Do you presently have visiting nurse or other home services: Yes (insurance nurse) Alcohol intake: never Patient Tobacco Use Status: Never used Tobacco e-Cigarette/Vaping Use: Never Used Second Hand Smoke Exposure: No service: No Current occupational status: disabled Cognitive needs: No Hearing needs: No Vision needs: Yes Physical Exam Const Other: Absence of Cushingoid features. Absence of acromegalic features. Neck exam reveals nl size thyroid about 15 gms. No thyroid nodules palpable. Heart S1 S2, Reg R/R. No M/R G. Skin exam reveals absence of vitiligo or acanthosis nigricans. Visual exam of foot performed. No ulcerations or open lesions. No inter digit maceration or fissuring. No onychomycosis, no callouses. Sensation intact to monofilament exam. Vibratory sensation is normal with 128 Hz tuning fork. hammer toes. Multiple superficial vessels visualized. Assessment & Plan Assessment & Plan (1) Type 2 diabetes mellitus with hyperglycemia: Code(s): E11.65 - Type 2 diabetes mellitus with hyperglycemia Category: Medical Qualifiers: Diabetes mellitus terminal make up operator insulin use: without shelter use Qualified Code(s): E11.65 - Type 2 diabetes mellitus with hyperglycemia Plan: 84-year-old type 2 diabetic with CKD stage 3, EGFR 57 on metformin with GLP 1 agonist. She was asked to periodically check her sugars 2 hours post meals. Fasting readings in good target for this patient. She has not yet due for an A1c so net lab order was placed to be done after January 16. Her next appointment we will be in 4-1/2 months so that her appointment coincides with her A1c. The patient had an opportunity to ask questions regarding treatment plan. The patient expressed understanding and agreement with the above treatment plan. The patient is aware they should contact our office by phone for worsening glucose readings or for any low blood sugars which may warrant a change in diabetes medication. Compliance is encouraged with medications and any followup testing/consults which may have been ordered. Orders: Orders Hemoglobin A1c 4 Weeks E11.65 - Type 2 diabetes mellitus with hyperglycemia Patient Instructions: Check your feet daily looking for any signs of infection, drainage, redness, ulceration and seek medical attention if this occurs. Break in shoes gradually and do not wear open-toed shoes or walk stocking footed or barefooted. Coding Level of Care Code Est Pt Level 4 (19731) Complex EM visit Add On G2211 Diagnoses Type 2 diabetes mellitus with hyperglycemia, without long-term current use of insulin E11.65 Diabetes mellitus shelter insulin use: without shelter use Time Spent (min) 30 Comment Time spent reviewing labs/provider notes, face to face, chart doc
--- OUTSIDE RECORDS SUMMARY | 2024-12-13 08:03 | XMS_ITS | Clinical Summary ---
Author Organization [facility]. Address [address] [address] Phone Care Team Providers Care Cover Cutter Machine Name Role Phone Pam Wills MD Primary Care Provider [phone] Allergies No known active allergies Medications amLODIPine [...] Office Visit [facility] [address] [place] [address] Jaylon Barreto MD Stage 3a chronic kidney [...] Office Visit [facility] [address] [facility] [address] [place] [address] Jaylon Barreto MD [address] [phone] Health Maintenance Due Date Last Done Comments [...] Most Recently Relevant to Health Maintenance Insurance [facility] [place] [address] [facility] Medicare Care Teams Cover Cutter Machine Relationship Specialty Start Date End Date Pam Wills MD [address] [place] [address] PCP - General Internal Medicine 05/11/21
[2024-12-13 08:12] VITALS: BP 122/48; PULSE 72; O2SAT 96; BMI 24.0
[2024-12-13 08:23] LABS: Glucose, Whole Blood 176 mg/dL (60-115)
== END 2024-12-13 08:38 | disposition home or self-care (01) ==
LOC: HO.ENCR 08:02
PROVIDERS: PCP Internal Medicine; Visit Provider Nurse Practitioner Adult Health
DX: E11.65 Type 2 diabetes mellitus with hyperglycemia (principal)
CPT/HCPCS: 99214; G2211

== ENCOUNTER → 2024-12-13 09:24 | Outpatient (REF) | payer MEDICARE, OTHER, MEDICAID, SELFPAY ==
--- NOTE | 2024-12-13 09:26 | CA_ITS ---
Transthoracic Echocardiogram Patient (Last, First, Middle): Kristin Valdivia, Gender: Female Date of : 1940 Age: 84 Procedure Date: 12/13/2024 Procedure Type: Transthoracic Echocardiogram Location: OP Height: 160.02 cm Weight: 61.69 kg BSA: 1.64 m2 Heart Rate: bpm BP: 140 / 56 mmHg Senior Planning Analyst: TO Referring MD: Helen Bai BIOMEDICAL ENGINEERING PROFESSORBirdieC Symptoms: I48.91 - Unspecified atrial fibrillation Study Quality: Fair Conclusions: - Normal left ventricular size, thickness, systolic function, and wall motion. The visually estimated ejection fraction is between 55-60%. Abnormal diastolic function is noted. Spectral Doppler is indicative of an impaired relaxation filling pattern. Elevated filling pressures. - Normal right ventricular cavity size and systolic function. Findings Left Ventricle Normal left ventricular size, thickness, systolic function, and wall motion. The visually estimated ejection fraction is between 55-60%. Abnormal diastolic function is noted. Spectral Doppler is indicative of an impaired relaxation filling pattern. Elevated filling pressures. Right Ventricle Normal right ventricular cavity size and systolic function. Atria The left atrium is normal in size. The right atrium is normal in size. Aortic Valve Normal aortic valve structure and function. There is no aortic valve stenosis. There is no aortic valve regurgitation. Mitral Valve The mitral valve appears normal. There is no mitral valve regurgitation. There is no mitral valve stenosis. Pulmonic Valve The pulmonic valve is normal. There is no pulmonic valve regurgitation. Tricuspid Valve Normal tricuspid valve structure. There is trace tricuspid valve regurgitation. Normal right atrial pressure. There is no evidence of pulmonary hypertension. Great Vessels All visible segments of the aorta are normal in size. The visualized portions of the pulmonary artery and branches are normal. Venous The inferior vena cava is normal in size and collapses greater than 50% with inspiration. Pericardium/Pleural There is no evidence of pericardial effusion. Prior Study Comparison Changes noted compared to prior study dated: 06/14/2022. Elevated filling pressures. Measurements 2D Linear Measurements IVSd: 0.62 0.6-0.9/0.6-1.0 cm LVIDd: 4.69 3.9-5.3/4.2-5.9 cm LVIDd Index: 2.86 2.4-3.2/2.2-3.1 cm/m2 LVIDs: 2.99 2.0-3.6 cm LVPWd: 0.65 0.7-1.1 cm LA Diam: 3.00 2.7-3.8/3.0-4.0 cm LAIDs Index: 1.83 1.5-2.3 cm/m2 LV Mass: 113.22 67-162/88-224 g LV Mass Index: 69.04 43-95/49-115 g/m2 LVOT Diam: 2.00 3.0+(-)1.3 cm 2D Systolic Function EF 4C: 58.30 >55% EF 2C: 50.30 >55% EF BiP: 55.30 >55% Mitral Valve MV Pk E: 0.81 MV PK A: 0.97 MV Decel Time: 235.00 E/A: 0.80 E'Lateral: 5.99 E'Medial: 5.66 E/E' Med: 14.40 E/E' Lat: 13.60 PHT: 69.00 MVA PHT: 3.19 Decel [place]: 3.47 Aortic Valve AoV Pk [place]: 1.33 AoV Pk Grad: 7.00 LVOT LVOT Pk [place]: 0.84 LVOT Mn [place]: 0.56 LVOT VTI: 0.19 LVOT Pk Grad: 3.00 LVOT Mn Grad: 2.00 LVOT Diam: 2.00 LVOT Area: 3.14 Diastolic Function MV Pk E: 0.81 MV Pk A: 0.97 E/A: 0.80 E'Medial: 5.66 E/E' Med: 14.40 E' Laterial: 5.99 E/E' Lat: 13.60 Right Ventricle TAPSE (mm): 19.20 TVS' [place]: 10.00 Tricuspid Valve TR Pk [place]: 2.36 TR Pk Grad: 22.00 RA Press: 3.00 RVSP: 25.00 Great Vessels Aorta Sinus of Valsalva: 2.80 2.0-3.5 cm Ao Asc: 2.60 2.1-3.4 cm Updated in Other Vendor System with Status of Final Sabas Mcduffie MD electronically signed on 12/15/2024 9:22:22 PM with status of Final
== END ==
LOC: HO.CARD 09:24
PROVIDERS: PCP Internal Medicine; Visit Provider Nurse Practitioner Family
DX: I48.91 Unspecified atrial fibrillation (principal); R07.89 Other chest pain
CPT/HCPCS: 93242; 93306

== ENCOUNTER → 2024-12-13 09:26 | Outpatient (BNV) | payer MEDICARE, OTHER, MEDICAID, SELFPAY | PROVIDERS: PCP Internal Medicine; Visit Provider Internal Medicine Cardiovascular Disease | DX: I48.91 Unspecified atrial fibrillation (principal); I51.89 Other ill-defined heart diseases | CPT/HCPCS: 93306 ==

== ENCOUNTER → 2024-12-26 13:29 | Outpatient (REF) | payer MEDICARE, OTHER, MEDICAID, SELFPAY ==
--- OUTSIDE RECORDS SUMMARY | 2024-12-26 15:56 | XMS_ITS | Clinical Summary ---
Author Organization [facility]. Address [address] [address] Phone Care Team Providers Care Fishing Tool Supervisor Name Role Phone Pam Wills MD Primary Care Provider Allergies No known active allergies Medications amLODIPine [...] Office Visit [facility] [address] [place] [address] Jaylon Barreto MD Stage 3a chronic kidney [...] Office Visit [facility] [address] [facility] [address] [place] [address] Jaylon Barreto MD [address] [phone] Health Maintenance Due Date Last Done Comments [...] Most Recently Relevant to Health Maintenance Insurance [facility] [place] [place] [address] [facility] Medicare Care Teams Fishing Tool Supervisor Relationship Specialty Start Date End Date Pam Wills MD [address] [place] [address] PCP - General Internal Medicine 05/11/21
== END ==
LOC: HO.CARD 13:29
PROVIDERS: Visit Provider Nurse Practitioner Family
DX: I48.91 Unspecified atrial fibrillation (principal)
CPT/HCPCS: 93242

== ENCOUNTER → 2024-12-26 13:36 | Outpatient (BNV) | payer MEDICARE, OTHER, MEDICAID, SELFPAY | PROVIDERS: Visit Provider Internal Medicine Cardiovascular Disease | DX: I49.1 Atrial premature depolarization (principal) | CPT/HCPCS: 93227 ==

== ENCOUNTER 2025-01-07 12:58 | Outpatient (AMB) | payer MEDICARE, OTHER, MEDICAID, SELFPAY ==
[2025-01-07 13:04] VITALS: BP 136/60; PULSE 82; TEMP 37.1; O2SAT 95; BMI 24.1
--- NOTE | 2025-01-07 13:04 | AM.OFFWIN_ITS ---
Intake Vital Signs 01/07/25 13:04 Height 5 ft 2.8 in Weight 135 lb 6 oz BMI 24.1 BP 136/60 Blood Pressure Location Lt brachial Position Sitting Pulse 82 Pulse Source Pulse Oximeter Temp 98.8 F Temp Source Oral Pulse Oximetry (%) 95 Oxygen Delivery Method Room Air Intake Visit Reasons: PE sore throat, fever, cough Intake Note: Patient presents with a sore throat, cough and fever times 3 days Patient Tobacco Use Status: Never used Tobacco Food Handler Required: No Allergies amlodipine Adverse Reaction (Intermediate, Verified 01/07/25 13:10) leg edema empagliflozin [From Jardiance] Adverse Reaction (Verified 01/07/25 13:10) vaginal candidiasis Do you need a note to return to daycare/school/sports/work: No HPI HPI Comments History of Present Illness Details History - The patient is an 84-year-old female p resenting with her daughter as her digital strategy specialist for a sore throat accompanied by cough and suspected pharyngitis. - The onset of symptoms was noted on Mon night, with associated throat discomfort and cough, persisting over three days. - She has sinus pressure and congestion. She has been having a headache. She also has right ear pain. - The patient experienced a white patch in the throat area, though there was no concurrent fever currently. - The patient denied all other systemic symptoms including chest discomfort, respiratory distress, or gastrointestinal discomfort. - Past or present tobacco use is not rep orted. - She has been eating and drinking. She has no sick contacts. - She denies fever or chills. She denies CP, SOB, abd pain, n/v/d. Physical Exam General: Cooperative, healthy appearing, comfortable and no acute distress Orientation/consciousness: Patient oriented x3 Head: Normal to inspection Ears: Hearing grossly normal bilaterally, external ears normal and TM's normal bilaterally Nose: Normal external nose present, Normal nares present and No nasal discharge present Face and sinus: Normal facial exam and Sinuses non-tender Mouth: Normal oral and palatal mucosa present and moist mucous membranes Throat: Tonsils are swollen and erythematous with white exudate on the right, Yes uvula midline. Posterior oropharynx erythema Eyes: Appearance normal, both eyes and all related structures Neck: Normal visual inspection, full ROM. Tonsillar adenopathy noted bilaterally. Respiratory: Clear to auscultation bilaterally. Normal respiratory effort, able to speak in complete sentences, no respiratory distress, not tachypneic, no tripod positioning and no use of accessory muscles Cardiovascular: Regular rate and rhythm. Normal S1 and S2 Skin: No rashes or lesions noted Patient was informed and verbally consented to the use of an ambient scribe for clinic note documentation during this visit [facility] Medical History COPD (chronic obstructive pulmonary disease) Left shoulder pain Hyperlipidemia LDL goal <100 Abnormal SPEP Vitamin D deficiency Osteoporosis Age related osteoporosis Physical exam Hypomagnesemia Atrial fibrillation with rapid ventricular response Urinary incontinence Abnormal EKG Screening for osteoporosis Neuropathy Microalbuminuria JONNY (obstructive sleep apnea) Left shoulder pain Anemia GERD (gastroesophageal reflux disease) Coronary artery disease Hypertension Type 2 diabetes mellitus with hyperglycemia Surgical History History of surgery on arm Hx of dilation and curettage Hx of breast biopsy Family History Mother Diabetes mellitus Father No problems noted. Sister Lymphoma Breast cancer Brother Colon cancer Social History Household Members: Family Housing: House Are you a primary housekeeper child care to a significant other at home: No Do you presently have visiting nurse or other home services: Yes (insurance nurse) Alcohol intake: never Patient Tobacco Use Status: Never used Tobacco e-Cigarette/Vaping Use: Never Used Second Hand Smoke Exposure: No service: No Current occupational status: disabled Cognitive needs: No Hearing needs: No Vision needs: Yes Review of Systems Const All systems reviewed & are unremarkable except as noted in HPI and below Physical Exam Vital Signs: Last Vital Signs Temp 98.8 F 01/07/25 13:04 Pulse 82 01/07/25 13:04 BP 136/60 01/07/25 13:04 Pulse Ox 95 01/07/25 13:04 Oxygen Delivery Method Room Air 01/07/25 13:04 BMI result Body Mass Index 24.1 Results AMB Rapid Strep AMB Rapid Strep Negative Last Edit by Marion Smith CMA on 01/07/25 14:04 Assessment & Plan Assessment & Plan (1) Sore throat: Code(s): J02.9 - Acute pharyngitis, unspecified Plan Most likely pharyngitis strep vs viral Rapid was negative in the office Plan - Begin antibiotics for treatment of pharyngitis in light of symptomatic presentation and oropharyngeal examination results. - [id number] anti-inflammatory medication is recommended for relief of sore throat symptoms. - Daily saltwater gargles are advised. - Schedule follow-up visit contingent on the progression or persistence of symptoms. Orders: Orders AMB Rapid Strep Screen Today Z13.9 - Encounter for screening, unspecified Medications: New amoxicillin 500 mg PO Q12H 10 days 20 tabs 0RF Coding Level of Care Code Est Pt Level 3 (64568) Diagnoses Sore throat J02.9
--- OUTSIDE RECORDS SUMMARY | 2025-01-07 14:42 | XMS_ITS | Clinical Summary ---
Author Organization [facility]. Address [address] [address] Phone Care Team Providers Care Roller Coaster Engineer Name Role Phone Pam Wills MD Primary Care Provider [phone] Allergies No known active allergies Medications amLODIPine [...] Office Visit [facility] [address] [place] [address] Jaylon Barreto MD Stage 3a chronic kidney [...] Office Visit [facility] [address] [facility] [address] [place] [address] Jaylon Barreto MD [address] [phone] Health Maintenance Due Date Last Done Comments [...] Most Recently Relevant to Health Maintenance Insurance [facility] Medicare [facility] Medicare Care Teams Roller Coaster Engineer Relationship Specialty Start Date End Date Pam Wills MD [address] [place] [address] PCP - General Internal Medicine 05/11/21
== END 2025-01-07 14:34 | disposition home or self-care (01) ==
PROVIDERS: Visit Provider Physician Assistant Medical
DX: J02.9 Acute pharyngitis, unspecified (principal)

== ENCOUNTER → 2025-01-07 12:58 | Outpatient (BNVA) | payer MEDICARE, OTHER, MEDICAID, SELFPAY | PROVIDERS: Visit Provider Physician Assistant Medical | DX: J02.9 Acute pharyngitis, unspecified (principal) | CPT/HCPCS: 87880; 99212 ==

== ENCOUNTER 2025-01-10 09:04 | Outpatient (AMB) | payer MEDICARE, OTHER, MEDICAID, SELFPAY ==
--- NOTE | 2025-01-10 09:14 | MHC.OFFVIS ---
Vital Signs 01/10/25 09:16 Height 5 ft 2.8 in Weight 134 lb 7.712 oz BMI 24.0 BP 130/62 Blood Pressure Location Lt brachial Position Sitting Pulse 71 Intake Visit Reasons: f/u after testing ECHO/ holter Intake Note: Follow-up after testing echo and holter c/o sob Research Associate Quality Control Qc Services: Research Associate Quality Control Qc Present Research Associate Quality Control Qc Name: Perlita Leo Perpetual Inventory Clerk: Perpetual Inventory Clerk Present Accompanied by: Daughter Allergies amlodipine Adverse Reaction (Intermediate, Verified 01/07/25 13:10) leg edema empagliflozin (From Jardiance) Adverse Reaction (Verified 01/07/25 13:10) vaginal candidiasis Medication List - Last Reconciled 01/10/25 by Helen Bai NP-C [adult diapers As directed] albuterol sulfate 90 mcg/actuation 2 puffs inhalation Q4-6H PRN 30 days alendronate 70 mg PO QWEEK amoxicillin 500 mg PO Q12H 10 days apixaban (Eliquis) 5 mg PO BID 90 days blood sugar diagnostic TEST 3 TIMES DAILY blood-glucose meter (Favery Ultra2 Meter) As directed- TID cane As directed cholecalciferol (vitamin D3) 25 mcg PO DAILY 90 days commode (bedside commode) As directed dulaglutide (Trulicity) 1.5 mg (0.5 mL) subcut QWEEK 28 days fluticasone propion-salmeterol 100-50 mcg/dose (Wixela Inhub) 1 inh inhalation BID gabapentin 300 mg PO BEDTIME isosorbide mononitrate ER 60 mg PO DAILY 90 days levalbuterol tartrate 45 mcg/actuation (Xopenex HFA) 2 puffs inhalation Q4-6H PRN losartan 25 mg PO DAILY 90 days magnesium oxide 400 mg PO DAILY 90 days metformin 1,000 mg PO BID 90 days metoprolol succinate ER 100 mg PO DAILY 90 days metoprolol succinate ER 50 mg PO DAILY omeprazole 20 mg PO DAILY 90 days [One touch Ultra Blue test strips Use 3 times a day] rosuvastatin 10 mg PO DAILY 90 days tizanidine 2 mg PO Q8H PRN 30 days underpads (Certainty Underpads) Use 1 to 2 times a day walker with brakes and seat HPI HPI f/u after testing ECHO/ holter: Details: Kristin is an 84-year-old female past medical history of hypertension, hyperlipidemia, diabetes, paroxysmal atrial fibrillation, sleep apnea who was recently seen at [facility] with reports of chest discomfort and hypertension. She ruled out for ACS. They did an outpatient nuclear stress test, results not available this visit. She presents here for follow up. Today she reports that she has been ill recently with sore throat, congestion and shortness of breath. She says she has been on an antibiotic. She has not been having issues with chest discomfort like what she went to [facility] for. She will get occassional brief heart palpitations which are unchanged. No PND, orthopnea or edema. No lightheadedness, presyncope, syncope, falls. She is taking her medications as directed. No bleeding issues reported. Daughter is present. PENDING SALE TO [facility] Medical History COPD (chronic obstructive pulmonary disease) Left shoulder pain Hyperlipidemia LDL goal <100 Abnormal SPEP Vitamin D deficiency Osteoporosis Age related osteoporosis Physical exam Hypomagnesemia Atrial fibrillation with rapid ventricular response Urinary incontinence Abnormal EKG Screening for osteoporosis Neuropathy Microalbuminuria JONNY (obstructive sleep apnea) Left shoulder pain Anemia GERD (gastroesophageal reflux disease) Coronary artery disease Hypertension Type 2 diabetes mellitus with hyperglycemia Surgical History History of surgery on arm Hx of dilation and curettage Hx of breast biopsy Family History Mother Diabetes mellitus Father No problems noted. Sister Lymphoma Breast cancer Brother Colon cancer Social History Household Members: Family Housing: House Are you a primary home care companion to a significant other at home: No Do you presently have visiting nurse or other home services: Yes (insurance nurse) Alcohol intake: never Patient Tobacco Use Status: Never used Tobacco e-Cigarette/Vaping Use: Never Used Second Hand Smoke Exposure: No service: No Current occupational status: disabled Cognitive needs: No Hearing needs: No Vision needs: Yes Review of Systems Const All systems reviewed & are unremarkable except as noted in HPI and below Denies chills, Denies fatigue, Denies fever(s), Denies frequent falls, Denies weakness, Denies weight gain and Denies weight loss ENT Denies dizziness Card Denies chest pain, Denies leg edema, Denies lightheadedness, Denies palpitations, Denies dyspnea, Denies dyspnea on exertion, Denies orthopnea and Denies other (loss of consciousness) Resp Denies cough, Denies dyspnea and Denies dyspnea on exertion GI Denies hematochezia and Denies change in stool character Musc Denies abnormal gait, Denies muscle weakness, Denies numbness, Denies radiating pain into limb and Denies tingling Neuro Denies abnormal gait, Denies dizziness, Denies frequent falls, Denies numbness, Denies tingling and Denies weakness Endo Denies fatigue and Denies palpitations Physical Exam Vital Signs: Last Vital Signs Pulse 71 01/10/25 09:16 BP 130/62 01/10/25 09:16 BMI result Body Mass Index 24.0 Const General: cooperative, healthy appearing, comfortable and no acute distress Orientation/consciousness: patient oriented x3 Neck Neck: Yes normal visual inspection Resp Effort & Inspection: normal respiratory effort Auscultation: clear to auscultation bilaterally, rales (left base), no rhonchi and no wheezes Cardio Rate: regular rate Rhythm: regular rhythm Heart sounds: S1 normal heart sound present, S2 normal heart sound present, no gallops, no murmurs and no rubs Neuro General: patient oriented x3 Extrem General: Yes normal to inspection, No no pedal edema and No calf tenderness Psych Appearance: grossly normal Mental Status: mental status grossly normal Speech and movement: Normal speech and movement present Assessment & Plan Assessment & Plan (1) PAF (paroxysmal atrial fibrillation): Code(s): I48.0 - Paroxysmal atrial fibrillation Category: Medical Plan: History of paroxysmal atrial fibrillation, treated with rhythm control. She is on metoprolol for heart rate control. She is on Eliquis for anticoagulation. She does report brief heart palpitations. Holter monitor done 12/26/24 for 1 day 19 hr, shoed SR, average rate 75 b/min, occ PAC and 3 SVE runs, longest 11 beats. Pulse is regular on exam today. Metoprolol had been increased last visit. Continue Metoprolol xl 100mg in am and 50mg in pm. Continue Eliquis. (2) Chest discomfort: Code(s): R07.89 - Other chest pain Category: Medical Plan: Reports of chest discomfort at times with her heart palpitations. She was recently evaluated at [facility] for her chest discomfort symptom and ruled out for ACS. They did order an outpatient nuclear stress test. Will try to obtain that result. (3) Hypertension: Code(s): I10 - Essential (primary) hypertension Category: Medical Qualifiers: Hypertension type: essential hypertension Qualified Code(s): I10 - Essential (primary) hypertension Plan: Blood pressure goal less than 130/80. Normal today. No med changes made. (4) Hyperlipidemia LDL goal <70: Code(s): E78.5 - Hyperlipidemia, unspecified Category: Medical Plan: [place] LDL goal less than 70 in patient with diabetes. Labs done 09/21/2024 showed LDL 42. Continue rosuvastatin. Plan I discussed with the patient that her shortness of breath is likely related to her current throat infection and should improve with the prescribed amoxicillin. I advised her to continue her current medications, including metoprolol and Eliquis, for her paroxysmal atrial fibrillation. Continue to monitor for any worsening symptoms such as increased shortness of breath or leg swelling. Follow-up with cardiology is planned for six months, with the option to return sooner if symptoms necessitate. Patient Instructions: - Continue taking metoprolol and Eliquis as prescribed. - Complete the course of amoxicillin for throat infection. - Monitor for worsening symptoms, such as increased shortness of breath or leg swelling, and seek medical attention if they occur. - Follow up with cardiology in six months, or sooner if needed. Patient was informed and verbally consented to the use of an ambient scribe for clinic note documentation during this visit. Visit time spent on chart review, interview, assessment, orders, documentation. Coding Level of Care Code Est Pt Level 4 (48013) Complex EM visit Add On G2211 Diagnoses PAF (paroxysmal atrial fibrillation) I48.0 Chest discomfort R07.89 Essential hypertension I10 Hypertension type: essential hypertension Hyperlipidemia LDL goal <70 E78.5 Time Spent (min) 28
[2025-01-10 09:16] VITALS: BP 130/62; PULSE 71; BMI 24.0
--- OUTSIDE RECORDS SUMMARY | 2025-01-10 09:17 | XMS_ITS | Clinical Summary ---
Author Organization [facility]. Address [address] [address] Phone Care Team Providers Care Dip Guider Stoves Name Role Phone Pam Wills MD Primary Care Provider [phone] Allergies No known active allergies Medications amLODIPine [...] Office Visit [facility] [address] [place] [address] Jaylon Barreto MD Stage 3a chronic kidney [...] [facility] [address] [facility] [address] [place] [id number] Jaylon Barreto MD [address] [id number] Health Maintenance Due Date Last Done Comments [...] Relevant to Health Maintenance Insurance [facility] Medicare [facility] Medicare Care Teams Dip Guider Stoves Relationship Specialty Start Date End Date Pam Wills MD [address] [place] [address] PCP - General Internal Medicine 05/11/21
== END 2025-01-10 10:00 | disposition home or self-care (01) ==
LOC: HO.HCS 09:05
PROVIDERS: PCP Internal Medicine; Visit Provider Nurse Practitioner Family
DX: I48.0 Paroxysmal atrial fibrillation (principal); R07.89 Other chest pain; I10 Essential (primary) hypertension; E78.5 Hyperlipidemia, unspecified
CPT/HCPCS: 99214; G2211

== ENCOUNTER → 2025-01-10 09:04 | Outpatient (BNVA) | payer MEDICARE, OTHER, MEDICAID, SELFPAY | PROVIDERS: PCP Internal Medicine; Visit Provider Nurse Practitioner Family | DX: I48.0 Paroxysmal atrial fibrillation (principal); I10 Essential (primary) hypertension; R07.89 Other chest pain; E78.5 Hyperlipidemia, unspecified | CPT/HCPCS: 99212 ==

== ENCOUNTER 2025-01-31 11:20 | Outpatient (AMB) | payer MEDICARE, OTHER, MEDICAID, SELFPAY ==
--- OUTSIDE RECORDS SUMMARY | 2025-01-31 02:42 | XMS_ITS | Encounter Summary ---
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 [employer]vel Name Role Phone Pam Montoya MD Primary Care Provider [phone] Reason for Visit * Reason Comments Cough Fever Encounter Details Date Type Department Care Team (Late st Contact Info) Description 01/31/2025 2:42 AM EDT - 01/31/2025 5:32 AM EDT Emergency [facility] Emergency [address] [place] [address] Severo Cha MD [address] [place] [address] COVID (Primary Dx) Discharge Disposition: Home or Self Care Social History Tobacco Use Types Packs/Day Years [...] Sign Reading Time Taken Comments Blood Pressure 155/67 01/31/2025 12:25 AM EDT Pulse 86 01/31/2025 12:25 AM EDT Temperature 37.2 C (99 F) 01/31/2025 12:25 AM EDT Respiratory Rate 18 01/31/2025 12:25 AM EDT Oxygen Saturation 96% 01/31/2025 12:25 AM EDT Inhaled Oxygen Concentration - - Weight 61.7 kg (136 lb) 01/31/2025 12:25 AM EDT Height 160 cm (5' 3 ) 01/31/2025 12:25 AM EDT Body Mass Index 24.09 01/31/2025 12:25 AM EDT documented in this encounter Functional [...] Suarez RN documented in this encounter Discharge Instructions * Discharge Instructions* Severo Cha MD - 01/31/2025 4:56 AM EDT Por favor, acuda a fowler m??dico de cabecera en 24 a 48 horas para lilli nueva evaluaci??n. Mant??ngase dejon hidratado. Si presenta s??ntomas nuevos o que empeoran, regrese a urgencias. Recoja fowler inhalador. * Attachments The following attachments cannot be sent through Care Everywhere. * Coronavirus Disease (COVID 19): Caring for Yourself: Quick List (Telugu) documented in this encounter Medications at Time of Discharge albuterol HFA (PROAIR HFA ; PROVENTIL HFA ; VENTOLIN HFA) 90 mcg/actuation inhaler Inhale 2 puffs by mouth every 6 (six) hours if needed for wheezing. 6.7 g 3 10/22/2024 10/22/2025 albuterol HFA (PROAIR HFA ; PROVENTIL HFA ; VENTOLIN HFA) 90 mcg/actuation inhaler Inhale 1-2 puffs by mouth every 4 (four) hours if needed for wheezing. 6.7 g 01/31/2025 03/02/2025 alendronate (FOSAMAX) 70 mg tablet Take 1 [...] each day. Do not crush or chew. metoprolol succinate (TOPROL-XL) 200 mg 24 hr tablet Take 0.5 tablets (100 mg total) by mouth daily. metoprolol tartrate (LOPRESSOR) 100 mg tablet Take 1 tablet (100 mg total) by mouth. omeprazole (PriLOSEC) [address] capsule Take [...] inhaler Inhale 1-2 puffs by mouth every 4 (four) hours if needed for wheezing. 6.7 g 01/31/2025 03/02/2025 documented in this encounter Discharge Disposition Disposition Code Departure Means Destination Comment s Home or Self Care Discharge instructions reviewed, printed copy provided in Telugu. Pt verbalized understanding. Pt refusing vitals upon discharge, as she is tired and her daughter, who is her ride home, has to work soon. Pt ambulated out of ED in no acute distress. documented in this encounter Progress Notes * Chanelle Mcmahan RN - 01/31/2025 12:23 AM EDT Pt here w/ 3-4 days w/ cough, fever at home today. Hx asthma. * Severo Cha MD - 01/31/2025 12:22 AM EDT HPI Chief Complaint Patient presents with Cough Fever 84-year-old female presenting with 3 days of cough and 1 day of tactile fevers and shortness of breath. No sick contacts at home. Patient denies chest pain, abdominal pain, nausea, vomiting, urinary symptoms [place] Coma Scale Score: 15 Patient History Past Medical History: Diagnosis Date Adrenal adenoma 10/21/2016 DX:Adrenal adenoma Allergic rhinitis 04/25/2017 DX:Allergic rhinitis Anxiety 10/09/2015 DX:Anxiety Arthritis 05/01/2015 DX:Arthritis Asthma 04/25/2017 DX:Asthma CAD (coronary artery disease) 05/01/2015 DX:CAD (coronary artery disease) Diabetes mellitus type 2 with neurological manifestations (CMS/HCC V24, CMS/HCC V28) 05/03/2017 DX:Diabetes mellitus type 2 with neurological manifestations ([facility]) Hyperlipidemia 05/03/2017 DX:Hyperlipidemia Hypertension 05/03/2017 DX:Hypertension Insomnia 10/09/2015 DX:Insomnia Mass of colon 08/22/2016 DX:Mass of colon Past Surgical History: Procedure Laterality Date BREAST LUMPECTOMY PROCEDURE: HISTORICAL BREAST LUMPECTOMY SHOULDER SURGERY PROCEDURE: HISTORICAL SHOULDER SURGERY No family history on file. Social History Tobacco Use Smoking status: Never Smokeless tobacco: Never Substance Use Topics Alcohol use: No Drug use: No Review of Systems Review of Systems All other systems reviewed and are negative. Physical Exam ED Triage Vitals [01/31/25 0025] Temp Heart Rate Resp BP 37.2 ??C (99 ??F) 86 18 (!) 155/67 SpO2 Temp Source Heart Rate Source Patient Position 96 % Oral -- Sitting BP Location FiO2 (%) Right arm -- Physical Exam Constitutional: Appearance: Normal appearance. HENT: Right Ear: External ear normal. Left Ear: External ear normal. Mouth/Throat: Pharynx: Posterior oropharyngeal erythema present. No oropharyngeal exudate. Eyes: Extraocular Movements: Extraocular movements intact. Pupils: Pupils are equal, round, and reactive to light. Cardiovascular: Rate and Rhythm: Normal rate. Pulses: Normal pulses. Pulmonary: Effort: Pulmonary effort is normal. Breath sounds: Normal breath sounds. Abdominal: General: Abdomen is flat. Palpations: Abdomen is soft. Musculoskeletal: General: Normal range of motion. Cervical back: Normal range of motion. Neurological: General: No focal deficit present. Mental Status: She is alert and oriented to person, place, and time. ED Course & MDM Clinical Impressions as of 01/31/25 0714 COVID Medical Decision Making 84-year-old female presenting for cough, fevers and shortness of breath - I am concerned for the following; COVID, flu, pneumonia, viral URI - I considered ACS/angina however patient has no chest pain - Viral swab, strep swab, CBC, BMP and chest x-ray ordered Independent interpretation of results: - Electrolytes within normal limits, stable H&H - COVID-positive - No large consolidation appreciated on chest x-ray - Negative strep I prescribed an inhaler for patient and I provided her and her daughter with home care instructionsand return precautions. I also instructed her to follow-up with her PCP. An opportunity for questions were given however patient did not have any. Patient discharged Procedures Severo Cha MD 01/31/25 0334 Severo Cha MD 01/31/25 0412 Severo Cha MD 01/31/25 0715 documented in this encounter Plan of Treatment Upcoming Encounters Date Type Department Care Team (Late st Contact Info) Description 05/08/2025 10:45 AM EDT Office Visit Pulmonolgy - [place] [address] [place] [phone] Fco Parsons MD [address] [place] [address] 06/17/2025 2:00 PM EST Office Visit Infectious Disease - [place] [address] [place] [id number] Natalie Govea MD [address] [facility] [address] [place] [address] Pending Results Name Type Priority Associated Diagnoses Date /Time Culture throat Microbiology STAT 02/01/20 4:10 AM EDT Scheduled Orders Name Type Priority Associated Diagnoses Orde r Schedule Culture throat Microbiology Routine Once for 1 Occurrences starting 01/31/2025 until 01/31/2025 documented as of this encounter Procedures Procedure Name Priority Date/Time Associated Diagnosis Comments RAPID STREP A SCREEN STAT 01/31/2025 4:10 AM EDT XR CHEST 2 VIEWS STAT 01/31/2025 1:50 AM EDT RESPIRATORY VIRUS PANEL MOLECULAR STUDY STAT 01/31/2025 12:34 AM EDT CBC WITH AUTO DIFFERENTIAL STAT 01/31/2025 12:33 AM EDT CBC AND DIFFERENTIAL STAT 01/31/2025 12:33 AM EDT BASIC METABOLIC PANEL STAT 01/31/2025 12:33 AM EDT documented in this encounter Results * Rapid strep A screen (01/31/2025 4:10 AM EDT) Strep A Ag Negative Negative, Invalid 01/31/2025 5:[address] [facility] Comment:Refer to Throat Cult ure. Swab Structure of anterior portion of neck / Unknown Non-blood Collection / Unknown 01/31/2025 4:10 AM EDT 01/31/2025 4:36 AM EDT Severo Cha MD LAB MICROBIOLOGY - GENERAL ORDERABLES Final Result [facility] [address] [place] [address], * XR Chest 2 Views (01/31/2025 1:50 AM EDT) Anatomical Region Laterality Modality Body Radiographic Rosey ging 01/31/2025 9:55 AM EDT Impressions 01/31/2025 9:56 AM EDT No acute cardiopulmonary findings. -------- FINAL REPORT -------- Dictated By: Alvin Saenz Dictated Date: 01/31/2025 09:55 ET Assigned Physician: Alvin Saenz Reviewed and Electronically Signed By: Alvin Saenz Signed Date: 01/31/2025 09:56 ET Workstation ID: [id number] Transcribed By: Self Edit Transcribed Date: 01/31/2025 09:55 ET Narrative 01/31/2025 9:56 AM EDT PROCEDURE: PA and lateral radiographs of the chest. HISTORY: dyspnea. COMPARISON: 10/30/2024. FINDINGS: Lungs, pleural spaces, pulmonary vasculature, and cardiomediastinal contours are normal. Atherosclerotic calcifications of the aorta. Mild degenerative changes of the spine. Bones appear demineralized. Orthopedic anchors in the right humeral head. Degenerative changes of the shoulders. Procedure Note Alvin Saenz MD - 01/31/2025 PROCEDURE: PA and lateral radiographs of the chest. HISTORY: dyspnea. COMPARISON: 10/30/2024. FINDINGS: Lungs, pleural spaces, pulmonary vasculature, and cardiomediastinalcontours are normal. Atherosclerotic calcifications of the aorta. Milddegenerative changes of the spine. Bones appear demineralized.Orthopedic anchors in the right humeral head. Degenerative changes of theshoulders. IMPRESSION: No acute cardiopulmonary findings. -------- FINAL REPORT -------- Dictated By: Alvin Saenz Dictated Date: 01/31/2025 09:55 ET Assigned Physician: Alvin Saenz Reviewed and Electronically Signed By: Alvin Saenz Signed Date: 01/31/2025 09:56 ET Workstation ID: [id number] Transcribed By: Self Edit Transcribed Date: 01/31/2025 09:55 ET us Severo Cha MD IMG XR PROCEDURES Final Res ult * (ABNORMAL) Respiratory virus panel molecular study (01/31/2025 12:34 AM EDT) Pathologist [facility] Adenovirus Detection by PCR Not Detected Not Detected LAB MICROBIOLOGY METHOD 01/31/2025 1:59 AM EDT [facility] Influenza A PCR Not Detected Not Detected LAB MICROBIOLOGY METHOD 01/31/2025 1:59 AM EDT [facility] Influenza B PCR Not Detected Not Detected LAB MICROBIOLOGY METHOD 01/31/2025 1:59 AM EDT [facility] Coronavirus 229E Not Detected Not Detected LAB MICROBIOLOGY METHOD 01/31/2025 1:59 AM EDT [facility] Coronavirus HKU1 Not Detected Not Detected LAB MICROBIOLOGY METHOD 01/31/2025 1:59 AM EDT [facility] Coronavirus OC43 Not Detected Not Detected LAB MICROBIOLOGY METHOD 01/31/2025 1:59 AM EDT [facility] Coronavirus NL63 Not Detected Not Detected LAB MICROBIOLOGY METHOD 01/31/2025 1:59 AM EDT [facility] Parainfluenza Virus 1 Not Detected Not Detected LAB MICROBIOLOGY METHOD 01/31/2025 1:59 AM EDT [facility] Parainfluenza Virus 2 Not Detected Not Detected LAB MICROBIOLOGY METHOD 01/31/2025 1:59 AM EDT [facility] Parainfluenza Virus 3 Not Detected Not Detected LAB MICROBIOLOGY METHOD 01/31/2025 1:59 AM EDT [facility] Parainfluenza Virus 4 Not Detected Not Detected LAB MICROBIOLOGY METHOD 01/31/2025 1:59 AM EDT [facility] RSV PCR Not Detected Not Detected LAB MICROBIOLOGY METHOD 01/31/2025 1:59 AM EDT [facility] Human Metapneumovirus A and B Not Detected Not Detected LAB MICROBIOLOGY METHOD 01/31/2025 1:59 AM EDT [facility] Rhinovirus/Entero virus Not Detected Not Detected LAB MICROBIOLOGY METHOD 01/31/2025 1:59 AM EDT [facility] Bordetella pertussis Not Detected Not Detected LAB MICROBIOLOGY METHOD 01/31/2025 1:59 AM EDT [facility] Bordetella parapertussis Not Detected Not Detected LAB MICROBIOLOGY METHOD 01/31/2025 1:59 AM EDT [facility] Mycoplasma pneumo by PCR Not Detected Not Detected LAB MICROBIOLOGY METHOD 01/31/2025 1:59 AM EDT [facility] Chlamydia pneumoniae Not Detected Not Detected LAB MICROBIOLOGY METHOD 01/31/2025 1:59 AM EDT [facility] SARS COV-2 Detected(A ) Not Detected LAB MICROBIOLOGY METHOD 01/31/2025 1:59 AM EDT [facility] Swab Both anterior nares / Unknown Non-blood Collection / Unknown 01/31/2025 12:34 AM EDT 01/31/2025 12:[address] [facility] - 01/31/2025 1:59 AM EDT Testing was performed using the [employer] Respiratory Pathogen PCR Assay. All results must [...] that are below the limit of detection. Severo Cha MD LAB MICROBIOLOGY - GENERAL ORDERABLES Final Result [facility] [address] [place] [address], [place] [phone] * (ABNORMAL) CBC auto differential (01/31/2025 12:33 AM EDT) [facility] WBC 8.7 4.8 - 10.8 K/mcL LAB HEMETOLOGY METHOD 01/31/2025 1:02 AM [facility] RBC 4.30 3.80 - 4.80 M/mcL LAB HEMETOLOGY METHOD 01/31/2025 1:02 AM [facility] Hemoglobin 11.1(L) 11.5 - 16.0 g/dL LAB HEMETOLOGY METHOD 01/31/2025 1:02 AM [facility] Hematocrit 34.7(L) 35.0 - 47.0 % LAB HEMETOLOGY METHOD 01/31/2025 1:02 AM [facility] MCV 80.3 79.0 - 98.0 FL LAB HEMETOLOGY METHOD 01/31/2025 1:02 AM [facility] MCH 25.7(L) 27.0 - 32.0 pcg LAB HEMETOLOGY METHOD 01/31/2025 1:02 AM [facility] MCHC 32.0 32.0 - 37.0 g/dL LAB HEMETOLOGY METHOD 01/31/2025 1:02 AM [facility] RDW 13.3 11.0 - 15.0 % LAB HEMETOLOGY METHOD 01/31/2025 1:02 AM [facility] Platelets 276 130 - 400 K/mcL LAB HEMETOLOGY METHOD 01/31/2025 1:02 AM [facility] MPV 9.4 7.0 - 11.0 FL LAB HEMETOLOGY METHOD 01/31/2025 1:02 AM [facility] NRBC 0.0 <1.0 % LAB HEMETOLOGY METHOD 01/31/2025 1:02 AM [facility] NRBC Absolute 0.00 <0.10 K/mcL LAB HEMETOLOGY METHOD 01/31/2025 1:02 AM [facility] Neutrophils Relative 73.3 % LAB HEMETOLOGY METHOD 01/31/2025 1:02 AM [facility] Lymphocytes Relative 15.4 % LAB HEMETOLOGY METHOD 01/31/2025 1:02 AM [facility] Monocytes Relative 8.3 % LAB HEMETOLOGY METHOD 01/31/2025 1:02 AM [facility] Eosinophils Relative 2.1 % LAB HEMETOLOGY METHOD 01/31/2025 1:02 AM [facility] Basophils Relative 0.6 % LAB HEMETOLOGY METHOD 01/31/2025 1:02 AM [facility] Immature Granulocytes Relative 0.3 % LAB HEMETOLOGY METHOD 01/31/2025 1:02 AM [facility] Neutrophils Absolute 6.38 1.50 - 7.00 K/mcL LAB HEMETOLOGY METHOD 01/31/2025 1:02 AM [facility] Lymphocytes Absolute 1.34 1.00 - 5.00 K/mcL LAB HEMETOLOGY METHOD 01/31/2025 1:02 AM [facility] Monocytes Absolute 0.72 0.20 - 1.00 K/mcL LAB HEMETOLOGY METHOD 01/31/2025 1:02 AM [facility] Eosinophils Absolute 0.18 0.00 - 0.50 K/mcL LAB HEMETOLOGY METHOD 01/31/2025 1:02 AM [facility] Basophils Absolute 0.05 0.00 - 0.20 K/mcL LAB HEMETOLOGY METHOD 01/31/2025 1:02 AM [facility] Immature Granulocytes Absolute 0.03 0.00 - 0.03 K/mcL LAB HEMETOLOGY METHOD 01/31/2025 1:02 AM [facility] Blood Venous blood specimen / Unknown Venipuncture / Unknown 01/31/2025 12:33 AM EDT 01/31/2025 12:54 AM EDT us Severo Cha MD LAB BLOOD ORDERABLES Final Result [facility] [address] [place] [address], * (ABNORMAL) Basic metabolic panel (01/31/2025 12:33 AM EDT) Sodium 139 133 - 145 mmol/L LAB CHEMISTRY METHOD 01/31/2025 1:27 AM [facility] Potassium 4.5 3.5 - 5.5 mmol/L LAB CHEMISTRY METHOD 01/31/2025 1:27 AM [facility] Chloride 104 96 - 110 mmol/L LAB CHEMISTRY METHOD 01/31/2025 1:27 AM [facility] CO2 27 21 - 32 mmol/L LAB CHEMISTRY METHOD 01/31/2025 1:27 AM [facility] Anion Gap 8 3 - 11 LAB CHEMISTRY METHOD 01/31/2025 1:27 AM [facility] Glucose 104(H) 70 - 100 mg/dL LAB CHEMISTRY METHOD 01/31/2025 1:27 AM [facility] BUN 24 5 - 25 mg/dL LAB CHEMISTRY METHOD 01/31/2025 1:27 AM [facility] Creatinine 1.09 0.50 - 1.10 mg/dL LAB CHEMISTRY METHOD 01/31/2025 1:27 AM [facility] eGFR 50(L) >=60 mL/min/1. 73m2 LAB CHEMISTRY METHOD 01/31/2025 1:27 AM [facility] Comment:Calculation based on the Chronic Kidney Disease Epidemiology Collaboration (CKD-EPI) equation refit without adjustment for race. BUN/Creatinine Ratio 22.0 LAB CHEMISTRY METHOD 01/31/2025 1:27 AM EDT [facility] Calcium 9.0 8.5 - 10.5 mg/dL LAB CHEMISTRY METHOD 01/31/2025 1:27 AM EDT [facility] Blood Venous blood specimen / Unknown Venipuncture / Unknown 01/31/2025 12:33 AM EDT 01/31/2025 12:55 AM EDT us Severo Cha MD LAB BLOOD ORDERABLES Final Result [facility] [address] [place] [address], [place] [phone] documented in this encounter Visit Diagnoses Diagnosis COVID- Primary documented in this encounter Additional Health Concerns Infection Onset Date Last Indicated Resolved Time COVID-19 01/31/2025 01/31/2025 documented as of this encounter 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
--- NOTE | 2025-01-31 11:22 | AM.OFFWIN_ITS ---
Intake Vital Signs 01/31/25 11:23 Height 5 ft 2 in Weight 132 lb 4 oz BMI 24.2 BP 106/40 L Blood Pressure Location Rt brachial Position Sitting Pulse 88 Pulse Source Pulse Oximeter Temp 98.9 F Temp Source Oral Pulse Oximetry (%) 94 Oxygen Delivery Method Room Air Intake Visit Reasons: EP Cough, fever, asthma flare Intake Note: Patient presents with cough asthma and a fever for 4 days no apparent fever today Patient Tobacco Use Status: Never used Tobacco Allergies amlodipine Adverse Reaction (Intermediate, Verified 01/07/25 13:10) leg edema empagliflozin (From Jardiance) Adverse Reaction (Verified 01/07/25 13:10) vaginal candidiasis HPI HPI Comments History of Present Illness Details This is an 84-year-old female with a past medical history of hypertension, hyperlipidemia, mfw-ddcuhvo-mwamjeyvc diabetes, atrial fibrillation currently maintained on Eliquis and COPD/asthma not currently oxygen dependent presenting for evaluation of a fever and cough. Approximately 1 week ago the patient developed a dry cough and 2 days ago she developed subjective fevers for which she is taking Tylenol. Patient states that her cough has not been relieved with her albuterol inhaler. Patient denies having a headache, ear pain, sore throat or chest pain. Patient's last dose of Tylenol was this morning at 9:00 a.m. [facility] Medical History COPD (chronic obstructive pulmonary disease) Left shoulder pain Hyperlipidemia LDL goal <100 Abnormal SPEP Vitamin D deficiency Osteoporosis Age related osteoporosis Physical exam Hypomagnesemia Atrial fibrillation with rapid ventricular response Urinary incontinence Abnormal EKG Screening for osteoporosis Neuropathy Microalbuminuria JONNY (obstructive sleep apnea) Left shoulder pain Anemia GERD (gastroesophageal reflux disease) Coronary artery disease Hypertension Type 2 diabetes mellitus with hyperglycemia Surgical History History of surgery on arm Hx of dilation and curettage Hx of breast biopsy Family History Mother Diabetes mellitus Father No problems noted. Sister Lymphoma Breast cancer Brother Colon cancer Social History Household Members: Family Housing: House Are you a primary senior care manager to a significant other at home: No Do you presently have visiting nurse or other home services: Yes (insurance nurse) Alcohol intake: never Patient Tobacco Use Status: Never used Tobacco e-Cigarette/Vaping Use: Never Used Second Hand Smoke Exposure: No service: No Current occupational status: disabled Cognitive needs: No Hearing needs: No Vision needs: Yes Review of Systems Const All systems reviewed & are unremarkable except as noted in HPI and below Reports no additional complaints, Denies body aches, Denies chills, Reports fatigue, Reports fever(s), Denies headache(s), Reports malaise and Reports weakness Eyes Reports no additional complaints ENT Reports no additional complaints, Denies otalgia, Denies headache(s) and Denies sore throat Card Denies chest pain and Reports dyspnea Resp Reports cough and Reports dyspnea GI Reports no additional complaints, Denies nausea and Denies vomiting Reports no additional complaints Musc Reports no additional complaints Skin/Breast Reports system reviewed and no additional complaints, except as documented Neuro Reports no additional complaints, Denies headache(s) and Reports weakness Psych Reports no additional complaints Endo Reports no additional complaints and Reports fatigue Alen/Lymph Reports no additional complaints Aller/Immun Reports no additional complaints Physical Exam Vital Signs: Last Vital Signs Temp 98.9 F 01/31/25 11:23 Pulse 88 01/31/25 11:23 BP 106/40 L 01/31/25 11:23 Pulse Ox 94 01/31/25 11:23 Oxygen Delivery Method Room Air 01/31/25 11:23 BMI result Body Mass Index 24.2 Repeat BP 112/48 sitting, 104/46 standing, patient is afebrile. Const Other: Daughter present and interpreting Wallisian for this interview and examination General: cooperative, no acute distress and awake Nutritional Appearance: average body habitus Orientation/consciousness: patient oriented x3 Limitations: no limitations HEENT Ears: hearing grossly normal bilaterally, external ears normal, TM's normal bilaterally and EAC's normal General nose exam: Normal external nose present Face and sinus: Yes normal facial exam Mouth: Normal oral and palatal mucosa present Throat: Yes posterior oropharynx normal and Yes uvula midline Resp Effort & Inspection: no audible wheezes, no cough, no nasal flaring and not tachypneic Auscultation: clear to auscultation bilaterally Cardio Rate: regular rate Rhythm: regular rhythm Skin Other: Warm, dry, no cutaneous findings Neuro General: patient oriented x3 Psych Appearance: grossly normal Mental Status: mental status grossly normal Insight: Good insight present (Psych) Judgement: Good judgement present (Psych) Assessment & Plan Assessment & Plan (1) Bronchitis: Comment: There are no acute findings noted on chest x-ray. Patient's blood pressure is low however she is not orthostatic or lightheaded at this time. Patient is afebrile. Patient will be discharged home. Code(s): J40 - Bronchitis, not specified as acute or chronic Plan: Tylenol as needed for fever, increase clear fluids daily, follow up for any worsening symptoms including worsening cough, chest pain or lightheadedness. Orders: Orders XR chest 2V Today R05.9 - Cough, unspecified, R50.9 - Fever, unspecified Coding Level of Care Code Est Pt Level 3 (80760) Diagnoses Bronchitis J40 Time Spent (min) 25
[2025-01-31 11:23] VITALS: BP 106/40; PULSE 88; TEMP 37.2; O2SAT 94; BMI 24.2
--- OUTSIDE RECORDS SUMMARY | 2025-01-31 11:53 | XMS_ITS | Clinical Summary ---
Author Organization [facility]. Address [address] [address] Phone Care Team Providers Care Network Control Operators Supervisor Name Role Phone Pam Wills MD Primary Care Provider [phone] Allergies No known active allergies Medications amLODIPine [...] Office Visit [facility] [address].. [address] [address] Jaylon Barreto MD [address] [address] Health Maintenance Due Date Last Done Comments Diabetes: Ophthalmology Exam 05/11/2021 Diabetes: Pedal Pulse Checked 05/11/2021 Diabetes: Sensory Foot Exam 05/11/2021 Diabetes: Visual Foot Exam 05/11/2021 Diabetes: Hemoglobin A1C 12/02/2024 025, 06/05/2019, 11/13/2015 Influenza Vaccine (#1) 2025 05/29/2015 Pneumococcal Vaccine: 50+ Years Completed [...] Recently Relevant to Health Maintenance Insurance UHC Medicare [facility] UHC Medicare Care Teams Network Control Operators Supervisor Relationship Specialty Start Date End Date Pam Wills MD [address] [place], [place] PCP - General Internal Medicine 05/11/21
--- OUTSIDE RECORDS SUMMARY | 2025-01-31 11:53 | XMS_ITS | Clinical Summary ---
Author Organization [facility] Address [address] [place] [address] Care Team Providers Care Mandate Retail Service Merchandiser Name Role Phone Pam Wills MD Primary [...] 76 04/11/2022 8:04 AM EDT Temperature 36.7 C (98 F) 04/11/2022 8:04 AM EDT Respiratory Rate - [...] 1-dose 75+ series) 2014 Influenza Vaccine (#1) 2025 05/03/2017 Pneumococcal Vaccine Completed 05/03/2017, 05/01/2015 Hepatitis B Vaccines Aged Out No long er eligible based on patient's age to complete this topic RSV Ped < 20 months Aged Out No longe r eligible based on patient's age to complete this topic Care Teams Mandate Retail Service Merchandiser Relationship Specialty Start Date End Date Pam Wills MD [address] [facility] , [address] [facility] D/B/A: [facility] MERYL Braga [address] PCP - General Internal Medicine 02/02/22
== END 2025-01-31 12:36 | disposition home or self-care (01) ==
PROVIDERS: PCP Internal Medicine; Visit Provider Physician Assistant
DX: J40 Bronchitis, not specified as acute or chronic (principal)

== ENCOUNTER 2025-01-31 11:20 | Outpatient (REF) | payer MEDICARE, OTHER, MEDICAID, SELFPAY ==
--- NOTE | ~2025-01-31 | XR_ITS ---
EXAMINATION: XR CHEST CLINICAL INFORMATION: R05.9 - Cough, unspecified COMPARISON: June 24, 2024. TECHNIQUE: 2 views of the chest were obtained. FINDINGS: Hyperinflated lungs. Pulmonary reticular pattern. No consolidation, pleural effusion or pneumothorax. Cardiomediastinal silhouette size is normal. Calcified plaque thoracic arch. Multilevel thoracolumbar spondylosis. Osteopenia versus the process. Radiopaque anchors in the right humeral head. XR/XR chest 2V IMPRESSION: Chronic interstitial lung disease without acute airspace disease. Multilevel spondylosis. Electronically signed by: Emil Orozco MD 01/31/2025 12:10 PM EDT
== END 2025-01-31 11:21 | disposition home or self-care (01) ==
LOC: HO.HMGCX 11:20
PROVIDERS: PCP Internal Medicine; Visit Provider Physician Assistant
DX: J40 Bronchitis, not specified as acute or chronic (principal)
CPT/HCPCS: 71046; 99212

== ENCOUNTER → 2025-01-31 11:47 | Outpatient (BNV) | payer MEDICARE, OTHER, MEDICAID, SELFPAY | PROVIDERS: PCP Internal Medicine; Visit Provider Radiology Diagnostic Radiology | DX: J84.9 Interstitial pulmonary disease, unspecified (principal); M47.9 Spondylosis, unspecified | CPT/HCPCS: 71046 ==

== ENCOUNTER 2025-02-01 11:54 | Outpatient (AMB) | payer MEDICARE, OTHER, MEDICAID, SELFPAY ==
--- OUTSIDE RECORDS SUMMARY | 2025-01-31 02:42 | XMS_ITS | Encounter Summary ---
Author Organization [facility] Address [address] [place] [address] [address] Team Prov[address] Care Drive Thru Order Taker Name Role Phone Pam Montoya MD Primary Care Provider [phone] Reason for Visit * Reason Comments Cough Fever Encounter Details Date Type Department Care Team (Late st Contact Info) Description 01/31/2025 2:42 AM EDT - 01/31/2025 5:32 AM EDT Emergency [facility] Emergency [address] [place] [address] Severo Cha MD [address] [place] [address] COVID (Primary Dx) Discharge Disposition: Home or [...] (COVID 19): Caring for Yourself: Quick List (Kiswahili) documented in this encounter Medications at Time [...] Discharge instructions reviewed, printed copy provided in Kiswahili. Pt verbalized understanding. Pt refusing vitals upon [...] pain, abdominal pain, nausea, vomiting, urinary symptoms [place] Coma Scale Score: 15 Patient History Past Medical History: Diagnosis Date Adrenal adenoma 10/21/2016 DX:Adrenal adenoma Allergic rhinitis 04/25/2017 DX:Allergic rhinitis Anxiety 10/09/2015 DX:Anxiety Arthritis 05/01/2015 DX:Arthritis Asthma 04/25/2017 DX:Asthma CAD (coronary artery disease) 05/01/2015 DX:CAD (coronary artery disease) Diabetes mellitus type 2 with neurological manifestations (CMS/HCC V24, CMS/HCC V28) 05/03/2017 DX:Diabetes mellitus type 2 with neurological manifestations ([facility]) Hyperlipidemia 05/03/2017 DX:Hyperlipidemia Hypertension 05/03/2017 DX:Hypertension Insomnia [...] 10:45 AM EDT Office Visit Pulmonolgy - [place] [address] [facility] [address] [place] [phone] Fco Parsons MD [address] [facility] [address] [place] [address] 06/17/2025 2:00 PM EST Office Visit Infectious Disease - [place] [address] [facility] [address] [place] [phone] Natalie Govea MD [address] [facility] [address] [place] [address] Pending Results Name Type Priority Associated Diagnoses Date /Time Culture throat Microbiology STAT 02/01/20 4:10 AM EDT documented as of this encounter Procedures Procedure Name Priority Date/Time Associated Diagnosis Comments RAPID STREP A SCREEN STAT 01/31/2025 4:10 AM EDT CULTURE THROAT STAT 01/31/2025 4:10 AM EDT XR CHEST [...] Negative Negative, Invalid 01/31/2025 5:29 AM EDT [facility] Comment:Refer to Throat Cult ure. Swab Structure of anterior portion of neck / Unknown Non-blood Collection / Unknown 01/31/2025 4:10 AM EDT 01/31/2025 4:36 AM EDT Severo Cha MD LAB MICROBIOLOGY - GENERAL ORDERABLES Final Result [facility] [address] [place] [address], * XR Chest 2 Views (01/31/2025 1:50 AM EDT) Anatomical Region Laterality Modality Body Radiographic Rosey ging 01/31/2025 9:55 AM EDT Impressions 01/31/2025 9:56 AM EDT No acute cardiopulmonary findings. -------- FINAL REPORT -------- Dictated By: Alvin Saenz Dictated Date: 01/31/2025 09:55 ET Assigned Physician: Alvin Saenz Reviewed and Electronically Signed By: Alvin Saenz Signed Date: 01/31/2025 09:56 ET Workstation ID: [id number] Transcribed By: Self Edit Transcribed Date: 01/31/2025 [...] Signed Date: 01/31/2025 09:56 ET Workstation ID: [id number] Transcribed By: Self Edit Transcribed Date: 01/31/2025 09:55 ET us Severo Cha MD IMG XR PROCEDURES Final Res ult * (ABNORMAL) Respiratory virus panel molecular study (01/31/2025 12:34 AM EDT) Adenovirus Detection by PCR Not Detected Not Detected LAB MICROBIOLOGY METHOD 01/31/2025 1:59 AM EDT [facility] Influenza A PCR Not Detected Not Detected LAB MICROBIOLOGY METHOD 01/31/2025 1:59 AM EDT [facility] Influenza B PCR Not Detected Not Detected LAB MICROBIOLOGY METHOD 01/31/2025 1:59 AM EDT [facility] Coronavirus 229E Not Detected Not Detected LAB MICROBIOLOGY METHOD 01/31/2025 1:59 AM EDT [facility] Coronavirus HKU1 Not Detected Not Detected LAB MICROBIOLOGY METHOD 01/31/2025 1:59 AM EDT [facility] Coronavirus OC43 Not Detected Not Detected LAB MICROBIOLOGY METHOD 01/31/2025 1:59 AM EDT [facility] Coronavirus NL63 Not Detected Not Detected LAB MICROBIOLOGY METHOD 01/31/2025 1:59 AM EDT [facility] Parainfluenza Virus 1 Not Detected Not Detected LAB MICROBIOLOGY METHOD 01/31/2025 1:59 AM EDT [facility] Parainfluenza Virus 2 Not Detected Not Detected LAB MICROBIOLOGY METHOD 01/31/2025 1:59 AM EDT [facility] Parainfluenza Virus 3 Not Detected Not Detected LAB MICROBIOLOGY METHOD 01/31/2025 1:59 AM EDT [facility] Parainfluenza Virus 4 Not Detected Not Detected LAB MICROBIOLOGY METHOD 01/31/2025 1:59 AM EDT [facility] RSV PCR Not Detected Not Detected LAB MICROBIOLOGY METHOD 01/31/2025 1:59 AM EDT [facility] Human Metapneumovirus A and B Not Detected Not Detected LAB MICROBIOLOGY METHOD 01/31/2025 1:59 AM EDT [facility] Rhinovirus/Entero virus Not Detected Not Detected LAB MICROBIOLOGY METHOD 01/31/2025 1:59 AM EDT [facility] Bordetella pertussis Not Detected Not Detected LAB MICROBIOLOGY METHOD 01/31/2025 1:59 AM EDT [facility] Bordetella parapertussis Not Detected Not Detected LAB MICROBIOLOGY METHOD 01/31/2025 1:59 AM EDT [facility] Mycoplasma pneumo by PCR Not Detected Not Detected LAB MICROBIOLOGY METHOD 01/31/2025 1:59 AM EDT [facility] Chlamydia pneumoniae Not Detected Not Detected LAB MICROBIOLOGY METHOD 01/31/2025 1:59 AM EDT [facility] SARS COV-2 Detected(A ) Not Detected LAB MICROBIOLOGY METHOD 01/31/2025 1:59 AM EDT [facility] Swab Both anterior nares / Unknown Non-blood Collection / Unknown 01/31/2025 12:34 AM EDT 01/31/2025 12:56 AM EDT [facility] - 01/31/2025 1:59 AM EDT Testing was performed using the [employer] - ASOe Respiratory Pathogen PCR Assay. All results must [...] are below the limit of detection. us Severo Cha MD LAB MICROBIOLOGY - GENERAL ORDERABLES Final Result [facility] [address] [place] [address], * (ABNORMAL) CBC auto differential (01/31/2025 12:33 AM EDT) [facility] [address] WBC 8.7 4.8 - 10.8 K/mcL LAB HEMETOLOGY METHOD 01/31/2025 1:02 AM [facility] RBC 4.30 3.80 - 4.80 M/mcL LAB HEMETOLOGY METHOD 01/31/2025 1:02 AM [facility] Hemoglobin 11.1(L) 11.5 - 16.0 g/dL LAB HEMETOLOGY METHOD 01/31/2025 1:02 AM [facility] Hematocrit 34.7(L) 35.0 - 47.0 % LAB HEMETOLOGY METHOD 01/31/2025 1:02 AM [facility] MCV 80.3 79.0 - 98.0 FL LAB HEMETOLOGY METHOD 01/31/2025 1:02 AM [facility] MCH 25.7(L) 27.0 - 32.0 pcg LAB HEMETOLOGY METHOD 01/31/2025 1:02 AM [facility] MCHC 32.0 32.0 - 37.0 g/dL LAB HEMETOLOGY METHOD 01/31/2025 1:02 AM [facility] RDW 13.3 11.0 - 15.0 % LAB HEMETOLOGY METHOD 01/31/2025 1:02 AM [facility] Platelets 276 130 - 400 K/mcL LAB HEMETOLOGY METHOD 01/31/2025 1:02 AM [facility] MPV 9.4 7.0 - 11.0 FL LAB HEMETOLOGY METHOD 01/31/2025 1:02 AM [facility] NRBC 0.0 <1.0 % LAB HEMETOLOGY METHOD 01/31/2025 1:02 AM [facility] NRBC Absolute 0.00 <0.10 K/mcL LAB HEMETOLOGY METHOD 01/31/2025 1:02 AM [facility] Neutrophils Relative 73.3 % LAB HEMETOLOGY METHOD 01/31/2025 1:02 AM [facility] Lymphocytes Relative 15.4 % LAB HEMETOLOGY METHOD 01/31/2025 1:02 AM [facility] Monocytes Relative 8.3 % LAB HEMETOLOGY METHOD 01/31/2025 1:02 AM [facility] Eosinophils Relative 2.1 % LAB HEMETOLOGY METHOD 01/31/2025 1:02 AM [facility] Basophils Relative 0.6 % LAB HEMETOLOGY METHOD 01/31/2025 1:02 AM [facility] Immature Granulocytes Relative 0.3 % LAB HEMETOLOGY METHOD 01/31/2025 1:02 AM [facility] Neutrophils Absolute 6.38 1.50 - 7.00 K/mcL LAB HEMETOLOGY METHOD 01/31/2025 1:02 AM [facility] Lymphocytes Absolute 1.34 1.00 - 5.00 K/mcL LAB HEMETOLOGY METHOD 01/31/2025 1:02 AM [facility] Monocytes Absolute 0.72 0.20 - 1.00 K/mcL LAB HEMETOLOGY METHOD 01/31/2025 1:02 AM [facility] Eosinophils Absolute 0.18 0.00 - 0.50 K/mcL LAB HEMETOLOGY METHOD 01/31/2025 1:02 AM [facility] Basophils Absolute 0.05 0.00 - 0.20 K/mcL LAB HEMETOLOGY METHOD 01/31/2025 1:02 AM [facility] Immature Granulocytes Absolute 0.03 0.00 - 0.03 K/mcL LAB HEMETOLOGY METHOD 01/31/2025 1:02 AM [facility] Blood Venous blood specimen / Unknown Venipuncture / Unknown 01/31/2025 12:33 AM EDT 01/31/2025 12:54 AM EDT Severo Cha MD LAB BLOOD ORDERABLES Final Result [facility] [address] [place] [address], * (ABNORMAL) Basic metabolic panel (01/31/2025 12:33 AM EDT) Sodium 139 133 - 145 mmol/L LAB CHEMISTRY METHOD 01/31/2025 1:27 AM [facility] Potassium 4.5 3.5 - 5.5 mmol/L LAB CHEMISTRY METHOD 01/31/2025 1:27 AM [facility] Chloride 104 96 - 110 mmol/L LAB CHEMISTRY METHOD 01/31/2025 1:27 AM [facility] CO2 27 21 - 32 mmol/L LAB CHEMISTRY METHOD 01/31/2025 1:27 AM [facility] Anion Gap 8 3 - 11 LAB CHEMISTRY METHOD 01/31/2025 1:27 AM [facility] Glucose 104(H) 70 - 100 mg/dL LAB CHEMISTRY METHOD 01/31/2025 1:27 AM [facility] BUN 24 5 - 25 mg/dL LAB CHEMISTRY METHOD 01/31/2025 1:27 AM [facility] Creatinine 1.09 0.50 - 1.10 mg/dL LAB CHEMISTRY METHOD 01/31/2025 1:27 AM [facility] eGFR 50(L) >=60 mL/min/1. 73m2 LAB CHEMISTRY METHOD 01/31/2025 1:27 AM [facility] Comment:Calculation based on the Chronic Kidney Disease Epidemiology Collaboration (CKD-EPI) equation refit without adjustment for race. BUN/Creatinine Ratio 22.0 LAB CHEMISTRY METHOD 01/31/2025 1:27 AM EDT [facility] Calcium 9.0 8.5 - 10.5 mg/dL LAB CHEMISTRY METHOD 01/31/2025 1:27 AM EDT [facility] Blood Venous blood specimen / Unknown Venipuncture / Unknown 01/31/2025 12:33 AM EDT 01/31/2025 12:55 AM EDT us Severo Cha MD LAB BLOOD ORDERABLES Final Result [facility] [address] [place] [address], documented in this encounter Visit Diagnoses Diagnosis COVID- Primary documented in this encounter Additional Health Concerns Infection Onset Date Last Indicated Resolved Time COVID-19 01/31/2025 01/31/2025 documented as of this encounter Care Teams Drive Thru Order Taker Relationship Specialty Start Date End Date Pam Montoya MD [address] [facility] , [address] [facility] D/B/A: [facility] MERYL Braga PCP - General Internal Medicine 10/30/24 documented as of this encounter
--- OUTSIDE RECORDS SUMMARY | 2025-02-01 11:56 | XMS_ITS | Clinical Summary ---
Author Organization [facility] Address [address] [place] [address] Care Team Providers Care Can Operator Name Role Phone Pam Wills MD [...] age to complete this topic Care Teams Can Operator Relationship Specialty Start Date End Date Pam Wills MD [address] [facility] , [address] [facility] D/B/A: [facility] MERYL Braga [address] PCP - General Internal Medicine 02/02/22
[2025-02-01 12:27] VITALS: BP 90/48; PULSE 68; RESP 16; TEMP 36.9; O2SAT 95; BMI 24.1
--- NOTE | 2025-02-01 12:27 | MHC.OFFWIV ---
Intake Vital Signs 02/01/25 12:27 Height 5 ft 2 in Weight 132 lb BMI 24.1 BP 90/48 L Blood Pressure Location Rt brachial Position Sitting Respiration 16 Pulse 68 Pulse Source Pulse Oximeter Temp 98.5 F Temp Source Oral Pulse Oximetry (%) 95 Oxygen Delivery Method Room Air Intake Visit Reasons: EP Asthma, fever, cough, mucus Intake Note: Pt is here today c/o coughing up thick mucus especially at night: Pt was seen yesterday at our walkin and had CXR done: hx of asthma and COPD. Patient Tobacco Use Status: Never used Tobacco Allergies amlodipine Adverse Reaction (Intermediate, Verified 02/17/25 16:53) leg edema empagliflozin (From Jardiance) Adverse Reaction (Verified 02/17/25 16:53) vaginal candidiasis HPI EP Asthma, fever, cough, mucus HPI Details Patient is an 84-year-old Macedonian-speaking female with emphysema type COPD, who was evaluated in the walk-in yesterday for complaint of persistent cough and feeling feverish for a few days. She was diagnosed with bronchitis but apparently lung sounds were clear and chest x-ray looked normal, so it was not considered a COPD exacerbation. Virus panel not done. She was advised to continue Tylenol as needed. However last night she started to develop increased mucus production, and had much difficulty sleeping. Her daughter brings her in today as she is worried that she will develop into a worsening exacerbation, which she has done so in the past. She has not started guaifenesin, as daughter is worried that this will increase her blood pressure. She denies shortness of breath, chest pain, current fever or chills, nausea vomiting or diarrhea, headache or dizziness, weakness, myalgias or malaise, loss of sense of taste or smell, or other significant associated symptoms. [facility] Medical History COPD (chronic obstructive pulmonary disease) Left shoulder pain Hyperlipidemia LDL goal <100 Abnormal SPEP Vitamin D deficiency Osteoporosis Age related osteoporosis Physical exam Hypomagnesemia Atrial fibrillation with rapid ventricular response Urinary incontinence Abnormal EKG Screening for osteoporosis Neuropathy Microalbuminuria JONNY (obstructive sleep apnea) Left shoulder pain Anemia GERD (gastroesophageal reflux disease) Coronary artery disease Hypertension Type 2 diabetes mellitus with hyperglycemia Surgical History History of surgery on arm Hx of dilation and curettage Hx of breast biopsy Family History (Updated 02/17/25 @ 17:02 by Pam Montoya MD) Mother Diabetes mellitus Father CAD (coronary artery disease) Sister Lymphoma Breast cancer Brother Colon cancer Social History Household Members: Family Housing: House Are you a primary healthcare administrative assistant to a significant other at home: No Do you presently have visiting nurse or other home services: Yes (insurance nurse) Alcohol intake: never Patient Tobacco Use Status: Never used Tobacco e-Cigarette/Vaping Use: Never Used Second Hand Smoke Exposure: No service: No Current occupational status: disabled Cognitive needs: No Hearing needs: No Vision needs: Yes Review of Systems Const All systems reviewed & are unremarkable except as noted in HPI and below Physical Exam Vital Signs: Last Vital Signs Temp 98.5 F 02/01/25 12:27 Pulse 68 02/01/25 12:27 Resp 16 02/01/25 12:27 BP 90/48 L 02/01/25 12:27 Pulse Ox 95 02/01/25 12:27 Oxygen Delivery Method Room Air 02/01/25 12:27 BMI result Body Mass Index 24.1 Const General: cooperative, comfortable, no acute distress, alert, awake, Physically active and well groomed; No anxious, diaphoretic, intoxicated appearing, poor hygiene or tired appearing Nutritional Appearance: average body habitus Orientation/consciousness: oriented to person HEENT Head: Yes normal to inspection, Yes normocephalic and Yes atraumatic Ears: hearing grossly normal bilaterally, external ears normal, TM's normal bilaterally and EAC's normal General nose exam: Normal external nose present, Normal nasal mucous membranes and turbinates present, Normal septum present and No nasal discharge present Mouth: Normal oral and palatal mucosa present, lip normal and tongue normal Throat: Yes uvula midline, Yes abnormal tonsil (mildly erythematous bilaterally), No peritonsillar mass, Yes postnasal drainage, No uvular edema and No cobblestoning Eyes General: appearance normal, both eyes and all related structures Neck Neck: Yes normal visual inspection, Yes no lymphadenopathy, Yes trachea midline, Yes supple and No anterior neck swelling Chest Chest palpation & inspection: normal palpation of entire chest wall Resp Effort & Inspection: normal respiratory effort, able to speak in complete sentences, normal respiratory pattern, no audible wheezes, Actively coughing (Frequent dry cough), respiratory effort not decreased, no grunting, not labored, no nasal flaring, no paradoxical thoraco-abdom movements, no pursed lip breathing, no respiratory distress, no retractions, no stridor, not tachypneic, no tracheal deviation, no tripod positioning, no use of accessory muscles, No prolonged expiratory phase and symmetric chest movement Auscultation: clear to auscultation bilaterally, no crackles, no rales, no rhonchi, no wheezes, diminished lung sounds and No rub present Cardio Palpation: normal PMI Rate: regular rate Skin Other: Good color, warm and dry Neuro General: oriented to person Psych Appearance: grossly normal Mental Status: mental status grossly normal Speech and movement: Normal speech and movement present Affect: normal affect Attitude: cooperative Assessment & Plan Assessment & Plan (1) COPD exacerbation: Code(s): J44.1 - Chronic obstructive pulmonary disease with (acute) exacerbation Plan Patient has emphysema type COPD, and was evaluated in the walk-in yesterday, found to have bronchitis but apparently lung sounds were clear and chest x-ray looked normal. So she was not started on prednisone or antibiotic therapy for COPD exacerbation at that time. However last night she started to develop increased mucus production, and had much difficulty sleeping. We discussed that due to her increased cough and increased mucus production, that we should consider this a COPD exacerbation at this point, and I will put her on an antibiotic and trial Tessalon Perles. I also advised that she consider trialing guaifenesin for the mucus, however not Mucinex DM. She is hypotensive, but does not complain of dizziness in his not orthostatic. I think she needs to increase her oral fluid intake, and this will help with the guaifenesin effect on the mucus production also. Also put through a prednisone taper, which she can start if symptoms are not improving by tomorrow, or worsen in regards to developing any shortness of breath, chest tightness, or coughing fits. At this point however, she is using albuterol inhaler and nebulizer, and she is not having any trouble breathing. Her oxygen saturation at room air is 95%, which is baseline for her. I swabbed her to rule out viruses, and she is pending flu COVID and RSV results. They were amenable to this plan, and they do see Dr. Shahid, who they could follow up with if symptoms persist or worsen, or they know to go to the emergency department with worrisome symptoms. Orders: Orders SARS-CoV2/FLU/RSV 02/01/25 J06.9 - Acute upper respiratory infection, unspecified Medications: New prednisone then take 2 and half tabs daily for 3 days, then take 2 tabs daily for 3 days, then take 1 and half tabs daily for 3 days, and then take 1 tab daily for 3 days 60 mg (3 x 20 mg) PO DAILY 30 tabs 0RF 3 days azithromycin For 250 mg dose pack: take 500 mg today (day 1), then 250 mg for 4 days (days 2-5) PO 6 tabs 0RF benzonatate 200 mg PO BID-TID PRN 30 caps 0RF cough Coding Level of Care Code Est Pt Level 4 (63164) Diagnoses COPD exacerbation J44.1
== END 2025-02-01 13:57 | disposition home or self-care (01) ==
PROVIDERS: PCP Internal Medicine; Visit Provider Physician Assistant Medical
DX: J44.1 Chronic obstructive pulmonary disease with (acute) exacerbation (principal)

== ENCOUNTER 2025-02-01 11:54 | Outpatient (REF) | payer MEDICARE, OTHER, MEDICAID, SELFPAY ==
[2025-02-01 16:38] LABS: Resp Syncy Virus RNA Qual PCR NEGATIVE (Negative); SARS COV2 PCR INHOUSE POSITIVE (Negative)
== END 2025-02-01 11:55 | disposition home or self-care (01) ==
LOC: HO.LNP 11:54
PROVIDERS: PCP Internal Medicine; Visit Provider Physician Assistant Medical
DX: J44.1 Chronic obstructive pulmonary disease with (acute) exacerbation (principal); J06.9 Acute upper respiratory infection, unspecified; I95.9 Hypotension, unspecified; R50.9 Fever, unspecified; R05.9 Cough, unspecified; Z79.51 Long term (current) use of inhaled steroids; Z79.899 Other long term (current) drug therapy
CPT/HCPCS: 87637; 99212

== ENCOUNTER 2025-02-08 08:11 | Outpatient (REF) | payer MEDICARE, OTHER, MEDICAID, SELFPAY ==
--- OUTSIDE RECORDS SUMMARY | 2025-02-08 08:13 | XMS_ITS | Clinical Summary ---
Author Organization [address] [facility] Address [address] [place] [address] Phone Care Team Providers Care Sheet Tailer Name Role Phone Pam Montoya MD Primary Care Provider [phone] Allergies No known active allergies Medications magnesium [...] mouth 1 (one) time each day. 01/11/2022 Active dulaglutide (Trulicity) 1.5 mg/0.5 mL pen injector injection Inject 0.5 mL (1.5 mg total) under the skin 1 (one) time per week. Monday12/09/2020 Active gabapentin (NEURONTIN) 100 mg capsule Take 1 capsule (100 mg total) by mouth at bedtime. 11/12/2019 Active metFORMIN (GLUCOPHAGE) 1,000 mg tablet Take 1 tablet (1,000 mg total) by mouth 2 (two) times a day with meals. 11/12/2019 Active omeprazole (PriLOSEC) [address] capsule Take 1 capsule (20 mg total) by mouth 1 (one) time each day. 05/05/2020 Active tiZANidine (ZANAFLEX) 2 mg tablet Take [...] by mouth every 7 (seven) days. 08/22/2024 Active rosuvastatin (CRESTOR) 10 mg tablet Take 1 tablet (10 mg total) by mouth 1 (one) time each day. 08/11/2024 Active fluticasone-salm eterol (ADVAIR DISKUS) 250-50 mcg/dose diskus inhaler Inhale 1 puff by mouth 2 (two) times a day. 1 each 11 10/22/2024 10/23/19 26 Active albuterol HFA (PROAIR HFA ; PROVENTIL HFA ; VENTOLIN HFA) 90 mcg/actuation inhaler Inhale 2 puffs by mouth every 6 (six) hours if needed for wheezing. 6.7 g 3 10/22/2024 10/23/19 26 Active losartan (COZAAR) 25 mg tablet Take 1 tablet (25 mg total) by mouth 1 (one) time each day. 10/16/2024 Active pioglitazone (ACTOS) 30 mg tablet Take 1 tablet (30 mg total) by mouth 1 (one) time each day. 10/16/2024 Active isosorbide mononitrate (IMDUR) 60 mg 24 hr tablet Take 1 tablet (60 mg total) by mouth 1 (one) time each day. Do not crush or chew. 30 each 10/31/2024 11/01/19 26 Active metoprolol succinate (TOPROL-XL) 200 mg 24 hr tablet Take 0.5 tablets (100 mg total) by mouth daily. Active metoprolol tartrate (LOPRESSOR) 100 mg tablet Take 1 tablet (100 mg total) by mouth. Active albuterol HFA (PROAIR HFA ; PROVENTIL HFA ; VENTOLIN HFA) 90 mcg/actuation inhaler Inhale 1-2 puffs by mouth every 4 (four) hours if needed for wheezing. 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 Govea on November 2024 Diabetes mellitus type 2 wit h neurological manifestations ([facility] [place], [facility] V28) 05/03/2017 Hyperlipidemia 05/03/2017 Hypertension 05/03/2017 Allergic rhinitis 04/25/2017 Asthma-COPD overlap syndrome ([facility] V24, [facility] V28) 04/25/2017 Overview (04/03/2024): Last Assessment [...] unspecified organism, unspecified acute renal failure type ([facility] V24, [facility] V28) 09/04/2024 09/06/2024 Encounters Date Type Department Care Team Description 01/31/2025 2:42 AM EDT - 01/31/2025 5:32 AM EDT Emergency [facility] Emergency [address] [place] [address] Severo Cha MD COVID (Primary Dx) Discharge Disposition: Home or Self Care 12/03/2024 1:30 PM EDT Office Visit Infectious Disease - [place] [address] [facility] [address] [place] [address] Natalie Govea MD MAI (mycobacterium avium-intracellulare ) ([facility] V24, [facility] V28) (Primary Dx) 11/20/2024 7:30 AM EDT Ancillary Procedure [facility] [address] [place] [address] Chest pain at rest from Last 3 Months Immunizations Name Administration [...] mellitus type 2 wit h neurological manifestations ([facility] V24, [facility] V28) 05/03/2017 DX:Diabetes mellitus type 2 with neurological manifestations ([facility]) Hyperlipidemia 05/03/2017 DX:Hyperlipidemi a Hypertension 05/03/2017 [...] Mass Index 24.09 01/31/2025 12:25 AM EDT Plan of Treatment Upcoming Encounters Date Type Department Care Team (Late st Contact Info) Description 05/08/2025 10:45 AM EDT Office Visit Pulmonolgy - [place] [address] [address] Fco Parsons MD [address] [address] 06/17/2025 2:00 PM EST Office Visit Infectious Disease - [place] [address] [phone] Natalie Govea MD [address] [address] Health Maintenance Due Date Last Done Comments Diabetes: Annual Foot Exam 1950 Diabetes: Annual Retina Eye Exam 1950 DTaP,Tdap,and Td Vaccines (1 - Tdap) 1958 Zoster Vaccines (1 of 2) 1989 RSV Immunization Adult Patients (1 - 1-dose 75+ series) 2014 Medicare Annual Wellness Visit 06/26/2022 Osteoporosis Screening (Bone Density Screening) 06/26/2022 Social Influencers of Health Screening 06/26/2022 Diabetes: Annual Urine Albumin-Creatinine Ratio (uACR) 07/09/2022 06/05/2019 COVID-19 Vaccine ( season) 2024 Breast Cancer Screening 04/04/2024 07/11/20 19, 07/01/2019, 06/28/2018 Cholesterol Screening (Lipid Panel) 06/05/2024 06/05/2019 Depression Screening 07/24/2024 Diabetes: Blood Sugar Control Test (HGBA1C) 03/04/2025 09/04/2024, 06/05/2019, 06/05/2019 Influenza Vaccine (#1) 2025 05/03/2017, 2014 Falls Risk Assessment 09/06/2025 09/06/2024 Diabetes: Annual GFR (Glomerular Filtration Rate) 01/31/2026 01/31/2025, 10/31/2024, 10/30/2024, Additional history exists Hypertension/CHF/CAD Annual BMP Blood Test 01/31/2026 01/31/2025, 10/31/2024, 10/30/2024, Additional history exists Pneumococcal Vaccine: 50+ Years [...] Procedure Name Priority Date/Time Associated Diagnosis Comments CULTURE THROAT STAT 01/31/2025 4:10 AM EDT RAPID STREP A SCREEN STAT 01/31/2025 4:10 AM EDT XR CHEST 2 VIEWS STAT 01/31/2025 1:5 0 AM EDT RESPIRATORY VIRUS PANEL MOLECULAR STUDY STAT 01/31/2025 12:34 AM EDT CBC WITH AUTO DIFFERENTIAL STAT 01/31/2025 12:33 AM EDT BASIC METABOLIC PANEL STAT 01/31/2025 12:33 AM EDT CBC AND DIFFERENTIAL STAT 01/31/2025 12:33 AM EDT NM LEXISCAN STRESS TEST W/ MYOCARDIAL PERFUSION Routine 11/20/2024 10:37 AM EDT Chest pain at rest HEMOGLOBIN A1C Add-On 09/04/2024 9:10 AM EST DOMINIC SCREENING DIGITAL Routine 07/01/2019 4:51 PM EST Encounter for screening mammogram for malignant neoplasm of breast HM URINE ALBUMIN CREATININE RATIO Routine 06/05/2019 LIPID PANEL Routine 06/05/2019 from Last 3 Months or Most Recently Relevant to Health Maintenance Results * Rapid strep A screen (01/31/2025 4:10 AM EDT) Strep A Ag Negative Negative, Invalid 01/31/2025 5:29 AM EDT [facility] Comment:Refer to Throat Cult ure. Swab Structure of anterior portion of neck / Unknown Non-blood Collection / Unknown 01/31/2025 4:10 AM EDT 01/31/2025 4:36 AM EDT us Severo Cha MD LAB MICROBIOLOGY - GENERAL ORDERABLES Final Result [facility] [address] [place] [address], [place] [phone] * Culture throat (01/31/2025 4:10 AM EDT) Culture, Throat No pathogens isolated. 02/02/2025 9:10 AM EDT [facility] Swab Structure of anterior portion of neck / Unknown Non-blood Collection / Unknown 01/31/2025 4:10 AM EDT 01/31/2025 4:36 AM EDT Severo Cha MD LAB MICROBIOLOGY - GENERAL ORDERABLES Final Result [facility] [address] [place] [address], [place] [phone] * XR Chest 2 Views (01/31/2025 1:50 AM EDT) Anatomical Region Laterality Modality Body Radiographic Rosey ging 01/31/2025 9:55 AM EDT Impressions 01/31/2025 9:56 AM EDT No acute cardiopulmonary findings. -------- FINAL REPORT -------- Dictated By: Alvin Saenz Dictated Date: 01/31/2025 09:55 ET Assigned Physician: Alvin Saenz Reviewed and Electronically Signed By: Alvin Saenz Signed Date: 01/31/2025 09:56 ET Workstation ID: [id number] Transcribed By: Self Edit Transcribed Date: 01/31/2025 [...] Signed Date: 01/31/2025 09:56 ET Workstation ID: [id number] Transcribed By: Self Edit Transcribed Date: 01/31/2025 09:55 ET Severo Cha MD IMG XR PROCEDURES Final [...] 12:34 AM EDT 01/31/2025 12:56 AM EDT [facility] - 01/31/2025 1:59 AM EDT Testing was performed using the [employer] Respiratory Pathogen PCR Assay. All results must [...] Result [facility] [address] [place] [address], * (ABNORMAL) CBC auto differential (01/31/2025 12:33 AM EDT) WBC 8.7 4.8 - 10.8 K/mcL LAB HEMETOLOGY METHOD 01/31/2025 1:02 AM EDT [facility] RBC 4.30 3.80 - 4.80 M/mcL LAB HEMETOLOGY METHOD 01/31/2025 1:[facility] Hemoglobin 11.1(L) 11.5 - 16.0 g/dL LAB HEMETOLOGY METHOD 01/31/2025 1:02 AM [facility] Hematocrit 34.7(L) 35.0 - 47.0 % LAB HEMETOLOGY METHOD 01/31/2025 1:02 AM EDT [facility] MCV 80.3 79.0 - 98.0 FL LAB HEMETOLOGY METHOD 01/31/2025 1:02 AM [facility] MCH 25.7(L) 27.0 - 32.0 pcg LAB HEMETOLOGY METHOD 01/31/2025 1:02 AM [facility] MCHC 32.0 32.0 - 37.0 g/dL LAB HEMETOLOGY METHOD 01/31/2025 1:02 AM [facility] RDW 13.3 11.0 - 15.0 % LAB HEMETOLOGY METHOD 01/31/2025 1:02 AM [facility] Platelets 276 130 - 400 K/mcL LAB HEMETOLOGY METHOD 01/31/2025 1:02 AM [facility] MPV 9.4 7.0 - 11.0 FL LAB HEMETOLOGY METHOD 01/31/2025 1:02 AM [facility] NRBC 0.0 <1.0 % LAB HEMETOLOGY METHOD 01/31/2025 1:02 AM [facility] NRBC Absolute 0.00 <0.10 K/mcL LAB HEMETOLOGY METHOD 01/31/2025 1:02 AM [facility] Neutrophils Relative 73.3 % LAB HEMETOLOGY METHOD 01/31/2025 1:02 AM [facility] Lymphocytes Relative 15.4 % LAB HEMETOLOGY METHOD 01/31/2025 1:02 AM [facility] Monocytes Relative 8.3 % LAB HEMETOLOGY METHOD 01/31/2025 1:02 AM [facility] Eosinophils Relative 2.1 % LAB HEMETOLOGY METHOD 01/31/2025 1:02 AM [facility] Basophils Relative 0.6 % LAB HEMETOLOGY METHOD 01/31/2025 1:02 AM [facility] Immature Granulocytes Relative 0.3 % LAB HEMETOLOGY METHOD 01/31/2025 1:02 AM [facility] Neutrophils Absolute 6.38 1.50 - 7.00 K/mcL LAB HEMETOLOGY METHOD 01/31/2025 1:02 AM [facility] Lymphocytes Absolute 1.34 1.00 - 5.00 K/mcL LAB HEMETOLOGY METHOD 01/31/2025 1:02 AM [facility] Monocytes Absolute 0.72 0.20 - 1.00 K/mcL LAB HEMETOLOGY METHOD 01/31/2025 1:02 AM EDT [facility] Eosinophils Absolute 0.18 0.00 - 0.50 K/[facility] HEMETOLOGY METHOD 01/31/2025 1:02 AM EDT [facility] Basophils Absolute 0.05 0.00 - 0.20 K/mcL LAB HEMETOLOGY METHOD 01/31/2025 1:02 AM EDT [facility] Immature Granulocytes Absolute 0.03 0.00 - 0.03 K/[facility] HEMETOLOGY METHOD 01/31/2025 1:02 AM EDT [facility] Blood Venous blood specimen / Unknown Venipuncture / Unknown 01/31/2025 12:33 AM EDT 01/31/2025 12:54 AM EDT Severo Cha MD LAB BLOOD ORDERABLES Final Result [facility] [address] [place] [address], * (ABNORMAL) Basic metabolic panel (01/31/2025 12:33 AM EDT) Sodium 139 133 - 145 mmol/L LAB CHEMISTRY METHOD 01/31/2025 1:27 AM [facility] Potassium 4.5 3.5 - 5.5 mmol/L LAB CHEMISTRY METHOD 01/31/2025 1:27 AM [facility] Chloride 104 96 - 110 mmol/L LAB CHEMISTRY METHOD 01/31/2025 1:27 AM [facility] CO2 27 21 - 32 mmol/L LAB CHEMISTRY METHOD 01/31/2025 1:27 AM [facility] Anion Gap 8 3 - 11 LAB CHEMISTRY METHOD 01/31/2025 1:27 AM [facility] Glucose 104(H) 70 - 100 mg/dL LAB CHEMISTRY METHOD 01/31/2025 1:27 AM EDT [facility] BUN 24 5 - 25 mg/dL LAB CHEMISTRY METHOD 01/31/2025 1:27 AM EDT [facility] Creatinine 1.09 0.50 - 1.10 mg/dL LAB CHEMISTRY METHOD 01/31/2025 1:27 AM EDT [facility] eGFR 50(L) >=60 mL/min/1. 73m2 LAB CHEMISTRY METHOD 01/31/2025 1:27 AM EDT [facility] Comment:Calculation based on the [...] Result [facility] [address] [place] [address], * NM LEXISCAN STRESS TEST W/ MYOCARDIAL PERFUSION (11/20/2024 10:37 AM EDT) Exercise/injec tion duration (min) 0 CV PACS STRESS Exercise/injec tion duration (sec) 47 CV PACS STRESS Peak SBP 160 mmHg CV PACS STRESS Peak DBP 70 mmHg CV PACS STRESS Peak HR 113 bpm CV PACS STRESS Baseline HR 64 bpm CV PACS STRESS Baseline SBP 172 mmHg CV PACS STRESS Baseline DBP 90 mmHg CV PACS STRESS Estimated workload 1.0 METS CV PACS STRESS Percent HR 84 % CV PACS STRESS Rate Pressure Product 18,080.0 mmHg*bpm CV PACS STRESS BSA 1.64 m2 CV PACS STRESS Target HR 115 bpm CV PACS STRESS TID 1.00 CV PACS STRESS Nuc Stress EF 75 % CV PAC S STRESS Nuc Rest EF 77 % CV PACS STRESS Anatomical Region Laterality Modality Nuclear Medicine 11/20/2024 8:47 AM EDT 11/20/2024 9:27 AM EDT Impressions 11/21/2024 10:42 AM EDT 1. Abnormal pharmacological nuclear stress test. 2. Symptoms: No chest pain during the regadenoson infusion. 3. Stress ECG: No ischemic ECG changes with the regadenoson infusion 4. Myocardial perfusion imaging: - Myocardial perfusion imaging revealed a small in size and mild in intensity reversible perfusion defect in the apical inferior wall, suggestive of ischemia. - The myocardial perfusion imaging did not show any fixed perfusion defects to suggest the presence of an infarct. 5. TID was normal at 1.00 6. Gated images revealed normal LV wall motion and thickening; with a normal LV systolic function (LVEF 77%). Narrative 11/21/2024 10:42 AM EDT Stress Findings A pharmacological stress test was performed using regadenoson, 0.4 mg IV over 10-15 seconds, followed by radiopharmacological injection 10 seconds post infusion. Total stress time was 0 min and 47 sec. The patient reached the end of the protocol. Reversal medication aminophylline and 50 given at minute 3 of recovery. Blood pressure demonstrated a normal response. Heart rate demonstrated a normal response. The patient reported dizziness and nausea during the stress test and into recovery. Resolved after aminophylline given. ECG 84 yo female with hypertension, hyperlipidemia, diabetes and chest pain. financial services specialist was used during the test. The ECG shows normal sinus rhythm. Baseline ECG indicates right bundle branch block. There were no ECG changes and no arrhythmias with regadenoson. Nuclear Study Quality Study technique: MPI, SPECT, multi, rest and stress, 1 day. Overall image quality is excellent. CT attenuation correction was utilized. There are no artifacts present. There was no increased lung uptake of the radiopharmaceutical. No radiopharmaceutical dose was extravasated. The time from injection to rest imaging is 30 mins. The time from injection to stress imaging is 60 mins. Perfusion Defect Conclusion There is no evidence of transient ischemic dilation (TID). Stress Function Comments Left ventricular systolic function post-stress is normal. Stress ejection fraction is 75%. Rest Function Comments Left ventricular function at rest was normal. Resting ejection fraction was 77%. Stress Combined Conclusion SCAN FINDINGS: Nuclear imaging of the left ventricle reveals normal cavity size at rest with no change with stress imaging. Myocardial perfusion imaging of the left ventricle reveals a small in size and mild in intensity reversible perfusion defect in the apical inferior wall. No fixed perfusion defects. Gated SPECT imaging was performed which demonstrated normal LV function and thickening with a calculated LVEF of 77% Nuclear Prior Study There is no prior study available for comparison. Perfusion Scoring Resting Summed Score: 0 Percent Normal: 0.00% The left ventricular perfusion is normal. Perfusion Scoring Stress Summed Score: 1 Percent Normal: 1.47% Mild count reduction in the following segments: apical inferior. All other segments are normal. Perfusion Scores: SRS Score: 0 Percentage Abnormal: 0.00% Perfusion Scores: SSS Score: 1 Percentage Abnormal: 1.47% Perfusion Scores: SDS Score: 1 Percentage Abnormal: 1.47% Vineet Mcclellan MD CV STRESS PROCEDURES F inal Result * (ABNORMAL) Hemoglobin A1c (09/04/2024 9:10 AM EST) Hemoglobin A1C 8.5(H) <6.5 % LAB CHEMISTRY METHOD 09/04/2024 5:11 PM EST [facility] Mean Bld Glu Estim. 197 mg/dL LAB CHEMISTRY METHOD 09/04/2024 5:11 PM EST [facility] Blood Venous blood specimen / Unknown Venipuncture / Unknown 09/04/2024 9:10 AM EST 09/04/2024 9:26 AM EST us Laron Maldonado MD LAB BLOOD ORDERABLES Final Res ult [facility] [address] [place] [address], [place] [phone] * DOMINIC SCREENING DIGITAL (07/01/2019 4:51 PM EST) Anatomical Region Laterality Modality Mammography 07/01/2019 12:3 0 PM EST Narrative 07/01/2019 4:51 PM EST [facility] Diagnostic Imaging Department [address] [place] [id number] Patient: MERI MCGREGORKRISTIN /Age/Sex: 1940 - 78 - F Unit#: [id number] Location/Status: SPDIMAM/REG CLI Mnemonic/Ordering Site: [facility] Ordering Physician: GRISELDA VELAZQUEZ MD Dominic Screening Digital - 07/01/191316 INDICATION: SCREENING COMPARISON: No prior studies are available for comparison. TECHNIQUE: CC and MLO views of the breasts were obtained, using full field digital mammography with 3D tomosynthesis views in the MLO projection. Computer aided detection with the TEVIZZ 7.2-H was employed. Patient reports 2 sisters with breast cancer diagnosed in their 50's. FINDINGS: The breasts contain heterogeneously dense tissues, which may lower sensitivity of mammography in this patient. No suspicious masses, suspicious microcalcifications, or areas of architectural distortion are identified. Benign-appearing breast and vascular calcifications are present bilaterally. Metallic biopsy marker is present on the right. There are no secondary signs of breast malignancy. Compared to the prior exam, no adverse interval change. IMPRESSION: No specific mammographic evidence of breast malignancy. Lack of an imaging correlate should not deter or delay biopsy of a clinically significant palpable finding. BI-RADS - Category 2 - Benign finding 3342F, 7025F Annual screening mammography is recommended. Patient entered into a reminder system with a target date for the next mammogram. [id number] / [id number]) , [id number] Dictating Physician: BRODY SMITH MD Electronically Signed by: BRODY SMITH MD Dic Date/Time: 07/01/19 1646 Sign date/Time: 07/01/19 1651 Procedure Note Brody Smith - 07/13/2022 [facility] Diagnostic Imaging Department [address] [place] [id number] Patient: MERI GONZALEZKRISTIN JOYAO.B./Age/Sex: 1940 - 78 - F Unit#: [id number] Location/Status: [facility]/REG CLI Mnemonic/Ordering Site: [facility] Ordering Physician: GRISELDA VELAZQUEZ MD Doimnic Screening Digital - 07/01/19 - 1317 INDICATION: SCREENING COMPARISON: No prior studies are available for comparison. TECHNIQUE: CC and MLO views of the breasts were obtained, using full field digital mammography with 3D tomosynthesis views in the MLO projection. Computer aided detection with the TEVIZZ 7.2-H was employed. Patient reports 2 sisters [...] a target date for the next mammogram. 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
--- OUTSIDE RECORDS SUMMARY | 2025-02-08 08:13 | XMS_ITS | Clinical Summary ---
Author Organization [facility]. Address [address] [address] Phone Care Team Providers Care Community Relations Assistant Name Role Phone Pam Wills MD Primary Care Provider [phone] Allergies No known active allergies Medications amLODIPine [...] Office Visit [facility] P.. [address] [address] Jaylon Barreto MD [address] [address] Health Maintenance Due Date Last [...] Relevant to Health Maintenance Insurance UHC Medicare [facility] UHC Medicare Care Teams Community Relations Assistant Relationship Specialty Start Date End Date Pam Wills MD [address] [place], [place] PCP - General Internal Medicine 05/11/21
--- OUTSIDE RECORDS SUMMARY | 2025-02-08 08:13 | XMS_ITS | Clinical Summary ---
Author Organization [facility] Address [address] [place] [address] Care Team Providers Care Visitor Use Assistant Name Role Phone Pam Wills MD [...] age to complete this topic Care Teams Visitor Use Assistant Relationship Specialty Start Date End Date Pam Wills MD [address] [facility] , [address] [facility] D/B/A: [facility] MERYL Brgaa [address] PCP - General Internal Medicine 02/02/22
[2025-02-08 09:15] LABS: Hemoglobin A1C 175.6841 umol/L; Total Hemoglobin (HGBA1C) 3030.4141 umol/L
[2025-02-08 09:45] LABS: Microalbum/Creatinine Ratio Ur 198.3 ug/mg cr (<30)
[2025-02-08 09:58] LABS: Alanine Aminotransferase 15 U/L (0-31); Albumin Level 4.5 g/dL (3.5-5.0); Alkaline Phosphatase 68 U/L (39-117); Anion Gap 11 (12-20); Aspartate Amino Transferase 16 U/L (5-31); Blood Urea Nitrogen 22 mg/dL (9-16); Calcium 9.3 mg/dL (8.4-10.2); Carbon Dioxide 28 mmol/L (22-29); Chloride 106 mmol/L (96-108); Cholesterol 93 mg/dL (<200); Estimated Glomerular Filt Rate 45; HDL Cholesterol 43 mg/dL (>40); Potassium 4.3 mmol/L (3.3-5.1); Sodium 141 mmol/L (135-145); Total Protein 7.6 g/dL (6.5-8.0); Triglycerides 89 mg/dL (<150)
[2025-02-08 10:23] LABS: Folate 14.4 ng/mL (> or = 4.0); Vitamin B12 477 pg/mL (200-900)
[2025-02-13 21:43] LABS: NTXCreaRU 84 mg/dL (20-275)
== END 2025-02-08 08:12 | disposition home or self-care (01) ==
LOC: HO.LAB 08:11
PROVIDERS: Nurse Practitioner Adult Health; Absent Provider Internal Medicine Endocrinology, Diabetes & Metabolism; PCP Internal Medicine; Visit Provider Internal Medicine
DX: M81.0 Age-related osteoporosis without current pathological fracture (principal); E11.65 Type 2 diabetes mellitus with hyperglycemia; E11.22 Type 2 diabetes mellitus with diabetic chronic kidney disease; N18.31 Chronic kidney disease, stage 3a; E55.9 Vitamin D deficiency, unspecified; E78.5 Hyperlipidemia, unspecified; E53.8 Deficiency of other specified B group vitamins; R80.9 Proteinuria, unspecified
CPT/HCPCS: 36415; 80053; 80061; 82043; 82306; 82523; 82570; 82607; 82746; 83036

== ENCOUNTER 2025-02-12 10:20 | Outpatient (AMB) | payer MEDICARE, OTHER, MEDICAID, SELFPAY ==
--- NOTE | 2025-02-12 10:23 | A.OFFPC_ITS ---
Vital Signs 02/12/25 10:24 Height 5 ft 2 in Weight 130 lb BMI 23.8 BP 160/66 H Blood Pressure Location Lt brachial Position Sitting Pulse 85 Pulse Source Pulse Oximeter Pulse Oximetry (%) 96 Oxygen Delivery Method Room Air Intake Visit Reasons: Hypertension Intake Note: Patient here for Hypertension, seen at [facility] Consultant Required: No Accompanied by: Daughter Allergies amlodipine Adverse Reaction (Intermediate, Verified 02/12/25 10:33) leg edema empagliflozin (From Jardiance) Adverse Reaction (Verified 02/12/25 10:33) vaginal candidiasis Medication List - Last Reconciled 02/12/25 by Pam Montoya MD [adult diapers As directed] albuterol sulfate 90 mcg/actuation 2 puffs inhalation Q4-6H PRN 30 days alendronate 70 mg PO QWEEK apixaban (Eliquis) 5 mg PO BID 90 days blood sugar diagnostic TEST 3 TIMES DAILY blood-glucose meter ([employer] Ultra2 Meter) As directed- TID cane As directed cholecalciferol (vitamin D3) 25 mcg PO DAILY 90 days commode (bedside commode) As directed dulaglutide (Trulicity) 1.5 mg (0.5 mL) subcut QWEEK 28 days fluticasone propion-salmeterol 100-50 mcg/dose (Wixela Inhub) 1 inh inhalation BID gabapentin 300 mg PO BEDTIME isosorbide mononitrate ER 60 mg PO DAILY 90 days levalbuterol tartrate 45 mcg/actuation (Xopenex HFA) 2 puffs inhalation Q4-6H PRN losartan 25 mg PO DAILY 90 days magnesium oxide 400 mg PO DAILY 90 days metformin 1,000 mg PO BID 90 days metoprolol succinate ER 50 mg PO DAILY metoprolol succinate ER 100 mg PO DAILY 90 days omeprazole 20 mg PO DAILY 90 days [One touch Ultra Blue test strips Use 3 times a day] prednisone 60 mg (3 x 20 mg) PO DAILY 3 days rosuvastatin 10 mg PO DAILY 90 days underpads (Certainty Underpads) Use 1 to 2 times a day walker with brakes and seat Tobacco use date assessed: 10/16/24 Dental Screening Dental Screen Date: 10/16/24 HPI HPI Comments History of Present Illness Details This is an 84-year-old female that comes accompanied by her sister which is her caregiver for follow-up on her elevated blood pressure. She has diabetes mellitus type 2, hyperlipidemia, paroxysmal atrial fibrillation on chronic anticoagulation and COPD as well as essential hypertension. Her A1c is 7.1% which is well control and I will not make any changes. She does follows with endocrinology for her diabetes. Her LDL is within goal being less than 70. Atrial fibrillation is follow by cardiology and is on metoprolol and Eliquis for this matter. Denies any active bleeding. COPD is follow by pulmonology. She also has chronic kidney disease stage 3 in which her GFR has decreased from 57-45 in recent blood work. Says that she was mildly dehydrated and I recommend Gatorade. She does follow with Nephrology. Her microalbumin has improved. I will increase losartan from 25 mg to 50 mg. I will see her next week for her physical exam and will recheck blood pressure. [facility] Medical History (Updated 02/12/25 @ 12:33 by Pam Montoya MD) COPD (chronic obstructive pulmonary disease) Left shoulder pain Hyperlipidemia LDL goal <100 Abnormal SPEP Vitamin D deficiency Osteoporosis Age related osteoporosis Physical exam Hypomagnesemia Atrial fibrillation with rapid ventricular response Urinary incontinence Abnormal EKG Screening for osteoporosis Neuropathy Microalbuminuria JONNY (obstructive sleep apnea) Left shoulder pain Anemia GERD (gastroesophageal reflux disease) Coronary artery disease Hypertension Type 2 diabetes mellitus with hyperglycemia Surgical History History of surgery on arm Hx of dilation and curettage Hx of breast biopsy Family History Mother Diabetes mellitus Father No problems noted. Sister Lymphoma Breast cancer Brother Colon cancer Social History Household Members: Family Housing: House Are you a primary director of medicare to a significant other at home: No Do you presently have visiting nurse or other home services: Yes (insurance nurse) Alcohol intake: never Patient Tobacco Use Status: Never used Tobacco e-Cigarette/Vaping Use: Never Used Second Hand Smoke Exposure: No service: No Current occupational status: disabled Cognitive needs: No Hearing needs: No Vision needs: Yes Questionnaire Thrive Questionnaire Date Thrive assessed: 10/16/24 LINDSAY-7 AMB Questionnaire LINDSAY-7 Date LINDSAY - 7 assessed: 10/16/24 Source: Developed by Drs. Jayro Wan, Tara Gutierrez, Bryant Reno and colleagues, with an educational adore from [employer]. Review of Systems Const All systems reviewed & are unremarkable except as noted in HPI and below Card Denies chest pain at rest, Denies chest pain with activity, Denies edema, Denies irregular heart rhythm, Denies claudication, Denies dyspnea, Denies dyspnea on exertion, Denies orthopnea, Denies paroxysmal nocturnal dyspnea and Denies slow heart rate Resp Denies cough, Denies dyspnea and Denies dyspnea on exertion GI Denies abdominal pain, Denies change in bowel habits, Denies excessive flatus, Denies nausea and Denies vomiting Denies urinary incontinence, Denies urinary hesitancy and Denies urinary urgency Neuro Denies lack of coordination Physical exam (Primary Care) Vital Signs: Last Vital Signs Pulse 85 02/12/25 10:24 BP 160/66 H 02/12/25 10:24 Pulse Ox 96 02/12/25 10:24 Oxygen Delivery Method Room Air 02/12/25 10:24 BMI result Body Mass Index 23.8 Tobacco/Smoking Status: Tobacco use Status Tobacco use date assessed 10/16/24 02/12/25 10:32 Patient Tobacco Use Status Never used Tobacco 02/12/25 10:32 e-Cigarette/Vaping Use Never Used 02/12/25 10:32 Thrive Assessment: Date of Thrive Assessment Date Thrive assessed 10/16/24 02/12/25 10:32 Resp Effort & Inspection: normal respiratory effort Auscultation: clear to auscultation bilaterally Cardio Jugular venous distension: no JVD Rate: regular rate Rhythm: regular rhythm Heart sounds: S1 normal heart sound present and S2 normal heart sound present Extrem General: Yes full ROM Coding Level of Care Code Est Pt Level 4 (66312) Complex EM visit Add On G2211 Diagnoses PAF (paroxysmal atrial fibrillation) I48.0 Type 2 diabetes mellitus with hyperglycemia, without long-term current use of insulin E11.65 Diabetes mellitus intermediate project manager insulin use: without intermediate project manager use Hyperlipidemia LDL goal <70 E78.5 Stage 3a chronic kidney disease N18.31 Chronic kidney disease stage 3 subtype: stage 3a (GFR 45-59) Essential hypertension I10 COPD (chronic obstructive pulmonary disease) J44.9 Time Spent (min) 23 Assessment & Plan Assessment & Plan (1) PAF (paroxysmal atrial fibrillation): Code(s): I48.0 - Paroxysmal atrial fibrillation Category: Medical (2) Type 2 diabetes mellitus with hyperglycemia: Code(s): E11.65 - Type 2 diabetes mellitus with hyperglycemia Category: Medical Qualifiers: Diabetes mellitus care home insulin use: without intermediate project manager use Qualified Code(s): E11.65 - Type 2 diabetes mellitus with hyperglycemia (3) Hyperlipidemia LDL goal <70: Code(s): E78.5 - Hyperlipidemia, unspecified Category: Medical (4) CKD (chronic kidney disease) stage 3, GFR 30-59 ml/min: Code(s): N18.30 - Chronic kidney disease, stage 3 unspecified Category: Medical Qualifiers: Chronic kidney disease stage 3 subtype: stage 3a (GFR 45-59) Qualified Code(s): N18.31 - Chronic kidney disease, stage 3a (5) Essential hypertension: Code(s): I10 - Essential (primary) hypertension Category: Medical (6) COPD (chronic obstructive pulmonary disease): Comment: Follow by pulmonology Dr. Gee Code(s): J44.9 - Chronic obstructive pulmonary disease, unspecified Category: Medical Plan Increase losartan from 25 mg to 50 mg. Continue all current medications. Follow-up with endocrinology, Cardiology and Nephrology. Follow-up with pulmonology as well. Medications: New losartan 50 mg PO DAILY 90 tabs 1RF 90 days Changed From gabapentin 300 mg PO BEDTIME To gabapentin 300 mg (3 x 100 mg) PO BEDTIME 90 caps 2RF 30 days Refilled cholecalciferol (vitamin D3) 25 mcg PO DAILY 90 caps 1RF 90 days omeprazole 20 mg PO DAILY 90 caps 3RF 90 days K21.9 - Gastro-esophageal reflux disease without esophagitis albuterol sulfate 90 mcg/actuation 2 puffs inhalation Q4-6H PRN 8.5 grams 2RF shortness of breath or wheezing 30 days apixaban (Eliquis) 5 mg PO BID 180 tabs 1RF 90 days I48.91 - Unspecified atrial fibrillation metformin 1,000 mg PO BID 180 tabs 3RF 90 days E11.65 - Type 2 diabetes ethan litus with hyperglycemia rosuvastatin 10 mg PO DAILY 90 tabs 0RF 90 days Discontinued losartan Discontinued Reason: Patient Completed Course 25 mg PO DAILY 90 days 90 tabs 0RF
[2025-02-12 10:24] VITALS: BP 160/66; PULSE 85; O2SAT 96; BMI 23.8
--- OUTSIDE RECORDS SUMMARY | 2025-02-12 11:24 | XMS_ITS | Clinical Summary ---
Author Organization [facility]. Address [address] [address] Phone Care Team Providers Care Permit Coordinator Name Role Phone Pam Wills MD Primary Care Provider [phone] Allergies No known active allergies Medications amLODIPine [...] Encounters Date Type Department Care Team Description 02/12/2025 Office Communication [facility] [address] [address] Monica Sagastume from Last 3 Months Family History Relation [...] [facility] [address] [address] Jaylon Barreto MD [address] [address] Health Maintenance Due Date Last [...] Most Recently Relevant to Health Maintenance [place] [address] [facility] Medicare [facility] Medicare Care Teams Permit Coordinator Relationship Specialty Start Date End Date Pam Wills MD [address] [place], [place] PCP - General Internal Medicine 05/11/21
--- OUTSIDE RECORDS SUMMARY | 2025-02-12 11:24 | XMS_ITS | Clinical Summary ---
Author Organization [facility] Address [address] [place] [address] Care Team Providers Care Manager Urgent Care Name Role Phone Pam Wills MD Primary [...] to complete this topic Care Teams Manager Urgent Care Relationship Specialty Start Date End Date Pma Wills MD [address] [facility] , [address] [facility] D/B/A: [facility] [place] [id number] PCP - General Internal Medicine 02/02/22
== END 2025-02-12 10:55 | disposition home or self-care (01) ==
PROVIDERS: PCP Internal Medicine; Visit Provider Internal Medicine
DX: I12.9 Hypertensive chronic kidney disease with stage 1 through stage 4 chronic kidney disease, or unspecified chronic kidney disease (principal); I48.0 Paroxysmal atrial fibrillation; E11.65 Type 2 diabetes mellitus with hyperglycemia; N18.31 Chronic kidney disease, stage 3a; J44.9 Chronic obstructive pulmonary disease, unspecified; E78.5 Hyperlipidemia, unspecified

== ENCOUNTER → 2025-02-12 10:20 | Outpatient (BNVA) | payer MEDICARE, OTHER, MEDICAID, SELFPAY | PROVIDERS: PCP Internal Medicine; Visit Provider Internal Medicine | DX: I48.0 Paroxysmal atrial fibrillation (principal); J44.9 Chronic obstructive pulmonary disease, unspecified; E11.65 Type 2 diabetes mellitus with hyperglycemia; E78.5 Hyperlipidemia, unspecified; I12.9 Hypertensive chronic kidney disease with stage 1 through stage 4 chronic kidney disease, or unspecified chronic kidney disease; E11.22 Type 2 diabetes mellitus with diabetic chronic kidney disease; N18.31 Chronic kidney disease, stage 3a | CPT/HCPCS: 99212 ==

== ENCOUNTER 2025-02-17 16:44 | Outpatient (AMB) | payer MEDICARE, OTHER, MEDICAID, SELFPAY ==
[2025-02-17 16:46] VITALS: BP 118/50; BMI 23.8
--- NOTE | 2025-02-17 16:46 | A.OFFPC_ITS ---
Vital Signs 02/17/25 16:46 Height 5 ft 2 in Weight 130 lb BMI 23.8 BP 118/50 L Blood Pressure Location Lt brachial Position Sitting Intake Visit Reasons: PHYSICAL - see comments Intake Note: Patient here for a physical exam Note Teller Required: No Accompanied by: Daughter Allergies amlodipine Adverse Reaction (Intermediate, Verified 02/17/25 16:53) leg edema empagliflozin (From Jardiance) Adverse Reaction (Verified 02/17/25 16:53) vaginal candidiasis Medication List - Last Reconciled 02/17/25 by Pam Montoya MD [adult diapers As directed] albuterol sulfate 90 mcg/actuation 2 puffs inhalation Q4-6H PRN 30 days alendronate 70 mg PO QWEEK apixaban (Eliquis) 5 mg PO BID 90 days blood sugar diagnostic TEST 3 TIMES DAILY blood-glucose meter ([employer] Ultra2 Meter) As directed- TID cane As directed cholecalciferol (vitamin D3) 25 mcg PO DAILY 90 days commode (bedside commode) As directed dulaglutide (Trulicity) 1.5 mg (0.5 mL) subcut QWEEK 28 days fluticasone propion-salmeterol 100-50 mcg/dose (Wixela Inhub) 1 inh inhalation BID gabapentin 300 mg (3 x 100 mg) PO BEDTIME 30 days isosorbide mononitrate ER 60 mg PO DAILY 90 days levalbuterol tartrate 45 mcg/actuation (Xopenex HFA) 2 puffs inhalation Q4-6H PRN losartan 50 mg PO DAILY 90 days magnesium oxide 400 mg PO DAILY 90 days metformin 1,000 mg PO BID 90 days metoprolol succinate ER 50 mg PO DAILY metoprolol succinate ER 100 mg PO DAILY 90 days omeprazole 20 mg PO DAILY 90 days [One touch Ultra Blue test strips Use 3 times a day] prednisone 60 mg (3 x 20 mg) PO DAILY 3 days rosuvastatin 10 mg PO DAILY 90 days underpads (Certainty Underpads) Use 1 to 2 times a day walker with brakes and seat Tobacco use date assessed: 10/16/24 Dental Screening Dental Screen Date: 10/16/24 HPI HPI Comments History of Present Illness Details The patient is an 84-year-old female presenting for a physical exam. She has a history of diabetes mellitus type 2, with her last hemoglobin A1c recorded at 7.5% on February 08. She underwent a diabetic eye exam less than a year ago. The patient also has Chronic Obstructive Pulmonary Disease (COPD) and is under the care of a order entry specialist. She reports being up to date with her vaccinations, although there is no documented evidence available. She has paroxysmal atrial fibrillation and is on chronic anticoagulation therapy, with follow-up care provided by a sales order administrator. The patient has chronic kidney disease stage 3, with the last recorded glomerular filtration rate (GFR) of 45, and she is followed by a well drill operator cable tool. She denies experiencing any chest pain or dyspnea. She is accompanied by her sister and reports doing well with no acute complaints. [facility] Medical History COPD (chronic obstructive pulmonary disease) Left shoulder pain Hyperlipidemia LDL goal <100 Abnormal SPEP Vitamin D deficiency Osteoporosis Age related osteoporosis Physical exam Hypomagnesemia Atrial fibrillation with rapid ventricular response Urinary incontinence Abnormal EKG Screening for osteoporosis Neuropathy Microalbuminuria JONNY (obstructive sleep apnea) Left shoulder pain Anemia GERD (gastroesophageal reflux disease) Coronary artery disease Hypertension Type 2 diabetes mellitus with hyperglycemia Surgical History History of surgery on arm Hx of dilation and curettage Hx of breast biopsy Family History (Updated 02/17/25 @ 17:02 by Pam Montoya MD) Mother Diabetes mellitus Father CAD (coronary artery disease) Sister Lymphoma Breast cancer Brother Colon cancer Social History Household Members: Family Housing: House Are you a primary acute care clinical nurse specialist to a significant other at home: No Do you presently have visiting nurse or other home services: Yes (insurance nurse) Alcohol intake: never Patient Tobacco Use Status: Never used Tobacco e-Cigarette/Vaping Use: Never Used Second Hand Smoke Exposure: No service: No Current occupational status: disabled Cognitive needs: No Hearing needs: No Vision needs: Yes Questionnaire PHQ-9 Over the last 2 weeks, how often have you been bothered by any of the following problems? 1. Little interest or pleasure in doing things: not at all 2. Feeling down, depressed, or hopeless: more than half the days 3. Trouble falling or staying asleep, or sleeping too much: several days 4. Feeling tired or having little energy: several days 5. Poor appetite or overeating: several days 6. Feeling bad about yourself - or that you are a failure or have let yourself or your family down: not at all 7. Trouble concentrating on things, such as reading the newspaper or watching television: not at all 8. Moving or speaking so slowly that other people could have noticed. Or the opposite - being so fidgety or restless that you have been moving around a lot more than usual: not at all 9. Thoughts that you would be better off or of hurting yourself in some way: not at all Total score: 5 Depression Screening Interpretation: Positive Depression Screening Follow-up: Existing condition and Follow-up Visit Requested Depression Screening Done: Yes 45547 - PHQ-9 Billing: Yes Source: Developed by Drs. Jayro Wan, Tara Gutierrez, Bryant Reno and colleagues, with an educational adore from [employer]. Thrive Questionnaire Date Thrive assessed: 10/16/24 I am a: Patient What is your living situation today?: I have a steady place to live Within the past 12 months, did the food you bought not last and you didn't have the money to get more?: I choose not to answer this question Within the past 12 months, did you worry whether your food would run out before you got money to buy more?: Never true Do you have trouble paying for medicines?: No Do you have trouble getting transportation to medical appointments?: No Do you have trouble paying your heating and electricity bill?: No Do you have trouble taking care of your child, family member or friend?: No Do you have trouble with day-to-day activities such as bathing, preparing meals, shopping, managing finances, etc.?: Yes Are you currently unemployed and looking for a job?: Yes Are you interested in more education?: No Please select the resources that you would like help with: None Currently or been in a relationship where the following occur: No concerns reported THRIVE Score: 0 AUDIT C Alcohol Use Questionnaire (AUDIT-C) 1. How often do you have a drink containing alcohol?: Never Total Score: 0 Score Reviewed/Action Taken: No LINDSAY-7 AMB Questionnaire LINDSAY-7 Date LINDSAY - 7 assessed: 10/16/24 Feeling nervous, anxious, or on edge: 0 = Not at all Not being able to stop or control worryin = Several days Worrying too much about different things: 1 = Several days Trouble relaxin = Not at all Being so restless that it is hard to sit still: 0 = Not at all Becoming easily annoyed or irritable: 0 = Not at all Feeling afraid as if something awful might happen: 0 = Not at all Total LINDSAY-7 score (0-4 normal; 5-9 mild; 10-14 moderate; 15-21 severe): 2 Source: Developed by Drs. Jayro Wan, Tara Gutierrez, Bryant Reno and colleagues, with an educational adore from [employer]. LINDSAY-7 Assessment Billing LINDSAY-7 Assessment Tool: LINDSAY-7 Assessment 96318 Review of Systems Const All systems reviewed & are unremarkable except as noted in HPI and below Card Denies chest pain at rest, Denies chest pain with activity, Denies edema, Denies irregular heart rhythm, Denies claudication, Denies dyspnea, Denies dyspnea on exertion, Denies orthopnea, Denies paroxysmal nocturnal dyspnea and Denies slow heart rate Resp Denies cough, Denies dyspnea and Denies dyspnea on exertion GI Denies abdominal pain, Denies change in bowel habits, Denies excessive flatus, Denies nausea and Denies vomiting Denies urinary incontinence, Denies urinary hesitancy and Denies urinary urgency Musc Denies abnormal gait, Denies atrophy, Denies deformity and Denies limited range of motion Skin/Breast Denies bleeding lesions, Denies changing lesions and Denies rash Neuro Denies abnormal gait, Denies behavioral changes and Denies lack of coordination Psych Denies behavioral changes Physical exam (Primary Care) Vital Signs: Last Vital Signs BP 118/50 L 02/17/25 16:46 BMI result Body Mass Index 23.8 Tobacco/Smoking Status: Tobacco use Status Tobacco use date assessed 10/16/24 02/17/25 16:50 Patient Tobacco Use Status Never used Tobacco 02/17/25 16:50 e-Cigarette/Vaping Use Never Used 02/17/25 16:50 PHQ-9: PHQ-9 Score PHQ-9: Total score 5 02/17/25 16:55 Depression Screening Interpretation: Positive Depression Screening Follow-up: Existing condition and Follow-up Visit Requested Thrive Assessment: Date of Thrive Assessment Date Thrive assessed 10/16/24 02/17/25 16:50 Currently or been in a relationship where the following occur: No concerns reported [facility] Head: Yes normal to inspection, Yes normocephalic and Yes atraumatic Ears: external ears normal Eyes General: appearance normal, both eyes and all related structures Eyelids: Yes eyelids normal Conjunctivae: conjunctivae normal Neck Neck: Yes normal visual inspection and Yes supple Resp Effort & Inspection: normal respiratory effort Auscultation: clear to auscultation bilaterally Cardio Jugular venous distension: no JVD Rate: regular rate Rhythm: regular rhythm Heart sounds: S1 normal heart sound present and S2 normal heart sound present GI Inspection: Yes normal to inspection Palpation (GI): Soft to palpation and nontender Auscultation: normal bowel sounds Skin General skin exam: no rashes or lesions noted Neuro General: no focal motor deficits Extrem General: Yes full ROM Psych Appearance: grossly normal Coding Level of Care Code Est Pt Prev Care >65y(88746) Diagnoses Physical exam Z00.00 COPD (chronic obstructive pulmonary disease) J44.9 Stage 3a chronic kidney disease N18.31 Chronic kidney disease stage 3 subtype: stage 3a (GFR 45-59) Type 2 diabetes mellitus with hyperglycemia, without long-term current use of insulin E11.65 Diabetes mellitus exceptional student education teacher insulin use: without exceptional student education teacher use PAF (paroxysmal atrial fibrillation) I48.0 Additional Codes LINDSAY-7 Assessment Billing - LINDSAY-7 Assessment Tool: LINDSAY-7 Assessment 46241 ([id number]) PHQ-9 - 26703 - PHQ-9 Billing: Yes ([id number]) Time Spent (min) 30 Assessment & Plan Assessment & Plan (1) Physical exam: Code(s): Z00.00 - Encounter for general adult medical examination without abnormal findings Category: Medical (2) COPD (chronic obstructive pulmonary disease): Comment: Follow by pulmonology Dr. Gee Code(s): J44.9 - Chronic obstructive pulmonary disease, unspecified Category: Medical (3) CKD (chronic kidney disease) stage 3, GFR 30-59 ml/min: Code(s): N18.30 - Chronic kidney disease, stage 3 unspecified Category: Medical Qualifiers: Chronic kidney disease stage 3 subtype: stage 3a (GFR 45-59) Qualified Code(s): N18.31 - Chronic kidney disease, stage 3a (4) Type 2 diabetes mellitus with hyperglycemia: Code(s): E11.65 - Type 2 diabetes mellitus with hyperglycemia Category: Medical Qualifiers: Diabetes mellitus exceptional student education teacher insulin use: without alf use Qualified Code(s): E11.65 - Type 2 diabetes mellitus with hyperglycemia (5) PAF (paroxysmal atrial fibrillation): Code(s): I48.0 - Paroxysmal atrial fibrillation Category: Medical Plan Repeat physical exam in a year. Follow-up with Nephrology for chronic kidney disease. Follow-up with pulmonology for COPD. Follow-up with endocrinology for diabetes and osteoporosis. Continue current medications. Orders: Orders Vitamin D 25-OH Total 4 Months E55.9 - Vitamin D deficiency, unspecified Lipid Panel 4 Months E78.5 - Hyperlipidemia, unspecified Microalbumin, Random (w Creat) 4 Months R80.9 - Proteinuria, unspecified Comprehensive [place]. Panel Fast 4 Months I10 - Essential (primary) hypertension
--- OUTSIDE RECORDS SUMMARY | 2025-02-17 16:47 | XMS_ITS | Clinical Summary ---
Author Organization [facility]. Address [address] [address] Phone Care Team Providers Care Lehr Attendant Name Role Phone Pam Wills MD Primary Care Provider [phone] Allergies No known active allergies Medications amLODIPine [...] Office Communication [facility] [address] [address] Monica Sagastume from Last 3 [...] Care Team (Late st Contact Info) Description 02/20/2025 1:30 PM EDT Office Visit [facility] [address] [address] Jaylon Barreto MD [address] [address] 10/21/2025 3:00 PM EDT Office Visit [facility] [address] [address] Jaylon Barreto MD [address] [address] Health Maintenance Due Date Last [...] 6.0 Cholesterol 164 0 - 200 11/13/2015 us Historical Provider LAB BLOOD ORDERABLES Lesa l Result from Last 3 Months or Most Recently Relevant to Health Maintenance Insurance [facility] Medicare [facility] [place] [address] Care Teams Lehr Attendant Relationship Specialty Start Date End Date Pam Wills MD [address] [place], [place] PCP - General Internal Medicine 05/11/21
--- OUTSIDE RECORDS SUMMARY | 2025-02-17 16:48 | XMS_ITS | Clinical Summary ---
Author Organization [facility] Address [address] [place] [address] Care Team Providers Care Carton Filler Name Role Phone Pam Wills MD Primary [...] age to complete this topic Care Teams Carton Filler Relationship Specialty Start Date End Date Pam Wlils MD [address] [facility] , [address] [facility] D[facility]A: [facility] MERYL Braga [id number] PCP - General Internal Medicine 02/02/22
--- OUTSIDE RECORDS SUMMARY | 2025-02-17 16:48 | XMS_ITS | Data Portability ---
Author Organization [place] - [facility], [facility] Address [address] [place] [phone] Care Team Providers Care Mixing Machine Tender Name Role Phone JAYLONPHU Primary Care Provider Assessment Encounter Date Assessment Date Assessment LastModified by Organization Details LastModified Time 02/13/2025 02/13/2025 Patient's audiogram shows bilateral moderate sensorineural hearing loss affecting the mid- and high-frequencies with well maintained speech discrimination. There is enough hearing loss to affect day-to-day hearing performance. We discussed in detail the pros and cons of amplification (hearing aids). We discussed the connection between untreated hearing loss and increased risk of dementia, falling and accidents. After full discussion, the patient expressed interest in learning more about amplification options. Accordingly we will set them up for a hearing aid evaluation. Patient is medically cleared for amplification bilaterally. [email or web address] Not available 02/13/2025 14:16:44 Plan of Treatment Reminders Order Date Submit Date Provider Last Modified By Organization Details Last Modified Time Details Appointments ARNOLD Initial Fitting 2024 03:00P M ARCADIO ABARCA Not available Not available Not available Establish ed 15 2024 03:00P M PAM Hare MD Not available Not available Not available Lab None recorded. Referral None recorded. Procedures None recorded. Surgeries None recorded. Imaging None recorded. Medication Orders None recorded. Patient TargetsNo targets recorded. Patient InstructionsNo instructions recorded. Reason for Referral None Reported. Results Created Date Observation Date Name Description Value Unit Range Abnormal Flag Note LastModifiedBy Organization Detail LastModifiedTime 02/14/20 25 audio gram No observ ation record ed. BARCODE Not Available 2024 14:29:57 Result Notes None recorded. Problems Name Problem SNOMED Code Status Onset Date Resolution Date Notes Provider Name and Address Organization Details Recorded Time Sensorineur al hearing loss of bilateral ears 340436865 Active 2024 MIKE ODEN MA, CCC-A [address] [facility], [place], [phone], [facility] - [facility] 13:48:26 Bilateral tinnitus [id number] Active 2024 MIKE ODEN MA, CCC-A [address] [facility], [place], [phone], [facility] - [facility] 13:48:34 Pain in throat 967816049 Active 2024 LUIZ PAEZ MD [address] [facility],[place] [place] [address], [place], [phone], [facility] - [facility] 14:18:55 Problem Notes None recorded. Procedures Surgical History Date Name Laterality Status Provider Name and Address Organization Details Recorded Time 02/13/2025 Comp Audio with Tymps - 99054 & 28288 completed MIKE ODEN MA, [facility] [address] [facility],[place] [address], [place], [phone], [facility] 02/13/2025 13:48:44 Imaging Results None recorded. Procedure Notes None recorded. Medical Equipment None Reported. Medications Name Sig Start Date Stop Date Status Note LastModified by Organization Details LastModified Time prednisone 10 mg tablet 02/13 completed Not Available Not Available Not Available doxycycline hyclate 100 mg capsule TAKE ONE CAPSULE BY MOUTH TWICE DAILY FOR 7 DAYS. TAKE WITH AT LEAST 8OZ OF WATER. DO NOT LIE DOWN FOR 30 MINUTES AFTER 02/10 completed Not Available Not Available Not Available tizanidine 2 mg tablet TAKE 1 TABLET BY MOUTH EVERY 8 HOURS NEEDED FOR MUSCLE SPASMS active Not Available Not Available No t Available albuterol sulfate 2.5 mg/3 mL (0.083 %) solution for nebulizatio n 02/13 completed Not Available Not Available Not Available cefpodoxime 200 mg tablet TAKE 1 TABLET BY MOUTH TWICE DAILY 02/10 completed Not Available Not Available Not Available azithromyci n 250 mg tablet TAKE 2 TABLETS BY MOUTH 1 TIME FOR 1 DAY THEN TAKE 1 TABLET BY MOUTH DAILY FOR 4 DAYS 02/10 completed Not Available Not Available Not Available fluconazole 150 mg tablet TAKE 1 TABLET BY MOUTH EVERY 3 DAYS FOR 2 DOSES. MAY REPEAT SECOND DOSE 72 HOURS AFTER FOR 1 DOSE IF SYMPTOMS PERSIST active Not Available Not Available No t Available benzonatate 200 mg capsule TAKE 1 CAPSULE BY MOUTH 2 TO 3 TIMES A DAY NEEDED FOR COUGH active Not Available Not Available No t Available metoprolol succinate ER 50 mg tablet,exte nded release 24 hr active Not Available Not Available Not Available prednisone 20 mg tablet TAKE 2 TABLETS BY MOUTH DAILY active Not Available Not Available No t Available isosorbide mononitrate ER 30 mg tablet,exte nded release 24 hr TAKE 1 TABLET BY MOUTH DAILY active Not Available Not Available No t Available alendronate 70 mg tablet TAKE 1 TABLET BY MOUTH EVERY WEEK active Not Available Not Available No t Available metoprolol succinate ER 100 mg tablet,exte nded release 24 hr TAKE 1 TABLET BY MOUTH DAILY active Not Available Not Available No t Available amlodipine 5 mg tablet TAKE 1 TABLET BY MOUTH DAILY active Not Available Not Available No t Available amoxicillin 500 mg tablet TAKE 1 TABLET BY MOUTH EVERY 12 HOURS FOR 10 DAYS 02/10 completed Not Available Not Available Not Available isosorbide mononitrate ER 60 mg tablet,exte nded release 24 hr TAKE 1 TABLET BY MOUTH DAILY active Not Available Not Available No t Available alprazolam 0.5 mg tablet TAKE 1 TABLET BY MOUTH DAILY FOR 6 DAYS NEEDED FOR ANXIETY 02/13 completed Not Available Not Available Not Available calcium 600 mg (as calcium carbonate 1,500 mg) tablet TAKE 1 TABLET BY MOUTH DAILY active Not Available Not Available No t Available prednisolon e acetate 1 % eye drops,suspe nsion SHAKE LIQUID AND INSTILL 1 DROP IN BOTH EYES THREE TIMES DAILY 02/13 completed Not Available Not Available Not Available magnesium oxide 400 mg (241.3 mg magnesium) tablet TAKE 1 TABLET BY MOUTH DAILY active Not Available Not Available No t Available OneTouch Ultra Test strips USE 3 TIMES DAILY active Not Available Not Available No t Available benzonatate 100 mg capsule active Not Available Not Available Not Available metformin 1,000 mg tablet TAKE 1 TABLET BY MOUTH TWICE DAILY active Not Available Not Available No t Available nitrofurant oin macrocrysta l 100 mg capsule TAKE 1 CAPSULE BY MOUTH TWICE DAILY FOR 5 DAYS 02/10 completed Not Available Not Available Not Available losartan 25 mg tablet TAKE 1 TABLET BY MOUTH DAILY active Not Available Not Available No t Available budesonide 0.25 mg/2 mL suspension for nebulizatio n INHALE 2 ML VIA NEBULIZER DAILY active Not Available Not Available No t Available omeprazole 20 mg capsule,del ayed release TAKE 1 CAPSULE BY MOUTH DAILY active Not Available Not Available No t Available gabapentin 100 mg capsule TAKE 2 CAPLETS BY MOUTH AT BEDTIME active Not Available Not Available No t Available cefuroxime axetil 500 mg tablet TAKE 1 TABLET BY MOUTH TWICE DAILY 02/13 completed Not Available Not Available Not Available albuterol sulfate HFA 90 mcg/actuati on aerosol inhaler INHALE 1 TO 2 PUFFS BY MOUTH EVERY 4 HOURS NEEDED FOR WHEEZING active Not Available Not Available No t Available pioglitazon e 30 mg tablet TAKE 1 TABLET BY MOUTH DAILY 02/13 completed Not Available Not Available Not Available doxycycline hyclate 100 mg tablet TAKE 1 TABLET BY MOUTH TWICE DAILY FOR 5 DAYS 02/10 completed Not Available Not Available Not Available glipizide 5 mg tablet TAKE 2 TABLETS BY MOUTH DAILY 02/13 completed Not Available Not Available Not Available ipratropium bromide 0.02 % solution for inhalation active Not Available Not Available N ot Available amoxicillin 875 mg-potassiu m clavulanate 125 mg tablet TAKE 1 TABLET BY MOUTH EVERY 12 HOURS 02/10 completed Not Available Not Available Not Available cholecalcif milo (vitamin D3) 25 mcg (1,000 unit) capsule TAKE 1 CAPSULE BY MOUTH ONCE A DAY active Not Available Not Available No t Available azithromyci n 500 mg tablet 02/13 completed Not Available Not Available Not Available guaifenesin 400 mg tablet TAKE 1 TABLET BY MOUTH THREE TIMES DAILY active Not Available Not Available No t Available rosuvastati n 5 mg tablet TAKE 1 TABLET BY MOUTH DAILY 02/13 completed Not Available Not Available Not Available rosuvastati n 10 mg tablet TAKE 1 TABLET BY MOUTH DAILY active Not Available Not Available No t Available Prolia 60 mg/mL subcutaneou s syringe active Not Available Not Available No t Available Eliquis 5 mg tablet TAKE 1 TABLET BY MOUTH TWICE DAILY active Not Available Not Available No t Available Jardiance 10 mg tablet TAKE 1 TABLET BY MOUTH DAILY 02/13 completed Not Available Not Available Not Available Trulicity 1.5 mg/0.5 mL subcutaneou s pen injector ADMINISTE R 1.5 MG UNDER THE SKIN EVERY WEEK active Not Available Not Available No t Available Trulicity 0.75 mg/0.5 mL subcutaneou s pen injector ADMINISTE R 0.75 MG UNDER THE SKIN EVERY WEEK active Not Available Not Available No t Available Wixela Inhub 250 mcg-50 mcg/dose powder for inhalation INHALE 1 PUFF BY MOUTH TWICE DAILY active Not Available Not Available No t Available Wixela Inhub 100 mcg-50 mcg/dose powder for inhalation INHALE 1 PUFF INTO THE LUNGS TWICE DAILY 02/13 completed Not Available Not Available Not Available OneTouch Ultra2 Meter USE DIRECTED THREE TIMES DAILY active Not Available Not Available No t Available Trulicity 3 mg/0.5 mL subcutaneou s pen injector ADMINISTE R 3 MG UNDER THE SKIN EVERY WEEK active Not Available Not Available No t Available Vitals Date Recorded Body height Body mass index (BMI) Body weight Provider Name and Address Organization Details Last Updated DateTime 02/13/2025 160.02 cm 23.4 kg/m2 97012.19 g AMILCAR GOOD [place] - [facility] 02/13/2025 14:08:05 Social History None recorded. Functional Status None recorded. Mental Status None recorded. Family History Nothing Reported. Medical History No medical history recorded. Gynecological HistoryNo gynecological history recorded. Obstetrics History GPAL:G 0 P 0 0 0 0 Past Encounters Encounter ID Performer Location Encounter Start Date Encounter Closed Date Diagnosis/Indication Diagnosis SNOMED-CT Code Diagnosis ICD10 Code Diagnosis Note [id number] LUIZ PAEZ MD [facility] [address] [phone] 02/13/2025 13:06:35 02/13/2025 14:23:48 Sensorineural hearing loss of bilateral ears 007529043 H90.3 Audiologic al evaluation results:Ri ght ear:Normal hearing sloping to a mild to moderate SNHL with good word recognitio n.Left ear:Normal hearing sloping to a mild to moderately severe SNHL with good word recognitio n. Tympanomet ry:Right Ear:Type ALeft Ear:Type A Bilateral tinnitus 34369 59653 102 H93.13 Pain in throat 094533563 R07.0 Patient noting 8 months of throat pain. I will set up an appointmen t with one of my partners for further evaluation and possible fiberoptic examinatio n of the hypopharyn x and larynx. Health Concerns Section Related Observation LastModified by Organization Detai ls LastModified Time None Recorded Concern Status LastModified by Organization Details LastModified Time None Recorded Advance Directives Directive None Recorded Payers Insurance Date Sequence Insurance Name Policy Number Policy Franco Covered Member ID Franco Member ID Guarantor Name 02/12/2025 1 [facility] (MEDICARE REPLACEMENT/A DVANTAGE - PPO) [id number] Kristin Stanton Villagomez [id number] Kristin Stanton Villagomez 05/07/2024 1 [place] Kristin Stanton Villagomez [phone] Kristin Stanton Villagomez 05/07/2024 1 [place] Kristin Stanton Villagomez [id number] Kristin Stanton Villagomez OBGyn Episode No OBEpisode recorded.
== END 2025-02-17 17:11 | disposition home or self-care (01) ==
LOC: HO.HMCH 16:45
PROVIDERS: PCP Internal Medicine; Visit Provider Internal Medicine
DX: Z00.00 Encounter for general adult medical examination without abnormal findings (principal); J44.9 Chronic obstructive pulmonary disease, unspecified; N18.31 Chronic kidney disease, stage 3a; E11.65 Type 2 diabetes mellitus with hyperglycemia; I48.0 Paroxysmal atrial fibrillation

== ENCOUNTER → 2025-02-17 16:44 | Outpatient (BNVA) | payer MEDICARE, OTHER, MEDICAID, SELFPAY | PROVIDERS: PCP Internal Medicine; Visit Provider Internal Medicine | DX: Z00.00 Encounter for general adult medical examination without abnormal findings (principal); J44.9 Chronic obstructive pulmonary disease, unspecified; I12.9 Hypertensive chronic kidney disease with stage 1 through stage 4 chronic kidney disease, or unspecified chronic kidney disease; E11.22 Type 2 diabetes mellitus with diabetic chronic kidney disease; N18.31 Chronic kidney disease, stage 3a; E11.65 Type 2 diabetes mellitus with hyperglycemia; I48.0 Paroxysmal atrial fibrillation | CPT/HCPCS: 96127; 99397 ==

== ENCOUNTER 2025-03-03 14:36 | Outpatient (AMB) | payer MEDICARE, OTHER, MEDICAID, SELFPAY ==
--- NOTE | 2025-03-03 14:42 | MHC.OFFVIS ---
Vital Signs 03/03/25 14:44 Height 5 ft 3.11 in Weight 130 lb 8.218 oz BMI 23.0 BP 132/54 L Blood Pressure Location Rt brachial Position Sitting Pulse 80 Pulse Source Pulse Oximeter Pulse Oximetry (%) 95 Oxygen Delivery Method Room Air Intake Visit Reasons: f/u osteoporosis Intake Note: Patient present today for Osteoporosis follow up. 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 Services: Pre Parole Counseling Aide Present Pre Parole Counseling Aide Name: [facility] Information Interpreted: non-clinical & clinical Accompanied by: Daughter Allergies amlodipine Adverse Reaction (Intermediate, Verified 02/17/25 16:53) leg edema empagliflozin (From Jardiance) Adverse Reaction (Verified 02/17/25 16:53) vaginal candidiasis Medication List - Last Reconciled 03/03/25 by Jayro Devine MD [adult diapers As directed] albuterol sulfate 90 mcg/actuation 2 puffs inhalation Q4-6H PRN 30 days alendronate 70 mg PO QWEEK apixaban (Eliquis) 5 mg PO BID 90 days blood sugar diagnostic TEST 3 TIMES DAILY blood-glucose meter ([employer] Ultra2 Meter) As directed- TID cane As directed cholecalciferol (vitamin D3) 25 mcg PO DAILY 90 days commode (bedside commode) As directed dulaglutide (Trulicity) 1.5 mg (0.5 mL) subcut QWEEK 28 days fluticasone propion-salmeterol 100-50 mcg/dose (Wixela Inhub) 1 inh inhalation BID gabapentin 300 mg (3 x 100 mg) PO BEDTIME 30 days isosorbide mononitrate ER 60 mg PO DAILY 90 days levalbuterol tartrate 45 mcg/actuation (Xopenex HFA) 2 puffs inhalation Q4-6H PRN losartan 50 mg PO DAILY 90 days magnesium oxide 400 mg PO DAILY 90 days metformin 1,000 mg PO BID 90 days metoprolol succinate ER 50 mg PO DAILY metoprolol succinate ER 100 mg PO DAILY 90 days omeprazole 20 mg PO DAILY 90 days [One touch Ultra Blue test strips Use 3 times a day] prednisone 60 mg (3 x 20 mg) PO DAILY 3 days rosuvastatin 10 mg PO DAILY 90 days underpads (Certainty Underpads) Use 1 to 2 times a day walker with brakes and seat HPI Comments Details: 84 YO Female with PMHx Osteoporosis, DM2, CKD Stage 3, AFib on chronic AC with eliquis who is seen in F/U for Osteoporosis. First diagnosed in 2021 with her first DXA. She began treatment for her Osteoporosis with Prolia with her first injection 04/04/2022. After her initial visit we completed a biochemical assessment for secondary causes of Osteoporosis, which did reveal an abnormal SPEP. She was referred to Heme-Onc and underwent additional testing, and per Heme-Onc no evidence of multiple myeloma or MGUS. No history of pathologic fracture or ONJ. Has 0-1 servings of dietary calcium per day in the form of milk and cheese. Takes Calcium citrate 600 mg PO BID. She takes Vitamin D 1000 IU daily. Uses PPI daily and also anticoagulant eliquis since June 2021. Denies ever using antiepileptic or glucocorticoid medication. Does no scheduled exercise. Fracture history: Fractured her R shoulder in 2011 in [place], this was traumatic. 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 Menses was regular. . Breastfed for 9-12 months in total. Menopause was age 49. She did not use HRT. Denies a history of Kidney stones. Denies a family history of Osteoporosis or hip fracture. UTD on dental cleanings and sees dentist every 6 months. No planned upcoming dental work or extractions. DXA: 09/01/2021 FINDINGS: AP SPINE L1-L4: BMD 0.934 g/cm2, Z-score -0.1, T-score -2.0, osteopenia. LEFT FEMUR, NECK: BMD 0.694 g/cm2, Z-score -0.2, T-score -2.5, osteoporosis. LEFT FEMUR, TOTAL: BMD 0.858 g/cm2, Z-score 1.0, T-score -1.2, osteopenia. Labs: Laboratory Tests 10/03/22 10/03/22 10/03/22 15:43 15:45 15:45 Creatinine 1.15 Estimated GFR 45 N-Telopeptide X-linked 19 25-OH Vitamin D Total 33.3 PTH Intact 44 Calcium (PTH Intact) 10.1 Was on Prolia since 04/14 Transitioned to alendronate in 03/2024 . No fx back or hip . On alendronate 70 mg Q weekly The patient is an 84-year-old female presenting with osteoporosis management. She has been taking alendronate for almost a year, with the treatment scheduled to conclude in March. Prior to alendronate, she was on Prolia. The patient has tolerated alendronate well, with no fractures reported since the last visit, indicating effective management of her osteoporosis. A urine test conducted previously showed favorable results, suggesting the medication's efficacy. The plan includes discontinuing alendronate in March and continuing with calcium and vitamin D supplementation. A follow-up urine NTX test is scheduled for June to monitor the condition further. [facility] Medical History COPD (chronic obstructive pulmonary disease) Left shoulder pain Hyperlipidemia LDL goal <100 Abnormal SPEP Vitamin D deficiency Osteoporosis Age related osteoporosis Physical exam Hypomagnesemia Atrial fibrillation with rapid ventricular response Urinary incontinence Abnormal EKG Screening for osteoporosis Neuropathy Microalbuminuria JONNY (obstructive sleep apnea) Left shoulder pain Anemia GERD (gastroesophageal reflux disease) Coronary artery disease Hypertension Type 2 diabetes mellitus with hyperglycemia Surgical History History of surgery on arm Hx of dilation and curettage Hx of breast biopsy Family History Mother Diabetes mellitus Father CAD (coronary artery disease) Sister Lymphoma Breast cancer Brother Colon cancer Social History Household Members: Family Housing: House Are you a primary infant caregiver to a significant other at home: No Do you presently have visiting nurse or other home services: Yes (insurance nurse) Alcohol intake: never Patient Tobacco Use Status: Never used Tobacco e-Cigarette/Vaping Use: Never Used Second Hand Smoke Exposure: No service: No Current occupational status: disabled Cognitive needs: No Hearing needs: No Vision needs: Yes Physical Exam Vital Signs: Last Vital Signs Pulse 80 03/03/25 14:44 BP 132/54 L 03/03/25 14:44 Pulse Ox 95 03/03/25 14:44 Oxygen Delivery Method Room Air 03/03/25 14:44 BMI result Body Mass Index 23.0 Assessment & Plan Assessment & Plan (1) Osteoporosis: Code(s): M81.0 - Age-related osteoporosis without current pathological fracture Category: Medical Plan: This 83-year-old female with a history of osteoporosis and negative secondary workup currently being treated with Prolia since 04/04/2022. Receive last Prolia injection 10/19/2023 and has been on alendronate since 03/2024 would suppressed urine NTX Plan to continue alendronate 70 mg Q weekly we will give alendronate for full year until 03/2025. We will have patient return in 06/2025 if the checking urine NTX 1. Osteoporosis The patient has been on alendronate for nearly a year, with good tolerance and no fractures reported. The plan is to discontinue alendronate in March and continue with calcium and vitamin D supplementation. A follow-up urine NTX test is scheduled for June to assess the condition further. I discussed with the patient the continuation of alendronate until March, after which it will be discontinued. We will continue with calcium and vitamin D supplementation. A follow-up urine test is planned for June to monitor the effectiveness of the treatment. I advised the patient to report any fractures or significant changes in her condition. - Continue taking alendronate once weekly until March. - After stopping alendronate, continue with calcium and vitamin D supplements. - Schedule a urine test in June. - Report any fractures or significant changes in condition immediately. The patient had an opportunity to ask questions regarding treatment plan. The patient expressed understanding and agreement with the above treatment plan. Patient was informed and verbally consented to the use of an ambient scribe for clinic note documentation during this visit. Orders: Orders Collagen Crosslinks NTX 4 Months M81.0 - Age-related osteoporosis without current pathological fracture Coding Level of Care Code Est Pt Level 3 (34350) Diagnoses Osteoporosis M81.0
[2025-03-03 14:44] VITALS: BP 132/54; PULSE 80; O2SAT 95; BMI 23.0
--- OUTSIDE RECORDS SUMMARY | 2025-03-03 15:03 | XMS_ITS | Clinical Summary ---
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 2 Active dulaglutide (Trulicity) 1.5 mg/0.5 mL pen injector injection Inject 0.5 mL (1.5 mg total) under the skin 1 (one) time per week. Monday 1 Active gabapentin (NEURONTIN) 100 mg capsule Take 1 capsule (100 mg total) by mouth at bedtime. 0 Active metFORMIN (GLUCOPHAGE) 1,000 mg tablet Take 1 tablet (1,000 mg total) by mouth 2 (two) times a day with meals. 0 Active omeprazole (PriLOSEC) [address] capsule Take 1 capsule (20 mg total) by mouth 1 (one) time each day. 0 Active tiZANidine (ZANAFLEX) 2 mg tablet Take [...] total) by mouth every 7 (seven) days. 5 Active rosuvastatin (CRESTOR) 10 mg tablet Take 1 tablet (10 mg total) by mouth 1 (one) time each day. 5 Active fluticasone-karolina meterol (ADVAIR DISKUS) 250-50 mcg/dose diskus inhaler Inhale 1 puff by mouth 2 (two) times a day. 1 each 5 026 Active albuterol HFA (PROAIR HFA ; PROVENTIL HFA ; VENTOLIN HFA) 90 mcg/actuation inhaler Inhale 2 puffs by mouth every 6 (six) hours if needed for wheezing. 6.7 g 3 5 026 Active losartan (COZAAR) 25 mg tablet Take 1 tablet (25 mg total) by mouth 1 (one) time each day. 5 Active pioglitazone (ACTOS) 30 mg tablet Take 1 tablet (30 mg total) by mouth 1 (one) time each day. 5 Active metoprolol succinate (TOPROL-XL) 200 mg 24 hr tablet Take 0.5 tablets (100 mg total) by mouth daily. Active metoprolol tartrate (LOPRESSOR) 100 mg tablet Take 1 tablet (100 mg total) by mouth. Active albuterol HFA (PROAIR HFA ; PROVENTIL HFA ; VENTOLIN HFA) 90 mcg/actuation inhaler Inhale 1-2 puffs by mouth every 4 (four) hours if needed for wheezing. 6.7 g 5 Active isosorbide mononitrate (IMDUR) 60 mg 24 hr tablet Take 2 tablets (120 mg total) by mouth 1 (one) time each day. Do not crush or chew. 60 each 11 5 026 Active isosorbide mononitrate (IMDUR) 60 mg 24 hr tablet Take 1 tablet (60 mg total) by mouth 1 (one) time each day. Do not crush or chew. 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 Govea on November 2024 Diabetes mellitus type 2 wit h neurological manifestations ([facility] V24, [facility] V28) 05/03/2017 Hyperlipidemia 05/03/2017 Hypertension 05/03/2017 Allergic rhinitis 04/25/2017 Asthma-COPD overlap syndrome ([facility] V24, [facility] V28) 04/25/2017 Overview (04/03/2024): Last [...] unspecified organism, unspecified acute renal failure type ([facility] V24, [facility] V28) 09/04/2024 09/06/2024 Encounters Date Type Department Care Team Description 02/12/2025 12:14 AM EDT - 02/12/2025 2:52 AM EDT Emergency [facility] Emergency [address] [place] [address] Ruth Alford MD Hypertensive urgency (Primary Dx); Uncontrolled hypertension; Feeling unwell; Lightheadedness; Nonintractable episodic headache, unspecified headache type Discharge Disposition: Home or Self Care 01/31/2025 2:42 AM EDT - 01/31/2025 5:32 AM EDT Emergency [facility] Emergency [address] [place] [phone] Severo Cha MD COVID (Primary Dx) Discharge Disposition: Home or Self Care 12/03/2024 1:30 PM EDT Office Visit Infectious Disease - [place] [address] [facility] [address] [place] [phone] Natalie Govea MD MAI (mycobacterium avium-intracellulare) ([facility] V24, [facility] V28) (Primary Dx) from Last 3 Months Immunizations Name Administration [...] mellitus type 2 wit h neurological manifestations ([facility] V24, [facility] V28) 05/03/2017 DX:Diabetes mellitus type 2 [...] Physical Abuse 09/05/2024 Verbal Abuse 09/05/2024 Comments No Sex and Gender Information Value Date Recorded Sex Assigned at Female 08/28/2024 8:55 PM EST Legal Sex Female 8:25 AM EST Gender Identity Female 08/28/2024 8:55 PM EST Sexual Orientation Straight 08/28/2024 8: 55 PM EST Obstetrics History Last Filed Vital Signs Vital Sign Reading Time Taken Comments Blood Pressure 165/81 02/12/2025 1:46 AM EDT Pulse 70 02/12/2025 1:40 AM EDT Temperature 36.9 C (98.4 F) 02/12/2025 1:40 AM EDT Respiratory Rate 20 02/11/2025 11:02 PM EDT Oxygen Saturation 97% 02/12/2025 1:40 AM EDT Inhaled Oxygen Concentration - - Weight 60.8 kg (134 lb) 02/11/2025 11:02 PM EDT Height 160 cm (5' 3 ) 02/11/2025 11:02 PM EDT Body Mass Index 23.74 02/11/2025 11:02 PM EDT Plan of Treatment Upcoming Encounters Date Type Department Care Team (Late st Contact Info) Description 05/08/2025 10:45 AM EDT Office Visit Pulmonolgy - [place] [address] [phone] Fco Parsons MD [address] [address] 06/17/2025 2:00 PM EST Office Visit Infectious Disease - [place] [address] [phone] Natalie Govea MD [address] [address] Health Maintenance Due Date Last Done Comments [...] ( season) 2024 Breast Cancer Screening 04/04/2024 07/11/20, 07/01/2019, 06/28/2018 Cholesterol Screening (Lipid Panel) 06/05/2024 06/05/2019 Depression Screening 07/24/2024 Diabetes: Blood Sugar Control Test (HGBA1C) 03/04/2025 09/04/2024, 06/05/2019, 06/05/2019 Influenza Vaccine (#1) 2025 05/03/2017, 2014 Falls Risk Assessment 09/06/2025 09/06/2024 Diabetes: Annual GFR (Glomerular Filtration Rate) 02/11/2026 02/11/2025, 01/31/2025, 10/31/2024, Additional history exists Hypertension/CHF/CAD Annual BMP Blood Test 02/11/2026 02/11/2025, 01/31/2025, 10/31/2024, Additional history exists Pneumococcal Vaccine: 50+ Years [...] Procedure Name Priority Date/Time Associated Diagnosis Comments XR CHEST 2 VIEWS STAT 02/12/2025 1:[address] HEAD WO CONTRAST STAT 02/12/2025 1 2:00 AM EDT ECG ANNOTATED 02/12/2025 TROPONIN I HIGH SENSITIVITY STAT 02/11/2025 11:13 PM EDT D-DIMER STAT 02/11/2025 11:13 PM EDT COMPREHENSIVE METABOLIC PANEL STAT 02/11/2025 11:13 PM EDT COMPLETE BLOOD COUNT STAT 02/11/2025 11:13 PM EDT B-TYPE NATRIURETIC PEPTIDE STAT 02/11/2025 11:13 PM EDT VENOUS BLOOD GAS STAT 02/11/2025 11:1 3 PM EDT ECG 12-LEAD STAT 02/11/2025 11:04 PM EDT CULTURE THROAT STAT 01/31/2025 4:10 AM EDT RAPID STREP A SCREEN STAT 01/31/2025 4:10 AM EDT XR CHEST 2 VIEWS STAT 01/31/2025 1:50 AM EDT RESPIRATORY VIRUS PANEL MOLECULAR STUDY STAT 01/31/2025 12:34 AM EDT CBC WITH AUTO DIFFERENTIAL STAT 01/31/2025 12:33 AM EDT BASIC METABOLIC PANEL STAT 01/31/2025 12:33 AM EDT CBC AND DIFFERENTIAL STAT 01/31/2025 12:33 AM EDT HEMOGLOBIN A1C Add-On 09/04/2024 9:10 AM EST DOMINIC SCREENING DIGITAL Routine 07/01/2019 4:51 PM EST Encounter for screening mammogram for malignant neoplasm of breast HM URINE ALBUMIN CREATININE RATIO Routine 06/05/2019 LIPID PANEL Routine 06/05/2019 from Last 3 Months or Most Recently Relevant to Health Maintenance Results * XR Chest 2 Views (02/12/2025 1:27 AM EDT) Only the most recent of2 resultswithin the time period is included. Anatomical Region Laterality Modality Body Radiographic Rosey ging 02/12/2025 8:59 AM EDT Impressions 02/12/2025 9:23 AM EDT FINDINGS/IMPRESSION: Lungs are clear. No pleural effusion or pneumothorax. Cardiac silhouette is normal in size. Degenerative changes seen throughout the bones. -------- FINAL REPORT -------- Dictated By: JUSTIN MONCADA Dictated Date: 02/12/2025 08:59 ET Assigned Physician: JUSTIN MONCADA Reviewed and Electronically Signed By: JUSTIN MONCADA Signed Date: 02/12/2025 09:23 ET Workstation ID: [id number] Transcribed By: Self Edit Transcribed Date: 02/12/2025 08:59 ET Narrative 02/12/2025 9:23 AM EDT XR CHEST 2 VIEWS INDICATION: Chest pain TECHNIQUE: XR CHEST 2 VIEWS COMPARISON: 01/31/2025 Procedure Note Justin Moncada MD - 02/12/2025 XR CHEST 2 VIEWS INDICATION: Chest pain TECHNIQUE: XR CHEST 2 VIEWS COMPARISON: 01/31/2025 IMPRESSION: FINDINGS/IMPRESSION: Lungs are clear. No pleural effusion orpneumothorax. Cardiac silhouette is normal in size. Degenerative changesseen throughout the bones. -------- FINAL REPORT -------- Dictated By: JUSTIN MONCADA Dictated Date: 02/12/2025 08:59 ET Assigned Physician: JUSTIN MONCADA Reviewed and Electronically Signed By: JUSTIN MONCADA Signed Date: 02/12/2025 09:23 ET Workstation ID: [id number] Transcribed By: Self Edit Transcribed Date: 02/12/2025 08:59 ET Joanna GARCIA IMG XR PROCEDURES Final Result * CT Head wo Contrast (02/12/2025 12:00 AM EDT) Anatomical Region Laterality Modality Head and Neck Computed Tomogra phy 02/12/2025 12:3 9 AM EDT Impressions 02/12/2025 12:39 AM EDT 1. No acute intracranial findings. This document has been electronically signed by: Misael Kunz MD on 02/12/2025 00:39:18 Narrative 02/12/2025 12:39 AM EDT INDICATION: Headache, HTN CT head without contrast Comparison: None provided Findings: No intra-axial mass, midline shift, hydrocephalus, or acute hemorrhage. Mild atrophy like change. The visualized paranasal sinuses and mastoid air cells are normal. The orbits are unremarkable. No skull fracture. Procedure Note Misael Kunz MD - 02/12/2025 INDICATION: Headache, HTN CT head without contrast Comparison: None provided Findings: No intra-axial mass, midline shift, hydrocephalus, or acute hemorrhage. Mild atrophy like change. The visualized paranasal sinuses and mastoid air cells are normal. The orbits are unremarkable. No skull fracture. IMPRESSION: 1. No acute intracranial findings. This document has been electronically signed by: Misael Donaldson MD on 02/12/2025 00:39:[address] PROCEDURES Final Result * ECG-Annotated (02/12/2025) Provider Onbase ECG ORDERABLES Final Result * Troponin I high sensitivity (02/11/2025 11:13 PM EDT) [facility] High Sensitivity Troponin I 4 <=54 ng/L LAB CHEMISTRY METHOD 02/11/2025 11:45 PM EDT [facility] Blood Venous blood specimen / Unknown Venipuncture / Unknown 02/11/2025 11:13 PM EDT 02/11/2025 11:[address] [facility] - 02/11/2025 11:45 PM EDT High levels of biotin in samples may falsely decrease hsTroponin values. Use caution when interpreting hsTroponin results in patients taking biotin who exhibit renal impairment (eGFR <60) or in patients taking more than 20 mg/day of biotin. Joanna GARCIA LAB BLOOD ORDERABLES Fin al Result [facility] [address] [place] [address], * D-dimer, quantitative (02/11/2025 11:13 PM EDT) [facility] D-Dimer, Quant (D-DU) <150 <=230 ng/mL DDU LAB COAGULATION METHOD 02/11/2025 11:41 PM EDT [facility] Blood Venous blood specimen / Unknown Venipuncture / Unknown 02/11/2025 11:13 PM EDT 02/11/2025 11:[address] [facility] - 02/11/2025 11:41 PM EDT D-Dimer <230 ng/mL (D-Dimer units) is the threshold for exclusion of DVT/PE. D-Dimer may be elevated in: Critically ill, severely infected, trauma patients, DIC, acute CVA, acute [place], unstable angina, AF, old age, , and smoking. D-Dimer may be decreased with: Initiation of heparin therapy and oral anticoagulants. us Joanna GARCIA LAB BLOOD ORDERABLES Fin al Result [facility] [address] [place] [address], * (ABNORMAL) CBC (02/11/2025 11:13 PM EDT) WBC 7.8 4.8 - 10.8 K/mcL LAB HEMETOLOGY METHOD 02/11/2025 11:24 PM EDT [facility] RBC 4.30 3.80 - 4.80 M/mcL LAB HEMETOLOGY METHOD 02/11/2025 11:24 PM EDT [facility] Hemoglobin 11.0(L) 11.5 - 16.0 g/dL LAB HEMETOLOGY METHOD 02/11/2025 11:24 PM EDT [facility] Hematocrit 34.8(L) 35.0 - 47.0 % LAB HEMETOLOGY METHOD 02/11/2025 11:24 PM EDT [facility] MCV 81.3 79.0 - 98.0 FL LAB HEMETOLOGY METHOD 02/11/2025 11:24 PM EDT [facility] MCH 25.7(L) 27.0 - 32.0 pcg LAB HEMETOLOGY METHOD 02/11/2025 11:24 PM EDT [facility] MCHC 31.6(L) 32.0 - 37.0 g/dL LAB HEMETOLOGY METHOD 02/11/2025 11:24 PM EDT [facility] RDW 13.2 11.0 - 15.0 % LAB HEMETOLOGY METHOD 02/11/2025 11:24 PM EDT [facility] Platelets 293 130 - 400 K/mcL LAB HEMETOLOGY METHOD 02/11/2025 11:24 PM EDT [facility] MPV 9.3 7.0 - 11.0 FL LAB HEMETOLOGY METHOD 02/11/2025 11:24 PM EDT [facility] NRBC 0.0 <1.0 % LAB HEMETOLOGY METHOD 02/11/2025 11:24 PM EDT [facility] NRBC Absolute 0.00 <0.10 K/mcL LAB HEMETOLOGY METHOD 02/11/2025 11:24 PM EDT [facility] Blood Venous blood specimen / Unknown Venipuncture / Unknown 02/11/2025 11:13 PM EDT 02/11/2025 11:20 PM EDT Joanna GARCIA LAB BLOOD ORDERABLES Fin al Result Performing Organization Address City/[facility]/ZIP Co de Phone Number [facility] [address] [place] [address], [place] [phone] * BNP (02/11/2025 11:13 PM EDT) Pathologist [facility] BNP 86 <=100 pcg/mL LAB CHEMISTRY METHOD 02/11/2025 11:52 PM EDT [facility] Blood Venous blood specimen / Unknown Venipuncture / Unknown 02/11/2025 11:13 PM EDT 02/11/2025 11:20 PM EDT Joanna GARCIA LAB BLOOD ORDERABLES Fin al Result [facility] [address] [place] [address], [place] [phone] * (ABNORMAL) Blood gas, venous (02/11/2025 11:13 PM EDT) pH, Liam 7.33 7.32 - 7.42 pH 02/11/2025 11:24 PM EDT [facility] pCO2, Liam 53(H) 41 - 51 mmHg 02/11/2025 11:24 PM EDT [facility] pO2, Liam 35 25 - 40 mmHg 02/11/2025 11:24 PM T [facility] HCO3, Venous 24.9 22.0 - 26.0 mmol/L 02/11/2025 11:24 PM T [facility] O2 Sat, Liam 59.7 % 02/11/2025 11:24 PM T [facility] Base Excess, Liam 1.2 -2.0 - 2.0 mmol/L 02/11/2025 11:24 PM EDT [facility] Blood Venous blood specimen / Unknown Venipuncture / Unknown 02/11/2025 11:13 PM EDT 02/11/2025 11:19 PM EDT us Joanna GARCIA LAB BLOOD ORDERABLES Fin al Result [facility] [address] [place] [address], * (ABNORMAL) Comprehensive metabolic panel (02/11/2025 11:13 PM EDT) Sodium 137 133 - 145 mmol/L LAB CHEMISTRY METHOD 02/12/2025 12:01 AM [facility] Potassium 4.9 3.5 - 5.5 mmol/L LAB CHEMISTRY METHOD 02/12/2025 12:01 AM [facility] Chloride 107 96 - 110 mmol/L LAB CHEMISTRY METHOD 02/12/2025 12:01 AM [facility] CO2 26 21 - 32 mmol/L LAB CHEMISTRY METHOD 02/12/2025 12:01 AM [facility] Anion Gap 4 3 - 11 LAB CHEMISTRY METHOD 02/12/2025 12:01 AM [facility] Glucose 137(H) 70 - 100 mg/dL LAB CHEMISTRY METHOD 02/12/2025 12:01 AM [facility] BUN 20 5 - 25 mg/dL LAB CHEMISTRY METHOD 02/12/2025 12:01 AM [facility] Creatinine 1.21(H) 0.50 - 1.10 mg/dL LAB CHEMISTRY METHOD 02/12/2025 12:01 AM [facility] eGFR 44(L) >=60 mL/min/1. 73m2 LAB CHEMISTRY METHOD 02/12/2025 12:01 AM [facility] Comment:Calculation based on the Chronic Kidney Disease Epidemiology Collaboration (CKD-EPI) equation refit without adjustment for race. BUN/Creatinine Ratio 16.5 LAB CHEMISTRY METHOD 02/12/2025 12:01 AM [facility] Calcium 9.0 8.5 - 10.5 mg/dL LAB CHEMISTRY METHOD 02/12/2025 12:01 AM [facility] AST (SGOT) 14 10 - 42 unit/L LAB CHEMISTRY METHOD 02/12/2025 12:01 AM [facility] ALT (SGPT) 21 10 - 60 unit/L LAB CHEMISTRY METHOD 02/12/2025 12:01 AM [facility] Alkaline Phosphatase 77 42 - 121 unit/L LAB CHEMISTRY METHOD 02/12/2025 12:01 AM [facility] Total Protein 7.2 6.0 - 8.0 g/dL LAB CHEMISTRY METHOD 02/12/2025 12:01 AM [facility] Albumin 3.8 3.2 - 5.0 g/dL LAB CHEMISTRY METHOD 02/12/2025 12:01 AM [facility] Total Bilirubin 0.3 0.0 - 1.4 mg/dL LAB CHEMISTRY METHOD 02/12/2025 12:01 AM [facility] Blood Venous blood specimen / Unknown Venipuncture / Unknown 02/11/2025 11:13 PM EDT 02/11/2025 11:20 PM EDT Joanna GARCIA LAB BLOOD ORDERABLES Fin al Result Performing Organization Address [facility] Co de Phone Number [facility] [address] [place] [address], [place] [phone] * ECG 12 lead (02/11/2025 11:04 PM EDT) Ventricular Rate ECG 83 BPM GEM[facility] Atrial Rate 83 BPM GEM[facility] P-R Interval 186 ms GEMUSE QRS Duration 120 ms GEMUSE Q-T Interval 366 ms GEMUSE QTc 430 ms GEMUSE P Wave [place] 89 degrees GEMUSE R [place] 41 degrees GEMUSE T [place] 60 degrees GEMUSE ECG Interpretation Normal sinus rhythm Right bundle branch block Abnormal ECG When compared with ECG of 30-OCT-2024 18:04, No significant change was found Confirmed by MD SANCHEZ JOHN ([id number]) on 02/12/2025 6:57:35 AM GEMUSE 02/11/2025 11:0 4 PM EDT 02/12/2025 6:57 AM EDT Joanna GARCIA ECG ORDERABLES Final Re sult Performing Organization Address [facility] de Phone Number GEMUSE * Rapid strep A screen (01/31/2025 4:10 AM EDT) Pathologist [facility] Strep A Ag Negative Negative, Invalid 01/31/2025 5:29 AM EDT [facility] Comment:Refer to Throat Cult ure. Swab Structure of anterior portion of neck / Unknown Non-blood Collection / Unknown 01/31/2025 4:10 AM EDT 01/31/2025 4:36 AM EDT Severo Cha MD LAB MICROBIOLOGY - GENERAL ORDERABLES Final Result Performing Organization Address [facility] Co de Phone Number [facility] [address] [place] [address], [place] [phone] * Culture throat (01/31/2025 4:10 AM EDT) Pathologist [facility] Culture, Throat No pathogens isolated. 02/02/2025 9:10 AM EDT [facility] Swab Structure of anterior portion of neck / Unknown Non-blood Collection / Unknown 01/31/2025 4:10 AM EDT 01/31/2025 4:36 AM EDT Severo Cha MD LAB MICROBIOLOGY - GENERAL ORDERABLES Final Result [facility] [address] [place] [address], * (ABNORMAL) Respiratory virus panel molecular study (01/31/2025 12:34 AM EDT) [facility] Adenovirus Detection by PCR Not Detected Not Detected LAB MICROBIOLOGY METHOD 01/31/2025 1:59 AM EDT [facility] Influenza A PCR Not Detected Not Detected LAB MICROBIOLOGY METHOD 01/31/2025 1:59 AM EDT [facility] Influenza B PCR Not Detected Not Detected LAB MICROBIOLOGY METHOD 01/31/2025 1:59 AM EDT [facility] Coronavirus 229E Not Detected Not Detected LAB MICROBIOLOGY METHOD 01/31/2025 1:59 AM EDT [facility] Coronavirus HKU1 Not Detected Not Detected LAB MICROBIOLOGY METHOD 01/31/2025 1:59 AM EDT [facility] Coronavirus OC43 Not Detected Not Detected LAB MICROBIOLOGY METHOD 01/31/2025 1:59 AM EDT [facility] Coronavirus NL63 Not Detected Not Detected LAB MICROBIOLOGY METHOD 01/31/2025 1:59 AM EDT [facility] Parainfluenza Virus 1 Not Detected Not Detected LAB MICROBIOLOGY METHOD 01/31/2025 1:59 AM EDT [facility] Parainfluenza Virus 2 Not Detected Not Detected LAB MICROBIOLOGY METHOD 01/31/2025 1:59 AM EDT [facility] Parainfluenza Virus 3 Not Detected Not Detected LAB MICROBIOLOGY METHOD 01/31/2025 1:59 AM EDT [facility] Parainfluenza Virus 4 Not Detected Not Detected LAB MICROBIOLOGY METHOD 01/31/2025 1:59 AM EDT [facility] RSV PCR Not Detected Not Detected LAB MICROBIOLOGY METHOD 01/31/2025 1:59 AM EDT [facility] Human Metapneumovirus A and B Not Detected Not Detected LAB MICROBIOLOGY METHOD 01/31/2025 1:59 AM EDT [facility] Rhinovirus/Entero virus Not Detected Not Detected LAB MICROBIOLOGY METHOD 01/31/2025 1:59 AM EDT [facility] Bordetella pertussis Not Detected Not Detected LAB MICROBIOLOGY METHOD 01/31/2025 1:59 AM EDT [facility] Bordetella parapertussis Not Detected Not Detected LAB MICROBIOLOGY METHOD 01/31/2025 1:59 AM EDT [facility] Mycoplasma pneumo by PCR Not Detected Not Detected LAB MICROBIOLOGY METHOD 01/31/2025 1:59 AM EDT [facility] Chlamydia pneumoniae Not Detected Not Detected LAB MICROBIOLOGY METHOD 01/31/2025 1:59 AM EDT [facility] SARS COV-2 Detected(A ) Not Detected LAB MICROBIOLOGY METHOD 01/31/2025 1:59 AM EDT [facility] Swab Both anterior nares / Unknown Non-blood Collection / Unknown 01/31/2025 12:34 AM EDT 01/31/2025 12:[address] [facility] - 01/31/2025 1:59 AM EDT Testing was performed using the [employer] Respiratory Pathogen PCR Assay. All results must [...] LAB MICROBIOLOGY - GENERAL ORDERABLES Final Result [facility] [address] [place] [address], * (ABNORMAL) CBC auto differential (01/31/2025 12:33 AM EDT) [facility] WBC 8.7 4.8 - 10.8 K/mcL LAB HEMETOLOGY METHOD 01/31/2025 1:02 AM EDT [facility] RBC 4.30 3.80 - 4.80 M/mcL LAB HEMETOLOGY METHOD 01/31/2025 1:02 AM EDT [facility] Hemoglobin 11.1(L) 11.5 - 16.0 g/dL LAB HEMETOLOGY METHOD 01/31/2025 1:[facility] Hematocrit 34.7(L) 35.0 - 47.0 % LAB HEMETOLOGY METHOD 01/31/2025 1:02 AM EDT [facility] MCV 80.3 79.0 - 98.0 FL LAB HEMETOLOGY METHOD 01/31/2025 1:02 AM [facility] MCH 25.7(L) 27.0 - 32.0 pcg LAB HEMETOLOGY METHOD 01/31/2025 1:02 AM EDT [facility] MCHC 32.0 32.0 - 37.0 g/dL LAB HEMETOLOGY METHOD 01/31/2025 1:02 AM [facility] RDW 13.3 11.0 - 15.0 % LAB HEMETOLOGY METHOD 01/31/2025 1:02 AM [facility] Platelets 276 130 - 400 [...] K/mcL LAB HEMETOLOGY METHOD 01/31/2025 1:02 AM T [facility] Basophils Absolute 0.05 0.00 - 0.20 K/[facility] LAB HEMETOLOGY METHOD 01/31/2025 1:02 AM T [facility] Immature Granulocytes Absolute 0.03 0.00 - 0.03 K/[facility] LAB HEMETOLOGY METHOD 01/31/2025 1:02 AM EDT [facility] Blood Venous blood specimen / Unknown Venipuncture / Unknown 01/31/2025 12:33 AM EDT 01/31/2025 12:54 AM EDT Severo Cha MD LAB BLOOD ORDERABLES Final Result [facility] [address] [place] [address], * (ABNORMAL) Basic metabolic panel (01/31/2025 12:33 [...] LAB CHEMISTRY METHOD 01/31/2025 1:27 AM EDT [facility] Creatinine 1.09 0.50 - 1.10 mg/dL LAB CHEMISTRY METHOD 01/31/2025 1:27 AM EDT [facility] eGFR 50(L) >=60 mL/min/1. 73m2 LAB CHEMISTRY METHOD 01/31/2025 1:27 AM EDT [facility] Comment:Calculation based on the Chronic Kidney Disease Epidemiology Collaboration (CKD-EPI) equation refit without adjustment for race. BUN/Creatinine Ratio 22.0 LAB CHEMISTRY METHOD 01/31/2025 1:27 AM EDT [facility] Calcium 9.0 8.5 - 10.5 mg/dL LAB CHEMISTRY METHOD 01/31/2025 1:27 AM EDT [facility] Blood Venous blood specimen / Unknown Venipuncture / Unknown 01/31/2025 12:33 AM EDT 01/31/2025 12:55 AM EDT us Severo Cha MD LAB BLOOD ORDERABLES Final Result [facility] [address] [place] [address], * (ABNORMAL) Hemoglobin A1c (09/04/2024 9:10 AM EST) Hemoglobin A1C 8.5(H) <6.5 % LAB CHEMISTRY METHOD 09/04/2024 5:11 PM EST [facility] Mean Bld Glu Estim. 197 mg/dL LAB CHEMISTRY METHOD 09/04/2024 5:11 PM EST [facility] Blood Venous blood specimen / Unknown Venipuncture / Unknown 09/04/2024 9:10 AM EST 09/04/2024 9:26 AM EST us Laron Maldonado MD LAB BLOOD ORDERABLES Final Res ult [facility] [address] [facility] [place] [address], * DOMINIC SCREENING DIGITAL (07/01/2019 4:51 PM EST) Anatomical Region Laterality Modality Mammography 07/01/2019 12:3 0 PM EST Narrative 07/01/2019 4:51 PM EST [facility] Diagnostic Imaging Department [address] [place] [address] Patient: KRISTIN VALDIVIA D.O.B./Age/Sex: 1940 - 78 - F Unit#: [id number] Location/Status: [facility] CLI Mnemonic[facility]Ordering [facility] Ordering Physician: GRISELDA VELAZQUEZ MD Dominic Screening Digital - 07/01/19 - 7 INDICATION: SCREENING COMPARISON: No prior studies are available for comparison. TECHNIQUE: CC and MLO views of the breasts were obtained, using full field digital mammography with 3D tomosynthesis views in the MLO projection. Computer aided detection with the imgfave 7.2-H was employed. Patient reports 2 sisters [...] a target date for the next mammogram. [id number] / [id number]) , [id number] Dictating Physician: BRODY SMITH MD Electronically Signed by: BRODY SMITH MD Dic Date/Time: 07/01/19 1646 Sign date/Time: 07/01/19 1651 Procedure Note Brody Smith - 07/13/2022 [facility] Diagnostic Imaging Department [address] [place] [address] [id number] Patient: MERI GONZALEZKRISTIN JOYA D.O.B./Age/Sex: 1940 - 78 - F Unit#: [id number] Location/Status: [facility] Mnemonic/Ordering Site: [facility] Ordering Physician: GRISELDA VELAZQUEZ MD Dominic Screening Digital - 07/01/19 - 1316 INDICATION: SCREENING COMPARISON: No prior studies are available for comparison. TECHNIQUE: CC and MLO views of the breasts were obtained, using full field digital mammography with 3D tomosynthesis views in the MLO projection. Computer aided detection with the imgfave 7.2-H was employed. Patient reports 2 sisters [...] a target date for the next mammogram. 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
--- OUTSIDE RECORDS SUMMARY | 2025-03-03 15:03 | XMS_ITS | Clinical Summary ---
Author Organization [employer] [facility] Address [address] [place] [address] Care Team Providers Care Players Assistant Name Role Phone Pam Wills MD [...] age to complete this topic Care Teams Players Assistant Relationship Specialty Start Date End Date Pam Wills MD [address] [facility] , [address] [facility] Physician Associ D/B/A: [facility] MERYL Braga [address] PCP - General Internal Medicine 02/02/22
--- OUTSIDE RECORDS SUMMARY | 2025-03-03 15:03 | XMS_ITS | Clinical Summary ---
Author Organization [facility]. Address [address] [address] Phone Care Team Providers Care Channel Manager Name Role Phone Pam Wills MD Primary Care Provider [phone] Allergies No known active allergies Medications Trulicity 1.5 MG/0.5ML solution pen-injector INJECT 1 DOSE UNDER THE SKIN ONCE A WEEK 1 Active gabapentin (NEURONTIN) 100 MG capsule Take 100 mg by mouth 1 (one) time each day 1 Active OneTouch Ultra test strip TEST THREE TIMES DAILY 1 Active metFORMIN (GLUCOPHAGE) 1000 MG tablet Take 1,000 mg by mouth 2 (two) times a day 1 Active omeprazole (PriLOSEC) [address] capsule Take 20 mg by mouth 1 (one) time each day 1 Active potassium chloride 10 MEQ CR tablet [...] mouth 2 (two) times a day Active alendronate (FOSAMAX) 70 MG tablet Take 70 mg by mouth 5 Active Cholecalciferol (Vitamin D3) 1000 units capsule Take by mouth Active losartan (COZAAR) 25 MG tablet Take 50 mg by mouth 1 (one) time each day Active amLODIPine (NORVASC) 5 MG tablet Take 5 mg by mouth 1 (one) time each day 02/21/20 25 Discontinu ed(Alterna te therapy) Active Problems Problem Noted Date Diagnosed Date Proteinuria 05/11/2021 Stage 3a chronic kidney disease 05/11/2021 Type 2 diabetes mellitus wit h diabetic chronic kidney disease 05/11/2021 Renal osteodystrophy 05/11/2021 Hyperlipidemia 05/03/2017 Hypertension 05/03/2017 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 [address] [phone] Jaylon Barreto MD Stage 3a chronic kidney disease (HCC) (Primary Dx); Type 2 diabetes mellitus with diabetic chronic kidney disease (HCC); Renal osteodystrophy 02/12/2025 Office Communication [facility] [address] [phone] Monica Sagastume from Last 3 Months Immunizations Immunization Administration Dates Next Due Influenza (IM) Preservative Free 05/29/2015 Pneumococcal Conjugate 13-Valent 05/03/2017 Pneumococcal Polysaccharide 05/01/2015 Family History Relation Status Comments Father Mother [...] Sign Reading Time Taken Comments Blood Pressure 144/60 02/20/2025 1:32 PM EDT Pulse 83 02/20/2025 1:32 PM EDT Temperature - - Respiratory Rate - - Oxygen Saturation 94% 02/20/2025 1:32 PM EDT Inhaled Oxygen Concentration - - Weight 59 kg (130 lb) 02/20/2025 1:32 PM EDT Height - - Body Mass Index - - Plan of Treatment Upcoming Encounters Date Type Department Care Team (Late st Contact Info) Description 05/22/2025 4:30 PM EDT [facility] [address] [phone] Jaylon Barreto MD [facility] [address] [phone] 10/21/2025 3:00 PM EDT Office Visit [facility] [address] [phone] Jaylon Barreto MD [facility] [address] [phone] Health Maintenance Due Date Last [...] Most Recently Relevant to Health Maintenance Insurance [facility] [employer] Medicare [facility] [employer] Medicare Care Teams Channel Manager Relationship Specialty Start Date End Date Pam Wills MD [address] [place], [place] PCP - General Internal Medicine 05/11/21
== END 2025-03-03 15:09 | disposition home or self-care (01) ==
LOC: HO.ENCR 14:37
PROVIDERS: PCP Internal Medicine; Visit Provider Internal Medicine Endocrinology, Diabetes & Metabolism
DX: M81.0 Age-related osteoporosis without current pathological fracture (principal)
CPT/HCPCS: 99213

== ENCOUNTER → 2025-03-03 14:36 | Outpatient (BNVA) | payer MEDICARE, OTHER, MEDICAID, SELFPAY | PROVIDERS: PCP Internal Medicine; Visit Provider Internal Medicine Endocrinology, Diabetes & Metabolism | DX: M81.0 Age-related osteoporosis without current pathological fracture (principal) | CPT/HCPCS: 99212 ==

== ENCOUNTER 2025-03-25 13:37 | Outpatient (AMB) | payer MEDICARE, OTHER, MEDICAID, SELFPAY ==
[2025-03-25 13:57] VITALS: BP 142/56; PULSE 76; BMI 22.6
--- NOTE | 2025-03-25 13:57 | A.OFFVIS_ITS ---
Vital Signs 03/25/25 13:57 Height 5 ft 3 in Weight 127 lb 6.835 oz BMI 22.6 BP 142/56 H Blood Pressure Location Lt brachial Position Sitting Pulse 76 Pulse Source Pulse Oximeter Intake Visit Reasons: f/u BP patient REquest Security Guard Supervisor Services: Security Guard Supervisor Present Security Guard Supervisor Name: Perlita Lindo [id number] Elan Accompanied by: Daughter Allergies amlodipine Adverse Reaction (Intermediate, Verified 03/25/25 14:03) leg edema empagliflozin (From Jardiance) Adverse Reaction (Verified 03/25/25 14:03) vaginal candidiasis Medication List - Last Reconciled 03/25/25 by Helen Bai NP-C [adult diapers As directed] albuterol sulfate 90 mcg/actuation 2 puffs inhalation Q4-6H PRN 30 days alendronate 70 mg PO QWEEK apixaban (Eliquis) 5 mg PO BID 90 days [blood pressure daily monitoring As directed] blood sugar diagnostic (Accu-Chek Guide test strips) As directed 3 times per day blood-glucose meter (Accu-Chek Guide Me Glucose Meter) As directed cane As directed cholecalciferol (vitamin D3) 25 mcg PO DAILY 90 days commode (bedside commode) As directed dulaglutide (Trulicity) 1.5 mg (0.5 mL) subcut QWEEK 28 days fluticasone propion-salmeterol 100-50 mcg/dose (Wixela Inhub) 1 inh inhalation BID gabapentin 300 mg (3 x 100 mg) PO BEDTIME 30 days isosorbide mononitrate ER 60 mg PO DAILY 90 days lancets (Accu-Chek Softclix Lancets) As directed 3 times per day levalbuterol tartrate 45 mcg/actuation (Xopenex HFA) 2 puffs inhalation Q4-6H PRN losartan 50 mg PO DAILY 90 days magnesium oxide 400 mg PO DAILY 90 days metformin 1,000 mg PO BID 90 days metoprolol succinate ER 50 mg PO DAILY metoprolol succinate ER 100 mg PO DAILY 90 days omeprazole 20 mg PO DAILY 90 days [One touch Ultra Blue test strips Use 3 times a day] underpads (Certainty Underpads) Use 1 to 2 times a day walker with brakes and seat HPI HPI f/u BP patient REquest: Details: Kristin is an 84-year-old female past medical history of hypertension, hyperlipidemia, diabetes, paroxysmal atrial fibrillation, sleep apnea who was recently seen at [facility] with reports of chest discomfort and ruled out for ACS. She now presents here for follow up. Today she reports that her blood pressure has been high at times and low at times. She says her systolic ranges from a low of 109 to a high of 180 with average readings 120-140 systolic. When her blood pressure is high she becomes anxious and this causes discomfort along her lower rib edge prompting ER evaluation. When she was in the ER most recently her blood pressure is recorded at 153/63. 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 She does have an intermittent cough which is not new. No PND, orthopnea or edema. No chest discomfort brought on by activities. She is mostly sedentary. She has no other chest discomfort besides the band along her lower rib edge when she is anxious. She does have occasional heart palpitations but these are not a primary concern today for her. No ligh theadedness, presyncope, syncope, falls. She is taking her medications as directed. Daughter is present. 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 [facility] Medical History COPD (chronic obstructive pulmonary disease) Left shoulder pain Hyperlipidemia LDL goal <100 Abnormal SPEP Vitamin D deficiency Osteoporosis Age related osteoporosis Physical exam Hypomagnesemia Atrial fibrillation with rapid ventricular response Urinary incontinence Abnormal EKG Screening for osteoporosis Neuropathy Microalbuminuria JONNY (obstructive sleep apnea) Left shoulder pain Anemia GERD (gastroesophageal reflux disease) Coronary artery disease Hypertension Type 2 diabetes mellitus with hyperglycemia Surgical History History of surgery on arm Hx of dilation and curettage Hx of breast biopsy Family History Mother Diabetes mellitus Father CAD (coronary artery disease) Sister Lymphoma Breast cancer Brother Colon cancer Social History Household Members: Family Housing: House Are you a primary rehab care assistant to a significant other at home: No Do you presently have visiting nurse or other home services: Yes (insurance nurse) Alcohol intake: never Patient Tobacco Use Status: Never used Tobacco e-Cigarette/Vaping Use: Never Used Second Hand Smoke Exposure: No service: No Current occupational status: disabled Cognitive needs: No Hearing needs: No Vision needs: Yes Review of Systems Const All systems reviewed & are unremarkable except as noted in HPI and below Denies daytime sleepiness, Denies difficulty sleeping, Denies snoring, Denies stops breathing during sleep and Denies weakness ENT Details: discomfort along lower rib edge at times Card Denies chest pain, Denies rapid heart rate, Denies irregular heart rhythm, Denies claudication, Denies leg edema, Denies lightheadedness, Reports palpitations, Denies dyspnea, Denies dyspnea on exertion, Denies orthopnea, Den ies paroxysmal nocturnal dyspnea and Denies slow heart rate Resp Denies cough, Denies dyspnea, Denies dyspnea on exertion and Denies snoring GI Reports no additional complaints, Denies hematochezia, Denies change in stool character and Denies dyspepsia Musc Denies abnormal gait, Denies muscle weakness and Denies numbness Neuro Denies abnormal gait, Denies numbness and Denies weakness Endo Reports palpitations Physical Exam Vital Signs: Last Vital Signs Pulse 76 03/25/25 13:57 BP 142/56 H 03/25/25 13:57 BMI result Body Mass Index 22.6 Const General: cooperative, healthy appearing, comfortable and no acute distress Orientation/consciousness: patient oriented x3 Neck Neck: Yes normal visual inspection Resp Effort & Inspection: normal respiratory effort Auscultation: clear to auscultation bilaterally, rales (left base), no rhonchi and no wheezes Cardio Rate: regular rate Rhythm: regular rhythm Heart sounds: S1 normal heart sound present, S2 normal heart sound present, no gallops, no murmurs and no rubs Neuro General: patient oriented x3 Extrem General: Yes normal to inspection, No no pedal edema and No calf tenderness Psych Appearance: grossly normal Mental Status: mental status grossly normal Speech and movement: Normal speech and movement present Assessment & Plan Assessment & Plan (1) Chest discomfort: Code(s): R07.89 - Other chest pain Category: Medical Plan: Reports of atypical chest discomfort, band around her lower ribs that occurs when she is anxious and has elevated blood pressures. Recent ER evaluation for this symptom and ruled out for ACS. She did have a nuclear stress test recently at [facility] and will try again to obtain that result. Unclear if her symptom is musculoskeletal related to anxiety, stress. Reviewed this with her, signs and symptoms of angina reviewed. Continue isosorbide and metoprolol. (2) Hypertension: Code(s): I10 - Essential (primary) hypertension Category: Medical Qualifiers: Hypertension type: essential hypertension Qualified Code(s): I10 - Essential (primary) hypertension Plan: Blood pressure goal less than 130/80. Elevated blood pressure readings are her primary concern today. She becomes very anxious when her blood pressure is high prompting ER evaluations. Blood pressure today 142/56 initially and recheck done by me 134/52. Reviewed low-salt diet with her and instructed to take blood pressure only once weekly, not daily. Continue current losartan, isosorbide, metoprolol. Informed her that if she does have an elevated reading she has to lay down for 20 minutes and relax and then recheck blood pressure. If she continues to have elevated readings she can call this office and additional antihypertensive agent may be added, question amlodipine. (3) PAF (paroxysmal atrial fibrillation): Code(s): I48.0 - Paroxysmal atrial fibrillation Category: Medical Plan: History of paroxysmal atrial fibrillation, treated with rhythm control. She is on metoprolol for heart rate control. She is on Eliquis for anticoagulation. Holter monitor done 12/26/24 for 1 day 19 hr, shoed SR, average rate 75 b/min, occ PAC and 3 SVE runs, longest 11 beats. Pulse is regular on exam today. Metoprolol had been increased recently.. Continue Metoprolol xl 100mg in am and 50mg in pm. Continue Eliquis. (4) Hyperlipidemia LDL goal <70: Code(s): E78.5 - Hyperlipidemia, unspecified Category: Medical Plan: [place] LDL goal less than 70 in patient with diabetes. Labs done 09/21/2024 showed LDL 42. Continue rosuvastatin. Plan Time spent on chart review, documentation, interview and assessment Coding Level of Care Code Est Pt Level 4 (67597) Complex EM visit Add On G2211 Diagnoses Chest discomfort R07.89 Essential hypertension I10 Hypertension type: essential hypertension PAF (paroxysmal atrial fibrillation) I48.0 Hyperlipidemia LDL goal <70 E78.5 Time Spent (min) 36
--- OUTSIDE RECORDS SUMMARY | 2025-03-25 14:53 | XMS_ITS | Encounter Summary ---
Author Organization [facility] Address [address] [place] [address] Phone Care Team Providers Care Occupational Therapist'S Assistant Name Role Phone Pam Wills MD Primary Care Provider [phone] Encounter Details Date Type Department Care Team (Late Contact Info) Description 03/10/2025 Documentation Only [facility] [address] [place] [address] [place], [place] [address] [place] [address] Social History Tobacco Use Types Packs/Day Years Used Date Smoking Tobacco: Never Assessed Alcohol Use Standard Drinks/Week Comments Never 0 (1 standard drink = 0.6 oz pur e alcohol) Comments Unknown Sex and Gender Information Value Date Recorded Sex Assigned at Not on file Legal Sex Female 11:15 AM EDT Gender Identity Not on file Sexual Orientation Not on file documented as of this encounter Plan of Treatment Upcoming Encounters Date Type Department Care Team (Late st Contact Info) Description 07/04/2025 3:30 PM EST Office Visit [facility] [address] [place] [address] Rufus Caal [address] [place] [address] documented as of this encounter Visit Diagnoses Not on filedocumented in this encounter Care Teams Occupational Therapist'S Assistant Relationship Specialty Start Date End Date Pam Wills MD [address] [place], [place] PCP - General Internal Medicine 05/11/21 documented as of this encounter
--- OUTSIDE RECORDS SUMMARY | 2025-03-25 14:54 | XMS_ITS | Clinical Summary ---
Author Organization 175 [facility] Address [address] [place] [address] Phone Care Team Providers Care Rn Office Name Role Phone Pam Montoya MD Primary Care Provider [phone] Allergies No known active allergies Medications magnesium [...] (two) times a day. 1 each 10/22/2024 10/23/19 26 Active albuterol HFA (PROAIR [...] 1 (one) time each day. 10/16/2024 Active metoprolol succinate (TOPROL-XL) 200 mg 24 hr tablet Take 0.5 tablets (100 mg total) by mouth daily. Active metoprolol tartrate (LOPRESSOR) 100 mg tablet Take 1 tablet (100 mg total) by mouth. Active albuterol HFA (PROAIR HFA ; PROVENTIL HFA ; VENTOLIN HFA) 90 mcg/actuation inhaler Inhale 1-2 puffs by mouth every 4 (four) hours if needed for wheezing. 6.7 g 01/31/2025 Active isosorbide mononitrate (IMDUR) 60 mg 24 hr tablet Take 2 tablets (120 mg total) by mouth 1 (one) time each day. Do not crush or chew. 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 Govea on November 2024 Diabetes mellitus type 2 wit h neurological manifestations ([facility] V24, [facility] V28) 05/03/2017 Hyperlipidemia 05/03/2017 Hypertension 05/03/2017 Allergic rhinitis 04/25/2017 Asthma-COPD overlap syndrome ([facility] V24, [facility] V28) 04/25/2017 Overview (04/03/2024): Last [...] renal failure type ([facility] V24, [facility] V28) 09/04/2024 09/06/2024 Encounters Date Type Department Care Team Description 03/13/2025 4:52 PM EDT - 03/13/2025 9:14 PM EDT Emergency [facility] Emergency [address] [place] [phone] Ruth Alford MD Other chest pain (Primary Dx) Discharge Disposition: Home or Self Care 02/12/2025 12:14 AM EDT - 02/12/2025 2:52 AM EDT Emergency [facility] Emergency [address] [place] [phone] Ruth Alford MD Hypertensive urgency (Primary Dx); Uncontrolled hypertension; Feeling unwell; Lightheadedness; Nonintractable episodic headache, unspecified headache type Discharge Disposition: Home or Self Care 01/31/2025 2:42 AM EDT - 01/31/2025 5:32 AM EDT Emergency [facility] Emergency [address] [place] [phone] Severo Cha MD COVID (Primary [...] Sign Reading Time Taken Comments Blood Pressure 153/63 03/13/2025 8:46 PM EDT Pulse 65 03/13/2025 8:46 PM EDT Temperature 36.7 C (98.1 F) 03/13/2025 8:46 PM EDT Respiratory Rate 16 03/13/2025 8:46 PM EDT Oxygen Saturation 97% 03/13/2025 8:46 PM EDT Inhaled Oxygen Concentration - - Weight 59 kg (130 lb) 03/13/2025 3:33 PM EDT Height 157.5 cm (5' 2 ) 03/13/2025 3:33 PM EDT Body Mass Index 23.78 03/13/2025 3:33 PM EDT Plan of Treatment Upcoming Encounters Date Type Department Care Team (Late st Contact Info) Description 05/08/2025 10:45 AM EDT Office Visit Pulmonolgy - [address] [phone] Fco Parsons MD [address] [place] [phone] 06/17/2025 2:00 PM EST Office Visit Infectious Disease - [place] [address] [phone] Natalie Govea MD [address] [place] [phone] Health Maintenance Due Date Last Done Comments [...] Annual Urine Albumin-Creatinine Ratio (uACR) 07/09/2022 06/05/2019 Breast Cancer Screening 04/04/2024 07/11/20 19, 07/01/2019, 06/28/2018 Cholesterol Screening (Lipid Panel) 06/05/2024 06/05/2019 Depression Screening 07/24/2024 Diabetes: Blood Sugar Control Test (HGBA1C) 03/04/2025 09/04/2024, 06/05/2019, 06/05/2019 COVID-19 Vaccine ( season) 2025 Influenza Vaccine (#1) 2025 05/03/2017, 2014 Falls Risk Assessment 09/06/2025 09/06/2024 Diabetes: Annual GFR (Glomerular Filtration Rate) 03/13/2026 03/13/2025, 02/11/2025, 01/31/2025, Additional history exists Hypertension/CHF/CAD Annual BMP Blood Test 03/13/2026 03/13/2025, 02/11/2025, 01/31/2025, Additional history exists Pneumococcal Vaccine: 50+ Years [...] Priority Date/Time Associated Diagnosis Comments ECG ANNOTATED 03/14/2025 TROPONIN I HIGH SENSITIVITY Timed 03/13/2025 6:54 PM EDT ECG 12-LEAD STAT 03/13/2025 6:52 PM EDT RESPIRATORY VIRUS PANEL MOLECULAR STUDY STAT 03/13/2025 6:[address] HEAD WO CONTRAST STAT 03/13/2025 6 :11 PM EDT XR CHEST 2 VIEWS STAT 03/13/2025 6:03 PM EDT CBC WITH AUTO DIFFERENTIAL STAT 03/13/2025 4:44 PM EDT B-TYPE NATRIURETIC PEPTIDE STAT 03/13/2025 4:44 PM EDT MAGNESIUM STAT 03/13/2025 4:44 PM EDT LIPASE STAT 03/13/2025 4:44 PM EDT COMPREHENSIVE METABOLIC PANEL STAT 03/13/2025 4:44 PM EDT CBC AND DIFFERENTIAL STAT 03/13/2025 4:44 PM EDT TROPONIN I HIGH SENSITIVITY Timed 03/13/2025 4:44 PM EDT ECG 12-LEAD STAT 03/13/2025 3:34 PM EDT XR CHEST 2 VIEWS STAT 02/12/2025 1:27 [...] Relevant to Health Maintenance Results * ECG-Annotated (03/14/2025) Only the most recent of2 resultswithin the time period is included. us Provider Onbase MD ECG ORDERABLES Final Result * Troponin I high sensitivity (03/13/2025 6:54 PM EDT) Only the most recent of3 resultswithin the time period is included. [facility] High Sensitivity Troponin I 6 <=54 ng/L LAB CHEMISTRY METHOD 03/13/2025 7:49 PM EDT [facility] Blood Venous blood specimen / Unknown Venipuncture / Unknown 03/13/2025 6:54 PM EDT 03/13/2025 7:10 PM EDT Narrative [facility] - 03/13/2025 7:49 PM EDT High levels of biotin in samples may falsely decrease hsTroponin values. Use caution when interpreting hsTroponin results in patients taking biotin who exhibit renal impairment (eGFR <60) or in patients taking more than 20 mg/day of biotin. Jaylon Caal MD LAB BLOOD ORDERABLES Final Result [facility] [address] [place] [address], * ECG 12 lead (03/13/2025 6:52 PM EDT) Only the most recent of3 resultswithin the time period is included. [facility] Ventricular Rate ECG 69 BPM GEMUSE Atrial Rate 69 BPM GEMUSE P-R Interval 184 ms GEMUSE QRS Duration 122 ms GEMUSE Q-T Interval 396 ms GEMUSE QTc 424 ms GEMUSE P Wave [place] 76 degrees GEMUSE R [place] 42 degrees GEMUSE T [place] 56 degrees GEMUSE ECG Interpretation Normal sinus rhythm Right bundle branch block Abnormal ECG When compared with ECG of 13-MAR-2025 15:34, (unconfirmed) No significant change was found Confirmed by FALGUNI REDDY ([id number]) on 03/13/2025 11:12:58 PM GEMUSE 03/13/2025 6:52 PM EDT 03/13/2025 11:12 PM EDT us Jaylon Caal MD ECG ORDERABLES Final Resul t GEMUSE * Respiratory virus panel molecular study (03/13/2025 6:41 PM EDT) Only the most recent of2 resultswithin the time period is included. Pathologist [facility] Adenovirus Detection by PCR Not Detected Not Detected LAB MICROBIOLOGY METHOD 03/13/2025 7:40 PM EDT [facility] Influenza A PCR Not Detected Not Detected LAB MICROBIOLOGY METHOD 03/13/2025 7:40 PM EDT [facility] Influenza B PCR Not Detected Not Detected LAB MICROBIOLOGY METHOD 03/13/2025 7:40 PM EDT [facility] Coronavirus 229E Not Detected Not Detected LAB MICROBIOLOGY METHOD 03/13/2025 7:40 PM EDT [facility] Coronavirus HKU1 Not Detected Not Detected LAB MICROBIOLOGY METHOD 03/13/2025 7:40 PM EDT [facility] Coronavirus OC43 Not Detected Not Detected LAB MICROBIOLOGY METHOD 03/13/2025 7:40 PM EDT [facility] Coronavirus NL63 Not Detected Not Detected LAB MICROBIOLOGY METHOD 03/13/2025 7:40 PM EDT [facility] Parainfluenza Virus 1 Not Detected Not Detected LAB MICROBIOLOGY METHOD 03/13/2025 7:40 PM EDT [facility] Parainfluenza Virus 2 Not Detected Not Detected LAB MICROBIOLOGY METHOD 03/13/2025 7:40 PM EDT [facility] Parainfluenza Virus 3 Not Detected Not Detected LAB MICROBIOLOGY METHOD 03/13/2025 7:40 PM EDT [facility] Parainfluenza Virus 4 Not Detected Not Detected LAB MICROBIOLOGY METHOD 03/13/2025 7:40 PM EDT [facility] RSV PCR Not Detected Not Detected LAB MICROBIOLOGY METHOD 03/13/2025 7:40 PM EDT [facility] Human Metapneumovirus A and B Not Detected Not Detected LAB MICROBIOLOGY METHOD 03/13/2025 7:40 PM EDT [facility] Rhinovirus/Entero virus Not Detected Not Detected LAB MICROBIOLOGY METHOD 03/13/2025 7:40 PM EDT [facility] Bordetella pertussis Not Detected Not Detected LAB MICROBIOLOGY METHOD 03/13/2025 7:40 PM EDT [facility] Bordetella parapertussis Not Detected Not Detected LAB MICROBIOLOGY METHOD 03/13/2025 7:40 PM EDT [facility] Mycoplasma pneumo by PCR Not Detected Not Detected LAB MICROBIOLOGY METHOD 03/13/2025 7:40 PM EDT [facility] Chlamydia pneumoniae Not Detected Not Detected LAB MICROBIOLOGY METHOD 03/13/2025 7:40 PM EDT [facility] SARS COV-2 Not Detected Not Detected LAB MICROBIOLOGY METHOD 03/13/2025 7:40 PM EDT [facility] Swab Both anterior nares / Unknown Non-blood Collection / Unknown 03/13/2025 6:41 PM EDT 03/13/2025 6:45 PM EDT Narrative [facility] - 03/13/2025 7:40 PM EDT Testing was performed using the [facility] Respiratory Pathogen PCR Assay. All results must [...] are below the limit of detection. us Alondra Shrestha NP LAB MICROBIOLOGY - GENERAL ORDLina MEANS Final Result [facility] [address] [place] [address], * CT Head wo Contrast (03/13/2025 6:11 PM EDT) Only the most recent of2 resultswithin the time period is included. Anatomical Region Laterality Modality Head and Neck Computed Tomogra phy 03/13/2025 6:25 PM EDT Impressions 03/13/2025 6:25 PM EDT 1. No acute intracranial findings. This document has been electronically signed by: Hollis Roberts MD on 03/13/2025 18:25:48 Narrative 03/13/2025 6:25 PM EDT INDICATION: Dizziness, non-specific CT head without contrast Comparison: CT - CT HEAD WO CONTRAST - 02/11/25 23:57 EDT Findings: No intra-axial mass, midline shift, hydrocephalus, or acute hemorrhage. Mild age-appropriate cerebral atrophy. The visualized paranasal sinuses and mastoid air cells are normal. The orbits are within normal limits. There is no acute fracture. Procedure Note Hollis Roberts MD - 03/13/2025 INDICATION: Dizziness, non-specific CT head without contrast Comparison: CT - CT HEAD WO CONTRAST - 02/11/25 23:57 EDT Findings: No intra-axial mass, midline shift, hydrocephalus, or acute hemorrhage. Mild age-appropriate cerebral atrophy. The visualized paranasal sinuses and mastoid air cells are normal. The orbits are within normal limits. There is no acute fracture. IMPRESSION: 1. No acute intracranial findings. This document has been electronically signed by: Hollis Roberts MD on 03/13/2025 18:25:48 Alondra Shrestha NP IMG CT PROCEDURES Final Result * XR Chest 2 Views (03/13/2025 6:03 PM EDT) Only the most recent of3 resultswithin the time period is included. Anatomical Region Laterality Modality Body Radiographic Rosey ging 03/14/2025 9:04 AM EDT Impressions 03/14/2025 9:05 AM EDT No acute pulmonary disease. Findings as above consistent with COPD. No change since 02/12/2025. Code 34657 -------- FINAL REPORT -------- Dictated By: Jonah Hooker Dictated Date: 03/14/2025 09:04 ET Assigned Physician: Jonah Hooker Reviewed and Electronically Signed By: Jonah Hooker Signed Date: 03/14/2025 09:05 ET Workstation ID: [id number] Transcribed By: Self Edit Transcribed Date: 03/14/2025 09:04 ET Narrative 03/14/2025 9:05 AM EDT HISTORY: The patient is an 84-year-old female with chest pain. FINDINGS: PA and lateral radiographs of the chest demonstrate degenerative changes and moderate kyphosis of the thoracic spine as also seen on the prior study performed 02/12/2025. 2 surgical anchors are again noted in the right humeral head. The cardiac silhouette is within normal limits. The aortic knob is calcified. The lungs are again seen to be hyperinflated with flattening of the diaphragm consistent with chronic obstructive pulmonary disease. There is no consolidation, mass, pulmonary vascular congestion, or pleural effusion. Procedure Note Jonah Hooker MD - 03/14/2025 HISTORY: The patient is an 84-year-old female with chest pain. FINDINGS: PA and lateral radiographs of the chest demonstrate degenerativechanges and moderate kyphosis of the thoracic spine as also seen on theprior study performed 02/12/2025. 2 surgical anchors are again noted in theright humeral head. The cardiac silhouette is within normal limits. Theaortic knob is calcified. The lungs are again seen to be hyperinflatedwith flattening of the diaphragm consistent with chronic obstructivepulmonary disease. There is no consolidation, mass, pulmonary vascularcongestion, or pleural effusion. IMPRESSION: No acute pulmonary disease. Findings as above consistent with COPD. Nochange since 02/12/2025. Code 33823 -------- FINAL REPORT -------- Dictated By: Jonah Hooker Dictated Date: 03/14/2025 09:04 ET Assigned Physician: Jonah Hooker Reviewed and Electronically Signed By: Jonah Hooker Signed Date: 03/14/2025 09:05 ET Workstation ID: [id number] Transcribed By: Self Edit Transcribed Date: 03/14/2025 09:04 ET us Jaylon Caal MD IMG XR PROCEDURES Final Res ult * (ABNORMAL) CBC auto differential (03/13/2025 4:44 PM EDT) Only the most recent of2 resultswithin the time period is included. WBC 11.2(H) 4.8 - 10.8 K/mcL LAB HEMETOLOGY METHOD 03/13/2025 5:32 PM EDT [facility] RBC 4.30 3.80 - 4.80 M/mcL LAB HEMETOLOGY METHOD 03/13/2025 5:32 PM EDT [facility] Hemoglobin 11.1(L) 11.5 - 16.0 g/dL LAB HEMETOLOGY METHOD 03/13/2025 5:[facility] Hematocrit 34.5(L) 35.0 - 47.0 % LAB HEMETOLOGY METHOD 03/13/2025 5:32 PM [facility] MCV 80.6 79.0 - 98.0 FL LAB HEMETOLOGY METHOD 03/13/2025 5:32 PM EDT [facility] MCH 25.9(L) 27.0 - 32.0 pcg LAB HEMETOLOGY METHOD 03/13/2025 5:32 PM EDT [facility] MCHC 32.2 32.0 - 37.0 g/dL LAB HEMETOLOGY METHOD 03/13/2025 5:32 PM EDT [facility] RDW 13.1 11.0 - 15.0 % LAB HEMETOLOGY METHOD 03/13/2025 5:32 PM EDT [facility] Platelets 296 130 - 400 K/mcL LAB HEMETOLOGY METHOD 03/13/2025 5:32 PM EDT [facility] MPV 9.5 7.0 - 11.0 FL LAB HEMETOLOGY METHOD 03/13/2025 5:32 PM EDT [facility] NRBC 0.0 <1.0 % LAB HEMETOLOGY METHOD 03/13/2025 5:32 PM EDT [facility] NRBC Absolute 0.00 <0.10 K/mcL LAB HEMETOLOGY METHOD 03/13/2025 5:32 PM EDT [facility] Neutrophils Relative 72.1 % LAB HEMETOLOGY METHOD 03/13/2025 5:32 PM EDT [facility] Lymphocytes Relative 20.0 % LAB HEMETOLOGY METHOD 03/13/2025 5:32 PM EDT [facility] Monocytes Relative 6.3 % LAB HEMETOLOGY METHOD 03/13/2025 5:32 PM EDT [facility] Eosinophils Relative 0.7 % LAB HEMETOLOGY METHOD 03/13/2025 5:32 PM [facility] Basophils Relative 0.5 % LAB HEMETOLOGY METHOD 03/13/2025 5:32 PM [facility] Immature Granulocytes Relative 0.4 % LAB HEMETOLOGY METHOD 03/13/2025 5:32 PM [facility] Neutrophils Absolute 8.07(H) 1.50 - 7.00 K/mcL LAB HEMETOLOGY METHOD 03/13/2025 5:32 PM [facility] Lymphocytes Absolute 2.24 1.00 - 5.00 K/mcL LAB HEMETOLOGY METHOD 03/13/2025 5:32 PM [facility] Monocytes Absolute 0.71 0.20 - 1.00 K/mcL LAB HEMETOLOGY METHOD 03/13/2025 5:32 PM EDT [facility] Eosinophils Absolute 0.08 0.00 - 0.50 K/mcL LAB HEMETOLOGY METHOD 03/13/2025 5:32 PM [facility] Basophils Absolute 0.06 0.00 - 0.20 K/mcL LAB HEMETOLOGY METHOD 03/13/2025 5:32 PM EDT [facility] Immature Granulocytes Absolute 0.05(H) 0.00 - 0.03 K/mcL LAB HEMETOLOGY METHOD 03/13/2025 5:32 PM EDT [facility] Blood Venous blood specimen / Unknown Venipuncture / Unknown 03/13/2025 4:44 PM EDT 03/13/2025 5:26 PM EDT us Jaylon Caal MD LAB BLOOD ORDERABLES Final Result Performing Organization Address [facility] Co de Phone Number [facility] [address] [place] [address], [place] [phone] * B-type natriuretic peptide (03/13/2025 4:44 PM EDT) Only the most recent of2 resultswithin the time period is included. BNP 77 <=100 pcg/mL LAB CHEMISTRY METHOD 03/13/2025 6:11 PM EDT [facility] Blood Venous blood specimen / Unknown Venipuncture / Unknown 03/13/2025 4:44 PM EDT 03/13/2025 5:26 PM EDT us Jaylon Caal MD LAB BLOOD ORDERABLES Final Result Performing Organization Address [facility] de Phone Number [facility] [address] [place] [address], [place] [phone] * (ABNORMAL) Magnesium (03/13/2025 4:44 PM EDT) Magnesium 1.7(L) 1.9 - 2.6 mg/dL LAB CHEMISTRY METHOD 03/13/2025 5:58 PM EDT [facility] Blood Venous blood specimen / Unknown Venipuncture / Unknown 03/13/2025 4:44 PM EDT 03/13/2025 5:26 PM EDT us Jaylon Caal MD LAB BLOOD ORDERABLES Final Result Performing Organization Address [facility]/ZIP Co de Phone Number [facility] [address] [place] [address], [place] [phone] * Lipase (03/13/2025 4:44 PM EDT) Pathologist [facility] Lipase 70 13 - 75 unit/L LAB CHEMISTRY METHOD 03/13/2025 5:58 PM EDT [facility] Blood Venous blood specimen / Unknown Venipuncture / Unknown 03/13/2025 4:44 PM EDT 03/13/2025 5:26 PM EDT Jaylon Caal MD LAB BLOOD ORDERABLES Final Result Performing Organization Address [facility] Co de Phone Number [facility] [address] [place] [address], [place] [phone] * (ABNORMAL) Comprehensive metabolic panel (03/13/2025 4:44 PM EDT) Only the most recent of2 resultswithin the time period is included. Pathologist [facility] Sodium 139 133 - 145 mmol/L LAB CHEMISTRY METHOD 03/13/2025 5:58 PM [facility] Potassium 5.1 3.5 - 5.5 mmol/L LAB CHEMISTRY METHOD 03/13/2025 5:58 PM [facility] Chloride 105 96 - 110 mmol/L LAB CHEMISTRY METHOD 03/13/2025 5:58 PM [facility] CO2 28 21 - 32 mmol/L LAB CHEMISTRY METHOD 03/13/2025 5:58 PM [facility] Anion Gap 6 3 - 11 LAB CHEMISTRY METHOD 03/13/2025 5:58 PM [facility] Glucose 115(H) 70 - 100 mg/dL LAB CHEMISTRY METHOD 03/13/2025 5:58 PM [facility] BUN 19 5 - 25 mg/dL LAB CHEMISTRY METHOD 03/13/2025 5:58 PM [facility] Creatinine 1.20(H) 0.50 - 1.10 mg/dL LAB CHEMISTRY METHOD 03/13/2025 5:58 PM [facility] eGFR 44(L) >=60 mL/min/1. 73m2 LAB CHEMISTRY METHOD 03/13/2025 5:58 PM [facility] Comment:Calculation based on the Chronic Kidney Disease Epidemiology Collaboration (CKD-EPI) equation refit without adjustment for race. BUN/Creatinine Ratio 15.8 LAB CHEMISTRY METHOD 03/13/2025 5:58 PM [facility] Calcium 9.9 8.5 - 10.5 mg/dL LAB CHEMISTRY METHOD 03/13/2025 5:58 PM [facility] AST (SGOT) 10 10 - 42 unit/L LAB CHEMISTRY METHOD 03/13/2025 5:58 PM [facility] ALT (SGPT) 19 10 - 60 unit/L LAB CHEMISTRY METHOD 03/13/2025 5:58 PM [facility] Alkaline Phosphatase 81 42 - 121 unit/L LAB CHEMISTRY METHOD 03/13/2025 5:58 PM [facility] Total Protein 7.3 6.0 - 8.0 g/dL LAB CHEMISTRY METHOD 03/13/2025 5:58 PM [facility] Albumin 4.1 3.2 - 5.0 g/dL LAB CHEMISTRY METHOD 03/13/2025 5:58 PM [facility] Total Bilirubin 0.4 0.0 - 1.4 mg/dL LAB CHEMISTRY METHOD 03/13/2025 5:58 PM [facility] Blood Venous blood specimen / Unknown Venipuncture / Unknown 03/13/2025 4:44 PM EDT 03/13/2025 5:26 PM EDT us Jaylon Caal MD LAB BLOOD ORDERABLES Final Result Performing Organization Address [facility]/ZIP Co de Phone Number [facility] [address] [place] [address], * D-dimer, quantitative (02/11/2025 11:13 PM EDT) Pathologist [facility] D-Dimer, Quant (D-DU) <150 <=230 ng/mL DDU LAB COAGULATION METHOD 02/11/2025 11:41 PM EDT [facility] Blood Venous blood specimen / Unknown Venipuncture / Unknown 02/11/2025 11:13 PM EDT 02/11/2025 11:20 PM EDT [facility] - 02/11/2025 11:41 PM EDT D-Dimer <230 ng/mL (D-Dimer units) is the threshold for exclusion of DVT/PE. D-Dimer may be elevated in: Critically ill, severely infected, trauma patients, DIC, acute CVA, acute [place], unstable angina, AF, old age, , and smoking. D-Dimer may be decreased with: Initiation of heparin therapy and oral anticoagulants. Joanna GARCIA LAB BLOOD ORDERABLES Fin al Result Performing Organization Address [facility] Co de Phone Number [facility] [address] [place] [address], * (ABNORMAL) CBC (02/11/2025 11:13 PM EDT) Pathologist [facility] WBC 7.8 4.8 - 10.8 K/mcL LAB HEMETOLOGY METHOD 02/11/2025 11:24 PM EDT [facility] RBC 4.30 3.80 - 4.80 M/mcL LAB HEMETOLOGY METHOD 02/11/2025 11:24 PM EDT [facility] Hemoglobin 11.0(L) 11.5 - 16.0 g/dL LAB HEMETOLOGY METHOD 02/11/2025 11:24 PM EDT [facility] Hematocrit 34.8(L) 35.0 - 47.0 % LAB HEMETOLOGY METHOD 02/11/2025 11:24 PM EDT [facility] MCV 81.3 79.0 - 98.0 FL LAB HEMETOLOGY METHOD 02/11/2025 11:24 PM EDT [facility] MCH 25.7(L) 27.0 - 32.0 pcg LAB HEMETOLOGY METHOD 02/11/2025 11:24 PM EDT [facility] MCHC 31.6(L) 32.0 - 37.0 g/dL LAB HEMETOLOGY METHOD 02/11/2025 11:24 PM EDT [facility] RDW 13.2 11.0 - 15.0 % LAB HEMETOLOGY METHOD 02/11/2025 11:24 PM EDT [facility] Platelets 293 130 - 400 K/mcL LAB HEMETOLOGY METHOD 02/11/2025 11:24 PM EDT [facility] MPV 9.3 7.0 - 11.0 FL LAB HEMETOLOGY METHOD 02/11/2025 11:24 PM EDT [facility] NRBC 0.0 <1.0 % LAB HEMETOLOGY METHOD 02/11/2025 11:24 PM EDT [facility] NRBC Absolute 0.00 <0.10 K/mcL LAB HEMETOLOGY METHOD 02/11/2025 11:24 PM EDT [facility] Blood Venous blood specimen / Unknown Venipuncture / Unknown 02/11/2025 11:13 PM EDT 02/11/2025 11:20 PM EDT us Joanna GARCIA LAB BLOOD ORDERABLES Fin al Result [facility] [address] [place] [address], [place] [phone] * (ABNORMAL) Blood gas, venous (02/11/2025 11:13 PM EDT) pH, Liam 7.33 7.32 - 7.42 pH 02/11/2025 11:24 PM EDT [facility] pCO2, Liam 53(H) 41 - 51 mmHg 02/11/2025 11:24 PM EDT [facility] pO2, Liam 35 25 - 40 mmHg 02/11/2025 11:24 PM EDT [facility] HCO3, Venous 24.9 22.0 - 26.0 mmol/L 02/11/2025 11:24 PM EDT [facility] O2 Sat, Liam 59.7 % 02/11/2025 11:24 PM EDT [facility] Base Excess, Liam 1.2 -2.0 - 2.0 mmol/L 02/11/2025 11:24 PM EDT [facility] Blood Venous blood specimen / Unknown Venipuncture / Unknown 02/11/2025 11:13 PM EDT 02/11/2025 11:19 PM EDT Joanna GARCIA LAB BLOOD ORDERABLES Fin al Result [facility] [address] [place] [address], * Rapid strep A screen (01/31/2025 4:10 AM EDT) Strep A Ag Negative Negative, Invalid 01/31/2025 5:29 AM EDT [facility] Comment:Refer to Throat Cult ure. Swab Structure of anterior portion of neck / Unknown Non-blood Collection / Unknown 01/31/2025 4:10 AM EDT 01/31/2025 4:36 AM EDT us Severo Deslouches MD LAB MICROBIOLOGY - GENERAL ORDERABLES Final Result Performing Organization Address City/[facility]/ZIP Co de Phone Number [facility] [address] [place] [address], [place] [phone] * Culture throat (01/31/2025 4:10 AM EDT) Culture, Throat No pathogens isolated. 02/02/2025 9:10 AM EDT [facility] Swab Structure of anterior portion of neck / Unknown Non-blood Collection / Unknown 01/31/2025 4:10 AM EDT 01/31/2025 4:36 AM EDT us Severo Cha MD LAB MICROBIOLOGY - GENERAL ORDERABLES Final Result Performing Organization Address [facility]/ZIP Co de Phone Number [facility] [address] [place] [address], [place] [phone] * (ABNORMAL) Basic metabolic panel (01/31/2025 12:33 AM EDT) [facility] Sodium 139 133 - 145 mmol/L LAB CHEMISTRY METHOD 01/31/2025 1:27 AM [facility] Potassium 4.5 3.5 - 5.5 mmol/L LAB CHEMISTRY METHOD 01/31/2025 1:27 AM [facility] Chloride 104 96 - 110 mmol/L LAB CHEMISTRY METHOD 01/31/2025 1:27 AM [facility] CO2 27 21 - 32 mmol/L LAB CHEMISTRY METHOD 01/31/2025 1:27 AM [facility] Anion Gap 8 3 - 11 LAB CHEMISTRY METHOD 01/31/2025 1:27 AM [facility] Glucose 104(H) 70 - 100 mg/dL LAB CHEMISTRY METHOD 01/31/2025 1:27 AM [facility] BUN 24 5 - 25 mg/dL LAB CHEMISTRY METHOD 01/31/2025 1:27 AM EDT [facility] Creatinine 1.09 0.50 - 1.10 mg/dL LAB CHEMISTRY METHOD 01/31/2025 1:27 AM EDT [facility] eGFR 50(L) >=60 mL/min/1. 73m2 LAB CHEMISTRY METHOD 01/31/2025 1:27 AM EDT [facility] Comment:Calculation based on the Chronic Kidney Disease Epidemiology Collaboration (CKD-EPI) equation refit without adjustment for race. BUN/Creatinine Ratio 22.0 LAB CHEMISTRY METHOD 01/31/2025 1:27 AM EDT [facility] Calcium 9.0 8.5 - 10.5 mg/dL LAB CHEMISTRY METHOD 01/31/2025 1:27 AM EDT [facility] Blood Venous blood specimen / Unknown Venipuncture / Unknown 01/31/2025 12:33 AM EDT 01/31/2025 12:55 AM EDT us Severo Cha MD LAB BLOOD ORDERABLES Final Result [facility] [address] [place] [address], * (ABNORMAL) Hemoglobin A1c (09/04/2024 9:10 AM EST) Hemoglobin A1C 8.5(H) <6.5 % LAB CHEMISTRY METHOD 09/04/2024 5:11 PM EST [facility] Mean Bld Glu Estim. 197 mg/dL LAB CHEMISTRY METHOD 09/04/2024 5:11 PM EST [facility] Blood Venous blood specimen / Unknown Venipuncture / Unknown 09/04/2024 9:10 AM EST 09/04/2024 9:26 AM EST Laron Maldonado MD LAB BLOOD ORDERABLES Final Res ult [facility] [address] [place] [address], * DOMINIC SCREENING DIGITAL (07/01/2019 4:51 PM EST) Anatomical Region Laterality Modality Mammography 07/01/2019 12:3 0 PM EST Narrative 07/01/2019 4:51 PM EST [facility] Diagnostic Imaging Department [address] [place] [address] Patient: KRISTIN VALDIVIA D.O.B./Age/Sex: 1940 - 78 - F Unit#: [id number] Location/Status: [facility] CLI Mnemonic[facility] Order[facility] Physician: GRISELDA VELAZQUEZ MD [facility] Screening Digital - 07/01/19 - [id number] INDICATION: SCREENING COMPARISON: No prior studies are available for comparison. TECHNIQUE: CC and MLO views of the breasts were obtained, using full field digital mammography with 3D tomosynthesis views in the MLO projection. Computer aided detection with the WeDidIt 7.2-H was employed. Patient reports 2 sisters [...] a target date for the next mammogram. [id number] / [id number]) , [id number] Dictating Physician: BRODY SMITH MD Electronically Signed by: BRODY SMITH MD Dic Date/Time: 07/01/19 1645 Sign date/Time: 07/01/19 1651 Procedure Note Brody Smith - 07/13/2022 [facility] Diagnostic Imaging Department [address] [place] [id number] Patient: MERI MCGREGORKRISTIN /Age/Sex: 1940 - 78 - F Unit#: [id number] Location/Status: [facility] Mnemonic/Ordering Site: [facility] Ordering Physician: GRISELDA VELAZQUEZ MD Dominic Screening Digital - 07/01/19 - 1316 INDICATION: SCREENING COMPARISON: No prior studies are available for comparison. TECHNIQUE: CC and MLO views of the breasts were obtained, using full field digital mammography with 3D tomosynthesis views in the MLO projection. Computer aided detection with the WeDidIt 7.2-H was employed. Patient reports 2 sisters [...] a target date for the next mammogram. 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 p Communication Liz Starr Daughter Health Care Agent Care Teams Rn Office Relationship Specialty Start Date End Date Pam Montoya MD [address] [facility] D/B/A: [facility] [place] [facility] PCP - General Internal Medicine 10/30/24
--- OUTSIDE RECORDS SUMMARY | 2025-03-25 14:54 | XMS_ITS | Clinical Summary ---
Author Organization [facility] Address [address] [place] [phone] Phone Care Team Providers Care Market Analyst Name Role Phone Pam Wills MD Primary Care Provider [phone] Allergies No known active allergies Medications Trulicity [...] MG tablet Take 70 mg by mouth 08/22/2024 Active Cholecalciferol (Vitamin D3) 1000 units capsule Take by mouth Active losartan (COZAAR) 25 MG tablet Take 50 mg by mouth 1 (one) time each day Active Active Problems Problem Noted Date Diagnosed Date Proteinuria 05/11/2021 Stage 3a chronic kidney disease 05/11/2021 Type 2 diabetes mellitus wit h diabetic chronic kidney disease 05/11/2021 Renal osteodystrophy 05/11/2021 Hyperlipidemia 05/03/2017 Hypertension 05/03/2017 Type 2 diabetes mellitus wit h other diabetic neurological complication 05/03/2017 Encounters Date Type Department Care Team Description 03/10/2025 Documentation Only [facility] [address] [place] [address] Adrian Tsang MA 02/20/2025 1:30 PM EDT Office Visit [facility] [address] [phone] Jaylon Barreto MD Stage 3a chronic kidney disease (HCC) (Primary Dx); Type 2 diabetes mellitus with diabetic chronic kidney disease (HCC); Renal osteodystrophy 02/12/2025 Office Communication [facility] [address] [phone] Monica Sagastume from Last 3 Months Immunizations [...] Visit [facility] [place], [address] [place] [address] Rufus Caal, [address] [place] [phone] Health Maintenance Due Date Last Done Comments [...] Most Recently Relevant to Health Maintenance Insurance [facility] UHC Medicare [facility] Medicare Medicare Care Teams Market Analyst Relationship Specialty Start Date End Date Pam Wills MD [address] [place], [place] PCP - General Internal Medicine 05/11/21
--- OUTSIDE RECORDS SUMMARY | 2025-03-25 14:54 | XMS_ITS | Encounter Summary ---
Author Organization [facility] Address [address] [facility] [address] [place] [address] Phone Care Team Providers Care Medical Bill Processor Name Role Phone Pam Wills MD Primary Care Provider [phone] Encounter Details Date Type Department Care Team (Late Contact Info) Description 08/03/2021 Documentation Only [facility] [address] [facility] [address] [place] [phone] Jaylon Barreto MD [address] [facility] [address] [place] [phone] Social History Tobacco Use Types Packs/Day Years [...] Visit [facility] [place], [address] [place] [address] Rufus Caal, DO [address] [place] [address] documented as of this encounter Visit Diagnoses Not on filedocumented in this encounter Care Teams Medical Bill Processor Relationship Specialty Start Date End Date Pam Wills MD [address] [place], [place] PCP - General Internal Medicine 05/11/21 documented as of this encounter
--- OUTSIDE RECORDS SUMMARY | 2025-03-25 14:54 | XMS_ITS | Clinical Summary ---
Author Organization [facility] Address [address] [place] [address] Care Team Providers Care Tree Cutter Name Role Phone Pam Wills MD Primary [...] age to complete this topic Care Teams Tree Cutter Relationship Specialty Start Date End Date Pam Wills MD [address] , [address] [facility] D/B/A: [facility] [place]aga [address] PCP - General Internal Medicine 02/02/22
--- OUTSIDE RECORDS SUMMARY | 2025-03-25 14:54 | XMS_ITS | Encounter Summary ---
Author Organization [facility]. Address [address] [address] Phone Care Team Providers Care Child Custody Evaluator Name Role Phone Pam Wills MD Primary Care Provider [phone] Encounter Details Date Type Department Care Team (Late st Contact Info) Description 02/12/2025 Office Communication [facility] P. [address] [address] Monica Sagastume [address] [phone] Social History Tobacco Use Types Packs/Day Years [...] on file documented as of this encounter Miscellaneous Notes * Telephone Encounter - Jaylon Barreto MD - 02/20/2025 2:51 PM EDT Please call pateint and tell her for now when she sees us that she should remind us to ALWAYS use an interpretor Ask her to get repeat labs in 2-3 weeks and f/u with us in 4 weeks and to bring HBP machines again when she comes to see us She can see Nayely or me next visit --thx * Telephone Encounter - Jaylon Barreto MD - 02/12/2025 1:05 PM EDT Needs appt with me in 2-3 wks--in [facility] office--pls call and arrange--thx documented in this encounter Plan of Treatment Upcoming Encounters Date Type Department Care Team (Late st Contact Info) Description 07/04/2025 3:30 PM EST Office Visit [facility] [place], [address] [place] [address] Rufus Caal, [address] [place] [address] documented as of this encounter Visit Diagnoses Not on filedocumented in this encounter Care Teams Child Custody Evaluator Relationship Specialty Start Date End Date Pam Wills MD [address] [place], [place] PCP - General Internal Medicine 05/11/21 documented as of this encounter
== END 2025-03-25 14:55 | disposition home or self-care (01) ==
LOC: HO.HCS 13:38
PROVIDERS: PCP Internal Medicine; Visit Provider Nurse Practitioner Family
DX: R07.89 Other chest pain (principal); I10 Essential (primary) hypertension; I48.0 Paroxysmal atrial fibrillation; E78.5 Hyperlipidemia, unspecified
CPT/HCPCS: 99214; G2211

== ENCOUNTER → 2025-03-25 13:37 | Outpatient (BNVA) | payer MEDICARE, OTHER, MEDICAID, SELFPAY | PROVIDERS: PCP Internal Medicine; Visit Provider Nurse Practitioner Family | DX: I10 Essential (primary) hypertension (principal); I48.0 Paroxysmal atrial fibrillation; E78.5 Hyperlipidemia, unspecified; R79.89 Other specified abnormal findings of blood chemistry | CPT/HCPCS: 99212 ==

== ENCOUNTER 2025-04-08 15:23 | Outpatient (AMB) | payer MEDICARE, OTHER, MEDICAID, SELFPAY ==
--- NOTE | 2025-04-08 15:45 | A.OFFVIS_ITS ---
Vital Signs 04/08/25 15:46 Height 5 ft 3 in Weight 132 lb 4.438 oz BMI 23.4 BP 116/54 L Blood Pressure Location Rt brachial Position Sitting Pulse 58 Pulse Source Pulse Oximeter Pulse Oximetry (%) 96 Oxygen Delivery Method Room Air Intake Visit Reasons: T2DM Intake Note: Patient present today to follow up on Type 2 Diabetes Mellitus. Last Diabetic Eye exam: 06/2024 Last Podiatry Visit: Miller snot see a Clinical Education Manager Random Glucose: 117 mg/dL Hgb A1C: 7.5% 02/08/2025 Caseworker Required: Yes Caseworker Language: [employer] Supervisor Services: Caseworker Present Caseworker Name: JIM Burgess/STEPHEN MCKEON Information Interpreted: non-clinical & clinical Accompanied by: Daughter Allergies amlodipine Adverse Reaction (Intermediate, Verified 03/25/25 14:03) leg edema empagliflozin (From Jardiance) Adverse Reaction (Verified 03/25/25 14:03) vaginal candidiasis Medication List - Last Reconciled 04/08/25 by RADHA Harrell [adult diapers As directed] albuterol sulfate 90 mcg/actuation 2 puffs inhalation Q4-6H PRN 30 days alendronate 70 mg PO QWEEK apixaban (Eliquis) 5 mg PO BID 90 days [blood pressure daily monitoring As directed] blood sugar diagnostic (Accu-Chek Guide test strips) As directed 3 times per day blood-glucose meter (Accu-Chek Guide Me Glucose Meter) As directed cane As directed cholecalciferol (vitamin D3) 25 mcg PO DAILY 90 days commode (bedside commode) As directed dextrose (TRUEplus Glucose) 15 grams (32 mL) PO Q15M PRN dulaglutide (Trulicity) 1.5 mg (0.5 mL) subcut QWEEK 28 days fluticasone propion-salmeterol 100-50 mcg/dose (Wixela Inhub) 1 inh inhalation BID gabapentin 300 mg (3 x 100 mg) PO BEDTIME 30 days isosorbide mononitrate ER 60 mg PO DAILY 90 days lancets (Accu-Chek Softclix Lancets) As directed 3 times per day levalbuterol tartrate 45 mcg/actuation (Xopenex HFA) 2 puffs inhalation Q4-6H PRN losartan 50 mg PO DAILY 90 days magnesium oxide 400 mg PO DAILY 90 days metformin 1,000 mg PO BID 90 days metoprolol succinate ER 50 mg PO DAILY metoprolol succinate ER 100 mg PO DAILY 90 days omeprazole 20 mg PO DAILY 90 days [One touch Ultra Blue test strips Use 3 times a day] underpads (Certainty Underpads) Use 1 to 2 times a day walker with brakes and seat HPI Comments Details: 84-year-old female with a past medical history of COPD, hypertension, atrial fibrillation, asthma-COPD overlap, hyperlipidemia, CKD stage 3, osteoporosis, microalbuminuria, JONNY, coronary artery disease, hypertension and type 2 diabetes presents for diabetic management. She is followed by Dr. Devine for osteoporsis. She has a family history of type 2 diabetes (mother). Hemoglobin A1c 7.5% 02/08/2025. POC 117. Fasting sugars 109-159 per patient. She forgot her glucometer today. Current medications: Metformin 1000 mg twice daily, Trulicity 1.5 mg weekly Past medication: Jardiance discontinued due to vaginitis. Glipizide discontinued due to hypoglycemia. Trulicity was decreased from 3 to 1.5 mg weekly due to appetite suppression at the higher dose. Patient says she feels well on her current medications. Complications: Neuropathy and is on gabapentin and declines referral to Podiatry; nephropathy-CKD stage 3 and microalbuminuria. CAD and AFib followed by Cardiology. Anticoagulated on Eliquis. ROS: Constitutional: No unexplained weight loss, fever, chills, fatigue or night sweats. Respiratory: No shortness of breath Cardiovascular: No chest pain Gastrointestinal: No anorexia, nausea, vomiting or diarrhea. No abdominal pain or blood in stool. Genitourinary: No dysuria, hematuria, urinary frequency. Neurologic: Endorses neuropathy in her feet Physical exam: Constitutional: Alert, in no distress.. Neck: Supple, Full range of motion. No lymphadenopathy. No palpable thyroid masses. Respiratory: Clear to auscultation. Cardiovascular: S1 S2 regular. No murmurs. No carotid bruits. Feet: Bilateral varicosities. Warm and well perfused. No clubbing, cyanosis or edema. Intact DP pulse. Decreased vibratory sensation. Intact sensation to monofilament. No open wounds. [facility] Medical History (Updated 04/08/25 @ 16:39 by RADHA Harrell) Type 2 diabetes mellitus with diabetic neuropathy COPD (chronic obstructive pulmonary disease) Left shoulder pain Hyperlipidemia LDL goal <100 Abnormal SPEP Vitamin D deficiency Osteoporosis Age related osteoporosis Physical exam Hypomagnesemia Atrial fibrillation with rapid ventricular response Urinary incontinence Abnormal EKG Screening for osteoporosis Neuropathy Microalbuminuria JONNY (obstructive sleep apnea) Left shoulder pain Anemia GERD (gastroesophageal reflux disease) Coronary artery disease Hypertension Type 2 diabetes mellitus with hyperglycemia Surgical History History of surgery on arm Hx of dilation and curettage Hx of breast biopsy Family History Mother Diabetes mellitus Father CAD (coronary artery disease) Sister Lymphoma Breast cancer Brother Colon cancer Social History Household Members: Family Housing: House Are you a primary housekeeper caregiver to a significant other at home: No Do you presently have visiting nurse or other home services: Yes (insurance nurse) Alcohol intake: never Patient Tobacco Use Status: Never used Tobacco e-Cigarette/Vaping Use: Never Used Second Hand Smoke Exposure: No service: No Current occupational status: disabled Cognitive needs: No Hearing needs: No Vision needs: Yes Physical Exam Vital Signs: Last Vital Signs Pulse 58 04/08/25 15:46 BP 116/54 L 04/08/25 15:46 Pulse Ox 96 04/08/25 15:46 Oxygen Delivery Method Room Air 04/08/25 15:46 BMI result Body Mass Index 23.4 Results Reviewed Results Reviewed: Laboratory Last Values Glucose (Clinic) 117 mg/dL (60-115) H 04/08/25 15:52 Laboratory Tests 02/08/25 02/08/25 08:22 08:26 Creatinine 1.14 Estimated GFR 45 Hemoglobin A1c % 7.5 H AST 16 ALT 15 Triglycerides 89 Cholesterol 93 LDL Cholesterol, Calc 33 HDL Cholesterol 43 Vitamin B12 477 Urine Creatinine 79.17 Urine Microalbumin 157.0 Microalb/Creat Ratio 198.3 H Assessment & Plan Assessment & Plan (1) Type 2 diabetes mellitus with diabetic neuropathy: Code(s): E11.40 - Type 2 diabetes mellitus with diabetic neuropathy, unspecified Category: Medical Plan: In summary this is an 84-year-old female with type 2 diabetes. Reasonable target A1c is 7-7.5% given age and comorbidities. Continue Trulicity 1.5 mg weekly and metformin 1000 mg twice daily. Diabetic diet reviewed. She declines referral to Podiatry. She declines CGM. Reminded to bring glucometer to all appointments. Reviewed treatment of hypoglycemia. True +glucose packets sent to pharmacy. (2) Essential hypertension: Code(s): I10 - Essential (primary) hypertension Category: Medical Plan: Controlled. Continue current regimen. (3) Hyperlipidemia LDL goal <70: Code(s): E78.5 - Hyperlipidemia, unspecified Category: Medical Plan: Most recent LDL cholesterol is at target. Plan The patient is seeing her primary care provider in May, and she will follow up with me in 6 months since no medication changes are needed at this time. She can follow up sooner as needed. Medications: New dextrose (TRUEplus Glucose) until symptoms of low blood sugar are controlled 15 grams (32 mL) PO Q15M PRN 128 mL 3RF hypoglycemia Refilled dulaglutide (Trulicity) 1.5 mg (0.5 mL) subcut QWEEK 2 mL 6RF 28 days Patient Instructions: If you experience low blood sugar, treat this by eating a chewable fruit candy like skittles or jelly beans (about 8 pieces), 4 ounces (1/2 cup) of fruit juice (not diet), 1 tablespoon of honey or 4 glucose tablets. If your blood sugar is under 50, take double the amount of one of the above. Recheck your blood sugar in 15 minutes. Continue Metformin 1000 mg twice daily and Trulicity 1.5 mg weekly. Coding Level of Care Code Est Pt Level 4 (89551) Complex EM visit Add On G2211 Diagnoses Type 2 diabetes mellitus with diabetic neuropathy E11.40 Essential hypertension I10 Hyperlipidemia LDL goal <70 E78.5
[2025-04-08 15:46] VITALS: BP 116/54; PULSE 58; O2SAT 96; BMI 23.4
[2025-04-08 15:55] LABS: Glucose, Whole Blood 117 mg/dL (60-115)
--- OUTSIDE RECORDS SUMMARY | 2025-04-08 18:47 | XMS_ITS | Encounter Summary ---
Author Organization [facility] Address [address] [place] [address] Phone Care Team Providers Care Public Address Technician Name Role Phone Pam Wills MD Primary Care Provider [phone] Encounter Details Date Type Department Care Team (Late Contact Info) Description 03/10/2025 Documentation Only [facility] [address] [place] [address] [place], [place] [address] [place] [address] Social History Tobacco Use Types [...] Care Team (Late st Contact Info) Description 08/06/2025 2:30 PM EST Office Visit [facility] [address] [place] [address] Rufus Caal [address] [place] [address] documented as of this encounter Visit Diagnoses Not on filedocumented in this encounter Care Teams Public Address Technician Relationship Specialty Start Date End Date Pam Wills MD [address] [place], [place] PCP - General Internal Medicine 05/11/21 documented as of this encounter
--- OUTSIDE RECORDS SUMMARY | 2025-04-08 18:47 | XMS_ITS | Encounter Summary ---
Author Organization [facility]. Address [address] [address] Phone Care Team Providers Care Refining Still Operator Name Role Phone Pam Wills MD Primary Care Provider [phone] Encounter Details Date Type Department Care Team (Late st Contact Info) Description 02/12/2025 Office Communication [facility] P. [address] [address] Monica Sagastume [address] [phone] Social History Tobacco Use Types Packs/Day Years [...] Needs appt with me in 2-3 wks--in [facility] office--pls call and arrange--thx documented in this encounter Plan of Treatment Upcoming Encounters Date Type Department Care Team (Late st Contact Info) Description 08/06/2025 2:30 PM EST Office Visit [facility] [place], [address] [place] [address] Rufus Caal, [address] [place] [address] documented as of this encounter Visit Diagnoses Not on filedocumented in this encounter Care Teams Refining Still Operator Relationship Specialty Start Date End Date Pam Wills MD [address] [place], [place] PCP - General Internal Medicine 05/11/21 documented as of this encounter
--- OUTSIDE RECORDS SUMMARY | 2025-04-08 18:47 | XMS_ITS | Clinical Summary ---
Author Organization 175 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 Govea on November 2024 Diabetes mellitus type 2 wit h neurological manifestations ([facility] V24, [facility] V28) 05/03/2017 Hyperlipidemia 05/03/2017 Hypertension 05/03/2017 Allergic rhinitis 04/25/2017 Asthma-COPD overlap syndrome ([facility] V24, [facility] V28) 04/25/2017 Overview (04/03/2024): Last [...] organism, unspecified acute renal failure type ([facility] V24, [facility] V28) 09/04/2024 09/06/2024 Encounters Date Type Department Care Team Description 03/13/2025 4:52 PM EDT - 03/13/2025 9:14 PM EDT Emergency [facility] Emergency [address] [place] [phone] Ruth Alford MD Other chest pain (Primary Dx) Discharge Disposition: Home or Self Care 02/12/2025 12:14 AM EDT - 02/12/2025 2:52 AM EDT Emergency [facility] Emergency [address] [place] [phone] Ruth Alford MD Hypertensive urgency (Primary Dx); Uncontrolled hypertension; Feeling unwell; Lightheadedness; Nonintractable episodic headache, unspecified headache type Discharge Disposition: Home or Self Care 01/31/2025 2:42 AM EDT - 01/31/2025 5:32 AM EDT Emergency [facility] Emergency [address] [place] [address] Seveor Cha MD COVID (Primary Dx) Discharge Disposition: [...] type 2 with neurological manifestations ([facility]) Hyperlipidemia 05/03/2017 DX:Hyperlipidemi a Hypertension [...] 10:45 AM EDT Office Visit Pulmonolgy - [place] [address] [phone] Fco Parsons MD [address] [address] 06/17/2025 2:00 PM EST Office Visit Infectious Disease - [place] [address] [phone] Natalie Govea MD [address] [address] Health Maintenance Due Date Last Done Comments [...] the time period is included. us Provider Yen ALBA ECG ORDERABLES Final Result * Troponin I high sensitivity (03/13/2025 6:54 PM EDT) Only the most recent of3 resultswithin the time period is included. [facility] High Sensitivity Troponin I 6 <=54 ng/L LAB CHEMISTRY METHOD 03/13/2025 7:49 PM EDT [facility] Blood Venous blood specimen / Unknown Venipuncture / Unknown 03/13/2025 6:54 PM EDT 03/13/2025 7:10 PM EDT Narrative [facility] - 03/13/2025 7:49 PM EDT High levels of biotin in samples may falsely decrease hsTroponin values. Use caution when interpreting hsTroponin results in patients taking biotin who exhibit renal impairment (eGFR <60) or in patients taking more than 20 mg/day of biotin. Jaylon Caal MD LAB BLOOD ORDERABLES Final Result [facility] [address] [place] [address], * ECG 12 lead (03/13/2025 6:52 PM EDT) Only the most recent of3 resultswithin the time period is included. [facility] Ventricular Rate ECG 69 BPM GEMUSE Atrial Rate 69 BPM GEMUSE P-R Interval 184 ms GEMUSE QRS Duration 122 ms GEMUSE Q-T Interval 396 ms GEMUSE QTc 424 ms GEMUSE P Wave Center [place] 76 degrees GEMUSE R Center [place] 42 degrees GEMUSE T Center [place] 56 degrees GEMUSE ECG Interpretation Normal sinus [...] resultswithin the time period is included. Pathologist [facility] Adenovirus Detection by PCR Not Detected Not Detected LAB MICROBIOLOGY METHOD 03/13/2025 7:40 PM EDT [facility] Influenza A PCR Not Detected Not Detected LAB MICROBIOLOGY METHOD 03/13/2025 7:40 PM EDT [facility] Influenza B PCR Not Detected Not Detected LAB MICROBIOLOGY METHOD 03/13/2025 7:40 PM EDT [facility] Coronavirus 229E Not Detected Not Detected LAB MICROBIOLOGY METHOD 03/13/2025 7:40 PM EDT [facility] Coronavirus HKU1 Not Detected Not Detected LAB MICROBIOLOGY METHOD 03/13/2025 7:40 PM EDT [facility] Coronavirus OC43 Not Detected Not Detected LAB MICROBIOLOGY METHOD 03/13/2025 7:40 PM EDT [facility] Coronavirus NL63 Not Detected Not Detected LAB MICROBIOLOGY METHOD 03/13/2025 7:40 PM EDT [facility] Parainfluenza Virus 1 Not Detected Not Detected LAB MICROBIOLOGY METHOD 03/13/2025 7:40 PM EDT [facility] Parainfluenza Virus 2 Not Detected Not Detected LAB MICROBIOLOGY METHOD 03/13/2025 7:40 PM EDT [facility] Parainfluenza Virus 3 Not Detected Not Detected LAB MICROBIOLOGY METHOD 03/13/2025 7:40 PM EDT [facility] Parainfluenza Virus 4 Not Detected Not Detected LAB MICROBIOLOGY METHOD 03/13/2025 7:40 PM EDT [facility] RSV PCR Not Detected Not Detected LAB MICROBIOLOGY METHOD 03/13/2025 7:40 PM EDT [facility] Human Metapneumovirus A and B Not Detected Not Detected LAB MICROBIOLOGY METHOD 03/13/2025 7:40 PM EDT [facility] Rhinovirus/Entero virus Not Detected Not Detected LAB MICROBIOLOGY METHOD 03/13/2025 7:40 PM EDT [facility] Bordetella pertussis Not Detected Not Detected LAB MICROBIOLOGY METHOD 03/13/2025 7:40 PM EDT [facility] Bordetella parapertussis Not Detected Not Detected LAB MICROBIOLOGY METHOD 03/13/2025 7:40 PM EDT [facility] Mycoplasma pneumo by PCR Not Detected Not Detected LAB MICROBIOLOGY METHOD 03/13/2025 7:40 PM EDT [facility] Chlamydia pneumoniae Not Detected Not Detected LAB MICROBIOLOGY METHOD 03/13/2025 7:40 PM EDT [facility] SARS COV-2 Not Detected Not Detected LAB MICROBIOLOGY METHOD 03/13/2025 7:40 PM EDT [facility] Swab Both anterior nares / Unknown Non-blood Collection / Unknown 03/13/2025 6:41 PM EDT 03/13/2025 6:45 PM EDT [facility] - 03/13/2025 7:40 PM EDT Testing was performed using the Appiterate Respiratory Pathogen PCR Assay. All results must [...] Alondra Shrestha NP LAB MICROBIOLOGY - GENERAL GEOVANNY MEANS Final Result [facility] [address] [place] [address], * CT Head wo Contrast (03/13/2025 6:11 [...] with COPD. No change since 02/12/2025. Code 66386 -------- FINAL REPORT -------- Dictated By: Jonah Hooker Dictated Date: 03/14/2025 09:04 ET Assigned Physician: Jonah Hooker Reviewed and Electronically Signed By: Jonah Hooker Signed Date: 03/14/2025 09:05 ET Workstation ID: [id number] Transcribed By: Self Edit Transcribed Date: 03/14/2025 [...] consistent with COPD. Nochange since 02/12/2025. Code 79957 -------- FINAL REPORT -------- Dictated By: Jonah Hooker Dictated Date: 03/14/2025 09:04 ET Assigned Physician: Jonah Hooker Reviewed and Electronically Signed By: Jonah Hooker Signed Date: 03/14/2025 09:05 ET Workstation ID: [id number] Transcribed By: Self Edit Transcribed Date: 03/14/2025 09:04 ET us Jaylon Caal MD IMG XR PROCEDURES Final Res ult * (ABNORMAL) CBC auto differential (03/13/2025 4:44 PM EDT) Only the most recent of2 resultswithin the time period is included. WBC 11.2(H) 4.8 - 10.8 K/mcL LAB HEMETOLOGY METHOD 03/13/2025 5:32 PM EDT [facility] RBC 4.30 3.80 - 4.80 M/mcL LAB HEMETOLOGY METHOD 03/13/2025 5:32 PM EDT [facility] Hemoglobin 11.1(L) 11.5 - 16.0 g/dL LAB HEMETOLOGY METHOD 03/13/2025 5:32 PM EDT [facility] Hematocrit 34.5(L) 35.0 - 47.0 % LAB HEMETOLOGY METHOD 03/13/2025 5:32 PM EDT [facility] MCV 80.6 79.0 - 98.0 FL LAB HEMETOLOGY METHOD 03/13/2025 5:32 PM EDT [facility] MCH 25.9(L) 27.0 - 32.0 pcg LAB HEMETOLOGY METHOD 03/13[facility]2025 5[facility] MCHC 32.2 32.0 - 37.0 g/dL LAB HEMETOLOGY METHOD 03/13/2025 5:32 PM EDT [facility] RDW 13.1 11.0 - 15.0 % LAB HEMETOLOGY METHOD 03/13/2025 5:32 PM EDT [facility] Platelets 296 130 - 400 K/mcL LAB HEMETOLOGY METHOD 03/13/2025 5:32 PM EDT [facility] MPV 9.5 7.0 - 11.0 FL LAB HEMETOLOGY METHOD 03/13/2025 5:32 PM EDT [facility] NRBC 0.0 <1.0 % LAB HEMETOLOGY METHOD 03/13/2025 5:32 PM EDT [facility] NRBC Absolute 0.00 <0.10 K/mcL LAB HEMETOLOGY METHOD 03/13/2025 5:32 PM EDT [facility] Neutrophils Relative 72.1 % LAB HEMETOLOGY METHOD 03/13/2025 5:32 PM EDT [facility] Lymphocytes Relative 20.0 % LAB HEMETOLOGY METHOD 03/13/2025 5:32 PM EDT [facility] Monocytes Relative 6.3 % LAB HEMETOLOGY METHOD 03/13/2025 5:32 PM EDT [facility] Eosinophils Relative 0.7 % LAB HEMETOLOGY METHOD 03/13/2025 5:32 PM EDT [facility] Basophils Relative 0.5 % LAB HEMETOLOGY METHOD 03/13/2025 5:32 PM EDT [facility] Immature Granulocytes Relative 0.4 % LAB HEMETOLOGY METHOD 03/13/2025 5:32 PM EDT [facility] Neutrophils Absolute 8.07(H) 1.50 - 7.00 K/mcL LAB HEMETOLOGY METHOD 03/13/2025 5:32 PM EDT [facility] Lymphocytes Absolute 2.24 1.00 - 5.00 K/mcL LAB HEMETOLOGY METHOD 03/13/2025 5:32 PM EDT [facility] Monocytes Absolute 0.71 0.20 - 1.00 K/mcL LAB HEMETOLOGY METHOD 03/13/2025 5:32 PM EDT [facility] Eosinophils Absolute 0.08 0.00 - 0.50 K/mcL LAB HEMETOLOGY METHOD 03/13/2025 5:32 PM EDT [facility] Basophils Absolute 0.06 0.00 - 0.20 K/mcL LAB HEMETOLOGY METHOD 03/13/2025 5:32 PM EDT [facility] Immature Granulocytes Absolute 0.05(H) 0.00 - 0.03 K/mcL LAB HEMETOLOGY METHOD 03/13/2025 5:32 PM EDT [facility] Blood Venous blood specimen / Unknown Venipuncture / Unknown 03/13/2025 4:44 PM EDT 03/13/2025 5:26 PM EDT us Jaylon Caal MD LAB BLOOD ORDERABLES Final Result Performing Organization Address [facility]/ZIP Co de Phone Number [facility] [address] [place] [address], [place] [phone] * B-type natriuretic peptide (03/13/2025 4:44 PM EDT) Only the most recent of2 resultswithin the time period is included. BNP 77 <=100 pcg/mL LAB CHEMISTRY METHOD 03/13/2025 6:11 PM EDT [facility] Blood Venous blood specimen / Unknown Venipuncture / Unknown 03/13/2025 4:44 PM EDT 03/13/2025 5:26 PM EDT us Jaylon Caal MD LAB BLOOD ORDERABLES Final Result Performing Organization Address [facility]/ZIP Co de Phone Number [facility] [address] [place] [address], [place] [phone] * (ABNORMAL) Magnesium (03/13/2025 4:44 PM EDT) Magnesium 1.7(L) 1.9 - 2.6 mg/dL LAB CHEMISTRY METHOD 03/13/2025 5:58 PM EDT [facility] Blood Venous blood specimen / Unknown Venipuncture / Unknown 03/13/2025 4:44 PM EDT 03/13/2025 5:26 PM EDT Jaylon Caal MD LAB BLOOD ORDERABLES Final Result [facility] [address] [place] [address], [place] [phone] * Lipase (03/13/2025 4:44 PM EDT) Pathologist [facility] Lipase 70 13 - 75 unit/L LAB CHEMISTRY METHOD 03/13/2025 5:58 PM EDT [facility] Blood Venous blood specimen / Unknown Venipuncture / Unknown 03/13/2025 4:44 PM EDT 03/13/2025 5:26 PM EDT Jaylon Caal MD LAB BLOOD ORDERABLES Final Result Performing Organization Address [facility]/ZIP Co de Phone Number [facility] [address] [place] [address], [place] [phone] * (ABNORMAL) Comprehensive metabolic panel (03/13/2025 4:44 PM EDT) Only the most recent of2 resultswithin the time period is included. Pathologist [facility] Sodium 139 133 - 145 mmol/L LAB CHEMISTRY METHOD 03/13/2025 5:58 PM EDT [facility] Potassium 5.1 3.5 - 5.5 mmol/L LAB CHEMISTRY METHOD 03/13/2025 5:58 PM EDT [facility] Chloride 105 96 - 110 mmol/L LAB CHEMISTRY METHOD 03/13/2025 5:58 PM EDT [facility] CO2 28 21 - 32 mmol/L LAB CHEMISTRY METHOD 03/13/2025 5:58 PM EDT [facility] Anion Gap 6 3 - 11 LAB CHEMISTRY METHOD 03/13/2025 5:58 PM EDT [facility] Glucose 115(H) 70 - 100 mg/dL LAB CHEMISTRY METHOD 03/13/2025 5:[facility] BUN 19 5 - 25 mg/dL LAB CHEMISTRY METHOD 03/13/2025 5:58 PM [facility] Creatinine 1.20(H) 0.50 - 1.10 mg/dL LAB CHEMISTRY METHOD 03/13/2025 5:58 PM [facility] eGFR 44(L) >=60 mL/min/1. 73m2 LAB CHEMISTRY METHOD 03/13/2025 5:58 PM [facility] Comment:Calculation based on the Chronic Kidney Disease Epidemiology Collaboration (CKD-EPI) equation refit without adjustment for race. BUN/Creatinine Ratio 15.8 LAB CHEMISTRY METHOD 03/13/2025 5:58 PM [facility] Calcium 9.9 8.5 - 10.5 mg/dL LAB CHEMISTRY METHOD 03/13/2025 5:58 PM [facility] AST (SGOT) 10 10 - 42 unit/L LAB CHEMISTRY METHOD 03/13/2025 5:58 PM [facility] ALT (SGPT) 19 10 - 60 unit/L LAB CHEMISTRY METHOD 03/13/2025 5:58 PM [facility] Alkaline Phosphatase 81 42 - 121 unit/L LAB CHEMISTRY METHOD 03/13/2025 5:58 PM [facility] Total Protein 7.3 6.0 - 8.0 g/dL LAB CHEMISTRY METHOD 03/13/2025 5:58 PM [facility] Albumin 4.1 3.2 - 5.0 g/dL LAB CHEMISTRY METHOD 03/13/2025 5:58 PM [facility] Total Bilirubin 0.4 0.0 - 1.4 mg/dL LAB CHEMISTRY METHOD 03/13/2025 5:58 PM [facility] Blood Venous blood specimen / Unknown Venipuncture / Unknown 03/13/2025 4:44 PM EDT 03/13/2025 5:26 PM EDT Jaylon Caal MD LAB BLOOD ORDERABLES Final Result Performing Organization Address [facility]/ZIP Co de Phone Number [facility] [address] [place] [address], * D-dimer, quantitative (02/11/2025 11:13 PM EDT) D-Dimer, Quant (D-DU) <150 <=230 ng/mL DDU LAB COAGULATION METHOD 02/11/2025 11:41 PM EDT [facility] Blood Venous blood specimen / Unknown Venipuncture / Unknown 02/11/2025 11:13 PM EDT 02/11/2025 11:20 PM EDT Narrative [facility] - 02/11/2025 11:41 PM EDT D-Dimer <230 ng/mL (D-Dimer units) is the threshold for exclusion of DVT/PE. D-Dimer may be elevated in: Critically ill, severely infected, trauma patients, DIC, acute CVA, acute ME, unstable angina, AF, old age, , and smoking. D-Dimer may be decreased with: Initiation of heparin therapy and oral anticoagulants. Joanna GARCIA LAB BLOOD ORDERABLES Fin al Result Performing Organization Address [facility] Co de Phone Number [facility] [address] [place] [address], [place] [phone] * (ABNORMAL) CBC (02/11/2025 11:13 PM EDT) WBC 7.8 4.8 - 10.8 K/mcL LAB HEMETOLOGY METHOD 02/11/2025 11:24 PM EDT [facility] RBC 4.30 3.80 - 4.80 M/mcL LAB HEMETOLOGY METHOD 02/11/2025 11:24 PM EDT [facility] Hemoglobin 11.0(L) 11.5 - 16.0 g/dL LAB HEMETOLOGY METHOD 02/11/2025 11:24 PM EDT [facility] Hematocrit 34.8(L) 35.0 - 47.0 % LAB HEMETOLOGY METHOD 02/11/2025 11:24 PM EDT [facility] MCV 81.3 79.0 - 98.0 FL LAB HEMETOLOGY METHOD 02/11/2025 11:24 PM EDT [facility] MCH 25.7(L) 27.0 - 32.0 pcg LAB HEMETOLOGY METHOD 02/11/2025 11:24 PM EDT [facility] MCHC 31.6(L) 32.0 - 37.0 g/dL LAB HEMETOLOGY METHOD 02/11/2025 11:24 PM EDT [facility] RDW 13.2 11.0 - 15.0 % LAB HEMETOLOGY METHOD 02/11/2025 11:24 PM EDT [facility] Platelets 293 130 - 400 K/mcL LAB HEMETOLOGY METHOD 02/11/2025 11:24 PM EDT [facility] MPV 9.3 7.0 - 11.0 FL LAB HEMETOLOGY METHOD 02/11/2025 11:24 PM EDT [facility] NRBC 0.0 <1.0 % LAB HEMETOLOGY METHOD 02/11/2025 11:24 PM EDT [facility] NRBC Absolute 0.00 <0.10 K/mcL LAB HEMETOLOGY METHOD 02/11/2025 11:24 PM EDT [facility] Blood Venous blood specimen / Unknown Venipuncture / Unknown 02/11/2025 11:13 PM EDT 02/11/2025 11:20 PM EDT Joanna GARCIA LAB BLOOD ORDERABLES Fin al Result [facility] [address] [place] [address], * (ABNORMAL) Blood gas, venous (02/11/2025 11:13 PM EDT) pH, Liam 7.33 7.32 - 7.42 pH 02/11/2025 11:24 PM EDT [facility] pCO2, Liam 53(H) 41 - 51 mmHg 02/11/2025 11:24 PM EDT [facility] pO2, Liam 35 25 - 40 mmHg 02/11/2025 11:24 PM EDT [facility] HCO3, Venous 24.9 22.0 - 26.0 mmol/L 02/11/2025 11:24 PM EDT [facility] O2 Sat, Liam 59.7 % 02/11/2025 11:24 PM EDT [facility] Base Excess, Liam 1.2 -2.0 - 2.0 mmol/L 02/11/2025 11:24 PM EDT [facility] Blood Venous blood specimen / Unknown Venipuncture / Unknown 02/11/2025 11:13 PM EDT 02/11/2025 11:19 PM EDT Joanna GARCIA LAB BLOOD ORDERABLES Fin al Result [facility] [address] [place] [address], [place] [phone] * Rapid strep A screen (01/31/2025 4:10 AM EDT) Pathologist [facility] Strep A Ag Negative Negative, Invalid 01/31/2025 5:29 AM EDT [facility] Comment:Refer to Throat Cult ure. Swab Structure of anterior portion of neck / Unknown Non-blood Collection / Unknown 01/31/2025 4:10 AM EDT 01/31/2025 4:36 AM EDT us Severo Cha MD LAB MICROBIOLOGY - GENERAL ORDERABLES Final Result Performing Organization Address City/[facility]/ZIP Co de Phone Number [facility] [address] [place] [address], [place] [phone] * Culture throat (01/31/2025 4:10 AM EDT) [facility] Culture, Throat No pathogens isolated. 02/02/2025 9:10 AM EDT [facility] Swab Structure of anterior portion of neck / Unknown Non-blood Collection / Unknown 01/31/2025 4:10 AM EDT 01/31/2025 4:36 AM EDT us Severo Cha MD LAB MICROBIOLOGY - GENERAL ORDERABLES Final Result Performing Organization Address [facility]/ZIP Co de Phone Number [facility] [address] [place] [address], [place] [phone] * (ABNORMAL) Basic metabolic panel (01/31/2025 12:33 AM EDT) [facility] Sodium 139 133 - 145 mmol/L LAB CHEMISTRY METHOD 01/31/2025 1:27 AM [facility] Potassium 4.5 3.5 - 5.5 mmol/L LAB CHEMISTRY METHOD 01/31/2025 1:[facility] Chloride 104 96 - [...] LAB CHEMISTRY METHOD 01/31/2025 1:27 AM EDT [facility] BUN 24 5 - 25 mg/dL LAB CHEMISTRY METHOD 01/31/2025 1:27 AM EDT [facility] Creatinine 1.09 0.50 - 1.10 mg/dL LAB CHEMISTRY METHOD 01/31/2025 1:27 AM EDT [facility] eGFR 50(L) >=60 mL/min/1. 73m2 LAB CHEMISTRY METHOD 01/31/2025 1:27 AM EDT [facility] Comment:Calculation based on the Chronic Kidney Disease Epidemiology Collaboration (CKD-EPI) equation refit without adjustment for race. BUN/Creatinine Ratio 22.0 LAB CHEMISTRY METHOD 01/31/2025 1:27 AM EDT [facility] Calcium 9.0 8.5 - 10.5 mg/dL LAB CHEMISTRY METHOD 01/31/2025 1:27 AM EDT [facility] Blood Venous blood specimen / Unknown Venipuncture / Unknown 01/31/2025 12:33 AM EDT 01/31/2025 12:55 AM EDT us Severo Cha MD LAB BLOOD ORDERABLES Final Result [facility] [address] [place] [address], * (ABNORMAL) Hemoglobin A1c (09/04/2024 9:10 AM EST) Hemoglobin A1C 8.5(H) <6.5 % LAB CHEMISTRY METHOD 09/04/2024 5:11 PM EST [facility] Mean Bld Glu Estim. 197 mg/dL LAB CHEMISTRY METHOD 09/04/2024 5:11 PM EST [facility] Blood Venous blood specimen / Unknown Venipuncture / Unknown 09/04/2024 9:10 AM EST 09/04/2024 9:26 AM EST us Laron Maldonado MD LAB BLOOD ORDERABLES Final Res ult [facility] [address] [place] [address], * DOMINIC SCREENING DIGITAL (07/01/2019 4:51 PM EST) Anatomical Region Laterality Modality Mammography 07/01/2019 12:3 0 PM EST Narrative 07/01/2019 4:51 PM EST [facility] Diagnostic Imaging Department [address] [place] [address] Patient: KRISTIN VALDIVIAO.B./Age/Sex: 1940 - 78 - F Unit#: [id number] Location/Status: SPDIMAM/REG CLI Mnemonic/Ordering Site: [facility] Ordering Physician: GRISELDA VELAZQUEZ MD [facility] Screening Digital - 07/01/19 - 1317 INDICATION: SCREENING COMPARISON: No prior studies are available for comparison. TECHNIQUE: CC and MLO views of the breasts were obtained, using full field digital mammography with 3D tomosynthesis views in the MLO projection. Computer aided detection with the VendorStack 7.2-H was employed. Patient reports 2 sisters [...] a target date for the next mammogram. [id number]) , [id number] Dictating Physician: BRODY SMITH MD Electronically Signed by: BRODY SMITH MD Dic Date/Time: 07/01/19 1645 Sign date/Time: 07/01/19 [id number] Procedure Note Brody Smith - 07/13/2022 [facility] Diagnostic Imaging Department [address] [place] [id number] Patient: MERI MCGREGORKRISTIN./Age/Sex: 1940 - 78 - F Unit#: [id number] Location/Status: [facility] Mnemonic/Ordering Site: [facility] Ordering Physician: GRISELDA VELAZQUEZ MD [facility] Screening Digital - 07/01/19 - 1316 INDICATION: SCREENING COMPARISON: No prior studies are available for comparison. TECHNIQUE: CC and MLO views of the breasts were obtained, using full field digital mammography with 3D tomosynthesis views in the MLO projection. Computer aided detection with the VendorStack 7.2-H was employed. Patient reports 2 sisters [...] a target date for the next mammogram. 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
--- OUTSIDE RECORDS SUMMARY | 2025-04-08 18:47 | XMS_ITS | Clinical Summary ---
Author Organization [facility] Address [address] [place] [phone] Phone Care Team Providers Care Game Artist Name Role Phone Pam Wills MD Primary Care Provider [phone] Allergies No known active allergies Medications Trulicity [...] 1 (one) time each day 1 Active ALBUTEROL IN Inhale Active apixaban (ELIQUIS) [...] mouth 1 (one) time each day Active metoprolol tartrate (LOPRESSOR) 100 MG tablet Take 100 mg by mouth 2 (two) times a day Active alendronate (FOSAMAX) 70 MG tablet Take 70 mg by mouth 5 Active Cholecalciferol (Vitamin D3) 1000 units capsule Take by mouth Active losartan (COZAAR) 25 MG tablet Take 50 mg by mouth 1 (one) time each day Active potassium chloride 10 MEQ CR tablet Take 10 mEq by mouth 1 (one) time each day Do not crush, chew, or split. 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 05/03/2017 Encounters Date Type Department Care Team Description 03/26/2025 1:30 PM EDT Office Visit [facility] [address] [place] [address] Rufus Caal DO Stage 3a chronic kidney disease (HCC) (Primary Dx); Type 2 diabetes mellitus with diabetic chronic kidney disease (HCC); Persistent proteinuria; Hypertension 03/10/2025 Documentation Only [facility] [address] [place] [address] Adrian Tsang MA 02/20/2025 1:30 PM EDT Office Visit [facility] [address] [address] Jaylon Barreto MD Stage 3a chronic kidney disease (HCC) (Primary Dx); Type 2 diabetes mellitus with diabetic chronic kidney disease (HCC); Renal osteodystrophy 02/12/2025 Office Communication [facility] [address] [address] Monica Sagastume from Last 3 Months Immunizations [...] Sign Reading Time Taken Comments Blood Pressure 126/62 03/26/2025 2:01 PM EDT Pulse 70 03/26/2025 2:01 PM EDT Temperature - - Respiratory Rate [...] Visit [facility] [place], [address] [place] [phone] Rufus Caal DO [address] [place] [address] Health Maintenance Due Date Last Done Comments [...] Relevant to Health Maintenance Insurance [facility] Medicare [id number] Medicare [facility] Care Teams Game Artist Relationship Specialty Start Date End Date Pam Wills MD [address] [place], [place] PCP - General Internal Medicine 05/11/21
--- OUTSIDE RECORDS SUMMARY | 2025-04-08 18:47 | XMS_ITS | Encounter Summary ---
Author Organization [facility] Address [address] [facility] [address] [place] [address] Phone Care Team Providers Care Lavatory Attendant Name Role Phone Pam Wills MD Primary Care Provider [phone] Encounter Details Date Type Department Care Team (Late Contact Info) Description 08/03/2021 Documentation Only [facility] [address] [facility] [address] [facility] [address] [place] [phone] Jaylon Barreto MD [address] [place] [phone] Social History Tobacco Use Types Packs/Day Years [...] Visit [facility] [place], [address] [place] [address] Rufus Caal, DO [address] [place] [address] documented as of this encounter Visit Diagnoses Not on filedocumented in this encounter Care Teams Lavatory Attendant Relationship Specialty Start Date End Date Pam Wills MD [address] [place], [place] PCP - General Internal Medicine 05/11/21 documented as of this encounter
== END 2025-04-08 16:30 | disposition home or self-care (01) ==
LOC: HO.ENCR 15:24
PROVIDERS: PCP Internal Medicine; Visit Provider Physician Assistant Medical
DX: E11.40 Type 2 diabetes mellitus with diabetic neuropathy, unspecified (principal); I10 Essential (primary) hypertension; E78.5 Hyperlipidemia, unspecified

== ENCOUNTER → 2025-04-08 15:23 | Outpatient (BNVA) | payer MEDICARE, OTHER, MEDICAID, SELFPAY | PROVIDERS: PCP Internal Medicine; Visit Provider Physician Assistant Medical | DX: E11.40 Type 2 diabetes mellitus with diabetic neuropathy, unspecified (principal); E78.5 Hyperlipidemia, unspecified; J44.9 Chronic obstructive pulmonary disease, unspecified; I12.9 Hypertensive chronic kidney disease with stage 1 through stage 4 chronic kidney disease, or unspecified chronic kidney disease; E11.22 Type 2 diabetes mellitus with diabetic chronic kidney disease; N18.30 Chronic kidney disease, stage 3 unspecified; Z79.84 Long term (current) use of oral hypoglycemic drugs | CPT/HCPCS: 82947; 99212 ==

== ENCOUNTER 2025-04-28 11:04 | Outpatient (REF) | payer MEDICARE, OTHER, MEDICAID, SELFPAY ==
--- NOTE | ~2025-04-28 | XR_ITS ---
EXAMINATION: XR CHEST CLINICAL INFORMATION: J06.9 - Acute upper respiratory infection, unspecified COMPARISON: 01/31/2025, 06/24/2024. TECHNIQUE: 2 views of the chest were obtained. FINDINGS: The cardiac, hilar, and mediastinal contours are normal. Aortic mural calcifications. Lungs are diffusely hyperaerated with flattened hemidiaphragms in keeping with COPD. There is similar chronic reticular scarring in the right middle lobe and lingula. There is no pneumothorax or pleural effusion. There is no focal osseous or soft tissue abnormality. Surgical anchors right humeral head. Mild spinal degenerative changes present. XR/XR chest 2V IMPRESSION: 1. COPD with chronic appearing reticular scarring in the right middle lobe and lingula. 2. No active superimposed disease. Electronically signed by: Binh Rivers MD 04/28/2025 01:44 PM EDT
== END 2025-04-28 11:05 | disposition home or self-care (01) ==
LOC: HO.HMGCX 11:04
PROVIDERS: PCP Internal Medicine; Visit Provider Nurse Practitioner Family
DX: J06.9 Acute upper respiratory infection, unspecified (principal); J44.9 Chronic obstructive pulmonary disease, unspecified
CPT/HCPCS: 71046; 99212

== ENCOUNTER 2025-04-28 11:04 | Outpatient (AMB) | payer MEDICARE, OTHER, MEDICAID, SELFPAY ==
[2025-04-28 12:42] VITALS: BP 120/58; PULSE 73; TEMP 36.8; O2SAT 96; BMI 23.4
--- NOTE | 2025-04-28 12:42 | MHC.OFFWIV ---
Intake Vital Signs 04/28/25 12:42 Height 5 ft 3 in Weight 132 lb BMI 23.4 BP 120/58 L Blood Pressure Location Lt brachial Position Sitting Pulse 73 Pulse Source Pulse Oximeter Temp 98.3 F Temp Source Oral Pulse Oximetry (%) 96 Intake Visit Reasons: ep covid symptoms Patient Tobacco Use Status: Never used Tobacco Allergies amlodipine Adverse Reaction (Intermediate, Verified 03/25/25 14:03) leg edema empagliflozin (From Jardiance) Adverse Reaction (Verified 03/25/25 14:03) vaginal candidiasis Do you need a note to return to daycare/school/sports/work: No HPI HPI Comments History of Present Illness Details 84 y/o Female patient who presents to the walk in clinic accompanied with Grand-daughter c/o URI Symptoms since the weekend. Pt reports Coughing, Subjective fevers, Wheezing, SOB, chest tightness and Generalized body aches. Pt has h/o COPD, she has been doing Neb Tx at home. She does Go to Adult Day program Daily. [facility] Medical History (Updated 04/28/25 @ 13:12 by Vita Rajan NP) Acute respiratory disease Type 2 diabetes mellitus with diabetic neuropathy COPD (chronic obstructive pulmonary disease) Left shoulder pain Hyperlipidemia LDL goal <100 Abnormal SPEP Vitamin D deficiency Osteoporosis Age related osteoporosis Physical exam Hypomagnesemia Atrial fibrillation with rapid ventricular response Urinary incontinence Abnormal EKG Screening for osteoporosis Neuropathy Microalbuminuria JONNY (obstructive sleep apnea) Left shoulder pain Anemia GERD (gastroesophageal reflux disease) Coronary artery disease Hypertension Type 2 diabetes mellitus with hyperglycemia Surgical History History of surgery on arm Hx of dilation and curettage Hx of breast biopsy Family History Mother Diabetes mellitus Father CAD (coronary artery disease) Sister Lymphoma Breast cancer Brother Colon cancer Social History Household Members: Family Housing: House Are you a primary home care coordinator to a significant other at home: No Do you presently have visiting nurse or other home services: Yes (insurance nurse) Alcohol intake: never Patient Tobacco Use Status: Never used Tobacco e-Cigarette/Vaping Use: Never Used Second Hand Smoke Exposure: No service: No Current occupational status: disabled Cognitive needs: No Hearing needs: No Vision needs: Yes Review of Systems Const All systems reviewed & are unremarkable except as noted in HPI and below Physical Exam Vital Signs: Last Vital Signs Temp 98.3 F 04/28/25 12:42 Pulse 73 04/28/25 12:42 BP 120/58 L 04/28/25 12:42 Pulse Ox 96 04/28/25 12:42 BMI result Body Mass Index 23.4 Const General: no acute distress Nutritional Appearance: well nourished Orientation/consciousness: patient oriented x3 Limitations: language barrier HEENT Head: Yes normocephalic Ears: external ears normal and TM's normal bilaterally General nose exam: Nasal discharge present Face and sinus: Yes sinuses nontender Mouth: moist mucous membranes Throat: Yes uvula midline Resp Effort & Inspection: normal respiratory effort, no audible wheezes and Actively coughing Auscultation: clear to auscultation bilaterally, no crackles, no rales, no rhonchi and no wheezes Cardio Heart sounds: S1 normal heart sound present and S2 normal heart sound present Neuro General: patient oriented x3 Assessment & Plan Assessment & Plan (1) Acute respiratory disease: Code(s): J06.9 - Acute upper respiratory infection, unspecified Plan: Ordered Chest Xray to r/o Pneumonia. Ordered Resp Panel Ordered Z-pack and Benzonatate Orders: Orders XR chest 2V Today J06.9 - Acute upper respiratory infection, unspecified Resp Pathogen Panel - [facility] Today J06.9 - Acute upper respiratory infection, unspecified Medications: New azithromycin 500 mg PO DAILY 3 tabs 0RF cough 3 days J06.9 - Acute upper respiratory infection, unspecified benzonatate 200 mg (2 x 100 mg) PO BID 60 caps 0RF cough J06.9 - Acute upper respiratory infection, unspecified Coding Level of Care Code Est Pt Level 4 (13972) Diagnoses Acute respiratory disease J06.9 Time Spent (min) 20
--- OUTSIDE RECORDS SUMMARY | 2025-04-28 13:31 | XMS_ITS | Encounter Summary ---
Author Organization [facility] Address [address] [facility] [address] [place] [address] Phone Care Team Providers Care Glaze Supervisor Name Role Phone Pam Wills MD Primary Care Provider [phone] Encounter Details Date Type Department Care Team (Late Contact Info) Description 08/03/2021 Documentation Only [facility] [address] [facility] [address] [place] [phone] Jaylon Barreto MD [address] [facility] [address] [place] [phone] Social History Tobacco Use Types Packs/Day Years [...] Visit [facility] [place], [address] [place] [address] Rufus Caal, DO [address] [place] [address] documented as of this encounter Visit Diagnoses Not on filedocumented in this encounter Care Teams Glaze Supervisor Relationship Specialty Start Date End Date Pam Wills MD [address] [place], [place] PCP - General Internal Medicine 05/11/21 documented as of this encounter
--- OUTSIDE RECORDS SUMMARY | 2025-04-28 13:31 | XMS_ITS | Encounter Summary ---
Author Organization [facility] Address [address] [place] [address] Phone Care Team Providers Care Plastic Tile Layer Name Role Phone Pam Wills MD Primary Care Provider [phone] Encounter Details Date Type Department Care Team (Late Contact Info) Description 03/10/2025 Documentation Only [facility] [address] [place] [address] Adrian TsangTUST[place], [place] [address] [place] [address] Social History Tobacco Use Types [...] Visit [facility] [address] [place] [address] Rufus Caal [address] [place] [address] documented as of this encounter Visit Diagnoses Not on filedocumented in this encounter Care Teams Plastic Tile Layer Relationship Specialty Start Date End Date Pam Wills MD [address] [place], [place] PCP - General Internal Medicine 05/11/21 documented as of this encounter
--- OUTSIDE RECORDS SUMMARY | 2025-04-28 13:31 | XMS_ITS | Clinical Summary ---
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 Govea on November 2024 Diabetes mellitus type 2 wit h neurological manifestations ([facility] V24, [facility] V28) 05/03/2017 Hyperlipidemia 05/03/2017 Hypertension 05/03/2017 Allergic rhinitis 04/25/2017 Asthma-COPD overlap syndrome ([facility] V24, [facility] V28) 04/25/2017 Overview (04/03/2024): Last [...] unspecified organism, unspecified acute renal failure type ([facility] V24, [facility] V28) 09/04/2024 09/06/2024 Encounters Date Type Department Care Team Description 03/13/2025 4:52 PM EDT - 03/13/2025 9:14 PM EDT Emergency [facility] Emergency [address] [place] [phone] Ruth Alford MD Other chest pain (Primary Dx) Discharge Disposition: Home or Self Care 02/12/2025 12:14 AM EDT - 02/12/2025 2:52 AM EDT Emergency [facility] Emergency [address] [place] [phone] Ruth Alford MD Hypertensive urgency (Primary Dx); Uncontrolled hypertension; Feeling unwell; Lightheadedness; Nonintractable episodic headache, unspecified headache type Discharge Disposition: Home or Self Care 01/31/2025 2:42 AM EDT - 01/31/2025 5:32 AM EDT Emergency [facility] Emergency [address] [place] [address] Severo Cha MD COVID (Primary Dx) Discharge Disposition: Home or Self Care from Last 3 Months Immunizations Immunization Administration Dates Next Due Influenza trivalent, 0.5mL, [...] DX:Diabetes mellitus type 2 with neurological manifestations ([facility]) Hyperlipidemia 05/03/2017 DX:Hyperlipidemi a Hypertension 05/03/2017 DX:Hypertension Insomnia 10/09/2015 DX:Insomnia Mass of colon 08/22/2016 DX:Mass of colon Social History Tobacco Use Types Packs/Day Years Used Date Smoking Tobacco: Never Smokeless Tobacco: Never Tobacco Cessation:Counseling Given: Not Answered Alcohol Use Standard Drinks/Week Comments No 0 (1 standard drink = 0.6 oz pur e alcohol) Interpersonal Safety Answer Date Record ed Physical Abuse Unrecognized value 09/05/2024 Verbal Abuse Unrecognized value 09/05/2024 Comments No Sex and Gender Information [...] Description 05/08/2025 10:45 AM EDT Office Visit Pulmonology - [place] [address] [phone] Fco Parsons MD [address] [address] 06/17/2025 2:00 PM EST Office Visit Infectious Disease - [place] [address] [phone] Natalie Govea MD [address] [address] Health Maintenance Due Date Last Done Comments [...] of3 resultswithin the time period is included. [facility] High Sensitivity Troponin I 6 <=54 ng/L LAB CHEMISTRY METHOD 03/13/2025 7:49 PM EDT [facility] Blood Venous blood specimen / Unknown Venipuncture / Unknown 03/13/2025 6:54 PM EDT 03/13/2025 7:10 PM EDT Narrative [facility] - 03/13/2025 7:49 PM EDT High levels of biotin in samples may falsely decrease hsTroponin values. Use caution when interpreting hsTroponin results in patients taking biotin who exhibit renal impairment (eGFR <60) or in patients taking more than 20 mg/day of biotin. Jaylon Caal MD LAB BLOOD ORDERABLES Final Result [facility] [address] [place] [address], * ECG 12 lead (03/13/2025 6:52 PM EDT) Only the most recent of3 resultswithin the time period is included. [facility] Ventricular Rate ECG 69 BPM GEMUSE Atrial Rate 69 BPM GEMUSE P-R Interval 184 ms GEMUSE QRS Duration 122 ms GEMUSE Q-T Interval 396 ms GEMUSE QTc 424 ms GEMUSE P Wave Jackson 76 degrees GEMUSE R Jackson 42 degrees GEMUSE T Jackson 56 degrees GEMUSE ECG Interpretation Normal sinus [...] resultswithin the time period is included. Pathologist [facility] Adenovirus Detection by PCR Not Detected Not Detected LAB MICROBIOLOGY METHOD 03/13/2025 7:40 PM EDT [facility] Influenza A PCR Not Detected Not Detected LAB MICROBIOLOGY METHOD 03/13/2025 7:40 PM EDT [facility] Influenza B PCR Not Detected Not Detected LAB MICROBIOLOGY METHOD 03/13/2025 7:40 PM EDT [facility] Coronavirus 229E Not Detected Not Detected LAB MICROBIOLOGY METHOD 03/13/2025 7:40 PM EDT [facility] Coronavirus HKU1 Not Detected Not Detected LAB MICROBIOLOGY METHOD 03/13/2025 7:40 PM EDT [facility] Coronavirus OC43 Not Detected Not Detected LAB MICROBIOLOGY METHOD 03/13/2025 7:40 PM EDT [facility] Coronavirus NL63 Not Detected Not Detected LAB MICROBIOLOGY METHOD 03/13/2025 7:40 PM EDT [facility] Parainfluenza Virus 1 Not Detected Not Detected LAB MICROBIOLOGY METHOD 03/13/2025 7:40 PM EDT [facility] Parainfluenza Virus 2 Not Detected Not Detected LAB MICROBIOLOGY METHOD 03/13/2025 7:40 PM EDT [facility] Parainfluenza Virus 3 Not Detected Not Detected LAB MICROBIOLOGY METHOD 03/13/2025 7:40 PM EDT [facility] Parainfluenza Virus 4 Not Detected Not Detected LAB MICROBIOLOGY METHOD 03/13/2025 7:40 PM EDT [facility] RSV PCR Not Detected Not Detected LAB MICROBIOLOGY METHOD 03/13/2025 7:40 PM EDT [facility] Human Metapneumovirus A and B Not Detected Not Detected LAB MICROBIOLOGY METHOD 03/13/2025 7:40 PM EDT [facility] Rhinovirus/Entero virus Not Detected Not Detected LAB MICROBIOLOGY METHOD 03/13/2025 7:40 PM EDT [facility] Bordetella pertussis Not Detected Not Detected LAB MICROBIOLOGY METHOD 03/13/2025 7:40 PM EDT [facility] Bordetella parapertussis Not Detected Not Detected LAB MICROBIOLOGY METHOD 03/13/2025 7:40 PM EDT [facility] Mycoplasma pneumo by PCR Not Detected Not Detected LAB MICROBIOLOGY METHOD 03/13/2025 7:40 PM EDT [facility] Chlamydia pneumoniae Not Detected Not Detected LAB MICROBIOLOGY METHOD 03/13/2025 7:40 PM EDT [facility] SARS COV-2 Not Detected Not Detected LAB MICROBIOLOGY METHOD 03/13/2025 7:40 PM EDT [facility] Swab Both anterior nares / Unknown Non-blood Collection / Unknown 03/13/2025 6:41 PM EDT 03/13/2025 6:45 PM EDT [facility] - 03/13/2025 7:40 PM EDT Testing was performed using the Varioptice Respiratory Pathogen PCR Assay. All results must [...] Alondra Shrestha NP LAB MICROBIOLOGY - GENERAL ORDE CLARY Final Result [facility] [address] [place] [address], * CT Head wo Contrast (03/13/2025 6:11 [...] with COPD. No change since 02/12/2025. Code 33878 -------- FINAL REPORT -------- Dictated By: Jonah Hooker Dictated Date: 03/14/2025 09:04 ET Assigned Physician: Jonah Hooker Reviewed and Electronically Signed By: Jonah Hooker Signed Date: 03/14/2025 09:05 ET Workstation ID: [id number] Transcribed By: Self Edit Transcribed Date: 03/14/2025 [...] consistent with COPD. Nochange since 02/12/2025. Code 47084 -------- FINAL REPORT -------- Dictated By: Jonah Hooker Dictated Date: 03/14/2025 09:04 ET Assigned Physician: Jnoah Hooker Reviewed and Electronically Signed By: Jonah Hooker Signed Date: 03/14/2025 09:05 ET Workstation ID: [id number] Transcribed By: Self Edit Transcribed Date: 03/14/2025 09:04 ET us Jaylon Caal MD IMG XR PROCEDURES Final Res ult * (ABNORMAL) CBC auto differential (03/13/2025 4:44 PM EDT) Only the most recent of2 resultswithin the time period is included. [facility] Signature WBC 11.2(H) 4.8 - 10.8 K/mcL LAB HEMETOLOGY METHOD 03/13/2025 5:32 PM EDT [facility] RBC 4.30 3.80 - 4.80 M/mcL LAB HEMETOLOGY METHOD 03/13/2025 5:32 PM EDT [facility] Hemoglobin 11.1(L) 11.5 - 16.0 g/dL LAB HEMETOLOGY METHOD 03/13/2025 5:32 PM EDT [facility] Hematocrit 34.5(L) 35.0 - 47.0 % LAB HEMETOLOGY METHOD 03/13/2025 5:32 PM EDT [facility] MCV 80.6 79.0 - 98.0 FL LAB HEMETOLOGY METHOD 03/13/2025 5:32 PM EDT [facility] MCH 25.9(L) 27.0 - 32.0 pcg LAB HEMETOLOGY METHOD 03/13/2025 5:32 PM EDT [facility] MCHC 32.2 32.0 - 37.0 g/dL LAB HEMETOLOGY METHOD 03/13/2025 5:32 PM EDT [facility] RDW 13.1 11.0 - 15.0 % LAB HEMETOLOGY METHOD 03/13/2025 5:32 PM EDT [facility] Platelets 296 130 - 400 K/mcL LAB HEMETOLOGY METHOD 03/13/2025 5:32 PM EDT [facility] MPV 9.5 7.0 - 11.0 FL LAB HEMETOLOGY [facility]25 [facility] NRBC 0.0 <1.0 % LAB HEMETOLOGY METHOD 03/13/2025 5:32 PM EDT [facility] NRBC Absolute 0.00 <0.10 K/mcL LAB HEMETOLOGY METHOD 03/13/2025 5[facility] Neutrophils Relative 72.1 % LAB HEMETOLOGY METHOD 03/13/2025 5:[facility] Lymphocytes Relative 20.0 % LAB HEMETOLOGY METHOD 03/13/2025 5:32 PM [facility] Monocytes Relative 6.3 % LAB HEMETOLOGY METHOD 03/13/2025 5:32 PM [facility] Eosinophils Relative 0.7 % LAB HEMETOLOGY METHOD 03/13/2025 5:32 PM [facility] Basophils Relative 0.5 % LAB HEMETOLOGY METHOD 03/13/2025 5:32 PM [facility] Immature Granulocytes Relative 0.4 % LAB HEMETOLOGY METHOD 03/13/2025 5:32 PM [facility] Neutrophils Absolute 8.07(H) 1.50 - 7.00 K/mcL LAB HEMETOLOGY METHOD 03/13/2025 5:32 PM [facility] Lymphocytes Absolute 2.24 1.00 - 5.00 K/mcL LAB HEMETOLOGY METHOD 03/13/2025 5:32 PM EDT [facility] Monocytes Absolute 0.71 0.20 - 1.00 K/mcL LAB HEMETOLOGY METHOD 03/13/2025 5:32 PM [facility] Eosinophils Absolute 0.08 0.00 - 0.50 K/mcL LAB HEMETOLOGY METHOD 03/13/2025 5:32 PM [facility] Basophils Absolute 0.06 0.00 - 0.20 K/mcL LAB HEMETOLOGY METHOD 03/13/2025 5:32 PM EDT [facility] Immature Granulocytes Absolute 0.05(H) 0.00 - 0.03 K/mcL LAB HEMETOLOGY METHOD 03/13/2025 5:32 PM EDT [facility] Blood Venous blood specimen / Unknown Venipuncture / Unknown 03/13/2025 4:44 PM EDT 03/13/2025 5:26 PM EDT Jaylon Caal MD LAB BLOOD ORDERABLES Final Result Performing Organization Address [facility]/ZIP Co de Phone Number [facility] [address] [place] [address], [place] [phone] * B-type natriuretic peptide (03/13/2025 4:44 PM EDT) Only the most recent of2 resultswithin the time period is included. BNP 77 <=100 pcg/mL LAB CHEMISTRY METHOD 03/13/2025 6:11 PM EDT [facility] Blood Venous blood specimen / Unknown Venipuncture / Unknown 03/13/2025 4:44 PM EDT 03/13/2025 5:26 PM EDT Jaylon Caal MD LAB BLOOD ORDERABLES Final Result Performing Organization Address [facility]/ZIP Co de Phone Number [facility] [address] [place] [address], [place] [phone] * (ABNORMAL) Magnesium (03/13/2025 4:44 PM EDT) Magnesium 1.7(L) 1.9 - 2.6 mg/dL LAB CHEMISTRY METHOD 03/13/2025 5:58 PM EDT [facility] Blood Venous blood specimen / Unknown Venipuncture / Unknown 03/13/2025 4:44 PM EDT 03/13/2025 5:26 PM EDT Jaylon Caal MD LAB BLOOD ORDERABLES Final Result [facility] [address] [place] [address], [place] [phone] * Lipase (03/13/2025 4:44 PM EDT) [facility] Lipase 70 13 - 75 unit/L LAB CHEMISTRY METHOD 03/13/2025 5:58 PM EDT [facility] Blood Venous blood specimen / Unknown Venipuncture / Unknown 03/13/2025 4:44 PM EDT 03/13/2025 5:26 PM EDT aJylon Caal MD LAB BLOOD ORDERABLES Final Result Performing Organization Address [facility]/ZIP Co de Phone Number [facility] [address] [place] [address], [place] [phone] * (ABNORMAL) Comprehensive metabolic panel (03/13/2025 4:44 PM EDT) Only the most recent of2 resultswithin the time period is included. [facility] Sodium 139 133 - 145 mmol/L LAB CHEMISTRY METHOD 03/13/2025 5:58 PM EDT [facility] Potassium 5.1 3.5 - 5.5 mmol/L LAB CHEMISTRY METHOD 03/13/2025 5:58 PM EDT [facility] Chloride 105 96 - 110 mmol/L LAB CHEMISTRY METHOD 03/13/2025 5:58 PM EDT [facility] CO2 28 21 - 32 mmol/L LAB CHEMISTRY METHOD 03/13/2025 5:58 PM EDT [facility] Anion Gap 6 3 - 11 LAB CHEMISTRY METHOD 03/13/2025 5:58 PM EDT [facility] Glucose 115(H) 70 - 100 mg/dL LAB CHEMISTRY METHOD 03/13/2025 5:58 PM [facility] BUN 19 5 - 25 mg/dL LAB CHEMISTRY METHOD 03/13/2025 5:58 PM [facility] Creatinine 1.20(H) 0.50 - 1.10 mg/dL LAB CHEMISTRY METHOD 03/13/2025 5:58 PM [facility] eGFR 44(L) >=60 mL/min/1. 73m2 LAB CHEMISTRY METHOD 03/13/2025 5:58 PM [facility] Comment:Calculation based on the Chronic Kidney Disease Epidemiology Collaboration (CKD-EPI) equation refit without adjustment for race. BUN/Creatinine Ratio 15.8 LAB CHEMISTRY METHOD 03/13/2025 5:58 PM [facility] Calcium 9.9 8.5 - 10.5 mg/dL LAB CHEMISTRY METHOD 03/13/2025 5:58 PM [facility] AST (SGOT) 10 10 - 42 unit/L LAB CHEMISTRY METHOD 03/13/2025 5:58 PM [facility] ALT (SGPT) 19 10 - 60 unit/L LAB CHEMISTRY METHOD 03/13/2025 5:58 PM [facility] Alkaline Phosphatase 81 42 - 121 unit/L LAB CHEMISTRY METHOD 03/13/2025 5:58 PM [facility] Total Protein 7.3 6.0 - 8.0 g/dL LAB CHEMISTRY METHOD 03/13/2025 5:58 PM [facility] Albumin 4.1 3.2 - 5.0 g/dL LAB CHEMISTRY METHOD 03/13/2025 5:58 PM [facility] Total Bilirubin 0.4 0.0 - 1.4 mg/dL LAB CHEMISTRY METHOD 03/13/2025 5:58 PM [facility] Blood Venous blood specimen / Unknown Venipuncture / Unknown 03/13/2025 4:44 PM EDT 03/13/2025 5:26 PM EDT Jaylon Caal MD LAB BLOOD ORDERABLES Final Result Performing Organization Address [facility]/ZIP Co de Phone Number [facility] [address] [place] [address], * D-dimer, quantitative (02/11/2025 11:13 PM EDT) Pathologist [facility] D-Dimer, Quant (D-DU) <150 <=230 ng/mL DDU LAB COAGULATION METHOD 02/11/2025 11:41 PM EDT [facility] Blood Venous blood specimen / Unknown Venipuncture / Unknown 02/11/2025 11:13 PM EDT 02/11/2025 11:20 PM EDT Narrative [facility] - 02/11/2025 11:41 PM EDT D-Dimer <230 ng/mL (D-Dimer units) is the threshold for exclusion of DVT/PE. D-Dimer may be elevated in: Critically ill, severely infected, trauma patients, DIC, acute CVA, acute [place], unstable angina, AF, old age, , and smoking. D-Dimer may be decreased with: Initiation of heparin therapy and oral anticoagulants. Joanna GARCIA LAB BLOOD ORDERABLES Fin al Result Performing Organization Address [facility]/ZIP Co de Phone Number [facility] [address] [place] [address], * (ABNORMAL) CBC (02/11/2025 11:13 PM EDT) WBC 7.8 4.8 - 10.8 K/[facility] LAB HEMETOLOGY METHOD 02/11/2025 11:24 PM EDT [facility] RBC 4.30 3.80 - 4.80 M/mcL LAB HEMETOLOGY METHOD 02/11/2025 11:24 PM EDT [facility] Hemoglobin 11.0(L) 11.5 - 16.0 g/dL LAB HEMETOLOGY METHOD 02/11/2025 11:24 PM EDT [facility] Hematocrit 34.8(L) 35.0 - 47.0 % LAB HEMETOLOGY METHOD 02/11/2025 11:24 PM EDT [facility] MCV 81.3 79.0 - 98.0 FL LAB HEMETOLOGY METHOD 02/11/2025 11:24 PM EDT [facility] MCH 25.7(L) 27.0 - 32.0 pcg LAB HEMETOLOGY METHOD 02/11/2025 11:24 PM EDT [facility] MCHC 31.6(L) 32.0 - 37.0 g/dL LAB HEMETOLOGY METHOD 02/11/2025 11:24 PM EDT [facility] RDW 13.2 11.0 - 15.0 % LAB HEMETOLOGY METHOD 02/11/2025 11:24 PM EDT [facility] Platelets 293 130 - 400 K/mcL LAB HEMETOLOGY METHOD 02/11/2025 11:24 PM EDT [facility] MPV 9.3 7.0 - 11.0 FL LAB HEMETOLOGY METHOD 02/11/2025 11:24 PM EDT [facility] NRBC 0.0 <1.0 % LAB HEMETOLOGY METHOD 02/11/2025 11:24 PM EDT [facility] NRBC Absolute 0.00 <0.10 K/mcL LAB HEMETOLOGY METHOD 02/11/2025 11:24 PM EDT [facility] Blood Venous blood specimen / Unknown Venipuncture / Unknown 02/11/2025 11:13 PM EDT 02/11/2025 11:20 PM EDT us Joanna GARCIA LAB BLOOD ORDERABLES Fin al Result [facility] [address] [place] [address], * (ABNORMAL) Blood gas, venous (02/11/2025 11:13 PM EDT) pH, Liam 7.33 7.32 - 7.42 pH 02/11/2025 11:24 PM EDT [facility] pCO2, Liam 53(H) 41 - 51 mmHg 02/11/2025 11:24 PM EDT [facility] pO2, Liam 35 25 - 40 mmHg 02/11/2025 11:24 PM EDT [facility] HCO3, Venous 24.9 22.0 - 26.0 mmol/L 02/11/2025 11:24 PM EDT [facility] O2 Sat, Liam 59.7 % 02/11/2025 11:24 PM EDT [facility] Base Excess, Liam 1.2 -2.0 - 2.0 mmol/L 02/11/2025 11:24 PM EDT [facility] Blood Venous blood specimen / Unknown Venipuncture / Unknown 02/11/2025 11:13 PM EDT 02/11/2025 11:19 PM EDT Joanna GARCIA LAB BLOOD ORDERABLES Fin al Result [facility] [address] [place] [address], * Rapid strep A screen (01/31/2025 4:10 AM EDT) Pathologist [facility] Strep A Ag Negative Negative, Invalid 01/31/2025 5:29 AM EDT [facility] Comment:Refer to Throat Cult ure. Swab Structure of anterior region of neck / Unknown Non-blood Collection / Unknown 01/31/2025 4:10 AM EDT 01/31/2025 4:36 AM EDT us Severo Cha MD LAB MICROBIOLOGY - GENERAL ORDERABLES Final Result [facility] [address] [place] [address], [place] [phone] * Culture throat (01/31/2025 4:10 AM EDT) [facility] Culture, Throat No pathogens isolated. 02/02/2025 9:10 AM EDT [facility] Swab Structure of anterior region of neck / Unknown Non-blood Collection / Unknown 01/31/2025 4:10 AM EDT 01/31/2025 4:36 AM EDT us Severo Cha MD LAB MICROBIOLOGY - GENERAL ORDERABLES Final Result Performing Organization Address [facility]/ZIP Co de Phone Number [facility] [address] [place] [address], [place] [phone] * (ABNORMAL) Basic metabolic panel (01/31/2025 12:33 AM EDT) [facility] Sodium 139 133 - 145 mmol/L LAB CHEMISTRY METHOD 01/31/2025 1:27 AM EDT [facility] Potassium 4.5 3.5 - 5.5 mmol/L LAB CHEMISTRY METHOD 01/31/2025 1:27 AM EDT [facility] Chloride 104 96 - 110 mmol/L LAB CHEMISTRY METHOD 01/31/2025 1:27 AM EDT [facility] CO2 27 21 - 32 mmol/L LAB CHEMISTRY METHOD 01/31/2025 1:27 AM EDT [facility] Anion Gap 8 3 - 11 LAB CHEMISTRY METHOD 01/31/2025 1:27 AM EDT [facility] Glucose 104(H) 70 - 100 mg/dL LAB CHEMISTRY METHOD 01/31/2025 1:27 AM EDT [facility] BUN 24 5 - 25 mg/dL LAB CHEMISTRY METHOD 01/31/2025 1:27 AM EDT [facility] Creatinine 1.09 0.50 - 1.10 mg/dL LAB CHEMISTRY METHOD 01/31/2025 1:27 AM EDT [facility] eGFR 50(L) >=60 mL/min/1. 73m2 LAB CHEMISTRY METHOD 01/31/2025 1:27 AM EDT [facility] Comment:Calculation based on the Chronic Kidney Disease Epidemiology Collaboration (CKD-EPI) equation refit without adjustment for race. BUN/Creatinine Ratio 22.0 LAB CHEMISTRY METHOD 01/31/2025 1:27 AM EDT [facility] Calcium 9.0 8.5 - 10.5 mg/dL LAB CHEMISTRY METHOD 01/31/2025 1:27 AM EDT [facility] Blood Venous blood specimen / Unknown Venipuncture / Unknown 01/31/2025 12:33 AM EDT 01/31/2025 12:55 AM EDT Severo Cha MD LAB BLOOD ORDERABLES Final Result [facility] [address] [place] [address], * (ABNORMAL) Hemoglobin A1c (09/04/2024 9:10 AM EST) Hemoglobin A1C 8.5(H) <6.5 % LAB CHEMISTRY METHOD 09/04/2024 5:11 PM EST [facility] Mean Bld Glu Estim. 197 mg/dL LAB CHEMISTRY METHOD 09/04/2024 5:11 PM EST [facility] Blood Venous blood specimen / Unknown Venipuncture / Unknown 09/04/2024 9:10 AM EST 09/04/2024 9:26 AM EST us Laron Maldonado MD LAB BLOOD ORDERABLES Final Res ult [facility] LAB [address] [place] [address], * DOMINIC SCREENING DIGITAL (07/01/2019 4:51 PM EST) Anatomical Region Laterality Modality Mammography 07/01/2019 12:3 0 PM EST Narrative 07/01/2019 4:51 PM EST [facility] Diagnostic Imaging Department [address] [place] [address] Patient: KRISTIN VALDIVIAO.B./Age/Sex: 1940 - 78 - F Unit#: [id number] [facility] CLI Mnemonic/Ordering Site: [facility] Ordering Physician: GRISELDA VELAZQUEZ MD [facility] Screening Digital - 07/01/19 - 1317 INDICATION: SCREENING COMPARISON: No prior studies are available for comparison. TECHNIQUE: CC and MLO views of the breasts were obtained, using full field digital mammography with 3D tomosynthesis views in the MLO projection. Computer aided detection with the [employer] 7.2-H was employed. Patient reports 2 sisters [...] target date for the next mammogram. [id number] , [id number] Dictating Physician: BRODY SMITH MD Electronically Signed by: BRODY SMITH MD Dic Date/Time: 07/01/19 1641 Sign date/Time: 07/01/19 1658 Procedure Note Brody Smith - 07/13/2022 [facility] Diagnostic Imaging Department [address] [place] [address] Patient: EMRI MCGREGORKRISTIN/Age/Sex: 1940 - 78 - F Unit#: [id number] [facility]/Ordering Site: [facility] Ordering Physician: GRISELDA VELAZQUEZ MD [facility] Screening Digital - 07/01/19 - 1316 INDICATION: SCREENING COMPARISON: No prior studies are available for comparison. TECHNIQUE: CC and MLO views of the breasts were obtained, using full field digital mammography with 3D tomosynthesis views in the MLO projection. Computer aided detection with the iCAD SecondLook 7.2-H was employed. Patient reports 2 sisters [...] target date for the next mammogram. ([id number]) , [id number] Dictating Physician: BRODY SMITH MD Electronically Signed [...] Insurance [employer] MEDICARE MEDICA[place] - [place] 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 D/B/A: [facility] [place], [place] PCP - General Internal Medicine 10/30/24
--- OUTSIDE RECORDS SUMMARY | 2025-04-28 13:31 | XMS_ITS | Data Portability ---
Author Organization [place] [facility], Allergy Address [address] [place] [address] Care Team Providers Care Job Trainer Name Role Phone PHU IYER Primary Care Provider [phone] Assessment Encounter Date Assessment Date Assessment LastModified [...] Patient is medically cleared for amplification bilaterally. [email or web address] Not available 02/13/2025 14:16:44 Plan of Treatment Reminders Order Date Submit Date Provider Last Modified By Organization Details Last Modified Time Details Appointments Establish ed 15 2024 01:15P David Kaur, DO Not available Not available Not available Lab [...] Sensorineur al hearing loss of bilateral ears 468918447 Active 2024 ARCADIO ABARCA [address] [facility],[place] [address], [place], [phone], [facility] [place] 15:29:12 Bilateral tinnitus 0550376353865 Active 2024 MIKE ODEN [place], [facility] [address] [place] [address], [place], [phone], [facility] - [facility] [place] 13:48:34 Pain in throat 954933983 Active 2024 LUIZ PAEZ MD [address] [address], [place], [address], [facility] - [facility] [place] 14:18:55 Problem Notes None recorded. Procedures Surgical History Date Name Laterality Status Provider Name and Address Organization Details Recorded Time 02/13/2025 Comp Audio with Tymps - 76280 & 19536 completed MIKE ODEN [place], [facility] [address] [facility],[address], [address], [facility] [place] 02/13/2025 13:48:44 Imaging Results None recorded. Procedure Notes None recorded. Medical Equipment None Reported. Medications Name Sig Start Date Stop Date Status Note LastModified by Organization Details LastModified Time losartan 50 mg tablet TAKE 1 TABLET BY MOUTH DAILY active Not Available Not Available No t Available prednisone 10 mg tablet 02/13 completed Not [...] HFA 90 mcg/actuati on aerosol inhaler INHALE 2 PUFFS BY MOUTH EVERY 4 TO 6 HOURS NEEDED FOR SHORTNESS OF BREATH OR WHEEZING active Not Available Not Available No [...] Not Available Not Available Not Available cholecalcif miol (vitamin D3) 25 mcg (1,000 unit) capsule TAKE 1 CAPSULE BY MOUTH DAILY active [...] Updated DateTime 02/13/2025 160.02 cm 23.4 kg/m2 44406.19 g AMILCAR GOOD [place] [facility] 02/13/2025 14:08:05 Social History None recorded. Functional Status None recorded. Mental Status None recorded. Family History Nothing Reported. Medical History No medical history recorded. Gynecological HistoryNo gynecological history recorded. Obstetrics History GPAL:G 0 P 0 0 0 0 Past Encounters Encounter ID Performer Location Encounter Start Date Encounter Closed Date Diagnosis/Indication Diagnosis SNOMED-CT Code Diagnosis ICD10 Code Diagnosis IMO Codes Diagnosis Note [id number] LUIZ PAEZ MD [facility] of [address] [address] 02/13/2025 13:06:35 02/13/2025 14:23:48 Sensorineural hearing loss of bilateral ears 566387466 H90.3 155171 Audiologic al evaluation results:Ri ght ear:Normal hearing sloping to a mild to moderate SNHL with good word recognitio n.Left ear:Normal hearing sloping to a mild to moderately severe SNHL with good word recognitio n. Tympanomet ry:Right Ear:Type ALeft Ear:Type A Bilateral tinnitus 58773 89412 102 H93.13 858675 Pain in throat 378530157 R07.0 60102 Patient noting 8 months of throat pain. I will set up an appointmen t with one of my partners for further evaluation and possible fiberoptic examinatio n of the hypopharyn x and larynx. [id number] ARCADIO ABARCA [facility] - [facility] 100 [facility] 100 [place] [address] 03/07/2025 14:39:10 03/12/2025 05:37:07 Sensorineural hearing loss of bilateral ears 363408712 H90.3 [id number] Health Concerns Section Related Observation LastModified by Organization Detai ls LastModified Time None Recorded Concern Status LastModified by Organization Details LastModified Time None Recorded Advance Directives Directive None Recorded Payers Insurance Date Sequence Insurance Name Policy Number Policy Franco Covered Member ID Franco Member ID Guarantor Name 03/07/2025 1 [facility] (MEDICARE REPLACEMENT/A DVANTAGE - PPO) [id number] Kristin Stanton Villagomez [id number] Kristin Stanton Villagomez 05/07/2024 1 [place]MEDICARE[place] Kristin Stanton Villagomez [id number] Kristin Stanton Villagomez 05/07/2024 1 [place] (MEDICARE) Kristin Stanton Villagomez [id number] D Kristin Stanton Villagomez Notes Date Note Type Note Provider Name and Address Organization Details Recorded Time 02/13/2025 text/html 84-year-old female with type 2 diabetes, chronic kidney disease stage III, COPD, and paroxysmal atrial fibrillation. She uses a walker. Patient referred for evaluation of her ears.Patient comes in for evaluation of hearing loss. Patient has been noticing difficulty hearing in a variety of different listening environments, particularly exacerbated by background noise. Hearing loss has been gradual over a period of 20 years. Patient notes nonlocalizing tinnitus. No history of excessive noise exposure. Patient comes in for audiometric testing and discussion of possible remedies for hearing loss. Patient also has been noticing some localized neck pain on the left for about 8 months. No hemoptysis or dysphagia. Today's visit carried out with site interpreter LUIZ PAEZ MD [address] [facility],[address] [address], [place], [address], [facility] - [facility] 02/13/2025 14:20:40 03/07/2025 text/html Pt is here today with daughter. Pt is a new user of hearing aids. Discussed type, technology levels, and manufacturers of hearing aids. Type of phone: no smart phone She has an [facility] benefit that they would like to take advantage of. I gave her and her daughter a copy of her audiogram and the number for [facility] so they can find a provider. ARCADIO ABARCA [address] [facility],[address] [address] [address], [place], [address], [facility] - [facility] 03/07/2025 15:29:23 OBGyn Episode No OBEpisode recorded.
--- OUTSIDE RECORDS SUMMARY | 2025-04-28 13:31 | XMS_ITS | Encounter Summary ---
Author Organization [facility]. Address [address] [address] Phone Care Team Providers Care Inside Tester Name Role Phone Pam Wills MD Primary Care Provider Encounter Details Date Type Department Care Team (Late st Contact Info) Description 02/12/2025 Office Communication [facility] [address] [address] Monica Sagastume [address] [phone] Social History Tobacco Use Types Packs/Day Years [...] Needs appt with me in 2-3 wks--in [facility] office--pls call and arrange--thx documented in this encounter Plan of Treatment Upcoming Encounters Date Type Department Care Team (Late st Contact Info) Description 08/06/2025 2:30 PM EST Office Visit [facility] [place], [address] [place] [address] Rufus Caal, [address] [place] [id number] documented as of this encounter Visit Diagnoses Not on filedocumented in this encounter Care Teams Inside Tester Relationship Specialty Start Date End Date Pam Wills MD [address] [facility] [address] [place], [place] PCP - General Internal Medicine 05/11/21 documented as of this encounter
--- OUTSIDE RECORDS SUMMARY | 2025-04-28 13:31 | XMS_ITS | Clinical Summary ---
Author Organization [facility] Address [address] [place] [address] Care Team Providers Care Shorer Name Role Phone Pam Wills MD Primary [...] age to complete this topic Care Teams Shorer Relationship Specialty Start Date End Date Pam Wills MD 2 [facility] , [address] [facility] Associ D/B/A: [facility] [place] [address] PCP - General Internal Medicine 02/02/22
--- OUTSIDE RECORDS SUMMARY | 2025-04-28 13:31 | XMS_ITS | Clinical Summary ---
Author Organization [facility] Address [address] [place] [phone] Phone Care Team Providers Care Patient Transition Specialist Name Role Phone Pam Wills MD Primary Care Provider [phone] Allergies No known active allergies Medications Trulicity [...] 1 (one) time each day 05/08/2021 Active ALBUTEROL IN Inhale Active apixaban (ELIQUIS) [...] Visit [facility] [address] [place] [address] Rufus Caal DO Stage 3a chronic kidney disease (HCC) (Primary Dx); Type 2 diabetes mellitus with diabetic chronic kidney disease (HCC); Persistent proteinuria; Hypertension 03/10/2025 Documentation Only [facility] [address] [place] [address] Adrian Tsang [place] 02/20/2025 1:30 PM EDT Office Visit [facility] [address] [address] Jaylon Barreto MD Stage 3a chronic kidney disease (HCC) (Primary Dx); Type 2 diabetes mellitus with diabetic chronic kidney disease (HCC); Renal osteodystrophy 02/12/2025 Office Communication [facility] [place] [address] [phone] Monica Sagastume from Last 3 Months Immunizations [...] Visit [facility] [place], [address] [place] [address] Rufus Caal, [address] [facility] [place] [phone] Health Maintenance Due Date Last Done Comments [...] us Historical Provider LAB BLOOD ORDERABLES Lesa montelongo Result from Last 3 Months or Most Recently Relevant to Health Maintenance Insurance [facility] Medicare [facility] Medicare Medicare Care Teams Patient Transition Specialist Relationship Specialty Start Date End Date Pam Wills MD [address] [facility] [address] [place] [address] PCP - General Internal Medicine 05/11/21
== END 2025-04-28 13:27 | disposition home or self-care (01) ==
PROVIDERS: PCP Internal Medicine; Visit Provider Nurse Practitioner Family
DX: J06.9 Acute upper respiratory infection, unspecified (principal)

== ENCOUNTER 2025-04-28 13:26 | Outpatient (REF) | payer MEDICARE, OTHER, MEDICAID, SELFPAY ==
[2025-04-29 08:35] LABS: Chlamydia pneumoniae PCR Not Detected (Not Detect.); Coronavirus 229E PCR Not Detected (Not Detect.); Coronavirus HKU1 PCR Not Detected (Not Detect.); Coronavirus NL63 PCR Not Detected (Not Detect.); Coronavirus OC43 PCR Not Detected (Not Detect.); RSV PCR Not Detected (Not Detect.); Rhino/Enterovirus PCR Not Detected (Not Detect.)
[2025-04-29 08:43] LABS: Influenza A H1 PCR Not Detected (Not Detect.); Influenza A H1-2009 PCR Not Detected (Not Detect.); Influenza A H3 PCR Not Detected (Not Detect.); SARS-CoV-2 PCR Not Detected (Not Detect.)
== END 2025-04-28 13:27 | disposition home or self-care (01) ==
LOC: HO.LAB 13:26
PROVIDERS: Visit Provider Nurse Practitioner Family
DX: J06.9 Acute upper respiratory infection, unspecified (principal)
CPT/HCPCS: 87633

== ENCOUNTER → 2025-04-28 13:29 | Outpatient (BNV) | payer MEDICARE, OTHER, MEDICAID, SELFPAY | PROVIDERS: PCP Internal Medicine; Visit Provider Radiology Diagnostic Radiology | DX: J44.9 Chronic obstructive pulmonary disease, unspecified (principal) | CPT/HCPCS: 71046 ==

== ENCOUNTER 2025-05-26 06:56 | Outpatient (REF) | payer MEDICARE, OTHER, SELFPAY ==
--- OUTSIDE RECORDS SUMMARY | 2025-05-21 14:45 | XMS_ITS | Encounter Summary ---
Author Organization [facility] Address [address] [place] [address] Care Team Providers Care Assistant Program Manager Name Role Phone Pam Montoya MD Primary Care Provider [phone] Reason for Visit * Reason Comments COPD F/u COPD Encounter Details Date Type Department Care Team ([facility] st Contact Info) Description 05/21/2025 3:45 PM EDT Office Visit Pulmonology - [address] [place] [address] Fco Parsons MD [address] [place] [phone] Asthma-COPD overlap syndrome (CMS/HCC V24, CMS/HCC V28) (Primary Dx); Cough, unspecified type Social History Tobacco Use Types Packs/Day Years [...] Sign Reading Time Taken Comments Blood Pressure 110/68 05/21/2025 3:46 PM EDT Pulse 98 05/21/2025 3:46 PM EDT Temperature 36.2 C (97.1 F) 05/21/2025 3:46 PM EDT Respiratory Rate 16 05/21/2025 3:46 PM EDT Oxygen Saturation 97% 05/21/2025 3:46 PM EDT Inhaled Oxygen Concentration - - Weight - - Height - - Body Mass Index - - documented in this encounter Functional Status * Are you deaf or do you have serious difficulty hearing? Answer Date of Assessment Author No 03/13/2025 6:25 PM EDT Arlene Fregoso RN * Are you blind or do you have serious difficulty seeing, even when wearing glasses? Answer Date of Assessment Author No 03/13/2025 6:25 PM EDT Arlene Fregoso RN * Do you have serious difficulty walking or climbing stairs? Answer Date of Assessment Author No 03/13/2025 6:25 PM EDT Arlene Fregoso RN * Do you have serious difficulty dressing or bathing? Answer Date of Assessment Author No 03/13/2025 6:25 PM EDT Arlene Fregoso RN * Because of a physical, mental, or emotional condition, do you have serious difficulty doing errandsalone such as visiting the doctor? Answer Date of Assessment Author No 03/13/2025 6:25 PM EDT Arlene Fregoso RN documented as of this encounter Mental Status * Because of a physical, mental, or emotional condition, do you have serious difficulty concentrating, remembering, or making decisions? (5 years old or older) Answer Entry Date Author No 03/13/2025 6:25 PM EDT Arlene Fregoso RN documented in this encounter Ordered Prescriptions Prescription Sig Dispense Quantity Refills Last Filled Start Date End Date fluticasone-umecli dinium-vilanterol (Trelegy Ellipta) 200-62.5-25 mcg inhaler Inhale 1 puff (200 mcg total) by mouth 1 (one) time each day. Rinse mouth with water after use to reduce aftertaste and incidence of candidiasis. Do not swallow. 1 each 12 05/21/2025 documented in this encounter Progress Notes * Fco Parsons MD - 05/21/2025 3:45 PM EDT ADULT PULMONARY CONSULT CHIEF COMPLAINT or REASON FOR CONSULTATION: COPD (F/u COPD) HISTORY OF PRESENT ILLNESS: Kristin Villagomez is a 84 y.o. years old, female with a history of asthma, Afib. I last saw her 6 months ago, the patient had several ER visits. The last visit was 1 week ago when she was diagnosed with rhino enterovirus. The patient was sent home on prednisone 40 mg daily daily x 5 days, she only took 1 dose due to concern about hyperglycemia. She is here today due to increasing shortness of breath and weakness. The patient has no fever or purulent sputum, she does have headache chest pain and palpitation. Her symptoms are worse than last week when she left the ER. She hasbeen using her nebulizer at home. I saw her 2 weeks ago, I sent her to the ER when her heart rate was 130. She was more dyspneic at that time. When she got to the ER her heart rate stabilized. She was sent home on regular medication Breo and did not get any antibiotics or steroids. She did get a chest CT angiogram that showed no pulm embolism ALLERGIES: Current Allergies[1] ACTIVE MEDICATIONS: Medications Taking[2] PROVIDER ATTESTS THAT THE MEDICATION LIST WAS OBTAINED, REVIEWED AND UPDATED. REVIEW OF SYSTEMS: GENERAL: No wt lost or fever ENT: +snoring Eye: RESPIRATORY: + cough, wheezing and dyspnea CARDIOVASCULAR: No chest pain, leg swelling or palpitations GI: No abdominal discomfort, MUSCULOSKELETAL: +backpain HEMATOLOGY/LYMPHOLOGY No prolonged bleeding, easy bruisability ENDOCRINE: + DM NEURO: No focal weakness : Psych: + anxiety PAST MEDICAL HISTORY: Patient Active Problem List Diagnosis Date Noted Paroxysmal atrial fibrillation ([facility] V24, [facility] V28) 10/31/2024 Chest pain 10/30/2024 Bacterial pneumonia 09/06/2024 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 ([facility] V24, [facility] V28) 05/03/2017 Hyperlipidemia 05/03/2017 Hypertension 05/03/2017 Allergic rhinitis 04/25/2017 Asthma-COPD overlap syndrome ([facility] V24, [facility] V28) 04/25/2017 Adrenal adenoma 10/21/2016 Mass of colon 08/22/2016 Anxiety 10/09/2015 Insomnia 10/09/2015 Arthritis 05/01/2015 CAD (coronary artery disease) 05/01/2015 Surgical History[3] FAMILY HISTORY: Family History[4] OCCUPATION OR OCCUPATION EXPOSURE: SOCIAL HISTORY Social [...] older 05/01/2015 PHYSICAL EXAM: Visit Vitals BP 110/68 (BP Location: Left arm, Patient Position: Sitting, BP Cuff Size: Adult) Pulse 98 Temp 36.2 ??C (97.1 ??F) (Temporal) Resp 16 SpO2 97% OB Status Postmenopausal Smoking Status Never APPEARANCE: Alert and in no acute distress. Here with daughter EYES: Conjunctiva and sclera normal. [...] CARDIOPULMONARY TEST: Last Pulmonary function Test showed: 02/2023 Last Pulmonary function Test showed: Impression FEV1/FVC 53%. FEV1 0.87 and 51%. FVC 70%. No bronchodilator response. TLC 85%. RV 106%. DLCO 56%. Shape of flow volume loop show neither intrathoracic nor extrathoracic obstruction. Moderately severe obstruction. No restriction. When adjusted no decrease in diffusion. RADIOLOGIST IMAGING:FINDINGS: No central pulmonary embolism. The heart is within normal limits in size. There is no pericardial effusion. The thoracic aorta is normal in caliber. Small hiatal hernia. Right thyroid nodule. No mediastinal mass. Reticular nodular opacities peripheral predominance scattered throughout the lungs with scarring atthe right middle lobe and lingula. There are no pleural effusions. The visualized portion of the upper abdomen demonstrates no acute findings however technique was not optimized for evaluation for more subtle lesions.Stable right adrenal nodule. The included skeletal structures are within normal limits for technique. IMPRESSION: 1. No central pulmonary embolism. 2. Reticular nodular opacities peripheral predominance scattered throughout the lungs with scarringat the right middle lobe and lingula. Findings are nonspecific but can be seen in the setting of atypical infection such as Mycobacterium avium complex. ASSESSMENT: ICD-10-CM ICD-9-CM 1. Asthma-COPD overlap syndrome (CMS/HCC V24, CMS/HCC V28) J44.89 493.20 2. Cough, unspecified type R05.9 786.2 PLAN: The patient had moderate severe COPD based on FEV1 of 51%. I will change her Advair to Trelegy for triple therapy. The patient has been in the ER several times for distress. Her heart rate today is 98. The recent CT angio did not show any worsening parenchymal lung disease - Follow up with Pam Montoya MD for the other co-morbilities. - I spend 31 Minutes on this visit. The patient was [...] to come back to see me in 4 mths for reevaluation after the test has been done or earlier if the patient needed. Thanks Pam Montoya MD for allowing me to have the opportunity to assist in the care of this patient. [1] No Known Allergies [2] Outpatient Medications Marked as Taking for the 05/21/25 encounter (Office Visit) with Fco Parsons MD Medication Sig Dispense Refill albuterol 2.5 mg /3 mL (0.083 %) nebulizer solution Take 3 mL (2.5 mg total) by nebulization every 6 (six) hours if needed for wheezing or shortness of breath. 75 mL 0 albuterol HFA (PROAIR HFA ; PROVENTIL HFA ; VENTOLIN HFA) 90 mcg/actuation inhaler Inhale 2 puffs by mouth every 6 (six) hours if needed for wheezing. 6.7 g 3 albuterol HFA (PROAIR HFA ; PROVENTIL HFA ; VENTOLIN HFA) 90 mcg/actuation inhaler Inhale 1-2 puffsby mouth every 4 (four) hours if needed for wheezing. 6.7 g 0 alendronate (FOSAMAX) 70 mg tablet Take 1 tablet (70 mg total) by mouth every 7 (seven) days. apixaban (ELIQUIS) 5 mg tablet Take 1 tablet (5 mg total) by mouth 2 (two) times a day. cholecalciferol (VITAMIN D-3) 25 mcg (1,000 unit) capsule Take 1 capsule (1,000 Units total) by mouth 1 (one) time each day. dulaglutide (Trulicity) 1.5 mg/0.5 mL pen injector injection Inject 0.5 mL (1.5 mg total) under theskin 1 (one) time per week. MONDAY fluticasone-salmeterol (ADVAIR DISKUS) 250-50 mcg/dose diskus inhaler Inhale 1 puff by mouth 2 (two) times a day. 1 gabapentin (NEURONTIN) 100 mg capsule Take 1 capsule (100 mg total) by mouth at bedtime. hydrOXYzine HCL (ATARAX) 25 mg tablet Take 1 tablet (25 mg total) by mouth every 8 (eight) hours ifneeded for anxiety. 30 tablet 0 isosorbide mononitrate (IMDUR) 60 mg 24 hr tablet Take 2 tablets (120 mg total) by mouth 1 (one) time each day. Do not crush or chew. 60 each 11 losartan (COZAAR) 25 mg tablet Take 1 [...] (eight) hours if needed for muscle spasms. umeclidinium (Incruse Ellipta) 62.5 mcg/actuation inhalation Inhale 1 puff by mouth 1 (one) time each day. 1 each 11 [3] Past Surgical History: Procedure Laterality Date BREAST LUMPECTOMY PROCEDURE: HISTORICAL BREAST LUMPECTOMY SHOULDER SURGERY PROCEDURE: HISTORICAL SHOULDER SURGERY [4] No family history on file. documented in this encounter Plan of Treatment Upcoming Encounters Date Type Department Care Team (Late st Contact Info) Description 06/17/2025 2:00 PM EST Office Visit Infectious Disease - [address] [place] [phone] Natalie Govea MD [address] [facility] 200 [place] [address] 08/25/2025 3:30 PM EST Office Visit Pulmonology - [place] [facility] 200 [place] [phone] Fco Parsons MD [address] [place] [phone] documented as of this encounter Visit Diagnoses Diagnosis Asthma-COPD overlap syndrome (CMS/HCC V24, CMS/HCC V28)- Primary Cough, unspecified type documented in this encounter Additional Health Concerns Infection Onset Date Last Indicated Resolved Time Enterovirus 05/03/2025 05/03/2025 Rhinovirus 05/03/2025 05/03/2025 documented as of this encounter Care Teams Assistant Program Manager Relationship Specialty Start Date End Date Pam Montoya MD [address] [facility] , [address] [facility] D/B/A: [facility] [place], [place] PCP - General Internal Medicine 10/30/24 documented as of this encounter
--- OUTSIDE RECORDS SUMMARY | 2025-05-26 07:00 | XMS_ITS | Encounter Summary ---
Author Organization [facility] Address [address] [facility] [place] [facility] 200 [place] [address] Phone Care Team Providers Care Boat And Plant Utility Supervisor Name Role Phone Pam Wills MD Primary Care Provider [phone] Encounter Details Date Type Department Care Team (Late Contact Info) Description 08/03/2021 Documentation Only [facility] [address] [facility] [address] [facility] 200 [place] [phone] Jaylon Barreto MD [address] [facility] [address] [place] [phone] Social History Tobacco Use Types Packs/Day Years [...] Visit [facility] [place], [address] [place] [address] Rufus Caal, DO [address] [facility] [place] [address] documented as of this encounter Visit Diagnoses Not on filedocumented in this encounter Care Teams Boat And Plant Utility Supervisor Relationship Specialty Start Date End Date Pam Wills MD [address] [facility] [address] [place], [place] PCP - General Internal Medicine 05/11/21 documented as of this encounter
--- OUTSIDE RECORDS SUMMARY | 2025-05-26 07:00 | XMS_ITS | Encounter Summary ---
Author Organization [facility] Address [address] [place] [address] Phone Care Team Providers Care Mental Health Aide Name Role Phone Pam Wills MD Primary Care Provider [phone] Encounter Details Date Type Department Care Team (Late Contact Info) Description 03/10/2025 Documentation Only [facility] [address] [place] [address] [place], [place] [address] [place] [address] Social History Tobacco Use Types [...] Visit [facility] [address] [place] [address] Rufus Caal [address] [place] [address] documented as of this encounter Visit Diagnoses Not on filedocumented in this encounter Care Teams Mental Health Aide Relationship Specialty Start Date End Date Pam Wills MD [address] [place], [place] PCP - General Internal Medicine 05/11/21 documented as of this encounter
--- OUTSIDE RECORDS SUMMARY | 2025-05-26 07:00 | XMS_ITS | Data Portability ---
Author Organization [place] [facility], All[facility] Address [address] [place] [address] Care Team Providers Care Floral Specialist Name Role Phone PHU IYER Primary Care Provider [phone] Assessment Encounter Date Assessment Date Assessment LastModified [...] Patient is medically cleared for amplification bilaterally. [email or web address] Not available 02/13/2025 14:16:44 Plan of Treatment [...] Sensorineur al hearing loss of bilateral ears 638352524 Active 2024 ARCADIO ABARCA [address] [facility],[address] [address], [place], [address], [facility] 15:29:12 Bilateral tinnitus [id number] Active 2024 MIKE ODEN [place], [facility] [address] [place] [address], [place], [address], [facility] - [facility] 13:48:34 Pain in throat 041196604 Active 2024 LUIZ PAEZ MD [address] [address], [place], [address], [facility] - [facility] 14:18:55 Problem Notes None recorded. Procedures Surgical History Date Name Laterality Status Provider Name and Address Organization Details Recorded Time 02/13/2025 Comp Audio with Tymps - 56180 & 93457 completed MIKE ODEN [place], [facility] [address] [facility],[address], [address], [facility] 02/13/2025 13:48:44 Imaging Results None recorded. Procedure [...] Updated DateTime 02/13/2025 160.02 cm 23.4 kg/m2 87003.19 g AMILCAR [facility] [place] [facility] 02/13/2025 14:08:05 Social History None recorded. Functional Status None recorded. Mental Status None recorded. Family History Nothing Reported. Medical History No medical history recorded. Gynecological HistoryNo gynecological history recorded. Obstetrics History GPAL:G 0 P 0 0 0 0 Past Encounters Encounter ID Performer Location Encounter Start Date Encounter Closed Date Diagnosis/Indication Diagnosis SNOMED-CT Code Diagnosis ICD10 Code Diagnosis IMO Codes Diagnosis Note [id number] LUIZ PAEZ MD [facility] [address] [address] 02/13/2025 13:06:35 02/13/2025 14:23:48 Sensorineural hearing loss of bilateral ears 932202219 H90.3 112745 Audiologic al evaluation results:Ri ght ear:Normal hearing sloping to a mild to moderate SNHL with good word recognitio n.Left ear:Normal hearing sloping to a mild to moderately severe SNHL with good word recognitio n. Tympanomet ry:Right Ear:Type ALeft Ear:Type A Bilateral tinnitus 44488 58167 102 H93.13 368846 Pain in throat 106949279 R07.0 09422 Patient noting 8 months of throat pain. I will set up an appointmen t with one of my partners for further evaluation and possible fiberoptic examinatio n of the hypopharyn x and larynx. [id number] ARCADIO ABARCA [place] [address] [facility] [address] [place] [address] 03/07/2025 14:39:10 03/12/2025 05:37:07 Sensorineural hearing loss of bilateral ears 032128282 H90.3 [id number] Health Concerns Section Related Observation LastModified by Organization Detai ls LastModified Time None Recorded Concern Status LastModified by Organization Details LastModified Time None Recorded Advance Directives Directive None Recorded Payers Insurance Date Sequence Insurance Name Policy Number Policy Franco Covered Member ID Franco Member ID Guarantor Name 03/07/2025 1 [facility] (MEDICARE REPLACEMENT/A DVANTAGE - PPO) [id number] Kristin Stanton Villagomez [id number] Kristin Stanton Villagomez 05/07/2024 1 [place] Kristin Stanton Villagomez [id number] Kristin Stanton Villagomez 05/07/2024 1 [place] Kristin Stanton Villagomez [id number] Kristin Stanton Villagomez Notes Date Note [...] or dysphagia. Today's visit carried out with port traffic manager LUIZ PAEZ MD [address] [facility],[address] [place] [address], [place], [address], [facility] - [facility] 02/13/2025 14:20:40 03/07/2025 text/html Pt is here [...] can find a provider. ARCADIO ABARCA [address] [facility],[place] [address], [place], [address], [facility] - [facility] 03/07/2025 15:29:23 OBGyn Episode No OBEpisode recorded.
--- OUTSIDE RECORDS SUMMARY | 2025-05-26 07:00 | XMS_ITS | Clinical Summary ---
Author Organization [facility] Address [address] [place] [address] Care Team Providers Care Business Representative Name Role Phone Pam Wills MD Primary [...] age to complete this topic Care Teams Business Representative Relationship Specialty Start Date End Date Pam Wills MD [address] [facility] , [address] [facility] MERYL Braga [address] PCP - General Internal Medicine 02/02/22
--- OUTSIDE RECORDS SUMMARY | 2025-05-26 07:00 | XMS_ITS | Clinical Summary ---
Author Organization [facility] Address [address] [place] [phone] Phone Care Team Providers Care Textile Engraver Name Role Phone Pam Wills MD Primary Care Provider [phone] Allergies No known active allergies Medications Trulicity [...] [facility] [address] [place] [address] Rufus Caal DO Stage 3a chronic kidney disease (HCC) (Primary Dx); Type 2 diabetes mellitus with diabetic chronic kidney disease (HCC); Persistent proteinuria; Hypertension 03/10/2025 Documentation Only [facility] [address] [place] [address] Adrian Tsang [place] from Last 3 Months Immunizations Immunization Administration [...] Visit [facility] [place], [address] [place] [address] Rufus Caal, [address] [facility] [place] [address] Health Maintenance Due Date Last Done Comments Diabetes: Ophthalmology Exam 05/11/2021 Diabetes: Pedal Pulse Checked 05/11/2021 Diabetes: Sensory Foot Exam 05/11/2021 Diabetes: Visual Foot Exam 05/11/2021 Diabetes: Hemoglobin A1C 12/02/2024 025, 09/04/2024, 06/05/2019, Additional history exists Influenza Vaccine (#1) 2025 05/29/2015 Pneumococcal Vaccine: [...] Most Recently Relevant to Health Maintenance Insurance [facility] Medicare [facility] [place] [address] [facility] Medicare Care Teams Textile Engraver Relationship Specialty Start Date End Date Pam Wills MD [address] [place] [address] PCP - General Internal Medicine 05/11/21
--- OUTSIDE RECORDS SUMMARY | 2025-05-26 07:00 | XMS_ITS | Clinical Summary ---
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 Active apixaban (ELIQUIS) 5 mg tablet Take 1 tablet (5 mg total) by mouth 2 (two) times a day. Active cholecalcifero l (VITAMIN D-3) 25 mcg (1,000 unit) capsule Take 1 capsule (1,000 Units total) by mouth 1 (one) time each day. 01/12/20 22 Active dulaglutide (Trulicity) 1.5 mg/0.5 mL pen injector injection Inject 0.5 mL (1.5 mg total) under the skin 1 (one) time per week. Monday12/10/19 21 Active gabapentin (NEURONTIN) 100 mg capsule Take 1 capsule (100 mg total) by mouth at bedtime. 11/12/19 20 Active metFORMIN (GLUCOPHAGE) 1,000 mg tablet Take 1 tablet (1,000 mg total) by mouth 2 (two) times a day with meals. 11/12/19 20 Active omeprazole (PriLOSEC) [address] capsule Take 1 capsule (20 mg total) by mouth 1 (one) time each day. 05/05/20 20 Active tiZANidine (ZANAFLEX) 2 mg tablet Take 1 tablet (2 mg total) by mouth every 8 (eight) hours if needed for muscle spasms. Active metoprolol succinate (TOPROL-XL) 100 mg 24 hr tabletIndicati ons:hypertensi on Take 1 tablet (100 mg total) by mouth 1 (one) time each day. Do not crush or chew. Active alendronate (FOSAMAX) 70 mg tablet Take 1 tablet (70 mg total) by mouth every 7 (seven) days. 08/22/19 25 Active rosuvastatin (CRESTOR) 10 mg tablet Take 1 tablet (10 mg total) by mouth 1 (one) time each day. 08/11/19 25 Active fluticasone-sa lmeterol (ADVAIR DISKUS) 250-50 mcg/dose diskus inhaler Inhale 1 puff by mouth 2 (two) times a day. 1 each 10/23/19 25 026 Active albuterol HFA (PROAIR HFA ; PROVENTIL HFA ; VENTOLIN HFA) 90 mcg/actuation inhaler Inhale 2 puffs by mouth every 6 (six) hours if needed for wheezing. 6.7 g 3 10/23/19 25 026 Active losartan (COZAAR) 25 mg tablet Take 1 tablet (25 mg total) by mouth 1 (one) time each day. 10/17/19 25 Active pioglitazone (ACTOS) 30 mg tablet Take 1 tablet (30 mg total) by mouth 1 (one) time each day. 10/17/19 25 Active metoprolol succinate (TOPROL-XL) 200 mg 24 hr tablet Take 0.5 tablets (100 mg total) by mouth daily. Active metoprolol tartrate (LOPRESSOR) 100 mg tablet Take 1 tablet (100 mg total) by mouth. Active albuterol HFA (PROAIR HFA ; PROVENTIL HFA ; VENTOLIN HFA) 90 mcg/actuation inhaler Inhale 1-2 puffs by mouth every 4 (four) hours if needed for wheezing. 6.7 g 02/01/20 25 Active isosorbide mononitrate (IMDUR) 60 mg 24 hr tablet Take 2 tablets (120 mg total) by mouth 1 (one) time each day. Do not crush or chew. 60 each 02/13/20 026 Active albuterol 2.5 mg /3 mL (0.083 %) nebulizer solutionIndica tions:Asthma, unspecified asthma severity, unspecified whether complicated, unspecified whether persistent Take 3 mL (2.5 mg total) by nebulization every 6 (six) hours if needed for wheezing or shortness of breath. 75 mL 05/03/20 026 Active hydrOXYzine HCL (ATARAX) 25 mg tablet Take 1 tablet (25 mg total) by mouth every 8 (eight) hours if needed for anxiety. 30 tablet 05/08/20 025 Active umeclidinium (Incruse Ellipta) 62.5 mcg/actuation inhalation Inhale 1 puff by mouth 1 (one) time each day. 1 each 05/09/20 Active fluticasone-um eclidinium-vladislav anterol (Trelegy Ellipta) 200-62.5-25 mcg inhaler Inhale 1 puff (200 mcg total) by mouth 1 (one) time each day. Rinse mouth with water after use to reduce aftertaste and incidence of candidiasis. Do not swallow. 1 each 05/21/20 Active predniSONE (DELTASONE) 20 mg tablet Take 2 (two) tablets once a day for a total of 40 mg for 5 days. Do not take if blood sugar is > 200 10 tablet 05/03/20 25 025 guaiFENesin (ROBITUSSIN) 100 mg/5 mL liquid Take 5-10 mL (100-200 mg total) by mouth every 4 (four) hours if needed for cough for up to 3 days. 60 mL 05/03/20 025 Discontinued dextromethorph an-guaiFENesin (MUCINEX DM) 30-600 mg per 12 hr tablet Take 1 tablet by mouth every 12 (twelve) hours for 3 days. Do not crush, chew, or split. 6 tablet 05/03/20 025 albuterol 2.5 mg /3 mL (0.083 %) nebulizer solutionIndica tions:Asthma, unspecified asthma severity, unspecified whether complicated, unspecified whether persistent Take 3 mL (2.5 mg total) by nebulization every 6 (six) hours if needed for wheezing. 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 Govea on November 2024 Diabetes mellitus type 2 wit h neurological manifestations ([facility] V24, [facility] V28) 05/03/2017 Hyperlipidemia 05/03/2017 Hypertension 05/03/2017 Allergic rhinitis 04/25/2017 Asthma-COPD overlap syndrome ([facility] V24, [facility] V28) 04/25/2017 Overview (04/03/2024): Last Assessment & [...] unspecified organism, unspecified acute renal failure type ([facility] V24, [facility] V28) 09/04/2024 09/06/2024 Encounters Date Type Department Care Team Description 05/21/2025 3:45 PM EDT Office Visit Pulmonology - [address] [place] [address] Fco Parsons MD Asthma-COPD overlap syndrome ([facility] V24, [facility] V28) (Primary Dx); Cough, unspecified type 05/08/2025 11:42 AM EDT - 05/08/2025 4:19 PM EDT Emergency [facility] Emergency [address] [place] [phone] Shey Cedeno MD Dyspnea, unspecified type (Primary Dx); Tachycardia; Mycobacterium avium complex (CMS/HCC V24, CMS/HCC V28); Dizziness; PVC (premature ventricular contraction); Anxiety; Palpitations; Cardiac arrhythmia, unspecified cardiac arrhythmia type Discharge Disposition: Home or Self Care 05/08/2025 10:45 AM EDT Office Visit Pulmonology - [place] [address] [phone] Fco Parsons MD Asthma-COPD overlap syndrome (CMS/HCC V24, [facility] V28) (Primary Dx); Wheezing; Tachycardia 05/02/2025 11:02 PM EDT - 05/03/2025 6:11 AM EDT [facility] Emergency [address] [place] [phone] Ruth Alford MD Rhinovirus (Primary Dx); Asthma, unspecified asthma severity, unspecified whether complicated, unspecified whether persistent Discharge Disposition: Home or Self Care 03/13/2025 4:52 PM EDT - 03/13/2025 9:14 PM EDT [facility] Emergency [address] [place] [phone] Ruth Alford MD Other chest pain (Primary [...] DX:Diabetes mellitus type 2 with neurological manifestations ([facility]) Hyperlipidemia 05/03/2017 DX:Hyperlipidemi a Hypertension 05/03/2017 [...] EDT Inhaled Oxygen Concentration - - Weight 59.8 kg (131 lb 12.8 oz) 025 11:16 AM EDT Height 157.5 cm (5' 2 ) 05/08/2025 11:1 6 AM EDT Body Mass Index 24.11 05/08/2025 11:16 AM EDT Plan of Treatment Upcoming Encounters Date Type Department Care Team (Late st Contact Info) Description 06/17/2025 2:00 PM EST Office Visit Infectious Disease - [address] [place] [phone] Natalie Govea MD [address] [facility] [address] [place] [address] 08/25/2025 3:30 PM EST Office Visit Pulmonology - [place] 175 [facility] [address] [place] [phone] Fco Parsons MD [address] [place] [phone] Health Maintenance Due Date Last Done Comments [...] 09/06/2024 Diabetes: Annual GFR (Glomerular Filtration Rate) 05/08/2026 05/08/2025, 05/02/2025, 03/13/2025, Additional history exists Hypertension/CHF/CAD Annual BMP Blood Test 05/08/2026 05/08/2025, 05/02/2025, 03/13/2025, Additional history exists Pneumococcal Vaccine: 50+ Years [...] Priority Date/Time Associated Diagnosis Comments ECG ANNOTATED 05/09/2025 CT ANGIO CHEST WO AND/OR W CONTRAST STAT 05/08/2025 2:16 PM EDT Dyspnea, unspecified type Tachycardia CT HEAD WO CONTRAST STAT 05/08/2025 2 :16 PM EDT URINALYSIS WITH REFLEX MICROSCOPIC STAT 05/08/2025 1:49 PM EDT URINALYSIS WITH REFLEX MICROSCOPIC STAT 05/08/2025 1:49 PM EDT TROPONIN I HIGH SENSITIVITY Timed 05/08/2025 1:42 PM EDT CBC WITH AUTO DIFFERENTIAL STAT 05/08/2025 12:16 PM EDT B-TYPE NATRIURETIC PEPTIDE STAT 05/08/2025 12:16 PM EDT MAGNESIUM STAT 05/08/2025 12:16 PM EDT LIPASE STAT 05/08/2025 12:16 PM EDT COMPREHENSIVE METABOLIC PANEL STAT 05/08/2025 12:16 PM EDT CBC AND DIFFERENTIAL STAT 05/08/2025 12:16 PM EDT TROPONIN I HIGH SENSITIVITY Timed 05/08/2025 12:16 PM EDT ECG 12-LEAD STAT 05/08/2025 11:48 AM EDT ECG ANNOTATED 05/05/2025 RESPIRATORY VIRUS PANEL MOLECULAR STUDY STAT 05/03/2025 3:47 AM EDT POCT GLUCOSE BLOOD Routine 05/03/2025 2: 11 AM EDT VENOUS BLOOD GAS STAT 05/03/2025 1:18 AM EDT TROPONIN I HIGH SENSITIVITY Timed 05/03/2025 12:43 AM EDT XR CHEST 2 VIEWS STAT 05/02/2025 9:57 PM EDT PROCALCITONIN Add-On 05/02/2025 9:48 PM EDT MAGNESIUM Add-On 05/02/2025 9:48 PM EDT CBC WITH AUTO DIFFERENTIAL STAT 05/02/2025 9:48 PM EDT TROPONIN I HIGH SENSITIVITY Timed 05/02/2025 9:48 PM EDT BASIC METABOLIC PANEL STAT 05/02/2025 9:48 PM EDT CBC AND DIFFERENTIAL STAT 05/02/2025 9:48 PM EDT ECG 12-LEAD STAT 05/02/2025 9:43 PM EDT [id number], RSV, FLU A AND B QUALITATIVE RT-PCR, INTERNAL LAB STAT 05/02/2025 9:36 PM EDT ECG ANNOTATED 03/14/2025 TROPONIN I HIGH SENSITIVITY [...] ECG 12-LEAD STAT 03/13/2025 3:34 PM EDT HEMOGLOBIN A1C Add-On 09/04/2024 9:10 AM EST DOMINIC SCREENING DIGITAL Routine 07/01/2019 4:51 PM EST Encounter for screening mammogram for malignant neoplasm of breast HM URINE ALBUMIN CREATININE RATIO Routine 06/05/2019 LIPID PANEL Routine 06/05/2019 from Last 3 Months or Most Recently Relevant to Health Maintenance Results * ECG-Annotated (05/09/2025) Only the most recent of3 resultswithin the time period is included. us Provider Onbase MD ECG ORDERABLES Final Result * CT Angio Chest wo and/or w Contrast (05/08/2025 2:16 PM EDT) Anatomical Region Laterality Modality Body Computed Tomogra phy 05/08/2025 3:20 PM EDT Impressions 05/08/2025 3:27 PM EDT 1. No central pulmonary embolism. 2. Reticular nodular opacities peripheral predominance scattered throughout the lungs with scarring at the right middle lobe and lingula. Findings are nonspecific but can be seen in the setting of atypical infection such as Mycobacterium avium complex. -------- FINAL REPORT -------- Dictated By: Antwan Delgado Dictated Date: 05/08/2025 15:20 ET Assigned Physician: Antwan Delgado Reviewed and Electronically Signed By: Antwan Delgado Signed Date: 05/08/2025 15:27 ET Workstation ID: [id number] Transcribed By: Self Edit Transcribed Date: 05/08/2025 15:20 ET Narrative 05/08/2025 3:27 PM EDT PROCEDURE: CT ANGIO CHEST INDICATION: SOB, tachycardia, rule out PE, other acute COMPARISON: None. TECHNIQUE: CT pulmonary angiogram performed following uneventful IV administration of ISOVUE contrast material with bolus timing technique from the thoracic inlet through the lung bases. 3-D multiplanar reformations were obtained by the technologist on an independent workstation. Life in Hi-Fi VCT dose reduction utilizing iterative reconstruction. Total exam DLP 214 (mGy-cm) FINDINGS: No central pulmonary embolism. The heart is within normal limits in size. There is no pericardial effusion. The thoracic aorta is normal in caliber. Small hiatal hernia. Right thyroid nodule. No mediastinal mass. Reticular nodular opacities peripheral predominance scattered throughout the lungs with scarring at the right middle lobe and lingula. There are no pleural effusions. The visualized portion of the upper abdomen demonstrates no acute findings however technique was not optimized for evaluation for more subtle lesions.Stable right adrenal nodule. The included skeletal structures are within normal limits for technique. Procedure Note Antwan Delgado MD - 05/08/2025 PROCEDURE: CT ANGIO CHEST INDICATION: SOB, tachycardia, rule out PE, other acute COMPARISON: None. TECHNIQUE: CT pulmonary angiogram performed following uneventful IVadministration of ISOVUE contrast material with bolus timing techniquefrom the thoracic inlet through the lung bases. 3-D multiplanar reformations were obtained by the technologist on anindependent workstation. Life in Hi-Fi VCT dose reduction utilizing iterative reconstruction. Total exam DLP 214 (mGy-cm) FINDINGS: No central pulmonary embolism. The heart is within normal limits in size. There is no pericardialeffusion. The thoracic aorta is normal in caliber. Small hiatal hernia. Right thyroid nodule. No mediastinal mass. Reticular nodular opacities peripheral predominance scattered throughoutthe lungs with scarring at the right middle lobe and lingula. There are no pleural effusions. The visualized portion of the upper abdomen demonstrates no acute findingshowever technique was not optimized for evaluation for more subtlelesions.Stable right adrenal nodule. The included skeletal structures are within normal limits for technique. IMPRESSION: 1. No central pulmonary embolism. 2. Reticular nodular opacities peripheral predominance scatteredthroughout the lungs with scarring at the right middle lobe and lingula.Findings are nonspecific but can be seen in the setting of atypicalinfection such as Mycobacterium avium complex. -------- FINAL REPORT -------- Dictated By: Antwan Delgado Dictated Date: 05/08/2025 15:20 ET Assigned Physician: Antwan Delgado Reviewed and Electronically Signed By: Antwan Delgado Signed Date: 05/08/2025 15:27 ET Workstation ID: [id number] Transcribed By: Self Edit Transcribed Date: 05/08/2025 15:20 ET us Shey Cedeno MD IM CT PROCEDURES Final Result * CT Head wo Contrast (05/08/2025 2:16 PM EDT) Only the most recent of2 resultswithin the time period is included. Anatomical Region Laterality Modality Head and Neck Computed Tomogra phy 05/08/2025 2:52 PM EDT Impressions 05/08/2025 2:52 PM EDT NO ACUTE INTRACRANIAL ABNORMALITY. -------- FINAL REPORT -------- Dictated By: Antwan Delgado Dictated Date: 05/08/2025 14:52 ET Assigned Physician: Antwan Delgado Reviewed and Electronically Signed By: Antwan Delgado Signed Date: 05/08/2025 14:52 ET Workstation ID: [id number] Transcribed By: Self Edit Transcribed Date: 05/08/2025 14:52 ET Narrative 05/08/2025 2:52 PM EDT PROCEDURE: HEAD CT INDICATION: dizziness TECHNIQUE: CT of the head without intravenous contrast. Multiplanar reformats. The examination was performed utilizing dose reduction techniques. Total DLP 716 COMPARISON: No priors available. FINDINGS: No acute territorial infarct, mass effect, or intracranial hemorrhage. No significant white matter disease No hydrocephalus. Visualized paranasal sinuses are clear. Mastoid air cells are clear. No calvarial fracture. Procedure Note Antwan Delgado MD - 05/08/2025 PROCEDURE: HEAD CT INDICATION: dizziness TECHNIQUE: CT of the head without intravenous contrast. Multiplanarreformats. The examination was performed utilizing dose reductiontechniques. Total DLP 716 COMPARISON: No priors available. FINDINGS: No acute territorial infarct, mass effect, or intracranial hemorrhage. No significant white matter disease No hydrocephalus. Visualized paranasal sinuses are clear. Mastoid air cells are clear. No calvarial fracture. IMPRESSION: NO ACUTE INTRACRANIAL ABNORMALITY. -------- FINAL REPORT -------- Dictated By: Antwan Delgado Dictated Date: 05/08/2025 14:52 ET Assigned Physician: Antwan Delgado Reviewed and Electronically Signed By: Antwan Delgado Signed Date: 05/08/2025 14:52 ET Workstation ID: [id number] Transcribed By: Self Edit Transcribed Date: 05/08/2025 14:52 ET Shey Cedeno MD [facility] CT PROCEDURES Final Result * Urinalysis with reflex microscopic (05/08/2025 1:49 PM EDT) Pathologist [facility] Specific [place] Urine 1.005 1.003 - 1.030 LAB URINALYSIS - AUTOMATED METHOD 05/08/2025 2:04 PM EDT [facility] pH, Urine 7.5 5.0 - 8.0 pH LAB URINALYSIS - AUTOMATED METHOD 05/08/2025 2:04 PM EDT [facility] Leukocytes, Urine Negative Negative LAB URINALYSIS - AUTOMATED METHOD 05/08/2025 2:04 PM EDT [facility] Nitrite, Urine Negative Negative LAB URINALYSIS - AUTOMATED METHOD 05/08/2025 2:04 PM EDT [facility] Protein, Urine Negative <=Trace mg/dL LAB URINALYSIS - AUTOMATED METHOD 05/08/2025 2:04 PM [facility] Glucose, Urine Negative Negative mg/dL LAB URINALYSIS - AUTOMATED METHOD 05/08/2025 2:04 PM [facility] Ketones, Urine Negative Negative mg/dL LAB URINALYSIS - AUTOMATED METHOD 05/08[facility]2025 [facility] Urobilinogen, Urine 0.2 0.2 - 1.0 mg/dL LAB URINALYSIS - AUTOMATED METHOD 05/08/2025 2:04 PM [facility] Bilirubin, Urine Negative Negative LAB URINALYSIS - AUTOMATED METHOD 05/08/2025 2:04 PM [facility] Blood, Urine Negative Negative LAB URINALYSIS - AUTOMATED METHOD 05/08/2025 2:04 PM T [facility] Urine Urine specimen obtained by clean catch procedure / Unknown Non-blood Collection / Unknown 05/08/2025 1:49 PM EDT 05/08/2025 1:57 PM EDT us Shey Cedeno MD LAB URINE ORDERABLES Final Resul t [facility] [address] [place] [address], * Troponin I high sensitivity (05/08/2025 1:42 PM EDT) Only the most recent of6 resultswithin the time period is included. [facility] High Sensitivity Troponin I 8 <=54 ng/L LAB CHEMISTRY METHOD 05/08/2025 2:41 PM EDT [facility] Blood Venous blood specimen / Unknown Venipuncture / Unknown 05/08/2025 1:42 PM EDT 05/08/2025 1:57 PM EDT Narrative [facility] - 05/08/2025 2:41 PM EDT High levels of biotin in samples may falsely decrease hsTroponin values. Use caution when interpreting hsTroponin results in patients taking biotin who exhibit renal impairment (eGFR <60) or in patients taking more than 20 mg/day of biotin. us Shey Cedeno MD LAB BLOOD ORDERABLES Final Resul t [facility] [address] [place] [address], * (ABNORMAL) CBC auto differential (05/08/2025 12:16 PM EDT) Only the most recent of3 resultswithin the time period is included. [facility] WBC 10.7 4.8 - 10.8 K/mcL LAB HEMETOLOGY METHOD 05/08/2025 12:53 PM EDT [facility] RBC 4.50 3.80 - 4.80 M/mcL LAB HEMETOLOGY METHOD 05/08/2025 12:53 PM EDT [facility] Hemoglobin 11.3(L) 11.5 - 16.0 g/dL LAB HEMETOLOGY METHOD 05/08/2025 12:53 PM EDT [facility] Hematocrit 35.1 35.0 - 47.0 % LAB HEMETOLOGY METHOD 05/08/2025 12:53 PM EDT [facility] MCV 78.5(L) 79.0 - 98.0 FL LAB HEMETOLOGY METHOD 05/08/2025 12:53 PM EDT [facility] MCH 25.3(L) 27.0 - 32.0 pcg LAB HEMETOLOGY METHOD 05/08/2025 12:53 PM [facility] MCHC 32.2 32.0 - 37.0 g/dL LAB HEMETOLOGY METHOD 05/08/2025 12:53 PM [facility] RDW 13.0 11.0 - 15.0 % LAB HEMETOLOGY METHOD 05/08/2025 12:53 PM T [facility] Platelets 307 130 - 400 K/mcL LAB HEMETOLOGY METHOD 05/08/2025 12:53 PM [facility] MPV 9.2 7.0 - 11.0 FL LAB HEMETOLOGY METHOD 05/08/2025 12:53 PM [facility] NRBC 0.0 <1.0 % LAB HEMETOLOGY METHOD 05/08/2025 12:53 PM [facility] NRBC Absolute 0.00 <0.10 K/mcL LAB HEMETOLOGY METHOD 05/08/2025 12:53 PM [facility] Neutrophils Relative 69.0 % LAB HEMETOLOGY METHOD 05/08/2025 12:53 PM [facility] Lymphocytes Relative 20.9 % LAB HEMETOLOGY METHOD 05/08/2025 12:53 PM [facility] Monocytes Relative 8.2 % LAB HEMETOLOGY METHOD 05/08/2025 12:53 PM [facility] Eosinophils Relative 0.7 % LAB HEMETOLOGY METHOD 05/08/2025 12:53 PM [facility] Basophils Relative 0.5 % LAB HEMETOLOGY METHOD 05/08/2025 12:53 PM [facility] Immature Granulocytes Relative 0.7 % LAB HEMETOLOGY METHOD 05/08/2025 12:53 PM EDT [facility] Neutrophils Absolute 7.41(H) 1.50 - 7.00 K/mcL LAB HEMETOLOGY METHOD 05/08/2025 12:53 PM EDT [facility] Lymphocytes Absolute 2.24 1.00 - 5.00 K/[facility] LAB HEMETOLOGY METHOD 05/08/2025 12:53 PM EDT [facility] Monocytes Absolute 0.88 0.20 - 1.00 K/[facility] LAB HEMETOLOGY METHOD 05/08/2025 12:53 PM EDT [facility] Eosinophils Absolute 0.07 0.00 - 0.50 K/[facility] LAB HEMETOLOGY METHOD 05/08/2025 12:53 PM EDT [facility] Basophils Absolute 0.05 0.00 - 0.20 K/[facility] LAB HEMETOLOGY METHOD 05/08/2025 12:53 PM EDT [facility] Immature Granulocytes Absolute 0.07(H) 0.00 - 0.03 K/[facility] LAB HEMETOLOGY METHOD 05/08/2025 12:53 PM EDT [facility] Blood Venous blood specimen / Unknown Venipuncture / Unknown 05/08/2025 12:16 PM EDT 05/08/2025 12:48 PM EDT us Shey Cedeno MD LAB BLOOD ORDERABLES Final Resul t [facility] [address] [place] [address], * B-type natriuretic peptide (05/08/2025 12:16 PM EDT) Only the most recent of2 resultswithin the time period is included. BNP 46 <=100 pcg/mL LAB CHEMISTRY METHOD 05/08/2025 1:21 PM EDT [facility] Blood Venous blood specimen / Unknown Venipuncture / Unknown 05/08/2025 12:16 PM EDT 05/08/2025 12:48 PM EDT us Shey Cedeno MD LAB BLOOD ORDERABLES Final Resul t [facility] [address] [place] [address], [place] [phone] * (ABNORMAL) Magnesium (05/08/2025 12:16 PM EDT) Only the most recent of3 resultswithin the time period is included. Magnesium 1.7(L) 1.9 - 2.6 mg/dL LAB CHEMISTRY METHOD 05/08/2025 1:18 PM EDT [facility] Blood Venous blood specimen / Unknown Venipuncture / Unknown 05/08/2025 12:16 PM EDT 05/08/2025 12:48 PM EDT us Shey Cedeno MD LAB BLOOD ORDERABLES Final Resul t Performing Organization Address [facility]/ZIP Co de Phone Number [facility] [address] [place] [address], [place] [phone] * (ABNORMAL) Lipase (05/08/2025 12:16 PM EDT) Only the most recent of2 resultswithin the time period is included. Lipase 82(H) 13 - 75 unit/L LAB CHEMISTRY METHOD 05/08/2025 1:18 PM EDT [facility] Blood Venous blood specimen / Unknown Venipuncture / Unknown 05/08/2025 12:16 PM EDT 05/08/2025 12:48 PM EDT us Shey Cedeno MD LAB BLOOD ORDERABLES Final Resul t Performing Organization Address City/[facility]/ZIP Co de Phone Number [facility] [address] [place] [address], [place] [phone] * (ABNORMAL) Comprehensive metabolic panel (05/08/2025 12:16 PM EDT) Only the most recent of2 resultswithin the time period is included. Sodium 136 133 - 145 mmol/L LAB CHEMISTRY METHOD 05/08/2025 1:18 PM [facility] Potassium 4.3 3.5 - 5.5 mmol/L LAB CHEMISTRY METHOD 05/08/2025 1:18 PM [facility] Chloride 102 96 - 110 mmol/L LAB CHEMISTRY METHOD 05/08/2025 1:18 PM [facility] CO2 29 21 - 32 mmol/L LAB CHEMISTRY METHOD 05/08/2025 1:18 PM [facility] Anion Gap 5 3 - 11 LAB CHEMISTRY METHOD 05/08/2025 1:18 PM [facility] Glucose 105(H) 70 - 100 mg/dL LAB CHEMISTRY METHOD 05/08/2025 1:18 PM [facility] BUN 23 5 - 25 mg/dL LAB CHEMISTRY METHOD 05/08/2025 1:18 PM [facility] Creatinine 1.27(H) 0.50 - 1.10 mg/dL LAB CHEMISTRY METHOD 05/08/2025 1:18 PM [facility] eGFR 42(L) >=60 mL/min/1. 73m2 LAB CHEMISTRY METHOD 05/08/2025 1:18 PM [facility] Comment:Calculation based on the Chronic Kidney Disease Epidemiology Collaboration (CKD-EPI) equation refit without adjustment for race. BUN/Creatinine Ratio 18.1 LAB CHEMISTRY METHOD 05/08/2025 1:18 PM [facility] Calcium 9.4 8.5 - 10.5 mg/dL LAB CHEMISTRY METHOD 05/08/2025 1:18 PM [facility] AST (SGOT) 9(L) 10 - 42 unit/L LAB CHEMISTRY METHOD 05/08/2025 1:18 PM EDT [facility] ALT (SGPT) 22 10 - 60 unit/L LAB CHEMISTRY METHOD 05/08/2025 1:18 PM EDT [facility] Alkaline Phosphatase 85 42 - 121 unit/L LAB CHEMISTRY METHOD 05/08/2025 1:18 PM EDT [facility] Total Protein 7.5 6.0 - 8.0 g/dL LAB CHEMISTRY METHOD 05/08/2025 1:18 PM EDT [facility] Albumin 4.0 3.2 - 5.0 g/dL LAB CHEMISTRY METHOD 05/08/2025 1:18 PM EDT [facility] Total Bilirubin 0.4 0.0 - 1.4 mg/dL LAB CHEMISTRY METHOD 05/08/2025 1:18 PM EDT [facility] Blood Venous blood specimen / Unknown Venipuncture / Unknown 05/08/2025 12:16 PM EDT 05/08/2025 12:48 PM EDT us Shey Cedeno MD LAB BLOOD ORDERABLES Final Resul t [facility] [address] [place] [address], * ECG 12 lead (05/08/2025 11:48 AM EDT) Only the most recent of4 resultswithin the time period is included. Ventricular Rate ECG 103 BPM GEMUSE Atrial Rate 103 BPM GEMUSE P-R Interval 168 ms GEMUSE QRS Duration 116 ms GEMUSE Q-T Interval 344 ms GEMUSE QTc 450 ms GEMUSE P Wave Wagram 84 degrees GEMUSE R Wagram 61 degrees GEMUSE T Wagram 59 degrees GEMUSE ECG Interpretation Sinus tachycardia with Premature supraventricular complexes Incomplete right bundle branch block When compared with ECG of 02-MAY-2025 21:43, Premature supraventricular complexes are now Present Confirmed by VIOLA GRAFF ([id number]) on 05/08/2025 9:11:20 PM GEMUSE 05/08/2025 11:4 8 AM EDT 05/08/2025 9:11 PM EDT us Shey Cedeno MD ECG ORDERABLES Final Result GEMUSE * (ABNORMAL) Respiratory virus panel molecular study (05/03/2025 3:47 AM EDT) Only the most recent of2 resultswithin the time period is included. Adenovirus Detection by PCR Not Detected Not Detected LAB MICROBIOLOGY METHOD 05/03/2025 5:23 AM EDT [facility] Influenza A PCR Not Detected Not Detected LAB MICROBIOLOGY METHOD 05/03/2025 5:23 AM EDT [facility] Influenza B PCR Not Detected Not Detected LAB MICROBIOLOGY METHOD 05/03/2025 5:23 AM EDT [facility] Coronavirus 229E Not Detected Not Detected LAB MICROBIOLOGY METHOD 05/03/2025 5:23 AM EDT [facility] Coronavirus HKU1 Not Detected Not Detected LAB MICROBIOLOGY METHOD 05/03/2025 5:23 AM EDT [facility] Coronavirus OC43 Not Detected Not Detected LAB MICROBIOLOGY METHOD 05/03/2025 5:23 AM EDT [facility] Coronavirus NL63 Not Detected Not Detected LAB MICROBIOLOGY METHOD 05/03/2025 5:23 AM EDT [facility] Parainfluenza Virus 1 Not Detected Not Detected LAB MICROBIOLOGY METHOD 05/03/2025 5:23 AM EDT [facility] Parainfluenza Virus 2 Not Detected Not Detected LAB MICROBIOLOGY METHOD 05/03/2025 5:23 AM EDT [facility] Parainfluenza Virus 3 Not Detected Not Detected LAB MICROBIOLOGY METHOD 05/03/2025 5:23 AM EDT [facility] Parainfluenza Virus 4 Not Detected Not Detected LAB MICROBIOLOGY METHOD 05/03/2025 5:23 AM EDT [facility] RSV PCR Not Detected Not Detected LAB MICROBIOLOGY METHOD 05/03/2025 5:23 AM EDT [facility] Human Metapneumovirus A and B Not Detected Not Detected LAB MICROBIOLOGY METHOD 05/03/2025 5:23 AM EDT [facility] Rhinovirus/Entero virus Detected(A ) Not Detected LAB MICROBIOLOGY METHOD 05/03/2025 5:23 AM EDT [facility] Bordetella pertussis Not Detected Not Detected LAB MICROBIOLOGY METHOD 05/03/2025 5:23 AM EDT [facility] Bordetella parapertussis Not Detected Not Detected LAB MICROBIOLOGY METHOD 05/03/2025 5:23 AM EDT [facility] Mycoplasma pneumo by PCR Not Detected Not Detected LAB MICROBIOLOGY METHOD 05/03/2025 5:23 AM EDT [facility] Chlamydia pneumoniae Not Detected Not Detected LAB MICROBIOLOGY METHOD 05/03/2025 5:23 AM EDT [facility] SARS COV-2 Not Detected Not Detected LAB MICROBIOLOGY METHOD 05/03/2025 5:23 AM EDT [facility] Swab Both anterior nares / Unknown Non-blood Collection / Unknown 05/03/2025 3:47 AM EDT 05/03/2025 4:22 AM EDT Narrative [facility] - 05/03/2025 5:23 AM EDT Testing was performed using the InVivioLink Respiratory Pathogen PCR Assay. All results must [...] that are below the limit of detection. Concetta GARCIA LAB MICROBIOLOGY - GENERAL O RDERABLES Final Result [facility] [address] [place] [address], [place] [phone] * (ABNORMAL) POCT Glucose, blood (05/03/2025 2:11 AM EDT) Glucose POCT 154(H) 70 - 100 mg/dL 05/03/2025 2:13 AM EDT [facility] Blood Capillary blood specimen / Unknown 05/03/2025 2:11 AM EDT 05/03/2025 2:13 AM EDT us Generic Provider Poct LAB POINT OF CARE TEST DOCKED DEVICE UNSOLICITED RESULTS Final Result [facility] [address] [place] [address], [place] [phone] * (ABNORMAL) Venous blood gas (05/03/2025 1:18 AM EDT) pH, Liam 7.35 7.32 - 7.42 pH 05/03/2025 1:27 AM EDT [facility] pCO2, Liam 48 41 - 51 mmHg 05/03/2025 1:27 AM EDT [facility] pO2, Liam 41(H) 25 - 40 mmHg 05/03/2025 1:27 AM EDT [facility] HCO3, Venous 24.8 22.0 - 26.0 mmol/L 05/03/2025 1:27 AM EDT [facility] O2 Sat, Liam 72.2 % 05/03/2025 1:27 AM EDT [facility] Base Excess, Liam 0.5 -2.0 - 2.0 mmol/L 05/03/2025 1:27 AM EDT [facility] Blood Venous blood specimen / Unknown Venipuncture / Unknown 05/03/2025 1:18 AM EDT 05/03/2025 1:23 AM EDT us Concetta GARCIA LAB BLOOD ORDERABLES Final R esult [facility] [address] [place] [address], * XR Chest 2 Views (05/02/2025 9:57 PM EDT) Only the most recent of2 resultswithin the time period is included. Anatomical Region Laterality Modality Body Radiographic Rosey ging 05/03/2025 8:14 AM EDT Impressions 05/03/2025 8:15 AM EDT FINDINGS/IMPRESSION: No pneumonia or pulmonary edema. No pleural effusion or pneumothorax. Cardiac silhouette is normal in size. Degenerative changes seen throughout the bones. Right rotator cuff repair bone anchors noted. -------- FINAL REPORT -------- Dictated By: JUSTIN MONCADA Dictated Date: 05/03/2025 08:14 ET Assigned Physician: JUSTIN MONCADA Reviewed and Electronically Signed By: JUSTIN MONCADA Signed Date: 05/03/2025 08:15 ET Workstation ID: [id number] Transcribed By: Self Edit Transcribed Date: 05/03/2025 08:14 ET Narrative 05/03/2025 8:15 AM EDT XR CHEST 2 VIEWS INDICATION: Dyspnea TECHNIQUE: XR CHEST 2 VIEWS COMPARISON: 03/13/2025 Procedure Note Justin Moncada MD - 05/03/2025 XR CHEST 2 VIEWS INDICATION: Dyspnea TECHNIQUE: XR CHEST 2 VIEWS COMPARISON: 03/13/2025 IMPRESSION: FINDINGS/IMPRESSION: No pneumonia or pulmonary edema. No pleural effusionor pneumothorax. Cardiac silhouette is normal in size. Degenerativechanges seen throughout the bones. Right rotator cuff repair bone anchorsnoted. -------- FINAL REPORT -------- Dictated By: JUSTIN MONCADA Dictated Date: 05/03/2025 08:14 ET Assigned Physician: JUSTIN MONCADA Reviewed and Electronically Signed By: JUSTIN MONCADA Signed Date: 05/03/2025 08:15 ET Workstation ID: [id number] Transcribed By: Self Edit Transcribed Date: 05/03/2025 08:14 ET Luis GARCIA IMG XR PROCEDURES Final Res ult * Procalcitonin (05/02/2025 9:48 PM EDT) Procalcitonin 0.03 <=0.16 ng/mL LAB CHEMISTRY METHOD 05/03/2025 11:13 AM EDT [facility] Blood Venous blood specimen / Unknown Venipuncture / Unknown 05/02/2025 9:48 PM EDT 05/02/2025 10:21 PM EDT Narrative [facility] - 05/03/2025 11:13 AM EDT Procalcitonin > 2.00 ng/ml: Procalcitonin Levels above 2.00 ng/ml, on the first day of ICU admission represent a high risk for progression to severe sepsis and/or septic shock. Procalcitonin < 0.50 ng/ml: Procalcitonin levels below 0.50 ng/ml on the first day of ICU admission represent a low risk for progression to severe sepsis and/or septic shock. Concentrations <0.5 ng/mL do not exclude an infection, on account of local ized infections (without systemic signs) which can be associated with such low concentrations, or a systemic infection in its initial stages (<6 hours). Furthermore, increased procalcitonin can occur without infection. PCT concentrations between 0.5 and 2.0 ng/mL should be interpreted taking into account the patient's history. It is recommended to retest PCT within 6-24 hours if any concentrations <2.0 ng/mL are obtained. us Concetta GARCIA LAB BLOOD ORDERABLES Final R esult [facility] [address] [place] [address], [place] [phone] * (ABNORMAL) Basic metabolic panel (05/02/2025 9:48 PM EDT) Sodium 139 133 - 145 mmol/L LAB CHEMISTRY METHOD 05/02/2025 10:45 PM [facility] Potassium 4.8 3.5 - 5.5 mmol/L LAB CHEMISTRY METHOD 05/02/2025 10:45 PM [facility] Chloride 106 96 - 110 mmol/L LAB CHEMISTRY METHOD 05/02/2025 10:45 PM [facility] CO2 27 21 - 32 mmol/L LAB CHEMISTRY METHOD 05/02/2025 10:45 PM [facility] Anion Gap 6 3 - 11 LAB CHEMISTRY METHOD 05/02/2025 10:45 PM [facility] Glucose 186(H) 70 - 100 mg/dL LAB CHEMISTRY METHOD 05/02/2025 10:45 PM [facility] BUN 23 5 - 25 mg/dL LAB CHEMISTRY METHOD 05/02/2025 10:45 PM [facility] Creatinine 1.15(H) 0.50 - 1.10 mg/dL LAB CHEMISTRY METHOD 05/02/2025 10:45 PM [facility] eGFR 47(L) >=60 mL/min/1. 73m2 LAB CHEMISTRY METHOD 05/02/2025 10:45 PM [facility] Comment:Calculation based on the Chronic Kidney Disease Epidemiology Collaboration (CKD-EPI) equation refit without adjustment for race. BUN/Creatinine Ratio 20.0 LAB CHEMISTRY METHOD 05/02/2025 10:45 PM [facility] Calcium 9.2 8.5 - 10.5 mg/dL LAB CHEMISTRY METHOD 05/02/2025 10:45 PM [facility] Blood Venous blood specimen / Unknown Venipuncture / Unknown 05/02/2025 9:48 PM EDT 05/02/2025 10:21 PM EDT us Luis GARCIA LAB BLOOD ORDERABLES Final Result Performing Organization Address [facility]/ZIP Co de Phone Number [facility] [address] [place] [address], * [id number], RSV, Influenza A and B qualitative RT-PCR (05/02/2025 9:36 PM EDT) [facility] Influenza A PCR Not Detected Not Detected LAB MICROBIOLOGY METHOD 05/02/2025 11:01 PM EDT [facility] Influenza B PCR Not Detected Not Detected LAB MICROBIOLOGY METHOD 05/02/2025 11:01 PM EDT [facility] RSV PCR Not Detected Not Detected LAB MICROBIOLOGY METHOD 05/02/2025 11:01 PM EDT [facility] SARS COV-2 Not Detected Not Detected LAB MICROBIOLOGY METHOD 05/02/2025 11:01 PM EDT [facility] Swab Both anterior nares / Unknown Non-blood Collection / Unknown 05/02/2025 9:36 PM EDT 05/02/2025 10:21 PM EDT Result [facility] [place] GARCIA LAB MICROBIOLOGY - GENERAL ORDERABLES Final Result Performing Organization Address [facility] Co de Phone Number [facility] [address] [place] [address], * (ABNORMAL) Hemoglobin A1c (09/04/2024 9:10 AM EST) [facility] Hemoglobin A1C 8.5(H) <6.5 % LAB CHEMISTRY METHOD 09/04/2024 5:11 PM EST [facility] Mean Bld Glu Estim. 197 mg/dL LAB CHEMISTRY METHOD 09/04/2024 5:11 PM EST [facility] Blood Venous blood specimen / Unknown Venipuncture / Unknown 09/04/2024 9:10 AM EST 09/04/2024 9:26 AM EST us Laron Maldonado MD LAB BLOOD ORDERABLES Final Res ult [facility] ([facility] [address] [place] [address], * DOMINIC SCREENING DIGITAL (07/01/2019 4:51 PM EST) Anatomical Region Laterality Modality Mammography 07/01/2019 12:3 0 PM EST Narrative 07/01/2019 4:51 PM EST [facility] Diagnostic Imaging Department [address] [place] [address] Patient: KRISTIN VALDIVIA D.O.B./Age/Sex: 1940 - 78 - F Unit#: [id number] [facility] CLI Mnemonic/Ordering Site: [facility] Ordering Physician: GRISELDA VELAZQUEZ MD [facility] Screening Digital - 07/01/19 - [id number] INDICATION: SCREENING COMPARISON: No prior studies are available for comparison. TECHNIQUE: CC and MLO views of the breasts were obtained, using full field digital mammography with 3D tomosynthesis views in the MLO projection. Computer aided detection with the Echometrix 7.2-H was employed. Patient reports 2 sisters [...] a target date for the next mammogram. [id number] / [id number]) , [id number] Dictating Physician: BRODY SMITH MD Electronically Signed by: BRODY MSITH MD Dic Date/Time: 07/01/19 1648 Sign date/Time: 07/01/19 1659 Procedure Note Brody Smith - 07/13/2022 [facility] Diagnostic Imaging Department [address] [place] [address] Patient: MERI MCGREGORKRISTINO.B./Age/Sex: 1940 - 78 - F Unit#: [id number] [facility]Ordering Site: [facility] Ordering Physician: GRISELDA VELAZQUEZ MD [facility] Screening Digital - 07/01/19 - 1316 INDICATION: SCREENING COMPARISON: No prior studies are available for comparison. TECHNIQUE: CC and MLO views of the breasts were obtained, using full field digital mammography with 3D tomosynthesis views in the MLO projection. Computer aided detection with the Echometrix 7.2-H was employed. Patient reports 2 sisters [...] a target date for the next mammogram. 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
[2025-05-26 08:26] LABS: Alanine Aminotransferase 18 U/L (0-31); Albumin Level 4.4 g/dL (3.5-5.0); Alkaline Phosphatase 75 U/L (39-117); Anion Gap 12 (12-20); Aspartate Amino Transferase 14 U/L (5-31); Blood Urea Nitrogen 25 mg/dL (9-16); Calcium 9.2 mg/dL (8.4-10.2); Carbon Dioxide 30 mmol/L (22-29); Chloride 102 mmol/L (96-108); Cholesterol 110 mg/dL (<200); Estimated Glomerular Filt Rate 39; HDL Cholesterol 51 mg/dL (>40); Potassium 4.8 mmol/L (3.3-5.1); Sodium 139 mmol/L (135-145); Total Protein 7.3 g/dL (6.5-8.0); Triglycerides 100 mg/dL (<150)
[2025-05-26 08:31] LABS: Microalbum/Creatinine Ratio Ur 117.3 ug/mg cr (<30)
== END 2025-05-26 06:57 | disposition home or self-care (01) ==
LOC: HO.LAB 06:56
PROVIDERS: PCP Internal Medicine; Visit Provider Internal Medicine
DX: I10 Essential (primary) hypertension (principal); E78.5 Hyperlipidemia, unspecified; E55.9 Vitamin D deficiency, unspecified; R80.9 Proteinuria, unspecified
CPT/HCPCS: 36415; 80053; 80061; 82043; 82306; 82570

== ENCOUNTER 2025-05-28 12:48 | Outpatient (REF) | payer MEDICARE, OTHER, SELFPAY ==
[2025-05-28 16:46] LABS: Resp Syncy Virus RNA Qual PCR NEGATIVE (Negative); SARS COV2 PCR INHOUSE NEGATIVE (Negative)
== END 2025-05-28 12:49 | disposition home or self-care (01) ==
LOC: HO.LNP 12:48
PROVIDERS: PCP Internal Medicine; Visit Provider Physician Assistant Medical
DX: R09.81 Nasal congestion (principal); R09.82 Postnasal drip
CPT/HCPCS: 87637; 99212

== ENCOUNTER 2025-05-28 12:48 | Outpatient (AMB) | payer MEDICARE, OTHER, SELFPAY ==
[2025-05-28 12:59] VITALS: BP 124/58; PULSE 78; TEMP 36.9; O2SAT 95; BMI 23.4
--- NOTE | 2025-05-28 12:59 | MHC.OFFWIV ---
Intake Vital Signs 05/28/25 12:59 Height 5 ft 3 in Weight 132 lb BMI 23.4 BP 124/58 L Blood Pressure Location Lt brachial Position Sitting Pulse 78 Pulse Source Pulse Oximeter Temp 98.5 F Temp Source Oral Pulse Oximetry (%) 95 Oxygen Delivery Method Room Air Intake Visit Reasons: EP Sore throat, congestion Intake Note: pt presents with sinus congestion, sore throat and coughing Patient Tobacco Use Status: Never used Tobacco Allergies amlodipine Adverse Reaction (Intermediate, Verified 05/28/25 13:04) leg edema empagliflozin (From Jardiance) Adverse Reaction (Verified 05/28/25 13:04) vaginal candidiasis Do you need a note to return to daycare/school/sports/work: No HPI HPI Comments History of Present Illness Details History - The patient is an 84-year-old [place] Islander female presenting with her daughter as her can capper for symptoms suggestive of sinusitis and an upper respiratory tract infection. - Symptoms began one week ago, characterized by nasal congestion and mucus production. - The patient denies fever and has not used any [id number] medications. - Throat discomfort is present, but no severe pain or additional symptoms are reported. - She has been having sinus pain and post nasal drip. - She denies sick contacts. travel or smoking. - She denies CP, SOB, abd pain, n/v/d. - She denies ARNOLD, ear pain, dizziness, abd pain, n/v/d. Physical Exam General: Cooperative, healthy appearing, comfortable and no acute distress Orientation/consciousness: Patient oriented x3 Limitations: No limitations Head: Normal to inspection Ears: Hearing grossly normal bilaterally, external ears normal and TM's normal bilaterally Nose: Normal external nose present, normal nares present, and no nasal discharge present. Face and sinus: Sinuses nontender to palpation. Mouth: Normal oral and palatal mucosa present and moist mucous membranes noted. Throat: Tonsils normal. Uvula is midline. Posterior oropharynx with erythema and no exudates. Neck: Normal visual inspection, full ROM. No lymphadenopathy noted. Respiratory: Clear to auscultation bilaterally. Normal respiratory effort, able to speak in complete sentences. No respiratory distress, not tachypneic, no tripod positioning and no use of accessory muscles. Cardiovascular: Regular rate and rhythm. Normal S1 and S2 Skin: No rashes or lesions noted Patient was informed and verbally consented to the use of an ambient scribe for clinic note documentation during this visit [facility] Medical History (Updated 04/28/25 @ 13:12 by Vita Rajan NP) Acute respiratory disease Type 2 diabetes mellitus with diabetic neuropathy COPD (chronic obstructive pulmonary disease) Left shoulder pain Hyperlipidemia LDL goal <100 Abnormal SPEP Vitamin D deficiency Osteoporosis Age related osteoporosis Physical exam Hypomagnesemia Atrial fibrillation with rapid ventricular response Urinary incontinence Abnormal EKG Screening for osteoporosis Neuropathy Microalbuminuria JONNY (obstructive sleep apnea) Left shoulder pain Anemia GERD (gastroesophageal reflux disease) Coronary artery disease Hypertension Type 2 diabetes mellitus with hyperglycemia Surgical History History of surgery on arm Hx of dilation and curettage Hx of breast biopsy Family History Mother Diabetes mellitus Father CAD (coronary artery disease) Sister Lymphoma Breast cancer Brother Colon cancer Social History Household Members: Family Housing: House Are you a primary health care coordinator to a significant other at home: No Do you presently have visiting nurse or other home services: Yes (insurance nurse) Alcohol intake: never Patient Tobacco Use Status: Never used Tobacco e-Cigarette/Vaping Use: Never Used Second Hand Smoke Exposure: No service: No Current occupational status: disabled Cognitive needs: No Hearing needs: No Vision needs: Yes Review of Systems Const All systems reviewed & are unremarkable except as noted in HPI and below Physical Exam Vital Signs: Last Vital Signs Temp 98.5 F 05/28/25 12:59 Pulse 78 05/28/25 12:59 BP 124/58 L 05/28/25 12:59 Pulse Ox 95 05/28/25 12:59 Oxygen Delivery Method Room Air 05/28/25 12:59 BMI result Body Mass Index 23.4 Assessment & Plan Assessment & Plan (1) Congestion of nasal sinus: Code(s): R09.81 - Nasal congestion Plan Most likely sinusitis vs covid vs flu vs RSV vs viral illness Plan - VSS, pt well appearing - Nasal spray and decongestant prescribed for relief. - Antibiotics initiated to treat possible bacterial cause. - Swab test conducted to exclude COVID-19, influenza, and RSV. - tylenol or motrin as needed - follow up with PCP - will call her with results Orders: Orders SARS-CoV2/FLU/RSV Today R09.89 - Other specified symptoms and signs involving the circulatory and respiratory systems Medications: New cetirizine-pseudoephedrine 5-120 mg ER 1 tab PO BID 14 tabs 0RF 7 days amoxicillin-pot clavulanate 875-125 mg 1 tab PO Q12H 14 tabs 0RF fluticasone propionate 50 mcg/actuation administer into each nostril 1 spray intranasal Q12H 16 grams 0RF Coding Level of Care Code Est Pt Level 3 (99051) Diagnoses Congestion of nasal sinus R09.81
--- OUTSIDE RECORDS SUMMARY | 2025-05-28 15:27 | XMS_ITS | Clinical Summary ---
Author Organization [facility] Address [address] [place] [address] Care Team Providers Care Technical Training Manager Name Role Phone Pam Wills MD [...] age to complete this topic Care Teams Technical Training Manager Relationship Specialty Start Date End Date Pam Wills MD [address] [facility] , [address] [facility] Physician Associ D/B/A: [facility] MERYL Braga [id number] PCP - General Internal Medicine 02/02/22
--- OUTSIDE RECORDS SUMMARY | 2025-05-28 15:27 | XMS_ITS | Clinical Summary ---
Author Organization [facility] Address [address] [place] [phone] Phone Care Team Providers Care Surgical Orderly Name Role Phone Pam Wills MD Primary Care Provider [phone] Allergies No known active allergies Medications Trulicity [...] Visit [facility] [address] [place] [address] Rufus Caal DO Stage 3a chronic kidney disease (HCC) (Primary Dx); Type 2 diabetes mellitus with diabetic chronic kidney disease (HCC); Persistent proteinuria; Hypertension 03/10/2025 Documentation Only [facility] [address] [place] [id number] Adrian Tsang MA from Last 3 Months [...] Visit [facility] [place], [address] [place] [address] Rufus Caal, [address] [place] [address] Health Maintenance Due Date Last [...] Most Recently Relevant to Health Maintenance Insurance [facility] Medicare [facility] Medicare Care Teams Surgical Orderly Relationship Specialty Start Date End Date Pam Wills MD [address] [place] [address] PCP - General Internal Medicine 05/11/21
--- OUTSIDE RECORDS SUMMARY | 2025-05-28 15:27 | XMS_ITS | Encounter Summary ---
Author Organization [facility] Address [address] [place] [address] Phone Care Team Providers Care Student Services Advisor Name Role Phone Pam Wills MD Primary Care Provider [phone] Encounter Details Date Type Department Care Team (Late Contact Info) Description 03/10/2025 Documentation Only [facility] [address] [place] [address] [place], [place] [address] [place] [address] Social History Tobacco Use Types [...] Visit [facility] [address] [place] [address] Rufus Caal [address] [place] [address] documented as of this encounter Visit Diagnoses Not on filedocumented in this encounter Care Teams Student Services Advisor Relationship Specialty Start Date End Date Pam Wills MD [address] [place], [place] PCP - General Internal Medicine 05/11/21 documented as of this encounter
--- OUTSIDE RECORDS SUMMARY | 2025-05-28 15:27 | XMS_ITS | Data Portability ---
Author Organization [facility], Allergy Address [address] [place] [id number] Care Team Providers Care Rubbish Collection Supervisor Name Role Phone PHU IYER Primary Care Provider [phone] Assessment Encounter Date Assessment Date Assessment LastModified [...] Patient is medically cleared for amplification bilaterally. [email or web address] Not available 02/13/2025 14:16:44 Plan of Treatment [...] Sensorineur al hearing loss of bilateral ears 026935053 Active 2024 ARCADIO ABARCA [address] [facility],[place] [address], [place], [address], [facility] [place] 15:29:12 Bilateral tinnitus 5803138900597 Active 2024 [place] ODEN [place], [facility] [address] [place] [address], [place], [address], [facility] [place] 13:48:34 Pain in throat 502266819 Active 2024 LUIZ PAEZ MD [address] [address], [place], [address], [facility] - [facility] [place] 14:18:55 Problem Notes None recorded. Procedures Surgical History Date Name Laterality Status Provider Name and Address Organization Details Recorded Time 02/13/2025 Comp Audio with Tymps - 86013 & 06433 completed MIKE ODEN [place], [facility] [address] [facility],[address], [address], [facility] [place] 02/13/2025 13:48:44 Imaging Results None recorded. Procedure [...] Updated DateTime 02/13/2025 160.02 cm 23.4 kg/m2 72611.19 g AMILCAR GOOD [facility] 02/13/2025 14:08:05 Social History None recorded. Functional Status None recorded. Mental Status None recorded. Family History Nothing Reported. Medical History No medical history recorded. Gynecological HistoryNo gynecological history recorded. Obstetrics History GPAL:G 0 P 0 0 0 0 Past Encounters Encounter ID Performer Location Encounter Start Date Encounter Closed Date Diagnosis/Indication Diagnosis SNOMED-CT Code Diagnosis ICD10 Code Diagnosis IMO Codes Diagnosis Note [id number] LUIZ PAEZ MD [facility] [address] [address] 02/13/2025 13:06:35 02/13/2025 14:23:48 Sensorineural hearing loss of bilateral ears 099913999 H90.3 000705 Audiologic al evaluation results:Ri ght ear:Normal hearing sloping to a mild to moderate SNHL with good word recognitio n.Left ear:Normal hearing sloping to a mild to moderately severe SNHL with good word recognitio n. Tympanomet ry:Right Ear:Type ALeft Ear:Type A Bilateral tinnitus 87984 93367 102 H93.13 461814 Pain in throat 726528733 R07.0 55784 Patient noting 8 months of throat pain. I will set up an appointmen t with one of my partners for further evaluation and possible fiberoptic examinatio n of the hypopharyn x and larynx. [id number] ARCADIO ABARCA [facility] - [facility] 100 [facility] 100 [place] [address] 03/07/2025 14:39:10 03/12/2025 05:37:07 Sensorineural hearing loss of bilateral ears [id number] H90.3 [id number] Health Concerns Section Related Observation LastModified by Organization Detai ls LastModified Time None Recorded Concern Status LastModified by Organization Details LastModified Time None Recorded Advance Directives Directive None Recorded Payers Insurance Date Sequence Insurance Name Policy Number Policy Franco Covered Member ID Franco Member ID Guarantor Name 03/07/2025 1 [facility] (MEDICARE REPLACEMENT/A DVANTAGE - PPO) [id number] Kristin Stanton Villagomez [id number] Kristin Stanton Villagomez 05/07/2024 1 [place] Kristin Stanton Villagomez [id number] Kristin Stanton Villagomez 05/07/2024 1 [place] Kristin Stanton Villagomez [id number] Kristin Stanton Villagomez Notes Date Note [...] or dysphagia. Today's visit carried out with florist's decorator LUIZ PAEZ MD [address] [facility],[address] [place] [address], [place], [address], [facility] - [facility] 02/13/2025 14:20:40 03/07/2025 text/html Pt is [...] find a provider. ARCADIO ABARCA [address] [facility],[address] [place] [address], [place], [address], [facility] - [facility] 03/07/2025 15:29:23 OBGyn Episode No OBEpisode recorded.
--- OUTSIDE RECORDS SUMMARY | 2025-05-28 15:27 | XMS_ITS | Encounter Summary ---
Author Organization [facility] Address [address] [facility] [address] [facility] [address] [place] [address] Phone Care Team Providers Care Nurse Private Duty Name Role Phone Pam Wills MD Primary Care Provider [phone] Encounter Details Date Type Department Care Team (Late Contact Info) Description 08/03/2021 Documentation Only [facility] [address] [facility] [address] [place] [phone] Jaylon Barreto MD [address] [facility] [address] [place] [phone] Social History Tobacco Use Types Packs/Day Years [...] Visit [facility], [address] [address] Rufus Caal, DO [address] [place] [address] documented as of this encounter Visit Diagnoses Not on filedocumented in this encounter Care Teams Nurse Private Duty Relationship Specialty Start Date End Date Pam Wills MD [address] [place], [place] PCP - General Internal Medicine 05/11/21 documented as of this encounter
--- OUTSIDE RECORDS SUMMARY | 2025-05-28 15:28 | XMS_ITS | Clinical Summary ---
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 Govea on November 2024 Diabetes mellitus type 2 wit h neurological manifestations ([facility] V24, [facility] V28) 05/03/2017 Hyperlipidemia 05/03/2017 Hypertension 05/03/2017 Allergic rhinitis 04/25/2017 Asthma-COPD overlap syndrome ([facility] V24, [facility] V28) 04/25/2017 Overview (04/03/2024): Last Assessment & [...] unspecified organism, unspecified acute renal failure type ([facility] V24, [facility] V28) 09/04/2024 09/06/2024 Encounters Date Type Department Care Team Description 05/21/2025 3:45 PM EDT Office Visit Pulmonology - [address] [place] [address] Fco Parsons MD Asthma-COPD overlap syndrome ([facility] V24, [facility] V28) (Primary Dx); Cough, unspecified type 05/08/2025 11:42 AM EDT - 05/08/2025 4:19 PM EDT Emergency [facility] Emergency [address] [place] [phone] Shey Cedeno MD Dyspnea, unspecified type (Primary Dx); Tachycardia; Mycobacterium avium complex (CMS/HCC V24, CMS/HCC V28); Dizziness; PVC (premature ventricular contraction); Anxiety; Palpitations; Cardiac arrhythmia, unspecified cardiac arrhythmia type Discharge Disposition: Home or Self Care 05/08/2025 10:45 AM EDT Office Visit Pulmonology - [place] [address] [phone] Fco Parsons MD Asthma-COPD overlap syndrome (CMS/HCC V24, CMS/[facility] V28) (Primary Dx); Wheezing; Tachycardia 05/02/2025 11:02 PM EDT - 05/03/2025 6:11 AM EDT [facility] Emergency [address] [place] [phone] Ruth Alford MD Rhinovirus (Primary Dx); Asthma, unspecified asthma severity, unspecified whether complicated, unspecified whether persistent Discharge Disposition: Home or Self Care 03/13/2025 4:52 PM EDT - 03/13/2025 9:14 PM EDT [facility] Emergency [address] [place] [phone] Ruth Alford MD Other chest pain (Primary [...] DX:Diabetes mellitus type 2 with neurological manifestations ([facility]) Hyperlipidemia 05/03/2017 DX:Hyperlipidemi a Hypertension 05/03/2017 DX:Hypertension [...] PM EST Office Visit Infectious Disease - [address] [place] [phone] Natalie Govea MD [facility] [address] [place] [address] 08/25/2025 3:30 PM EST Office Visit Pulmonology - [place] 175 [facility] [address] [place] [phone] Fco Parsons MD [address] [place] [phone] Health Maintenance Due Date Last Done [...] ECG 12-LEAD STAT 05/02/2025 9:43 PM EDT [id number], RSV, FLU A AND B QUALITATIVE RT-PCR, [...] Signed Date: 05/08/2025 15:27 ET Workstation ID: [id number] Transcribed By: Self Edit Transcribed Date: 05/08/2025 [...] by the technologist on an independent workstation. Poliglota VCT dose reduction utilizing iterative reconstruction. Total [...] obtained by the technologist on anindependent workstation. Poliglota VCT dose reduction utilizing iterative reconstruction. Total [...] Signed Date: 05/08/2025 15:27 ET Workstation ID: [id number] Transcribed By: Self Edit Transcribed Date: 05/08/2025 [...] Signed Date: 05/08/2025 14:52 ET Workstation ID: [id number] Transcribed By: Self Edit Transcribed Date: 05/08/2025 [...] Signed Date: 05/08/2025 14:52 ET Workstation ID: [id number] Transcribed By: Self Edit Transcribed Date: 05/08/2025 14:52 ET Shey Cedeno MD [facility] CT PROCEDURES Final Result * Urinalysis with reflex microscopic (05/08/2025 1:49 PM EDT) Pathologist [facility] [place] Urine 1.005 1.003 - 1.030 LAB URINALYSIS - AUTOMATED METHOD 05/08/2025 2:04 PM EDT [facility] pH, Urine 7.5 5.0 - 8.0 pH LAB URINALYSIS - AUTOMATED METHOD 05/08/2025 2:04 PM EDT [facility] Leukocytes, Urine Negative Negative LAB URINALYSIS - AUTOMATED METHOD 05/08/2025 2:04 PM EDT [facility] Nitrite, Urine Negative Negative LAB URINALYSIS - AUTOMATED METHOD 05/08/2025 2:04 PM EDT [facility] Protein, Urine Negative <=Trace mg/dL LAB URINALYSIS - AUTOMATED METHOD 05/08/2025 2:04 PM [facility] Glucose, Urine Negative Negative mg/dL LAB URINALYSIS - AUTOMATED METHOD 05/08/2025 2:04 PM [facility] Ketones, Urine Negative Negative mg/dL LAB URINALYSIS - AUTOMATED METHOD 05/08[facility]2025 [facility] Urobilinogen, Urine 0.2 0.2 - 1.0 mg/dL LAB URINALYSIS - AUTOMATED METHOD 05/08/2025 2:04 PM [facility] Bilirubin, Urine Negative Negative LAB URINALYSIS - AUTOMATED METHOD 05/08/2025 2:04 PM [facility] Blood, Urine Negative Negative LAB URINALYSIS - AUTOMATED METHOD 05/08/2025 2:04 PM T [facility] Urine Urine specimen obtained by clean catch procedure / Unknown Non-blood Collection / Unknown 05/08/2025 1:49 PM EDT 05/08/2025 1:57 PM EDT us Shey Cedeno MD LAB URINE ORDERABLES Final Resul t [facility] [address] [place] [address], * Troponin I high sensitivity (05/08/2025 1:42 PM EDT) Only the most recent of6 resultswithin the time period is included. [facility] High Sensitivity Troponin I 8 <=54 ng/L LAB CHEMISTRY METHOD 05/08/2025 2:41 PM EDT [facility] Blood Venous blood specimen / Unknown Venipuncture / Unknown 05/08/2025 1:42 PM EDT 05/08/2025 1:57 PM EDT Narrative [facility] - 05/08/2025 2:41 PM EDT High levels of biotin in samples may falsely decrease hsTroponin values. Use caution when interpreting hsTroponin results in patients taking biotin who exhibit renal impairment (eGFR <60) or in patients taking more than 20 mg/day of biotin. us Shey Cedeno MD LAB BLOOD ORDERABLES Final Resul t [facility] [address] [place] [address], * (ABNORMAL) CBC auto differential (05/08/2025 12:16 PM EDT) Only the most recent of3 resultswithin the time period is included. [facility] WBC 10.7 4.8 - 10.8 K/mcL LAB HEMETOLOGY METHOD 05/08/2025 12:53 PM EDT [facility] RBC 4.50 3.80 - 4.80 M/mcL LAB HEMETOLOGY METHOD 05/08/2025 12:53 PM EDT [facility] Hemoglobin 11.3(L) 11.5 - 16.0 g/dL LAB HEMETOLOGY METHOD 05/08/2025 12:53 PM EDT [facility] Hematocrit 35.1 35.0 - 47.0 % LAB HEMETOLOGY METHOD 05/08/2025 12:53 PM EDT [facility] MCV 78.5(L) 79.0 - 98.0 FL LAB HEMETOLOGY METHOD 05/08/2025 12:53 PM EDT [facility] MCH 25.3(L) 27.0 - 32.0 pcg LAB HEMETOLOGY METHOD 05/08/2025 12:53 PM [facility] MCHC 32.2 32.0 - 37.0 g/dL LAB HEMETOLOGY METHOD 05/08/2025 12:53 PM [facility] RDW 13.0 11.0 - 15.0 % LAB HEMETOLOGY METHOD 05/08/2025 12:53 PM T [facility] Platelets 307 130 - 400 K/mcL LAB HEMETOLOGY METHOD 05/08/2025 12:53 PM [facility] MPV 9.2 7.0 - 11.0 FL LAB HEMETOLOGY METHOD 05/08/2025 12:53 PM [facility] NRBC 0.0 <1.0 % LAB HEMETOLOGY METHOD 05/08/2025 12:53 PM [facility] NRBC Absolute 0.00 <0.10 K/mcL LAB HEMETOLOGY METHOD 05/08/2025 12:53 PM [facility] Neutrophils Relative 69.0 % LAB HEMETOLOGY METHOD 05/08/2025 12:53 PM [facility] Lymphocytes Relative 20.9 % LAB HEMETOLOGY METHOD 05/08/2025 12:53 PM [facility] Monocytes Relative 8.2 % LAB HEMETOLOGY METHOD 05/08/2025 12:53 PM [facility] Eosinophils Relative 0.7 % LAB HEMETOLOGY METHOD 05/08/2025 12:53 PM [facility] Basophils Relative 0.5 % LAB HEMETOLOGY METHOD 05/08/2025 12:53 PM [facility] Immature Granulocytes Relative 0.7 % LAB HEMETOLOGY METHOD 05/08/2025 12:53 PM EDT [facility] Neutrophils Absolute 7.41(H) 1.50 - 7.00 K/mcL LAB HEMETOLOGY METHOD 05/08/2025 12:53 PM EDT [facility] Lymphocytes Absolute 2.24 1.00 - 5.00 K/[facility] LAB HEMETOLOGY METHOD 05/08/2025 12:53 PM EDT [facility] Monocytes Absolute 0.88 0.20 - 1.00 K/[facility] LAB HEMETOLOGY METHOD 05/08/2025 12:53 PM EDT [facility] Eosinophils Absolute 0.07 0.00 - 0.50 K/[facility] LAB HEMETOLOGY METHOD 05/08/2025 12:53 PM EDT [facility] Basophils Absolute 0.05 0.00 - 0.20 K/[facility] LAB HEMETOLOGY METHOD 05/08/2025 12:53 PM EDT [facility] Immature Granulocytes Absolute 0.07(H) 0.00 - 0.03 K/[facility] LAB HEMETOLOGY METHOD 05/08/2025 12:53 PM EDT [facility] Blood Venous blood specimen / Unknown Venipuncture / Unknown 05/08/2025 12:16 PM EDT 05/08/2025 12:48 PM EDT us Shey Cedeno MD LAB BLOOD ORDERABLES Final Resul t [facility] [address] [place] [address], * B-type natriuretic peptide (05/08/2025 12:16 PM EDT) Only the most recent of2 resultswithin the time period is included. BNP 46 <=100 pcg/mL LAB CHEMISTRY METHOD 05/08/2025 1:21 PM EDT [facility] Blood Venous blood specimen / Unknown Venipuncture / Unknown 05/08/2025 12:16 PM EDT 05/08/2025 12:48 PM EDT us Shey Cedeno MD LAB BLOOD ORDERABLES Final Resul t [facility] [address] [place] [address], [place] [phone] * (ABNORMAL) Magnesium (05/08/2025 12:16 PM EDT) Only the most recent of3 resultswithin the time period is included. Magnesium 1.7(L) 1.9 - 2.6 mg/dL LAB CHEMISTRY METHOD 05/08/2025 1:18 PM EDT [facility] Blood Venous blood specimen / Unknown Venipuncture / Unknown 05/08/2025 12:16 PM EDT 05/08/2025 12:48 PM EDT us Shey Cedeno MD LAB BLOOD ORDERABLES Final Resul t Performing Organization Address [facility]/ZIP Co de Phone Number [facility] [address] [place] [address], [place] [phone] * (ABNORMAL) Lipase (05/08/2025 12:16 PM EDT) Only the most recent of2 resultswithin the time period is included. Lipase 82(H) 13 - 75 unit/L LAB CHEMISTRY METHOD 05/08/2025 1:18 PM EDT [facility] Blood Venous blood specimen / Unknown Venipuncture / Unknown 05/08/2025 12:16 PM EDT 05/08/2025 12:48 PM EDT us Shey Cedeno MD LAB BLOOD ORDERABLES Final Resul t Performing Organization Address City/[facility]/ZIP Co de Phone Number [facility] [address] [place] [address], [place] [phone] * (ABNORMAL) Comprehensive metabolic panel (05/08/2025 12:16 PM EDT) Only the most recent of2 resultswithin the time period is included. Sodium 136 133 - 145 mmol/L LAB CHEMISTRY METHOD 05/08/2025 1:18 PM [facility] Potassium 4.3 3.5 - 5.5 mmol/L LAB CHEMISTRY METHOD 05/08/2025 1:18 PM [facility] Chloride 102 96 - 110 mmol/L LAB CHEMISTRY METHOD 05/08/2025 1:18 PM [facility] CO2 29 21 - 32 mmol/L LAB CHEMISTRY METHOD 05/08/2025 1:18 PM [facility] Anion Gap 5 3 - 11 LAB CHEMISTRY METHOD 05/08/2025 1:18 PM [facility] Glucose 105(H) 70 - 100 mg/dL LAB CHEMISTRY METHOD 05/08/2025 1:18 PM [facility] BUN 23 5 - 25 mg/dL LAB CHEMISTRY METHOD 05/08/2025 1:18 PM [facility] Creatinine 1.27(H) 0.50 - 1.10 mg/dL LAB CHEMISTRY METHOD 05/08/2025 1:18 PM [facility] eGFR 42(L) >=60 mL/min/1. 73m2 LAB CHEMISTRY METHOD 05/08/2025 1:18 PM [facility] Comment:Calculation based on the Chronic Kidney Disease Epidemiology Collaboration (CKD-EPI) equation refit without adjustment for race. BUN/Creatinine Ratio 18.1 LAB CHEMISTRY METHOD 05/08/2025 1:18 PM [facility] Calcium 9.4 8.5 - 10.5 mg/dL LAB CHEMISTRY METHOD 05/08/2025 1:18 PM [facility] AST (SGOT) 9(L) 10 - 42 unit/L LAB CHEMISTRY METHOD 05/08/2025 1:18 PM EDT [facility] ALT (SGPT) 22 10 - 60 unit/L LAB CHEMISTRY METHOD 05/08/2025 1:18 PM EDT [facility] Alkaline Phosphatase 85 42 - 121 unit/L LAB CHEMISTRY METHOD 05/08/2025 1:18 PM EDT [facility] Total Protein 7.5 6.0 - 8.0 g/dL LAB CHEMISTRY METHOD 05/08/2025 1:18 PM EDT [facility] Albumin 4.0 3.2 - 5.0 g/dL LAB CHEMISTRY METHOD 05/08/2025 1:18 PM EDT [facility] Total Bilirubin 0.4 0.0 - 1.4 mg/dL LAB CHEMISTRY METHOD 05/08/2025 1:18 PM EDT [facility] Blood Venous blood specimen / Unknown Venipuncture / Unknown 05/08/2025 12:16 PM EDT 05/08/2025 12:48 PM EDT us Shey Cedeno MD LAB BLOOD ORDERABLES Final Resul t [facility] [address] [place] [address], * ECG 12 lead (05/08/2025 11:48 AM EDT) Only the most recent of4 resultswithin the time period is included. Ventricular Rate ECG 103 BPM GEMUSE Atrial Rate 103 BPM GEMUSE P-R Interval 168 ms GEMUSE QRS Duration 116 ms GEMUSE Q-T Interval 344 ms GEMUSE QTc 450 ms GEMUSE P Wave [place] 84 degrees GEMUSE R [place] 61 degrees GEMUSE T [place] 59 degrees GEMUSE ECG Interpretation Sinus tachycardia [...] LAB MICROBIOLOGY METHOD 05/03/2025 5:23 AM EDT [facility] Influenza A PCR Not Detected Not Detected LAB MICROBIOLOGY METHOD 05/03/2025 5:23 AM EDT [facility] Influenza B PCR Not Detected Not Detected LAB MICROBIOLOGY METHOD 05/03/2025 5:23 AM EDT [facility] Coronavirus 229E Not Detected Not Detected LAB MICROBIOLOGY METHOD 05/03/2025 5:23 AM EDT [facility] Coronavirus HKU1 Not Detected Not Detected LAB MICROBIOLOGY METHOD 05/03/2025 5:23 AM EDT [facility] Coronavirus OC43 Not Detected Not Detected LAB MICROBIOLOGY METHOD 05/03/2025 5:23 AM EDT [facility] Coronavirus NL63 Not Detected Not Detected LAB MICROBIOLOGY METHOD 05/03/2025 5:23 AM EDT [facility] Parainfluenza Virus 1 Not Detected Not Detected LAB MICROBIOLOGY METHOD 05/03/2025 5:23 AM EDT [facility] Parainfluenza Virus 2 Not Detected Not Detected LAB MICROBIOLOGY METHOD 05/03/2025 5:23 AM EDT [facility] Parainfluenza Virus 3 Not Detected Not Detected LAB MICROBIOLOGY METHOD 05/03/2025 5:23 AM EDT [facility] Parainfluenza Virus 4 Not Detected Not Detected LAB MICROBIOLOGY METHOD 05/03/2025 5:23 AM EDT [facility] RSV PCR Not Detected Not Detected LAB MICROBIOLOGY METHOD 05/03/2025 5:23 AM EDT [facility] Human Metapneumovirus A and B Not Detected Not Detected LAB MICROBIOLOGY METHOD 05/03/2025 5:23 AM EDT [facility] Rhinovirus/Entero virus Detected(A ) Not Detected LAB MICROBIOLOGY METHOD 05/03/2025 5:23 AM EDT [facility] Bordetella pertussis Not Detected Not Detected LAB MICROBIOLOGY METHOD 05/03/2025 5:23 AM EDT [facility] Bordetella parapertussis Not Detected Not Detected LAB MICROBIOLOGY METHOD 05/03/2025 5:23 AM EDT [facility] Mycoplasma pneumo by PCR Not Detected Not Detected LAB MICROBIOLOGY METHOD 05/03/2025 5:23 AM EDT [facility] Chlamydia pneumoniae Not Detected Not Detected LAB MICROBIOLOGY METHOD 05/03/2025 5:23 AM EDT [facility] SARS COV-2 Not Detected Not Detected LAB MICROBIOLOGY METHOD 05/03/2025 5:23 AM EDT [facility] Swab Both anterior nares / Unknown Non-blood Collection / Unknown 05/03/2025 3:47 AM EDT 05/03/2025 4:22 AM EDT Narrative [facility] - 05/03/2025 5:23 AM EDT Testing was performed using the [employer] Respiratory Pathogen PCR Assay. All results must [...] MICROBIOLOGY - GENERAL O RDERABLES Final Result [facility] [address] [place] [address], [place] [phone] * (ABNORMAL) POCT Glucose, blood (05/03/2025 2:11 AM EDT) Glucose POCT 154(H) 70 - 100 mg/dL 05/03/2025 2:13 AM EDT [facility] Blood Capillary blood specimen / Unknown 05/03/2025 2:11 AM EDT 05/03/2025 2:13 AM EDT us Generic Provider Poct LAB POINT OF CARE TEST DOCKED DEVICE UNSOLICITED RESULTS Final Result [facility] [address] [place] [address], [place] [phone] * (ABNORMAL) Venous blood gas (05/03/2025 1:18 AM EDT) pH, Liam 7.35 7.32 - 7.42 pH 05/03/2025 1:27 AM EDT [facility] pCO2, Liam 48 41 - 51 mmHg 05/03/2025 1:27 AM EDT [facility] pO2, Liam 41(H) 25 - 40 mmHg 05/03/2025 1:27 AM EDT [facility] HCO3, Venous 24.8 22.0 - 26.0 mmol/L 05/03/2025 1:27 AM EDT [facility] O2 Sat, Liam 72.2 % 05/03/2025 1:27 AM EDT [facility] Base Excess, Liam 0.5 -2.0 - 2.0 mmol/L 05/03/2025 1:27 AM EDT [facility] Blood Venous blood specimen / Unknown Venipuncture / Unknown 05/03/2025 1:18 AM EDT 05/03/2025 1:23 AM EDT us Concetta GARCIA LAB BLOOD ORDERABLES Final R esult [facility] ([facility] [address] [place] [address], * XR Chest 2 Views (05/02/2025 9:57 [...] Signed Date: 05/03/2025 08:15 ET Workstation ID: [id number] Transcribed By: Self Edit Transcribed Date: 05/03/2025 [...] Signed Date: 05/03/2025 08:15 ET Workstation ID: [id number] Transcribed By: Self Edit Transcribed Date: 05/03/2025 08:14 ET Luis GARCIA IMG XR PROCEDURES Final Res ult * Procalcitonin (05/02/2025 9:48 PM EDT) Procalcitonin 0.03 <=0.16 ng/mL LAB CHEMISTRY METHOD 05/03/2025 11:13 AM EDT [facility] Blood Venous blood specimen / Unknown Venipuncture / Unknown 05/02/2025 9:48 PM EDT 05/02/2025 10:21 PM EDT Narrative [facility] - 05/03/2025 11:13 AM EDT [...] GARCIA LAB BLOOD ORDERABLES Final R esult [facility] [address] [place] [address], [place] [phone] * (ABNORMAL) Basic metabolic panel (05/02/2025 9:48 PM EDT) Sodium 139 133 - 145 mmol/L LAB CHEMISTRY METHOD 05/02/2025 10:45 PM [facility] Potassium 4.8 3.5 - 5.5 mmol/L LAB CHEMISTRY METHOD 05/02/2025 10:45 PM [facility] Chloride 106 96 - 110 mmol/L LAB CHEMISTRY METHOD 05/02/2025 10:45 PM [facility] CO2 27 21 - 32 mmol/L LAB CHEMISTRY METHOD 05/02/2025 10:45 PM [facility] Anion Gap 6 3 - 11 LAB CHEMISTRY METHOD 05/02/2025 10:45 PM [facility] Glucose 186(H) 70 - 100 mg/dL LAB CHEMISTRY METHOD 05/02/2025 10:45 PM [facility] BUN 23 5 - 25 mg/dL LAB CHEMISTRY METHOD 05/02/2025 10:45 PM [facility] Creatinine 1.15(H) 0.50 - 1.10 mg/dL LAB CHEMISTRY METHOD 05/02/2025 10:45 PM [facility] eGFR 47(L) >=60 mL/min/1. 73m2 LAB CHEMISTRY METHOD 05/02/2025 10:45 PM [facility] Comment:Calculation based on the Chronic Kidney Disease Epidemiology Collaboration (CKD-EPI) equation refit without adjustment for race. BUN/Creatinine Ratio 20.0 LAB CHEMISTRY METHOD 05/02/2025 10:45 PM [facility] Calcium 9.2 8.5 - 10.5 mg/dL LAB CHEMISTRY METHOD 05/02/2025 10:45 PM [facility] Blood Venous blood specimen / Unknown Venipuncture / Unknown 05/02/2025 9:48 PM EDT 05/02/2025 10:21 PM EDT us Luis GARCIA LAB BLOOD ORDERABLES Final Result Performing Organization Address [facility]/ZIP Co de Phone Number [facility] [address] [place] [address], * [id number], RSV, Influenza A and B qualitative RT-PCR (05/02/2025 9:36 PM EDT) [facility] Influenza A PCR Not Detected Not Detected LAB MICROBIOLOGY METHOD 05/02/2025 11:01 PM EDT [facility] Influenza B PCR Not Detected Not Detected LAB MICROBIOLOGY METHOD 05/02/2025 11:01 PM EDT [facility] RSV PCR Not Detected Not Detected LAB MICROBIOLOGY METHOD 05/02/2025 11:01 PM EDT [facility] SARS COV-2 Not Detected Not Detected LAB MICROBIOLOGY METHOD 05/02/2025 11:01 PM EDT [facility] Swab Both anterior nares / Unknown Non-blood Collection / Unknown 05/02/2025 9:36 PM EDT 05/02/2025 10:21 PM EDT Result [facility] Luis GARCIA LAB MICROBIOLOGY - GENERAL ORDERABLES Final Result Performing Organization Address [facility] Co de Phone Number [facility] [address] [place] [address], * (ABNORMAL) Hemoglobin A1c (09/04/2024 9:10 AM EST) [facility] Hemoglobin A1C 8.5(H) <6.5 % LAB CHEMISTRY METHOD 09/04/2024 5:11 PM EST [facility] Mean Bld Glu Estim. 197 mg/dL LAB CHEMISTRY METHOD 09/04/2024 5:11 PM EST [facility] Blood Venous blood specimen / Unknown Venipuncture / Unknown 09/04/2024 9:10 AM EST 09/04/2024 9:26 AM EST us Laron Maldonado MD LAB BLOOD ORDERABLES Final Res ult [facility] [address] [place] [address], * DOMINIC SCREENING DIGITAL (07/01/2019 4:51 PM EST) Anatomical Region Laterality Modality Mammography 07/01/2019 12:3 0 PM EST Narrative 07/01/2019 4:51 PM EST [facility] Diagnostic Imaging Department [address] [place] [address] Patient: KRISTIN VALDIVIA D.O.B./Age/Sex: 1940 - 78 - F Unit#: [id number] [facility] CLI Mnemonic/Ordering Site: [facility] Ordering Physician: GRISELDA VELAZQUEZ MD [facility] Screening Digital - 07/01/19 - 3777 INDICATION: SCREENING COMPARISON: No prior studies are available for comparison. TECHNIQUE: CC and MLO views of the breasts were obtained, using full field digital mammography with 3D tomosynthesis views in the MLO projection. Computer aided detection with the [employer] 7.2-H was employed. Patient reports 2 sisters [...] a target date for the next mammogram. [id number] / [id number]) , [id number] Dictating Physician: BRODY SMITH MD Electronically Signed by: BRODY SMITH MD Dic Date/Time: 07/01/19 1642 Sign date/Time: 07/01/19 165 Procedure Note Brody Smith - 07/13/2022 [facility] Diagnostic Imaging Department [address] [place] [address] Patient: MERI MCGREGORKRISTINO.B./Age/Sex: 1940 - 78 - F Unit#: [id number] Location/Status: [facility] Mnemonic/Ordering Site: [facility] Ordering Physician: GRISELDA VELAZQUEZ MD Dominic Screening Digital - 07/01/19 - 1316 INDICATION: SCREENING COMPARISON: No prior studies are available for comparison. TECHNIQUE: CC and MLO views of the breasts were obtained, using full field digital mammography with 3D tomosynthesis views in the MLO projection. Computer aided detection with the [employer] 7.2-H was employed. Patient reports 2 sisters [...] a target date for the next mammogram. 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
== END 2025-05-28 13:46 | disposition home or self-care (01) ==
PROVIDERS: PCP Internal Medicine; Visit Provider Physician Assistant Medical
DX: R09.81 Nasal congestion (principal)

== ENCOUNTER 2025-06-03 16:18 | Outpatient (AMB) | payer MEDICARE, OTHER, MEDICAID, SELFPAY ==
[2025-06-03 16:22] VITALS: BP 168/60; PULSE 80; RESP 18; O2SAT 95; BMI 22.9
--- NOTE | 2025-06-03 16:22 | MHC.PC.OV ---
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 Required: No Accompanied by: Self / Same As Patient Allergies amlodipine Adverse Reaction (Intermediate, Verified 06/03/25 17:01) leg edema empagliflozin (From Jardiance) Adverse Reaction (Verified 06/03/25 17:01) vaginal candidiasis Medication List - Last Reconciled 06/03/25 by Pam Montoya MD [adult diapers As directed] albuterol sulfate 90 mcg/actuation 2 puffs inhalation Q4-6H PRN 30 days alendronate 70 mg PO QWEEK amoxicillin-pot clavulanate 875-125 mg 1 tab PO Q12H apixaban (Eliquis) 5 mg PO BID 90 days [blood pressure daily monitoring As directed] blood sugar diagnostic (Accu-Chek Guide test strips) As directed 3 times per day blood-glucose meter (Accu-Chek Guide Me Glucose Meter) As directed cane As directed cetirizine-pseudoephedrine 5-120 mg ER 1 tab PO BID 7 days cholecalciferol (vitamin D3) 25 mcg PO DAILY 90 days commode (bedside commode) As directed dextrose (TRUEplus Glucose) 15 grams (32 mL) PO Q15M PRN dulaglutide (Trulicity) 1.5 mg (0.5 mL) subcut QWEEK 28 days fluticasone propion-salmeterol 100-50 mcg/dose (Wixela Inhub) 1 inh inhalation BID fluticasone propionate 50 mcg/actuation 1 spray intranasal Q12H gabapentin 300 mg (3 x 100 mg) PO BEDTIME 30 days isosorbide mononitrate ER 60 mg PO DAILY 90 days lancets (Accu-Chek Softclix Lancets) As directed 3 times per day levalbuterol tartrate 45 mcg/actuation (Xopenex HFA) 2 puffs inhalation Q4-6H PRN losartan 50 mg PO DAILY 90 days magnesium oxide 400 mg PO DAILY 90 days metformin 1,000 mg PO BID 90 days metoprolol succinate ER 50 mg PO BEDTIME metoprolol succinate ER 100 mg PO DAILY 90 days omeprazole 20 mg PO DAILY 90 days [One touch Ultra Blue test strips Use 3 times a day] underpads (Certainty Underpads) Use 1 to 2 times a day walker with brakes and seat Tobacco use date assessed: 10/16/24 Fall risk assessment: No Falls in past year Last assessed Fall Risk: 06/03/25 Dental Screening Dental Screen Date: 06/03/25 Did you have a dental visit in the last 12 months?: No Did you have a dental problem in the last 6 months where you did not have access to dental care?: No Was dental information given to patient?: Patient has dentist HPI HPI Comments History of Present Illness Details The patient is an 84-year-old female presenting for management of hypertension and diabetes. Her recent HbA1c was 8.2%. She has previously used Trulicity and takes metformin 1200 mg daily and gabapentin. Regarding her hypertension, she reports that her blood pressure is higher in the morning, around 141, despite being around 120-125 at bedtime. Her medication regimen includes metoprolol 100 mg daily and 50 mg at night, losartan, and magnesium; however, she is out of her nighttime metoprolol dose and did not take it today. She has a history of allergies to amlodipine, which caused leg swelling, and an adverse reaction to Jardiance, which caused vaginal candidiasis. The patient has a history of chronic kidney disease, stage 3. Her creatinine has slightly increased to 1.30 mg/dL from 1.14 mg/dL, and her GFR has decreased to 39 from 45, though she remains in stage 3. Her proteinuria has significantly improved, decreasing from 157 to 80, which is attributed to losartan. Other medical history includes osteoporosis, for which she takes alendronate once a week, and she uses an inhaler as needed for a respiratory condition. She is also in the process of having a hearing test. [facility] Medical History Acute respiratory disease Type 2 diabetes mellitus with diabetic neuropathy COPD (chronic obstructive pulmonary disease) Left shoulder pain Hyperlipidemia LDL goal <100 Abnormal SPEP Vitamin D deficiency Osteoporosis Age related osteoporosis Physical exam Hypomagnesemia Atrial fibrillation with rapid ventricular response Urinary incontinence Abnormal EKG Screening for osteoporosis Neuropathy Microalbuminuria JONNY (obstructive sleep apnea) Left shoulder pain Anemia GERD (gastroesophageal reflux disease) Coronary artery disease Hypertension Type 2 diabetes mellitus with hyperglycemia Surgical History History of surgery on arm Hx of dilation and curettage Hx of breast biopsy Family History Mother Diabetes mellitus Father CAD (coronary artery disease) Sister Lymphoma Breast cancer Brother Colon cancer Social History Household Members: Family Housing: House Are you a primary emergency care tech to a significant other at home: No Do you presently have visiting nurse or other home services: Yes (insurance nurse) Alcohol intake: never Patient Tobacco Use Status: Never used Tobacco e-Cigarette/Vaping Use: Never Used Second Hand Smoke Exposure: No service: No Current occupational status: disabled Cognitive needs: No Hearing needs: No Vision needs: Yes Questionnaire Thrive Questionnaire Date Thrive assessed: 02/17/25 I am a: Patient What is your living situation today?: I have a steady place to live Within the past 12 months, did the food you bought not last and you didn't have the money to get more?: I choose not to answer this question Within the past 12 months, did you worry whether your food would run out before you got money to buy more?: Never true Do you have trouble paying for medicines?: No Do you have trouble getting transportation to medical appointments?: No Do you have trouble paying your heating and electricity bill?: No Do you have trouble taking care of your child, family member or friend?: No Do you have trouble with day-to-day activities such as bathing, preparing meals, shopping, managing finances, etc.?: Yes Are you currently unemployed and looking for a job?: Yes Are you interested in more education?: No Please select the resources that you would like help with: None Currently or been in a relationship where the following occur: No concerns reported THRIVE Score: 0 LINDSAY-7 AMB Questionnaire LINDSAY-7 Date LINDSAY - 7 assessed: 10/16/24 Source: Developed by Drs. Jayro Wan, Tara Gutierrez, Bryant Reno and colleagues, with an educational adore from [employer]. Review of Systems Const All systems reviewed & are unremarkable except as noted in HPI and below Card Denies chest pain at rest, Denies chest pain with activity, Denies edema, Denies irregular heart rhythm, Denies claudication, Denies dyspnea, Denies dyspnea on exertion, Denies orthopnea, Denies paroxysmal nocturnal dyspnea and Denies slow heart rate Resp Denies cough, Denies dyspnea and Denies dyspnea on exertion Physical exam (Primary Care) Vital Signs: Last Vital Signs Pulse 80 06/03/25 16:22 Resp 18 06/03/25 16:22 BP 168/60 H 06/03/25 16:22 Pulse Ox 95 06/03/25 16:22 Oxygen Delivery Method Room Air 06/03/25 16:22 BMI result Body Mass Index 22.9 Tobacco/Smoking Status: Tobacco use Status Tobacco use date assessed 10/16/24 06/03/25 16:36 Patient Tobacco Use Status Never used Tobacco 06/03/25 16:36 e-Cigarette/Vaping Use Never Used 06/03/25 16:36 Thrive Assessment: Date of Thrive Assessment Date Thrive assessed 02/17/25 06/03/25 16:36 Currently or been in a relationship where the following occur: No concerns reported Resp Effort & Inspection: normal respiratory effort Auscultation: clear to auscultation bilaterally Cardio Jugular venous distension: no JVD Rate: regular rate Rhythm: regular rhythm Heart sounds: S1 normal heart sound present and S2 normal heart sound present Extrem General: Yes full ROM Results AMB Hemoglobin A1c AMB Hemoglobin A1c 8.2 % Last Edit by Casi Colmenares MA on 06/03/25 17:00 Results Reviewed Results Reviewed: Laboratory Last Values Hgb A1c (Clinic) 8.2 % (4.0-6.0) H 06/03/25 16:43 Coding Level of Care Code Est Pt Level 4 (83587) Complex EM visit Add On G2211 Diagnoses Essential hypertension I10 PAF (paroxysmal atrial fibrillation) I48.0 Hyperlipidemia LDL goal <70 E78.5 Type 2 diabetes mellitus with hyperglycemia, without long-term current use of insulin E11.65 Diabetes mellitus director long term care insulin use: without director long term care use Age-related osteoporosis without current pathological fracture M81.0 Presence of current pathological fracture: without current pathological fracture Stage 3a chronic kidney disease N18.31 Chronic kidney disease stage 3 subtype: stage 3a (GFR 45-59) COPD (chronic obstructive pulmonary disease) J44.9 Time Spent (min) 21 Assessment & Plan Assessment & Plan (1) Essential hypertension: Code(s): I10 - Essential (primary) hypertension Category: Medical (2) PAF (paroxysmal atrial fibrillation): Code(s): I48.0 - Paroxysmal atrial fibrillation Category: Medical (3) Hyperlipidemia LDL goal <70: Code(s): E78.5 - Hyperlipidemia, unspecified Category: Medical (4) Type 2 diabetes mellitus with hyperglycemia: Code(s): E11.65 - Type 2 diabetes mellitus with hyperglycemia Category: Medical Qualifiers: Diabetes mellitus detention insulin use: without detention use Qualified Code(s): E11.65 - Type 2 diabetes mellitus with hyperglycemia (5) Age related osteoporosis: Code(s): M81.0 - Age-related osteoporosis without current pathological fracture Category: Medical Qualifiers: Presence of current pathological fracture: without current pathological fracture Qualified Code(s): M81.0 - Age-related osteoporosis without current pathological fracture (6) CKD (chronic kidney disease) stage 3, GFR 30-59 ml/min: Code(s): N18.30 - Chronic kidney disease, stage 3 unspecified Category: Medical Qualifiers: Chronic kidney disease stage 3 subtype: stage 3a (GFR 45-59) Qualified Code(s): N18.31 - Chronic kidney disease, stage 3a (7) COPD (chronic obstructive pulmonary disease): Comment: Follow by pulmonology Dr. Gee Code(s): J44.9 - Chronic obstructive pulmonary disease, unspecified Category: Medical Plan Plan 1. Type 2 Diabetes Mellitus The patient's HbA1c of 8.2% indicates hyperglycemia. The plan is to increase the dose of Trulicity, a medication the patient has used before and is comfortable with, to improve glycemic control. The decision was made not to add a new medication to avoid polypharmacy and the risk of adverse effects. The patient will continue her current sugar pill (metformin). 2. Essential Hypertension The patient reports elevated blood pressure readings in the morning. She has run out of her 50 mg nighttime dose of metoprolol. A refill for the metoprolol will be sent to the pharmacy. The patient is advised to continue monitoring her blood pressure at home in a diary and to follow up in 3 weeks for a recheck. 3. Chronic Kidney Disease, Stage 3 The patient's lab results show a slight decline in renal function with a GFR of 39 and creatinine of 1.30, but she remains in stage 3 chronic kidney disease. There has been a significant improvement in proteinuria, which has decreased from 157 to 80, likely due to the losartan. The importance of maintaining good blood pressure control to reduce stress on the kidneys was emphasized. The patient was advised to continue follow-up with her postie. 4. Osteoporosis The patient will continue taking alendronate once a week for osteoporosis. Orders: Orders AMB Hemoglobin A1c Today Z13.9 - Encounter for screening, unspecified Medications: New dulaglutide (Trulicity) 3 mg (0.5 mL) subcut QWEEK 6.5 mL 1RF 90 days Refilled metoprolol succinate ER 50 mg PO BEDTIME 90 tabs 3RF metoprolol succinate ER 100 mg PO DAILY 90 tabs 1RF 90 days metformin 1,000 mg PO BID 180 tabs 3RF 90 days E11.65 - Type 2 diabetes mellitus with hyperglycemia Discontinued dulaglutide (Trulicity) Discontinued Reason: Patient Completed Course 1.5 mg (0.5 mL) subcut QWEEK 28 days 2 mL 6RF
--- OUTSIDE RECORDS SUMMARY | 2025-06-03 17:27 | XMS_ITS | Continuity of Care Document ---
Author Organization [place] - [facility], [place] [facility] [place] Address [address] [address] Care Team Providers Care Nutrition Services Assistant Name Role Phone JAYLON KITAMISAEL Primary Care Provider [phone] Assessment No assessment recorded. Plan of Treatment Reminders Order Date Submit [...] Sensorineur al hearing loss of bilateral ears 520801724 Active 2024 ARCADIO ABARCA 100 [facility], [address], [place], [address], [facility] - [facility] 5 15:29:12 Bilateral tinnitus 1290463815761 Active 2024 MIKE ODEN MA, CCC-A 100 [facility], [address], [place], [address], [facility] - [facility] 5 13:48:34 Pain in throat 929832597 Active 2024 LUIZ PAEZ MD 100 [facility], [address], [place], [address], [facility] - [facility] 14:18:55 Problem Notes None recorded. Procedures Surgical History Date Name Laterality Status Provider Name and Address Organization Details Recorded Time 02/13/2025 Comp Audio with Tymps - 72438 & 98575 completed MIKE ODEN MA, CCC-A 100 [email or web address] [address], [place], [address], [facility] - [facility] 02/13/2025 13:48:44 Imaging Results None recorded. Procedure [...] Available Not Available No t Available Vitals None Recorded Social History None recorded. Functional Status None recorded. Mental Status None recorded. Family History Nothing Reported. Medical History No medical history recorded. Gynecological HistoryNo gynecological history recorded. Obstetrics History GPAL:G 0 P 0 0 0 0 Past Encounters Encounter ID Performer Location Encounter Start Date Encounter Closed Date Diagnosis/Indication Diagnosis SNOMED-CT Code Diagnosis ICD10 Code Diagnosis IMO Codes Diagnosis Note [id number] LUIZ PAEZ MD [facility] [address] [address] 02/13/2025 13:06:35 02/13/2025 14:23:48 Sensorineural hearing loss of bilateral ears 179944346 H90.3 191705 Audiologic al evaluation results:Ri ght ear:Normal hearing sloping to a mild to moderate SNHL with good word recognitio n.Left ear:Normal hearing sloping to a mild to moderately severe SNHL with good word recognitio n. Tympanomet ry:Right Ear:Type ALeft Ear:Type A Bilateral tinnitus 08174 97213 102 H93.13 323638 Pain in throat 285151346 R07.0 [id number] Patient noting 8 months of throat pain. I will set up an appointmen t with one of my partners for further evaluation and possible fiberoptic examinatio n of the hypopharyn x and larynx. [id number] ARCADIO ABARCA [place] [facility] [place] [address] [place], [place] [address]Bruce [facility] [address] [place] [address] 03/07/2025 14:39:10 03/12/2025 05:37:07 Sensorineural hearing loss of bilateral ears 622552818 H90.3 [id number] Health Concerns Section Related Observation LastModified by Organization Detai ls LastModified Time None Recorded Concern Status LastModified by Organization Details LastModified Time None Recorded Payers Encounter Date Sequence Insurance Name Policy Number Policy Franco Covered Member ID Franco Member ID Guarantor Name 03/07/2025 1 [facility] (MEDICARE REPLACEMENT/A DVANTAGE - PPO) [id number] Kristin Villagomez [id number] Kristin Stanton Hern[place] Notes Date Note Type Note Provider Name and Address Organization Details Recorded Time 03/07/2025 text/html Pt is here today with [...] UHCHearing so they can find a provider. REGINA HARO, [facility] [address] [address], [place], [address], [facility] - [facility] 03/07/2025 15:29:23 OBGyn Episode No OBEpisode recorded.
--- OUTSIDE RECORDS SUMMARY | 2025-06-03 17:27 | XMS_ITS | Data Portability ---
Author Organization [place] - [facility], Allergy Address [address] [place] [address] Care Team Providers Care High School Tutor Name Role Phone JAYLONPHU Primary Care Provider [phone] Assessment Encounter Date Assessment Date Assessment LastModified [...] Patient is medically cleared for amplification bilaterally. Not available 02/13/2025 14:16:44 Plan of Treatment [...] Sensorineur al hearing loss of bilateral ears 719025820 Active 2024 ARCADIO ABARCA [address] [facility],[address] [address], [place], [address], [facility] 15:29:12 Bilateral tinnitus 0529761064458 Active 2024 MIKE ODEN [place], [facility] [address] [place] [address], [place], [address], [facility] - [facility] 13:48:34 Pain in throat 437331411 Active 2024 LUIZ PAEZ MD [address] [address], [place], [address], [facility] - [facility] 14:18:55 Problem Notes None recorded. Procedures Surgical History Date Name Laterality Status Provider Name and Address Organization Details Recorded Time 02/13/2025 Comp Audio with Tymps - 12690 & 76180 completed MIKE ODEN MA, [facility] [address] [facility],[address], [address], [facility] 02/13/2025 13:48:44 Imaging Results None recorded. Procedure [...] Updated DateTime 02/13/2025 160.02 cm 23.4 kg/m2 14219.19 g AMILCAR [place] - [facility] 02/13/2025 14:08:05 Social History None recorded. Functional Status None recorded. Mental Status None recorded. Family History Nothing Reported. Medical History No medical history recorded. Gynecological HistoryNo gynecological history recorded. Obstetrics History GPAL:G 0 P 0 0 0 0 Past Encounters Encounter ID Performer Location Encounter Start Date Encounter Closed Date Diagnosis/Indication Diagnosis SNOMED-CT Code Diagnosis ICD10 Code Diagnosis IMO Codes Diagnosis Note [id number] LUIZ PAEZ MD [facility] [address] [address] 02/13/2025 13:06:35 02/13/2025 14:23:48 Sensorineural hearing loss of bilateral ears 257137835 H90.3 [id number] Audiologic al evaluation results:Ri ght ear:Normal hearing sloping to a mild to moderate SNHL with good word recognitio n.Left ear:Normal hearing sloping to a mild to moderately severe SNHL with good word recognitio n. Tympanomet ry:Right Ear:Type ALeft Ear:Type A Bilateral tinnitus 97491 36693 102 H93.13 907102 Pain in throat 765941904 R07.0 66760 Patient noting 8 months of throat pain. I will set up an appointmen t with one of my partners for further evaluation and possible fiberoptic examinatio n of the hypopharyn x and larynx. [id number] ARCADIO ABARCA [place] - [facility] 100 [facility] 100 [place] [address] 03/07/2025 14:39:10 03/12/2025 05:37:07 Sensorineural hearing loss of bilateral ears 625163675 H90.3 [id number] Health Concerns Section Related Observation LastModified by Organization Detai ls LastModified Time None Recorded Concern Status LastModified by Organization Details LastModified Time None Recorded Advance Directives Directive None Recorded Payers Insurance Date Sequence Insurance Name Policy Number Policy Franco Covered Member ID Franco Member ID Guarantor Name 03/07/2025 1 [facility] (MEDICARE REPLACEMENT/A DVANTAGE - PPO) [id number] Kristin Stanton Villagomez [id number] Kristin Stanton Villagomez 05/07/2024 1 [place] Kristin Stanton Villagomez [id number] Kristin Stanton Villagomez 05/07/2024 1 [place] Kristin Stanton Villagomez [id number] D Kristin Stanton Villagomez Notes Date Note [...] or dysphagia. Today's visit carried out with internet specialist LUIZ PAEZ MD [address] [facility],[address] [address], [place], [address], [facility] - [facility] 02/13/2025 14:20:40 03/07/2025 text/html Pt is [...] can find a provider. ARCADIO ABARCA [address] [facility],[address] [address], [place], [address], [facility] - [facility] 03/07/2025 15:29:23 OBGyn Episode No OBEpisode recorded.
--- OUTSIDE RECORDS SUMMARY | 2025-06-03 17:28 | XMS_ITS | Clinical Summary ---
Author Organization 175 [facility] Address [address] [place] [address] Phone Care Team Providers Care Reproducer Name Role Phone Pam Montoya MD Primary Care Provider [phone] Allergies No known active allergies Medications magnesium [...] crush or chew. 60 each 11 5 Active albuterol 2.5 mg /3 mL (0.083 %) nebulizer solutionIndicat ions:Asthma, unspecified asthma severity, unspecified whether complicated, unspecified whether persistent Take 3 mL (2.5 mg total) by nebulization every 6 (six) hours if needed for wheezing or shortness of breath. 75 mL 5 026 Active hydrOXYzine HCL (ATARAX) 25 mg tablet Take 1 tablet (25 mg total) by mouth every 8 (eight) hours if needed for anxiety. 30 tablet 5 025 Active umeclidinium (Incruse Ellipta) 62.5 mcg/actuation inhalation Inhale 1 puff by mouth 1 (one) time each day. 1 each 5 Active fluticasone-ume clidinium-vilan terol (Trelegy Ellipta) 200-62.5-25 mcg inhaler Inhale 1 puff (200 mcg total) by mouth 1 (one) time each day. Rinse mouth with water after use to reduce aftertaste and incidence of candidiasis. Do not swallow. 1 each 5 026 Active predniSONE (DELTASONE) 20 mg tablet Take 2 (two) tablets once a day for a total of 40 mg for 5 days. Do not take if blood sugar is > 200 10 tablet 5 025 dextromethorpha n-guaiFENesin (MUCINEX DM) 30-600 mg per 12 hr tablet Take 1 tablet by mouth every 12 (twelve) hours for 3 days. Do not crush, chew, or split. 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 Govea on November 2024 Diabetes mellitus type 2 wit h neurological manifestations (CMS/HCC V24, CMS/HCC V28) 05/03/2017 Hyperlipidemia 05/03/2017 Hypertension 05/03/2017 Allergic rhinitis 04/25/2017 Asthma-COPD overlap syndrome (CMS/HCC V24, [facility]/ CC V28) 04/25/2017 Overview (04/03/2024): Last [...] unspecified organism, unspecified acute renal failure type (CMS/HCC V24, CMS/HCC V28) 09/04/2024 09/06/2024 Encounters Date Type Department Care Team Description 05/21/2025 3:45 PM EDT Office Visit Pulmonology [facility] [address] [phone] Fco Parsons MD Asthma-COPD overlap syndrome (CMS/HCC V24, CMS/HCC V28) (Primary Dx); Cough, unspecified type 05/08/2025 11:42 AM EDT - 05/08/2025 4:19 PM EDT Emergency [facility] [address] [place] [phone] Shey Cedeno MD Dyspnea, unspecified type (Primary Dx); Tachycardia; Mycobacterium avium complex (CMS/HCC V24, CMS/HCC V28); Dizziness; PVC (premature ventricular contraction); Anxiety; Palpitations; Cardiac arrhythmia, unspecified cardiac arrhythmia type Discharge Disposition: Home or Self Care 05/08/2025 10:45 AM EDT [facility] [address] [phone] Fco Parsons MD Asthma-COPD overlap syndrome ([facility] V24, [facility] V28) (Primary Dx); Wheezing; Tachycardia 05/02/2025 11:02 PM EDT - 05/03/2025 6:11 AM EDT Emergency [facility] [address] [place] [phone] Ruth Alford MD Rhinovirus (Primary Dx); Asthma, unspecified asthma severity, unspecified whether complicated, unspecified whether persistent Discharge Disposition: Home or Self Care 03/13/2025 4:52 PM EDT - 03/13/2025 9:14 PM EDT Emergency [facility] [address] [place] [phone] Ruth Alford MD Other chest pain (Primary [...] mellitus type 2 wit h neurological manifestations ([facility] V24, [facility] V28) 05/03/2017 DX:Diabetes mellitus type 2 with neurological manifestations ([facility]) Hyperlipidemia 05/03/2017 DX:Hyperlipidemi a Hypertension 05/03/2017 DX:Hypertension [...] PM EST Office Visit Infectious Disease - [place] [address] [phone] Natalie Govea MD [address] [address] 08/25/2025 3:30 PM EST Office Visit Pulmonology - [place] [address] [phone] Fco Parsons MD [address] [place] [phone] Health Maintenance Due Date Last Done [...] ECG 12-LEAD STAT 05/02/2025 9:43 PM EDT [id number], RSV, FLU A AND B QUALITATIVE RT-PCR, [...] Signed Date: 05/08/2025 15:27 ET Workstation ID: [id number] Transcribed By: Self Edit Transcribed Date: 05/08/2025 [...] by the technologist on an independent workstation. [employer] VCT dose reduction utilizing iterative reconstruction. Total [...] obtained by the technologist on anindependent workstation. [employer] VCT dose reduction utilizing iterative reconstruction. Total [...] Signed Date: 05/08/2025 15:27 ET Workstation ID: [id number] Transcribed By: Self Edit Transcribed Date: 05/08/2025 15:20 ET Shey Cedeno MD IM CT PROCEDURES Final [...] Signed Date: 05/08/2025 14:52 ET Workstation ID: [id number] Transcribed By: Self Edit Transcribed Date: 05/08/2025 [...] Signed Date: 05/08/2025 14:52 ET Workstation ID: [id number] Transcribed By: Self Edit Transcribed Date: 05/08/2025 14:52 ET Shey Cedeno MD [facility] CT PROCEDURES Final Result * Urinalysis with reflex microscopic (05/08/2025 1:49 PM EDT) Specific [place] Urine 1.005 1.003 - 1.030 LAB URINALYSIS - AUTOMATED METHOD 05/08/2025 2:04 PM EDT [facility] pH, Urine 7.5 5.0 - 8.0 pH LAB URINALYSIS - AUTOMATED METHOD 05/08/2025 2:04 PM T [facility] Leukocytes, Urine Negative Negative LAB URINALYSIS - AUTOMATED METHOD [facility] Nitrite, Urine Negative Negative LAB URINALYSIS - AUTOMATED METHOD 05/08/2025 2:04 PM [facility] Protein, Urine Negative <=Trace mg/dL LAB URINALYSIS - AUTOMATED METHOD 05/08/2025 2:04 PM EDT [facility] Glucose, Urine Negative Negative mg/dL LAB URINALYSIS - AUTOMATED METHOD 05/08/2025 2:04 PM EDT [facility] Ketones, Urine Negative Negative mg/dL LAB URINALYSIS - AUTOMATED METHOD 05/08/2025 2:04 PM EDT [facility] Urobilinogen, Urine 0.2 0.2 - 1.0 mg/dL LAB URINALYSIS - AUTOMATED METHOD 05/08/2025 2:04 PM EDT [facility] Bilirubin, Urine Negative Negative LAB URINALYSIS - AUTOMATED METHOD 05/08/2025 2:04 PM EDT [facility] Blood, Urine Negative Negative LAB URINALYSIS - AUTOMATED METHOD 05/08/2025 2:04 PM EDT [facility] Urine Urine specimen obtained by clean catch procedure / Unknown Non-blood Collection / Unknown 05/08/2025 1:49 PM EDT 05/08/2025 1:57 PM EDT us Shey Cedeno MD LAB URINE ORDERABLES Final Resul t [facility] [address] [place] [address], * Troponin I high sensitivity (05/08/2025 1:42 PM EDT) Only the most recent of6 resultswithin the time period is included. High Sensitivity Troponin I 8 <=54 ng/L LAB CHEMISTRY METHOD 05/08/2025 2:41 PM EDT [facility] Blood Venous blood specimen / Unknown Venipuncture / Unknown 05/08/2025 1:42 PM EDT 05/08/2025 1:57 PM EDT Narrative [facility] - 05/08/2025 2:41 PM EDT High levels of biotin in samples may falsely decrease hsTroponin values. Use caution when interpreting hsTroponin results in patients taking biotin who exhibit renal impairment (eGFR <60) or in patients taking more than 20 mg/day of biotin. us Shey Cedeno MD LAB BLOOD ORDERABLES Final Resul t [facility] [address] [place] [address], * (ABNORMAL) CBC auto differential (05/08/2025 12:16 PM EDT) Only the most recent of3 resultswithin the time period is included. WBC 10.7 4.8 - 10.8 K/mcL LAB HEMETOLOGY METHOD 05/08/2025 12:53 PM EDT [facility] RBC 4.50 3.80 - 4.80 M/mcL LAB HEMETOLOGY METHOD 05/08/2025 12:53 PM EDT [facility] Hemoglobin 11.3(L) 11.5 - 16.0 g/dL LAB HEMETOLOGY METHOD 05/08/2025 12:53 PM EDT [facility] Hematocrit 35.1 35.0 - 47.0 % LAB HEMETOLOGY METHOD 05/08/2025 12:53 PM [facility] MCV 78.5(L) 79.0 - 98.0 FL LAB HEMETOLOGY METHOD 05/08/2025 12:53 PM EDT [facility] MCH 25.3(L) 27.0 - 32.0 pcg LAB HEMETOLOGY METHOD 05/08/2025 12:53 PM EDT [facility] MCHC 32.2 32.0 - 37.0 g/dL LAB HEMETOLOGY METHOD 05/08[facility]2025 12:[facility] RDW 13.0 11.0 - 15.0 % LAB HEMETOLOGY METHOD 05/08/2025 12:53 PM [facility] Platelets 307 130 - 400 K/mcL LAB HEMETOLOGY METHOD 05/08/2025 12:53 PM [facility] MPV 9.2 7.0 - 11.0 FL LAB HEMETOLOGY METHOD 05/08/2025 12:53 PM [facility] NRBC 0.0 <1.0 % LAB HEMETOLOGY METHOD 05/08/2025 12:53 PM [facility] NRBC Absolute 0.00 <0.10 K/mcL LAB HEMETOLOGY METHOD 05/08/2025 12:53 PM [facility] Neutrophils Relative 69.0 % LAB HEMETOLOGY METHOD 05/08/2025 12:53 PM [facility] Lymphocytes Relative 20.9 % LAB HEMETOLOGY METHOD 05/08/2025 12:53 PM [facility] Monocytes Relative 8.2 % LAB HEMETOLOGY METHOD 05/08/2025 12:53 PM [facility] Eosinophils Relative 0.7 % LAB HEMETOLOGY METHOD 05/08/2025 12:53 PM [facility] Basophils Relative 0.5 % LAB HEMETOLOGY METHOD 05/08/2025 12:53 PM [facility] Immature Granulocytes Relative 0.7 % LAB HEMETOLOGY METHOD 05/08/2025 12:53 PM [facility] Neutrophils Absolute 7.41(H) 1.50 - 7.00 K/mcL LAB HEMETOLOGY METHOD 05/08/2025 12:53 PM [facility] Lymphocytes Absolute 2.24 1.00 - 5.00 K/mcL LAB HEMETOLOGY METHOD 05/08/2025 12:53 PM [facility] Monocytes Absolute 0.88 0.20 - 1.00 K/mcL LAB HEMETOLOGY METHOD 05/08/2025 12:53 PM EDT [facility] Eosinophils Absolute 0.07 0.00 - 0.50 K/mcL LAB HEMETOLOGY METHOD 05/08/2025 12:53 PM EDT [facility] Basophils Absolute 0.05 0.00 - 0.20 K/[facility] LAB HEMETOLOGY METHOD 05/08/2025 12:53 PM EDT [facility] Immature Granulocytes Absolute 0.07(H) 0.00 - 0.03 K/[facility] LAB HEMETOLOGY METHOD 05/08/2025 12:53 PM EDT [facility] Blood Venous blood specimen / Unknown Venipuncture / Unknown 05/08/2025 12:16 PM EDT 05/08/2025 12:48 PM EDT us Shey Cedeno MD LAB BLOOD ORDERABLES Final Resul t [facility] [address] [place] [address], [place] [phone] * B-type natriuretic peptide (05/08/2025 12:16 PM EDT) Only the most recent of2 resultswithin the time period is included. BNP 46 <=100 pcg/mL LAB CHEMISTRY METHOD 05/08/2025 1:21 PM EDT [facility] Blood Venous blood specimen / Unknown Venipuncture / Unknown 05/08/2025 12:16 PM EDT 05/08/2025 12:48 PM EDT us Shey Cedeno MD LAB BLOOD ORDERABLES Final Resul t [facility] [address] [place] [address], [place] [phone] * (ABNORMAL) Magnesium (05/08/2025 12:16 PM EDT) Only the most recent of3 resultswithin the time period is included. Pathologist [facility] Magnesium 1.7(L) 1.9 - 2.6 mg/dL LAB CHEMISTRY METHOD 05/08/2025 1:18 PM EDT [facility] Blood Venous blood specimen / Unknown Venipuncture / Unknown 05/08/2025 12:16 PM EDT 05/08/2025 12:48 PM EDT us Shey Cedeno MD LAB BLOOD ORDERABLES Final Resul t Performing Organization Address City/[facility] de Phone Number [facility] [address] [place] [address], [place] [phone] * (ABNORMAL) Lipase (05/08/2025 12:16 PM EDT) Only the most recent of2 resultswithin the time period is included. [facility] Lipase 82(H) 13 - 75 unit/L LAB CHEMISTRY METHOD 05/08/2025 1:18 PM EDT [facility] Blood Venous blood specimen / Unknown Venipuncture / Unknown 05/08/2025 12:16 PM EDT 05/08/2025 12:48 PM EDT us Shey Cedeno MD LAB BLOOD ORDERABLES Final Resul t Performing Organization Address [facility] de Phone Number [facility] [address] [place] [address], [place] [phone] * (ABNORMAL) Comprehensive metabolic panel (05/08/2025 12:16 PM EDT) Only the most recent of2 resultswithin the time period is included. Pathologist [facility] Sodium 136 133 - 145 mmol/L LAB CHEMISTRY METHOD 05/08/2025 1:18 PM EDT [facility] Potassium 4.3 3.5 - 5.5 mmol/L LAB CHEMISTRY METHOD 05/08/2025 1:18 PM EDT [facility] Chloride 102 96 - 110 mmol/L LAB CHEMISTRY METHOD 05/08/2025 1:18 PM [facility] CO2 29 21 - 32 mmol/L LAB CHEMISTRY METHOD 05/08/2025 1:18 PM [facility] Anion Gap 5 3 - 11 LAB CHEMISTRY METHOD 05/08/2025 1:18 PM [facility] Glucose 105(H) 70 - 100 mg/dL LAB CHEMISTRY METHOD 05/08/2025 1:18 PM [facility] BUN 23 5 - 25 mg/dL LAB CHEMISTRY METHOD 05/08/2025 1:18 PM [facility] Creatinine 1.27(H) 0.50 - 1.10 mg/dL LAB CHEMISTRY METHOD 05/08/2025 1:18 PM [facility] eGFR 42(L) >=60 mL/min/1. 73m2 LAB CHEMISTRY METHOD 05/08/2025 1:18 PM [facility] Comment:Calculation based on the Chronic Kidney Disease Epidemiology Collaboration (CKD-EPI) equation refit without adjustment for race. BUN/Creatinine Ratio 18.1 LAB CHEMISTRY METHOD 05/08/2025 1:18 PM [facility] Calcium 9.4 8.5 - 10.5 mg/dL LAB CHEMISTRY METHOD 05/08/2025 1:18 PM [facility] AST (SGOT) 9(L) 10 - 42 unit/L LAB CHEMISTRY METHOD 05/08/2025 1:18 PM [facility] ALT (SGPT) 22 10 - 60 unit/L LAB CHEMISTRY METHOD 05/08/2025 1:18 PM [facility] Alkaline Phosphatase 85 42 - 121 unit/L LAB CHEMISTRY METHOD 05/08/2025 1:18 PM [facility] Total Protein 7.5 6.0 - 8.0 g/dL LAB CHEMISTRY METHOD 05/08/2025 1:18 PM [facility] Albumin 4.0 3.2 - 5.0 g/dL LAB CHEMISTRY METHOD 05/08/2025 1:18 PM EDT [facility] Total Bilirubin 0.4 0.0 - 1.4 mg/dL LAB CHEMISTRY METHOD 05/08/2025 1:18 PM EDT [facility] Blood Venous blood specimen / Unknown Venipuncture / Unknown 05/08/2025 12:16 PM EDT 05/08/2025 12:48 PM EDT us Shey Cedeno MD LAB BLOOD ORDERABLES Final Resul t [facility] [address] [place] [address], [place] [phone] * ECG 12 lead (05/08/2025 11:48 AM EDT) Only the most recent of4 resultswithin the time period is included. Pathologist [facility] Ventricular Rate ECG 103 BPM GEMUSE Atrial Rate 103 BPM GEMUSE P-R Interval 168 ms GEMUSE QRS Duration 116 ms GEMUSE Q-T Interval 344 ms GEMUSE QTc 450 ms GEMUSE P Wave [place] 84 degrees GEMUSE R [place] 61 degrees GEMUSE T [place] 59 degrees GEMUSE ECG Interpretation Sinus tachycardia [...] period is included. Pathologist [facility] Adenovirus Detection by PCR Not Detected Not Detected LAB MICROBIOLOGY METHOD 05/03/2025 5:23 AM EDT [facility] Influenza A PCR Not Detected Not Detected LAB MICROBIOLOGY METHOD 05/03/2025 5:23 AM EDT [facility] Influenza B PCR Not Detected Not Detected LAB MICROBIOLOGY METHOD 05/03/2025 5:23 AM EDT [facility] Coronavirus 229E Not Detected Not Detected LAB MICROBIOLOGY METHOD 05/03/2025 5:23 AM EDT [facility] Coronavirus HKU1 Not Detected Not Detected LAB MICROBIOLOGY METHOD 05/03/2025 5:23 AM EDT [facility] Coronavirus OC43 Not Detected Not Detected LAB MICROBIOLOGY METHOD 05/03/2025 5:23 AM EDT [facility] Coronavirus NL63 Not Detected Not Detected LAB MICROBIOLOGY METHOD 05/03/2025 5:23 AM EDT [facility] Parainfluenza Virus 1 Not Detected Not Detected LAB MICROBIOLOGY METHOD 05/03/2025 5:23 AM EDT [facility] Parainfluenza Virus 2 Not Detected Not Detected LAB MICROBIOLOGY METHOD 05/03/2025 5:23 AM EDT [facility] Parainfluenza Virus 3 Not Detected Not Detected LAB MICROBIOLOGY METHOD 05/03/2025 5:23 AM EDT [facility] Parainfluenza Virus 4 Not Detected Not Detected LAB MICROBIOLOGY METHOD 05/03/2025 5:23 AM EDT [facility] RSV PCR Not Detected Not Detected LAB MICROBIOLOGY METHOD 05/03/2025 5:23 AM EDT [facility] Human Metapneumovirus A and B Not Detected Not Detected LAB MICROBIOLOGY METHOD 05/03/2025 5:23 AM EDT [facility] Rhinovirus/Entero virus Detected(A ) Not Detected LAB MICROBIOLOGY METHOD 05/03/2025 5:23 AM EDT [facility] Bordetella pertussis Not Detected Not Detected LAB MICROBIOLOGY METHOD 05/03/2025 5:23 AM EDT [facility] Bordetella parapertussis Not Detected Not Detected LAB MICROBIOLOGY METHOD 05/03/2025 5:23 AM EDT [facility] Mycoplasma pneumo by PCR Not Detected Not Detected LAB MICROBIOLOGY METHOD 05/03/2025 5:23 AM EDT [facility] Chlamydia pneumoniae Not Detected Not Detected LAB MICROBIOLOGY METHOD 05/03/2025 5:23 AM EDT [facility] SARS COV-2 Not Detected Not Detected LAB MICROBIOLOGY METHOD 05/03/2025 5:23 AM EDT [facility] Swab Both anterior nares / Unknown Non-blood Collection / Unknown 05/03/2025 3:47 AM EDT 05/03/2025 4:22 AM EDT Narrative [facility] - 05/03/2025 5:23 AM EDT Testing was performed using the [employer] Respiratory Pathogen PCR Assay. All results must [...] MICROBIOLOGY - GENERAL O RDERABLES Final Result [facility] [address] [place] [address], * (ABNORMAL) POCT Glucose, blood (05/03/2025 2:11 AM EDT) Glucose POCT 154(H) 70 - 100 mg/dL 05/03/2025 2:13 AM EDT [facility] Blood Capillary blood specimen / Unknown 05/03/2025 2:11 AM EDT 05/03/2025 2:13 AM EDT us Generic Provider Poct LAB POINT OF CARE TEST DOCKED DEVICE UNSOLICITED RESULTS Final Result Performing Organization Address [facility]/ZIP Co de Phone Number [facility] [address] [place] [address], * (ABNORMAL) Venous blood gas (05/03/2025 1:18 AM EDT) pH, Liam 7.35 7.32 - 7.42 pH 05/03/2025 1:27 AM EDT [facility] pCO2, Liam 48 41 - 51 mmHg 05/03/2025 1:27 AM EDT [facility] pO2, Liam 41(H) 25 - 40 mmHg 05/03/2025 1:27 AM EDT [facility] HCO3, Venous 24.8 22.0 - 26.0 mmol/L 05/03/2025 1:27 AM EDT [facility] O2 Sat, Liam 72.2 % 05/03/2025 1:27 AM EDT [facility] Base Excess, Liam 0.5 -2.0 - 2.0 mmol/L 05/03/2025 1:27 AM EDT [facility] Blood Venous blood specimen / Unknown Venipuncture / Unknown 05/03/2025 1:18 AM EDT 05/03/2025 1:23 AM EDT Concetta GARCIA LAB BLOOD ORDERABLES Final R esult [facility] [address] [place] [address], * XR Chest 2 Views (05/02/2025 9:57 [...] Signed Date: 05/03/2025 08:15 ET Workstation ID: [id number] Transcribed By: Self Edit Transcribed Date: 05/03/2025 [...] Signed Date: 05/03/2025 08:15 ET Workstation ID: [id number] Transcribed By: Self Edit Transcribed Date: 05/03/2025 08:14 ET us Luis GARCIA IMG XR PROCEDURES Final Res ult * Procalcitonin (05/02/2025 9:48 PM EDT) Procalcitonin 0.03 <=0.16 ng/mL LAB CHEMISTRY METHOD 05/03/2025 11:13 AM EDT [facility] Blood Venous blood specimen / Unknown Venipuncture / Unknown 05/02/2025 9:48 PM EDT 05/02/2025 10:21 PM EDT Narrative [facility] - 05/03/2025 11:13 AM EDT [...] GARCIA LAB BLOOD ORDERABLES Final R esult [facility] [address] [place] [address], * (ABNORMAL) Basic metabolic panel (05/02/2025 9:48 PM EDT) Sodium 139 133 - 145 mmol/L LAB CHEMISTRY METHOD 05/02/2025 10:45 PM EDT [facility] Potassium 4.8 3.5 - 5.5 mmol/L LAB CHEMISTRY METHOD 05/02/2025 10:45 PM EDT [facility] Chloride 106 96 - 110 mmol/L LAB CHEMISTRY METHOD 05/02/2025 10:45 PM EDT [facility] CO2 27 21 - 32 mmol/L LAB CHEMISTRY METHOD 05/02/2025 10:45 PM EDT [facility] Anion Gap 6 3 - 11 LAB CHEMISTRY METHOD 05/02/2025 10:45 PM EDT [facility] Glucose 186(H) 70 - 100 mg/dL LAB CHEMISTRY METHOD 05/02/2025 10:45 PM EDT [facility] BUN 23 5 - 25 mg/dL LAB CHEMISTRY METHOD 05/02/2025 10:45 PM EDT [facility] Creatinine 1.15(H) 0.50 - 1.10 mg/dL LAB CHEMISTRY METHOD 05/02/2025 10:45 PM EDT [facility] eGFR 47(L) >=60 mL/min/1. 73m2 LAB CHEMISTRY METHOD 05/02/2025 10:45 PM T [facility] Comment:Calculation based on the Chronic Kidney Disease Epidemiology Collaboration (CKD-EPI) equation refit without adjustment for race. BUN/Creatinine Ratio 20.0 LAB CHEMISTRY METHOD 05/02/2025 10:45 PM EDT [facility] Calcium 9.2 8.5 - 10.5 mg/dL LAB CHEMISTRY METHOD 05/02/2025 10:45 PM [facility] Blood Venous blood specimen / Unknown Venipuncture / Unknown 05/02/2025 9:48 PM EDT 05/02/2025 10:21 PM EDT us Luis GARCIA LAB BLOOD ORDERABLES Final Result [facility] [address] [place] [address], * [id number], RSV, Influenza A and B qualitative RT-PCR (05/02/2025 9:36 PM EDT) Influenza A PCR Not Detected Not Detected LAB MICROBIOLOGY METHOD 05/02/2025 11:01 PM EDT [facility] Influenza B PCR Not Detected Not Detected LAB MICROBIOLOGY METHOD 05/02/2025 11:01 PM EDT [facility] RSV PCR Not Detected Not Detected LAB MICROBIOLOGY METHOD 05/02/2025 11:01 PM EDT [facility] SARS COV-2 Not Detected Not Detected LAB MICROBIOLOGY METHOD 05/02/2025 11:01 PM EDT [facility] Swab Both anterior nares / Unknown Non-blood Collection / Unknown 05/02/2025 9:36 PM EDT 05/02/2025 10:21 PM EDT us Luis GARCIA LAB MICROBIOLOGY - GENERAL ORDERABLES Final Result [facility] [address] [place] [address], [place] [phone] * (ABNORMAL) Hemoglobin A1c (09/04/2024 9:10 AM [...] MD LAB BLOOD ORDERABLES Final Res ult [facility] [address] [place] [address], [place] [phone] * DOMINIC SCREENING DIGITAL (07/01/2019 4:51 PM EST) Anatomical Region Laterality Modality Mammography 07/01/2019 12:3 0 PM EST Narrative 07/01/2019 4:51 PM [facility] Diagnostic Imaging Department [address] [place] [address] Patient: KRISTIN VALDIVIA /Age/Sex: 1940 - 78 - F Unit#: [id number] Location/Status: SPDIMAM/REG CLI Mnemonic/Ordering Site: [facility] Ordering Physician: GRISELDA VELAZQUEZ MD Dominic Screening Digital - 07/01/191316 INDICATION: SCREENING COMPARISON: No prior studies are available for comparison. TECHNIQUE: CC and MLO views of the breasts were obtained, using full field digital mammography with 3D tomosynthesis views in the MLO projection. Computer aided detection with the [employer] 7.2-H was employed. Patient reports 2 sisters [...] a target date for the next mammogram. ([id number] / [id number]) , [id number] Dictating Physician: BRODY SMITH MD Electronically Signed by: BRODY SMITH MD Date/Time: 07/01/19 1646 Sign date/Time: 07/01/19 1651 Procedure Note Brody Smith - 07/13/2022 [facility] Diagnostic Imaging Department [address] [place] [id number] Patient: MERI MCGREGORKRISTINO.B./Age/Sex: 1940 - 78 - F Unit#: [id number] Location/Status: SPDIMAM/REG CLI Mnemonic/Ordering Site: [facility] Ordering Physician: GRISELDA VELAZQUEZ MD Dominic Screening Digital - 07/01/19 - 1317 INDICATION: SCREENING COMPARISON: No prior studies are available for comparison. TECHNIQUE: CC and MLO views of the breasts were obtained, using full field digital mammography with 3D tomosynthesis views in the MLO projection. Computer aided detection with the [employer] was employed. Patient reports 2 sisters [...] a target date for the next mammogram. 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
== END 2025-06-03 17:29 | disposition home or self-care (01) ==
LOC: HO.HMCH 16:19
PROVIDERS: PCP Internal Medicine; Visit Provider Internal Medicine
DX: I10 Essential (primary) hypertension (principal); I48.0 Paroxysmal atrial fibrillation; E78.5 Hyperlipidemia, unspecified; E11.65 Type 2 diabetes mellitus with hyperglycemia; M81.0 Age-related osteoporosis without current pathological fracture; N18.31 Chronic kidney disease, stage 3a; J44.9 Chronic obstructive pulmonary disease, unspecified; Z13.9 Encounter for screening, unspecified

== ENCOUNTER → 2025-06-03 16:18 | Outpatient (BNVA) | payer MEDICARE, OTHER, MEDICAID, SELFPAY | PROVIDERS: PCP Internal Medicine; Visit Provider Internal Medicine | DX: E11.65 Type 2 diabetes mellitus with hyperglycemia (principal); E78.5 Hyperlipidemia, unspecified; I48.0 Paroxysmal atrial fibrillation; M81.0 Age-related osteoporosis without current pathological fracture; J44.9 Chronic obstructive pulmonary disease, unspecified; I12.9 Hypertensive chronic kidney disease with stage 1 through stage 4 chronic kidney disease, or unspecified chronic kidney disease; E11.22 Type 2 diabetes mellitus with diabetic chronic kidney disease; N18.31 Chronic kidney disease, stage 3a | CPT/HCPCS: 83036; 99212 ==

== ENCOUNTER → 2025-06-26 14:09 | Outpatient (BNVA) | payer MEDICARE, OTHER, MEDICAID, SELFPAY | PROVIDERS: PCP Internal Medicine | DX: I10 Essential (primary) hypertension (principal) | CPT/HCPCS: 99211 ==

== ENCOUNTER 2025-06-30 09:55 | Outpatient (AMB) | payer MEDICARE, OTHER, MEDICAID, SELFPAY ==
[2025-06-30 09:58] VITALS: BP 150/72; PULSE 82; BMI 23.2
--- NOTE | 2025-06-30 09:58 | A.OFFVIS_ITS ---
Vital Signs 06/30/25 09:58 Height 5 ft 3 in Weight 130 lb 15.273 oz BMI 23.2 BP 150/72 H Blood Pressure Location Lt brachial Position Sitting Pulse 82 Pulse Source Pulse Oximeter Intake Visit Reasons: 6 mth f/up Data Management Consultant Required: Yes Data Management Consultant Language: [employer]el [employer] Supervisor Name: marcus [id number] Allergies amlodipine Adverse Reaction (Intermediate, Verified 06/30/25 10:06) leg edema empagliflozin (From Jardiance) Adverse Reaction (Verified 06/30/25 10:06) vaginal candidiasis Medication List - Last Reconciled 06/30/25 by Helen Bai NP-C [adult diapers As directed] albuterol sulfate 90 mcg/actuation 2 puffs inhalation Q4-6H PRN 30 days alendronate 70 mg PO QWEEK amoxicillin-pot clavulanate 875-125 mg 1 tab PO Q12H apixaban (Eliquis) 5 mg PO BID 90 days [blood pressure daily monitoring As directed] blood sugar diagnostic (Accu-Chek Guide test strips) As directed 3 times per day blood-glucose meter (Accu-Chek Guide Me Glucose Meter) As directed cane As directed cetirizine-pseudoephedrine 5-120 mg ER 1 tab PO BID 7 days cholecalciferol (vitamin D3) 25 mcg PO DAILY 90 days commode (bedside commode) As directed dextrose (TRUEplus Glucose) 15 grams (32 mL) PO Q15M PRN dulaglutide (Trulicity) 3 mg (0.5 mL) subcut QWEEK 90 days fluticasone propionate 50 mcg/actuation 1 spray intranasal Q12H gabapentin 300 mg (3 x 100 mg) PO BEDTIME 30 days isosorbide mononitrate ER 60 mg PO DAILY 90 days lancets (Accu-Chek Softclix Lancets) As directed 3 times per day levalbuterol tartrate 45 mcg/actuation (Xopenex HFA) 2 puffs inhalation Q4-6H PRN losartan 25 mg PO DAILY magnesium oxide 400 mg PO DAILY 90 days metformin 1,000 mg PO BID 90 days metoprolol succinate ER 50 mg PO BEDTIME metoprolol succinate ER 100 mg PO DAILY 90 days omeprazole 20 mg PO DAILY 90 days [One touch Ultra Blue test strips Use 3 times a day] rosuvastatin 10 mg PO DAILY 90 days underpads (Certainty Underpads) Use 1 to 2 times a day walker with brakes and seat HPI HPI 6 mth f/up: Details: Kristin is an 84-year-old female past medical history of hypertension, hyperlipidemia, diabetes, paroxysmal atrial fibrillation, sleep apnea, chest discomfort with evaluation at [facility] and ruled out for ACS. Today she reports ongoing concerns with her blood pressure. She checks it 3 times daily and finds that she has variable readings. When her blood pressure is elevated she has discomfort in the back of her neck and base of her skull. She is telling me this happens every day. She is taking her meds as directed. She had not reporting chest discomfort at this visit. No concerning shortness of breath, PND, orthopnea, edema. She does have occasional heart palpitations but these are not a primary concern today for her. No lightheadedness, presyncope, syncope, falls. She is taking her medications as directed. Daughter is present. 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 [facility] Medical History Acute respiratory disease Type 2 diabetes mellitus with diabetic neuropathy COPD (chronic obstructive pulmonary disease) Left shoulder pain Hyperlipidemia LDL goal <100 Abnormal SPEP Vitamin D deficiency Osteoporosis Age related osteoporosis Physical exam Hypomagnesemia Atrial fibrillation with rapid ventricular response Urinary incontinence Abnormal EKG Screening for osteoporosis Neuropathy Microalbuminuria JONNY (obstructive sleep apnea) Left shoulder pain Anemia GERD (gastroesophageal reflux disease) Coronary artery disease Hypertension Type 2 diabetes mellitus with hyperglycemia Surgical History History of surgery on arm Hx of dilation and curettage Hx of breast biopsy Family History Mother Diabetes mellitus Father CAD (coronary artery disease) Sister Lymphoma Breast cancer Brother Colon cancer Social History Household Members: Family Housing: House Are you a primary child care team lead to a significant other at home: No Do you presently have visiting nurse or other home services: Yes (insurance nurse) Alcohol intake: never Patient Tobacco Use Status: Never used Tobacco e-Cigarette/Vaping Use: Never Used Second Hand Smoke Exposure: No service: No Current occupational status: disabled Cognitive needs: No Hearing needs: No Vision needs: Yes Review of Systems Const All systems reviewed & are unremarkable except as noted in HPI and below ENT Denies dizziness Card Denies chest pain, Denies chest pain at rest, Denies chest pain with activity, Denies rapid heart rate, Denies pedal edema, Denies edema, Denies leg edema, Denies lightheadedness, Denies palpitations, Denies dyspnea, Denies dyspnea on exertion and Denies orthopnea Resp Denies cough, Denies dyspnea and Denies dyspnea on exertion GI Denies hematochezia and Denies change in stool character Musc Denies abnormal gait, Denies limited range of motion, Denies muscle cramps, Denies muscle weakness, Denies numbness, Denies radiating pain into limb, Denies stiffness and Denies tingling Neuro Denies abnormal gait, Denies dizziness, Denies numbness and Denies tingling Endo Denies palpitations Physical Exam Vital Signs: BMI result Body Mass Index 23.2 Const General: cooperative, healthy appearing, comfortable and no acute distress Orientation/consciousness: patient oriented x3 Neck Neck: Yes normal visual inspection Resp Effort & Inspection: normal respiratory effort Auscultation: clear to auscultation bilaterally, rales (left base), no rhonchi and no wheezes Cardio Rate: regular rate Rhythm: regular rhythm Heart sounds: S1 normal heart sound present, S2 normal heart sound present, no gallops, no murmurs and no rubs Neuro General: patient oriented x3 Extrem General: Yes normal to inspection, No no pedal edema and No calf tenderness Psych Appearance: grossly normal Mental Status: mental status grossly normal Speech and movement: Normal speech and movement present Assessment & Plan Assessment & Plan (1) Hypertension: Code(s): I10 - Essential (primary) hypertension Category: Medical Qualifiers: Hypertension type: essential hypertension Qualified Code(s): I10 - Essential (primary) hypertension Plan: Blood pressure readings are her primary concern today. Blood pressure goal less than 130/80. She becomes very anxious and gets discomfort in the back of her neck and head, when her blood pressure is high prompting prior ER evaluations. Blood pressure today initially 150/72, recheck done by me 182/68. Informed her that anxiety may be a component to her elevated readings. Reviewed low-salt diet, med management and instructed to take blood pressure only once weekly, not 3 times daily. Continue current isosorbide, metoprolol. Will increase losartan to 50 mg b.i.d.. Instructed to obtain BMP in 7-10 days. Informed her that if she does have an elevated reading she has to lay down for 20 minutes and relax and then she can recheck blood pressure. Call this office if ongoing concerns with elevated readings. Going forward may need to change her metoprolol to carvedilol. Cardiology follow-up 2 months, sooner if needed (2) PAF (paroxysmal atrial fibrillation): Code(s): I48.0 - Paroxysmal atrial fibrillation Category: Medical Plan: History of paroxysmal atrial fibrillation, treated with rhythm control. On metoprolol for heart rate control. On Eliquis for anticoagulation. Holter monitor done 12/26/24 for 1 day 19 hr, showed SR, average rate 75 b/min, occ PAC and 3 SVE runs, longest 11 beats. Pulse is regular on exam today. Continue Metoprolol xl 100mg in am and 50mg in pm. Continue Eliquis. (3) Chest discomfort: Code(s): R07.89 - Other chest pain Category: Medical Plan: Prior Reports of atypical chest discomfort, band around her lower ribs that occurs when she is anxious and has elevated blood pressures. [facility] ER evaluation for this symptom and ruled out for ACS. She reportedly had a nuclear stress test at [facility] but I am not seeing that result. At present she is not reporting CPs. Unclear if her symptom was musculoskeletal related to anxiety, stress. Reviewed this with her, signs and symptoms of angina reviewed. Continue isosorb memo and metoprolol. (4) Hyperlipidemia LDL goal <70: Code(s): E78.5 - Hyperlipidemia, unspecified Category: Medical Plan: [facility] LDL goal less than 70 in patient with diabetes. Labs done 09/21/2024 showed LDL 42. Continue rosuvastatin. Plan I discussed with the patient that her blood pressure is not well-controlled on her current medications. I recommended increasing her losartan dose to 50 mg t wice daily. I explained that because her last blood test showed that her kidney function and potassium were at the high end of the normal range, we need to monitor these levels closely after increasing the dose. I instructed her that she will need to have a blood test in 7 to 10 days. I informed her that if those lab numbers become too high, we will have to decrease the losartan dose back to the previous level and may need to add a different medication. We will follow up in 2-3 months to assess her blood pressure control. Orders: Orders Basic Metabolic Panel 1 Week I10 - Essential (primary) hypertension Medications: New losartan dose increased 50 mg PO BID 120 tabs 2RF 60 days Patient Instructions: - We are increasing your losartan medication. - You will now take one 50 mg tablet of losartan in the morning and one 50 mg tablet at night. - It is very important that you get a blood test in about 7 to 10 days to check your kidney function and potassium levels. - Continue taking all your other medications as prescribed. - You do not need to check your BP 3 times daily - We will schedule a follow-up appointment for you in about two to three months to check on your blood pressure. Patient was informed and verbally consented to the use of an ambient scribe for clinic note documentation during this visit. Visit time spent on chart review, interview, assessment, orders, documentation. Coding Level of Care Code Est Pt Level 4 (71858) Complex visit Add On G2211 Diagnoses Essential hypertension I10 Hypertension type: essential hypertension PAF (paroxysmal atrial fibrillation) I48.0 Chest discomfort R07.89 Hyperlipidemia LDL goal <70 E78.5 Time Spent (min) 28
== END 2025-06-30 10:47 | disposition home or self-care (01) ==
LOC: HO.HCS 09:56
PROVIDERS: PCP Internal Medicine; Visit Provider Nurse Practitioner Family
DX: I10 Essential (primary) hypertension (principal); I48.0 Paroxysmal atrial fibrillation; R07.89 Other chest pain; E78.5 Hyperlipidemia, unspecified
CPT/HCPCS: 99214; G2211

== ENCOUNTER → 2025-06-30 09:55 | Outpatient (BNVA) | payer MEDICARE, OTHER, MEDICAID, SELFPAY | PROVIDERS: PCP Internal Medicine; Visit Provider Nurse Practitioner Family | DX: I10 Essential (primary) hypertension (principal); I48.0 Paroxysmal atrial fibrillation; R07.89 Other chest pain; E78.5 Hyperlipidemia, unspecified | CPT/HCPCS: 99212 ==